=== PATIENT | female | born 1945 | race Caucasian/White ===

== ENCOUNTER 2018-06-17 11:01 | Outpatient (CLI) | payer MEDICARE, MEDICAID, SELFPAY ==
--- NOTE | 2018-06-17 09:00 | DIABASSESS_ITS ---
ASSESSMENT: Francisca presents today for removal of professional CGM after 7 day study.~ She describes being more aware of her DM management choices while wearing the CGM, and feels was able to impact her BSs in a positive way.~ Monitoring:~ There was no detected hypoglycemia.~ BS pattern in range most of the night and day, with high pattern following 1 or 2 of her meals each day.~ She tracked her food/insulin/exercise/stress events in a paper log.~ INTERVENTION:~ The following AADE-7 self-care topics are addressed per pt s interests and today s assessment of needs. DM MEDS:~ Novolog schedule revised ICR and CF MONITORING:~ Discussed value, benefits, and compared available CGM therapies. Regarding her blood sugar pattern from monitoring, her blood sugar increased with each meal indicating inadequate insulin coverage for food. Given this, discussed having insulin scale that included meals that raise blood sugar versus meals that mallory not have carbohydrate present and she agrees. Also discussed having it increase by 1 unit for correction rather than 2 units and she agrees with that as well. DIETARY:~ Reviewed carb ID and she is able to identify the foods that raise her blood sugar. PLAN:~ Copy of recommendations and CGM reports provided to Francisca upon her request.~ She plans to bring this with her to initial Endo appt next month.~ Francisca expresses desire to obtain personal CGM, and she has chosen to pursue Dexcom G- 6.~ Application provided for this.~ She will notify DM program once she hears back about insurance coverage, however anticipate CGM will be a covered.~ Francisca s personal goal is to work with Endo to be evaluated for a CSII.~ Francisca s Novolog schedule is revised for her with the following scale: Francisca has chosen the following ACTION PLAN: *Check-in every 1-2wks with Edita Drew RD, CDE for revisions to bolus schedule as needed.~ *She will continue to exercise 2 days a week at the DM exercise program.~ ~~~~ I m eating carb Humalog: I m not eating Humalog: Below 100 0 units Below 100 0 101-130 3 101-130 0 131-150 6 131-150 0 151-170 7 151-170 1 171-190 8 171-190 2 191-210 9 191-210 3 211-230 10 211-230 4 231-250 11 231-250 5 251-270 12 251-270 6
== END 2018-06-17 11:02 ==
PROVIDERS: PCP Family Medicine; Visit Provider Dietitian, Registered
DX: E11.9 Type 2 diabetes mellitus without complications (principal); Z79.4 Long term (current) use of insulin; Z71.3 Dietary counseling and surveillance
CPT/HCPCS: 95250

== ENCOUNTER 2018-06-17 11:27 | Outpatient (RCR) | payer SELFPAY | END 2018-06-18 23:59 | disposition home or self-care (01) | LOC: CR 11:27 | PROVIDERS: PCP Family Medicine; Visit Provider Family Medicine | DX: Z51.89 Encounter for other specified aftercare (principal) ==

== ENCOUNTER 2018-06-24 16:22 | Outpatient (REF) | payer MEDICARE, MEDICAID, SELFPAY | END 2018-06-24 16:42 | LOC: NCHCN 16:22 | PROVIDERS: PCP Family Medicine; Visit Provider Family Medicine | DX: R32 Unspecified urinary incontinence (principal) | CPT/HCPCS: 87077; 87086; 87186 ==

== ENCOUNTER 2018-06-29 01:01 | Outpatient (CLI) | payer MEDICARE, MEDICAID, SELFPAY ==
--- NOTE | 2018-06-29 10:59 | DI.RAD_ITS ---
SYMPTOM/DIAGNOSIS: COUGH, R05 PA AND LATERAL CHEST: Comparison is made with 26 July 2015. The heart size is normal. A hiatal hernia is again noted, moderate in size. The lungs appear clear. No infiltrate or effusion is seen. IMPRESSION: Hiatal hernia. No acute abnormality.
== END 2018-06-29 01:21 ==
PROVIDERS: PCP Family Medicine; Visit Provider Family Medicine
DX: R05 Cough (principal); K44.9 Diaphragmatic hernia without obstruction or gangrene
CPT/HCPCS: 71046

== ENCOUNTER 2018-07-06 16:43 | Outpatient (REF) | payer MEDICARE, MEDICAID, SELFPAY | END 2018-07-06 17:03 | LOC: NCHCN 16:43 | PROVIDERS: PCP Family Medicine; Referring Provider Family Medicine; Visit Provider Family Medicine | DX: N39.0 Urinary tract infection, site not specified (principal) | CPT/HCPCS: 87086 ==

== ENCOUNTER 2018-07-08 00:54 | Outpatient (CLI) | payer MEDICARE, MEDICAID, SELFPAY ==
--- NOTE | 2018-07-08 10:50 | DI.MAMMO_ITS ---
SYMPTOMS/DIAGNOSIS: SCREENING, Z12.31 MAMMOGRAM: Mammograms were interpreted according to the usual protocol including computer analysis with CAD system, tomosynthesis and C view imaging. The breast tissue is of moderate radiodensity. There is no evidence of a mass. There are no suspicious calcifications and there has been no significant interval change when compared with prior images. SUMMARY: No evidence of malignancy. Yearly screening mammography is recommended. Category I. Category B for breast density. SA ASSESSMENT OF FINDINGS: Negative. Category 1. Patient will receive a letter notifying them of these results. BI-RADS category B. There are scattered areas of fibroglandular density.
== END 2018-07-08 01:14 ==
PROVIDERS: PCP Family Medicine; Visit Provider Family Medicine
DX: Z12.31 Encounter for screening mammogram for malignant neoplasm of breast (principal)
CPT/HCPCS: 77063; 77067

== ENCOUNTER 2018-07-15 09:00 | Outpatient (RCR) | payer SELFPAY | END 2018-07-18 23:59 | disposition home or self-care (01) | LOC: CR 09:00 | PROVIDERS: PCP Family Medicine; Visit Provider Family Medicine | DX: Z51.89 Encounter for other specified aftercare (principal) ==

== ENCOUNTER 2018-07-19 14:34 | Outpatient (RCR) | payer SELFPAY | END 2018-08-18 23:59 | disposition home or self-care (01) | LOC: CR 14:34 | PROVIDERS: PCP Family Medicine; Visit Provider Family Medicine | DX: Z51.89 Encounter for other specified aftercare (principal) ==

== ENCOUNTER 2018-07-26 09:50 | Outpatient (REF) | payer MEDICARE, SELFPAY, MEDICAID ==
[2018-07-26 20:47] LABS: C-Reactive Protein 0.21 mg/dL (0.0-0.3)
[2018-07-26 21:21] LABS: ESR 11 MM/HR (0-30)
== END 2018-07-26 10:10 ==
LOC: NCHCN 09:50
PROVIDERS: PCP Family Medicine; Visit Provider Specialist/Technologist Athletic Trainer
DX: M35.3 Polymyalgia rheumatica (principal); T30.4 Corrosion of unspecified body region, unspecified degree
CPT/HCPCS: 85652; 86140

== ENCOUNTER 2018-08-19 04:55 | Outpatient (RCR) | payer SELFPAY | END 2018-09-17 23:59 | disposition home or self-care (01) | LOC: CR 04:55 | PROVIDERS: PCP Family Medicine; Visit Provider Family Medicine | DX: Z51.89 Encounter for other specified aftercare (principal) ==

== ENCOUNTER 2018-09-30 09:00 | Outpatient (RCR) | payer SELFPAY | END 2018-10-18 23:59 | LOC: CR 09:00 | PROVIDERS: PCP Family Medicine; Visit Provider Family Medicine | DX: Z51.89 Encounter for other specified aftercare (principal) ==

== ENCOUNTER 2018-09-30 17:01 | Outpatient (CLI) | payer MEDICARE, MEDICAID, SELFPAY ==
--- NOTE | 2018-09-30 11:00 | DIABASSESS_ITS ---
DESCRIPTION/ASSESSMENT: Francisca Kong presents for diabetes self management with her new Dexcom G5 for insertion instruction and support. She voices excitement about using this device to help her improve glycemic control. She voices concern about being able to insert device independently with her degree of visual impairment. INTERVENTION: Laine Gordillo, RD, CDE and myself reviewed instructions, precautions and procedure for insertion and use of the G5 per protocol. The device is inserted without difficulty and linked to the field operations coordinator. Francisca understands that she needs to calibrate using her new glucometer when the field operations coordinator indicates. Reviewed differences between G5 and G6 to clarify current procedures. Set up new glucometer and calibrated it to the time on the CGM. ACTION PLAN: Francisca will call with any questions or concerns. She will return for new insertion in 2 weeks. Individual DSME/T __2__ units billed TIME IN: 1100 OUT: 1210 No DM group education series being offered at this time.
== END 2018-09-30 17:21 ==
PROVIDERS: PCP Family Medicine; Visit Provider Dietitian, Registered
DX: E11.9 Type 2 diabetes mellitus without complications (principal); Z79.4 Long term (current) use of insulin; Z71.3 Dietary counseling and surveillance
CPT/HCPCS: G0108

== ENCOUNTER 2018-11-04 13:23 | Outpatient (REF) | payer MEDICARE, MEDICAID, SELFPAY ==
[2018-11-04 21:38] LABS: HCT 39.3 % (36.0-46.0); HGB 12.8 g/dL (12.0-15.5); Mean Corp. HGB Concentration 32.6 g/dL (32.0-36.0); Mean Corpuscular Hemoglobin 29.9 pg (27.0-33.0); Mean Corpuscular Volume 91.8 fL (80-95); Mean Platelet Volume 11.6 fL (8.0-11.0); Platelet Count 235 x1000/uL (130-400); RBC 4.28 m/cumm (4.00-5.20); RBC Distribution Width 12.8 % (11.7-14.6); White Blood Cell Count 10.52 k/cumm (4.4-10.8)
[2018-11-04 21:44] LABS: ALT 27 U/L (12-78); AST 17 U/L (15-37); Albumin 3.7 g/dL (3.4-5.0); Alkaline Phosphatase 72 U/L (46-116); Anion Gap 11.3 mmol/L (3-11); BUN 17 mg/dL (7-18); Bilirubin, Total 0.3 mg/dL (0.2-1.0); C-Reactive Protein 0.25 mg/dL (0.0-0.3); CO2 26.7 mmol/L (21.0-32.0); CREATININE 0.87 mg/dL (0.55-1.02); Calcium 9.2 mg/dL (8.5-10.1); Chloride 102 mmol/L (98-107); Glucose 192 mg/dL (70-100); Lipase 81 U/L (73-393); Magnesium 1.7 mg/dL (1.8-2.4); Potassium 4.3 mmol/L (3.5-5.1); Sodium 140 mmol/L (136-145); Total Protein 6.9 g/dL (6.4-8.2)
[2018-11-04 22:22] LABS: ESR 10 MM/HR (0-30)
== END 2018-11-04 13:43 ==
LOC: NCHCN 13:23
PROVIDERS: PCP Family Medicine; Visit Provider Family Medicine
DX: R10.11 Right upper quadrant pain (principal); M35.3 Polymyalgia rheumatica; E11.9 Type 2 diabetes mellitus without complications
CPT/HCPCS: 80053; 83690; 85027; 85652; 83735; 86140

== ENCOUNTER 2018-11-16 09:00 | Outpatient (RCR) | payer SELFPAY | END 2018-11-18 23:59 | disposition home or self-care (01) | LOC: CR 09:00 | PROVIDERS: PCP Family Medicine; Visit Provider Family Medicine | DX: Z51.89 Encounter for other specified aftercare (principal) ==

== ENCOUNTER 2018-12-07 00:52 | Outpatient (CLI) | payer MEDICARE, MEDICAID, SELFPAY ==
[2018-12-07 10:39] LABS: Bilirubin Negative (Negative); Blood Moderate (Negative); Clarity Clear; Glucose Negative (Negative); Ketones Negative (Negative); Leukocyte Esterase Negative (Negative); Nitrite Negative (Negative); Specific Gravity 1.025 (1.005-1.025); Urobilinogen 0.2 EU/dL (Up TO 0.2); pH 5.5 (5-8)
--- NOTE | 2018-12-07 10:45 | DIABASSESS_ITS ---
DESCRIPTION/ASSESSMENT: Francisca presents for diabetes self management every 2 weeks for CGM placement and today we will review her diabetes self management focused on nutrition as she notes her blood sugars are elevated and wants to correct this. Food Guidelines Francisca documents her food and eats minimally most meals: breakfast sausage links and 2 eggs; lunch homemade clam chowder, supper steak, 2 slices sourdough bread; instant pudding. She might have a candy between meals. She has cranberry juice with water in the afternoon. She dislikes most vegetables. Physical Activity - attends cardiac rehab twice weekly. Because she is legally blind she does not feel confident to exercise independently. Medication - She manages blood sugar with 12u Levemir AM and 4u PM and mealtime Humalog 4-16 units per meal based on blood sugar. She is on Prednisone down to 4mg daily next week. Monitoring - 3 times a day at least, and she wears the Dexcom G5 CGM. She tracks all blood sugars. Risks/Related health history - Francisca relates multiple co-morbidities including back pain and most recently kidney stones. Coping - Francisca relates high stress in her life with her partner forgetting and on a 'spectrum'; children with health issues. She has coping mechanisms including meditation, books for the blind, and volunteering. 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 INTERVENTION: DSME is provided in the following AADE 7 areas based on patients interest and assessment of needs: Food Guidelines - discussed carbohydrate sources and distribution; weight acceptance; recipes; Francisca eats minimally Physical Activity - discussed chair exercises as possible. Monitoring - CGM replaced without difficulty. Francisca is able to input all calibration values. Medication - Francisca has hyperglycemia above 200 most days indicating inadequate insulin administration. Fastin blood sugars 088=475. Discussed increasing Levemir by 1 unit in the evening. In addition, noon blood sugars are always elevated from breakfast. She would benefit from increasing her mealtime insulin dose by 1 unit at breakfast. Coping - discussed options for getting to do the things that she enjoys. ACTION PLAN: Francisca will cut her carbohydrate portions at one meal per day set time to dictate her book at least one day a week consider increasing breakfast mealtime insulin by 1 unit, or consider increasing Levemir at night by 1 unit Individual MNT __2__ units billed TIME IN: 1035 OUT: 1110 for nutrition; out at 1145 including DSME No DM group education series being offered at this time.
[2018-12-07 11:10] LABS: Epithelial Cells Many HPF (Negative); RBC 20-50 (0-2)
[2018-12-07 11:11] LABS: Bacteria Moderate HPF (Negative); C & S Indicated? No/Sq. Contamination; Casts Negative LPF (Negative); Crystals Negative HPF (Negative); Mucus Heavy (Negative)
== END 2018-12-07 01:12 ==
PROVIDERS: PCP Family Medicine; Visit Provider Dietitian, Registered
DX: R32 Unspecified urinary incontinence (principal); E11.9 Type 2 diabetes mellitus without complications; Z79.4 Long term (current) use of insulin; Z71.3 Dietary counseling and surveillance
CPT/HCPCS: 97802; 81003; 81015

== ENCOUNTER 2018-12-07 10:00 | Outpatient (RCR) | payer SELFPAY | END 2018-12-16 23:59 | disposition home or self-care (01) | LOC: CR 10:00 | PROVIDERS: PCP Family Medicine; Visit Provider Family Medicine | DX: Z51.89 Encounter for other specified aftercare (principal) ==

== ENCOUNTER 2018-12-07 10:16 | Outpatient (REF) | payer MEDICARE, MEDICAID, SELFPAY | END 2018-12-07 10:36 | LOC: NCHCN 10:16 | PROVIDERS: PCP Family Medicine; Visit Provider Family Medicine | DX: R32 Unspecified urinary incontinence (principal) ==

== ENCOUNTER 2018-12-30 01:41 | Outpatient (CLI) | payer MEDICARE, MEDICAID, SELFPAY ==
--- NOTE | 2018-12-30 10:30 | DIABASSESS_ITS ---
DESCRIPTION/ASSESSMENT: Francisca presents for diabets self management to download her CGM to review patterns. Her printout indicates hyperglycemia through the night 2/4 nights; a blood sugar rise between noon and 7PM. She follows her old insulin dosing scale. Francisca continues to appreciate the CGM for its alerts and to have a reading at all times. Blood sugars over the past week fasting 101-147; pre=lunch 226-313; pre-supper 230=869; bedtime 156-245. She is requesting a revision of the scale that includes carbohydrate so that it better matches her old scale without the carbohydrate consideration and will address her hyperglycemia as the day progresses. She is taking 7-10 units Novolog with meals; Levemir 12 units AM 4 units PM. Total basal insulin 16units; total bolus insulin 42-52 units. Francisca states she is trying hard to limit carbohydrates but she does 'splurge' in the evening at times. SHe has minimal carbohydrate with her meals. INTERVENTION: Francisca takes nearly 3 x bolus insulin to basal insulin. Fasting blood sugars reasonably close to acceptable levels but has room to improve. Her blood sugars increase between breakfast and lunch but correct by supper. She is given the following insulin dosing scale: Mealtime Insulin Dosing for Francisca I?m eating carb Humalog: I?m not eating carb Humalog Below 100 0 units Below 100 0 101-130 4 101-130 0 131-150 7 131-150 1 151-165 8 151-165 2 165-180 9 166-180 3 181-195 10 181-195 4 196-210 11 196-210 5 211-225 12 211-225 6 226-240 13 226-240 7 241-255 14 241-255 14 256-270 15 256-270 15 271-285 16 271-285 16 Further suggested she take 6 units Levemir at night. Given that she has a low alert set, she will unlikely have an untreated hypoglycemic episode. She has what she need to treat hypoglycemia. She will return in 1 week for CGM placement. ACTION PLAN: Use new Humalog dosing scale; consider increasing Levemir from 4 to 6 units at night. Individual DSME/T __2__ units billed TIME IN: 1030 OUT: 1130 No DM group education series being offered at this time.
== END 2018-12-30 02:01 ==
PROVIDERS: PCP Family Medicine; Visit Provider Dietitian, Registered
DX: E11.9 Type 2 diabetes mellitus without complications (principal); Z79.4 Long term (current) use of insulin; Z71.3 Dietary counseling and surveillance
CPT/HCPCS: G0108

== ENCOUNTER 2019-01-11 10:00 | Outpatient (RCR) | payer SELFPAY | END 2019-01-16 23:59 | disposition home or self-care (01) | LOC: CR 10:00 | PROVIDERS: PCP Family Medicine; Visit Provider Family Medicine | DX: Z51.89 Encounter for other specified aftercare (principal) ==

== ENCOUNTER 2019-02-15 10:00 | Outpatient (RCR) | payer SELFPAY | END 2019-02-15 23:59 | disposition home or self-care (01) | LOC: CR 10:00 | PROVIDERS: PCP Family Medicine; Visit Provider Family Medicine | DX: Z51.89 Encounter for other specified aftercare (principal) ==

== ENCOUNTER 2019-02-24 01:45 | Outpatient (CLI) | payer MEDICARE, MEDICAID, SELFPAY ==
--- NOTE | 2019-02-24 11:00 | DIABASSESS_ITS ---
DESCRIPTION/ASSESSMENT: Francisca Kong presents for diabetes self management support focused on carbohydrate. She has a CGM that is placed here every two weeks. She is happy with the device and its features. Francisca is currently concerned with her hyperglycemia during the day. Francisca takes 12u Levemir twice daily and Humalog 3-4 times a day at mealtime, regardless of whether she eats carbohydrate at the meal. Generally she is taking ~40 units Humalog a day. She is not comfortable counting carbohydrate as a way to dose her mealtime insulin. She also uses the scale for insulin with carbohydrate even if she is not eating carbohydrate. She has trialed not eating carbohydrate at meals and finds her blood sugars do not spike after the meal. Fasting blood sugars 130-155 over past 4 days; 205-306 at noon; 173 -310 at supper and one test at bedtime of 220. Given that her blood sugars are always elevated after fasting, insulin adjustment is suggested, especially given she has CGM to alert her to low blood sugars. Francisca continues to experience high stress and she is aware of this impact on glycemic control. INTERVENTION: Reviewed carbohydrate sources, portions, distribution in what she usually eats. Reviewed carbohydrate intake in relation to her insulin dose and responding blood sugars. Suggest increase in mealtime insulin starting at 3 units for below 100mg/dl, Discussed increasing Levemir to 14 units twice daily given the imbalance of basal to bolus insulin during the day. Reviewed stress management and self-care efforts. PLAN: Francisca will follow the new insulin dosing scale and follow up next week to review food and blood sugars when she returns for CGM placement. Individual MNT __3__ units billed out of a total of 65 minutes No DM group education series being offered at this time.
== END 2019-02-24 02:05 ==
PROVIDERS: PCP Family Medicine; Visit Provider Dietitian, Registered
DX: E11.9 Type 2 diabetes mellitus without complications (principal); Z76.4 Other boarder to healthcare facility; Z71.3 Dietary counseling and surveillance
CPT/HCPCS: 97803

== ENCOUNTER 2019-02-25 13:32 | Outpatient (REF) | payer MEDICARE, MEDICAID, SELFPAY ==
[2019-02-25 19:37] LABS: Abs Immature Grans 0.02 k/cumm (0.0-0.09); Absolute Basophil Count 0.02 k/cumm (0.0-0.2); Absolute Eosinophil Count 0.06 k/cumm (0.0-0.7); Absolute Lymphocyte Count 1.72 k/cumm (1.2-3.4); Absolute Neutrophil Count 6.89 k/cumm (1.2-6.7); Basophils % 0.2; Eosinophils % 0.7; HCT 38.4 % (36.0-46.0); HGB 12.1 g/dL (12.0-15.5); Immature Grans % 0.2; Lymphocytes % 18.9; Mean Corp. HGB Concentration 31.5 g/dL (32.0-36.0); Mean Corpuscular Hemoglobin 28.7 pg (27.0-33.0); Mean Platelet Volume 11.8 fL (8.0-11.0); Monocytes % 4.4; Neutrophils % 75.6; Platelet Count 208 x1000/uL (130-400); RBC 4.22 m/cumm (4.00-5.20); RBC Distribution Width 13.6 % (11.7-14.6); White Blood Cell Count 9.11 k/cumm (4.4-10.8)
[2019-02-25 19:58] LABS: C-Reactive Protein 0.28 mg/dL (0.0-0.3)
[2019-02-25 20:22] LABS: ESR 10 MM/HR (0-30)
== END 2019-02-25 13:52 ==
LOC: NCHCN 13:32
PROVIDERS: PCP Family Medicine; Visit Provider Family Medicine
DX: R10.12 Left upper quadrant pain (principal); N95.1 Menopausal and female climacteric states
CPT/HCPCS: 85652; 85025; 86140

== ENCOUNTER 2019-03-08 10:00 | Outpatient (RCR) | payer SELFPAY | END 2019-03-18 23:59 | disposition home or self-care (01) | LOC: CR 10:00 | PROVIDERS: PCP Family Medicine; Visit Provider Family Medicine | DX: Z51.89 Encounter for other specified aftercare (principal) ==

== ENCOUNTER 2019-03-22 01:45 | Outpatient (CLI) | payer MEDICARE, MEDICAID, SELFPAY ==
--- NOTE | 2019-03-22 10:30 | DIABASSESS_ITS ---
DESCRIPTION/ASSESSMENT: CGM insert today and to interpret insulin dosing guide from [facility]. She expresses frustration that they did not appear to appreciate her lack of vision and difficulty identifying carbohydrate. INTERVENTION: Placed [facility] dosing guide into familiar format for Francisca. Reviewed materials with her. ACTION PLAN: Will mail her the revised insulin dosing guide. Individual DSME/T __0__ units billed TIME IN: 1030 OUT: 1045 No DM group education series being offered at this time. Mealtime Insulin Dosing for Francisca I?m eating carb Humalog: I?m not eating carb Humalog Below 100 2units Below 100 0 101-130 4 101-130 0 131-150 6 131-150 0 151-165 9 151-180 1 165-180 10 180-210 2 181-195 11 210-240 3 196-210 12 241-270 4 211-225 13 271-300 5 226-240 14 301-330 6 241-255 15 331-360 7 256-270 16 361-390 8 271-285 17 391-420 9 This assumes 60 grams carbohydrate per meal
== END 2019-03-22 02:05 ==
PROVIDERS: PCP Family Medicine; Visit Provider Dietitian, Registered
DX: E11.9 Type 2 diabetes mellitus without complications (principal); Z79.4 Long term (current) use of insulin; Z71.3 Dietary counseling and surveillance

== ENCOUNTER 2019-04-14 11:25 | Outpatient (RCR) | payer SELFPAY | END 2019-04-17 23:59 | disposition home or self-care (01) | LOC: CR 11:25 | PROVIDERS: PCP Family Medicine; Visit Provider Family Medicine | DX: Z51.89 Encounter for other specified aftercare (principal) ==

== ENCOUNTER 2019-04-23 07:10 | Outpatient (CLI) | payer MEDICARE, MEDICAID, SELFPAY ==
[2019-04-23 09:42] LABS: HCT 38.2 % (36.0-46.0); HGB 12.4 g/dL (12.0-15.5)
[2019-04-23 10:24] LABS: ALT 22 U/L (12-78); AST 6 U/L (15-37); Albumin 3.7 g/dL (3.4-5.0); Alkaline Phosphatase 85 U/L (46-116); Anion Gap 11.5 mmol/L (3-11); BUN 24 mg/dL (7-18); Bilirubin, Total 0.3 mg/dL (0.2-1.0); CO2 26.5 mmol/L (21.0-32.0); CREATININE 0.79 mg/dL (0.55-1.02); Calcium 9.5 mg/dL (8.5-10.1); Chloride 104 mmol/L (98-107); Glucose 111 mg/dL (70-100); Potassium 4.3 mmol/L (3.5-5.1); Sodium 142 mmol/L (136-145); Total Protein 6.7 g/dL (6.4-8.2)
[2019-04-23 10:29] LABS: Digoxin 0.38 ng/mL (0.90-2.00)
[2019-04-23 10:32] LABS: C-Reactive Protein < 0.05 mg/dL (0.0-0.3)
== END 2019-04-23 07:30 ==
PROVIDERS: PCP Family Medicine; Visit Provider Nurse Practitioner Family
DX: I47.1 Supraventricular tachycardia (principal); Z79.899 Other long term (current) drug therapy; Z51.81 Encounter for therapeutic drug level monitoring; L40.50 Arthropathic psoriasis, unspecified
CPT/HCPCS: 36415; 80053; 80162; 85014; 85018; 86140

== ENCOUNTER 2019-05-17 13:27 | Outpatient (RCR) | payer SELFPAY | END 2019-05-18 23:59 | disposition home or self-care (01) | LOC: CR 13:27 | PROVIDERS: PCP Family Medicine; Visit Provider Family Medicine | DX: Z51.89 Encounter for other specified aftercare (principal) ==

== ENCOUNTER 2019-06-14 11:44 | Outpatient (RCR) | payer SELFPAY | END 2019-06-18 23:59 | disposition home or self-care (01) | LOC: CR 11:44 | PROVIDERS: PCP Family Medicine; Visit Provider Family Medicine | DX: Z51.89 Encounter for other specified aftercare (principal) ==

== ENCOUNTER 2019-06-21 00:43 | Outpatient (CLI) | payer MEDICARE, MEDICAID, SELFPAY ==
--- NOTE | 2019-06-21 11:22 | DI.RAD_ITS ---
SYMPTOMS/DIAGNOSIS: LOW BACK PAIN, M54.5 LUMBAR SPINE: Comparison is made with 4Feb09. There is no evidence of compression fracture. Endplate osteophytes are seen throughout. The degenerative disc changes have worsened somewhat when compared with the previous exam. There are facet degenerative changes at L 4 - 5 causing mild L 4 - 5 spondylolisthesis. There is no spondylolysis or significant scoliosis. Severe degenerative disc changes are again seen at L 5 - S 1. IMPRESSION: Degenerative changes. No acute abnormality.
== END 2019-06-21 01:03 ==
PROVIDERS: PCP Family Medicine; Visit Provider Family Medicine
DX: M54.5 Low back pain (principal); M51.37 Other intervertebral disc degeneration, lumbosacral region; M43.17 Spondylolisthesis, lumbosacral region
CPT/HCPCS: 72110

== ENCOUNTER 2019-07-07 10:00 | Outpatient (RCR) | payer SELFPAY | END 2019-07-18 23:59 | disposition home or self-care (01) | LOC: CR 10:00 | PROVIDERS: PCP Family Medicine; Visit Provider Family Medicine | DX: Z51.89 Encounter for other specified aftercare (principal) ==

== ENCOUNTER → 2019-07-07 11:37 | Outpatient (BNVA) | payer MEDICARE, MEDICAID, SELFPAY | PROVIDERS: PCP Family Medicine; Visit Provider Internal Medicine Cardiovascular Disease | DX: I25.10 Atherosclerotic heart disease of native 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 without angina pectoris (principal); I10 Essential (primary) hypertension; I47.1 Supraventricular tachycardia; E11.42 Type 2 diabetes mellitus with diabetic polyneuropathy; J44.9 Chronic obstructive pulmonary disease, unspecified; Z79.4 Long term (current) use of insulin; Z87.891 Personal history of nicotine dependence | CPT/HCPCS: 99214 ==

== ENCOUNTER 2019-07-16 09:41 | Emergency (ER) | payer MEDICARE, MEDICAID, SELFPAY ==
[2019-07-16] VITALS (52 sets, daily range): BP systolic 128–169; BP diastolic 62–102; PULSE 73–93; RESP 12–30; TEMP 36.5; O2SAT 93–99
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
[2019-07-16 10:28] LABS: Bilirubin Negative (Negative); Blood Negative (Negative); Clarity Clear (Clear); Glucose 100 mg/dL (Negative); Ketones Negative (Negative); Leukocyte Esterase Negative (Negative); Nitrite Negative (Negative); Specific Gravity <= 1.005 (1.005-1.025); Urobilinogen 0.2 EU/dL (Up TO 0.2); pH 5.5 (5-8)
[2019-07-16 10:32] LABS: Abs Immature Grans 0.04 k/cumm (0.0-0.09); Absolute Basophil Count 0.01 k/cumm (0.0-0.2); Absolute Eosinophil Count 0.04 k/cumm (0.0-0.7); Absolute Lymphocyte Count 0.86 k/cumm (1.2-3.4); Absolute Neutrophil Count 11.55 k/cumm (1.2-6.7); Basophils % 0.1; Eosinophils % 0.3; HCT 36.7 % (36.0-46.0); Immature Grans % 0.3; Lymphocytes % 6.4; Mean Corp. HGB Concentration 32.7 g/dL (32.0-36.0); Mean Corpuscular Hemoglobin 29.7 pg (27.0-33.0); Mean Corpuscular Volume 90.8 fL (80-95); Mean Platelet Volume 10.9 fL (8.0-11.0); Monocytes % 6.7; Neutrophils % 86.2; Platelet Count 197 x1000/uL (130-400); RBC 4.04 m/cumm (4.00-5.20); RBC Distribution Width 13.7 % (11.7-14.6)
[2019-07-16 10:45] LABS: ALT 23 U/L (14-59); AST 12 U/L (15-37); Albumin 3.5 g/dL (3.4-5.0); Alkaline Phosphatase 67 U/L (46-116); Anion Gap 13.3 mmol/L (3-11); BUN 24 mg/dL (7-18); Bilirubin, Total 0.6 mg/dL (0.2-1.0); CO2 24.7 mmol/L (21.0-32.0); CREATININE 1.51 mg/dL (0.55-1.02); Calcium 8.9 mg/dL (8.5-10.1); Chloride 99 mmol/L (98-107); Glucose 188 mg/dL (70-100); Magnesium 1.8 mg/dL (1.8-2.4); Sodium 137 mmol/L (136-145); Total Protein 7.8 g/dL (6.4-8.2)
[2019-07-16 10:56] LABS: Troponin I < 0.05 ng/mL (0.00-0.06)
--- NOTE | 2019-07-16 12:05 | DI.CT_ITS ---
EXAM: CT ABDOMEN PELVIS WO CLINICAL HISTORY: r/o kidney stone vs SBO. TECHNIQUE: .Imaging Protocol: Axial computed tomography images with coronal and sagittal reformatted images were created and reviewed CONTRAST MATERIAL: Intravenous: Omnipaque 350 Contrast volume:0 cc contrast route:IV - Oral:No COMPARISON: RENAL COLIC WO CONTRAST from 10/31/2015 FINDINGS: ABDOMEN: Lung Bases: Normal where visualized. Liver: There is moderate diffue fatty infiltration of the liver. No measurable mass. Gallbladder and biliary tract: There is a density in the dependent portion of the gallbladder suspici ous for stone. There is no biliary ductal dilatation. Pancreas: Normal density, no abnormal calcifications or inflammatory process. Spleen: Normal. Kidneys: Normal size, contour and axis. There is a 5 x 1 cm stone at the left ureteropelvic junction. It causes moderate hydronephrosis. There are right renal cysts present. Adrenal glands: No masses seen. Abdominal Aorta: Abdominal portion non-dilated. No significant abdominal or pelvic adenopathy is pres ent. PELVIS: Bladder: Symmetric distention, no gross wall thickening. The reproductive organs are unremarkable as visualized. Bowel: No obstruction or bowel wall thickening. There is colonic diverticulosis, but no evidence of a cute diverticulitis is present. There is a large hiatal hernia present Peritoneal cavity: No ascites, collection or mesenteric inflammatory response. Bones: Degenerative changes are present throughout the spine. IMPRESSION: 0.5 x 1 cm bone at the left ureteropelvic junction causing moderate left hydronephrosis DATA REPOSITORY: All CT scans at this facility are submitted to the National Radiology Data Registry (NRDR) Dose Index Registry (DIR) with the [employer] (A[employer]). RADIATION OPTIMIZATION: All CT scans at this facility use at least one of these dose optimization te chniques: automated exposure control; mA and/or kV adjustment per patient size (includes targeted exa ms where dose is matched to clinical indication); or iterative reconstruction.
[2019-07-16] MEDS: Normal Saline 500 ML IV (12:30)
[2019-07-16] MEDS: Lidocaine 5% Patch 1 PATCH TP (13:15)
[2019-07-16] MEDS: oxyCODONE 5 MG TAB PO (13:16)
--- NOTE | 2019-07-16 13:35 | DI.VRAD_ITS ---
PROCEDURE INFORMATION: Exam: CT Abdomen and Pelvis Without Contrast Exam date and time: 07/16/2019 11:59 AM Clinical history: 74 years old, female; Abdominal pain; Generalized; Patient HX: R/O kidney stone vs sbo TECHNIQUE: Imaging protocol: Computed tomography of the abdomen and pelvis without contrast. Radiation optimization: All CT scans at this facility use at least one of these dose optimization techniques: automated exposure control; mA and/or kV adjustment per patient size (includes targeted exams where dose is matched to clinical indication); or iterative reconstruction. COMPARISON: US PELVIS TRANSVAG 03/21/2014 3:06 PM FINDINGS: Liver: Enlarged fatty infiltrated liver. Gallbladder and bile ducts: Subtle layering density in the gallbladder. No calcified stones. No ductal dilation. Pancreas: Unremarkable. No ductal dilation. Spleen: Unremarkable.No splenomegaly. Adrenals: Unremarkable. No mass. Kidneys and ureters: Obstructive stone at the left ureteral pelvic junction produces moderate left hydronephrosis and perinephric fat stranding. The stone measures 5 mm diameter and 10 mm in length. Distally, the left ureter is normal caliber. Right renal cysts, largest measures approximately 6 cm and has simple features. Stomach and bowel: Large hiatal hernia containing at least half of the stomach. Small bowel is unremarkable. A moderate amount of solid stool and gas in the colon.Distal colonic diverticulosis without signs of diverticulitis. No evidence of bowel wall thickening, inflammation, obstruction or perforation. Appendix: No evidence of appendicitis. Intraperitoneal space: Unremarkable. No free air. No fluid collection. Vasculature: Unremarkable. No abdominal aortic aneurysm. Lymph nodes: Unremarkable. No enlarged lymph nodes. Bladder: Unremarkable as visualized. Reproductive: Unremarkable as visualized. Bones/joints: No acute bony abnormality. Multilevel degenerative changes of the spine, most significant at L2-3 and L4-5. Soft tissues: Tiny umbilical hernia containing fat only. IMPRESSION: 1. 5 mm diameter stone at the left UPJ produces moderate left hydronephrosis. 2. Gallbladder sludge or microlithiasis. No obstruction or inflammation. 3. Large hiatal hernia. 4. No small bowel obstruction. Dictated and Authenticated by: Alexsandra Ray MD. Ordering:CLIFF Davis MD
--- NOTE | 2019-07-16 14:10 | DI.RAD_ITS ---
EXAM: XR PORTABLE CHEST AP CLINICAL HISTORY: sob, r/o acute disease. TECHNIQUE: 2D digital imaging was performed. COMPARISON: XR CHEST 2V PA LATERAL from 06/29/2018 FINDINGS: LUNGS: No focal consolidating infiltrates are present. There is no pleural effusion or pneumothorax. No pleural abnormality seen. HEART: Normal. MEDIASTINUM: There is a large hiatal hernia. The pulmonary vasculature appears grossly unremarkable. OTHER FINDINGS: None. IMPRESSION: No acute pulmonary findings.
--- NOTE | 2019-07-16 14:27 | DI.VRAD_ITS ---
PROCEDURE INFORMATION: Exam: XR Chest, 1 View Exam date and time: 07/16/2019 2:03 PM Clinical history: 74 years old, female; Other: SOB, R/O acute disease TECHNIQUE: Imaging protocol: XR of the chest Views: 1 view. COMPARISON: CR XR CHEST 2V PA LATERAL 06/29/2018 10:44 AM FINDINGS: Lungs: Bilateral dependent atelectasis. No consolidation. Pleural space: Unremarkable. No pleural effusion. No pneumothorax. Heart/Mediastinum: Large hiatal hernia with associated atelectasis. Heart size cannot be accurately assessed due to the large hiatal hernia. Mild aortic wall calcifications. Bones/joints: No acute bony abnormality. IMPRESSION: 1. Large hiatal hernia. 2. Negative for acute cardiopulmonary pathology. Dictated and Authenticated by: Alexsandra Ray MD. Ordering:CLIFF Davis MD
[2019-07-16] MEDS: Tamsulosin 0.4 MG CAPCR PO (14:30)
--- NOTE | 2019-07-16 14:32 | NUR.NOTE ---
referral sent [facility].Nursing Note:
--- NOTE | 2019-07-16 14:32 | NUR.NOTE ---
pt medicated as per mdo with flomax Nursing Note:
== END 2019-07-16 14:48 | disposition home or self-care (01) ==
PROVIDERS: Emergency Provider Physician Assistant; PCP Family Medicine
DX: N13.0 Hydronephrosis with ureteropelvic junction obstruction (principal); K59.00 Constipation, unspecified; E11.9 Type 2 diabetes mellitus without complications; I10 Essential (primary) hypertension; J44.9 Chronic obstructive pulmonary disease, unspecified; Z79.84 Long term (current) use of oral hypoglycemic drugs; Z87.891 Personal history of nicotine dependence
CPT/HCPCS: 36415; 80053; 96360; 99285; 71045; 74176; 81003; 83735; 84484; 85025; 99284

== ENCOUNTER 2019-07-18 12:13 | Inpatient (IN) | payer MEDICARE, MEDICAID, SELFPAY ==
[2019-07-18] VITALS (43 sets, daily range): BP systolic 110–150; BP diastolic 53–78; PULSE 78–107; RESP 11–52; TEMP 36.5–37.7; O2SAT 90–98
[2019-07-18 12:43] LABS: Bilirubin Moderate (Negative); Blood Moderate (Negative); Clarity Sl Cloudy (Clear); Glucose Negative (Negative); Ketones 40 mg/dL (Negative); Leukocyte Esterase Negative (Negative); Nitrite Negative (Negative); Urobilinogen 0.2 EU/dL (Up TO 0.2); pH 5.5 (5-8)
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
[2019-07-18 12:59] LABS: Bacteria Few HPF (Negative); Crystals Few Amorphous HPF (Negative); Epithelial Cells Moderate HPF (Negative); Mucus Negative (Negative)
--- NOTE | 2019-07-18 12:59 | DI.RAD_ITS ---
EXAM: XR CHEST 2V PA LATERAL CLINICAL HISTORY: SOB. TECHNIQUE: 2D digital imaging was performed. COMPARISON: XR PORTABLE CHEST AP from 07/16/2019 FINDINGS: LUNGS: Clear. No pleural effusion or pneumothorax is identified. HEART: Normal. MEDIASTINUM: The pulmonary vasculature is unremarkable. There is again seen a large hiatal hernia. OTHER FINDINGS:Age-appropriate degenerative changes are seen in the spine. IMPRESSION: No acute pulmonary findings.
[2019-07-18 13:00] LABS: C & S Indicated? No
[2019-07-18 13:20] LABS: Abs Immature Grans 0.07 k/cumm (0.0-0.09); Absolute Basophil Count 0.02 k/cumm (0.0-0.2); Absolute Neutrophil Count 16.75 k/cumm (1.2-6.7); Basophils % 0.1; HCT 32.6 % (36.0-46.0); HGB 10.8 g/dL (12.0-15.5); Immature Grans % 0.4; Lymphocytes % 2.8; Mean Corp. HGB Concentration 33.1 g/dL (32.0-36.0); Mean Corpuscular Hemoglobin 29.8 pg (27.0-33.0); Mean Corpuscular Volume 89.8 fL (80-95); Mean Platelet Volume 10.6 fL (8.0-11.0); Neutrophils % 89.7; Platelet Count 185 x1000/uL (130-400); RBC 3.63 m/cumm (4.00-5.20); RBC Distribution Width 13.7 % (11.7-14.6); White Blood Cell Count 18.67 k/cumm (4.4-10.8)
[2019-07-18 13:27] LABS: Absolute Lymphocyte Count 0.52 k/cumm (1.2-3.4); Absolute Monocyte Count 1.31 k/cumm (0.11-0.7)
[2019-07-18 13:35] LABS: INR 1.1 (0.9-1.1); PTT Activated 28.9 sec (21.0-31.4); Prothrombin Time 10.9 sec (9.3-11.0)
[2019-07-18 13:39] LABS: ALT 31 U/L (14-59); AST 31 U/L (15-37); Albumin 2.8 g/dL (3.4-5.0); Alkaline Phosphatase 66 U/L (46-116); Anion Gap 17.4 mmol/L (3-11); BUN 28 mg/dL (7-18); Bilirubin, Total 0.5 mg/dL (0.2-1.0); CO2 17.6 mmol/L (21.0-32.0); CREATININE 1.89 mg/dL (0.55-1.02); Calcium 8.3 mg/dL (8.5-10.1); Chloride 95 mmol/L (98-107); Estimated GFR 25.86 (mL/min/1.73m2); Glucose 249 mg/dL (70-100); Magnesium 1.7 mg/dL (1.8-2.4); Sodium 130 mmol/L (136-145); Troponin I 0.06 ng/mL (0.00-0.06)
[2019-07-18 13:52] LABS: D-Dimer > 7500 ng/mlFEU (<500)
[2019-07-18] MEDS: Normal Saline 250 ML IV (14:15)
[2019-07-18 14:38] LABS: Lactate 1.1 mmol/L (0.6-1.4)
[2019-07-18 14:39] LABS: NT-proBNP 899 pg/mL
[2019-07-18] MEDS: POTASSIUM CHLORIDE 20 MEQ/100 ML BAG 50 MEQ IVPB (14:40)
--- NOTE | 2019-07-18 14:44 | DI.US_ITS ---
EXAM: US RENAL CLINICAL HISTORY: left flank pain. TECHNIQUE: Ultrasound performed using standard protocol. COMPARISON: PELVIS TRANSVAG from 03/21/2014 CT ABDOMEN PELVIS WO from 07/16/2019 FINDINGS: The right kidney measures 17 cm in length. There are several simple cysts present. The largest is i n the inferior pole. It measures 6 x 5.6 x 5.7 cm. There is a thin septation internally. This was present on the CT scan from 07/16/2019. No nephrolithiasis or hydronephrosis is present. The left kidney measures 12.6 cm. There is mild to moderate hydronephrosis present. This is similar to the CT scan from 07/16/2019. No nephrolithiasis is present. The prevoid urinary bladder volume was 111 cc. The ureteral jets were not visualized. The bladder c ompletely emptied upon voiding. IMPRESSION: [id number] left hydronephrosis.
--- NOTE | 2019-07-18 15:05 | DI.CT_ITS ---
EXAM: CT CHEST WO CLINICAL HISTORY: SOB. TECHNIQUE: Imaging protocol: Axial computed tomography images were obtained and coronal and sagittal reformatted images were created and reviewed. CONTRAST MATERIAL: Oral: No COMPARISON: No exams were available for comparison FINDINGS: Tracheobronchial tree: Unremarkable. Mediastinum and Theodora: No dominant adenopathy or fluid collection. There is a large hiatal hernia. Pulmonary parenchyma: No consolidation or dominant measurable mass. Mild dependent atelectatic change s are present in the lung bases. Pleura: No effusion or pneumothorax. Heart/Aorta: Thoracic aorta non-dilated. The heart is not dilated. Coronary artery calcifications are present. Upper abdomen: Hepatic steatosis. Lymph nodes: Within normal limits. There is patient motion artifact present. IMPRESSION: No acute pulmonary process. DATA REPOSITORY: All CT scans at this facility are submitted to the National Radiology Data Registry (NRDR) Dose Index Registry (DIR) with the [employer] (ACR). RADIATION OPTIMIZATION: All CT scans at this facility use at least one of these dose optimization te chniques: automated exposure control; mA and/or kV adjustment per patient size (includes targeted exa ms where dose is matched to clinical indication); or iterative reconstruction.
[2019-07-18 15:08] LABS: HCO3 (Venous) 20 mmol/L (22-28); O2 Sat (Venous) 76 % (70-80); TCO2 (Venous) 19 mmol/L (22-29); pCO2 (Venous) 33 mm/Hg (34-47); pH (Venous) 7.39 (7.32-7.43); pO2 (Venous) 42 mm/Hg (28-44)
[2019-07-18 15:39] LABS: Digoxin 0.69 ng/mL (0.90-2.00)
--- NOTE | 2019-07-18 15:53 | DI.CT_ITS ---
EXAM: CT RENAL COLIC WO CLINICAL HISTORY: left stone. TECHNIQUE: Imaging Protocol: Axial computed tomography images with coronal and sagittal reformatted images were created and reviewed. CONTRAST MATERIAL: Intravenous: Omnipaque 350 Contrast volume:0 mL contrast route:IV - Oral: No COMPARISON: RENAL COLIC WO CONTRAST from 10/31/2015 CT ABDOMEN PELVIS WO from 07/16/2019 FINDINGS: ABDOMEN: Lung Bases: Normal where visualized. Liver: There is fatty infiltration of the liver. There are hypodensities again seen in the left lobe . These appear stable dating back to October 31, 2015. These likely reflects cysts. Gallbladder and biliary tract: No radiodense calculus or dilation. Pancreas: There is pancreatic atrophy present. Spleen: Normal. Kidneys: There are stable right renal cysts. No nephrolithiasis is seen on the right there is no ramesh dence of right hydronephrosis. There is again seen a 1 cm stone in the proximal left ureter. There may be mild distal migration of the stone since the prior examination. There is persistent moderate hydronephrosis present. There i s again seen a hyperdense nodule in the midpole of the left kidney. This is unchanged dating back to the CT scan of the abdomen and pelvis from 10/31/2015. Adrenal glands: No masses seen. Abdominal Aorta: Abdominal portion non-dilated. PELVIS: Bladder: Symmetric distention, no gross wall thickening. The reproductive organs are unremarkable as visualized. Bowel: There diverticulosis of the colon. There is no evidence of acute diverticulitis. There is no evidence of bowel obstruction or inflammation. A normal appendix is visualized. Peritoneal cavity: No ascites, collection or mesenteric inflammatory response. Bones: Degenerative changes are seen in the spine. The findings are most marked at L5-S1. There fin dings consistent with central spinal canal stenosis at this level. IMPRESSION: 1 cm proximal left ureteral calculus causing moderate hydronephrosis. There may be mild distal migra tion of the stone compared to the prior examination. DATA REPOSITORY: All CT scans at this facility are submitted to the National Radiology Data Registry (NRDR) Dose Index Registry (DIR) with the [employer] (ACR). RADIATION OPTIMIZATION: All CT scans at this facility use at least one of these dose optimization te chniques: automated exposure control; mA and/or kV adjustment per patient size (includes targeted exa ms where dose is matched to clinical indication); or iterative reconstruction.
[2019-07-18] MEDS: Normal Saline 1,000 ML 1000 ML IV (16:28)
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
--- NOTE | 2019-07-18 17:02 | DI.VRAD_ITS ---
PROCEDURE INFORMATION: Exam: CT Abdomen and pelvis without contrast Exam date and time: 07/18/2019 4:29 PM Clinical history: 74 years old, female; Abnormal findings; Abnormal radiologic finding of the abdomen; Radiologic exam and body structure: US renal; Patient HX: Left stone TECHNIQUE: Imaging protocol: Computed tomography of the abdomen and pelvis without contrast. COMPARISON: CT ABDOMEN PELVIS WO 07/16/2019 12:06 PM FINDINGS: Mediastinum: At least moderate hiatal hernia; it is incompletely imaged on this study. Liver: 10 mm cyst in the left lobe of the liver Hepatic steatosis Gallbladder and bile ducts: Normal. No calcified stones. No ductal dilation. Pancreas: Pancreatic atrophy Spleen: Normal. No splenomegaly. Adrenals: Normal. No mass. Kidneys and ureters: 6.5 cm right renal cyst. Additional smaller right renal cyst 9.4 x 6.4 mm proximal LEFT ureteral calculus causes moderate dilatation of LEFT collecting system and LEFT ureter. No definite movement of the ureteral calculus The LEFT kidney is edematous and there is LEFT perirenal stranding. 7 mm hyperdense nodule left kidney 34 Hounsfield units Stomach and bowel: Diverticulosis of the rectosigmoid. No diverticulitis Appendix: Normal appendix Intraperitoneal space: Unremarkable. No free air. No significant fluid collection. Vasculature: Unremarkable. No abdominal aortic aneurysm. Lymph nodes: Small retroperitoneal nodes Bladder: Unremarkable as visualized. Reproductive: Unremarkable as visualized. Bones/joints: Broad-based disc bulge, facet hypertrophy, and ligament hypertrophy L5/S1 consistent with spinal stenosis. Recommend MRI for further evaluation. Soft tissues: Unremarkable. IMPRESSION: 1. 9.4 x 6.4 mm proximal LEFT ureteral calculus causes moderate dilatation of LEFT collecting system and LEFT ureter. No definite movement of the ureteral calculus The LEFT kidney is edematous and there is LEFT perirenal stranding. 2. Broad-based disc bulge, facet hypertrophy, and ligament hypertrophy L5/S1 consistent with spinal stenosis. Recommend MRI for further evaluation. 3.7 mm hyperdense nodule left kidney 34 Hounsfield units .Recommend MR without and with contrast or CT without and with contrast. MR is preferred for masses under 1.5 cm. Dictated and Authenticated by: Deedee Tinoco MD. Ordering:MONSE Amaya MD
--- NOTE | 2019-07-18 17:17 | DI.VRAD_ITS ---
PROCEDURE INFORMATION: Exam: CT Chest Without Contrast Exam date and time: 07/18/2019 3:50 PM Clinical history: 74 years old, female; Shortness of breath TECHNIQUE: Imaging protocol: Computed tomography of the chest without contrast. COMPARISON: CR XR CHEST 2V PA LATERAL 07/18/2019 1:34 PM FINDINGS: Lungs: Bibasilar atelectasis Pleural space: Unremarkable. No pneumothorax. No pleural effusion. Heart: Coronary artery calcifications may indicate 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 disease Aorta: Unremarkable. No aortic aneurysm. Lymph nodes: Unremarkable. No enlarged lymph nodes. Liver: Hepatic steatosis Stomach and bowel: Most of the stomach is herniated into the chest Bones/joints: Unremarkable. No acute fracture. Soft tissues: Unremarkable. Other findings: Motion artifact degrades images IMPRESSION: No acute process Dictated and Authenticated by: Deedee Tinoco MD. Ordering:MONSE Amaya MD
[2019-07-18] MEDS: Lidocaine 5% Patch 1 PATCH TP (18:26)
[2019-07-18] MEDS: oxyCODONE 5 MG TAB PO (18:28)
[2019-07-18] MEDS: Insulin Aspart 300 UNITS/3 ML PEN SC (18:29)
[2019-07-18] MEDS: Hydrocortisone SOD SUC. 100 MG VIAL 50 MG IVP (18:29)
[2019-07-18] MEDS: Normal Saline Flush 10 ML SYR IVP (18:30)
[2019-07-18] MEDS: Heparin 5,000 UNITS/ML VIAL 5000 UNITS SC (18:34)
[2019-07-18 18:42] LABS: Troponin I < 0.05 ng/mL (0.00-0.06)
[2019-07-18] MEDS: Normal Saline 1,000 ML 125 ML IV (18:48)
[2019-07-18] MEDS: Verapamil 80 MG TAB 40 MG PO (21:27)
[2019-07-18] MEDS: Esomeprazole 40 MG CAPCR PO (21:28)
[2019-07-19] VITALS (9 sets, daily range): BP systolic 127–133; BP diastolic 72–73; PULSE 53–80; RESP 14–20; TEMP 36.3–37.1; O2SAT 96–97
[2019-07-19] MEDS: Heparin 5,000 UNITS/ML VIAL 5000 UNITS SC ×3 (01:31→18:01)
[2019-07-19] MEDS: Normal Saline 1,000 ML 125 ML IV ×3 (01:31→17:08)
[2019-07-19] MEDS: Hydrocortisone SOD SUC. 100 MG VIAL 50 MG IVP ×3 (01:31→18:00)
[2019-07-19] MEDS: Normal Saline Flush 10 ML SYR IVP ×2 (01:32→10:25)
[2019-07-19 06:55] LABS: Abs Immature Grans 0.02 k/cumm (0.0-0.09); Absolute Basophil Count 0.01 k/cumm (0.0-0.2); Absolute Monocyte Count 0.58 k/cumm (0.11-0.7); Basophils % 0.1; HCT 29.6 % (36.0-46.0); HGB 9.7 g/dL (12.0-15.5); Immature Grans % 0.2; Lymphocytes % 6.1; Mean Corp. HGB Concentration 32.8 g/dL (32.0-36.0); Mean Corpuscular Hemoglobin 29.6 pg (27.0-33.0); Mean Corpuscular Volume 90.2 fL (80-95); Monocytes % 5.2; Neutrophils % 88.4; Platelet Count 163 x1000/uL (130-400); RBC 3.28 m/cumm (4.00-5.20); RBC Distribution Width 13.6 % (11.7-14.6); White Blood Cell Count 11.06 k/cumm (4.4-10.8)
[2019-07-19 07:02] LABS: Absolute Lymphocyte Count 0.67 k/cumm (1.2-3.4); Absolute Neutrophil Count 9.78 k/cumm (1.2-6.7)
[2019-07-19 07:09] LABS: Anion Gap 12.1 mmol/L (3-11); BUN 28 mg/dL (7-18); CO2 20.9 mmol/L (21.0-32.0); CREATININE 1.72 mg/dL (0.55-1.02); Calcium 7.8 mg/dL (8.5-10.1); Chloride 103 mmol/L (98-107); Estimated GFR 28.83 (mL/min/1.73m2); Glucose 207 mg/dL (70-100); Magnesium 1.9 mg/dL (1.8-2.4); Potassium 4.2 mmol/L (3.5-5.1); Sodium 136 mmol/L (136-145)
[2019-07-19 07:13] LABS: Troponin I < 0.05 ng/mL (0.00-0.06)
--- NOTE | 2019-07-19 07:30 | DI.US_ITS ---
APPROVED REPORT EXAM: Comprehensive 2D, Doppler, and color-flow Echocardiogram Patient Location: In-Patient Legal Mediator: YING Bermudez (AE) Indications: MODI , H/O CAD ? CHF Left Ventricle The left ventricle is normal. Left ventricular systolic function is normal. The posterior wall thickn ess is normal. The septum is normal. The posterior wall thickness is normal. The septum is normal. Th ere is normal LV segmental wall motion. Tissue Doppler imaging reveals abnormal left ventricular ocasio tolic dysfunction. Transmitral Doppler flow pattern is Grade II-pseudonormal filling dynamics. The le ft atrial pressure is mildly elevated. LVEF is 65-70%. Right Ventricle The right ventricle is normal size. The right ventricular systolic function is normal. Atria The left atrium is mildly enlarged The right atrium size is normal. Aortic Valve The aortic valve is normal in structure. There is no aortic valvular stenosis. No aortic regurgitatio n is present. Mitral Valve Mitral annular calcification is mild. The mitral valve leaflets are thickened. The posterior mitral v alve leaflet is thickened and has decreased mobility There is trivial mitral regurgitation Tricuspid Valve The tricuspid valve is normal in structure. Mild tricuspid regurgitation (TR max 3.01 m/s) The RVSP i s 40-45 mmHg. Pulmonic Valve Not well-visualized Great Vessels The aortic root size is normal. The ascending aorta size is mildly enlarged. There is no flow acceler ation across the arch The IVC is normal in size and collapses >50% with inspiration. Pericardium There is no pericardial effusion. 2D Dimensions IVSd 1.0 cm F: 0.6-1.0 LA Volume Index A2C 31.4 mL/m2 PWd 0.8 cm F: 0.6 - 1.0 LA Volume Index A4C 47.5 mL/m2 LVDd 5.1 cm F: 3.9 - 5.3 LA Area A4C 25.4 cm2 LVDs 2.7 cm F: 2.2 - 3.5 Aortic Root 2.8 cm F: 2.7 - 3.3 Left Atrium 3.8 cm F: 2.7 - 3.8 RA Area A4C 18.4 cm2 LVOT 1.9 cm (M/F) 1.5-2.5 Ascending Aorta 3.5 cm F: 2.3 - 3.1 LVEF (Mont[place]'s) 69.2 % F: 54 - 74 LV Volume 77.9 mL F: 46 - 106 LV Volume Index 41.6 mL/m2 F: 29 - 61 FS 46.3 % LV Diastology E/A Ratio 0.7 MED E' 0.1 (<0.07 m/s) LV E/e MED 13.5 (>14) LAT E' 0.1 (<0.1 m/s) LV E/e LAT 10.9 (>14) Aortic Valve LVOT Peak Charly. 1.1 m/s LVOT Peak Gr. 4.7 mmHg LVOT Mean Gr. 2.2 mmHg LVOT VTI 0.2 m AO VTI 0.4 (0.18-0.25 m) KAMINI (VTI) 0.8 (2.5-4.5 cm2) Mitral Valve MV A Velocity 1.1 (0.4-1.3 m/s) E/A Ratio 0.7 MV Decel. Time 194.3 (160-240 msec) MV PHT 56.3 msec MVA PHT 3.9 cm2 Tricuspid Valve TR P. Velocity 3.0 m/s TR P. Gradient 36.4 mmHg Other Information Study Quality: Good Conclusion Left Ventricle : Left ventricular systolic function is normal. There is normal LV segmental wall mot ion. LVEF is 65-70%. Tissue Doppler imaging reveals abnormal left ventricular diastolic dysfunction. Transmitral Doppler flow pattern is Grade II-pseudonormal filling dynamics. The left atrial pressure is mildly elevated. Atria : The left atrium is mildly enlarged Right Ventricle : The right ventricular systolic function is normal. Mitral Valve : Mitral annular calcification is mild. The mitral valve leaflets are thickened. The pos terior mitral valve leaflet is thickened and has decreased mobility There is trivial mitral regurgita tion Aortic Valve : The aortic valve is normal in structure. No aortic regurgitation is present. Great Vessels : The IVC is normal in size and collapses >50% with inspiration. Tricuspid Valve : Mild tricuspid regurgitation (TR max 3.01 m/s) The RVSP is 40-45 mmHg. Atria : The right atrium size is normal. Right Ventricle : The right ventricle is normal size.
[2019-07-19] MEDS: Calcium Carbonate *TUMS* 500 MG CHEW PO (07:53)
[2019-07-19] MEDS: Ascorbic Acid 500 MG TAB 1000 MG PO (07:54)
[2019-07-19] MEDS: Esomeprazole 40 MG CAPCR PO ×2 (07:54→20:03)
[2019-07-19] MEDS: Verapamil 80 MG TAB 40 MG PO ×3 (07:54→20:03)
[2019-07-19] MEDS: Cholecalciferol (Vitamin D3) 1,000 UNIT TAB 5000 UNITS PO (07:54)
[2019-07-19] MEDS: Aspirin 325 MG TAB PO (07:54)
[2019-07-19] MEDS: Tamsulosin 0.4 MG CAPCR PO (07:54)
[2019-07-19] MEDS: predniSONE 5 MG TAB PO (07:54)
[2019-07-19] MEDS: Insulin Aspart 300 UNITS/3 ML PEN SC ×3 (09:45→17:06)
--- NOTE | 2019-07-19 10:31 | PHARADMIT ---
Addendum entered by Jyoti Hernandez 07/23/19 13:09: Pharmacy Note Subjective Objective VS good, pain 6/10, K+ 4.0, Mag 1.6 repeat blood cultures: no growth x24h Urine culture:<10K Assessment Some oral meds on hold (Ascorbic acid, Tums, Vit D..maybe due to kidney stones) Heparin SC also on hold since 07/20 prior to procedure on 07/21...will alert MD Ram 2gram IV x1 Crestor changed per pt request/MD request to match home dose Plan asked [facility] to restart Heparin SQ, remains on Rocephin day#2 pending culture results Addendum entered by Alannah Castañeda 07/22/19 14:58: Pharmacy Note Subjective Objective BP-174/84 SCr-1.12(down) mag-1.7 Assessment both sets BCs growing gram+ rods; pt started on ceftriaxone (see progress note for more info) hydralazine IVP started PRN for SBP sustained over 180 digoxin held this morning/discontinued due to pts low HR this morning steroids being tapered Plan watch micro for speciation and repeat culture results Addendum entered by Alannah Castañeda 07/21/19 17:00: Pharmacy Note Subjective went down to [facility] today to have stent placed Objective bp-175/91 other VS okay SCr-1.59(up) Assessment no med changes so far today Plan watch for restart of home meds once pt returns/as renal function improves Addendum entered by Alannah Castañeda 07/20/19 14:35: Pharmacy Note Subjective stone still stuck per morning report Objective BP-146/74 other VS okay SCr-1.50(down) BG-232 WBC-8.98(down) Assessment digoxin ordered 0.625 mg po daily to start tomorrow hydrocortisone changed from Q8H to Q12H flonase ordered daily duonebs and levalbuterol cancelled, iv fluids discontinued one blood culture grew gram+ rods, other no growth @ 24 hours Plan possible down and back to have stent placed Original Note: Admission Pharmacy Clinical Review NAPOLEON, NEPHROLITHIASIS Code Status Full Code Current Weight 87.5 kg Renally Cleared and Narrow Therapeutic Index Meds CrCl ~28.6 based on ABW, Digoxin (home med) - order cancelled QTc Value / Action Taken QTc 441 BP Control, Fever BP 131/73, HR 80 Electrolytes reviewed Na 136 (up from 130), K+ 4.2, Mg 1.9 (up from 1.7) DVT Prophylaxis Heparin scheduled q8 Opiate Usage / Scheduled Bowel Regimen Ordered oxycodone 5 prn, yes Plt/SCr for Heparin / Enoxaparin Plt 163, Scr 1.72 (down from 1.89) INR for Warfarin H/H stable, WBC/Bands H/H 9.7/29.6, WBC 11.06 (down from 18.67) -- chronic immunosuppresion Antibiotic appropriateness Received 1 dose of cefepime in the ED but dc'd after negative urinalysis, negative chest xray and CT -- but will monitor closely given leukocytosis Cultures and Sensitivities Negative Surgical ABX d/c within 24 hr DM control / Insulin Dosing Aspart per SS (on humalog and levemir @ home) Heart Failure (Check EF%) (MARGOTH's, B-Block, Diuretics) Verapamil, Lisinopril (held due to NAPOLEON), digoxin (held), nitro prn IV to PO Switch Home Meds Reviewed Digoxin-Verapamil and Digoxin-Aspirin: increased levels of digoxin (dosed appropriately @ 0.065 mg) Home Meds Not Ordered Digoxin, Humira, Levemir, Lisinopril, Metformin Comments NAPOLEON + kidney stone -- will continue fluids, hold lisinopril, and monitor SCr, will repeat scan, if unable to pass stone will need to be transferred (Dr. Solis is off all week)
[2019-07-19] MEDS: Mometasone 220 MCG 14 DOSE INHALER IH (11:34)
[2019-07-19] MEDS: Acetaminophen 325 MG TAB PO (12:47)
[2019-07-19 13:41] LABS: Anion Gap 13.4 mmol/L (3-11); BUN 29 mg/dL (7-18); CO2 19.6 mmol/L (21.0-32.0); CREATININE 1.58 mg/dL (0.55-1.02); Calcium 7.7 mg/dL (8.5-10.1); Chloride 104 mmol/L (98-107); Glucose 274 mg/dL (70-100); Potassium 4.1 mmol/L (3.5-5.1); Sodium 137 mmol/L (136-145)
--- NOTE | 2019-07-19 14:23 | PGE_ITS ---
Date of Service Date of service: 07/19/19 Time of Service: 14:23 Assessment and Plan Assessment and plan (1) NAPOLEON (acute kidney injury): Status: Acute Assessment and plan: NAPOLEON in the setting of an obstructing stone, with a likely component of dehydration as well. - Continue to hold patient's MARGOTH inhibitor. - Continue to hydrate with IVFs, a-candice, and monitor renal function and symptoms. - If creatinine is not improving and stone not passing may require further Urologic intervention. (2) Nephrolithiasis: Status: Chronic Assessment and plan: Plan as above. (3) High anion gap metabolic acidosis: Status: Acute Assessment and plan: Evidence of an elevated anion gap, but with a normal pH ruling out acidosis. Also normal lactate essentially rules out circulatory or respiratory failure, and make sepsis or ischemic bowel unlikely as well. Very likely along with patient's hyponatremia and hypochloremia elevated anion gap represents a combination of dehydration and acute early renal failure. Currently improved, with resolved hyponatremia and hypochloremia. Will monitor renal function and electrolytes carefully. (4) Leukocytosis: Status: Acute Assessment and plan: Evidence of leukocytosis that has worsened, without subjective or objective elevation in temperature. Patient also has a negative urinalysis, negative appearing chest x-ray, and a negative reported CT of the chest. Need to stay very vigilant regarding a potential infection in patient given that she is immunosuppressed chronically, but likely her leukocytosis represents reactive changes along with hemoconcentration and dehydration. Received a dose of cefepime while in the ED, but will hold off on further antibiotics at this time, and monitor clinically. Blood cultures have also been obtained and are still pending. Leukocytosis markedly improved today. (5) Anemia: Status: Chronic Assessment and plan: Mild but definitive drop in hemoglobin in the setting of gross hematuria as well as acute illness. No complaints of GI blood losses other than some hemorrhoidal bleeding that is described as light. Monitor hemoglobin carefully, with expectant drop this morning given overnight hydration. (6) CAD (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 disease): Status: None Assessment and plan: History of PCI to the LAD in 2007. ECG was reported as nonischemic, and ruled out for ACS with serial cardiac biomarkers. She has been complaining of MODI for some time now, and was actually scheduled for a nuclear stress test on the day of admission as an outpatient. ECHO without note of wma's, and with normal LVEF. and plan on repeating stress test once patient is less acutely ill. Continue home regimen of aspirin, high potency statin. Patient is also on verapamil and not on beta-candice therapy. Qualifiers: Coronary Disease-Associated Artery/Lesion type: mohegan artery [place] vs. transplanted heart: mohegan heart Associated angina: without angina Qualified Code(s): I25.10 - Atherosclerotic heart disease of mohegan 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 without angina pectoris (7) PSVT (paroxysmal supraventricular tachycardia): Status: None Assessment and plan: History of PSVT's, for which the patient has been maintained on verapamil and digoxin. According to cardiology notes she has refused to come off of digoxin in the past. Dig levels in the past have ranged in the 0.3-0.4 range mostly, but given evidence of acute renal insufficiency repeat level was checked and still low, albeit higher than her baseline at 0.69. Will continue to maintain patient on telemetry overnight, and repeats renal panel in the morning. If renal function is improving, consider restarting digoxin. (8) Diabetes mellitus: Status: Chronic Assessment and plan: Hold minimal home dosing of basal insulin, and hold metformin as well while hospitalized and especially given acute kidney injury. Will maintain on a sliding scale coverage, and ensure ADA diet. (9) DVT prophylaxis: Status: Acute Assessment and plan: SC heparin. 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 Mrs. Kong has a Past Medical History significant for CAD s/p PCI to LAD in 2007, PSVT's maintained on digoxin and verapamil, HTN, KALEY on BiPAP therapy, GERD, IBS, anxiety, and DM. She has a history of Psoriatec Arthritis for which she is on chronic therapy with low-dose daily prednisone and weekly injections of Humira. Patient began experiencing dyspnea on exertion a few weeks ago, and was seen by her cyber systems administrator recently who scheduled a stress tests for further evaluation of this complaint. The patient presented to the ED 2 days ago with reported continued dyspnea on exertion, but with new onset of left flank pain and worsening lower abdominal pain. While she admitted to constipation, her imaging with CT of the abdomen and pelvis showed evidence of a 0.5 X 1 cm left- sided ureteropelvic junction stone with moderate associated hydronephrosis. At that time she also had mild NAPOLEON, mild leukocytosis with no evidence of UTI. Her CXR was unremarkable. Following hydration and medications she felt improved and requested to return home - follow-up was arranged with Urology, who unfortunately is not available this week. Mrs. Kong returned to the ED earlier on the afternoon of admission with complaints of continued dyspnea, continued flank pain, with onset of nausea and vomiting at home on the day prior to her presentation. She also admitted to poor oral intake. Initial lab work was significant for worsening leukocytosis, worsening anemia, worsening NAPOLEON with a creatinine of 1.89, and evidence of hyponatremia, hypochloremia, low bicarb and an elevated anion gap. Her urinalysis continued to be negative for infection, and her lactate was normal. A VBG was checked with a pH that was normal at 7.39. Troponin was in the normal range at 0.06, with an ECG that was not acutely ischemic - she has since ruled out with serial cardiac biomarkers. D-dimer was grossly elevated. The patient was at that time evaluated further with a renal ultrasound that showed continued left-sided hydronephrosis, but the stone was not visualized secondary to abdominal gas. CT of the chest was also procured without contrast, and negative for any acute findings. A repeat CT with stone protocol showed a 1cm proximal left ureteral calculus causing moderate hydro, with mild distal migration since last exam. Since her admission the patient's renal function has improved, although not normalized. Her leukocytosis and anion gap are better as well, although both still mildly elevated. She continues to experience left flank pain and poor oral intake, but is stable. No overnight events reported. Remains afebrile. Exam Narrative Exam Narrative: General: Patient appears comfortable, AAOX3, NAD HEENT: Previously dry MM, now normal Neck: Supple CV: Regular, no longer tachycardic, S1S2, No rubs, murmurs, or gallops. Pulmonary: Clear to auscultation bilaterally, no crackles, wheezing, or rhonchi Abdomen: + Bowel Sounds, soft, nontender, nondistended Vascular: No lower extremity edema Psych: Normal mood and affect. Objective Objective Clinical Data: Abnormal lab results 0907/18/19 07/18/19 Range/Units 13:10 13:10 15:06 WBC (4.4-10.8) k/cumm RBC (4.00-5.20) m/cumm Hgb (12.0-15.5) g/dL Hct (36.0-46.0) % Absolute Neutrophils (1.2-6.7) k/cumm Absolute Lymphocytes (1.2-3.4) k/cumm VBG pCO2 33 L (34-47) mm/Hg VBG HCO3 20 L (22-28) mmol/L VBG Total CO2 19 L (22-29) mmol/L Carbon Dioxide (21.0-32.0) mmol/L Anion Gap (3-11) mmol/L BUN (7-18) mg/dL Creatinine (0.55-1.02) mg/dL Glucose (70-100) mg/dL Calcium (8.5-10.1) mg/dL NT-Pro-B Natriuret Pep 899 H ( - 299) pg/mL Digoxin 0.69 L (0.90-2.00) ng/mL 07/19/19 07/19/19 07/19/19 Range/Units 06:15 06:15 11:58 WBC 11.06 H D (4.4-10.8) k/cumm RBC 3.28 L (4.00-5.20) m/cumm Hgb 9.7 L (12.0-15.5) g/dL Hct 29.6 L (36.0-46.0) % Absolute Neutrophils 9.78 H (1.2-6.7) k/cumm Absolute Lymphocytes 0.67 L (1.2-3.4) k/cumm VBG pCO2 (34-47) mm/Hg VBG HCO3 (22-28) mmol/L VBG Total CO2 (22-29) mmol/L Carbon Dioxide 20.9 L 19.6 L (21.0-32.0) mmol/L Anion Gap 12.1 H 13.4 H (3-11) mmol/L BUN 28 H 29 H (7-18) mg/dL Creatinine 1.72 H 1.58 H (0.55-1.02) mg/dL Glucose 207 H 274 H (70-100) mg/dL Calcium 7.8 L 7.7 L (8.5-10.1) mg/dL NT-Pro-B Natriuret Pep ( - 299) pg/mL Digoxin (0.90-2.00) ng/mL Vital Signs Temperature 37.1 C 07/19/19 12:18 Temperature Source Skin 07/19/19 12:18 Pulse 78 07/19/19 12:18 Pulse Rhythm Regular 07/18/19 21:10 Pulse Strength Normal 07/18/19 16:16 Pulse 88 07/18/19 17:01 Respiratory Rate 20 07/19/19 12:18 Respiratory Effort Non-Labored 07/19/19 01:30 Respiratory Depth Normal 07/19/19 01:30 Respiratory Pattern Normal 07/19/19 01:30 Blood Pressure 133/72 07/19/19 12:18 Blood Pressure Mean 71 07/18/19 17:01 Pulse Oximetry 96 07/19/19 12:18 Oxygen Delivery Method Room Air 07/19/19 12:18 Oxygen Flow Rate 0 07/19/19 12:18 Pain Level 6 07/19/19 12:47 Comment 07/19/19 12:18 Intake & Output 07/18/19 07/19/19 07/19/19 23:59 11:59 23:59 Intake Total 1660 / 1660 2026.666 / 2026.666 Balance 1660 / 1660 2026.666 / 2025.666 Weight 86.636 kg 87.5 kg Intake: IV 1420 / 1420 1826.666 / 1826.666 Oral 240 / 240 200 / 200 Other: Urine Appearance Clear Urine Odor Normal Comment mixed with stool- cannot strain. approx 300 ml Stool Size Large Small Stool Characteristics Formed Soft Formed Voiding Methods Bedside Commode Laboratory Results WBC 11.06 k/cumm (4.4-10.8) H D 07/19/19 06:15 RBC 3.28 m/cumm (4.00-5.20) L 07/19/19 06:15 Hgb 9.7 g/dL (12.0-15.5) L 07/19/19 06:15 Hct 29.6 % (36.0-46.0) L 07/19/19 06:15 MCV 90.2 fL (80-95) 07/19/19 06:15 MCH 29.6 pg (27.0-33.0) 07/19/19 06:15 MCHC 32.8 g/dL (32.0-36.0) 07/19/19 06:15 RDW 13.6 % (11.7-14.6) 07/19/19 06:15 Plt Count 163 x1000/uL (130-400) 07/19/19 06:15 MPV 11.0 fL (8.0-11.0) 07/19/19 06:15 Immature Gran % 0.2 07/19/19 06:15 Neutrophils % 88.4 07/19/19 06:15 Lymphocytes % 6.1 07/19/19 06:15 Monocytes % 5.2 07/19/19 06:15 Eosinophils % 0.0 07/19/19 06:15 Basophils % 0.1 07/19/19 06:15 Absolute Neutrophils 9.78 k/cumm (1.2-6.7) H 07/19/19 06:15 Absolute Lymphocytes 0.67 k/cumm (1.2-3.4) L 07/19/19 06:15 Absolute Monocytes 0.58 k/cumm (0.11-0.7) 07/19/19 06:15 Absolute Eosinophils 0.00 k/cumm (0.0-0.7) 07/19/19 06:15 Absolute Basophils 0.01 k/cumm (0.0-0.2) 07/19/19 06:15 PT 10.9 sec (9.3-11.0) 07/18/19 13:10 INR 1.1 (0.9-1.1) 07/18/19 13:10 APTT 28.9 sec (21.0-31.4) 07/18/19 13:10 D-Dimer > 7500 ng/mlFEU (<500) H 07/18/19 13:10 Sample Site Cancelled 07/18/19 15:07 pCO2 Cancelled 07/18/19 15:07 pO2 Cancelled 07/18/19 15:07 O2 Saturation Cancelled 07/18/19 15:07 ABG pH Cancelled 07/18/19 15:07 ABG HCO3 Cancelled 07/18/19 15:07 ABG Total CO2 Cancelled 07/18/19 15:07 ABG Base Excess Cancelled 07/18/19 15:07 VBG pH 7.39 (7.32-7.43) 07/18/19 15:06 VBG pCO2 33 mm/Hg (34-47) L 07/18/19 15:06 VBG pO2 42 mm/Hg (28-44) 07/18/19 15:06 VBG HCO3 20 mmol/L (22-28) L 07/18/19 15:06 VBG Total CO2 19 mmol/L (22-29) L 07/18/19 15:06 VBG O2 Saturation 76 % (70-80) 07/18/19 15:06 VBG Base Excess mmol/L (-3-3) 07/18/19 15:06 Oxygen Liter Flow Cancelled 07/18/19 15:07 FiO2 Cancelled 07/18/19 15:07 Sodium 137 mmol/L (136-145) 07/19/19 11:58 Potassium 4.1 mmol/L (3.5-5.1) 07/19/19 11:58 Chloride 104 mmol/L (98-107) 07/19/19 11:58 Carbon Dioxide 19.6 mmol/L (21.0-32.0) L 07/19/19 11:58 Anion Gap 13.4 mmol/L (3-11) H 07/19/19 11:58 BUN 29 mg/dL (7-18) H 07/19/19 11:58 Creatinine 1.58 mg/dL (0.55-1.02) H 07/19/19 11:58 Estimated GFR/1.73 m2 31.80 (mL/min/1.73m2) 07/19/19 11:58 Glucose 274 mg/dL (70-100) H 07/19/19 11:58 Lactate 1.1 mmol/L (0.6-1.4) 07/18/19 14:33 Calcium 7.7 mg/dL (8.5-10.1) L 07/19/19 11:58 Magnesium 1.9 mg/dL (1.8-2.4) 07/19/19 06:15 Total Bilirubin 0.5 mg/dL (0.2-1.0) 07/18/19 13:10 AST 31 U/L (15-37) 07/18/19 13:10 ALT 31 U/L (14-59) 07/18/19 13:10 Alkaline Phosphatase 66 U/L (46-116) 07/18/19 13:10 Troponin I < 0.05 ng/mL (0.00-0.06) 07/19/19 06:15 NT-Pro-B Natriuret Pep 899 pg/mL (-299) H 07/18/19 13:10 Total Protein 7.0 g/dL (6.4-8.2) 07/18/19 13:10 Albumin 2.8 g/dL (3.4-5.0) L 07/18/19 13:10 Urine Color Yellow (Yellow) 07/18/19 12:25 Urine Clarity Sl cloudy (Clear) 07/18/19 12:25 Urine pH 5.5 (5-8) 07/18/19 12:25 Ur Specific [place] 1.020 (1.005-1.025) 07/18/19 12:25 Urine Protein 30 mg/dL (Negative) H 07/18/19 12:25 Urine Ketones 40 mg/dL (Negative) H 07/18/19 12:25 Urine Blood Moderate (Negative) H 07/18/19 12:25 Urine Nitrite Negative (Negative) 07/18/19 12:25 Urine Bilirubin Moderate (Negative) H 07/18/19 12:25 Urine Urobilinogen 0.2 EU/dL (Up TO 0.2) 07/18/19 12:25 Ur Leukocyte Esterase Negative (Negative) 07/18/19 12:25 Urine RBC 5-10 (0-2) H 07/18/19 12:25 Urine WBC 3-5 HPF (0-5) 07/18/19 12:25 Ur Epithelial Cells Moderate HPF (Negative) 07/18/19 12:25 Urine Crystals Few amorphous HPF (Negative) 07/18/19 12:25 Urine Bacteria Few HPF (Negative) 07/18/19 12:25 Urine Casts 5-10 coarse granular LPF (Negative) 07/18/19 12:25 Urine Mucus Negative (Negative) 07/18/19 12:25 Urine Other (Negative) 07/18/19 12:25 Ur Culture Indicated? No 07/18/19 12:25 Urine Glucose Negative mg/dL (Negative) 07/18/19 12:25 Digoxin 0.69 ng/mL (0.90-2.00) L 07/18/19 13:10
--- NOTE | 2019-07-19 14:38 | CHAPLAIN ---
Sandra was sitting in a chair when visiting with her daughter and daughter's fiance. Sandra talked about coming to the ED over the weekend and then again yesterday. She as found to have a kidney stone and she said her kidney's are failing. She said she was told there are few things going on with her. She is waiting to hear more from the hospitalist. I visited Sandra a second time today, but she hadn't heard anything yet from the hospitalist, although both Sandra and her daughter said they liked Dr. Allen and appreciated how he has explained things so far. Sandra met him in the ED yesterday. She asked me to say prayers for her. I will continue to visit.
[2019-07-19] MEDS: oxyCODONE 5 MG TAB PO (15:51)
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
[2019-07-19] MEDS: Mometasone 220 MCG 14 DOSE INHALER 2 PUFF IH (20:00)
[2019-07-19] MEDS: Rosuvastatin 5 MG TAB PO (20:04)
[2019-07-20] VITALS (12 sets, daily range): BP systolic 126–165; BP diastolic 64–82; PULSE 46–73; RESP 14–20; TEMP 35.9–37; O2SAT 96–98
[2019-07-20] MEDS: Normal Saline 1,000 ML 125 ML IV (00:45)
[2019-07-20] MEDS: Hydrocortisone SOD SUC. 100 MG VIAL 50 MG IVP ×3 (01:57→21:57)
[2019-07-20] MEDS: Heparin 5,000 UNITS/ML VIAL 5000 UNITS SC ×2 (01:59→11:19)
[2019-07-20 07:18] LABS: Abs Immature Grans 0.02 k/cumm (0.0-0.09); Absolute Basophil Count 0.01 k/cumm (0.0-0.2); Absolute Eosinophil Count 0.01 k/cumm (0.0-0.7); Absolute Monocyte Count 0.63 k/cumm (0.11-0.7); Absolute Neutrophil Count 7.41 k/cumm (1.2-6.7); Basophils % 0.1; Eosinophils % 0.1; HCT 28.3 % (36.0-46.0); Immature Grans % 0.2; Mean Corp. HGB Concentration 31.8 g/dL (32.0-36.0); Mean Corpuscular Hemoglobin 28.9 pg (27.0-33.0); Mean Platelet Volume 11.5 fL (8.0-11.0); Neutrophils % 82.6; Platelet Count 173 x1000/uL (130-400); RBC 3.11 m/cumm (4.00-5.20); RBC Distribution Width 13.6 % (11.7-14.6); White Blood Cell Count 8.98 k/cumm (4.4-10.8)
[2019-07-20 07:31] LABS: BUN 30 mg/dL (7-18); Calcium 7.8 mg/dL (8.5-10.1); Chloride 107 mmol/L (98-107); Estimated GFR 33.76 (mL/min/1.73m2); Glucose 232 mg/dL (70-100); Potassium 4.3 mmol/L (3.5-5.1); Sodium 138 mmol/L (136-145)
--- NOTE | 2019-07-20 07:49 | W.INDIABCONS ---
Date of service: 07/20/19 Time of Service: 07:49 Diabetes Inpatient Consult DESCRIPTION/ASSESSMENT: Appreciate diabetes consult for Francisca Kong who is hospitalized with heart concern. She is well known to outpatient diabetes self management as she wears a Dexcom 5 continuous glucose monitor. Francisca tracks her food and blood sugars daily. She takes 12u Detemir twice daily and mealtime insulin starting at 3 units up to 10 units for food and correcting 1 unit every 15 mg/dl above 165mg/dl. This hospitalization Francisca receives sensitive insulin correction without the 24units basal insulin eating 20-60 grams carbohydrate at recorded meals. Blood sugars primarily in 200s up to 284mg/dl. Brief visit with Francisca who is concerned about her hyperglycemia after such careful tracking at home. INTERVENTION: Provided RN with insulin dosing scale Fracnisca uses at home. Suggest adding basal insulin initially. Francisca has ongoing self management support and will follow up after discharge. PLAN: Will follow blood sugars and follow up as Francisca desires Suggest her basal insulin at 12units Detemir twice daily. Time Spent in Nutritional Counseling and Treatment: 3 minuts face to face
[2019-07-20] MEDS: Mometasone 220 MCG 14 DOSE INHALER 2 PUFF IH ×2 (08:05→20:08)
[2019-07-20 08:11] LABS: Anisocytosis 1+; Diff Comment RBC Morph Reviewed
[2019-07-20 08:12] LABS: Hypochromasia 1+; Polychromasia Present
[2019-07-20] MEDS: Cholecalciferol (Vitamin D3) 1,000 UNIT TAB 5000 UNITS PO (08:17)
[2019-07-20] MEDS: Esomeprazole 40 MG CAPCR PO ×2 (08:17→20:03)
[2019-07-20] MEDS: Verapamil 80 MG TAB 40 MG PO ×3 (08:17→20:02)
[2019-07-20] MEDS: Calcium Carbonate *TUMS* 500 MG CHEW PO (08:18)
[2019-07-20] MEDS: predniSONE 5 MG TAB PO (08:18)
[2019-07-20] MEDS: Ascorbic Acid 500 MG TAB 1000 MG PO (08:19)
[2019-07-20] MEDS: Aspirin 325 MG TAB PO (08:19)
[2019-07-20] MEDS: Tamsulosin 0.4 MG CAPCR PO (08:19)
[2019-07-20] MEDS: Insulin Aspart 300 UNITS/3 ML PEN SC ×3 (08:19→17:11)
--- NOTE | 2019-07-20 10:56 | CMPROGNOTE_ITS ---
Care Management Progress Note S/O: Francisca will have a down and back appointment to [facility] [place] for Urology consult-per likely tomorrow. She was sitting in her chair, readying to work with PT when CM entered her room. She remains pleasant in interaction. She provided copy of MCR card as she reported Alexsandra in Specialties requested a copy. (information was on file). CM continues to follow. A: 74 year old female admitted to [facility] 07/18/19 for NAPOLEON, Nephrolithiasis, MODI P: Per , Francisca will have a down and back appointment at [facility] [place] (likely tomorrow) for Urology consult due to unavailability at [facility] this week, CM continues to follow.
--- NOTE | 2019-07-20 10:56 | PDOC.CMPRO ---
Care Management Progress Note S/O: Francisca will have a down and back appointment to [facility] [place] for Urology consult-per likely tomorrow. She was sitting in her chair, readying to work with PT when CM entered her room. She remains pleasant in interaction. She provided copy of MCR card as she reported Alexsadnra in Specialties requested a copy. (information was on file). CM continues to follow. A: 74 year old female admitted to [facility] 07/18/19 for NAPOLEON, Nephrolithiasis, MODI P: Per , Francisca will have a down and back appointment at [facility] [place] (likely tomorrow) for Urology consult due to unavailability at [facility] this week, CM continues to follow.
[2019-07-20] MEDS: Fluticasone NASAL SPRAY 16 GM BTL NS (11:18)
[2019-07-20] MEDS: Acetaminophen 325 MG TAB PO ×2 (11:19→22:17)
[2019-07-20] MEDS: oxyCODONE 5 MG TAB PO ×2 (11:19→22:16)
--- NOTE | 2019-07-20 13:38 | PGE_ITS ---
Date of Service Date of service: 07/20/19 Time of Service: 13:38 Assessment and Plan Assessment and plan (1) NAPOLEON (acute kidney injury): Status: Acute Assessment and plan: NAPOLEON in the setting of an obstructing stone, with a likely component of dehydration as well. - Continue to hold patient's MARGOTH inhibitor, avoid nephrotoxins, and renally dose medications when needed.. - Patient has been hydrated with IVFs, with creatinine improved but still above baseline and unchanged, and with moderate left sided hydronephrosis. Hold IVFs. - Will require intervention for stone with stent placement - accepted in down and back transfer [place] [facility]. Will maintain NPO after midnight, continue a-candice for now. (2) Nephrolithiasis: Status: Chronic Assessment and plan: Plan as above. (3) High anion gap metabolic acidosis: Status: Acute Assessment and plan: Likely combination of dehydration and acute early renal failure. Resolved. (4) Leukocytosis: Status: Acute Assessment and plan: Evidence of leukocytosis that has worsened, without subjective or objective elevation in temperature. Patient also has a negative urinalysis, negative appearing chest x-ray, and a negative reported CT of the chest. Need to stay very vigilant regarding a potential infection in patient given that she is immunosuppressed chronically, but likely her leukocytosis represents reactive changes along with hemoconcentration and dehydration. Received a dose of cefepime while in the ED, but held off on further antibiotics. Blood cultures with growth in one set only in anaerobic bottle, may be contaminant. Leukocytosis has resolved - likely reactive. (5) Anemia: Status: Chronic Assessment and plan: Mild but definitive drop in hemoglobin in the setting of gross hematuria as well as acute illness. No complaints of GI blood losses other than some hemorrhoidal bleeding that is described as light. Monitor hemoglobin carefully, with expectant drop this morning again given overnight hydration. (6) CAD (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 disease): Status: None Assessment and plan: History of PCI to the LAD in 2007. ECG was reported as nonischemic, and ruled out for ACS with serial cardiac biomarkers. - Please note that patient has been complaining of MODI for some time now, and was actually scheduled for a nuclear stress test on the day of admission as an outpatient. EKG Non-ischemic, troponins undetectable, ECHO without note of wma's, and with normal LVEF (Noted Diastolic Dysfunction only). CT without acute pathology. Patient has a history of Asthma, but with clear air entry and no wheezing on exam. Also not hypoxic. Plan on repeating stress test once patient is less acutely ill, but doubt ACS. Patient should be able to undergo a low risk procedure without need for further cardiac intervention or testing. Continue home regimen of aspirin, high potency statin. Patient is also on verapamil and not on beta-candice therapy. Qualifiers: Associated angina: without angina Coronary Disease-Associated Artery/Lesion type: [place] artery [place] vs. transplanted heart: [place] heart Qualified Code(s): I25.10 - Atherosclerotic heart disease of [place] 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 without angina pectoris (7) PSVT (paroxysmal supraventricular tachycardia): Status: None Assessment and plan: History of PSVT's, for which the patient has been maintained on verapamil and digoxin. According to cardiology notes she has refused to come off of digoxin in the past. Dig levels in the past have ranged in the 0.3-0.4 range mostly, but given evidence of acute renal insufficiency r epeat level was checked and still low, albeit higher than her baseline at 0.69. Given improved creatinine will reinitiate Dig. Continue to monitor renal function. (8) Diabetes mellitus: Status: Chronic Assessment and plan: Hold minimal home dosing of basal insulin, and hold metformin as well while hospitalized and especially given acute kidney injury. Will maintain on a sliding scale coverage, and ensure ADA diet. (9) DVT prophylaxis: Status: Acute Assessment and plan: SC heparin. 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 Mrs. Kong has a Past Medical History significant for CAD s/p PCI to LAD in 2007, PSVT's maintained on digoxin and verapamil, HTN, KALEY on BiPAP therapy, GERD, IBS, anxiety, and DM. She has a history of Psoriatec Arthritis for which she is on chronic therapy with low-dose daily prednisone and weekly injections of Humira. Patient began experiencing dyspnea on exertion a few weeks ago, and was seen by her web marketing assistant recently who scheduled a stress tests for further evaluation of this complaint. The patient presented to the ED 2 days ago with reported continued dyspnea on exertion, but with new onset of left flank pain and worsening lower abdominal pain. While she admitted to constipation, her imaging with CT of the abdomen and pelvis showed evidence of a 0.5 X 1 cm left- sided ureteropelvic junction stone with moderate associated hydronephrosis. At that time she also had mild NAPOLEON, mild leukocytosis with no evidence of UTI. Her CXR was unremarkable. Following hydration and medications she felt improved and requested to return home - follow-up was arranged with Urology, who unfortunately is not available this week. Mrs. Kong returned to the ED earlier on the afternoon of admission with complaints of continued dyspnea, continued flank pain, with onset of nausea and vomiting at home on the day prior to her presentation. She also admitted to poor oral intake. Initial lab work was significant for worsening leukocytosis, worsening anemia, worsening NAPOLEON with a creatinine of 1.89, and evidence of hyponatremia, hypochloremia, low bicarb and an elevated anion gap. Her urinalysis continued to be negative for infection, and her lactate was normal. A VBG was checked with a pH that was normal at 7.39. Troponin was in the normal range at 0.06, with an ECG that was not acutely ischemic - she has since ruled out with serial cardiac biomarkers. D-dimer was grossly elevated. The patient was at that time evaluated further with a renal ultrasound that showed continued left-sided hydronephrosis, but the stone was not visualized secondary to abdominal gas. CT of the chest was also procured without contrast, and negative for any acute findings. A repeat CT with stone protocol showed a 1cm proximal left ureteral calculus causing moderate hydro, with mild distal migration since last exam. Since her admission the patient's renal function has improved, although not normalized and now unchanged since yesterday. Her leukocytosis and anion gap have both resolved. She continues to experience left flank pain and poor oral intake, but is stable. Discussed case with Urology, and she has been accepted in transfer for stent placement. No overnight events reported. Remains afebrile. Exam Narrative Exam Narrative: General: Patient appears comfortable, AAOX3, NAD HEENT: Previously dry MM, now normal Neck: Supple CV: Regular, no longer tachycardic, S1S2, No rubs, murmurs, or gallops. Pulmonary: Clear to auscultation bilaterally, no crackles, wheezing, or rhonchi Abdomen: + Bowel Sounds, soft, nontender, nondistended Vascular: No lower extremity edema Psych: Normal mood and affect. Objective Objective Clinical Data: Abnormal lab results 07/19/19 07/20/19 07/20/19 Range/Units 11:58 06:18 06:18 RBC 3.11 L (4.00-5.20) m/cumm Hgb 9.0 L (12.0-15.5) g/dL Hct 28.3 L (36.0-46.0) % MCHC 31.8 L (32.0-36.0) g/dL MPV 11.5 H (8.0-11.0) fL Absolute Neutrophils 7.41 H (1.2-6.7) k/cumm Absolute Lymphocytes 0.90 L (1.2-3.4) k/cumm Carbon Dioxide 19.6 L (21.0-32.0) mmol/L Anion Gap 13.4 H (3-11) mmol/L BUN 29 H 30 H (7-18) mg/dL Creatinine 1.58 H 1.50 H (0.55-1.02) mg/dL Glucose 274 H 232 H (70-100) mg/dL Calcium 7.7 L 7.8 L (8.5-10.1) mg/dL Vital Signs Temperature 37.0 C 07/20/19 11:51 Temperature Source Skin 07/20/19 11:51 Pulse 66 07/20/19 11:51 Pulse Rhythm Regular 07/20/19 04:04 Pulse Strength Normal 07/18/19 16:16 Pulse 88 07/18/19 17:01 Respiratory Rate 16 07/20/19 11:51 Respiratory Effort Non-Labored 07/20/19 04:04 Respiratory Depth Normal 07/20/19 04:04 Respiratory Pattern Normal 07/20/19 04:04 Blood Pressure 146/74 H 07/20/19 11:51 Blood Pressure Mean 71 07/18/19 17:01 Pulse Oximetry 98 07/20/19 11:51 Oxygen Delivery Method Room Air 07/20/19 11:51 Oxygen Flow Rate 0 07/20/19 11:51 Fraction of Inspired Oxygen (FIO2) 21 07/20/19 08:09 Pain Level 6 07/20/19 11:51 Comment 07/19/19 12:18 Intake & Output 07/19/19 07/20/19 07/20/19 23:59 11:59 23:59 Intake Total 2430 / 4456.666 1952.083 / 2392.083 440 / 2392.083 Output Total 650 / 650 Balance 2430 / 4456.666 1302.083 / 1742.083 440 / 1742.083 Weight 89.1 kg Intake: IV 1950 / 3776.666 1951.08 / 083 40 / 1991.08 Oral 480 / 680 400 / 400 Output: Urine 650 / 650 Other: Urine Color Yellow Urine Appearance Clear Clear Urine Odor Normal Normal Comment mixed with stool. pt also noted to have incontinent edwin pad which was changed; moderate to heavy urine pt voided in toilet when having bowel movement. pt requested hat be removed from toilet to have bm. unable to strain urine at this time Stool Size Large Moderate Stool Characteristics Soft Soft Formed Formed Brown Voiding Methods Toilet Bedside Commode Toilet Laboratory Results WBC 8.98 k/cumm (4.4-10.8) 07/20/19 06:18 RBC 3.11 m/cumm (4.00-5.20) L 07/20/19 06:18 Hgb 9.0 g/dL (12.0-15.5) L 07/20/19 06:18 Hct 28.3 % (36.0-46.0) L 07/20/19 06:18 MCV 91.0 fL (80-95) 07/20/19 06:18 MCH 28.9 pg (27.0-33.0) 07/20/19 06:18 MCHC 31.8 g/dL (32.0-36.0) L 07/20/19 06:18 RDW 13.6 % (11.7-14.6) 07/20/19 06:18 Plt Count 173 x1000/uL (130-400) 07/20/19 06:18 MPV 11.5 fL (8.0-11.0) H 07/20/19 06:18 Immature Gran % 0.2 07/20/19 06:18 Neutrophils % 82.6 07/20/19 06:18 Lymphocytes % 10.0 07/20/19 06:18 Monocytes % 7.0 07/20/19 06:18 Eosinophils % 0.1 07/20/19 06:18 Basophils % 0.1 07/20/19 06:18 Absolute Neutrophils 7.41 k/cumm (1.2-6.7) H 07/20/19 06:18 Absolute Lymphocytes 0.90 k/cumm (1.2-3.4) L 07/20/19 06:18 Absolute Monocytes 0.63 k/cumm (0.11-0.7) 07/20/19 06:18 Absolute Eosinophils 0.01 k/cumm (0.0-0.7) 07/20/19 06:18 Absolute Basophils 0.01 k/cumm (0.0-0.2) 07/20/19 06:18 Differential Comment Rbc morph reviewed 07/20/19 06:18 RBC Morphology See below 07/20/19 06:18 Polychromasia Present 07/20/19 06:18 Hypochromasia 1+ 07/20/19 06:18 Anisocytosis 1+ 07/20/19 06:18 PT 10.9 sec (9.3-11.0) 07/18/19 13:10 INR 1.1 (0.9-1.1) 07/18/19 13:10 APTT 28.9 sec (21.0-31.4) 07/18/19 13:10 D-Dimer > 7500 ng/mlFEU (<500) H 07/18/19 13:10 Sample Site Cancelled 07/18/19 15:07 pCO2 Cancelled 07/18/19 15:07 pO2 Cancelled 07/18/19 15:07 O2 Saturation Cancelled 07/18/19 15:07 ABG pH Cancelled 07/18/19 15:07 ABG HCO3 Cancelled 07/18/19 15:07 ABG Total CO2 Cancelled 07/18/19 15:07 ABG Base Excess Cancelled 07/18/19 15:07 VBG pH 7.39 (7.32-7.43) 07/18/19 15:06 VBG pCO2 33 mm/Hg (34-47) L 07/18/19 15:06 VBG pO2 42 mm/Hg (28-44) 07/18/19 15:06 VBG HCO3 20 mmol/L (22-28) L 07/18/19 15:06 VBG Total CO2 19 mmol/L (22-29) L 07/18/19 15:06 VBG O2 Saturation 76 % (70-80) 07/18/19 15:06 VBG Base Excess mmol/L (-3-3) 07/18/19 15:06 Oxygen Liter Flow Cancelled 07/18/19 15:07 FiO2 Cancelled 07/18/19 15:07 Sodium 138 mmol/L (136-145) 07/20/19 06:18 Potassium 4.3 mmol/L (3.5-5.1) 07/20/19 06:18 Chloride 107 mmol/L (98-107) 07/20/19 06:18 Carbon Dioxide 22.0 mmol/L (21.0-32.0) 07/20/19 06:18 Anion Gap 9.0 mmol/L (3-11) 07/20/19 06:18 BUN 30 mg/dL (7-18) H 07/20/19 06:18 Creatinine 1.50 mg/dL (0.55-1.02) H 07/20/19 06:18 Estimated GFR/1.73 m2 33.76 (mL/min/1.73m2) 07/20/19 06:18 Glucose 232 mg/dL (70-100) H 07/20/19 06:18 POC Glucose Cancelled 07/18/19 15:57 Lactate 1.1 mmol/L (0.6-1.4) 07/18/19 14:33 Calcium 7.8 mg/dL (8.5-10.1) L 07/20/19 06:18 Magnesium 2.0 mg/dL (1.8-2.4) 07/20/19 06:18 Total Bilirubin 0.5 mg/dL (0.2-1.0) 07/18/19 13:10 AST 31 U/L (15-37) 07/18/19 13:10 ALT 31 U/L (14-59) 07/18/19 13:10 Alkaline Phosphatase 66 U/L (46-116) 07/18/19 13:10 Troponin I < 0.05 ng/mL (0.00-0.06) 07/19/19 06:15 NT-Pro-B Natriuret Pep 899 pg/mL (-299) H 07/18/19 13:10 Total Protein 7.0 g/dL (6.4-8.2) 07/18/19 13:10 Albumin 2.8 g/dL (3.4-5.0) L 07/18/19 13:10 Urine Color Yellow (Yellow) 07/18/19 12:25 Urine Clarity Sl cloudy (Clear) 07/18/19 12:25 Urine pH 5.5 (5-8) 07/18/19 12:25 Ur Specific [place] 1.020 (1.005-1.025) 07/18/19 12:25 Urine Protein 30 mg/dL (Negative) H 07/18/19 12:25 Urine Ketones 40 mg/dL (Negative) H 07/18/19 12:25 Urine Blood Moderate (Negative) H 07/18/19 12:25 Urine Nitrite Negative (Negative) 07/18/19 12:25 Urine Bilirubin Moderate (Negative) H 07/18/19 12:25 Urine Urobilinogen 0.2 EU/dL (Up TO 0.2) 07/18/19 12:25 Ur Leukocyte Esterase Negative (Negative) 07/18/19 12:25 Urine RBC 5-10 (0-2) H 07/18/19 12:25 Urine WBC 3-5 HPF (0-5) 07/18/19 12:25 Ur Epithelial Cells Moderate HPF (Negative) 07/18/19 12:25 Urine Crystals Few amorphous HPF (Negative) 07/18/19 12:25 Urine Bacteria Few HPF (Negative) 07/18/19 12:25 Urine Casts 5-10 coarse granular LPF (Negative) 07/18/19 12:25 Urine Mucus Negative (Negative) 07/18/19 12:25 Urine Other (Negative) 07/18/19 12:25 Ur Culture Indicated? No 07/18/19 12:25 Urine Glucose Negative mg/dL (Negative) 07/18/19 12:25 Digoxin 0.69 ng/mL (0.90-2.00) L 07/18/19 13:10
--- NOTE | 2019-07-20 16:13 | CHAPLAIN ---
Francisca said she will be going to [facility] for an appointment tomorrow and returning here. She is dealing with multiple health issues, and said today that she learned the bottom of her heart isn't beating correctly. Her daughters have been in to visit her. She is a member of the [employer] and asked me to contact the international trade analyst there. He is new from a couple of months ago, and hasn't met Francisca yet, but said he will be in later today to visit.
[2019-07-20] MEDS: Rosuvastatin 5 MG TAB PO (20:02)
[2019-07-20] MEDS: Normal Saline Flush 10 ML SYR IVP (21:58)
[2019-07-20] MEDS: Lidocaine 5% Patch 1 PATCH TP (22:08)
[2019-07-21] VITALS (11 sets, daily range): BP systolic 145–175; BP diastolic 67–91; PULSE 56–84; RESP 14–20; TEMP 36.1–36.7; O2SAT 94–99
[2019-07-21] MEDS: Acetaminophen 325 MG TAB PO (04:31)
[2019-07-21 07:19] LABS: Abs Immature Grans 0.05 k/cumm (0.0-0.09); HCT 27.2 % (36.0-46.0); HGB 8.8 g/dL (12.0-15.5); Mean Corp. HGB Concentration 32.4 g/dL (32.0-36.0); Mean Corpuscular Hemoglobin 29.1 pg (27.0-33.0); Mean Corpuscular Volume 90.1 fL (80-95); Mean Platelet Volume 11.5 fL (8.0-11.0); RBC 3.02 m/cumm (4.00-5.20); RBC Distribution Width 13.4 % (11.7-14.6)
[2019-07-21 07:34] LABS: Anion Gap 10.6 mmol/L (3-11); BUN 35 mg/dL (7-18); CO2 20.4 mmol/L (21.0-32.0); CREATININE 1.59 mg/dL (0.55-1.02); Calcium 8.2 mg/dL (8.5-10.1); Chloride 107 mmol/L (98-107); Estimated GFR 31.57 (mL/min/1.73m2); Glucose 215 mg/dL (70-100); Magnesium 1.9 mg/dL (1.8-2.4); Potassium 4.3 mmol/L (3.5-5.1); Sodium 138 mmol/L (136-145)
[2019-07-21 08:00] LABS: Absolute Lymphocyte Count 1.12 k/cumm (1.2-3.4); Absolute Neutrophil Count 4.65 k/cumm (1.2-6.7); Platelet Count 172 x1000/uL (130-400)
[2019-07-21 08:01] LABS: Absolute Monocyte Count 0.37 k/cumm (0.11-0.7); Atypical Lymphocytes % 1; Diff Comment Manual Differential
[2019-07-21] MEDS: Verapamil 80 MG TAB 40 MG PO ×2 (08:01→20:12)
[2019-07-21 08:02] LABS: Basophilic Stippling Present; Polychromasia Present
[2019-07-21] MEDS: Esomeprazole 40 MG CAPCR PO ×2 (08:02→20:12)
[2019-07-21] MEDS: Digoxin 0.25 MG TAB 0.625 MG PO (08:02)
[2019-07-21 08:04] LABS: Poikilocytes 1+
[2019-07-21] MEDS: Fluticasone NASAL SPRAY 16 GM BTL NS (08:10)
[2019-07-21] MEDS: oxyCODONE 5 MG TAB PO ×2 (08:10→17:24)
--- NOTE | 2019-07-21 09:20 | CMPROGNOTE_ITS ---
Care Management Progress Note S/O: Francisca had a down and back appointment at [facility] [place] intervention with Urology and was gone for the day. CM continues to follow. A: 74 year old female admitted to [facility] 07/18/19 for NAPOLEON, Nephrolithiasis, MODI P: Francisca had a down and back appointment at [facility] today for Urology consult due to unavailability at [facility] this week, CM continues to follow.
--- NOTE | 2019-07-21 09:20 | PDOC.CMPRO ---
Care Management Progress Note S/O: Francisca had a down and back appointment at [facility] for surgical intervention with Urology and was gone for the day. CM continues to follow. A: 74 year old female admitted to [facility] 07/18/19 for NAPOLEON, Nephrolithiasis, MODI P: Francisca had a down and back appointment at [facility] today for Urology consult due to unavailability at [facility] this week, CM continues to follow.
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
--- NOTE | 2019-07-21 15:54 | W.PM.PROGNOT ---
Date of Service Date of service: 07/21/19 Time of Service: 15:55 Assessment and Plan Assessment and plan (1) NAPOLEON (acute kidney injury): Status: Acute Assessment and plan: NAPOLEON in the setting of an obstructing stone, with a likely component of initial dehydration. - Continue to hold patient's MARGOTH inhibitor, avoid nephrotoxins, and renally dose medications when needed. - Patient has been hydrated with IVFs, with creatinine improved but still above baseline and unchanged, and with moderate left sided hydronephrosis. No further need for IVFs. - Will require intervention for stone with stent placement - accepted in down and back transfer to [facility] for procedure today. Remains NPO. Continue a-candice for now. (2) Nephrolithiasis: Status: Chronic Assessment and plan: Plan as above. (3) Blood bacterial culture positive: Status: Acute Assessment and plan: Blood cultures obtained in setting of initial Leukocytosis, without subjective or objective elevation in temperature. Patient also had a negative urinalysis, negative appearing chest x-ray, and a negative reported CT of the chest. Blood Culture showing Branching GPRs in one set, which is either contaminant vs. pathogen per discussion with pathology. Need to stay very vigilant regarding a potential infection in patient given that she is immunosuppressed chronically, but likely her leukocytosis represented reactive changes along with hemoconcentration and dehydration. Received a single dose of cefepime while in the ED, but without any further antibiotics over the last 3 days - remains afebrile and with Leukocytosis resolved - potentially reactive. (4) Leukocytosis: Status: Acute Assessment and plan: As above. (5) High anion gap metabolic acidosis: Status: Acute Assessment and plan: Likely combination of dehydration and acute early renal failure. Resolved. (6) Anemia: Status: Chronic Assessment and plan: Drop in hemoglobin in the setting of gross hematuria, acute illness, and hydration. No complaints of GI blood losses other than some hemorrhoidal bleeding that is described as light. Monitor hemoglobin carefully. (7) CAD (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 disease): Status: None Assessment and plan: History of PCI to the LAD in 2007. ECG was reported as nonischemic, and ruled out for ACS with serial cardiac biomarkers. - Please note that patient has been complaining of MODI for some time now, and was actually scheduled for a nuclear stress test on the day of admission as an outpatient. EKG Non-ischemic, troponins undetectable, ECHO without note of wma's, and with normal LVEF (Noted Diastolic Dysfunction only). CT without acute pathology. Patient has a history of Asthma, but with clear air entry and no wheezing on exam. Also not hypoxic. Plan on repeating stress test once patient is less acutely ill, but doubt ACS. Patient should be able to undergo a low risk procedure without need for further cardiac intervention or testing. Continue home regimen of aspirin, high potency statin. Patient is also on verapamil and not on beta-candice therapy. Qualifiers: Coronary Disease-Associated Artery/Lesion type: [place] artery [place] vs. transplanted heart: [place] heart Associated angina: without angina Qualified Code(s): I25.10 - Atherosclerotic heart disease of [place] 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 without angina pectoris (8) PSVT (paroxysmal supraventricular tachycardia): Status: None Assessment and plan: History of PSVT's, for which the patient has been maintained on verapamil and digoxin. According to cardiology notes she has refused to come off of digoxin in the past. Dig levels in the past have ranged in the 0.3-0.4 range mostly, but given evidence of acute renal insufficiency repeat level was checked and still low, albeit higher than her baseline at 0.69. Given improved creatinine reinitiated Dig. Continue to monitor renal function. (9) Diabetes mellitus: Status: Chronic Assessment and plan: Hold minimal home dosing of basal insulin, and hold metformin as well while hospitalized and especially given acute kidney injury. Will maintain on a sliding scale coverage, and ensure ADA diet. (10) DVT prophylaxis: Status: Acute Assessment and plan: SC heparin. Subjective Subjective Interval history since last seen: Very pleasant 74-year-old woman with a past medical history significant for CAD, DM, and Psoriatec arthritis on immunosuppressive therapy, admitted from [facility] ED on 07/18 with a diagnosis of NAPOLEON, nephrolithiasis, and MODI. Mrs. Kong has a Past Medical History significant for CAD s/p PCI to LAD in 2007, PSVT's maintained on digoxin and verapamil, HTN, KALEY on BiPAP therapy, GERD, IBS, anxiety, and DM. She has a history of Psoriatec Arthritis for which she is on chronic therapy with low-dose daily prednisone and weekly injections of Humira. Patient began experiencing dyspnea on exertion a few weeks ago, and was seen by her chemical detection expert recently who scheduled a stress tests for further evaluation of this complaint. The patient presented to the ED 2 days ago with reported continued dyspnea on exertion, but with new onset of left flank pain and worsening lower abdominal pain. While she admitted to constipation, her imaging with CT of the abdomen and pelvis showed evidence of a 0.5 X 1 cm left-sided ureteropelvic junction stone with moderate associated hydronephrosis. At that time she also had mild NAPOLEON, mild leukocytosis with no evidence of UTI. Her CXR was unremarkable. Following hydration and medications she felt improved and requested to return home - follow-up was arranged with Urology, who unfortunately is not available this week. Mrs. Kong returned to the ED earlier on the afternoon of admission with complaints of continued dyspnea, continued flank pain, with onset of nausea and vomiting at home on the day prior to her presentation. She also admitted to poor oral intake. Initial lab work was significant for worsening leukocytosis, worsening anemia, worsening NAPOLEON with a creatinine of 1.89, and evidence of hyponatremia, hypochloremia, low bicarb and an elevated anion gap. Her urinalysis continued to be negative for infection, and her lactate was normal. A VBG was checked with a pH that was normal at 7.39. Troponin was in the normal range at 0.06, with an ECG that was not acutely ischemic - she has since ruled out with serial cardiac biomarkers. D-dimer was grossly elevated. The patient was at that time evaluated further with a renal ultrasound that showed continued left-sided hydronephrosis, but the stone was not visualized secondary to abdominal gas. CT of the chest was also procured without contrast, and negative for any acute findings. A repeat CT with stone protocol showed a 1cm proximal left ureteral calculus causing moderate hydro, with mild distal migration since last exam. Since her admission the patient's renal function has improved, although not normalized and now unchanged and stable at 1.5. Her leukocytosis and anion gap have both resolved. She continues to experience left flank pain and poor oral intake, but is stable. One set of blood cultures is growing a branching GPR, not yet identified as pathogen or contaminant. Discussed case with Urology, and she has been accepted in transfer for stent placement, which she is set to receive later today. No overnight events reported. Remains afebrile. Exam Narrative Exam Narrative: General: Patient appears comfortable, AAOX3, NAD HEENT: Previously dry MM, now normal Neck: Supple CV: Regular, no longer tachycardic, S1S2, No rubs, murmurs, or gallops. Pulmonary: Clear to auscultation bilaterally, no crackles, wheezing, or rhonchi Abdomen: + Bowel Sounds, soft, nontender, nondistended Vascular: No lower extremity edema Psych: Normal mood and affect. Objective Objective Clinical Data: Abnormal lab results 07/21/19 07/21/19 Range/Units 06:20 06:40 RBC 3.02 L (4.00-5.20) m/cumm Hgb 8.8 L (12.0-15.5) g/dL Hct 27.2 L (36.0-46.0) % MPV 11.5 H (8.0-11.0) fL Absolute Lymphocytes 1.12 L (1.2-3.4) k/cumm Carbon Dioxide 20.4 L (21.0-32.0) mmol/L BUN 35 H (7-18) mg/dL Creatinine 1.59 H (0.55-1.02) mg/dL Glucose 215 H (70-100) mg/dL Calcium 8.2 L (8.5-10.1) mg/dL Vital Signs Temperature 36.7 C 07/21/19 07:35 Temperature Source Tympanic 07/21/19 07:35 Pulse 84 07/21/19 09:33 Pulse Rhythm Regular 07/21/19 04:39 Pulse Strength Normal 07/18/19 16:16 Pulse 88 07/18/19 17:01 Respiratory Rate 16 07/21/19 07:35 Respiratory Effort Non-Labored 07/21/19 04:39 Respiratory Depth Normal 07/21/19 04:39 Respiratory Pattern Normal 07/21/19 04:39 Blood Pressure 175/91 H 07/21/19 07:35 Blood Pressure Mean 71 07/18/19 17:01 Pulse Oximetry 99 07/21/19 07:35 Oxygen Delivery Method Room Air 07/21/19 07:35 Oxygen Flow Rate 0 07/21/19 07:35 Fraction of Inspired Oxygen (FIO2) 21 07/21/19 05:00 Pain Level 7 07/21/19 08:10 Comment 07/21/19 07:35 Intake & Output 07/20/19 07/21/19 07/21/19 23:59 11:59 23:59 Intake Total 720 / 2672.083 200 / 200 Output Total 400 / 1050 250 / 250 Balance 320 / 1622.083 -50 / -50 Weight 90.7 kg Intake: IV 80 / 2032.083 Oral 640 / 640 200 / 200 Output: Urine 400 / 1050 250 / 250 Other: Urine Color Yellow Yellow Urine Appearance Clear Clear Comment pt voided in toilet when having bowel movement. pt requested hat be removed from toilet to have bm. unable to strain urine at this time Unknown amount of urine mixed with stool. Stool Size Moderate Moderate Stool Characteristics Soft Formed Formed Brown Brown Voiding Methods Bedside Commode Bedside Commode Laboratory Results WBC 6.20 k/cumm (4.4-10.8) D 07/21/19 06:20 RBC 3.02 m/cumm (4.00-5.20) L 07/21/19 06:20 Hgb 8.8 g/dL (12.0-15.5) L 07/21/19 06:20 Hct 27.2 % (36.0-46.0) L 07/21/19 06:20 MCV 90.1 fL (80-95) 07/21/19 06:20 MCH 29.1 pg (27.0-33.0) 07/21/19 06:20 MCHC 32.4 g/dL (32.0-36.0) 07/21/19 06:20 RDW 13.4 % (11.7-14.6) 07/21/19 06:20 Plt Count 172 x1000/uL (130-400) 07/21/19 06:20 MPV 11.5 fL (8.0-11.0) H 07/21/19 06:20 Immature Gran % See Differential 07/21/19 06:20 Neutrophils % 68.0 07/21/19 06:20 Band Neutrophils % 7.0 % 07/21/19 06:20 Lymphocytes % 17.0 07/21/19 06:20 Atypical Lymphs % 1 07/21/19 06:20 Monocytes % 6.0 07/21/19 06:20 Eosinophils % 0.0 07/21/19 06:20 Basophils % 0.0 07/21/19 06:20 Metamyelocytes % 1.0 % 07/21/19 06:20 Absolute Neutrophils 4.65 k/cumm (1.2-6.7) 07/21/19 06:20 Absolute Lymphocytes 1.12 k/cumm (1.2-3.4) L 07/21/19 06:20 Absolute Monocytes 0.37 k/cumm (0.11-0.7) 07/21/19 06:20 Absolute Eosinophils 0.00 k/cumm (0.0-0.7) 07/21/19 06:20 Absolute Basophils 0.00 k/cumm (0.0-0.2) 07/21/19 06:20 Differential Comment Manual differential 07/21/19 06:20 RBC Morphology See below 07/21/19 06:20 Polychromasia Present 07/21/19 06:20 Hypochromasia 1+ 07/20/19 06:18 Poikilocytosis 1+ 07/21/19 06:20 Basophilic Stippling Present 07/21/19 06:20 Anisocytosis 1+ 07/20/19 06:18 PT 10.9 sec (9.3-11.0) 07/18/19 13:10 INR 1.1 (0.9-1.1) 07/18/19 13:10 APTT 28.9 sec (21.0-31.4) 07/18/19 13:10 D-Dimer > 7500 ng/mlFEU (<500) H 07/18/19 13:10 Sample Site Cancelled 07/18/19 15:07 pCO2 Cancelled 07/18/19 15:07 pO2 Cancelled 07/18/19 15:07 O2 Saturation Cancelled 07/18/19 15:07 ABG pH Cancelled 07/18/19 15:07 ABG HCO3 Cancelled 07/18/19 15:07 ABG Total CO2 Cancelled 07/18/19 15:07 ABG Base Excess Cancelled 07/18/19 15:07 VBG pH 7.39 (7.32-7.43) 07/18/19 15:06 VBG pCO2 33 mm/Hg (34-47) L 07/18/19 15:06 VBG pO2 42 mm/Hg (28-44) 07/18/19 15:06 VBG HCO3 20 mmol/L (22-28) L 07/18/19 15:06 VBG Total CO2 19 mmol/L (22-29) L 07/18/19 15:06 VBG O2 Saturation 76 % (70-80) 07/18/19 15:06 VBG Base Excess mmol/L (-3-3) 07/18/19 15:06 Oxygen Liter Flow Cancelled 07/18/19 15:07 FiO2 Cancelled 07/18/19 15:07 Sodium 138 mmol/L (136-145) 07/21/19 06:40 Potassium 4.3 mmol/L (3.5-5.1) 07/21/19 06:40 Chloride 107 mmol/L (98-107) 07/21/19 06:40 Carbon Dioxide 20.4 mmol/L (21.0-32.0) L 07/21/19 06:40 Anion Gap 10.6 mmol/L (3-11) 07/21/19 06:40 BUN 35 mg/dL (7-18) H 07/21/19 06:40 Creatinine 1.59 mg/dL (0.55-1.02) H 07/21/19 06:40 Estimated GFR/1.73 m2 31.57 (mL/min/1.73m2) 07/21/19 06:40 Glucose 215 mg/dL (70-100) H 07/21/19 06:40 POC Glucose Cancelled 07/18/19 15:57 Lactate 1.1 mmol/L (0.6-1.4) 07/18/19 14:33 Calcium 8.2 mg/dL (8.5-10.1) L 07/21/19 06:40 Magnesium 1.9 mg/dL (1.8-2.4) 07/21/19 06:40 Total Bilirubin 0.5 mg/dL (0.2-1.0) 07/18/19 13:10 AST 31 U/L (15-37) 07/18/19 13:10 ALT 31 U/L (14-59) 07/18/19 13:10 Alkaline Phosphatase 66 U/L (46-116) 07/18/19 13:10 Troponin I < 0.05 ng/mL (0.00-0.06) 07/19/19 06:15 NT-Pro-B Natriuret Pep 899 pg/mL (-299) H 07/18/19 13:10 Total Protein 7.0 g/dL (6.4-8.2) 07/18/19 13:10 Albumin 2.8 g/dL (3.4-5.0) L 07/18/19 13:10 Urine Color Yellow (Yellow) 07/18/19 12:25 Urine Clarity Sl cloudy (Clear) 07/18/19 12:25 Urine pH 5.5 (5-8) 07/18/19 12:25 Ur Specific [place] 1.020 (1.005-1.025) 07/18/19 12:25 Urine Protein 30 mg/dL (Negative) H 07/18/19 12:25 Urine Ketones 40 mg/dL (Negative) H 07/18/19 12:25 Urine Blood Moderate (Negative) H 07/18/19 12:25 Urine Nitrite Negative (Negative) 07/18/19 12:25 Urine Bilirubin Moderate (Negative) H 07/18/19 12:25 Urine Urobilinogen 0.2 EU/dL (Up TO 0.2) 07/18/19 12:25 Ur Leukocyte Esterase Negative (Negative) 07/18/19 12:25 Urine RBC 5-10 (0-2) H 07/18/19 12:25 Urine WBC 3-5 HPF (0-5) 07/18/19 12:25 Ur Epithelial Cells Moderate HPF (Negative) 07/18/19 12:25 Urine Crystals Few amorphous HPF (Negative) 07/18/19 12:25 Urine Bacteria Few HPF (Negative) 07/18/19 12:25 Urine Casts 5-10 coarse granular LPF (Negative) 07/18/19 12:25 Urine Mucus Negative (Negative) 07/18/19 12:25 Urine Other (Negative) 07/18/19 12:25 Ur Culture Indicated? No 07/18/19 12:25 Urine Glucose Negative mg/dL (Negative) 07/18/19 12:25 Digoxin 0.69 ng/mL (0.90-2.00) L 07/18/19 13:10
[2019-07-21] MEDS: Rosuvastatin 5 MG TAB PO (20:12)
[2019-07-21] MEDS: Mometasone 220 MCG 14 DOSE INHALER 2 PUFF IH (20:18)
[2019-07-21] MEDS: Normal Saline Flush 10 ML SYR IVP (22:20)
[2019-07-21] MEDS: Hydrocortisone SOD SUC. 100 MG VIAL 50 MG IVP (22:22)
[2019-07-22] VITALS (11 sets, daily range): BP systolic 128–181; BP diastolic 64–85; PULSE 47–71; RESP 14–18; TEMP 35.7–37.2; O2SAT 97–98
[2019-07-22] MEDS: oxyCODONE 5 MG TAB PO (05:33)
[2019-07-22 07:12] LABS: HCT 31.5 % (36.0-46.0); HGB 10.2 g/dL (12.0-15.5); Mean Corp. HGB Concentration 32.4 g/dL (32.0-36.0); Mean Corpuscular Hemoglobin 29.2 pg (27.0-33.0); Mean Corpuscular Volume 90.3 fL (80-95); Platelet Count 214 x1000/uL (130-400); RBC 3.49 m/cumm (4.00-5.20); RBC Distribution Width 13.3 % (11.7-14.6); White Blood Cell Count 6.35 k/cumm (4.4-10.8)
[2019-07-22 07:19] LABS: Anion Gap 10.7 mmol/L (3-11); BUN 22 mg/dL (7-18); CO2 24.3 mmol/L (21.0-32.0); CREATININE 1.12 mg/dL (0.55-1.02); Calcium 8.6 mg/dL (8.5-10.1); Chloride 105 mmol/L (98-107); Glucose 191 mg/dL (70-100); Magnesium 1.7 mg/dL (1.8-2.4); Potassium 4.2 mmol/L (3.5-5.1); Sodium 140 mmol/L (136-145)
[2019-07-22] MEDS: Mometasone 220 MCG 14 DOSE INHALER 2 PUFF IH ×2 (07:39→20:49)
[2019-07-22 07:53] LABS: Absolute Lymphocyte Count 1.46 k/cumm (1.2-3.4); Absolute Monocyte Count 0.32 k/cumm (0.11-0.7); Absolute Neutrophil Count 4.51 k/cumm (1.2-6.7); Atypical Lymphocytes % 2
[2019-07-22 07:54] LABS: Diff Comment Manual Differential; Poikilocytes 1+; Promyelocytes % 0 %
[2019-07-22] MEDS: Fluticasone NASAL SPRAY 16 GM BTL NS (08:15)
[2019-07-22] MEDS: Insulin Aspart 300 UNITS/3 ML PEN SC ×3 (08:15→16:49)
[2019-07-22] MEDS: Esomeprazole 40 MG CAPCR PO ×2 (08:16→20:29)
[2019-07-22] MEDS: predniSONE 5 MG TAB PO (08:16)
[2019-07-22] MEDS: Docusate Sodium 100 MG CAP PO (08:20)
[2019-07-22] MEDS: Verapamil 80 MG TAB 40 MG PO ×3 (09:03→20:28)
[2019-07-22] MEDS: MAGNESIUM SULFATE 1 GM/100 ML BAG IVPB (10:56)
[2019-07-22] MEDS: Normal Saline Flush 10 ML SYR IVP (10:56)
--- NOTE | 2019-07-22 11:56 | PGE_ITS ---
Date of Service Date of service: 07/22/19 Time of Service: 11:57 Assessment and Plan Assessment and plan (1) Blood bacterial culture positive: Status: Acute Assessment and plan: Blood cultures obtained in setting of initial Leukocytosis, without subjective or objective elevation in temperature. However, both sets now growing Branching Gram Positive Rods. Patient had an initial negative urinalysis. Per discussion with ID, possible that due to obstruction from the stone infection may have been hidden behind the calculus and with a negative u/a representing collection from the contralateral kidney. Now that stent is in place, will repeat urinalysis - given PCN allergy will also initiate on Ceftriaxone at 1g daily. Will also await culture results - if speciates to Actinomyces then source is technically possible, but if blood cultures grow other pathogen such as Nocardia, then further infectious work-up needs to be undertaken. Please note that patient's TTE did not show any overt evidence of vegetation, and her CT of the chest, abdomen, and pelvis similiarly were without other pathology. Mrs. Kong is immunosuppressed on Humira injections and daily prednisone, and likely not safe for discharge. Culture results to be speciated likely in 2 days' time, during which she merits close monitoring. Repeat Blood Cultures and Urinalysis obtained. The entirety of patient's history and findings were reviewed with ID from [facility], with the above plan initiated as a result. Would benefit from eventual ID Follow-up as well. (2) Leukocytosis: Status: Acute Assessment and plan: As above. (3) NAPOLEON (acute kidney injury): Status: Acute Assessment and plan: NAPOLEON in the setting of an obstructing stone, with a likely component of initial dehydration. Creatinine improved and nearing baseline of 0.8 post stenting, from 1.89 --> 1.12 this morning. - Continue to hold patient's MARGOTH inhibitor, avoid nephrotoxins, and renally dose medications when needed. (4) High anion gap metabolic acidosis: Status: Acute Assessment and plan: Likely combination of dehydration and acute early renal failure. Resolved. (5) Nephrolithiasis: Status: Chronic Assessment and plan: S/p Cystoscopy with ureteral stent at [facility] on 07/21 - will require Urology follow-up upon discharge. (6) Anemia: Status: Chronic Assessment and plan: Drop in hemoglobin in the setting of gross hematuria, acute illness, and hydration. No complaints of GI blood losses other than some hemorrhoidal bleeding that is described as light. Monitor hemoglobin carefully. (7) CAD (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 disease): Status: None Assessment and plan: History of PCI to the LAD in 2007. ECG was reported as nonischemic, and ruled out for ACS with serial cardiac biomarkers. - Please note that patient has been complaining of MODI for some time now, and was actually scheduled for a nuclear stress test on the day of admission as an outpatient. EKG Non-ischemic, troponins undetectable, ECHO without note of wma's, and with normal LVEF (Noted Diastolic Dysfunction only). CT without acute pathology. Patient has a history of Asthma, but with clear air entry and no wheezing on exam. Also not hypoxic. Plan on repeating stress test once patient is less acutely ill, but doubt ACS. - Continue home regimen of aspirin, high potency statin. Patient is also on verapamil and not on beta-candice therapy. Qualifiers: Coronary Disease-Associated Artery/Lesion type: [place] artery [place] vs. transplanted heart: [place] heart Associated angina: without angina Qualified Code(s): I25.10 - Atherosclerotic heart disease of [place] 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 without angina pectoris (8) PSVT (paroxysmal supraventricular tachycardia): Status: None Assessment and plan: History of PSVT's, for which the patient has been maintained on verapamil and digoxin. According to cardiology notes she has refused to come off of digoxin in the past. Dig levels in the past have ranged in the 0.3-0.4 range mostly, but given evidence of acute renal insufficiency repeat level was checked and still low, albeit higher than her baseline at 0.69. Given improved creatinine reinitiated Dig, but patient is borderline bradycardic this morning. Plan on holding dig today, with repeat levels tomorrow morning. Continue to monitor renal function. (9) Diabetes mellitus: Status: Chronic Assessment and plan: Hold minimal home dosing of basal insulin, and hold metformin as well while hospitalized and especially given acute kidney injury. Will maintain on a sliding scale coverage, and ensure ADA diet. (10) Psoriatic arthritis: Status: Acute Assessment and plan: On recently initiated Humira and low dose daily prednisone. Received stress dosed steroids. Continue daily prednisone. (11) DVT prophylaxis: Status: Acute Assessment and plan: SC heparin. Subjective Subjective Interval history since last seen: Very pleasant 74-year-old woman with a past medical history significant for CAD, DM, and Psoriatec arthritis on immunosuppressive therapy, admitted from [facility] ED on 07/18 with a diagnosis of NAPOLEON, nephrolithiasis, and MODI. Mrs. Kong has a Past Medical History significant for CAD s/p PCI to LAD in 2007, PSVT's maintained on digoxin and verapamil, HTN, KALEY on BiPAP therapy, GERD, IBS, anxiety, and DM. She has a history of Psoriatec Arthritis for which she is on chronic therapy with low-dose daily prednisone and weekly injections of Humira. 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 The patient presented to the ED 2 days ago with reported continued dyspnea on exertion, but with new onset of left flank pain and worsening lower abdominal pain. While she admitted to [facility], her imaging with CT of the abdomen and pelvis showed evidence of a 0.5 X 1 cm left- sided ureteropelvic junction stone with moderate associated hydronephrosis. At that time she also had mild NAPOLEON, mild leukocytosis with no evidence of UTI. Her CXR was unremarkable. Following hydration and medications she felt improved and requested to return home - follow-up was arranged with Urology, who unfortunately is not available this week. Mrs. Kong returned to the ED earlier on the afternoon of admission with complaints of continued dyspnea, continued flank pain, with onset of nausea and vomiting at home on the day prior to her presentation. She also admitted to poor oral intake. Initial lab work was significant for worsening leukocytosis, worsening anemia, worsening NAPOLEON with a creatinine of 1.89, and evidence of hyponatremia, hypochloremia, low bicarb and an elevated anion gap. Her urinalysis continued to be negative for infection, and her lactate was normal. A VBG was checked with a pH that was normal at 7.39. Troponin was in the normal range at 0.06, with an ECG that was not acutely ischemic - she has since ruled out with serial cardiac biomarkers. D-dimer was grossly elevated. The patient was at that time evaluated further with a renal ultrasound that showed continued left-sided hydronephrosis, but the stone was not visualized secondary to abdominal gas. CT of the chest was also procured without contrast, and negative for any acute findings. A repeat CT with stone protocol showed a 1cm proximal left ureteral calculus causing moderate hydro, with mild distal migration since last exam. The patient underwent a cystoscopy with stent placement at [facility] yesterday. This morning her renal function has improved and nearly normalized. Yesterday one set of blood cultures was reportedly growing a branching GPR, not yet identified. Today the other set is reportedly growing a GPR as well. The patient remains afebrile and without complaints. Her flank pain is resolved. No other events reported. Exam Narrative Exam Narrative: General: Patient appears comfortable, AAOX3, NAD HEENT: Previously dry MM, now normal Neck: Supple CV: Regular, no longer tachycardic, S1S2, No rubs, murmurs, or gallops. Pulmonary: Clear to auscultation bilaterally, no crackles, wheezing, or rhonchi Abdomen: + Bowel Sounds, soft, nontender, nondistended Vascular: No lower extremity edema Psych: Normal mood and affect. Objective Objective Clinical Data: Abnormal lab results 07/22/19 07/22/19 Range/Units 06:35 06:35 RBC 3.49 L (4.00-5.20) m/cumm Hgb 10.2 L (12.0-15.5) g/dL Hct 31.5 L (36.0-46.0) % BUN 22 H D (7-18) mg/dL Creatinine 1.12 H (0.55-1.02) mg/dL Glucose 191 H (70-100) mg/dL Magnesium 1.7 L (1.8-2.4) mg/dL Vital Signs Temperature 36.6 C 07/22/19 07:20 Temperature Source Tympanic 07/22/19 07:20 Pulse 60 07/22/19 07:20 Pulse Rhythm Regular 07/22/19 11:15 Pulse Strength Normal 07/18/19 16:16 Pulse 88 07/18/19 17:01 Respiratory Rate 18 07/22/19 07:20 Respiratory Effort Non-Labored 07/22/19 11:15 Respiratory Depth Normal 07/22/19 11:15 Respiratory Pattern Normal 07/22/19 11:15 Blood Pressure 181/85 H 07/22/19 07:20 Blood Pressure Mean 71 07/18/19 17:01 Pulse Oximetry 97 07/22/19 07:20 Oxygen Delivery Method Room Air 07/22/19 07:20 Oxygen Flow Rate 0 07/22/19 07:20 Fraction of Inspired Oxygen (FIO2) 21 07/21/19 22:58 Pain Level 6 07/22/19 07:20 Comment 07/21/19 07:35 Intake & Output 07/21/19 07/21/19 07/22/19 11:59 23:59 11:59 Intake Total 200 / 720 520 / 720 250 / 250 Output Total 250 / 3980 3730 / 3980 900 / 900 Balance -50 / -3260 -3210 / -3260 -650 / -650 Weight 90.7 kg 87.7 kg Intake: IV 40 / 40 Oral 200 / 680 480 / 680 240 / 240 Output: Urine 250 / 3980 3730 / 3980 900 / 900 Other: Urine Color Yellow [place] Yellow Straw Urine Appearance Clear Clear Clear Urine Odor Normal None Comment Unknown amount of urine mixed with stool. voided 100cc's of pink urine on commode but was also incontinent of a large amount at this time Stool Size Moderate Stool Characteristics Formed Brown Voiding Methods Bedside Commode Bedside Commode Bedside Commode Laboratory Results WBC 6.35 k/cumm (4.4-10.8) 07/22/19 06:35 RBC 3.49 m/cumm (4.00-5.20) L 07/22/19 06:35 Hgb 10.2 g/dL (12.0-15.5) L 07/22/19 06:35 Hct 31.5 % (36.0-46.0) L 07/22/19 06:35 MCV 90.3 fL (80-95) 07/22/19 06:35 MCH 29.2 pg (27.0-33.0) 07/22/19 06:35 MCHC 32.4 g/dL (32.0-36.0) 07/22/19 06:35 RDW 13.3 % (11.7-14.6) 07/22/19 06:35 Plt Count 214 x1000/uL (130-400) 07/22/19 06:35 MPV 11.0 fL (8.0-11.0) 07/22/19 06:35 Immature Gran % See Differential 07/22/19 06:35 Neutrophils % 70.0 07/22/19 06:35 Band Neutrophils % 1.0 % 07/22/19 06:35 Lymphocytes % 21.0 07/22/19 06:35 Atypical Lymphs % 2 07/22/19 06:35 Monocytes % 5.0 07/22/19 06:35 Eosinophils % 0.0 07/22/19 06:35 Basophils % 0.0 07/22/19 06:35 Metamyelocytes % 1.0 % 07/22/19 06:35 Myelocytes % 0.0 % 07/22/19 06:35 Promyelocytes % 0 % 07/22/19 06:35 Absolute Neutrophils 4.51 k/cumm (1.2-6.7) 07/22/19 06:35 Absolute Lymphocytes 1.46 k/cumm (1.2-3.4) 07/22/19 06:35 Absolute Monocytes 0.32 k/cumm (0.11-0.7) 07/22/19 06:35 Absolute Eosinophils 0.00 k/cumm (0.0-0.7) 07/22/19 06:35 Absolute Basophils 0.00 k/cumm (0.0-0.2) 07/22/19 06:35 Differential Comment Manual differential 07/22/19 06:35 RBC Morphology See below 07/22/19 06:35 Polychromasia Present 07/21/19 06:20 Hypochromasia 1+ 07/20/19 06:18 Poikilocytosis 1+ 07/22/19 06:35 Basophilic Stippling Present 07/21/19 06:20 Anisocytosis 1+ 07/20/19 06:18 PT 10.9 sec (9.3-11.0) 07/18/19 13:10 INR 1.1 (0.9-1.1) 07/18/19 13:10 APTT 28.9 sec (21.0-31.4) 07/18/19 13:10 D-Dimer > 7500 ng/mlFEU (<500) H 07/18/19 13:10 Sample Site Cancelled 07/18/19 15:07 pCO2 Cancelled 07/18/19 15:07 pO2 Cancelled 07/18/19 15:07 O2 Saturation Cancelled 07/18/19 15:07 ABG pH Cancelled 07/18/19 15:07 ABG HCO3 Cancelled 07/18/19 15:07 ABG Total CO2 Cancelled 07/18/19 15:07 ABG Base Excess Cancelled 07/18/19 15:07 VBG pH 7.39 (7.32-7.43) 07/18/19 15:06 VBG pCO2 33 mm/Hg (34-47) L 07/18/19 15:06 VBG pO2 42 mm/Hg (28-44) 07/18/19 15:06 VBG HCO3 20 mmol/L (22-28) L 07/18/19 15:06 VBG Total CO2 19 mmol/L (22-29) L 07/18/19 15:06 VBG O2 Saturation 76 % (70-80) 07/18/19 15:06 VBG Base Excess mmol/L (-3-3) 07/18/19 15:06 Oxygen Liter Flow Cancelled 07/18/19 15:07 FiO2 Cancelled 07/18/19 15:07 Sodium 140 mmol/L (136-145) 07/22/19 06:35 Potassium 4.2 mmol/L (3.5-5.1) 07/22/19 06:35 Chloride 105 mmol/L (98-107) 07/22/19 06:35 Carbon Dioxide 24.3 mmol/L (21.0-32.0) 07/22/19 06:35 Anion Gap 10.7 mmol/L (3-11) 07/22/19 06:35 BUN 22 mg/dL (7-18) H D 07/22/19 06:35 Creatinine 1.12 mg/dL (0.55-1.02) H 07/22/19 06:35 Estimated GFR/1.73 m2 47.30 (mL/min/1.73m2) 07/22/19 06:35 Glucose 191 mg/dL (70-100) H 07/22/19 06:35 POC Glucose Cancelled 07/18/19 15:57 Lactate 1.1 mmol/L (0.6-1.4) 07/18/19 14:33 Calcium 8.6 mg/dL (8.5-10.1) 07/22/19 06:35 Magnesium 1.7 mg/dL (1.8-2.4) L 07/22/19 06:35 Total Bilirubin 0.5 mg/dL (0.2-1.0) 07/18/19 13:10 AST 31 U/L (15-37) 07/18/19 13:10 ALT 31 U/L (14-59) 07/18/19 13:10 Alkaline Phosphatase 66 U/L (46-116) 07/18/19 13:10 Troponin I < 0.05 ng/mL (0.00-0.06) 07/19/19 06:15 NT-Pro-B Natriuret Pep 899 pg/mL (-299) H 07/18/19 13:10 Total Protein 7.0 g/dL (6.4-8.2) 07/18/19 13:10 Albumin 2.8 g/dL (3.4-5.0) L 07/18/19 13:10 Urine Color Yellow (Yellow) 07/18/19 12:25 Urine Clarity Sl cloudy (Clear) 07/18/19 12:25 Urine pH 5.5 (5-8) 07/18/19 12:25 Ur Specific [place] 1.020 (1.005-1.025) 07/18/19 12:25 Urine Protein 30 mg/dL (Negative) H 07/18/19 12:25 Urine Ketones 40 mg/dL (Negative) H 07/18/19 12:25 Urine Blood Moderate (Negative) H 07/18/19 12:25 Urine Nitrite Negative (Negative) 07/18/19 12:25 Urine Bilirubin Moderate (Negative) H 07/18/19 12:25 Urine Urobilinogen 0.2 EU/dL (Up TO 0.2) 07/18/19 12:25 Ur Leukocyte Esterase Negative (Negative) 07/18/19 12:25 Urine RBC 5-10 (0-2) H 07/18/19 12:25 Urine WBC 3-5 HPF (0-5) 07/18/19 12:25 Ur Epithelial Cells Moderate HPF (Negative) 07/18/19 12:25 Urine Crystals Few amorphous HPF (Negative) 07/18/19 12:25 Urine Bacteria Few HPF (Negative) 07/18/19 12:25 Urine Casts 5-10 coarse granular LPF (Negative) 07/18/19 12:25 Urine Mucus Negative (Negative) 07/18/19 12:25 Urine Other (Negative) 07/18/19 12:25 Ur Culture Indicated? No 07/18/19 12:25 Urine Glucose Negative mg/dL (Negative) 07/18/19 12:25 Digoxin 0.69 ng/mL (0.90-2.00) L 07/18/19 13:10
[2019-07-22] MEDS: cefTRIAXone 1 GM/50 ML BAG IVPB (12:44)
[2019-07-22 13:41] LABS: Bilirubin Negative (Negative); Blood Large (Negative); Clarity Sl Cloudy (Clear); Glucose 250 mg/dL (Negative); Ketones Negative (Negative); Leukocyte Esterase Small (Negative); Nitrite Negative (Negative); Urobilinogen 0.2 EU/dL (Up TO 0.2); pH 5.5 (5-8)
[2019-07-22 13:50] LABS: Bacteria Moderate HPF (Negative); C & S Indicated? Yes; Casts Negative LPF (Negative); Crystals Negative HPF (Negative); Epithelial Cells Few HPF (Negative); Mucus Negative (Negative); Other Cells Rare Renal (Negative); RBC >50 (0-2); WBC 20-50 HPF (0-5)
[2019-07-22] MEDS: Acetaminophen 325 MG TAB PO (15:03)
--- NOTE | 2019-07-22 15:35 | PT.INTREAT ---
Date of service: 07/22/19 Time of Service: 11:08 PT Notes Inpatient Physical Therapy Treatment Note [facility] Date: 07/22/2019 PRECAUTIONS: Fall. Standard. Activity as tolerated. SUBJECTIVE: Patient states that she has lost 7 pounds of fluid since yesterday's surgery at [facility] and she is very happy about it. She is agreeable to a PT session. She did report being tired after walking for a shorter distance compared to initial evaluation 2 days ago. She continues to be agreeable with home health PT OT and elementary school social worker upon discharge from this hospital when medically cleared. OBJECTIVE: Significant reduction is seen in bilateral lower extremity. PAIN: Reported mild pain and low back area with ambulation activity that subsided with rest. BED MOBILITY/TRANSFERS Rolling L/R: Independent Supine-sit: Independent Sit-supine: Independent Sit-stand: SBA Stand-sit: SBA Bed-Chair: SBA Chair-bed: SBA GAIT Assistive Device: FWW Weight bearing: FWB Assist: SBA Distance: 80 feet +80 feet Deviation: Trunk bent forward as a position of comfort due to a previous L4-L5 compression fracture. Gait velocity increased step height and length increased. Patient did sound a little wheezing during gait activity. She reports fatigue. ASSESSMENT: Patient with left ureteral calculus resulting to moderate hydronephrosis and is status post left ureteral stent placement on 07/21/2019 at the end [facility]. P most recent radiograph of the spine showed central spinal stenosis at L5-S1 level. Patient reports wheeziness with gait activity and states that her energy level hopefully would increase tomorrow for stairs training. She will continue to benefit from skilled physical therapy services to progress his mobility level and reduce fall risk. PLAN: Continue with PT POC as initially established at 1x/day. TREATMENT CODE/TIME: 16854 x 21 minutes beginning at 11:08 AM.
--- NOTE | 2019-07-22 17:10 | CMPROGNOTE_ITS ---
- If Service Date Differs Date of service: 07/22/19 Time of Service: 17:10 Care Management Progress Note S/O: Francisca was sitting in her chair when CM met with her. She was pleasant and engaged in conversation. She stated that she knows that she won't go home today because she was told that she has an infection. Francisca used to work at [facility], so she is very comfortable here. 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 Francisca is comfortable with the plan to remain at [facility] until she is medically cleared. A: 74 year old female admitted to [facility] 07/18/19 for NAPOLEON, Nephrolithiasis, MODI P: Anticipate Francisca will remain at [facility] for close monitoring while awaiting blood culture results. Anticipate Francisca will return home once medically cleared with no additional services. She will be transported home via private vehicle vs [facility] when ready. Per PT, Francisca will require a FWW upon discharge, which CM will coordinate. CM will continue to follow.
[2019-07-22] MEDS: Rosuvastatin 5 MG TAB PO (20:29)
[2019-07-23] VITALS (11 sets, daily range): BP systolic 131–172; BP diastolic 72–84; PULSE 54–77; RESP 14–20; TEMP 36.3–36.9; O2SAT 96–99
[2019-07-23 07:06] LABS: Abs Immature Grans 0.22 k/cumm (0.0-0.09); HCT 30.8 % (36.0-46.0); HGB 9.9 g/dL (12.0-15.5); Mean Corp. HGB Concentration 32.1 g/dL (32.0-36.0); Mean Corpuscular Volume 90.3 fL (80-95); Mean Platelet Volume 10.8 fL (8.0-11.0); Platelet Count 221 x1000/uL (130-400); RBC 3.41 m/cumm (4.00-5.20); RBC Distribution Width 13.3 % (11.7-14.6); White Blood Cell Count 7.41 k/cumm (4.4-10.8)
[2019-07-23 07:21] LABS: Anion Gap 8.1 mmol/L (3-11); BUN 20 mg/dL (7-18); CO2 28.9 mmol/L (21.0-32.0); CREATININE 1.06 mg/dL (0.55-1.02); Calcium 8.8 mg/dL (8.5-10.1); Chloride 105 mmol/L (98-107); Digoxin 1.02 ng/mL (0.90-2.00); Glucose 207 mg/dL (70-100); Magnesium 1.6 mg/dL (1.8-2.4); Sodium 142 mmol/L (136-145)
[2019-07-23 07:53] LABS: Absolute Lymphocyte Count 2.89 k/cumm (1.2-3.4); Absolute Monocyte Count 0.52 k/cumm (0.11-0.7); Atypical Lymphocytes % 2; Diff Comment Manual Differential
[2019-07-23 07:54] LABS: Microcytosis 1+
[2019-07-23] MEDS: Mometasone 220 MCG 14 DOSE INHALER 2 PUFF IH ×2 (07:59→20:55)
[2019-07-23] MEDS: Fluticasone NASAL SPRAY 16 GM BTL NS ×2 (08:57→17:01)
[2019-07-23] MEDS: Insulin Aspart 300 UNITS/3 ML PEN SC ×3 (08:58→17:02)
[2019-07-23] MEDS: Esomeprazole 40 MG CAPCR PO ×2 (08:58→20:55)
[2019-07-23] MEDS: Verapamil 80 MG TAB 40 MG PO ×3 (08:58→20:56)
[2019-07-23] MEDS: predniSONE 5 MG TAB PO (08:58)
[2019-07-23] MEDS: MAGNESIUM SULFATE 2 GM/50 ML BAG IVPB (09:40)
[2019-07-23] MEDS: oxyCODONE 5 MG TAB PO ×2 (11:14→22:32)
[2019-07-23] MEDS: cefTRIAXone 1 GM/50 ML BAG IVPB (12:06)
--- NOTE | 2019-07-23 13:08 | CMPROGNOTE_ITS ---
Care Management Progress Note S/O: Francisca remains pleasant in interaction. Per MD, blood cultures sent out to [facility], awaiting results. Francisca reports feeling like she is experiencing one thing after another. She has multiple ideas and requests including consideration for 4WW (CM reviewed medical nessessity), increased education at [facility] for red and white canes (alert user is vision impaired), and to notify of OP appt for MPI with Cardiology on 07/26/19. CM notified RNCC in the event Francisca remains at [facility] through the weekend. CM continues to follow. A: 74 year old female admitted to [facility] 07/18/19 for NAPOLEON, Nephrolithiasis, MODI P: Francisca will remain at [facility] for continued monitoring while awaiting blood culture results.Francisca will return home once medically cleared with no additional services anticipated at this time. She will transport home via private vehicle vs [facility] when ready. Per PT, Francisca will require a FWW upon discharge, coordinated by CM. CM continues to follow.
--- NOTE | 2019-07-23 13:08 | PDOC.CMPRO ---
Care Management Progress Note S/O: Francisca remains pleasant in interaction. Per MD, blood cultures sent out to [facility], awaiting results. Francisca reports feeling like she is experiencing one thing after another. She has multiple ideas and requests including consideration for 4WW (CM reviewed medical nessessity), increased education at [facility] for red and white canes (alert user is vision impaired), and to notify of OP appt for MPI with Cardiology on 07/26/19. CM notified RNCC in the event Francisca remains at [facility] through the weekend. CM continues to follow. A: 74 year old female admitted to [facility] 07/18/19 for NAPOLEON, Nephrolithiasis, MODI P: Francisca will remain at [facility] for continued monitoring while awaiting blood culture results.Francisca will return home once medically cleared with no additional services anticipated at this time. She will transport home via private vehicle vs [facility] when ready. Per PT, Francisca will require a FWW upon discharge, coordinated by CM. CM continues to follow.
[2019-07-23] MEDS: Heparin 5,000 UNITS/ML VIAL 5000 UNITS SC ×2 (14:23→22:26)
--- NOTE | 2019-07-23 16:33 | PGE_ITS ---
Date of Service Date of service: 07/23/19 Time of Service: 16:33 Assessment and Plan Assessment and plan (1) Blood bacterial culture positive: Status: Acute Assessment and plan: Awaiting speciation from [facility] for Branching Gram Positive Rods - ? nocardia/actinomyces. If Actinomyces, then the likely source is urine, however if blood cultures grow Nocardia, then will need a DELANEY. Mrs. Kong is immunosuppressed on Humira and daily prednisone. Not safe for discharge unless results of blood cultures are known. (2) Leukocytosis: Status: Acute Assessment and plan: As above. (3) NAPOLEON (acute kidney injury): Status: Acute Assessment and plan: Improved. s/p cysto/stent for obstructing stone, also with history of neurogenic bladder. Check PVRs. - Continue to hold patient's MARGOTH inhibitor, avoid nephrotoxins, and renally dose medications when needed. (4) High anion gap metabolic acidosis: Status: Acute Assessment and plan: Likely combination of dehydration and acute early renal failure. Resolved. (5) Nephrolithiasis: Status: Chronic Assessment and plan: S/p Cystoscopy with ureteral stent at [facility] on 07/21 - will require Urology follow-up upon discharge. Will need lithotripsy. (6) Anemia: Status: Chronic Assessment and plan: Acute component in the setting of gross hematuria, acute illness, and hydration. No evidence for active bleeding now. Continue to monitor H/H (7) CAD (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 disease): Status: None Assessment and plan: History of PCI to the LAD in 2007. No ACS on this admission. - Will need a nuclear stress test for workup of MODI. - may need DELANEY as above - CT without acute pathology. Patient has a history of Asthma. Will have to have pulmonary follow up if stress test negative. - Continue home regimen of aspirin, high potency statin. Patient is also on verapamil and not on beta-candice therapy. Qualifiers: Coronary Disease-Associated Artery/Lesion type: [place] artery [place] vs. transplanted heart: [place] heart Associated angina: without angina Qualified Code(s): I25.10 - Atherosclerotic heart disease of [place] 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 without angina pectoris (8) PSVT (paroxysmal supraventricular tachycardia): Status: None Assessment and plan: History of PSVT's, but holding digoxin due to borderline low HR. Continue verapamil. (9) Diabetes mellitus: Status: Chronic Assessment and plan: Hold minimal home dosing of basal insulin, and hold metformin as well while hospitalized and especially given acute kidney injury. Will maintain on a sliding scale coverage, and ensure ADA diet. (10) Psoriatic arthritis: Status: Acute Assessment and plan: On recently initiated Humira and low dose daily pr ednisone. Received stress dosed steroids. Continue daily prednisone. (11) DVT prophylaxis: Status: Acute Assessment and plan: SC heparin. Subjective Subjective Interval history since last seen: Ms Kong states she does not feel well yet - she specifically says she knows she looks better than she feels. She says she gets short of breath just talking. Denies dizziness, chest pain, nausea, vomiting. She has had issues with emptying her bladder. She complains of suprapubic fullness and back pain. Exam Narrative Exam Narrative: General: very pleasant pale elderly female, A&Ox3, sitting comfortably in a chair, does not appear tachypneic when talking to me HEENT: EOMI, MMM Heart: RRR, m/r/g Lungs: CTAB GI: abdomen is soft, nontender, nondistended Extremities: +1 edema BLE's, no c/c Objective Objective Clinical Data: Abnormal lab results 07/23/19 07/23/19 Range/Units 06:38 06:38 RBC 3.41 L (4.00-5.20) m/cumm Hgb 9.9 L (12.0-15.5) g/dL Hct 30.8 L (36.0-46.0) % BUN 20 H (7-18) mg/dL Creatinine 1.06 H (0.55-1.02) mg/dL Glucose 207 H (70-100) mg/dL Magnesium 1.6 L (1.8-2.4) mg/dL Vital Signs Temperature 36.9 C 07/23/19 15:59 Temperature Source Tympanic 07/23/19 15:59 Pulse 74 07/23/19 15:59 Pulse Rhythm Regular 07/23/19 11:25 Pulse Strength Normal 07/18/19 16:16 Pulse 88 07/18/19 17:01 Respiratory Rate 18 07/23/19 15:59 Respiratory Effort Non-Labored 07/23/19 11:25 Respiratory Depth Normal 07/23/19 11:25 Respiratory Pattern Normal 07/23/19 11:25 Blood Pressure 146/84 H 07/23/19 15:59 Blood Pressure Mean 71 07/18/19 17:01 Pulse Oximetry 97 07/23/19 15:59 Oxygen Delivery Method Room Air 07/23/19 15:59 Oxygen Flow Rate 0 07/23/19 15:59 Fraction of Inspired Oxygen (FIO2) 21 07/22/19 16:44 Pain Level 0 07/23/19 15:59 Comment 07/23/19 07:36 Intake & Output 07/22/19 07/23/19 07/23/19 23:59 11:59 23:59 Intake Total 50 / 300 50 / 590 540 / 590 Output Total 200 / 200 Balance 50 / -600 -150 / 390 540 / 390 Weight 87.7 kg Intake: IV 50 / 60 50 / 100 50 / 100 Oral 490 / 490 Output: Urine 200 / 200 Other: Urine Color Straw Urine Appearance Clear Clear Comment no hat in toilet couldn't measure Voiding Methods Toilet Toilet Laboratory Results WBC 7.41 k/cumm (4.4-10.8) 07/23/19 06:38 RBC 3.41 m/cumm (4.00-5.20) L 07/23/19 06:38 Hgb 9.9 g/dL (12.0-15.5) L 07/23/19 06:38 Hct 30.8 % (36.0-46.0) L 07/23/19 06:38 MCV 90.3 fL (80-95) 07/23/19 06:38 MCH 29.0 pg (27.0-33.0) 07/23/19 06:38 MCHC 32.1 g/dL (32.0-36.0) 07/23/19 06:38 RDW 13.3 % (11.7-14.6) 07/23/19 06:38 Plt Count 221 x1000/uL (130-400) 07/23/19 06:38 MPV 10.8 fL (8.0-11.0) 07/23/19 06:38 Immature Gran % See Differential 07/23/19 06:38 Neutrophils % 54.0 07/23/19 06:38 Band Neutrophils % 1.0 % 07/22/19 06:35 Lymphocytes % 37.0 07/23/19 06:38 Atypical Lymphs % 2 10/05/19 06:38 Monocytes % 7.0 07/23/19 06:38 Eosinophils % 0.0 07/23/19 06:38 Basophils % 0.0 07/23/19 06:38 Metamyelocytes % 1.0 % 07/22/19 06:35 Myelocytes % 0.0 % 07/22/19 06:35 Promyelocytes % 0 % 07/22/19 06:35 Absolute Neutrophils 4.00 k/cumm (1.2-6.7) 07/23/19 06:38 Absolute Lymphocytes 2.89 k/cumm (1.2-3.4) 07/23/19 06:38 Absolute Monocytes 0.52 k/cumm (0.11-0.7) 07/23/19 06:38 Absolute Eosinophils 0.00 k/cumm (0.0-0.7) 07/23/19 06:38 Absolute Basophils 0.00 k/cumm (0.0-0.2) 07/23/19 06:38 Differential Comment Manual differential 07/23/19 06:38 RBC Morphology See below 07/23/19 06:38 Polychromasia Present 07/21/19 06:20 Hypochromasia 1+ 07/20/19 06:18 Poikilocytosis 1+ 07/22/19 06:35 Basophilic Stippling Present 07/21/19 06:20 Anisocytosis 1+ 07/20/19 06:18 Microcytosis 1+ 07/23/19 06:38 PT 10.9 sec (9.3-11.0) 07/18/19 13:10 INR 1.1 (0.9-1.1) 07/18/19 13:10 APTT 28.9 sec (21.0-31.4) 07/18/19 13:10 D-Dimer > 7500 ng/mlFEU (<500) H 07/18/19 13:10 Sample Site Cancelled 07/18/19 15:07 pCO2 Cancelled 07/18/19 15:07 pO2 Cancelled 07/18/19 15:07 O2 Saturation Cancelled 07/18/19 15:07 ABG pH Cancelled 07/18/19 15:07 ABG HCO3 Cancelled 07/18/19 15:07 ABG Total CO2 Cancelled 07/18/19 15:07 ABG Base Excess Cancelled 07/18/19 15:07 VBG pH 7.39 (7.32-7.43) 07/18/19 15:06 VBG pCO2 33 mm/Hg (34-47) L 07/18/19 15:06 VBG pO2 42 mm/Hg (28-44) 07/18/19 15:06 VBG HCO3 20 mmol/L (22-28) L 07/18/19 15:06 VBG Total CO2 19 mmol/L (22-29) L 07/18/19 15:06 VBG O2 Saturation 76 % (70-80) 07/18/19 15:06 VBG Base Excess mmol/L (-3-3) 07/18/19 15:06 Oxygen Liter Flow Cancelled 07/18/19 15:07 FiO2 Cancelled 07/18/19 15:07 Sodium 142 mmol/L (136-145) 07/23/19 06:38 Potassium 4.0 mmol/L (3.5-5.1) 07/23/19 06:38 Chloride 105 mmol/L (98-107) 07/23/19 06:38 Carbon Dioxide 28.9 mmol/L (21.0-32.0) 07/23/19 06:38 Anion Gap 8.1 mmol/L (3-11) 07/23/19 06:38 BUN 20 mg/dL (7-18) H 07/23/19 06:38 Creatinine 1.06 mg/dL (0.55-1.02) H 07/23/19 06:38 Estimated GFR/1.73 m2 50.40 (mL/min/1.73m2) 07/23/19 06:38 Glucose 207 mg/dL (70-100) H 07/23/19 06:38 POC Glucose Cancelled 07/18/19 15:57 Lactate 1.1 mmol/L (0.6-1.4) 07/18/19 14:33 Calcium 8.8 mg/dL (8.5-10.1) 07/23/19 06:38 Magnesium 1.6 mg/dL (1.8-2.4) L 07/23/19 06:38 Total Bilirubin 0.5 mg/dL (0.2-1.0) 07/18/19 13:10 AST 31 U/L (15-37) 07/18/19 13:10 ALT 31 U/L (14-59) 07/18/19 13:10 Alkaline Phosphatase 66 U/L (46-116) 07/18/19 13:10 Troponin I < 0.05 ng/mL (0.00-0.06) 07/19/19 06:15 NT-Pro-B Natriuret Pep 899 pg/mL (-299) H 07/18/19 13:10 Total Protein 7.0 g/dL (6.4-8.2) 07/18/19 13:10 Albumin 2.8 g/dL (3.4-5.0) L 07/18/19 13:10 Urine Color Yellow (Yellow) 07/22/19 Unknown Urine Clarity Sl cloudy (Clear) 07/22/19 Unknown Urine pH 5.5 (5-8) 07/22/19 Unknown Ur Specific [place] 1.010 (1.005-1.025) 07/22/19 Unknown Urine Protein 100 mg/dL (Negative) H 07/22/19 Unknown Urine Ketones Negative mg/dL (Negative) 07/22/19 Unknown Urine Blood Large (Negative) H 07/22/19 Unknown Urine Nitrite Negative (Negative) 07/22/19 Unknown Urine Bilirubin Negative (Negative) 07/22/19 Unknown Urine Urobilinogen 0.2 EU/dL (Up TO 0.2) 07/22/19 Unknown Ur Leukocyte Esterase Small (Negative) H 07/22/19 Unknown Urine RBC >50 (0-2) H 07/22/19 Unknown Urine WBC 20-50 HPF (0-5) 07/22/19 Unknown Ur Epithelial Cells Few HPF (Negative) 07/22/19 Unknown Urine Crystals Negative HPF (Negative) 07/22/19 Unknown Urine Bacteria Moderate HPF (Negative) 07/22/19 Unknown Urine Casts Negative LPF (Negative) 07/22/19 Unknown Urine Mucus Negative (Negative) 07/22/19 Unknown Urine Other Rare renal (Negative) 07/22/19 Unknown Ur Culture Indicated? Yes 07/22/19 Unknown Urine Glucose 250 mg/dL (Negative) H 07/22/19 Unknown Digoxin 1.02 ng/mL (0.90-2.00) 07/23/19 06:38
[2019-07-23] MEDS: Rosuvastatin 10 MG TAB PO (20:55)
[2019-07-24] VITALS (8 sets, daily range): BP systolic 153–168; BP diastolic 70–96; PULSE 50–79; RESP 14–18; TEMP 36.4–36.9; O2SAT 96–98
[2019-07-24] MEDS: Acetaminophen 325 MG TAB PO ×2 (03:38→20:31)
[2019-07-24] MEDS: Heparin 5,000 UNITS/ML VIAL 5000 UNITS SC ×3 (05:56→22:18)
[2019-07-24 07:07] LABS: Absolute Basophil Count 0.02 k/cumm (0.0-0.2); Absolute Eosinophil Count 0.16 k/cumm (0.0-0.7); Absolute Lymphocyte Count 2.94 k/cumm (1.2-3.4); Absolute Monocyte Count 0.56 k/cumm (0.11-0.7); Absolute Neutrophil Count 4.14 k/cumm (1.2-6.7); Basophils % 0.2; HCT 30.1 % (36.0-46.0); HGB 9.6 g/dL (12.0-15.5); Immature Grans % 2.5; Lymphocytes % 36.7; Mean Corp. HGB Concentration 31.9 g/dL (32.0-36.0); Mean Corpuscular Hemoglobin 28.9 pg (27.0-33.0); Mean Corpuscular Volume 90.7 fL (80-95); Mean Platelet Volume 10.5 fL (8.0-11.0); Neutrophils % 51.6; Platelet Count 239 x1000/uL (130-400); RBC 3.32 m/cumm (4.00-5.20); RBC Distribution Width 13.3 % (11.7-14.6); White Blood Cell Count 8.02 k/cumm (4.4-10.8)
[2019-07-24 07:21] LABS: Anion Gap 10.1 mmol/L (3-11); BUN 17 mg/dL (7-18); CO2 25.9 mmol/L (21.0-32.0); CREATININE 1.02 mg/dL (0.55-1.02); Calcium 8.2 mg/dL (8.5-10.1); Chloride 105 mmol/L (98-107); Estimated GFR 52.69 (mL/min/1.73m2); Glucose 174 mg/dL (70-100); Magnesium 1.4 mg/dL (1.8-2.4); Potassium 3.6 mmol/L (3.5-5.1); Sodium 141 mmol/L (136-145)
[2019-07-24 07:29] LABS: Diff Comment Agrees w/ Instrument; RBC Morphology Normal
[2019-07-24] MEDS: Mometasone 220 MCG 14 DOSE INHALER 2 PUFF IH ×2 (07:39→20:14)
--- NOTE | 2019-07-24 08:28 | PDOC.CMPRO ---
Care Management Progress Note S/O: Francisca remains pleasant in interaction and reports she enjoys visiting with the staff and feels well cared for. She reports having an appointment for outpatient MPI with Cardiology on 07/26/19. CM continues to follow. A: 74 year old female admitted to [facility] 07/18/19 for NAPOLEON, Nephrolithiasis, MODI P: Francisca will remain at [facility] for continued monitoring while awaiting blood culture results. Francisca will return home once medically cleared with no additional services anticipated at this time. She will transport home via private vehicle with a friend when ready. Anticipate filling prescription for FWW upon discharge, per MD. CM continues to follow.
[2019-07-24 09:17] LABS: Procalcitonin 0.2 ng/mL
[2019-07-24] MEDS: Insulin Aspart 300 UNITS/3 ML PEN SC ×4 (09:33→22:21)
[2019-07-24] MEDS: Fluticasone NASAL SPRAY 16 GM BTL NS ×2 (09:34→20:15)
[2019-07-24] MEDS: Verapamil 80 MG TAB 40 MG PO ×3 (09:35→20:13)
[2019-07-24] MEDS: Aspirin 325 MG TAB PO (09:35)
[2019-07-24] MEDS: Esomeprazole 40 MG CAPCR PO ×2 (09:36→20:13)
[2019-07-24] MEDS: Ascorbic Acid 500 MG TAB 1000 MG PO (09:36)
[2019-07-24] MEDS: predniSONE 5 MG TAB PO (09:36)
[2019-07-24] MEDS: MAGNESIUM SULFATE 4 GM/100 ML BAG IVPB (09:46)
--- NOTE | 2019-07-24 10:34 | PT.INTREAT ---
Date of service: 07/23/19 Time of Service: 10:00 PT Notes Inpatient Physical Therapy Treatment Note [facility] Date: 07/23/19 PRECAUTIONS: Fall, standard, Activity as tolerated SUBJECTIVE: Stated she is still not feeling very well, but willing to do some walking. OBJECTIVE: PAIN: No complaints of any new discomfort. BED MOBILITY/TRANSFERS Sit-stand: SBA Stand-sit: SBA GAIT Assistive Device: FWW Weight bearing: FWB Assist: SBA Distance: 100ft x 2 STAIRS:Up / down 6 4 inch steps with 1 handrail and cane with CGA of one. ASSESSMENT: Tolerated today's PT session well. PLAN: Try 6 inch steps tomorrow if able to tolerate. TREATMENT CODE/TIME: 9750x2, 10:00 to 10:25
--- NOTE | 2019-07-24 10:44 | PT.INTREAT ---
Date of service: 07/24/19 Time of Service: 09:00 PT Notes Inpatient Physical Therapy Treatment Note [facility] Date: 07/24/19 PRECAUTIONS:Fall, Standard and Activity as tolerated SUBJECTIVE: Complained of left dorsal region of foot being painful in the night and still sore today. Had this occur a couple weeks ago also. Noted slight swelling and slight discoloration. Complained of feeling dizzy when doing stairs and with ambulation back to room. OBJECTIVE: PAIN: Severe pain in the top of left foot last night and still sore today, but tolerable. BED MOBILITY/TRANSFERS Sit-stand: SBA Stand-sit: SBA GAIT Assistive Device: FWW Weight bearing: FWB Assist: SBA Distance: 100ft and 80ft VITALS: 148/87 while dizzy, 85b/m and O2 of 98%. Nursing staff was made aware of foot pain /dizziness with ambulation and patient's concern of a possible blood clot. He came in PT office to examine foot and check vitals after complaints of dizziness with stair ambulation. Patient had not yet had her BP meds today. STAIRS: Up 3 4 inch steps and down 2 6 inch steps with step to gait pattern and handrail/ cane with CGA of 1. ASSESSMENT: Tolerated stair ambulation fair despite complaints of dizziness. Did discontinue this activity due to dizziness complaints. PLAN: Continue to focus on improved functional mobility as patient is able to tolerate. TREATMENT CODE/TIME: 18104t2, 9:00 to 9:30
[2019-07-24] MEDS: cefTRIAXone 1 GM/50 ML BAG IVPB (14:45)
[2019-07-24] MEDS: Normal Saline Flush 10 ML SYR IVP ×2 (14:51→20:32)
--- NOTE | 2019-07-24 15:41 | W.PM.PROGNOT ---
Date of Service Date of service: 07/24/19 Time of Service: 15:41 Assessment and Plan Assessment and plan (1) Blood bacterial culture positive: Status: Acute Assessment and plan: 4/4 bottles positive for Gardenella Vaginalis, which is most unusual, but has to be treated as atypical infections are possible in an immunocompromised host. Start metronidazole. D/c ceftriaxone (day 3). No need for DELANEY - Gardenella does not cause endocarditis. . (2) Leukocytosis: Status: Resolved Assessment and plan: As above. (3) NAPOLEON (acute kidney injury): Status: Acute Assessment and plan: Improving. s/p cysto/stent for obstructing stone on 07/21/19, also with history of neurogenic bladder. Hold patient's MARGOTH inhibitor, avoid nephrotoxins, and renally dose medications when needed. (4) High anion gap metabolic acidosis: Status: Resolved Assessment and plan: Likely combination of dehydration and acute early renal failure. Resolved. (5) Nephrolithiasis: Status: Chronic Assessment and plan: S/p Cystoscopy with ureteral stent at [facility] on 07/21 - will require Urology follow-up upon discharge. Will need lithotripsy. (6) Anemia: Status: Chronic Assessment and plan: Acute component in the setting of gross hematuria, acute illness, and hydration. No evidence for active bleeding now. Continue to monitor H/H (7) CAD (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 disease): Status: None Assessment and plan: History of PCI to the LAD in 2007. No ACS on this admission. - Will need a nuclear stress test for workup of MODI. Will not need DELANEY. - CT without acute pathology. Patient has a history of Asthma. Will have to have pulmonary follow up if stress test negative. - Continue home regimen of aspirin, high potency statin. Patient is also on verapamil and not on beta-candice therapy. Qualifiers: Coronary Disease-Associated Artery/Lesion type: [place] artery [place] vs. transplanted heart: [place] heart Associated angina: without angina Qualified Code(s): I25.10 - Atherosclerotic heart disease of [place] 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 without angina pectoris (8) PSVT (paroxysmal supraventricular tachycardia): Status: None Assessment and plan: History of PSVT's, but holding digoxin due to borderline low HR. Continue verapamil. May resume digoxin tomorrow depending on HR overnight. (9) Diabetes mellitus: Status: Chronic Assessment and plan: Resume basal insulin at night; hold metformin. Will maintain on a sliding scale coverage, and ensure ADA diet. (10) Psoriatic arthritis: Status: Acute Assessment and plan: On recently initiated Humira and low dose daily prednisone. Received stress dosed steroids. Continue daily prednisone. (11) DVT prophylaxis: Status: Acute Assessment and plan: SC heparin. Subjective Subjective Interval history since last seen: Feels better today. Complains of slight dizziness while walking today, but it resolved quickly. Denies chest pain, shortness of breath, nausea, vomiting. Her blood culture results came back with Gardenella Vaginalis. The results were discussed with Dr Townsend at [facility] who felt that Gardenella vaginalis bacteremia is essentially unprecedented, but in an immunocompromised host, transient bacteremia is possible. She recommended 1 week of metronidazole, which can be given PO due to its good bioavailability. The patient is concerned that she might develop a reaction to it, because she has so many allergies, so we agreed to trial it here tonight and, if she tolerates it, for her to go home with it. The patient is concerned about her sugars in 200's and would like to resume levemir. Exam Narrative Exam Narrative: General: very pleasant pale elderly female, A&Ox3, sitting comfortably in a chair, looks better today HEENT: EOMI, MMM Heart: RRR, m/r/g Lungs: CTAB GI: abdomen is soft, nontender, nondistended Extremities: +1 edema BLE's, no c/c Objective Objective Clinical Data: Abnormal lab results 07/24/19 07/24/19 Range/Units 06:46 06:46 RBC 3.32 L (4.00-5.20) m/cumm Hgb 9.6 L (12.0-15.5) g/dL Hct 30.1 L (36.0-46.0) % MCHC 31.9 L (32.0-36.0) g/dL Glucose 174 H (70-100) mg/dL Calcium 8.2 L (8.5-10.1) mg/dL Magnesium 1.4 L (1.8-2.4) mg/dL Vital Signs Temperature 36.9 C 07/24/19 11:20 Temperature Source Tympanic 07/24/19 11:20 Pulse 60 07/24/19 11:20 Pulse Rhythm Regular 07/24/19 06:15 Pulse Strength Normal 07/18/19 16:16 Pulse 88 07/18/19 17:01 Respiratory Rate 17 07/24/19 11:20 Respiratory Effort 07/24/19 10:01 Respiratory Depth Normal 07/24/19 10:01 Respiratory Pattern Normal 07/24/19 10:01 Blood Pressure 164/76 H 07/24/19 11:20 Blood Pressure Mean 71 07/18/19 17:01 Pulse Oximetry 96 07/24/19 11:20 Oxygen Delivery Method Room Air 07/24/19 11:20 Oxygen Flow Rate 0 07/24/19 11:20 Fraction of Inspired Oxygen (FIO2) 21 07/23/19 19:50 Pain Level 3 07/24/19 11:20 Comment 07/23/19 07:36 Intake & Output 07/23/19 07/24/19 07/24/19 23:59 11:59 23:59 Intake Total 780 / 830 300 / 890 590 / 890 Output Total 800 / 1000 768 / 768 Balance -20 / -170 -468 / 122 590 / 122 Weight 85.8 kg Intake: IV 50 / 100 100 / 100 Oral 730 / 730 300 / 790 490 / 790 Output: Urine 800 / 1000 700 / 700 Post Void Residual 68 / 68 Other: Urine Color Dark [place] Yellow Urine Appearance Clear Clear Urine Odor None Comment patient was supine Pt voided into toilet and flushed. Hat placed in toilet, pt asked to void into hat, pt agreed to do so. Stool Size Moderate Stool Characteristics Soft Liquid Voiding Methods Toilet Toilet Laboratory Results WBC 8.02 k/cumm (4.4-10.8) 07/24/19 06:46 RBC 3.32 m/cumm (4.00-5.20) L 07/24/19 06:46 Hgb 9.6 g/dL (12.0-15.5) L 07/24/19 06:46 Hct 30.1 % (36.0-46.0) L 07/24/19 06:46 MCV 90.7 fL (80-95) 07/24/19 06:46 MCH 28.9 pg (27.0-33.0) 07/24/19 06:46 MCHC 31.9 g/dL (32.0-36.0) L 07/24/19 06:46 RDW 13.3 % (11.7-14.6) 07/24/19 06:46 Plt Count 239 x1000/uL (130-400) 07/24/19 06:46 MPV 10.5 fL (8.0-11.0) 07/24/19 06:46 Immature Gran % 2.5 07/24/19 06:46 Neutrophils % 51.6 07/24/19 06:46 Band Neutrophils % 1.0 % 07/22/19 06:35 Lymphocytes % 36.7 07/24/19 06:46 Atypical Lymphs % 2 07/23/19 06:38 Monocytes % 7.0 07/24/19 06:46 Eosinophils % 2.0 07/24/19 06:46 Basophils % 0.2 07/24/19 06:46 Metamyelocytes % 1.0 % 07/22/19 06:35 Myelocytes % 0.0 % 07/22/19 06:35 Promyelocytes % 0 % 07/22/19 06:35 Absolute Neutrophils 4.14 k/cumm (1.2-6.7) 07/24/19 06:46 Absolute Lymphocytes 2.94 k/cumm (1.2-3.4) 07/24/19 06:46 Absolute Monocytes 0.56 k/cumm (0.11-0.7) 07/24/19 06:46 Absolute Eosinophils 0.16 k/cumm (0.0-0.7) 07/24/19 06:46 Absolute Basophils 0.02 k/cumm (0.0-0.2) 07/24/19 06:46 Differential Comment Agrees w/ instrument 07/24/19 06:46 RBC Morphology Normal 07/24/19 06:46 Polychromasia Present 07/21/19 06:20 Hypochromasia 1+ 07/20/19 06:18 Poikilocytosis 1+ 07/22/19 06:35 Basophilic Stippling Present 07/21/19 06:20 Anisocytosis 1+ 07/20/19 06:18 Microcytosis 1+ 07/23/19 06:38 PT 10.9 sec (9.3-11.0) 07/18/19 13:10 INR 1.1 (0.9-1.1) 07/18/19 13:10 APTT 28.9 sec (21.0-31.4) 07/18/19 13:10 D-Dimer > 7500 ng/mlFEU (<500) H 07/18/19 13:10 Sample Site Cancelled 07/18/19 15:07 pCO2 Cancelled 07/18/19 15:07 pO2 Cancelled 07/18/19 15:07 O2 Saturation Cancelled 07/18/19 15:07 ABG pH Cancelled 07/18/19 15:07 ABG HCO3 Cancelled 07/18/19 15:07 ABG Total CO2 Cancelled 07/18/19 15:07 ABG Base Excess Cancelled 07/18/19 15:07 VBG pH 7.39 (7.32-7.43) 07/18/19 15:06 VBG pCO2 33 mm/Hg (34-47) L 07/18/19 15:06 VBG pO2 42 mm/Hg (28-44) 07/18/19 15:06 VBG HCO3 20 mmol/L (22-28) L 07/18/19 15:06 VBG Total CO2 19 mmol/L (22-29) L 07/18/19 15:06 VBG O2 Saturation 76 % (70-80) 07/18/19 15:06 VBG Base Excess mmol/L (-3-3) 07/18/19 15:06 Oxygen Liter Flow Cancelled 07/18/19 15:07 FiO2 Cancelled 07/18/19 15:07 Sodium 141 mmol/L (136-145) 07/24/19 06:46 Potassium 3.6 mmol/L (3.5-5.1) 07/24/19 06:46 Chloride 105 mmol/L (98-107) 07/24/19 06:46 Carbon Dioxide 25.9 mmol/L (21.0-32.0) 07/24/19 06:46 Anion Gap 10.1 mmol/L (3-11) 07/24/19 06:46 BUN 17 mg/dL (7-18) 07/24/19 06:46 Creatinine 1.02 mg/dL (0.55-1.02) 07/24/19 06:46 Estimated GFR/1.73 m2 52.69 (mL/min/1.73m2) 07/24/19 06:46 Glucose 174 mg/dL (70-100) H 07/24/19 06:46 POC Glucose Cancelled 07/18/19 15:57 Lactate 1.1 mmol/L (0.6-1.4) 07/18/19 14:33 Calcium 8.2 mg/dL (8.5-10.1) L 07/24/19 06:46 Magnesium 1.4 mg/dL (1.8-2.4) L 07/24/19 06:46 Total Bilirubin 0.5 mg/dL (0.2-1.0) 07/18/19 13:10 AST 31 U/L (15-37) 07/18/19 13:10 ALT 31 U/L (14-59) 07/18/19 13:10 Alkaline Phosphatase 66 U/L (46-116) 07/18/19 13:10 Troponin I < 0.05 ng/mL (0.00-0.06) 07/19/19 06:15 NT-Pro-B Natriuret Pep 899 pg/mL (-299) H 07/18/19 13:10 Total Protein 7.0 g/dL (6.4-8.2) 07/18/19 13:10 Albumin 2.8 g/dL (3.4-5.0) L 07/18/19 13:10 Procalcitonin 0.2 ng/mL 07/24/19 06:46 Urine Color Yellow (Yellow) 07/22/19 Unknown Urine Clarity Sl cloudy (Clear) 07/22/19 Unknown Urine pH 5.5 (5-8) 07/22/19 Unknown Ur Specific [place] 1.010 (1.005-1.025) 07/22/19 Unknown Urine Protein 100 mg/dL (Negative) H 07/22/19 Unknown Urine Ketones Negative mg/dL (Negative) 07/22/19 Unknown Urine Blood Large (Negative) H 07/22/19 Unknown Urine Nitrite Negative (Negative) 07/22/19 Unknown Urine Bilirubin Negative (Negative) 07/22/19 Unknown Urine Urobilinogen 0.2 EU/dL (Up TO 0.2) 07/22/19 Unknown Ur Leukocyte Esterase Small (Negative) H 07/22/19 Unknown Urine RBC >50 (0-2) H 07/22/19 Unknown Urine WBC 20-50 HPF (0-5) 07/22/19 Unknown Ur Epithelial Cells Few HPF (Negative) 07/22/19 Unknown Urine Crystals Negative HPF (Negative) 07/22/19 Unknown Urine Bacteria Moderate HPF (Negative) 07/22/19 Unknown Urine Casts Negative LPF (Negative) 07/22/19 Unknown Urine Mucus Negative (Negative) 07/22/19 Unknown Urine Other Rare renal (Negative) 07/22/19 Unknown Ur Culture Indicated? Yes 07/22/19 Unknown Urine Glucose 250 mg/dL (Negative) H 07/22/19 Unknown Digoxin 1.02 ng/mL (0.90-2.00) 07/23/19 06:38
[2019-07-24] MEDS: metroNIDAZOLE 500 MG TAB PO (16:51)
[2019-07-24] MEDS: Docusate Sodium 100 MG CAP PO (20:14)
--- NOTE | 2019-07-24 21:50 | NUR.NOTE ---
Pt had 3 beat run vtach then 5 beats psvt. Pt reports she was aware when it started and stopped. Had been up to bathroom. Pt states, I need my digoxin back. Reviewed MD notes w/pt about risks digoxin w/her low HR. Pt states she understand. Assured pt that she was in a safe place for her heart to act up as we had her on tele, that the PVC's and PSVT was not damaging to her, and that the MS charge would report it to the night hospitalist when he arrived but unless she became symptomatic, they were not likely to change meds overnight. Pt agreed that waiting for tomorrow and consulting cardiology - she reports seeing one at [facility] and requests they be consulted tomorrow.Nursing Note:
[2019-07-24] MEDS: oxyCODONE 5 MG TAB PO (22:18)
[2019-07-24] MEDS: Rosuvastatin 5 MG TAB PO (22:19)
[2019-07-25] VITALS (10 sets, daily range): BP systolic 149–164; BP diastolic 82–94; PULSE 51–87; RESP 14–18; TEMP 36–36.9; O2SAT 95–98
[2019-07-25] MEDS: metroNIDAZOLE 500 MG TAB PO ×2 (00:15→08:32)
[2019-07-25] MEDS: Heparin 5,000 UNITS/ML VIAL 5000 UNITS SC ×2 (06:02→13:49)
[2019-07-25 06:51] LABS: Abs Immature Grans 0.19 k/cumm (0.0-0.09); Mean Corp. HGB Concentration 32.3 g/dL (32.0-36.0); Mean Corpuscular Hemoglobin 29.3 pg (27.0-33.0); Mean Corpuscular Volume 90.9 fL (80-95); Mean Platelet Volume 10.5 fL (8.0-11.0); RBC 3.41 m/cumm (4.00-5.20); RBC Distribution Width 13.3 % (11.7-14.6); White Blood Cell Count 6.74 k/cumm (4.4-10.8)
[2019-07-25 06:58] LABS: Anion Gap 8.6 mmol/L (3-11); BUN 18 mg/dL (7-18); CO2 28.4 mmol/L (21.0-32.0); CREATININE 0.94 mg/dL (0.55-1.02); Calcium 8.3 mg/dL (8.5-10.1); Chloride 104 mmol/L (98-107); Glucose 176 mg/dL (70-100); Magnesium 1.7 mg/dL (1.8-2.4); Potassium 3.5 mmol/L (3.5-5.1); Sodium 141 mmol/L (136-145)
[2019-07-25 07:21] LABS: Absolute Neutrophil Count 3.77 k/cumm (1.2-6.7)
[2019-07-25 07:22] LABS: Absolute Eosinophil Count 0.07 k/cumm (0.0-0.7); Absolute Lymphocyte Count 2.43 k/cumm (1.2-3.4); Absolute Monocyte Count 0.34 k/cumm (0.11-0.7); Atypical Lymphocytes % 1; Diff Comment Manual Differential
[2019-07-25 07:23] LABS: Platelet Count 263 x1000/uL (130-400); Polychromasia Present
[2019-07-25 07:43] LABS: Procalcitonin 0.1 ng/mL
[2019-07-25] MEDS: Mometasone 220 MCG 14 DOSE INHALER 2 PUFF IH (07:51)
[2019-07-25] MEDS: Fluticasone NASAL SPRAY 16 GM BTL NS (08:32)
[2019-07-25] MEDS: Verapamil 80 MG TAB 40 MG PO ×2 (08:32→13:47)
[2019-07-25] MEDS: predniSONE 5 MG TAB PO (08:32)
[2019-07-25] MEDS: Docusate Sodium 100 MG CAP PO (08:32)
[2019-07-25] MEDS: Ascorbic Acid 500 MG TAB 1000 MG PO (08:33)
[2019-07-25] MEDS: Esomeprazole 40 MG CAPCR PO (08:33)
[2019-07-25] MEDS: Insulin Aspart 300 UNITS/3 ML PEN SC ×2 (08:33→12:18)
[2019-07-25] MEDS: Aspirin 325 MG TAB PO (08:33)
[2019-07-25] MEDS: MAGNESIUM SULFATE 2 GM/50 ML BAG IVPB (08:42)
[2019-07-25] MEDS: Digoxin 0.125 MG TAB 0.0625 MG PO (10:19)
[2019-07-25] MEDS: Normal Saline Flush 10 ML SYR IVP (10:37)
--- NOTE | 2019-07-25 12:38 | PDOC.CMPRO ---
- If Service Date Differs Date of service: 07/25/19 Time of Service: 14:17 Care Management Progress Note S/O: Francisca was sitting up in her chair during the conversation with CM. 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 CM offered reassurance and support. She stated that she is feeling better, and that she has lost 11 pounds since admission. She asked about obtaining a FWW. This is being coordinated by CM. CM continues to follow. A: 74 year old female admitted to [facility] 07/18/19 for NAPOLEON, Nephrolithiasis, MODI P: Francisca was started on a new antibiotic due to bacteremia found in blood cultures and will be monitored overnight. Francisca will return home once medically cleared with no additional services anticipated at this time. She will transport home via private vehicle with a friend when ready. Anticipate filling prescription for FWW upon discharge, per MD. CM continues to follow.
--- NOTE | 2019-07-25 13:45 | PT.INTREAT ---
Date of service: 07/25/19 Time of Service: 13:45 PT Notes Inpatient Physical Therapy Treatment Note [facility] Date: 07/25/19 PRECAUTIONS: Fall SUBJECTIVE: Francisca reports that she is feeling fatigued today. She also reports that she has been transferring independently to the bathroom and otherwise within her room, she feels safe doing so. OBJECTIVE: PAIN: No complaints of pain BED MOBILITY/TRANSFERS Sit-stand: I Stand-sit: I GAIT: Patient refused further gait training due to fatigue Assistive Device: FWW Weight bearing: Full Assist: I Distance: 15' x2 THEREX: Patient completed ankle pumps, LAQ, hip flexion, hip abduction, and chair push-ups in a seated position, as per flow sheet. Patient was issued 3# hand weights and 3# ankle weights for independent completion of HEP. TOILETING: Patient toileted independently ASSESSMENT: Patient was able to demonstrate independence with exercise program. Patient would benefit from continued gait training for improved activity tolerance. PLAN: Continue with PTs POC TREATMENT CODE/TIME: 20 minutes; 25942
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
== END 2019-07-25 17:02 | disposition home or self-care (01) | DRG 683 ==
LOC: ER 14:22 → MS 17:52
PROVIDERS: Admitting Provider Internal Medicine; Emergency Provider Physician Assistant; PCP Family Medicine; Visit Provider Internal Medicine
DX: N17.9 Acute kidney failure, unspecified (principal); R78.81 Bacteremia; E87.2 Acidosis; I47.1 Supraventricular tachycardia; R06.09 Other forms of dyspnea; N13.2 Hydronephrosis with renal and ureteral calculous obstruction; L40.50 Arthropathic psoriasis, unspecified; Z79.899 Other long term (current) drug therapy; Z79.52 Long term (current) use of systemic steroids; E11.9 Type 2 diabetes mellitus without complications; Z79.4 Long term (current) use of insulin; I25.10 Atherosclerotic heart disease of native 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 without angina pectoris; B96.89 Other specified bacterial agents as the cause of diseases classified elsewhere; R31.0 Gross hematuria; D64.9 Anemia, unspecified; E83.42 Hypomagnesemia; D72.829 Elevated white blood cell count, unspecified; E86.0 Dehydration; E87.8 Other disorders of electrolyte and fluid balance, not elsewhere classified; Z71.3 Dietary counseling and surveillance
CPT/HCPCS: 36410; 36415; 36416; 52332; 71250; 76770; 80048; 80053; 82805; 82962; 84145; 87040; 87077; 93306; 94640; 96365; 96367; 96368; 97110; 97162; 97530; 99222; 99223; 99232; 99233; 99239; 99253; 99285; 71046; 74176; 80162; 81003; 81015; 83605; 83735; 83880; 84484; 85025; 85379; 85610; 85730; 87086; 99284; A0425; A0428; J0696; J1644; J1720; J3475; J3480; J3490; J7512

== ENCOUNTER 2019-07-19 13:26 | Outpatient (RCR) | payer SELFPAY ==
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
== END 2019-08-18 23:59 | disposition home or self-care (01) ==
LOC: CR 13:26
PROVIDERS: PCP Family Medicine; Visit Provider Family Medicine
DX: Z51.89 Encounter for other specified aftercare (principal)

== ENCOUNTER 2019-08-02 00:29 | Outpatient (CLI) | payer MEDICARE, MEDICAID, SELFPAY ==
--- NOTE | 2019-08-02 11:15 | DI.NM_ITS ---
APPROVED REPORT Exam: Exercise Treadmill Patient Location: Out-Patient Stress Nurse: Philomena Coelho RN Baseline Rhythm: NSR, RBBB BMI: 32.91 Indications: Dyspnea on exertion Medical History Medical History: CAD s/p stent, HTN, Hyperlipidemia, RBBB, SOB, Diabetes, COPD, Arrhythmia, PSVT Cardiac Medications: Aspirin, Verapamil, Rosuvastatin/ Crestor, Lisinopril, Digoxin Allergies: Clindamycin, diphenhydramine, epinephrine, citalopram, codeine, ether, iodinated contranst media, iodine, etanercept, penicillins, sulfa, h2 inhibitors, ephedrine, methotrexate, morphine, bet a-adrenergic agents, escitalopram, fluoxetine, montelukast sodium, NSAIDS. Cardiac Risk Factors: HTN, Hyperlipidemia, DM, SOB, CVD, COPD Previous Cardiac Procedures: PCI w/ stent to LAD Pretest Chest Pain Characteristics: Dyspnea Exercise History: Physically active Physical Disabilities: Legs, Back, Neck Lung Sounds: Clear to auscultation, diminished Heart Sounds: Regular Stress Test Details Test: Exercise stress testing was performed using a Tramaine protocol. Nuclear Acquisition: Rest Tc-99m/Stress Tc-99m 1 day Rest Isotope: Tc-99m Sestamibi. Dose: 10.7 Date: 08/02/2019 Injection Time: 1115 Stress Isotope: Tc-99m Sestamibi. Dose: 32.7 Date: 08/02/2019 Injection Time: 1300 HR Resting HR: 85 bpm Max Heart Rate (APMHR): 144 bpm Resting HR Supine: 85 bpm Target HR (85% APMHR): 122 bpm Resting HR Standin bpm Max HR Achieved: 136 bpm % of APMHR: 94 Recovery HR: 90 bpm HR response to stress: Normal HR response to stress BP Resting BP: 128/82 mmHg Resting BP Supine: 128/82 mmHg Resting BP Standin/88 mmHg Max BP: 160/88 mmHg Recovery BP: 152/90 mmHg BP response to stress: Normal blood pressure response to stress. ECG Resting ECG: Sinus Rhythm, RBBB Ectopy: none Stress ECG: Sinus Tachycardia, RBBB ST Change: Upsloping ST depression Arrhythmia: None Recovery ECG: Sinus Rhythm, RBBB Recovery ST Change: Horizontal ST depression Recovery Arrhythmia: None Clinical Time of Stop for Tramaine: 1:52 Reason for Termination: Fatigue, Leg pain/Claudication Stress Symptoms: Dyspnea, Leg Fatigue Exercise duration: 1 min52 sec Highest Stage Achieved: Stage 1: 1.7 mph at 10% grade. Exercise capacity: 4.3 METs Functional Capacity: Markedly diminished capacity Scale: Active Stress ECG Conclusion 1. The patient demonstrated poor exercise capacity. 2. There were 1mm ST depressions in lead II during stage 2 of exercise which resolved in recovery 3. There was no evidence of ischemia on the ECG portion of the exam Test Summary Supine 85 128/52 98 standing 104 160/88 1 1:52 10 1.7 135 4.6 138/92 98 I MIN RECOVERY 130 152/80 98 3 MIN RECOVERY 104 154/90 6 MIN RECOVERY 90 152/90 MPI Conclusion There is a small partially reversible defect in the basal septum which likely represents diaphragmati c artifact There is no evidence of significant ischemia in the imaging portion of this exam This represents a normal stress test.
== END 2019-08-02 00:49 ==
PROVIDERS: PCP Family Medicine; Visit Provider Internal Medicine Cardiovascular Disease
DX: R06.02 Shortness of breath (principal); R06.09 Other forms of dyspnea; I25.10 Atherosclerotic heart disease of native 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 without angina pectoris; Z95.5 Presence of coronary angioplasty implant and graft; E11.9 Type 2 diabetes mellitus without complications; I10 Essential (primary) hypertension; E78.5 Hyperlipidemia, unspecified
CPT/HCPCS: 78452; 93017

== ENCOUNTER 2019-08-02 01:34 | Outpatient (CLI) | payer MEDICARE, MEDICAID, SELFPAY | END 2019-08-02 01:54 | PROVIDERS: PCP Family Medicine; Visit Provider Internal Medicine Cardiovascular Disease | DX: R06.09 Other forms of dyspnea (principal); I25.10 Atherosclerotic heart disease of native 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 without angina pectoris; R06.02 Shortness of breath; E11.9 Type 2 diabetes mellitus without complications | CPT/HCPCS: 93017 ==

== ENCOUNTER 2019-08-10 09:45 | Outpatient (REF) | payer MEDICARE, MEDICAID, SELFPAY ==
[2019-08-11 18:34] LABS: Source: Passed Stone
== END 2019-08-10 10:05 ==
LOC: NCHCN 09:45
PROVIDERS: PCP Family Medicine; Visit Provider Family Medicine
DX: Z87.442 Personal history of urinary calculi (principal)
CPT/HCPCS: 82365

== ENCOUNTER → 2019-08-18 12:38 | Outpatient (BNVA) | payer MEDICARE, MEDICAID, SELFPAY | PROVIDERS: PCP Family Medicine; Referring Provider Family Medicine; Visit Provider Internal Medicine Cardiovascular Disease | DX: I25.10 Atherosclerotic heart disease of native 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 without angina pectoris (principal); I10 Essential (primary) hypertension; E11.42 Type 2 diabetes mellitus with diabetic polyneuropathy; Z79.4 Long term (current) use of insulin; J44.9 Chronic obstructive pulmonary disease, unspecified; Z87.891 Personal history of nicotine dependence | CPT/HCPCS: 99205; 99215 ==

== ENCOUNTER 2019-08-25 10:00 | Outpatient (RCR) | payer SELFPAY | END 2019-09-17 23:59 | disposition home or self-care (01) | LOC: CR 10:00 | PROVIDERS: PCP Family Medicine; Visit Provider Family Medicine | DX: Z51.89 Encounter for other specified aftercare (principal) ==

== ENCOUNTER 2019-09-20 09:38 | Outpatient (CLI) | payer MEDICARE, MEDICAID, SELFPAY ==
[2019-09-20 10:08] LABS: Hemoglobin A1C 7.9 % (4.5-6.2)
[2019-09-20 11:04] LABS: Anion Gap 11.7 mmol/L (3-11); BUN 27 mg/dL (7-18); CO2 25.3 mmol/L (21.0-32.0); CREATININE 0.81 mg/dL (0.55-1.02); Calcium 9.3 mg/dL (8.5-10.1); Chloride 105 mmol/L (98-107); Glucose 184 mg/dL (74-106); Potassium 4.2 mmol/L (3.5-5.1); Sodium 142 mmol/L (136-145)
[2019-09-21 15:34] LABS: Fructosamine 297 mcmol/L (200 - 285)
== END 2019-09-20 09:58 ==
PROVIDERS: PCP Family Medicine; Visit Provider Internal Medicine Endocrinology, Diabetes & Metabolism
DX: E11.65 Type 2 diabetes mellitus with hyperglycemia (principal)
CPT/HCPCS: 36415; 80048; 82985; 83036

== ENCOUNTER 2019-10-06 10:00 | Outpatient (RCR) | payer SELFPAY | END 2019-10-18 23:59 | disposition home or self-care (01) | LOC: CR 10:00 | PROVIDERS: PCP Family Medicine; Visit Provider Family Medicine | DX: Z51.89 Encounter for other specified aftercare (principal) ==

== ENCOUNTER 2019-10-07 12:34 | Outpatient (REF) | payer MEDICARE, MEDICAID, SELFPAY ==
[2019-10-07 19:15] LABS: Anion Gap 8.5 mmol/L (3-11); BUN 22 mg/dL (7-18); CO2 28.5 mmol/L (21.0-32.0); CREATININE 0.92 mg/dL (0.55-1.02); Chloride 102 mmol/L (98-107); Estimated GFR 59.35 (mL/min/1.73m2); Glucose 175 mg/dL (74-106); Potassium 4.4 mmol/L (3.5-5.1); Sodium 139 mmol/L (136-145)
[2019-10-07 19:20] LABS: Abs Immature Grans 0.05 k/cumm (0.0-0.09); Absolute Basophil Count 0.02 k/cumm (0.0-0.2); Absolute Eosinophil Count 0.12 k/cumm (0.0-0.7); Absolute Lymphocyte Count 1.47 k/cumm (1.2-3.4); Absolute Monocyte Count 0.57 k/cumm (0.11-0.7); Absolute Neutrophil Count 8.97 k/cumm (1.2-6.7); Basophils % 0.2; Eosinophils % 1.1; HGB 12.1 g/dL (12.0-15.5); Immature Grans % 0.4; Lymphocytes % 13.1; Mean Corpuscular Volume 93.5 fL (80-95); Monocytes % 5.1; Neutrophils % 80.1; Platelet Count 253 x1000/uL (130-400); RBC 4.17 m/cumm (4.00-5.20); RBC Distribution Width 13.1 % (11.7-14.6)
== END 2019-10-07 12:54 ==
LOC: NCHCN 12:34
PROVIDERS: PCP Family Medicine; Visit Provider Family Medicine
DX: E11.9 Type 2 diabetes mellitus without complications (principal); D64.9 Anemia, unspecified; N39.0 Urinary tract infection, site not specified; Z87.442 Personal history of urinary calculi
CPT/HCPCS: 80048; 85025

== ENCOUNTER 2019-10-27 10:00 | Outpatient (RCR) | payer SELFPAY | END 2019-11-18 23:59 | disposition home or self-care (01) | LOC: CR 10:00 | PROVIDERS: PCP Family Medicine; Visit Provider Family Medicine | DX: Z51.89 Encounter for other specified aftercare (principal) ==

== ENCOUNTER 2019-11-23 02:07 | Outpatient (CLI) | payer MEDICARE, MEDICAID, SELFPAY ==
--- NOTE | 2019-11-23 11:00 | DI.RAD_ITS ---
EXAM: XR CERVICAL SP COMP W FLEX/EXT INDICATION: ACUTE NECK PAIN, M54.2. COMPARISON: CERVICAL SP. LIMITED (TRAUMA) from 11/22/2008 TECHNIQUE: 2D digital imaging was performed. FINDINGS: The odontoid appears intact. The lateral masses are well aligned. There is disc space narrowing at C5-6 and C6-C7. There are degenerative changes of the facets throughout the cervical spine. Narrowi ng of the neural foramen is seen bilaterally at C5-6 and C6-C7. No acute fractures or subluxations a re present. No subluxation is seen with flexion or extension. Prevertebral soft tissues are unremar kable. IMPRESSION: Degenerative changes of the cervical spine.
--- NOTE | 2019-11-23 11:19 | DI.RAD_ITS ---
EXAM: XR SHOULDER LT COMPLETE 2+V INDICATION: LT SHOULDER PAIN, M25.512. COMPARISON: LEFT SHOULDER COMPLETE from 04/30/2012 TECHNIQUE: 2D digital imaging was performed. FINDINGS: There are mild degenerative changes seen at the acromioclavicular joint. The glenohumeral joint appe ars well maintained. No acute fracture or dislocation is present. The soft tissues are unremarkable .
--- NOTE | 2019-11-23 11:26 | DI.RAD_ITS ---
EXAM: XR FOREARM LT INDICATION: LT ARM PAIN. COMPARISON: No exams were available for comparison TECHNIQUE: 2D digital imaging was performed. FINDINGS: There are degenerative changes seen at the elbow. There are tiny osseous fragments seen anteriorly i n the elbow joint. These may represent loose bodies. No acute fracture or dislocation is present.
== END 2019-11-23 02:27 ==
PROVIDERS: PCP Family Medicine; Visit Provider Family Medicine
DX: M79.602 Pain in left arm (principal); M19.022 Primary osteoarthritis, left elbow; M24.022 Loose body in left elbow; M25.512 Pain in left shoulder; M19.012 Primary osteoarthritis, left shoulder; M54.2 Cervicalgia; M50.322 Other cervical disc degeneration at C5-C6 level; M50.323 Other cervical disc degeneration at C6-C7 level
CPT/HCPCS: 72052; 73030; 73090

== ENCOUNTER 2019-12-13 09:31 | Outpatient (CLI) | payer MEDICARE, MEDICAID, SELFPAY ==
--- NOTE | 2019-12-13 10:50 | NS.NUTBLAN_ITS ---
DESCRIPTION: Francisca Kong presents for medical nutrition therapy for high uric acid as evidenced by kidney stones. She wishes to learn foods to promote low uric acid intake. Francisca is well known here for diabetes self management eating carbohydrate controlled meal plan where she eats yogurt for breakfast; 1/2 sandwich for lunch; meat, starch and vegetable for supper. She does like meat and it fills her as a person with diabetes. States she is drinking 3 quarts of water daily. INTERVENTION: Reviewed MNT handout focused on nutritional treatment for kidney stones. She voices understanding. PLAN: She will limit meat to 4 oz daily and avoid all foods on the 'high' uric acid food list. MNT 1 unit for 25 minute visit.
== END 2019-12-13 09:51 ==
PROVIDERS: PCP Family Medicine; Visit Provider Dietitian, Registered
DX: N20.0 Calculus of kidney (principal); Z71.3 Dietary counseling and surveillance
CPT/HCPCS: 97802

== ENCOUNTER 2019-12-13 10:00 | Outpatient (RCR) | payer SELFPAY | END 2019-12-17 23:59 | disposition home or self-care (01) | LOC: CR 10:00 | PROVIDERS: PCP Family Medicine; Visit Provider Family Medicine | DX: Z51.89 Encounter for other specified aftercare (principal) ==

== ENCOUNTER 2019-12-18 03:38 | Outpatient (RCR) | payer SELFPAY | END 2020-01-17 23:59 | disposition home or self-care (01) | LOC: CR 03:38 | PROVIDERS: PCP Family Medicine; Visit Provider Family Medicine | DX: Z51.89 Encounter for other specified aftercare (principal) ==

== ENCOUNTER 2019-12-30 22:02 | Outpatient (REF) | payer MEDICARE, MEDICAID, SELFPAY ==
[2019-12-30 19:24] LABS: HCT 39.1 % (36.0-46.0); HGB 12.2 g/dL (12.0-15.5); Mean Corp. HGB Concentration 31.2 g/dL (32.0-36.0); Mean Corpuscular Hemoglobin 28.4 pg (27.0-33.0); Mean Corpuscular Volume 90.9 fL (80-95); Mean Platelet Volume 11.1 fL (8.0-11.0); Platelet Count 240 x1000/uL (130-400); RBC Distribution Width 13.9 % (11.7-14.6); White Blood Cell Count 8.85 k/cumm (4.4-10.8)
[2019-12-30 19:28] LABS: ALT 25 U/L (14-59); AST 15 U/L (15-37); Albumin 3.8 g/dL (3.4-5.0); Alkaline Phosphatase 74 U/L (46-116); Anion Gap 9.7 mmol/L (3-11); BUN 25 mg/dL (7-18); Bilirubin, Total 0.3 mg/dL (0.2-1.0); CO2 27.3 mmol/L (21.0-32.0); CREATININE 0.94 mg/dL (0.55-1.02); Calcium 8.6 mg/dL (8.5-10.1); Chloride 103 mmol/L (98-107); Glucose 180 mg/dL (74-106); Potassium 4.5 mmol/L (3.5-5.1); Sodium 140 mmol/L (136-145); Total Protein 6.8 g/dL (6.4-8.2)
[2019-12-30 20:08] LABS: Hemoglobin A1C 7.8 % (3.8-5.6)
== END 2019-12-30 22:22 ==
LOC: NCHCN 22:02
PROVIDERS: PCP Family Medicine; Visit Provider Family Medicine
DX: E11.9 Type 2 diabetes mellitus without complications (principal); D64.9 Anemia, unspecified; I10 Essential (primary) hypertension; E78.5 Hyperlipidemia, unspecified; Z79.4 Long term (current) use of insulin
CPT/HCPCS: 80053; 85027; 83036

== ENCOUNTER → 2020-02-07 10:48 | Outpatient (BNVA) | payer MEDICARE, MEDICAID, SELFPAY | PROVIDERS: PCP Family Medicine; Referring Provider Family Medicine; Visit Provider Internal Medicine Cardiovascular Disease | DX: I47.1 Supraventricular tachycardia (principal); I25.10 Atherosclerotic heart disease of native 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 without angina pectoris; E11.65 Type 2 diabetes mellitus with hyperglycemia; Z79.4 Long term (current) use of insulin; I10 Essential (primary) hypertension | CPT/HCPCS: 99214; 99443 ==

== ENCOUNTER 2020-02-24 13:13 | Outpatient (REF) | payer MEDICARE, MEDICAID, SELFPAY ==
[2020-02-24 19:47] LABS: Digoxin 0.72 ng/mL (0.90-2.00); TSH (W/Ref FT4) 0.94 uIU/mL (0.36-3.74); Vitamin B12 562 pg/mL (193-986)
== END 2020-02-24 13:33 ==
LOC: NCHCN 13:13
PROVIDERS: PCP Family Medicine; Visit Provider Family Medicine
DX: R20.0 Anesthesia of skin (principal); I25.10 Atherosclerotic heart disease of native 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 without angina pectoris; Z51.81 Encounter for therapeutic drug level monitoring; Z79.899 Other long term (current) drug therapy; I10 Essential (primary) hypertension; E11.9 Type 2 diabetes mellitus without complications
CPT/HCPCS: 80162; 82607; 84443

== ENCOUNTER 2020-04-19 19:57 | Outpatient (REF) | payer MEDICARE, MEDICAID, SELFPAY ==
[2020-04-19 18:58] LABS: HCT 40.4 % (36.0-46.0); HGB 12.5 g/dL (12.0-15.5)
[2020-04-19 19:22] LABS: Hemoglobin A1C 7.7 % (3.8-5.6)
[2020-04-19 19:28] LABS: Bilirubin Negative (Negative); Blood Trace-intact (Negative); Clarity Clear (Clear); Glucose Negative (Negative); Ketones Negative (Negative); Leukocyte Esterase Negative (Negative); Nitrite Negative (Negative); Urobilinogen 0.2 EU/dL (Up TO 0.2); pH 7.5 (5-8)
[2020-04-19 19:43] LABS: Bacteria Negative HPF (Negative); C & S Indicated? No; Crystals Negative HPF (Negative); Epithelial Cells Few HPF (Negative); Mucus Negative (Negative); RBC 0-2 HPF (0-2); WBC Negative HPF (0-5)
[2020-04-24 16:25] LABS: Anaplasma phagocytophilum Negative (Negative); B. miyamotoi PCR Negative (Negative); Babesia divergens/MO-1 Negative (Negative); Babesia duncani Negative (Negative); Babesia microti Negative (Negative); Ehrlichia chaffeensis Negative (Negative); Ehrlichia ewingii/canis Negative (Negative); Ehrlichia muris eauclairensis Negative (Negative)
== END 2020-04-19 20:17 ==
LOC: NCHCN 19:57
PROVIDERS: PCP Family Medicine; Visit Provider Family Medicine
DX: E11.9 Type 2 diabetes mellitus without complications (principal); W57.XXXA Bitten or stung by nonvenomous insect and other nonvenomous arthropods, initial encounter; T14.8XXA Other injury of unspecified body region, initial encounter; D64.9 Anemia, unspecified
CPT/HCPCS: 87798; 81003; 81015; 83036; 85014; 85018; 86618

== ENCOUNTER 2020-04-26 15:23 | Outpatient (REF) | payer MEDICARE, MEDICAID, SELFPAY ==
[2020-04-26 19:09] LABS: Anion Gap 10.1 mmol/L (3-11); BUN 28 mg/dL (7-18); CO2 25.9 mmol/L (21.0-32.0); CREATININE 1.15 mg/dL (0.55-1.02); Calcium 9.5 mg/dL (8.5-10.1); Chloride 103 mmol/L (98-107); Estimated GFR 45.76 (mL/min/1.73m2); Glucose 134 mg/dL (74-106); Potassium 4.3 mmol/L (3.5-5.1); Sodium 139 mmol/L (136-145)
[2020-04-26 19:26] LABS: Hemoglobin A1C 7.5 % (3.8-5.6)
[2020-04-28 13:02] LABS: Fructosamine 283 mcmol/L (200 - 285)
[2020-04-30 12:25] LABS: Lyme Ab w Rflx to Lyme Confirm Negative (Negative)
[2020-04-30 17:26] LABS: Anaplasma phagocytophilum Negative (Negative); B. miyamotoi PCR Negative (Negative); Babesia divergens/MO-1 Negative (Negative); Babesia duncani Negative (Negative); Babesia microti Negative (Negative); Ehrlichia chaffeensis Negative (Negative); Ehrlichia ewingii/canis Negative (Negative); Ehrlichia muris eauclairensis Negative (Negative)
== END 2020-04-26 15:43 ==
LOC: NCHCN 15:23
PROVIDERS: Internal Medicine Endocrinology, Diabetes & Metabolism; PCP Family Medicine; Visit Provider Family Medicine
DX: E11.65 Type 2 diabetes mellitus with hyperglycemia (principal); Z79.4 Long term (current) use of insulin; W57.XXXA Bitten or stung by nonvenomous insect and other nonvenomous arthropods, initial encounter; T14.8XXA Other injury of unspecified body region, initial encounter
CPT/HCPCS: 80048; 87798; 82985; 83036; 86618

== ENCOUNTER 2020-05-11 15:50 | Emergency (ER) | payer MEDICARE, MEDICAID, SELFPAY ==
--- NOTE | 2020-05-11 15:45 | RT.EKG_ITS ---
APPROVED REPORT Exam: Resting ECG Patient Location: E HR:96 bpm ECG Measurements Heart Rate 96 AXIS NV 192 P 0 QRSd 136 QRS 56 QT 369 T -5 QTc 467 <Conclusion> Sinus rhythm...normal P axis, V-rate 96 Right bundle branch block..
[2020-05-11 16:00] VITALS: BP 162/83; PULSE 97; RESP 23; TEMP 37.1; O2SAT 100
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
[2020-05-11 16:47] LABS: Abs Immature Grans 0.02 k/cumm (0.0-0.09); Absolute Basophil Count 0.01 k/cumm (0.0-0.2); Absolute Eosinophil Count 0.31 k/cumm (0.0-0.7); Absolute Lymphocyte Count 2.19 k/cumm (1.2-3.4); Absolute Monocyte Count 0.65 k/cumm (0.11-0.7); Absolute Neutrophil Count 6.67 k/cumm (1.2-6.7); Basophils % 0.1; Eosinophils % 3.1; HGB 13.3 g/dL (12.0-15.5); Immature Grans % 0.2 %; Lymphocytes % 22.2; Mean Corp. HGB Concentration 32.4 g/dL (32.0-36.0); Mean Corpuscular Hemoglobin 28.6 pg (27.0-33.0); Mean Corpuscular Volume 88.2 fL (80-95); Monocytes % 6.6; Neutrophils % 67.8; Platelet Count 258 x1000/uL (130-400); RBC 4.65 m/cumm (4.00-5.20); RBC Distribution Width 14.2 % (11.7-14.6); White Blood Cell Count 9.85 k/cumm (4.4-10.8)
[2020-05-11 17:02] VITALS: BP 158/75; PULSE 87; PULSE 90; RESP 18; O2SAT 99
[2020-05-11 17:03] LABS: ALT 30 U/L (14-59); AST 16 U/L (15-37); Albumin 4.1 g/dL (3.4-5.0); Alkaline Phosphatase 73 U/L (46-116); BUN 16 mg/dL (7-18); Bilirubin, Total 0.3 mg/dL (0.2-1.0); CREATININE 0.92 mg/dL (0.55-1.02); Calcium 9.6 mg/dL (8.5-10.1); Chloride 102 mmol/L (98-107); Digoxin 0.71 ng/mL (0.90-2.00); Estimated GFR 59.19 (mL/min/1.73m2); Glucose 124 mg/dL (74-106); Sodium 139 mmol/L (136-145)
[2020-05-11] MEDS: Normal Saline 250 ML 500 ML IV (17:12)
[2020-05-11 17:13] LABS: Magnesium 1.9 mg/dL (1.8-2.4); TSH 0.93 uIU/mL (0.36-3.74)
--- NOTE | 2020-05-11 17:15 | DI.RAD_ITS ---
EXAM: XR CHEST 2V PA LATERAL CLINICAL HISTORY: palpitations TECHNIQUE: 2D digital imaging was performed. COMPARISON: CR XR CHEST 2V PA LATERAL from 07/18/2019 FINDINGS: MEDIASTINUM: There is again seen a large hiatal hernia. HEART: Normal. PULMONARY VASCULATURE: Normal. LUNGS: Clear. PLEURAL SPACE: No pleural effusion or pneumothorax. BONE:Within normal limits for the patient's age. OTHER FINDINGS:Normal. IMPRESSION: No acute pulmonary findings. DATA REPOSITORY: RADIATION DOSE DELIVERED:
[2020-05-11 17:21] LABS: Troponin I < 0.05 ng/mL (<0.06)
[2020-05-11 17:30] VITALS: PULSE 88; RESP 27; O2SAT 97
--- NOTE | 2020-05-11 17:38 | DI.VRAD_ITS ---
PROCEDURE INFORMATION: Exam: XR Chest, 2 Views Exam date and time: 05/11/2020 5:15 PM Age: 75 years old Clinical indication: Other: Palpitations TECHNIQUE: Imaging protocol: XR of the chest Views: 2 views. COMPARISON: CT CHEST WO 07/18/2019 3:44 PM FINDINGS: Lungs: Unremarkable. No consolidation. Pleural space: Unremarkable. No pleural effusion. No pneumothorax. Heart/Mediastinum: Redemonstration of a known large hiatal hernia. Cardiomediastinal silhouette is normal in size and configuration. Bones/joints: No acute abnormality or aggressive osseous lesion. IMPRESSION: Negative for acute thoracic pathology. Dictated and Authenticated by: Brigido Diez MD. Ordering:KRISH Bowen MD
[2020-05-11 17:57] VITALS: BP 154/67; PULSE 84; PULSE 88; RESP 19; O2SAT 97
[2020-05-11 18:01] VITALS: BP 131/83; PULSE 87; PULSE 88; RESP 24; O2SAT 96
--- NOTE | 2020-05-11 18:23 | NUR.NOTE ---
Nursing Note:Referral to pcp faxed
[2020-05-11 18:35] VITALS: BP 131/83; PULSE 87; RESP 20; TEMP 37.1; O2SAT 96
[2020-05-11 18:45] LABS: Bilirubin Negative (Negative); Blood Negative (Negative); Clarity Clear (Clear); Glucose Negative (Negative); Ketones Negative (Negative); Leukocyte Esterase Negative (Negative); Nitrite Negative (Negative); Specific Gravity 1.015 (1.005-1.025); Urobilinogen 0.2 EU/dL (Up TO 0.2); pH 7.5 (5-8)
== END 2020-05-11 18:40 | disposition home or self-care (01) ==
PROVIDERS: Emergency Provider Emergency Medicine; PCP Family Medicine
DX: I47.1 Supraventricular tachycardia (principal); J44.9 Chronic obstructive pulmonary disease, unspecified; Z87.891 Personal history of nicotine dependence; E11.9 Type 2 diabetes mellitus without complications; Z79.4 Long term (current) use of insulin; I10 Essential (primary) hypertension
CPT/HCPCS: 36415; 80053; 93005; 96360; 99285; 71046; 80162; 81003; 83735; 84443; 84484; 85025; 93010; 99284

== ENCOUNTER → 2020-05-14 10:14 | Outpatient (BNVA) | payer MEDICARE, MEDICAID, SELFPAY | PROVIDERS: PCP Family Medicine; Referring Provider Family Medicine; Visit Provider Internal Medicine Cardiovascular Disease | DX: I25.10 Atherosclerotic heart disease of native 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 without angina pectoris (principal); I47.1 Supraventricular tachycardia; I10 Essential (primary) hypertension; J44.9 Chronic obstructive pulmonary disease, unspecified; Z87.891 Personal history of nicotine dependence | CPT/HCPCS: 99214 ==

== ENCOUNTER 2020-06-21 04:22 | Outpatient (CLI) | payer MEDICARE, MEDICAID, SELFPAY ==
[2020-06-21 13:06] LABS: Hemoglobin A1C 7.3 % (<5.7)
[2020-06-21 13:45] LABS: Anion Gap 10.3 mmol/L (3-11); BUN 20 mg/dL (7-18); CO2 26.7 mmol/L (21.0-32.0); CREATININE 0.89 mg/dL (0.55-1.02); Calcium 9.3 mg/dL (8.5-10.1); Chloride 102 mmol/L (98-107); Glucose 135 mg/dL (74-106); Potassium 4.2 mmol/L (3.5-5.1); Sodium 139 mmol/L (136-145)
[2020-06-21 16:59] LABS: Uric Acid 4.6 mg/dL (2.6-6.0)
[2020-06-22 18:38] LABS: Fructosamine 256 mcmol/L (200 - 285)
== END 2020-06-21 04:42 ==
PROVIDERS: Internal Medicine Nephrology; PCP Family Medicine; Visit Provider Internal Medicine Endocrinology, Diabetes & Metabolism
DX: E11.65 Type 2 diabetes mellitus with hyperglycemia (principal); N20.0 Calculus of kidney
CPT/HCPCS: 36415; 80048; 82985; 83036; 84550

== ENCOUNTER 2020-06-26 19:47 | Outpatient (REF) | payer MEDICARE, MEDICAID, SELFPAY ==
[2020-06-26 19:30] LABS: Anion Gap 6.9 mmol/L (3-11); BUN 14 mg/dL (7-18); CO2 28.1 mmol/L (21.0-32.0); CREATININE 0.91 mg/dL (0.55-1.02); Calcium 9.2 mg/dL (8.5-10.1); Chloride 101 mmol/L (98-107); Estimated GFR 59.94 (mL/min/1.73m2); Glucose 171 mg/dL (74-106); Potassium 4.3 mmol/L (3.5-5.1); Sodium 136 mmol/L (136-145)
[2020-06-26 19:33] LABS: Bilirubin Negative (Negative); Blood Negative (Negative); Clarity Clear (Clear); Glucose Negative (Negative); Ketones Negative (Negative); Leukocyte Esterase Negative (Negative); Nitrite Negative (Negative); Specific Gravity 1.015 (1.005-1.025); Urobilinogen 0.2 EU/dL (Up TO 0.2); pH 8.5 (5-8)
== END 2020-06-26 20:07 ==
LOC: LBN 19:47
PROVIDERS: PCP Family Medicine; Visit Provider Internal Medicine Nephrology
DX: N20.0 Calculus of kidney (principal)
CPT/HCPCS: 80048; 81003

== ENCOUNTER 2020-07-23 01:33 | Outpatient (CLI) | payer MEDICARE, MEDICAID, SELFPAY ==
[2020-07-23 22:07] LABS: Parathyroid Hormone,Intact 66 pg/mL (19-88)
== END 2020-07-23 01:53 ==
PROVIDERS: PCP Family Medicine; Visit Provider Internal Medicine Endocrinology, Diabetes & Metabolism
DX: I25.10 Atherosclerotic heart disease of native 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 without angina pectoris (principal); I10 Essential (primary) hypertension; I47.1 Supraventricular tachycardia; J44.9 Chronic obstructive pulmonary disease, unspecified; E11.40 Type 2 diabetes mellitus with diabetic neuropathy, unspecified; Z79.4 Long term (current) use of insulin; Z87.891 Personal history of nicotine dependence
CPT/HCPCS: 36415; 83970; 99213

== ENCOUNTER 2020-09-04 14:57 | Outpatient (REF) | payer MEDICARE, MEDICAID, SELFPAY ==
[2020-09-04 19:28] LABS: Anion Gap 8.9 mmol/L (3-11); BUN 27 mg/dL (7-18); CO2 27.1 mmol/L (21.0-32.0); CREATININE 1.05 mg/dL (0.55-1.02); Calcium 9.3 mg/dL (8.5-10.1); Chloride 105 mmol/L (98-107); Estimated GFR 50.82 (mL/min/1.73m2); Glucose 174 mg/dL (74-106); Potassium 4.4 mmol/L (3.5-5.1); Sodium 141 mmol/L (136-145)
[2020-09-04 19:31] LABS: HCT 37.2 % (36.0-46.0); HGB 11.5 g/dL (11.2-15.7); MCH 27.4 pg (27.0-33.0); MCHC 30.9 % (32.0-36.0); MCV 88.8 fL (80-95); MPV 11.6 fL (8.0-11.0); Platelet Count 247 10^3/uL (130-400); RBC 4.19 10^6/uL (3.93-5.22); RDW 13.9 % (11.7-14.6); RDW-SD 44.5 fL; WBC 11.72 10^3/uL (4.4-10.8)
== END 2020-09-04 15:17 ==
LOC: NCHCN 14:57
PROVIDERS: PCP Family Medicine; Visit Provider Family Medicine
DX: R53.83 Other fatigue (principal); D64.9 Anemia, unspecified; L98.9 Disorder of the skin and subcutaneous tissue, unspecified
CPT/HCPCS: 80048; 85027

== ENCOUNTER 2020-10-05 19:08 | Outpatient (REF) | payer MEDICARE, MEDICAID, SELFPAY ==
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
--- OUTSIDE RECORDS SUMMARY | 2020-10-05 19:13 | XMS_ITS | Encounter Summary ---
:1945 Author Care Team Providers Name Role Phone Dr. Terri Bowser Primary Care Provider [phone] Dr. Terri Bowser Referring Provider [phone] Reason for Visit 2 month f/u diabetes Assessment and Plan 1. Type II diabetes mellitus unc ontrolled Improving A1c 7.5% in April 0 However anticipate delayed rise with Prednisone Treatmetnt Bgs had very good fasting, variable, bu t rising higher last two weeks Prior A1 7.9% Sep and 7.9% February in 2018 H ome BGs mostly low 100s . BG weekly profiles, different times. Will revise plan for Humalog due to PRe dnisone, but warn patient to return to old plan as Prendisone is reduced and BG go back to better range. ? glucose, fingerstick, bloo d ? BMP, serum or plasma ? HbA1c (hemoglobin A1c), bl ood ? fructosamine, serum 2. Polyneuropathy due to diabete s mellitus mild, no active ulceration. ? diabetic neuropathy: care instructions 3. Chronic kidney disease stage 3 CKD eGFR 45 Measures to slow progression: control DM, Control BP, Use MARGOTH-I, Cons ider SGLT-2 Discussion Note temporary increase HUmalog FOR PRED NISONE BELOW 100 = 2 UNITS 101 TO 130 = 6 UNITS 131 - 150 = 8 UNITS 151 - 165 = 12 UNITS 166 TO 180 = 14 UNITS 181 - 195 = 15 UNITS 196 TO 210 = 16 UNITS 211 - 225 = 17 UNITS 226 - 240 = 18 UNITS 241 - 255 = 19 UNITS 256 - 270 = 20 UJITS 271 - 285 = 21 UNIITS 286 - 300 = 22 UNITS 301 - 350 = 23 UNITS 351 or more = 24 Units As blood sugars come down with taper of prednisone resume old plan for Humalog Plan of Care Patient Goals A1c 7.5% Pre meals Bg low 100s Patient Instructions HEALTHY EATING HABITS ----Limited Carbohydrate: [...] kfast every 4nd day of sixteen days (days of month: ) [Total 2 times] T.est Pre and 2 hours Post lunch every 1 2th day of sixteen days (days of , ) [total 2 times] and Test Blood Sugar pre Supper and 2 ho urs Post supper every 8th day ( 8, 16, 24, ) . [total; 3 times] The daily pre breakfast blood sugar will document your fasting Glucose Control. The paired pre and 2 hour Post meal will document you Glucose Control after Meal Carbohydrate Load .CONTINUE KEEPING GOOD RECORDS. Reminders Provider Appointments Endocrinology Diana Santiago, Follow up 30 11/27/2020 MD-FACE 10:30AM Lab Glucose, Rhc - Sp ecialty Fingerstick, Blood 07/31/2020 ? BMP, Serum or [place] Plasma 11/05/2020 [facility] ? HbA1C [place] (Hemoglobin a1C), Blood 11/05/2020 [facility] ? Fructosamine, [place] Serum 11/05/2020 [facility] Referral None recorded. ? ? Procedures None recorded. ? ? Surgeries None recorded. ? ? Imaging None recorded. ? ? Medications Name Start Date ? ? Asmanex HFA 100 mcg/actuation aerosol inhaler ? Inhale 1 puff twice a day by inhalation route. aspirin 325 mg tablet ? Take 1 tablet every day by oral route. Crestor 10 mg tablet ? Take 1 tablet 3 times a week by oral route. Dexcom G5-G4 Sensor device ? Digox 125 mcg (0.125 mg) tablet ? Take 0.5 tablets every day by oral route. Dulcolax (bisacodyl) 10 mg rectal suppository ? Insert 1 suppository every day by rectal route. fluticasone prop.50 mcg spray,suspen-sod.chloride 0.9% nasal spray kit ? Take by nasal route. Humalog KwikPen (U-100) Insulin 100 unit/mL subcutaneo us ? Inject per sliding scale 2-24 units before meals to M AX 72 units daily Humira ? Levemir FlexTouch U-100 Insulin 100 unit/mL (3 mL) sub cutaneous pen ? Inject 12 units at 9 am and 6 units at 9 pm. lidocaine 5 % topical ointment ? APPLY TO AFFECTED AREA(S) BY TOPICAL ROUTE 1-4 TIMES DAILY NEEDED Lidoderm 5 % topical patch ? APPLY 1 PATCH BY TRANSDERMAL ROUTE ONCE DAILY (MAY WE AR UP TO 12HOURS.) lisinopril 10 mg tablet 05/01/2020 Take 0.5 tablets every day by oral route. magnesium oxide 400 mg (241.3 mg magnesium) tablet ? Take 1 tablet every day by oral route. meclizine 12.5 mg tablet ? Take 1 tablet every 6 hours by oral route as needed. metformin ER 500 mg tablet,extended release 24 hr ? Take 1 tablet every day by oral route at dinner for 9 0 days. metoprolol succinate ER 25 mg tablet,extended release 24 hr 05/01/2020 Take 0.5 tablets twice a day by oral route. Miralax 17 gram oral powder packet ? Take 1 packet every day by oral route as needed. Narcan 4 mg/actuation nasal spray ? Take as needed by nasal route. Nitrostat 0.4 mg sublingual tablet ? Place 1 tablet as needed by sublingual route. [place] 3 ? Take one tablet 3 times a day. oxycodone 5 mg tablet ? Take 1 tablet twice a day by oral route as needed. pantoprazole 40 mg tablet,delayed release ? Take 1 tablet twice a day by oral route. potassium citrate ? Two (50 mg) tab BID. prednisone 5 mg tablet 07/31/2020 Take 1 tablet every day by oral route. Restasis 0.05 % eye drops in a dropperette ? INSTILL 1 DROP INTO AFFECTED EYE(S) BY OPHTHALMIC ROU TE BID verapamil 40 mg tablet ? Take 1 tablet 3 times a day by oral route. Vitamin D 2,000 unit capsule ? Take 1 capsule every day by oral route. Xopenex 1.25 mg/3 mL solution for nebulization ? Inhale 3 mL every 8 hours by nebulization route as ne eded. Xopenex HFA 45 mcg/actuation aerosol inhaler ? Inhale 2 puffs every 6 hours by inhalation route as n eeded. Notes: BIPAP Medications Administered None recorded. Vitals Height Weight BMI Blood Pressure 5 ft 0.5 in 192.75 lbs 37 kg/m2 110/64 mm[Hg] Results Lab Results Date Name Specimen Result Interpretation Description Value Range Status Address ? 07/31/2020 Glucose, Blood ? Blood 177 ? ? Rhc - Fingerstick, capillary Glucose: Specialty: Blood mg/dl [facility] Allergies Code Code System Name Reaction Severity Onset 435 RxNorm Albuterol ? ? ? 861891 RxNorm Bactrim ? ? ? 292670 RxNorm Celexa ? ? ? 2231 RxNorm Cephalexin ? ? ? 2582 RxNorm Clindamycin ? ? ? 3992 RxNorm Epinephrine Anaphylaxis Severe ? 69440 RxNorm Gabapentin ? ? ? 0251 RxNorm Methotrexate Other Severe ? 7784 RxNorm Penicillin v ? ? ? 32031 RxNorm Prozac ? ? ? Problems Name Status Onset Date Source ? [...] Surgery Information not av ailable Notes: bilateral Vaccine List None recorded. Social History Tobacco Smoking Status Former Smoker Notes: 11/09/19 20: quit 45 years ago Second espinoza d smoke. Most Recent Tobacco Use 07/31/2020 Screening E-cigarette/Vape Status Never used electronic cigarettes In the 14 days before N symptom onset, did the patient spend time in [facility]? Smokeless Tobacco Status Never used smokeless tobacco Has patient visited an area N known to be high risk for 2019 n-CoV? Chewing tobacco none Family History Relation Problem Onset Age of Age Notes Mother Family history of 65 N/A DM2 end on diabetes mellitus Dialysis Mother Family history of (No 82 CAD. ND, H TN, cardiac disorder Information) STROKE Mother Family history of (No N/A Hypothyroi dism, Thyroid disorder Information) LT4 Maternal Grandmother Family history of (No N/A DM 2 end on diabetes mellitus Information) Dialysis Maternal Grandmother Family history of (No 99 (N o Notes) cardiac disorder Information) Son Family history of 54 N/A 55 yo DM 2 diabetes mellitus Metformin Son Family history of (No N/A Ten years . amyotrophic lateral Information) sclerosis Maternal Grandfather Family history of (No 74 He art Attack, cardiac disorder Information) of stroke Functional Status Unknown. Past Encounters 07/31/2020 Type II Diabetes Mellitus Uncontrolled; Polyneuropathy Due to Diabetes Mellitus; Chronic Kidney Disease Stage 3 Bunny Santiago MD-FACE: [address] [place] [address], Ph. History of Present Illness Note: <div>dm2 f/u. Patient states no change to allergies and medication list has been updated.& lt;/div><div> </div><div>diabetes, log/letter sent
</div><div>
</div><div>This 75 year old female comes for followup Endocrinology and Metabolism visit for Evaluation and Management of uncontrolled Diabetes Mellitus Type 2.

Overall Francisca feels good today. &lt ;/div><div>
</div><div>BUT SHE HAS RECURRENT PMR. STARTED ON PREDNISONE 60 MG one month ago. </div><div>Now taper down to 5 mg daily, See PCP next week. may slowly taper to 1 mg . THis has kicked up BG</div><div>
</div><div>ALso large Kidney Stone. No symptomatic but must be on special diet and take Potassium Citrate. No further infectious complications. Had surgery to remove huge stone. STones in August 2019. </div><div>Seen at [facility] HAS HIGH URINE URIC ACID. </div><div>
</div><div>HAS THREE CYSTS ON KIDNEY. </div><div> </div><div>She has only had one day of excessive thirst. She drinks 3 quarts of fluid No change i n urine freqwuency. Has nocturia. infrequent. (Note: She fell on coccyx and subsequently has had urinary emptying issues due to this fall.)</div><div>

CURRENT STATUS:

Nutrition
She only sometimes follows carbohydrate controlled diet. Visually impaired. She eats only two meals daily sometimes with snack. WorKS WITH pump installation and servicer, </div><div>ONly Cheating once in a while. Trying to be Carefull. </div><div>
</div><div>Breakfast (630 to 730) Typically she eats Danon Yogurt and 4 oz low Sodium V8 or two eggs +/- one piece of ibanez, with sometimes one slice sour dough toast. </div><div>Morning snack. rarely 1/2 bannana or orange or halo. NO more Brownies. </div><div>Lunch ( 1pm) Dont usually eat lunch. Either Yogur or 1/2 sandwish with [place] </div><div>Sometimes Snack Apple Banana. Clementines BUT May REally Cheat. Cookie, dipped in Milk eg Oreo.</div><div>Supper (depends on when partner gets home 4 to 6 Pm) . Usually meals on Wheels. Lot of Noodles. Lot of Vegetables. Lot of E[place] Chard. </div><div>SNACK piece [place] cheese. but little cup pudding (this sent her sugar u) </div><div>She does try tomeasures (not weigh) her foods. </div><div>She will have deserts such as ice cream, cake, pie rarely.
</div><div>
--------- Exercise
Her current Activity treatment plan includes:</div><div>NO cardio Rehab (closed) but may be starting up later. </div><div>does work out with weights at home </div><div>No bike or , treadmill, othe equipment at home. </div><div>
Her current oral medication plan includes: </div><div>#1 a Biguanide ( Metformin XR 500 mg one at bed. </div><div>
NEver used injectable GLP1 agonist such as Byetta (Exenatide), Victoza (Liraglutide), Bydureon (Exenetide long acting), or Trulicity or OZempic ( GLP-1 Agonist) .

Her current insulin plan includes #1 Short-acting insulin Humalog #2 Long acting insulin: Levemir.

BOLUS INSULIN

She uses HUmalog 6-10 (4 to 29) units before breakfast, 5-10 -19 -20 units before lunch, and 6 - 19 TO 20 units before supper. based on a scale 2 - 21 if eating, 0 - 9 if not eating by scale (correction plan) </div><div>uSING MOSTLY 19 TO 20 WITHHIGHER DOSES OF PREDNSIIONE.

BASAL
Currently patient takes Levemir 12 units AM and 6 units at bedtime.

--------- Osmotic Symptoms
She feels no unusual thrist, does void often during the day (bladder issues). She has no nocturia.

MEASURES of GLYCEMIC CONTROL:

Tests BG Meter daily, pre meals, bedtime.

Keeps log of BGs and brought to this visit. P

pre breakfast BG mid 100s few high 100s </div><div> Last visit ow to mid 100s, 185 max
2 hour post breakfast BG: none </div><div>

pre lunch BG: now low to high 200s , few 300s </div><div> Last: varies 100's high 100s, some 200s
2 hour post lunch BG: none </div><div& gt;

pre supper BG: low to high 200s few 300s </div><div> Last: ome mid 100s, some 200s a
2 hour post supper BG: None

bedtime BG (12 MN:: 96,116 to 311 rare </div><div> mid to high 100s

2 to 3 AM BG: (sensor) : rarely low duing night. none in last two monsths. </div><div> 130s 140s beep if under 120 .

(copy of logs, home BG records scanned into Chart)

Sensor Readings
Patient uses Dexcom G6 </div><div> Sensor readings shows: Above mix of BG, and Sensors.

< br>
Labs

Most recent HgbA1c</div><div>
</div><div>
</div><div>Intact PTH 66 (19 - 88) wnl ;;</div><div>
</div><div>06-21-2020
</div><div>A1c 7.3% eAG *prior to Prednisone </div><div>; BMP Na 132 K 4.2 Gluc 135 BUN 20 Creat 0.89 Na 139 K 4.2 </div><div> Fructosamine 254 (205 to 285) ;; Uric Acid 4.6</div><div>
</div>&l t;div>04-26-2020
</div><div>A1c 7.5% good '</div><div>
</div><div> Prior HgbA1c</div><div>A1c 7.9% Sep 2019</div><div>Aic 7.9% February 2019</div><div>A1c 8.3% Oct 2018 </div><div>A1c 7.7% Jun 2018</ div><div>
</div><div>04-26-2020
</div& gt;<div> Fructosamine 283 good (200 to 285) </div><div>
</div><div>Other Labs</d iv><div> 04-26-2020</div><div> BMP Wilfrido 9.5 Gluc 134 BUN 28 hi Creat 1.15 hi eGFR 45 Na 139 K 4.3 ;</div><div>Lyme Neg</div><div>
</div><div >
</div><div>February 2019 </div><div>Creat 0.87, 079 K 4.3 4.3. </div><div>Glucse 111, 192 </div><div>
</div><div>Albu/Creat18 .0 mg/gram</div><div>C-peptide- 3.3 </div><div>
dLDL 95</div><div>Total Chol 185</div><div>HDL 75 </div><div>TSH 0.84 </div> <div>25 OH Vitmin D 50 wnl </div><div>
</div><div>CMP Wilfrido 9.5Glu 111 BUN 24 Creat -..79 TOP 6.7 Alb 3.7
remainder okay </div><div>CRP < 0.05</div><div>Hgb Hctg 12.4 dn 38.2</div><div>
</div><div>Psoriatic Arthritis and Fibromyalgia long timer</div><div>On Prednision off and on for Twenty years.</div><div>
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 </div><div>

Most recent Fructosamine: not done Prior Fructosamine: not done

< br>
Complications:

#1 Nerve
. She reports diminished sensation in both feet. Shehas no calluses, red areas, sores or ulceration on either foot. She describes intermittent burning pain, sensitivity to touch in both feet sometimes. She does see sees a recreational assistant, Radha.

#2 Eye

She has had yearly exam with an energy conservation specialist, Dr. Rico since diagnosis of diabetes. Also has macular degen and cone disease. seen at [facility], dulce candelaria from [place]. She has had some blurring, mild change in vision. She has glasses for reading and for seeingdistant objects. She has has had two cataracts removed, IOL. She has never had laser treatment for diabetic eye disease.

#3 Kidney
She has no known history of diabetic kidney disease.

#4 Vascular -Heart</div><div> Slight Heart attack. Stent in LAD. HTN </div><div>Also has some Valve issue (Aug 2019, )

#5 Vascular - Brain
Never had Stroke or TIA</div><div>
#6 Vascular -Peripheral
None</div><div>
Concurrent Metabolic Problems

#1 Hypertension
Lisinopril 15 mg, Verapamil 45 mg TID, Digoxin .125 1/2 tab (see Director Public Fer [place]. SVT</div><div>
</div><div>#2 Hyperlipidemia
Crestor 5 mg four times a week</div><div> Crestor 10 mg three time a week</div><div>
#3 Obesity

#4 Thyroid Disease
No meds

Labs from PCP, other Providers

Date

fasting Glucose

Hgb A1c

Lipids TC Trig HDL LDL

BUN Creat

Microalbumin/Creatinine Ratio

TSH</div>`85``` Review of Systems ? Comprehensive Adult Problem ROS Reported By: Patient Constitutional: Constitutional: no significa nt weight change, good appetite, no fever, normal activity le oanh, fatigue; Trying to lose but hard to lose weight. (On oxy cdoone ) Eyes: Eyes: no eye pain, no eye re dness, no eye itchiness, no eye swelling; No diplopia. Dry E yes. Last saw primary Eye Doctor last week. ALso seeing [facility] i ssue cones, rods, also macular degeneration. vision impair 20/40 reading, 20/70 distance ENMT: ENMT: no ear pain, no ear di scharge, no hearing loss, no sore throat, no hoarseness Cardiovascular: Cardiovascular: no chest efra n; Has intermitten chest pressure, heaviness, or discomfort. (b ut also has esophageal disorder) No jaw, arm, neck pain, pres sure, heaviness, discomfort of other anginal equivalent, no exertional dypnea,no lightheadedness or dizziness .Three weeks ago palpitations, SVT. last in 1996. took extr a dose Verapamil. relief. Recommend discussion plans w ith Director Public.Some MODI. Seeis her cardiolgist regularly Respiratory: Respiratory: no cough, no wh eezing, difficulty breathing; Mild . uses inhalers Gastrointestinal: GI: no difficulty swallowing , no abdominal pain, no nausea, no vomiting, no diarrhea, no bl ood in stools, constipation; no melena, no change in bowel h abits. Due to use of Oxycodone Genitourinary: : no blood in urine, no pa in with urination, no increase in frequency of urination, no v aginal discharge; Menopause 63 last menses Musculoskeletal: Musculoskeletal: no soft tis ponce swelling, no joint swelling, no myalgia, moves all extrem ities well; Good relief with Humira. Pain marked decrease ,. But recurrent infections STOPPED Humuira (similar iss ue with Embrel) Skin: Skin: no pain, no itchiness, no redness, no rash, no hives; *Walks barefoot indoors. WAR N Patient Neurological symptoms: Neuro: no weakness, no tingl ing, no burning, no shooting pain, no headache, no dizziness, n o loss of consciousness, numbness Psychiatric: Psych: no depression, no anx iety, no insomnia Endocrine: Endocrine: normal drinking, no temperature intolerance; No polyuria. No polydipisia Notes: No excess bruising or bleedi ng. No hives. No itchy rash. Physical Exam ? [facility] General Adult Exam Reported By: Patient Constitutional: General Appearance: well-dev eloped, obese; mild cushingnoid facies. 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 Ambulation: ambulating normally Psychiatric: Insight: good judgement; Goo d Insight. Mental Status: active and alert, normal mood, normal a ffect Head: Head: normocephalic; Mildly Cushingnoid facies, not plethoric Eyes: Lids and Conjunctivae: non-i njected, no discharge, no pallor; No lid edema. No stare. Sclerae : non-icteric ENMT: Lips, Teeth, and Gums: no mo uth or lip ulcers, no bleeding gums. Oropharynx: moist mucous mem branes, no erythema, no exudates Neck: Neck: supple. Lymph Nodes: n o cervical LAD. Thyroid: no enlargement, no nodules Lungs: Respiratory effort: no dyspn ea. Auscultation: good air movement, no wheezing, no rales/crackles, no rhonchi Cardiovascular: Heart Auscultation: RRR, nor mal S1, normal S2, no murmurs, no gallops Musculoskeletal:: Motor Strength and Tone: nor mal motor strength, normal tone; Normal muscular bulk. Joints, Bones , and Muscles: normal movement of all extremities, no bony abnorma lities; No overt synovitis. No tenderness over long bones o f arms and legs. Extremities: no cyanosis, no edema; Feet: no excessive callus. no redness, no ulceration. Toenails-not th ick or yellowed Neurologic: Gait and Station: normal gai t, normal station. Cranial Nerves: grossly intact. Sensation: m onofilament test intact; vibration diminished to 128 mHz Tuning fork in both feet distally. Reflexes: DTRs abnormal; No delay in D TR relaxation time.AJs absent. Coordination and Cerebellum: no tremor Skin: Inspection and palpation: no rash, no ulcer; No red, wide striae. No remarkable Purpura. No ac anthosis Nigricans. No remarkable hyperpigmentation.No remarka ble hirsutism
[2020-10-05 19:22] LABS: HCT 38.3 % (36.0-46.0); HGB 11.9 g/dL (11.2-15.7); MCH 27.4 pg (27.0-33.0); MCHC 31.1 % (32.0-36.0); MCV 88.2 fL (80-95); MPV 11.5 fL (8.0-11.0); Platelet Count 255 10^3/uL (130-400); RBC 4.34 10^6/uL (3.93-5.22); RDW 14.2 % (11.7-14.6); RDW-SD 45.4 fL; WBC 11.18 10^3/uL (4.4-10.8)
[2020-10-05 19:39] LABS: ALT 26 U/L (14-59); AST 16 U/L (15-37); Alkaline Phosphatase 77 U/L (46-116); Anion Gap 8.2 mmol/L (3-11); BUN 24 mg/dL (7-18); Bilirubin, Total 0.3 mg/dL (0.2-1.0); C-Reactive Protein 0.14 mg/dL (0.0-0.3); CO2 29.8 mmol/L (21.0-32.0); CREATININE 0.95 mg/dL (0.55-1.02); Calcium 9.5 mg/dL (8.5-10.1); Chloride 102 mmol/L (98-107); Estimated GFR 57.04 (mL/min/1.73m2); Glucose 129 mg/dL (74-106); Potassium 4.5 mmol/L (3.5-5.1); Sodium 140 mmol/L (136-145); Total Protein 7.2 g/dL (6.4-8.2)
[2020-10-05 19:44] LABS: Hemoglobin A1C 8.1 % (<5.7)
[2020-10-05 19:58] LABS: ESR 14 mm/hr (0-30)
== END 2020-10-05 19:28 ==
LOC: NCHCN 19:08
PROVIDERS: PCP Family Medicine; Visit Provider Family Medicine
DX: E11.9 Type 2 diabetes mellitus without complications (principal); Z79.4 Long term (current) use of insulin; M35.3 Polymyalgia rheumatica; N20.0 Calculus of kidney; L40.50 Arthropathic psoriasis, unspecified
CPT/HCPCS: 80053; 85027; 85652; 83036; 86140; 87086

== ENCOUNTER 2020-11-02 13:05 | Outpatient (REF) | payer MEDICARE, MEDICAID, SELFPAY ==
--- OUTSIDE RECORDS SUMMARY | 2020-11-02 13:12 | XMS_ITS ---
:1945 Author Care Team Providers Name Role Phone DR. MACARENA VAUGHAN Primary Care Provider [phone] DR. MACARENA VAUGHAN Referring Provider [phone] Allergies Code Code System Name Reaction Severity Status Onset 435 RxNorm Albuterol ? ? Active ? 274613 RxNorm Bactrim ? ? Active ? 186008 RxNorm Celexa ? ? Active ? 2231 RxNorm Cephalexin ? ? Active ? 2582 RxNorm Clindamycin ? ? Active ? 3992 RxNorm Epinephrine Anaphylaxis Severe Active ? 84482 RxNorm Gabapentin ? ? Active ? 6051 RxNorm Methotrexate Other Severe Active ? 7984 RxNorm Penicillin v ? ? Active ? 97374 RxNorm Prozac ? ? Active ? Medications [...] 1 tablet as needed by sublingual route. [place] 3 Active ? Not available Take one [...] Fingerstick, capillary Glucose: Specialty: 103 Blood mg/dl [facility] 07/24/2020 Parathyroid Ab, ? No ? ? ? [facility] Serum observation Cente r: [address] 06/21/2020 BMP, Serum or ? No ? ? ? [facility] Plasma observation Vermo nt recorded. [facility]: [address] [place] [address] 05/02/2020 Glucose, ? Blood 143 ? ? Rhc - Fingerstick, Glucose: Sp ecialty: 103 Blood mg/dl [facility] 04/26/2020 Fructosamine, ? No ? ? ? [facility] Serum observation Vermo nt recorded. [facility]: [address] [place] [address] 04/26/2020 HbA1C ? No ? ? ? [facility] (Hemoglobin observation [place] a1C), Blood recorded. [facility]: [address] [place] [address] 11/09/2019 Glucose, Blood ? Blood 165 ? ? Rhc - Fingerstick, capillary Glucose: Specialty: 103 Blood mg/dl [facility] 09/20/2019 HbA1C ? No ? ? ? [facility] (Hemoglobin observation [place] a1C), Blood recorded. [facility]: [address] [place] [address] 09/20/2019 BMP, Serum or ? No ? ? ? [facility] Plasma observation Vermo nt recorded. [facility]: [address] [place] [address] 09/20/2019 Fructosamine, ? No ? ? ? [facility] Serum observation Vermo nt recorded. [facility]: [address] [place] [address] 07/05/2019 Glucose, Blood ? Blood 195 ? ? Rh[facility] - Fingerstick, capillary Glucose: Specialty: 103 Blood mg/dl [facility] Past Encounters 07/31/2020 Type II Diabetes Mellitus Uncontrolled; Polyneuropathy Due to Diabetes Mellitus; Chronic Kidney Disease Stage 3 Bunny Santiago MD-FACE: [address] [place] [address], Ph. 05/02/2020 Type II Diabetes Mellitus Uncontrolled; Polyneuropathy Due to Diabetes Mellitus; Chronic Kidney Disease Stage 3 Bunny Santiago MD-FACE: [address] [place] [address], Ph. 11/09/2019 Type II Diabetes Mellitus Uncontrolled; Polyneuropathy Due to Diabetes Mellitus Bunny Santiago MD-FACE: [address] [place] [address], Ph. 07/05/2019 Type II Diabetes Mellitus Uncontrolled; Polyneuropathy Due to Diabetes Mellitus Bunny Santiago MD-FACE: [address] [place] [address], Ph. Social History Tobacco Smoking Status Former [...]
[2020-11-02 17:07] LABS: Anion Gap 9.6 mmol/L (3-11); BUN 19 mg/dL (7-18); CO2 25.4 mmol/L (21.0-32.0); Calcium 9.3 mg/dL (8.5-10.1); Chloride 104 mmol/L (98-107); Glucose 135 mg/dL (74-106); Potassium 4.4 mmol/L (3.5-5.1); Sodium 139 mmol/L (136-145)
[2020-11-02 17:14] LABS: Hemoglobin A1C 7.9 % (<5.7)
[2020-11-04 10:54] LABS: Fructosamine 283 mcmol/L (200 - 285)
== END 2020-11-02 13:25 ==
LOC: LBN 13:05
PROVIDERS: PCP Family Medicine; Visit Provider Internal Medicine Endocrinology, Diabetes & Metabolism
DX: E11.65 Type 2 diabetes mellitus with hyperglycemia (principal)
CPT/HCPCS: 80048; 82985; 83036

== ENCOUNTER → 2020-12-13 09:41 | Outpatient (BNVA) | payer MEDICARE, MEDICAID, SELFPAY | PROVIDERS: PCP Family Medicine; Referring Provider Family Medicine; Visit Provider Internal Medicine Cardiovascular Disease | DX: I25.10 Atherosclerotic heart disease of native 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 without angina pectoris (principal); R07.89 Other chest pain; I47.1 Supraventricular tachycardia; I10 Essential (primary) hypertension | CPT/HCPCS: 99213 ==

== ENCOUNTER 2020-12-14 02:42 | Outpatient (CLI) | payer MEDICARE, MEDICAID, SELFPAY ==
--- NOTE | 2020-12-14 | DI.US_ITS ---
EXAM: US ABDOMEN CLINICAL HISTORY: RUQ PAIN, R10.11 TECHNIQUE: Ultrasound abdomen performed using standard protocol. COMPARISON: CT CT RENAL COLIC WO from 07/18/[address] CHEST WO from 07/18/[address] RENAL COLIC WO from 07/18/2019 FINDINGS: Exam is limited by the patient's body habitus, inability to breath hold and the inability to lie supi ne for an adequate length of time. LIVER: The liver again shows diffuse fatty infiltration, moderate. Two small cysts are seen in the le ft lobe of the liver, near the diaphragm. These appear unchanged when compared with previous CT. GALLBLADDER: A small amount of gallbladder sludge is noted. No evidence of cholelithiasis. No evidenc e of wall thickening. No pericholecystic fluid identified. SON'S SIGN: Negative. BILIARY SYSTEM: No intrahepatic or extrahepatic biliary ductal dilation. KIDNEYS: Kidneys are symmetric in size. No evidence of renal calculi. No evidence of hydronephrosis. There is a cyst at the lower pole of the right kidney measuring 6.7 cm. Additional 2.1 centimeter cys t is seen in the midportion of the right kidney. A 1.9 centimeter cyst is seen at the upper pole left kidney which also appears stable. PANCREAS: Normal where visualized. SPLEEN: Not enlarged. ABDOMINAL AORTA AND IVC: Aorta unable to be visualized. IVC unremarkable. ASCITES: None seen. IMPRESSION: Limited exam. Fatty liver. Gallbladder sludge. Bilateral renal cysts. No hydronephrosis. DATA REPOSITORY:
== END 2020-12-14 02:43 ==
LOC: DI 02:42
PROVIDERS: PCP Family Medicine; Visit Provider Family Medicine
DX: R10.11 Right upper quadrant pain (principal); K76.0 Fatty (change of) liver, not elsewhere classified; K82.8 Other specified diseases of gallbladder
CPT/HCPCS: 76700

== ENCOUNTER 2021-01-10 01:57 | Outpatient (CLI) | payer MEDICARE, MEDICAID, SELFPAY ==
--- NOTE | 2021-01-10 14:25 | DI.DEXA_ITS ---
EXAM: XR DEXA BONE DENSITY W/WO OLIVIA CLINICAL HISTORY: JAIL USE OF MEDICATION, Z79.52, HIGH RISK FOR OSTEOPOROSIS TECHNIQUE: Routine DEXA evaluation of the lumbar spine, hip, or forearm. COMPARISON: CR XR FOREARM LT from 11/23/2019 FINDINGS: Performed on a Hologic unit. Lateral image: No compression fracture evident. Lumbar Spine total T-score: -0.1 Hip total T-score:-2.5 . Independent reading at the left femoral neck yields a T-score of -3.3 Forearm total T-score: -2.5 IMPRESSION: Bone mineral density measures in the osteoporosis range. Fracture risk is high. Note: Any spine fracture indicates 5x risk for subsequent spine fracture and 2x risk for subsequent h ip fracture. World Health Organization criteria for BMD interpretation classify patients: Normal...... T- Score at or above -1.0 Osteopenic... T- Score between -1.0 and -2.5 Osteoporosis... T-Score at or below -2.5
== END 2021-01-10 02:17 ==
PROVIDERS: PCP Family Medicine; Visit Provider Family Medicine
DX: M81.0 Age-related osteoporosis without current pathological fracture (principal); Z79.52 Long term (current) use of systemic steroids
CPT/HCPCS: 77080

== ENCOUNTER 2021-02-19 02:20 | Outpatient (CLI) | payer MEDICARE, MEDICAID, SELFPAY ==
[2021-02-19 12:03] LABS: Hemoglobin A1C 8.3 % (<5.7)
[2021-02-19 12:19] LABS: Anion Gap 8.2 mmol/L (3-11); BUN 30 mg/dL (7-18); CO2 28.8 mmol/L (21.0-32.0); CREATININE 0.9 mg/dL (0.55-1.02); Calcium 8.9 mg/dL (8.5-10.1); Chloride 106 mmol/L (98-107); Glucose 149 mg/dL (74-106); Potassium 4.4 mmol/L (3.5-5.1); Sodium 143 mmol/L (136-145)
[2021-02-20 19:33] LABS: Fructosamine 293 mcmol/L (200 - 285)
== END 2021-02-19 02:21 | disposition home or self-care (01) ==
LOC: LBO 02:29
PROVIDERS: PCP Family Medicine; Visit Provider Internal Medicine Endocrinology, Diabetes & Metabolism
DX: E11.65 Type 2 diabetes mellitus with hyperglycemia (principal)
CPT/HCPCS: 36415; 80048; 82985; 83036

== ENCOUNTER 2021-03-07 03:15 | Outpatient (CLI) | payer MEDICARE, MEDICAID, SELFPAY ==
[2021-03-07 11:01] LABS: Abs Immature Grans 0.04 10^3/uL (0.0-0.06); Absolute Basophil Count 0.05 10^3/uL (0.0-0.2); Absolute Lymphocyte Count 1.46 10^3/uL (1.2-3.4); Absolute Monocyte Count 0.62 10^3/uL (0.1-0.8); Absolute Neutrophil Count 6.73 10^3/uL (1.2-6.7); Basophils % 0.6; Eosinophils % 1.1; HCT 39.7 % (36.0-46.0); HGB 12.2 g/dL (11.2-15.7); Immature Grans % 0.4; Lymphocytes % 16.2; MCH 26.2 pg (27.0-33.0); MCHC 30.7 % (32.0-36.0); MCV 85.4 fL (80-95); MPV 11.4 fL (8.0-11.0); Monocytes % 6.9; Neutrophils % 74.8; Nucleated RBC 0 %; Platelet Count 241 10^3/uL (130-400); RBC 4.65 10^6/uL (3.93-5.22); RDW 14.8 % (11.7-14.6); RDW-SD 45.9 fL
[2021-03-07 11:54] LABS: ALT 29 U/L (14-59); AST 16 U/L (15-37); Albumin 4.1 g/dL (3.4-5.0); Alkaline Phosphatase 76 U/L (46-116); Anion Gap 11.5 mmol/L (3-11); BUN 19 mg/dL (7-18); Bilirubin, Total 0.4 mg/dL (0.2-1.0); C-Reactive Protein 0.12 mg/dL (0.0-0.3); CO2 25.5 mmol/L (21.0-32.0); Calcium 9.3 mg/dL (8.5-10.1); Chloride 102 mmol/L (98-107); Estimated GFR 53.76 (mL/min/1.73m2); Glucose 226 mg/dL (74-106); Potassium 4.4 mmol/L (3.5-5.1); Sodium 139 mmol/L (136-145); Total Protein 7.4 g/dL (6.4-8.2)
[2021-03-07 11:57] LABS: ESR 22 mm/hr (0-30)
== END 2021-03-07 03:16 | disposition home or self-care (01) ==
PROVIDERS: PCP Family Medicine; Visit Provider Nurse Practitioner Family
DX: L40.50 Arthropathic psoriasis, unspecified (principal); Z79.899 Other long term (current) drug therapy
CPT/HCPCS: 36415; 80053; 85652; 85025; 86140

== ENCOUNTER 2021-03-12 11:04 | Outpatient (CLI) | payer MEDICARE, MEDICAID, SELFPAY ==
--- NOTE | 2021-03-12 12:45 | DI.RAD_ITS ---
Exam(s) XR CHEST 2V PA LATERAL EXAM: XR CHEST 2V PA LATERAL CLINICAL HISTORY: SOB, R06.02 TECHNIQUE: 2D digital imaging was performed. COMPARISON: No exams were available for comparison FINDINGS: The heart size is normal. Coronary artery stents are noted. There is a stable moderate size hiatal hernia. The lungs are clear. Degenerative disc changes are seen in the spine. IMPRESSION: Hiatal hernia. No acute pulmonary findings. DATA REPOSITORY: RADIATION DOSE DELIVERED:
== END 2021-03-12 11:24 ==
PROVIDERS: PCP Family Medicine; Visit Provider Physician Assistant Medical
DX: R06.02 Shortness of breath (principal); K44.0 Diaphragmatic hernia with obstruction, without gangrene
CPT/HCPCS: 71046

== ENCOUNTER 2021-03-12 16:03 | Outpatient (REF) | payer MEDICARE, MEDICAID, SELFPAY ==
[2021-03-14 15:28] LABS: COVID-19 RT-PCR UVMMC Result Negative (Negative)
== END 2021-03-12 16:04 | disposition home or self-care (01) ==
LOC: NCHCN 16:03
PROVIDERS: PCP Family Medicine; Visit Provider Physician Assistant Medical
DX: Z20.822 Contact with and (suspected) exposure to COVID-19 (principal); R06.02 Shortness of breath
CPT/HCPCS: U0003

== ENCOUNTER → 2021-04-12 09:48 | Outpatient (BNVA) | payer MEDICARE, MEDICAID, SELFPAY | PROVIDERS: PCP Family Medicine; Referring Provider Family Medicine; Visit Provider Internal Medicine Cardiovascular Disease | DX: I47.1 Supraventricular tachycardia (principal); I25.10 Atherosclerotic heart disease of native 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 without angina pectoris; I10 Essential (primary) hypertension; Z87.891 Personal history of nicotine dependence | CPT/HCPCS: 99214 ==

== ENCOUNTER 2021-04-16 10:00 | Outpatient (RCR) | payer SELFPAY ==
[2021-03-19 11:06] VITALS: BP 153/87; PULSE 71
[2021-03-21 10:05] VITALS: BP 143/87; PULSE 75; O2SAT 95
[2021-03-28 10:02] VITALS: BP 138/85; PULSE 68; O2SAT 94
[2021-04-02 09:47] VITALS: BP 153/77; PULSE 77; O2SAT 98
[2021-04-11 09:55] VITALS: BP 151/82; PULSE 67
[2021-04-16 10:02] VITALS: BP 124/72; PULSE 74
== END 2021-04-17 23:59 | disposition home or self-care (01) ==
LOC: CR 10:00
PROVIDERS: PCP Family Medicine; Visit Provider Family Medicine
DX: Z51.89 Encounter for other specified aftercare (principal)

== ENCOUNTER 2021-04-26 12:49 | Outpatient (REF) | payer MEDICARE, MEDICAID, SELFPAY ==
[2021-04-26 19:39] LABS: HCT 38.4 % (36.0-46.0); HGB 11.8 g/dL (11.2-15.7)
[2021-04-29 10:27] LABS: Lyme Ab w Rflx to Lyme Confirm Negative (Negative)
[2021-04-30 14:29] LABS: Tetanus Toxoid IgE <0.35 kU/L
[2021-04-30 21:24] LABS: Anaplasma phagocytophilum Negative (Negative); B. miyamotoi PCR Negative (Negative); Babesia divergens/MO-1 Negative (Negative); Babesia duncani Negative (Negative); Babesia microti Negative (Negative); Ehrlichia chaffeensis Negative (Negative); Ehrlichia ewingii/canis Negative (Negative); Ehrlichia muris eauclairensis Negative (Negative)
== END 2021-04-26 12:50 | disposition home or self-care (01) ==
LOC: NCHCN 12:49
PROVIDERS: PCP Family Medicine; Visit Provider Family Medicine
DX: Z00.00 Encounter for general adult medical examination without abnormal findings (principal); T50.A95A Adverse effect of other bacterial vaccines, initial encounter; T14.8XXA Other injury of unspecified body region, initial encounter; W57.XXXA Bitten or stung by nonvenomous insect and other nonvenomous arthropods, initial encounter
CPT/HCPCS: 86003; 87798; 85014; 85018; 86618

== ENCOUNTER 2021-05-06 01:37 | Outpatient (CLI) | payer MEDICARE, MEDICAID, SELFPAY ==
--- NOTE | 2021-05-06 | DI.US_ITS ---
Exam(s) US BREAST RT COMPLETE EXAM: US BREAST RT COMPLETE CLINICAL HISTORY: BREAST PAIN - RT SIDE. TECHNIQUE: Complete ultrasound of the right breast was performed including all 4 quadrants, the retr oareolar region, and the ipsilateral axilla. COMPARISON: Prior mammograms were reviewed. Last mammogram was today FINDINGS: Is no evidence of solid or significant cystic lesions in all 4 quadrants of the right breast. Also no abnormal findings in the retroareolar region. Benign-appearing lymph node in the right axilla is noted. IMPRESSION: Negative complete right breast ultrasound See separate diagnostic mammogram report dictated today. BI-RADS Category 2 - Benign Findings Breast Density - Category B - Scattered areas of fibroglandular density Breast density Category C or D implies that the patient has dense breast tissue. Dense breast tissue can make it harder to find cancer on a mammogram. Dense breast tissue is also associated with an incr eased risk of breast cancer. This information about the result of the mammogram report was provided to the patient to raise their awareness. Use this report when you speak with the patient about their risks for breast cancer, which includes their family history. At that time, you may recommend additional screening tests (Ultrasoun d or MRI) as these tests may add significant information. A negative radiographic report should not delay biopsy if a dominant or clinically suspicious mass is present. Up to ten percent of cancers are not identified on mammography. A negative report may reinforce clinical impression. Adenosis and dense breasts may obscure an underlying neoplasm. False positive reports average 6 to 10%. Patient will receive a letter notifying them of these results.
--- NOTE | 2021-05-06 | DI.MAMMO_ITS ---
Exam(s) MG MAMMO SCREENING 60 MIN DUR EXAM: MG MAMMO SCREENING 60 MIN DUR CLINICAL HISTORY: SCREENING,PREVENTIVE HEALTH CARE,Z00.00 TECHNIQUE: Mammograms were interpreted according to the usual protocol including computer analysis w ith CAD system, tomosynthesis and C-view imaging. COMPARISON: 2011 through 2017 FINDINGS: The breasts are composed of mainly fatty density , Breast Density category A. No suspicious masses or suspicious microcalcifications are seen. No skin thickening or abnormal axillary lymph nodes are seen. There has been no significant change from prior exams. IMPRESSION: BI-RADS Category 1, Negative mammogram Yearly screening mammography is recommended. Breast Density - Category A, fatty density. A negative radiographic report should not delay biopsy if a dominant or clinically suspicious mass is present. Up to ten percent of cancers are not identified on mammography. A negative report may reinforce clinical impression. Adenosis and dense breasts may obscure an underlying neoplasm. False positive reports average 6 to 10%. Patient will receive a letter notifying them of these results.
== END 2021-05-06 01:57 ==
PROVIDERS: PCP Family Medicine; Visit Provider Family Medicine
DX: Z00.00 Encounter for general adult medical examination without abnormal findings; R92.8 Other abnormal and inconclusive findings on diagnostic imaging of breast; N64.4 Mastodynia
CPT/HCPCS: 76642; 77063; 77067

== ENCOUNTER 2021-05-16 10:00 | Outpatient (RCR) | payer SELFPAY ==
[2021-04-18 00:26] VITALS: BP 124/72; PULSE 74
[2021-04-18 10:05] VITALS: BP 152/82; PULSE 74
[2021-04-25 10:11] VITALS: BP 137/85; PULSE 77
[2021-04-30 10:00] VITALS: BP 158/76; PULSE 77
[2021-05-02 10:01] VITALS: BP 159/81; PULSE 77
[2021-05-02 10:42] VITALS: BP 145/67; PULSE 70
[2021-05-16 10:03] VITALS: BP 187/81; PULSE 78
[2021-05-16 10:44] VITALS: BP 164/78
== END 2021-05-18 23:59 | disposition home or self-care (01) ==
LOC: CR 10:00
PROVIDERS: PCP Family Medicine; Visit Provider Family Medicine
DX: Z51.89 Encounter for other specified aftercare (principal)

== ENCOUNTER 2021-05-29 02:22 | Outpatient (CLI) | payer MEDICARE, MEDICAID, SELFPAY ==
--- NOTE | 2021-05-29 12:15 | DI.CT_ITS ---
Exam(s) CT ABDOMEN PELVIS WO EXAM: CT ABDOMEN PELVIS WO CLINICAL HISTORY: HEMATURIA, R31.9,COMPLEX RT RENAL CYSTS. TECHNIQUE: Imaging Protocol: Axial computed tomography images with coronal and sagittal reformatted images were created and reviewed. Oral: no COMPARISON: CT CT RENAL COLIC WO from 07/18/2019 FINDINGS: There is a hiatal hernia not fully included on the exam. The lung bases are clear. The liver shows fatty infiltration. The there are few small hypodensities, nonspecific. Sludge is noted in the gall bladder. No biliary dilatation. The is a stable large cyst is noted at the lower pole of the right kidney. Smaller cysts are seen at the superior pole of the right kidney. The left kidney shows a tiny hyperdense nodule in the mid le ft kidney, stable. No renal, ureteral or bladder calculi are seen. No evidence of bladder mass. Adrenals, spleen and pancreas are unremarkable. The appendix is normal. There is diverticulosis of the descending and sigmoid colon without evidence of diverticulitis. The uterus and ovaries are unre markable. The aorta is normal in diameter shows calcification. Degenerative changes are present in the lumbar spine.. IMPRESSION: Stable bilateral renal cysts. No evidence of urinary tract calculi or hydronephrosis. RADIATION DOSE DELIVERED: 1,187.4mGy.cm Total DLP DATA REPOSITORY: All CT scans at this facility are submitted to the National Radiology Data Registry (NRDR) Dose Index Registry (DIR) with the [employer] (ACR). RADIATION OPTIMIZATION: All CT scans at this facility use at least one of these dose optimization te chniques: automated exposure control; mA and/or kV adjustment per patient size (includes targeted exa ms where dose is matched to clinical indication); or iterative reconstruction.
== END 2021-05-29 02:42 ==
PROVIDERS: PCP Family Medicine; Visit Provider Surgery
DX: N28.1 Cyst of kidney, acquired (principal)
CPT/HCPCS: 74176

== ENCOUNTER 2021-05-29 02:22 | Outpatient (CLI) | payer MEDICARE, MEDICAID, SELFPAY ==
--- NOTE | 2021-05-29 | DI.US_ITS ---
Exam(s) US LOWER EXTREMITY VENOUS LT EXAM: US LOWER EXTREMITY VENOUS LT CLINICAL HISTORY: LT CALF PAIN, M79.662. TECHNIQUE: Lower extremity venous ultrasound performed using grayscale, color-flow, and spectral Do ppler analysis. COMPARISON: No exams were available for comparison FINDINGS: The common femoral, femoral and popliteal veins demonstrate normal compressibility, augmentation, and color Doppler. The posterior tibial veins are patent. No saphenous vein thrombosis or other superfi cial venous thrombosis is seen. A Matt's cyst is seen measuring 3.3 x 1.6 x 2.1 cm.. There is some edema in the soft tissues of the ankle. IMPRESSION: Small Matt's cyst. No evidence of DVT. DATA REPOSITORY:
== END 2021-05-29 02:42 ==
PROVIDERS: PCP Family Medicine; Visit Provider Family Medicine
DX: M71.22 Synovial cyst of popliteal space [Baker], left knee (principal); N28.1 Cyst of kidney, acquired
CPT/HCPCS: 74176; 93971

== ENCOUNTER 2021-06-07 02:23 | Outpatient (CLI) | payer MEDICARE, MEDICAID, SELFPAY ==
[2021-06-07 08:59] LABS: Hemoglobin A1C 8.6 % (<5.7)
[2021-06-07 09:25] LABS: Anion Gap 11.5 mmol/L (3-11); BUN 21 mg/dL (7-18); CO2 27.5 mmol/L (21.0-32.0); CREATININE 0.9 mg/dL (0.55-1.02); Calculated LDL 60 mg/dL (<100); Chloride 103 mmol/L (98-107); Cholesterol 193 mg/dL (<200); Glucose 187 mg/dL (74-106); HDL Cholesterol 75 mg/dL (40-60); Potassium 4.1 mmol/L (3.5-5.1); Sodium 142 mmol/L (136-145); Triglyceride 291 mg/dL (<150)
[2021-06-09 11:54] LABS: Fructosamine 288 mcmol/L (200 - 285)
== END 2021-06-07 02:24 | disposition home or self-care (01) ==
LOC: LBO 02:23
PROVIDERS: PCP Family Medicine; Visit Provider Internal Medicine Endocrinology, Diabetes & Metabolism
DX: E11.65 Type 2 diabetes mellitus with hyperglycemia (principal)
CPT/HCPCS: 36415; 80048; 80061; 82985; 83036

== ENCOUNTER 2021-06-18 10:00 | Outpatient (RCR) | payer SELFPAY ==
[2021-05-19 00:12] VITALS: BP 164/78; PULSE 78
[2021-05-23 09:59] VITALS: BP 148/81; PULSE 80
[2021-05-28 10:29] VITALS: BP 157/82; PULSE 89
[2021-05-30 09:55] VITALS: BP 159/81; PULSE 87
[2021-06-04 10:21] VITALS: BP 170/92; PULSE 78
[2021-06-06 10:28] VITALS: BP 160/78; PULSE 73
[2021-06-13 10:01] VITALS: BP 125/78; PULSE 71
[2021-06-18 10:22] VITALS: BP 167/85; PULSE 77
== END 2021-06-18 23:59 | disposition home or self-care (01) ==
LOC: CR 10:00
PROVIDERS: PCP Family Medicine; Visit Provider Family Medicine

== ENCOUNTER 2021-07-18 10:00 | Outpatient (RCR) | payer SELFPAY ==
[2021-06-19 00:07] VITALS: BP 167/85; PULSE 77
[2021-06-20 10:25] VITALS: BP 134/70; PULSE 73
[2021-07-04 10:09] VITALS: BP 151/89; PULSE 69
[2021-07-11 10:52] VITALS: BP 146/84; PULSE 76
[2021-07-16 10:09] VITALS: BP 148/83; PULSE 76
[2021-07-18 09:59] VITALS: BP 132/87; PULSE 84
[2021-07-23 09:51] VITALS: BP 138/77; PULSE 79
== END 2021-07-18 23:59 | disposition home or self-care (01) ==
LOC: CR 10:00
PROVIDERS: PCP Family Medicine; Visit Provider Family Medicine
DX: Z51.89 Encounter for other specified aftercare (principal)

== ENCOUNTER 2021-08-15 10:00 | Outpatient (RCR) | payer SELFPAY ==
[2021-07-19 00:20] VITALS: BP 132/87; PULSE 84
[2021-07-25 09:35] VITALS: BP 164/77; PULSE 72; O2SAT 98
[2021-08-06 09:50] VITALS: BP 150/65; PULSE 72
[2021-08-08 10:12] VITALS: BP 167/76; PULSE 77; O2SAT 98
[2021-08-13 10:17] VITALS: BP 166/81; PULSE 87
[2021-08-15 10:02] VITALS: BP 130/74; PULSE 77
== END 2021-08-18 23:59 | disposition home or self-care (01) ==
LOC: CR 10:00
PROVIDERS: PCP Family Medicine; Visit Provider Family Medicine
DX: Z51.89 Encounter for other specified aftercare (principal); R69 Illness, unspecified

== ENCOUNTER 2021-09-10 10:00 | Outpatient (RCR) | payer SELFPAY ==
[2021-08-19 00:10] VITALS: BP 130/74; PULSE 77
[2021-08-27 10:21] VITALS: BP 154/73; PULSE 65
[2021-08-29 11:02] VITALS: BP 147/75; PULSE 73
[2021-09-05 10:17] VITALS: BP 168/82; PULSE 68; O2SAT 95
[2021-09-10 09:51] VITALS: BP 124/74; PULSE 77
== END 2021-09-17 23:59 | disposition home or self-care (01) ==
LOC: CR 10:00
PROVIDERS: PCP Family Medicine; Visit Provider Family Medicine
DX: Z51.89 Encounter for other specified aftercare (principal)

== ENCOUNTER 2021-09-10 11:21 | Outpatient (REF) | payer MEDICARE, MEDICAID, SELFPAY ==
[2021-09-10 16:03] LABS: Hemoglobin A1C 8.8 % (<5.7)
[2021-09-10 16:20] LABS: Anion Gap 11.2 mmol/L (3-11); BUN 25 mg/dL (7-18); CO2 26.8 mmol/L (21.0-32.0); CREATININE 0.9 mg/dL (0.55-1.02); Calcium 8.9 mg/dL (8.5-10.1); Calculated LDL 65 mg/dL (<100); Chloride 104 mmol/L (98-107); Cholesterol 191 mg/dL (<200); Glucose 168 mg/dL (74-106); HDL Cholesterol 67 mg/dL (40-60); Potassium 4.1 mmol/L (3.5-5.1); Sodium 142 mmol/L (136-145); Triglyceride 298 mg/dL (<150)
[2021-09-11 15:45] LABS: Fructosamine 298 mcmol/L (200 - 285)
== END 2021-09-10 11:22 | disposition home or self-care (01) ==
LOC: LBN 11:21
PROVIDERS: PCP Family Medicine; Visit Provider Internal Medicine Endocrinology, Diabetes & Metabolism
DX: E11.65 Type 2 diabetes mellitus with hyperglycemia (principal)
CPT/HCPCS: 80048; 80061; 82985; 83036

== ENCOUNTER → 2021-09-19 10:42 | Outpatient (BNVA) | payer MEDICARE, MEDICAID, SELFPAY | PROVIDERS: PCP Family Medicine; Referring Provider Family Medicine; Visit Provider Internal Medicine Cardiovascular Disease | DX: I25.10 Atherosclerotic heart disease of native 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 without angina pectoris (principal); I47.1 Supraventricular tachycardia; I10 Essential (primary) hypertension; E78.5 Hyperlipidemia, unspecified | CPT/HCPCS: 99214; 99213 ==

== ENCOUNTER 2021-10-15 10:00 | Outpatient (RCR) | payer SELFPAY ==
[2021-09-18 00:03] VITALS: BP 124/74; PULSE 77
[2021-09-19 10:16] VITALS: BP 145/83; PULSE 69; O2SAT 96
[2021-10-01 11:41] VITALS: BP 155/96; PULSE 70
[2021-10-08 09:40] VITALS: BP 147/85; PULSE 81
[2021-10-15 10:43] VITALS: BP 151/76; PULSE 60
== END 2021-10-18 23:59 | disposition home or self-care (01) ==
LOC: CR 10:00
PROVIDERS: PCP Family Medicine; Visit Provider Family Medicine
DX: Z51.89 Encounter for other specified aftercare (principal); R69 Illness, unspecified

== ENCOUNTER 2021-10-21 23:52 | Outpatient (RCR) | payer SELFPAY | END 2021-11-14 16:40 | LOC: CR 23:52 | PROVIDERS: PCP Family Medicine; Visit Provider Family Medicine | DX: R69 Illness, unspecified (principal) ==

== ENCOUNTER 2021-10-30 15:31 | Outpatient (REF) | payer MEDICARE, MEDICAID, SELFPAY ==
[2021-10-30 13:31] LABS: ESR 6 mm/hr (0-30)
[2021-10-30 13:33] LABS: Anion Gap 9.1 mmol/L (3-11); BUN 18 mg/dL (7-18); CO2 28.9 mmol/L (21.0-32.0); CREATININE 0.9 mg/dL (0.55-1.02); Calcium 9.1 mg/dL (8.5-10.1); Chloride 103 mmol/L (98-107); Glucose 108 mg/dL (74-106); Potassium 4.1 mmol/L (3.5-5.1); Sodium 141 mmol/L (136-145)
[2021-10-30 13:44] LABS: C-Reactive Protein 0.07 mg/dL (0.0-0.3)
[2021-10-31 13:15] LABS: COVID-19 RT-PCR UVMMC Result Negative (Negative)
[2021-11-01 11:05] LABS: Fructosamine 304 mcmol/L (200 - 285)
== END 2021-10-30 15:32 | disposition home or self-care (01) ==
LOC: NCHCN 15:31
PROVIDERS: Internal Medicine Endocrinology, Diabetes & Metabolism; PCP Family Medicine; Visit Provider Family Medicine
DX: Z20.822 Contact with and (suspected) exposure to COVID-19 (principal)
CPT/HCPCS: 80048; 85652; U0003; U0005; 82985; 86140

== ENCOUNTER 2021-12-16 13:14 | Outpatient (REF) | payer MEDICARE, MEDICAID, SELFPAY ==
[2021-12-16 15:33] LABS: Anion Gap 11.3 mmol/L (3-11); BUN 24 mg/dL (7-18); CO2 26.7 mmol/L (21.0-32.0); CREATININE 0.9 mg/dL (0.55-1.02); Calcium 9.1 mg/dL (8.5-10.1); Chloride 104 mmol/L (98-107); Glucose 134 mg/dL (74-106); Potassium 3.9 mmol/L (3.5-5.1); Sodium 142 mmol/L (136-145)
[2021-12-16 16:00] LABS: Hemoglobin A1C 8.9 % (<5.7)
[2021-12-17 18:11] LABS: Fructosamine 318 mcmol/L (200 - 285)
== END 2021-12-16 13:15 | disposition home or self-care (01) ==
LOC: NCHCN 13:14
PROVIDERS: PCP Family Medicine; Visit Provider Family Medicine
DX: E11.65 Type 2 diabetes mellitus with hyperglycemia (principal)
CPT/HCPCS: 80048; 82985; 83036

== ENCOUNTER 2022-01-14 10:00 | Outpatient (RCR) | payer SELFPAY ==
[2021-12-17 10:06] VITALS: BP 146/72; PULSE 72
[2021-12-24 10:00] VITALS: BP 149/63; PULSE 78; O2SAT 97
[2021-12-26 10:05] VITALS: BP 160/75; PULSE 73
[2021-12-31 10:03] VITALS: BP 139/71; PULSE 79
[2022-01-02 10:10] VITALS: BP 142/63; PULSE 71; O2SAT 98
[2022-01-14 09:50] VITALS: BP 124/56; PULSE 67
[2022-01-16 10:49] VITALS: BP 143/66; PULSE 77
== END 2022-01-16 23:59 | disposition home or self-care (01) ==
LOC: CR 10:00
PROVIDERS: PCP Family Medicine; Visit Provider Family Medicine
DX: R69 Illness, unspecified (principal)

== ENCOUNTER 2022-01-27 10:10 | Outpatient (REF) | payer MEDICARE, MEDICAID, SELFPAY ==
[2022-01-27 14:43] LABS: Anion Gap 8.9 mmol/L (3-11); BUN 23 mg/dL (7-18); CO2 29.1 mmol/L (21.0-32.0); CREATININE 0.9 mg/dL (0.55-1.02); Calcium 9.3 mg/dL (8.5-10.1); Chloride 103 mmol/L (98-107); Glucose 124 mg/dL (74-106); Potassium 4.1 mmol/L (3.5-5.1); Sodium 141 mmol/L (136-145)
[2022-01-28 16:09] LABS: Fructosamine 302 mcmol/L (200 - 285)
== END 2022-01-27 10:11 | disposition home or self-care (01) ==
LOC: NCHCN 10:10
PROVIDERS: PCP Family Medicine; Visit Provider Internal Medicine Endocrinology, Diabetes & Metabolism
DX: E11.65 Type 2 diabetes mellitus with hyperglycemia (principal)
CPT/HCPCS: 80048; 82985

== ENCOUNTER 2022-02-11 10:00 | Outpatient (RCR) | payer SELFPAY ==
[2022-01-17 00:07] VITALS: BP 143/66; PULSE 77
[2022-01-21 09:55] VITALS: BP 135/60; PULSE 73
[2022-02-06 10:17] VITALS: BP 133/99; PULSE 72; O2SAT 99
[2022-02-11 10:06] VITALS: BP 154/69; PULSE 78
== END 2022-02-15 23:59 | disposition home or self-care (01) ==
LOC: CR 10:00
PROVIDERS: PCP Family Medicine; Visit Provider Internal Medicine Cardiovascular Disease
DX: R69 Illness, unspecified (principal)

== ENCOUNTER 2022-03-11 18:04 | Outpatient (REF) | payer MEDICARE, MEDICAID, SELFPAY ==
[2022-03-11 15:38] LABS: Anion Gap 10.4 mmol/L (3-11); BUN 23 mg/dL (7-18); CO2 28.6 mmol/L (21.0-32.0); Calcium 9.2 mg/dL (8.5-10.1); Chloride 103 mmol/L (98-107); Estimated GFR 53.62 (mL/min/1.73m2); Glucose 144 mg/dL (74-106); Hemoglobin A1C 8.4 % (<5.7); Potassium 4.2 mmol/L (3.5-5.1); Sodium 142 mmol/L (136-145)
[2022-03-12 18:29] LABS: Fructosamine 306 mcmol/L (200 - 285)
== END 2022-03-11 18:05 | disposition home or self-care (01) ==
LOC: LBN 18:04
PROVIDERS: PCP Family Medicine; Visit Provider Internal Medicine Endocrinology, Diabetes & Metabolism
DX: E11.65 Type 2 diabetes mellitus with hyperglycemia (principal)
CPT/HCPCS: 80048; 82985; 83036

== ENCOUNTER 2022-03-18 09:45 | Outpatient (RCR) | payer SELFPAY ==
[2022-02-16 00:13] VITALS: BP 154/69; PULSE 78
[2022-02-18 10:05] VITALS: BP 132/67; PULSE 70
[2022-02-20 09:48] VITALS: BP 135/65; PULSE 68
[2022-02-25 10:00] VITALS: BP 145/69; PULSE 68
[2022-03-04 10:14] VITALS: BP 141/64; PULSE 74
[2022-03-11 10:18] VITALS: BP 151/67; PULSE 85
[2022-03-13 09:51] VITALS: BP 137/64; PULSE 66
[2022-03-18 09:43] VITALS: BP 138/70; PULSE 55
== END 2022-03-18 23:59 | disposition home or self-care (01) ==
LOC: CR 09:45
PROVIDERS: PCP Family Medicine; Visit Provider Internal Medicine Cardiovascular Disease
DX: R69 Illness, unspecified (principal)

== ENCOUNTER → 2022-03-28 00:28 | Outpatient (CLI) | payer MEDICARE, MEDICAID, SELFPAY ==
--- NOTE | 2022-03-28 | DI.US_ITS ---
Exam(s) US LOWER EXTREMITY VENOUS LT EXAM: US LOWER EXTREMITY VENOUS LT CLINICAL HISTORY: SWELLING LT LEG, M79.89,REDNESS,H/O SUPERFICIAL CLOT, ? DVT TECHNIQUE: Left lower extremity venous ultrasound performed using grayscale, color-flow, and spectra l Doppler analysis. COMPARISON: US US LOWER EXTREMITY VENOUS LT from 05/29/2021 FINDINGS: The left common femoral, femoral and popliteal veins demonstrate normal compressibility, augmentation , and color Doppler. The posterior tibial veins are patent. The saphenofemoral junction is unremarka ble. There is a 3.9 x 1.3 x 2.2 cm Matt cyst. The soft tissues are unremarkable. IMPRESSION: No DVT. DATA REPOSITORY:
== END ==
PROVIDERS: PCP Family Medicine; Visit Provider Physician Assistant Medical
DX: M79.89 Other specified soft tissue disorders (principal); M79.605 Pain in left leg; M71.22 Synovial cyst of popliteal space [Baker], left knee
CPT/HCPCS: 93971

== ENCOUNTER 2022-04-15 09:54 | Outpatient (RCR) | payer SELFPAY ==
[2022-03-19 00:06] VITALS: BP 138/70; PULSE 55
[2022-03-27 10:05] VITALS: BP 140/69; PULSE 74
[2022-04-03 10:12] VITALS: BP 136/73; PULSE 72
[2022-04-08 10:42] VITALS: BP 132/67; PULSE 77
[2022-04-10 09:43] VITALS: BP 148/67; PULSE 71
[2022-04-15 09:45] VITALS: BP 154/73; PULSE 78
== END 2022-04-17 23:59 | disposition home or self-care (01) ==
LOC: CR 09:54
PROVIDERS: PCP Family Medicine; Visit Provider Internal Medicine Cardiovascular Disease
DX: R69 Illness, unspecified (principal)

== ENCOUNTER 2022-04-25 02:33 | Outpatient (CLI) | payer MEDICARE, MEDICAID, SELFPAY ==
[2022-04-25 12:00] LABS: ESR 11 mm/hr (0-30)
[2022-04-25 12:56] LABS: C-Reactive Protein 0.09 mg/dL (0.0-0.3)
== END 2022-04-25 02:34 | disposition home or self-care (01) ==
LOC: LBO 02:33
PROVIDERS: PCP Family Medicine; Visit Provider Family Medicine
DX: M35.3 Polymyalgia rheumatica (principal)
CPT/HCPCS: 36415; 85652; 86140

== ENCOUNTER → 2022-05-13 02:48 | Outpatient (CLI) | payer MEDICARE, MEDICAID, SELFPAY ==
--- NOTE | 2022-05-13 10:45 | DI.MAMMO_ITS ---
Exam(s) MG MAMMO SCREENING 60 MIN DUR EXAM: MG MAMMO SCREENING 60 MIN DUR CLINICAL HISTORY: SCREENING, Z12.31, Z12.39 TECHNIQUE: Bilateral full field digital CC and MLO mammographic images were obtained with 3D tomosyn thesis and utilizing computer aided detection (CAD). COMPARISON: Available for comparison. FINDINGS: Masses/Architectural Distortion: None seen. Microcalcifications: No suspicious pleomorphic-type are seen. Skin Thickening/Nipple Retraction: None. IMPRESSION: 1. No significant interval change with no specific features of malignancy noted. 2. Unless there is more urgent need, screening mammography is recommended, as per [employer] [employer] guidelines. 3. Findings were discussed with the patient on the date of the examination BI-RADS Category 1 - Negative Breast Density - Category B - Scattered areas of fibroglandular density Breast density category C or D implies that the patient has dense breast tissue. Dense breast tissue is very common and is not abnormal but dense breast tissue can make it harder to find cancer on a ma mmogram. Also, dense breast tissue may increase their breast cancer risk. This information about the result of the mammogram report was provided to the patient to raise their awareness. Use this report when you speak with the patient about their risks for breast cancer, which includes their family hist ory. At that time, you may recommend for more screening tests (Ultrasound or MRI) as they might be us eful based on their risk. A negative radiographic report should not delay biopsy if a dominant or clinically suspicious mass is present. Up to ten percent of cancers are not identified on mammography. A negative report may reinforce clinical impression. Adenosis and dense breasts may obscure an underlying neoplasm. False positive reports average 6 to 10%. Patient will receive a letter notifying them of these results.
== END ==
PROVIDERS: PCP Family Medicine; Visit Provider Family Medicine
DX: Z12.31 Encounter for screening mammogram for malignant neoplasm of breast (principal)
CPT/HCPCS: 77063; 77067

== ENCOUNTER 2022-05-15 10:09 | Outpatient (RCR) | payer SELFPAY ==
[2022-04-22 10:05] VITALS: BP 158/67; PULSE 71
[2022-04-29 09:52] VITALS: BP 123/53; PULSE 74
[2022-05-01 09:50] VITALS: BP 138/65; PULSE 71
[2022-05-06 09:46] VITALS: BP 133/61; PULSE 73; O2SAT 96
[2022-05-13 10:08] VITALS: BP 126/81; PULSE 71
[2022-05-15 09:50] VITALS: BP 132/75; PULSE 72; O2SAT 97
== END 2022-05-18 23:59 | disposition home or self-care (01) ==
LOC: CR 10:09
PROVIDERS: PCP Family Medicine; Visit Provider Internal Medicine Cardiovascular Disease
DX: R69 Illness, unspecified (principal)

== ENCOUNTER 2022-06-16 18:07 | Outpatient (REF) | payer MEDICARE, MEDICAID, SELFPAY ==
[2022-06-16 19:13] LABS: Hemoglobin A1C 8.5 % (<5.7)
[2022-06-16 19:24] LABS: Anion Gap 8.1 mmol/L (3-11); BUN 23 mg/dL (7-18); CO2 28.9 mmol/L (21.0-32.0); CREATININE 1.1 mg/dL (0.55-1.02); Chloride 103 mmol/L (98-107); Estimated GFR 51.11 (mL/min/1.73m2); Glucose 154 mg/dL (74-106); Potassium 4.1 mmol/L (3.5-5.1); Sodium 140 mmol/L (136-145)
[2022-06-18 19:49] LABS: Fructosamine 295 mcmol/L (200 - 285)
== END 2022-06-16 18:08 | disposition home or self-care (01) ==
LOC: NCHCN 18:07
PROVIDERS: PCP Family Medicine; Visit Provider Internal Medicine Endocrinology, Diabetes & Metabolism
DX: E11.65 Type 2 diabetes mellitus with hyperglycemia (principal)
CPT/HCPCS: 80048; 82985; 83036

== ENCOUNTER 2022-06-17 09:25 | Outpatient (RCR) | payer SELFPAY ==
[2022-05-19 00:15] VITALS: BP 132/75; PULSE 72
[2022-05-22 10:24] VITALS: BP 139/71; PULSE 74
[2022-05-27 09:53] VITALS: BP 141/51; PULSE 76
[2022-05-29 10:41] VITALS: BP 150/77; PULSE 71
[2022-06-03 09:44] VITALS: BP 153/65; PULSE 82
[2022-06-05 10:12] VITALS: BP 149/67; PULSE 78
[2022-06-10 10:03] VITALS: BP 150/59; PULSE 77; O2SAT 96
[2022-06-12 09:43] VITALS: BP 126/60; PULSE 72; O2SAT 96
[2022-06-17 09:39] VITALS: BP 117/69; PULSE 68
== END 2022-06-18 23:59 | disposition home or self-care (01) ==
LOC: CR 09:25
PROVIDERS: PCP Family Medicine; Visit Provider Internal Medicine Cardiovascular Disease
DX: R69 Illness, unspecified (principal)

== ENCOUNTER → 2022-07-09 01:39 | Outpatient (CLI) | payer MEDICARE, MEDICAID, SELFPAY ==
--- NOTE | 2022-07-09 | DI.CT_ITS ---
Exam(s) CT ABDOMEN WO/W EXAM: CT ABDOMEN WO/W CLINICAL HISTORY: RENAL CYST N28.1 TECHNIQUE: COMPARISON: CT CT ABDOMEN PELVIS WO from 05/29/2021 FINDINGS: Visualized lung bases: No infiltrates nor pleural effusions. Large hiatal hernia is again noted. There is no ascites. LIVER: Left hepatic lobe hypodensities are again noted. These are probably cysts or hemangiomas or a combination there of. No focal findings in the right hepatic lobe. No dilated intrahepatic ducts. GALLBLADDER/BILIARY: There is cholelithiasis. Tiny layering gallstones are noted. There is no gallb ladder wall edema nor gallbladder distension. CBD is not dilated. No obvious calculi in the CBD. PANCREAS: No evidence of significant pancreatic mass nor dilatation of the pancreatic duct. SPLEEN: Not enlarged. No splenic lesions. Splenic and portal veins are patent. ADRENALS: Unremarkable. No nodules. KIDNEYS: Small benign simple cysts measuring 8 millimeters in the superior pole of the left kidney. No other focal left kidney findings. In the opposite-right kidney there are larger and more numerous cysts which are again noted. The lar gest of these is in the inferior pole and measures 7.3 x 6.1 cm and contains thin almost imperceptibl e septi and 1 mural calcification. This finding is unchanged from 1 year ago (CT scan 05/29/2021). Bosniak 2-type. No hydronephrosis. ABDOMINAL AORTA: not enlarged. also no [id number] adenopathy. no adenopathy around the aortic bifurcation. GI: no bowel obstruction. large hiatal hernia again noted. OSSEOUS: No significant osseous lesions. No fractures. Mild degenerative anterolisthesis L4 upon L5 . IMPRESSION: 1. Stable appearance of the renal cysts, including the largest and only non simple cyst which is in t he inferior pole measuring 7.3 x 6.1 cm, unchanged. This is a Bosniak-type 2 cyst. One year follow- up recommended. 2. Benign-appearing hypodensities in the liver which are probably a combination of cysts and hemangio mas, unchanged. No new ominous focal hepatic lesions. 3. Cholelithiasis but no evidence of acute cholecystitis nor dilatation of the biliary tree.
[2022-07-09] MEDS: Normal Saline Flush 10 ML SYR IVP (09:55)
[2022-07-09] MEDS: Omnipaque 350 MG/ML 100 ML BTL IJ (10:03)
== END ==
PROVIDERS: PCP Family Medicine; Visit Provider Surgery
DX: N28.1 Cyst of kidney, acquired (principal); K80.20 Calculus of gallbladder without cholecystitis without obstruction
CPT/HCPCS: 74170; J3490

== ENCOUNTER 2022-07-15 09:52 | Outpatient (RCR) | payer SELFPAY ==
[2022-06-19 00:18] VITALS: BP 117/69; PULSE 68
[2022-06-24 10:07] VITALS: BP 143/63; PULSE 63
[2022-07-01 09:33] VITALS: BP 148/67; PULSE 72
[2022-07-03 10:06] VITALS: BP 149/79; PULSE 78
[2022-07-08 09:29] VITALS: BP 153/77; PULSE 70
--- OUTSIDE RECORDS SUMMARY | 2022-07-08 09:30 | XMS_ITS | Encounter Summary ---
:1945 Author Organization [facility] Address [address] [place] [address] Care Team Providers Name Role Phone Terri Bowser MD Primary Care Provider Encounter Details Date Type Department Care Team Description 04/27/2021 Lab Requisition [facility] Outr Resulting Lab, Pathology & Laboratory Provider [facility] [address], [place] [address] Social History Tobacco Use Types Packs/Day Years Used Date Never Assessed Sex Assigned at Date Recorded Not on file documented as of this encounter Plan of Treatment Not on filedocumented as of this encounter Procedures Procedure Name Priority Date/Time Associated Diagnosis Comme nts LYME AB Routine 04/26/2021 12:30 EDT Results for this procedure are i n the results section . documented in this encounter Results LYME AB (04/26/2021 12:30 EDT) Pathologist Sig nature Lyme Ab NegativeComment: New Negative [facility] 3rd generation assay LABORATORY SERVICES in use 03/28/2020 Specimen Blood - Venous blood (substance) Performing Organization Address City/State/ZIP Code Phon e Number [facility] [address] [place] [address] SERVICES documented in this encounter Visit Diagnoses Not on filedocumented in this encounter Care Teams Kennel Attendant Relationship Specialty Start Date End Date Terri Bowser MD PCP - General 03/30/16 [address] [place], [place] [id number] documented as of this encounter
--- OUTSIDE RECORDS SUMMARY | 2022-07-08 09:30 | XMS_ITS | Encounter Summary ---
:1945 Author Organization [facility] Address [address] [place] [address] Care Team Providers Name Role Phone Terri Bowser MD Primary Care Provider Encounter Details Date Type Department Care Team Description 07/23/2020 Lab Requisition [facility] Outr Resulting Lab, Pathology & Laboratory Provider [facility] [address], [place] [address] Social History Tobacco Use Types Packs/Day Years Used Date Never Assessed Sex Assigned at Date Recorded Not on file documented as of this encounter Plan of Treatment Not on filedocumented as of this encounter Procedures Procedure Name Priority Date/Time Associated Diagnosis Comme nts PTH INTACT Routine 07/23/2020 11:24 EDT Results for this procedure are i n the results section . documented in this encounter Results PTH INTACT (07/23/2020 11:24 EDT) Pathologist Sig nature Intact PTH 66 19 - 88 pg/mL [facility] SERVICES Specimen Blood - Venous blood (substance) Performing Organization Address City/State/ZIP Code Phon e Number [facility] [address] [place] [address] SERVICES documented in this encounter Visit Diagnoses Not on filedocumented in this encounter Care Teams Twisthand Relationship Specialty Start Date End Date Terri Bowser MD PCP - General 03/30/16 [address] [place], [place] [id number] documented as of this encounter
--- OUTSIDE RECORDS SUMMARY | 2022-07-08 09:30 | XMS_ITS | Clinical Summary ---
:1945 Author Organization [facility] Address [address] [place] [address] Care Team Providers Name Role Phone Terri Bowser MD Primary Care Provider Social History Tobacco Use Types Packs/Day Years Used Date Never Assessed Sex Assigned at Date Recorded Not on file Plan of Treatment Health Maintenance Due Date Last Done Comments COVID-19 Vaccine (1) 1955 Fall Risk Screening 2008 Care Teams Anglesmith Relationship Specialty Start Date End Date Terri Bowser MD PCP - General 03/30/[address] [place] [id number]
--- OUTSIDE RECORDS SUMMARY | 2022-07-08 09:30 | XMS_ITS | Encounter Summary ---
:1945 Author Organization Health system Address [address] [place] [address] Care Team Providers Name Role Phone Terri Bowser MD Primary Care Provider Encounter Details Date Type Department Care Team Description 03/13/2021 Lab Requisition [facility] Outr Resulting Lab, Pathology & Laboratory Provider [facility] [address] [place] [address] Social History Tobacco Use Types Packs/Day Years Used Date Never Assessed Sex Assigned at Date Recorded Not on file documented as of this encounter Plan of Treatment Not on filedocumented as of this encounter Procedures Procedure Name Priority Date/Time Associated Diagnosis Comme nts COVID-19 TEST [facility] Today 03/12/2021 11:20 LAB PCR EDT COVID-19 TESTING Routine 03/12/2021 11:20 Results for this EDT procedure are i n the results section. documented in this encounter Results COVID-19 TEST [facility] LAB PCR (03/12/2021 11:20 EDT) Specimen Swab - Entire nasopharynx (body structur e) Performing Organization Address City/State/ZIP Code Phon e Number [facility] [address] [place] [address] SERVICES COVID-19 TESTING (03/12/2021 11:20 EDT) COVID-19 rt-PCR Negative Negative [facility] Result Comment: [facility] This test has not been FDA c leared or approved. This test has been authorized by FDA under an EUA for use by authorized laboratories. This test has been authorized only for detection of nucleic acid fro SERVICES m 2018-nCoV, not for any oth er viruses or pathogens. This test is only authorized for the duration of the declaration that circumstances exist justifying the authorization of emergency use of in vitro d iagnostic tests for detectio n and/or diagnosis of 2019-nCoV under section 564(b)(1) of Act, 21 U.S.C ?? 360bbb-3(b) (1), unless the authorization is terminated or revoked sooner. Negative results do not prec lude 2019-nCoV infection and should not be used as the sole basis for treatment or other patient management decisions. Negative results must be combined with clinical observa tions, patient history, and epidemiological informatio n. This test was developed and its performance characteristics determined by [facility]. It has not been cleared or approved by the US Food and Drug Administration. FDA does not require this test to go through premarket FDA review. This t est is used for clinical purposes. It should not be regarded as investigational or for research. This laboratory is certified under the Clinical Laboratory Improvement Amendm ents (CLIA) as qualified to perform high complexity clinical laboratory testing. This test is based on the CD C COVID-19 Emergency Use Authorization (EUA) assay, with minor modification as defined by the FDA Performed on the TurnTideo 7 Pro RT-PCR System. Performing Lab [facility] Lab [facility] SERVICES Specimen Swab Performing Organization Address City/State/ZIP Code Phon e Number [facility] [address] [place] [address] SERVICES documented in this encounter Visit Diagnoses Not on filedocumented in this encounter Care Teams Finishing Frame Runner Relationship Specialty Start Date End Date Terri Bowser MD PCP - General 03/30/[address] [place] [id number] documented as of this encounter
--- OUTSIDE RECORDS SUMMARY | 2022-07-08 09:31 | XMS_ITS | Encounter Summary ---
:1945 Author Organization [facility] [place] [address] Care Team Providers Name Role Phone Terri Bowser MD Primary Care Provider Encounter Details Date Type Department Care Team Description 06/27/2021 Ancillary Procedure Radiology Library at Jaimie Bowser, [facility] [address] [address] [place] [address] [phone] Social History Tobacco Use Types Packs/Day Years Used Date Former Smoker Cigarettes 2 10 Quit: 07/19/19 77 Smokeless Tobacco: Never Used Alcohol Use Standard Drinks/Week Comments No 0 (1 standard drink = 0.6 oz pure alcoho l) Sex Assigned at Date Recorded Not on file documented as of this encounter Plan of Treatment Upcoming Encounters Date Type Specialty Care Team Description 02/26/2023 Office Visit Rheumatology Toño Rodriguez PA [facility] [address] [place], [place] [address] (Wo rk) documented as of this encounter Goals Goal Patient Goal Associated Recent Patient-Stated? Author Type Problems Progress DH Home Medication Patient No O'Dericr ke, Compliance and Facing Rachael Resendiz, Understanding Action Plan [facility] Note: Formatting of this note might be d ifferent from the original. Patient's goal is to decrease pain by 50 % over the next 6 months (current pain 7 out of 10, would like to get down to 3) documented as of this encounter Procedures Procedure Name Priority Date/Time Associated Diagnosis Comme nts FILM LIBRARY Routine 06/27/2021 5:25 PM Results f or this STORAGE ONLY DX HIP EDT procedur e are in the results section. documented in this encounter Results Film Library- Storage Only DX Hip (06/27/2021 5:25 PM EDT) Specimen (Source) Anatomical Location Collection Method / Collectio n Time Received Time / Laterality Volume Narrative [facility] - 06/27/2021 5:25 PM EDT This exam is auto-finalizing. It's purpo se is for storage only. Terri Bowser MD IMG FILM LIBRARY ORDERABLES Performing Organization Address City/State/ZIP Code Phon e Number [place], [place] documented in this encounter Visit Diagnoses Not on filedocumented in this encounter Care Teams Redeye Gunner Relationship Specialty Start Date End Date Terri Bowser MD PCP - General Family Medicine 07/02/17 [address] [place] [address] documented as of this encounter
--- OUTSIDE RECORDS SUMMARY | 2022-07-08 09:31 | XMS_ITS | Encounter Summary ---
:1945 Author Organization [facility] Address [address] [place] [address] Care Team Providers Name Role Phone Jennifer Silva KETURAH Primary Care Provider Encounter Details Date Type Department Care Team Description 03/25/[address] [facility]- [facility] Rosalino Vasquez, DO [address] [facility] [address] [place] [address] (Wo rk) Social History Tobacco Use Types Packs/Day Years Used Date Never Assessed Sex Assigned at Date Recorded Not on file documented as of this encounter Plan of Treatment Not on filedocumented as of this encounter Procedures Procedure Name Priority Date/Time Associated Diagnosis Comme [facility] SURGICAL PATHOLOGY Routine 03/25/2016 10:43 Resul ts for this EDT procedure are i n the results section. documented in this encounter Results SURGICAL PATHOLOGY (03/25/2016 10:43 EDT) Pathology SURGICAL PATHOLOGY REPORT [facility] Report: Reports generated via electronic interface conta in original data; [facility] however they are lacking the format of the original re port. SERVICES Caution should be taken when reading/interpreting unfo rmatted reports. Name: ? GALE KONG ? Accession #: ? [id number] ? : ? 1945 (Age: 71 ) ??F ? Collect Date: ? 03/25/2016 ? Location: ? [facility] ? Receive Date: ? 6 ? Provider: ROSALINO VASQUEZ DO Copy to: MACARENA VAUGHAN MD ? Final Pathologic Diagnosis: SOFT TISSUE OF FOREARM, LEFT, MASS, EXCISION: - ??Reactive synovium with fibrin deposition and myxoi d change. See comment. - ??Connective tissue with nodular fibrosis and granulation tissue formation. - ??Congo red on block (2) is negative for amyloid. Comment: Overall, the histologic features appear degenerative in nature. No significant inflammatory infiltrate is identified. Clinical correl ation is recommended. Cutting Room Supervisor sections have been reviewed at the intradepartmental consultation conference. Document reviewed and electronically signed by: NELSON OTOOLE MD Report ??Date: 03/31/2016 17:23 By the signature above, the attending physician certif ies that he/she has personally conducted a gross and/or microscopic examin ation of the described specimens and rendered or confirmed the above diagnosi s. Specimen(s) Received: Soft tissue mass left forearm Clinical History: Soft tissue mass left forearm Gross Description: ? Received in formalin labelled with proper patient identification (initials L, F) and soft tissue mass left forearm are th ree case-white nodular tissues (0.6 to 1.2 cm in greatest dimension). Sectioning disc loses a variable translucent white to yellow cut surface without hemorr margarita or necrosis. The largest piece is trisected and submitted in 1, and the remaining pieces are submitted in 2. Dr. Sexton 03/26/2016 3:27 PM End of Report Specimen Performing Organization Address City/State/ZIP Code Phon e Number [facility] [address] [place] [address] SERVICES documented in this encounter Visit Diagnoses Not on filedocumented in this encounter Care Teams Watch Crystal Molder Relationship Specialty Start Date End Date Jennifer Silva NP PCP - General 09/10/09 03/29/[address] [address] documented as of this encounter
--- OUTSIDE RECORDS SUMMARY | 2022-07-08 09:31 | XMS_ITS | Encounter Summary ---
:[address] [facility] Address [address] [place] [address] Care Team Providers Name Role Phone Jennifer Silva RACETRACK STEWARD Primary Care Provider Encounter Details Date Type Department Care Team Description 06/12/2003 Results Only [facility] - Jennifer [place] od, Alannah Renteria, KNOT BORER conversion [address] [place] [phone] (Wo rk) Social History Tobacco Use Types Packs/Day Years Used Date Never Assessed Sex Assigned at Date Recorded Not on file documented as of this encounter Plan of Treatment Not on filedocumented as of this encounter Procedures Procedure Name Priority Date/Time Associated Diagnosis Comme nts CYTOPATHOLOGY Routine 06/12/2003 0:00 EDT Results for this procedure are i n the results section . documented in this encounter Results CYTOPATHOLOGY (06/12/2003 0:00 EDT) Pathology Report: CYTOPATHOLOGY REPORT [facility] Reports generated via electronic interface contain davis ginal data; however they are lacking the format of the original re port. Caution should be taken when reading/interpreting unfo rmatted reports. Name: ? GALE KONG ? Accession #: ? [id number] : ? 1945 (Age: 58) ??F ?Collect Date: ? 05/20 Location: ? [facility] ? Receive Date : ? 06/14/2003 Provider: ?ALANNAH MAE KNOT BORER Copy to: ? Specimen/Source: ?ThinPrep Pap Test, Vagina/ Cervix Last Menstrual Period: ? 01/10/03 ? SPECIMEN ADEQUACY ? Satisfactory for Evaluation - transformation zone component present GENERAL CATEGORIZATION ? Negative for Intraepithelial Lesion or Malignan cy ? Document reviewed and electronically signed by: ? LARA Monroe(ASCP) ? Report Date: ??06/16/2003 15:18 End of Report Specimen Performing Organization Address City/State/ZIP Code Phon e Number [facility] [address] [phone] SERVICES [facility] [address] [place] [address] documented in this encounter Visit Diagnoses Not on filedocumented in this encounter Care Teams Wood Machinist Relationship Specialty Start Date End Date Jennifer Silva NP PCP - General 09/10/09 03/29/16 [facility] [address] [place], [place] [address] documented as of this encounter
--- OUTSIDE RECORDS SUMMARY | 2022-07-08 09:31 | XMS_ITS | Encounter Summary ---
:1945 Author Organization [facility] Address [address] [place] [address] Care Team Providers Name Role Phone Jennifer Silva CIGARETTE MAKING EXAMINER Primary Care Provider Encounter Details Date Type Department Care Team Description 03/25/2016 Hospital Encounter [facility]- Isaura Unknown, Provider, [facility] [address] [facility] [facility] [phone] [place] [address] (Work) [phone] Social History Tobacco Use Types Packs/Day Years Used Date Never Assessed Sex Assigned at Date Recorded Not on file documented as of this encounter Discharge Disposition Disposition Code Departure Means Destination Home or Self Fpc documented in this encounter Plan of Treatment Not on filedocumented as of this encounter Visit Diagnoses Not on filedocumented in this encounter Care Teams Custom Shop Worker Relationship Specialty Start Date End Date Jennifer Silva, CIGARETTE MAKING EXAMINER PCP - General 09/10/09 03/29/16 [facility] [address] [place], [place] [address] documented as of this encounter
--- OUTSIDE RECORDS SUMMARY | 2022-07-08 09:31 | XMS_ITS | Encounter Summary ---
:1945 Author Organization [facility] Address [address] [place] [address] Care Team Providers Name Role Phone Unavailable Primary Care Provider Unavailable Encounter Details Date Type Department Care Team Description 05/16/2008 Before PRISM Converted [facility] - Jennie Silva, Visit (Maple) Maple conversion SENIOR QUALITY MANAGER [address] [facility] [address] [place] [address] [place], [place] [phone] Social History Tobacco Use Types Packs/Day Years Used Date Never Assessed Sex Assigned at Date Recorded Not on file documented as of this encounter Plan of Treatment Not on filedocumented as of this encounter Procedures Procedure Name Priority Date/Time Associated Diagnosis Comme [facility] CY[facility]OLOGY Routine 05/16/2008 0:00 EDT Results for this procedure are i n the results section . documented in this encounter Results CYTOPATHOLOGY (05/16/2008 0:00 EDT) Pathology Report: CYTOPATHOLOGY REPORT ? [facility] ? [facility] Reports generated via electr onic interface contain original data; ? however they are lacking the format of the original report. ? Caution should be taken when reading/interpreting unformatted reports. ? Name: ? GALE KONG ? Accession #: ? [id number] ? : ? 1945 (Age: 63) ??F ?Collect Date: ? 05/16/2008 ? Location: ? [facility] ? Receive Date: ? 05/17/2008 ? Provider: ?SAVANNAH G TA FELICIA SENIOR QUALITY MANAGER ? Copy to: ? Specimen/Source: ? ThinPrep Pap Test, Vagina, processed on Cytyc ThinPrep ?? Imaging System, with manual evaluation ? Last Menstrual Period: ? 1961 ? SPECIMEN ADEQUACY ? Satisfactory for Eval uation ? - assessment of transformati on zone component not applicable ( e.g. atrophy, ? vaginal sample, hysterectomy ) ? GENERAL CATEGORIZATION ? Negative for Intraepi thelial Lesion or Malignancy ? INTERPRETATION ? Reactive cellular carrol nges associated with inflammation present (includes ?? repair). ? Document reviewed and electr onically signed by: ? Jhoanyn Mago, MBBCh ? Report Date: ??08/06/ 2008 08:28 ? End of Report ? Specimen Performing Organization Address City/State/ZIP Code Phon e Number [facility] [address] [place] [address] SERVICES [facility] [address] [place] [address] documented in this encounter Visit Diagnoses Not on filedocumented in this encounter
--- OUTSIDE RECORDS SUMMARY | 2022-07-08 09:31 | XMS_ITS | Encounter Summary ---
:1945 Author Organization [facility] [place] [address] Care Team Providers Name Role Phone Terri Bowser MD Primary Care Provider Reason for Visit Reason Onset Date Comments Medication Refill 08/02/2021 Encounter Details Date Type Department Care Team Description 08/02/2021 Refill Urology at [facility] Evens Ortiz Jr., MD Kidney stones [facility] [place] [address] UROLOGY DEPT. [phone] [place], [place] [address] (Wo rk) Social History Tobacco Use Types [...] 02/26/2023 Office Visit Rheumatology Toño Rodriguez PA [facility] [address] [place] [address] (Wo rk) documented as of this encounter Goals Goal Patient Goal Associated Recent Patient-Stated? Author Type Problems Progress DH Home Medication Patient No Dario'Errol moralez, Compliance and Facing Rachael Resendiz, Understanding Action Plan [facility] Note: Formatting of this note might be d ifferent from the original. Patient's goal is to decrease pain by 50 % over the next 6 months (current pain 7 out of 10, would like to get down to 3) documented as of this encounter Visit Diagnoses Diagnosis Kidney stones Calculus of kidney documented in this encounter Care Teams Java Software Engineer Relationship Specialty Start Date End Date Terri Bowser MD PCP - General Family Medicine 07/02/17 [address] [place] [address] documented as of this encounter
--- OUTSIDE RECORDS SUMMARY | 2022-07-08 09:31 | XMS_ITS | Encounter Summary ---
:1945 Author Organization [facility] [place] [address] [place] [address] Care Team Providers Name Role Phone Terri Bowser MD Primary Care Provider Reason for Visit Reason Comments Follow-up Encounter Details Date Type Department Care Team Description 02/26/2022 Office Visit Rheumatology at [facility] Toño Rodriguez Psoriatic arthritis (Primary Dx); [facility] AISHA Ortiz Fibromyalgia; [facility] High risk medication use; [place], [place] [address] Rodriguez, unspecified location; [id number] RHEUMATOLOGY Gastroesophageal reflux disease, unspeci fied whether esophagitis present; [phone] [place], [place] History of tim l stone; [address] History of tobacco abuse Social History Tobacco Use Types Packs/Day Years Used Date Former Smoker Cigarettes 2 10 Quit: 07/19/19 77 Smokeless Tobacco: Never Used Alcohol Use Standard Drinks/Week Comments No 0 (1 standard drink = 0.6 oz pure alcoho l) Sex Assigned at Date Recorded Not on file documented as of this encounter Last Filed Vital Signs Vital Sign Reading Time Taken Comments Blood Pressure 146/69 02/26/2022 10:55 AM EDT Pulse 65 02/26/2022 10:55 AM EDT Temperature - - Respiratory Rate 18 02/26/2022 10:55 AM EDT Oxygen Saturation 99% 02/26/2022 10:55 AM EDT Inhaled Oxygen Concentration - - Weight 87.2 kg (192 lb 4.8 oz) 02/26/2022 10:55 AM EDT Height 157.5 cm (5' 2) 02/26/2022 10:55 AM EDT Body Mass Index 35.17 02/26/2022 10:55 AM EDT documented in this encounter Patient Instructions Patient InstructionsSToño quispe PA - 02/26/2022 11:34 AM EDT -Follow up 1 year -4 weeks repeat labs at [facility] documented in this encounter Progress Notes Toño Rodriguez PA - 02/26/2022 11:00 AM EDTSummary: PsA. Rheumatology Outpatient Note Chart review conducted prior to the visit includes review of PMHx, medications, allergies, and prioroffice notes. The most pertinent findings are listed below. The Patient History Form was reviewed with the patient, which included review of ROS, social hx, pmhx, famhx, current and prior medications, allergies, IZs, and ADLs. The form is scanned into the patient's chart. History of Present Illness: Francisca Kong is a 76 y.o. female who presents today for evaluation of PsA. 8.30.21:Impression/Recommendations : Francisca Kong is a 76 y.o. female who presents today with history of psoriatic arthritis and history of PMR. Patient will follow up with her PCP and have updated ESR CRP to determine if her PMR is active. Some of her arthralgias some more like degenerative arthritis to me as opposed to a flare of underlying psoriatic arthritis. We will order x-rays of her hips for consideration of interarticular injections. Reviewed her medical choices given how easy she reportsshe gets ill I do not think it would be ly to place her on rheumatic medications at this time especially Biologics given her reported history of sepsis. We will see her again in follow-up in 6 months otherwise sooner for any changes patient in agreement with this plan. Interval History: Patient presents today for follow-up. She occasionally complains of pain in her back as well as her other joints. She takes Oxycodone for that on a as needed basis she finds it helpful although it doesn't completely relieve her arthralgias. She did have laboratory studies completed in October which showed normal inflammatory markers as well as a normal creatinine. She takes NSAIDs on a as needed basis. She has a history of heart issues and uric acid stones in the kidneys. She wouldlike to continue on naproxen as she finds that helpful enough. She does not feel she needs more helpthan that. Review of Systems Constitutional: Negative for anorexia, diaphoresis, absenteeism and chills. Respiratory: Negative for cough, shortness of breath, hemoptysis, orthopnea and pleuritic pain. Gastrointestinal: Negative for vomiting, diarrhea and trouble swallowing. HENT: Negative. Psychiatric/Behavioral: Negative for social aversion. Hematologic/Lymphatic: Negative. Allergic/Immunologic: Negative for recurrent infections and immunocompromised state. Musculoskeletal: Negative. Endocrine: Negative for polydipsia, polyphagia, polyuria and Cushingoid appearance. Cardiovascular: Negative for syncope. Skin: Negative for dry skin, urticaria, blister and erythema. Allergies Allergies Allergen Reactions ??? Albuterol Other (See Comments) SVT ??? Anesthetics - Amide Type - Select Amino Amides Shortness Of Breath ??? Anesthetics - Marlyn Type- Parabens Shortness Of Breath ??? Arava [Leflunomide] Shortness Of Breath ??? Citalopram Hydrobromide Shortness Of Breath ??? Clindamycin Anaphylaxis ??? Codeine Phosphate Palpitations ??? Diphenhydramine Hcl ??? Dye ??? Ephedrine ??? Epinephrine Palpitations ??? Escitalopram Oxalate Shortness Of Breath ??? Fluoxetine Hcl Shortness Of Breath and Palpitations ??? Iodinated Contrast Media ??? Lidocaine Palpitations LIdocaine with epinephrine ??? Methotrexate Other (See Comments) dyspnea ??? Other [Unclassified Drug] Anaphylaxis All Antihistamines. Allcontrast dyes -- ??? Penicillins Shortness Of Breath and Rash ??? Sulfa (Sulfonamide Antibiotics) Hives ??? Iodine And Iodide Containing Products Rash ??? Nsaids (Non-Steroidal Anti-Inflammatory Drug) Palpitations and Other (See Comments) Hypertension ??? Trimethoprim ??? Beta-Blockers (Beta-Adrenergic Blocking Agts) ??? Cephalexin ??? Etanercept Other reaction(s): clouding of eyes ??? Ether Hives ??? Fluoxetine ??? Gabapentin ??? Histamine Palpitations SVT's ??? Histamine H2 Inhibitors ??? Montelukast Sodium Diarrhea and Nausea And Vomiting ??? Morphine Sulfate Pt requests no morphine. ??? Sulfamethoxazole-Trimethoprim Medications Current Outpatient Medications on File Prior to Visit Medication Sig Dispense Refill ??? potassium citrate SR (Urocit) 10 mEq (1,080 mg) Tablet Sustained Release Take 2 tablets by mouth2 times daily. 360 tablet 3 ??? predniSONE (Deltasone) 10 mg Tablet Take 1 tablet by mouth daily. 7 tablet 0 ??? aspirin EC 81 mg Tablet, Delayed Release (E.C.) Take 81 mg by mouth daily. ??? predniSONE (Deltasone) 1 mg Tablet TAKE 4 TABLETS BY MOUTH DAILY FOR NOW WILL TAPER PER PROVIDERINSTRUCTIONS ??? sodium bicarbonate 650 mg Tablet TAKE ONE TABLET BY MOUTH THREE TIMES A DAY ??? metoprolol succinate XL (Toprol-XL) 25 mg Tablet Sustained Release 24 hr Half tab twice daily ??? citric acid-sodium citrate (Bicitra) 500-334 mg/5 mL Solution Take 15 mLs by mouth 3 times daily. 473 mL PRN ??? cycloSPORINE (Restasis) 0.05 % Dropperette 1 drop 2 times daily. ??? ammonium lactate (LAC-HYDRIN) 12 % Lotion ??? Asmanex Twisthaler 220 mcg/ actuation (60) Aerosol Powdr Breath Activated ??? pantoprazole EC (Protonix) 40 mg Tablet, Delayed Release (E.C.) TAKE ONE TABLET BY MOUTH TWICE ADAY 3 ??? Colace 2-In-1 8.6-50 mg Tablet TAKE ONE TO TWO TABLETS BY MOUTH EVERY DAY TWO TIMES A DAY NEEDED ??? docusate sodium (COLACE) 100 mg Capsule Take 100 mg by mouth 2 times daily as needed. ??? metFORMIN (GLUCOPHAGE) 500 mg Tablet Take 500 mg by mouth daily. ??? magnesium oxide (MAG-OX) 400 mg (241.3 mg magnesium) Tablet Take 400 mg by mouth daily. ??? rosuvastatin (CRESTOR) 10 mg Tablet Take 10 mg by mouth three times a week. ??? levalbuterol (XOPENEX) 0.31 mg/3 mL Solution for Nebulization Take 1 ampule by nebulization every 4 hours as needed for Wheezing. ??? NARCAN 4 mg/actuation [place], Non-Aerosol ??? lidocaine (LIDODERM) 5 % Adhesive Patch, Medicated Apply 1 patch onto the skin daily. (leave on for 12 hours and remove for 12 hours) 30 patch 3 ??? BD INSULIN PEN NEEDLE UF SHORT 31 gauge x 5/16 Needle USE THREE TIMES A DAY WITH HUMALOG INSULIN 3 ??? nitroGLYcerin (NITROSTAT) 0.4 mg Tablet, Sublingual as needed. ??? BISAC-EVAC 10 mg Suppository USE ONE SUPPOSITORY RECTALLY DAILY NEEDED 5 ??? ONETOUCH ULTRA TEST Strip TEST FIVE TIMES A DAY 3 ??? cholecalciferol, Vitamin D3, (VITAMIN D-3) 5,000 unit Tablet Take by mouth daily. ??? LEVEMIR FLEXTOUCH Insulin Pen 12 Units daily. 12 ??? BD INSULIN PEN NEEDLE UF MINI 31 gauge x 3/16 Needle USE ONCE DAILY WITH LEVEMIR 4 ??? calcium carbonate 648 mg calcium Tablet Take 650 mg by mouth 3 times daily (with meals). ??? lisinopril (PRINIVIL;ZESTRIL) 10 mg Tablet Take 5 mg by mouth daily. ??? fluticasone (FLONASE) 50 mcg/actuation [place], Suspension daily. ??? polyethylene glycol (MIRALAX) 17 gram Powder in Packet Take 17 g by mouth daily as needed. ??? Insulin Lispro (HUMALOG KWIKPEN) Insulin Pen Inject 2-22 Units subcutaneously 3 times daily as needed. ??? meclizine (ANTIVERT) 12.5 mg tablet Take 12.5 mg by mouth as needed. ??? OXYcodone (ROXICODONE) 5 mg immediate release tablet Take 5 mg by mouth daily as needed. ??? ascorbic acid (VITAMIN C) 1,000 mg tablet Take 1,000 mg by mouth as needed. ??? aspirin 325 mg tablet Take 81 mg by mouth daily. ??? OMEGA-3S/DHA/EPA/FISH OIL (OMEGA 3 ORAL) Take 4,800 mg by mouth 4 times daily. ??? rosuvastatin (CRESTOR) 5 mg tablet Take by mouth. 5 mg 4 times a week and 10mg 3 times a week ??? digoxin (LANOXIN) 125 mcg tablet Take 62.5 mcg by mouth daily. ??? acetaminophen (TYLENOL EXTRA STRENGTH) 500 mg tablet Take 1,000 mg by mouth 3 times daily as needed. Reported on 03/11/2017 ??? verapamil (CALAN) 40 mg tablet 40 mg, PO, Three times daily (Patient taking differently: 40 mg, PO, Three times daily, and 1 additional if needed) ??? Levalbuterol Tartrate (XOPENEX HFA) 45 mcg/Actuation inhaler 2 Puff(s), Inh, Q6H No current facility-administered medications on file prior to visit. PMHX Patient Active Problem List Diagnosis Code ??? Coronary artery disease I25.10 ??? DJD (degenerative joint disease) M19.90 ??? GERD (gastroesophageal reflux disease) K21.9 ??? Lipid disorder E78.9 ??? Psoriatic arthritis L40.50 ??? Reactive airway disease J45.909 ??? AMD (age related macular degeneration) H35.30 ??? Fibromyalgia M79.7 ??? Osteopenia M85.80 ??? History of tobacco abuse Z87.891 ??? HTN (hypertension) I10 ??? Diabetes mellitus type II E11.9 ??? Hyperlipidemia E78.5 ??? Paroxysmal SVT (supraventricular tachycardia) I47.1 ??? Asthma J45.909 ??? Major depression F32.9 ??? Irritable bowel K58.9 ??? Arthritis M19.90 ??? PTSD (post-traumatic stress disorder) F43.10 ??? COPD (chronic obstructive pulmonary disease) J44.9 ??? Bronchospasm J98.01 ??? Anxiety state, unspecified F41.1 ??? Hx of tobacco use, presenting hazards to health Z87.891 ??? Sinusitis J32.9 ??? Stomatitis K12.1 ??? 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 Neuropathy G62.9 ??? Chronic pain syndrome G89.4 ??? Food intolerance K90.49 ??? History of renal stone Z87.442 SurgHX Past Surgical History: Procedure Laterality Date ??? CARDIAC SURGERY ??? CATARACT REMOVAL OU sx with IOL Dr Kauffman in [facility] ??? CORONARY ANGIOPLASTY WITH STENT PLACEMENT 2007 ??? INTRAVITREAL INJECTION Left 12/26/08 [facility] ??? INTRAVITREAL INJECTION Left 01/23/09 [facility] ??? INTRAVITREAL INJECTION Left 02/27/09 [facility] ??? PRO CYSTO/URETEROSCOPY W/LITHOTRIPSY INC INDWELLING STENT INSERTION N/A 09/02/2019 CYSTOURETEROSCOPY,DIAGNOSTIC,W/ LITHOTRIPSY INC. INSERTION OF INDWELLING URETERAL STENT (WRVU 8) performed by Reinaldo Norman MD at [facility] OR ??? PRO CYSTOSCOPY, INSERT URETERAL STENT Left 07/21/2019 CYSTO, STENT PLACEMENT (WRVU 2.82) performed by Lupillo Bhatia MD at [facility] OR ??? PRO CYSTOSCOPY, INSERT URETERAL STENT N/A 09/02/2019 CYSTO, STENT PLACEMENT (WRVU 2.82) performed by Reinaldo Norman MD at [facility] OR ??? PRO CYSTOSCOPY, REMV CALCULUS, SIMPLE N/A 09/02/2019 CYSTO, REMOVAL OF STENT, FOREIGN BODY OR CALCULUS, SIMPLE (WRVU 2.81) performed by Reinaldo Norman MD at [facility] OR ??? PRO CYSTOURETHROSCOPY, URETER CATHETER N/A 09/02/2019 CYSTO, RETROGRADE, URETEROPYELOGRAPHY (WRVU 2.37) performed by Reinaldo Norman MD at [facility] Physical Examination: BP 146/69 Pulse 65 Resp 18 Ht 157.5 cm (5' 2) Wt 87.2 kg (192 lb 4.8 oz) SpO2 99% BMI 35.17 kg/m?? Musculoskeletal: No peripheral synovitis noted osteoarthritic features throughout Physical Exam Constitutional: General: She is not in acute distress. Appearance: She is normal weight. She is not ill-appearing, toxic-appearing or diaphoretic. HENT: Head: Normocephalic and atraumatic. Right Ear: External ear normal. Left Ear: External ear normal. Eyes: General: No scleral icterus. Right eye: No discharge. Left eye: No discharge. Conjunctiva/sclera: Conjunctivae normal. Cardiovascular: Heart sounds: No friction rub. No gallop. Pulmonary: Effort: Pulmonary effort is normal. No respiratory distress. Breath sounds: Normal breath sounds. No stridor. No wheezing, rhonchi or rales. Chest: Chest wall: No tenderness. Abdominal: Palpations: Abdomen is soft. Tenderness: There is no guarding or rebound. Musculoskeletal: General: No swelling or tenderness. Skin: General: Skin is warm and dry. Coloration: Skin is not jaundiced or pale. Findings: No bruising, erythema, lesion or rash. Neurological: Mental Status: She is alert and oriented to person, place, and time. Motor: No weakness. Psychiatric: Mood and Affect: Mood normal. Behavior: Behavior normal. Thought Content: Thought content normal. Judgment: Judgment normal. Impression/Recommendations : Francisca Kong is a 76 y.o. female who presents today with psoriatic arthritis and osteoarthritis with smoldering arthralgias patient requesting prescription for NSAID, naproxen. Suggest she checks in with her ward assistant to see whether or not they are comfortable with her utilizing as needed naproxen given her history. Should they agree we will repeat her laboratory studies in about 4 weeks after starting further changes pending her clinical course. documented in this encounter Plan of Treatment Upcoming Encounters Date Type Specialty Care Team Description 02/26/2023 Office Visit Rheumatology Toño Rodriguez PA [facility]HE[facility] [place], [place] [address] (Wo rk) documented as of this encounter Goals Goal Patient Goal Associated Recent Patient-Stated? Author Type Problems Progress DH Home Medication Patient No O'Rour ke, Compliance and Facing Rachael Resendiz, Understanding Action Plan [facility] Note: Formatting of this note might be d ifferent from the original. Patient's goal is to decrease pain by 50 % over the next 6 months (current pain 7 out of 10, would like to get down to 3) documented as of this encounter Visit Diagnoses Diagnosis Psoriatic arthritis - Primary Psoriatic arthropathy Fibromyalgia Mylagia and myositis, unspecified High risk medication use Encounter for long-term (current) use of other medications Osteopenia, unspecified location Gastroesophageal reflux disease, unspeci fied whether esophagitis present History of renal stone Personal history of urinary calculi History of tobacco abuse Personal history of tobacco use, present ing hazards to health documented in this encounter Care Teams Retail Representative Relationship Specialty Start Date End Date Terri Bowser MD PCP - General Family Medicine 07/02/17 [address] [place] [address] documented as of this encounter
--- OUTSIDE RECORDS SUMMARY | 2022-07-08 09:31 | XMS_ITS | Encounter Summary ---
:1945 Author Organization [facility] [address] Care Team Providers Name Role Phone Terri Bowser MD Primary Care Provider Encounter Details Date Type Department Care Team Description 05/22/2021 Telephone Urology at [facility] [place] Reinaldo Norman MD [facility] [place] [id number] UROLOGY DEPT [phone] [place], [place] [address] (Wo rk) Social History Tobacco Use Types Packs/Day Years Used Date Former Smoker Cigarettes 2 10 Quit: 07/19/19 77 Smokeless Tobacco: Never Used Alcohol Use Standard Drinks/Week Comments No 0 (1 standard drink = 0.6 oz pure alcoho l) Sex Assigned at Date Recorded Not on file documented as of this encounter Miscellaneous Notes Telephone Encounter - Valerie Martinez RN - 05/22/2021 12:16 PM EDT Returned Radha's call to let her know Dr. Norman is okay with non con CT abd/pelvis. Will fax updated order to [phone] per Radha's request. Telephone Encounter - Casper Santillantah Diana - 05/22/2021 10:54 AM EDT Radha calling from Radiology at [facility], got patient scheduled for the CT Urogram and at the end of the call the patient said that he had a reaction to the contrast back in the late 1969's and hasn't had contrast since. She is unable to get pre medicated as she is allergic to the antihistamins in it. If we are okay to proceed with changing the order to a CT abd and pelv w/out contrast, the order canbe faxed to [facility] and call Radha at [phone] to let her know how we are proceeding. documented in this encounter Plan of Treatment Upcoming Encounters Date Type Specialty Care Team Description 02/26/2023 Office Visit Rheumatology Toño Rodriguez PA [facility] [place], [place] [address] (Wo rk) documented as of this encounter Goals Goal Patient Goal Associated Recent Patient-Stated? Author Type Problems Progress DH Home Medication Patient No O'Rour ke, Compliance and Facing Rachael Resendiz, Understanding Action Plan [facility] Note: Formatting of this note might be d ifferent from the original. Patient's goal is to decrease pain by 50 % over the next 6 months (current pain 7 out of 10, would like to get down to 3) documented as of this encounter Visit Diagnoses Not on filedocumented in this encounter Care Teams Bill Collector Relationship Specialty Start Date End Date Terri Bowser MD PCP - General Family Medicine 07/02/17 [address] [place] [address] documented as of this encounter
--- OUTSIDE RECORDS SUMMARY | 2022-07-08 09:31 | XMS_ITS | Clinical Summary ---
:1945 Author Organization [facility] [place] [address] Care Team Providers Name Role Phone Terri Bowser MD Primary Care Provider Allergies Active Allergy Reactions Severity Noted Date Comments Albuterol Other (See Comments) High 08/09/2019 SVT Anesthetics - Amide Type Shortness Of Breath High - Select Amino Amides Anesthetics - Marlyn Shortness Of Breath High Type- Parabens Leflunomide Shortness Of Breath High 03/26/2021 Beta-Blockers (Beta-Adrenergic Blocking Agts) Cephalexin 11/08/2019 Citalopram Hydrobromide Shortness Of Breath High Clindamycin Anaphylaxis High 04/16/2016 Codeine Phosphate Palpitations High Diphenhydramine Hcl High 07/18/2019 Dye High 03/15/2019 Ephedrine High 07/18/2019 Epinephrine Palpitations High Escitalopram Oxalate Shortness Of Breath High Etanercept 04/12/2021 Other reaction( s): clouding of eye s Ether Hives Fluoxetine 11/08/2019 Fluoxetine Hcl Shortness Of Breath, High Palpitations Gabapentin 11/08/2019 Histamine Palpitations SVT's Histamine H2 Inhibitors 07/18/2019 Iodinated Contrast Media High 07/18/2019 Iodine And Iodide Rash Medium Containing Products Lidocaine Palpitations High LIdocaine with epinephrine Methotrexate Other (See Comments) High 12/26/2015 dyspnea Montelukast Sodium Diarrhea, Nausea And Vomiting Morphine Sulfate Pt requests no morphine. Nsaids (Non-Steroidal Palpitations, Other Medium Hypertension Anti-Inflammatory Drug) (See Comments) Unclassified Drug Anaphylaxis High 06/09/2012 All Antihi stamines. Allcontrast dye s ??-- Penicillins Shortness Of Breath, High Rash Sulfa (Sulfonamide Hives High Antibiotics) Sulfamethoxazole-Trimeth 11/08/2019 oprim Trimethoprim Medium 04/12/2021 Medications Medication Sig Dispensed Refills Start Date End Date Status verapamil (CALAN) 40 mg, PO, Three 0 10/04/2010 Active 40 mg tablet times daily Levalbuterol 2 Puff(s), Inh, Q6H 0 10/04/2010 Active Tartrate (XOPENEX HFA) 45 mcg/Actuation inhaler acetaminophen Take 1,000 mg by 0 Active (TYLENOL EXTRA mouth 3 times daily STRENGTH) 500 mg as needed. Reported tablet on 03/11/2017 digoxin (LANOXIN) Take 62.5 mcg by 0 Active 125 mcg tablet mouth daily. rosuvastatin Take by mouth. 5 mg 0 Active (CRESTOR) 5 mg 4 times a week and tablet 10mg 3 times a week ascorbic acid Take 1,000 mg by 0 Active (VITAMIN C) 1,000 mouth as needed. mg tablet OMEGA-3S/DHA/EPA/FI Take 4,800 mg by 0 Active SH OIL (OMEGA 3 mouth 4 times daily. ORAL) OXYcodone Take 5 mg by mouth 0 A ctive (ROXICODONE) 5 mg daily as needed. immediate release tablet meclizine Take 12.5 mg by 0 12/12/2013 Act ana (ANTIVERT) 12.5 mg mouth as needed. tablet Insulin Lispro Inject 2-22 Units 0 Active (HUMALOG KWIKPEN) subcutaneously 3 Insulin Pen times daily as needed. polyethylene glycol Take 17 g by mouth 0 Active (MIRALAX) 17 gram daily as needed. Powder in Packet fluticasone daily. 0 12/11/2015 Active (FLONASE) 50 mcg/actuation [place], Suspension calcium carbonate Take 650 mg by mouth 0 Active 648 mg calcium 3 times daily (with Tablet meals). ONETOUCH ULTRA TEST TEST FIVE TIMES A 3 06/10/2016 Active Strip DAY cholecalciferol, Take by mouth daily. 0 Active Vitamin D3, (VITAMIN D-3) 5,000 unit Tablet BD INSULIN PEN USE ONCE DAILY WITH 4 07/02/2016 Active NEEDLE UF MINI 31 LEVEMIR gauge x 3/16 Needle BD INSULIN PEN USE THREE TIMES A 3 03/30/2017 Active NEEDLE UF SHORT 31 DAY WITH HUMALOG gauge x 5/16 INSULIN Needle nitroGLYcerin as needed. 0 04/27/2017 Acti ve (NITROSTAT) 0.4 mg Tablet, Sublingual BISAC-EVAC 10 mg USE ONE SUPPOSITORY 5 03/03/2017 Active Suppository RECTALLY DAILY NEEDED levalbuterol Take 1 ampule by 0 Active (XOPENEX) 0.31 mg/3 nebulization every 4 mL Solution for hours as needed for Nebulization Wheezing. NARCAN 4 0 06/04/2017 Active mg/actuation [place], Non-Aerosol lidocaine Apply 1 patch onto 30 patch 3 07/02/2017 Active (LIDODERM) 5 % the skin daily. Adhesive Patch, (leave on for 12 Medicated hours and remove for 12 hours) rosuvastatin Take 10 mg by mouth 0 08/13/2017 Active (CRESTOR) 10 mg three times a week. Tablet magnesium oxide Take 400 mg by mouth 0 Active (MAG-OX) 400 mg daily. (241.3 mg magnesium) Tablet docusate sodium Take 100 mg by mouth 0 Active (COLACE) 100 mg 2 times daily as Capsule needed. ammonium lactate 0 11/02/2019 Ac tive (LAC-HYDRIN) 12 % Lotion Asmanex Twisthaler 0 10/25/2019 Active 220 mcg/ actuation (60) Aerosol Powdr Breath Activated pantoprazole EC TAKE ONE TABLET BY 3 08/05/2019 Active (Protonix) 40 mg MOUTH TWICE A DAY Tablet, Delayed Release (E.C.) Colace 2-In-1 TAKE ONE TO TWO 0 10/17/2019 Active 8.6-50 mg Tablet TABLETS BY MOUTH EVERY DAY TWO TIMES A DAY NEEDED cycloSPORINE 1 drop 2 times 0 Ac tive (Restasis) 0.05 % daily. Dropperette metoprolol Take 25 mg by mouth 0 05/14/2020 Active succinate XL daily. (Toprol-XL) 25 mg Tablet Sustained Release 24 hr citric acid-sodium Take 15 mLs by mouth 473 mL 05/29/2020 Active citrate (Bicitra) 3 times daily. 500-334 mg/5 mL Solution aspirin EC 81 mg Take 81 mg by mouth 0 Active Tablet, Delayed daily. Release (E.C.) sodium bicarbonate TAKE ONE TABLET BY 0 11/28/2020 Active 650 mg Tablet MOUTH THREE TIMES A DAY potassium citrate Take 2 tablets by 360 tablet 3 08/02/2021 Active SR (Urocit) 10 mEq mouth 2 times daily. (1,080 mg) Tablet Sustained ReleaseIndications: Kidney stones Omnipod Dash Pods, APPLY ONE DEVICE 0 02/10/2022 Active Gen 4, Cartridge DIRECTED EVERY 48 HOURS- CHANGE POD EVERY TWO DAYS lisinopriL Take 5 mg by mouth 0 04/21/2022 Active (Zestril) 5 mg daily. Tablet metFORMIN XR TAKE ONE TABLET BY 0 05/03/2022 Active (Glucophage XR) 500 MOUTH EVERY DAY AT mg Tablet Sustained DINNER Release 24 hr predniSONE Take 5 mg by mouth 0 02/15/2022 Active (Deltasone) 5 mg daily. TAKE Tablet DIRECTED predniSONE Take one tablet by 3 tablet 0 05/20/2022 Active (Deltasone) 50 mg mouth at 13 hours, 7 TabletIndications: hours and 1 hour Renal cyst, prior to scheduled acquired exam Active Problems Patient Care Coordination Note Formatting of this note might be differe nt from the original. Patient due for Prevnar vaccine; immuniz ation history reconciled. - Sandra Jackson LPN 06/30/2013 Problem Noted Date History of renal stone 11/27/2020 Osteopenia 02/09/2013 Overview: Addendum: PRIMARY EXAM : XCSP3 CERVICAL SPINE MIN 4 VIEWS ASSOCIATED EXAM: FINAL REPOR T CERVICAL SPINE, 08/13/10: INDICATION: Pain, stiffness, radicular s ymptoms. Compare to 2005. TECHNIQUE: AP, neutral lateral, flexion lateral, left and right oblique projections. COMPARISON: 03/31/06. FINDINGS: As before, Grade I retrolisthe sis of C5 relative to C4 and C6 with C5-C6 intervertebral disk space narrowin g and degenerative changes, similar to prior, perhaps slightly increased degene rative change and disk space narrowing perhaps. No significant change in the re lationship on flexion and extension views. Similar uncovertebral arthropathi c changes. Some neural foraminal narrowing appears similar to prior, left greater than right through the mid cervical spine, perhaps minimally increa sed compared to the 2006 examination. IMPRESSION: Similar appearance of degenerative silva es and neural foraminal narrowing compared to 2006, with mild interval pro gression. LUMBAR SPINE, 02/28/10: TECHNIQUE: AP view and lateral, and spot views of the lumbar spine. COMPARISON STUDY: None. HISTORY: Psoriatic arthritis with pain i n the lumbar spine and right buttock. Question vertebral fracture or DJD. FINDINGS: The patient has five non-rib b earing, lumbar-type vertebral bodies. T12 has a single rudimentary rib on the left. No fracture is seen. There is Grade I anterolisthesis of L5 on S1, wit h accompanying degenerative changes of the L5-S1 facets. No spondylolysis is se en. Degenerative changes are seen at T12 to L1, characterized by disc space narrowing and marginal osteophyte format ion. IMPRESSION: No fracture is seen. Grade I anterolisth esis of L5 on S1, with accompanying severe degenerative changes of the facet s at this level. Moderate disc space narrowing and marginal osteophyte format ion at T12 to L1. Film and interpretation reviewed by the attending 12/2008 - BILATERAL HANDS AND BILATERAL FEET: INDICATION: Psoriatic arthritis. Hand, w rist, foot pain, stiffness, and swelling. Assess progression of dise ase. TECHNIQUE: Four views of both hands and three views of both feet are compared to 03/31/06. FINDINGS: HANDS: There has been subtle mild bilate ral, left slightly greater than right basilar joint arthropathic ch anges, as well as not definitely changed mild interphalangeal joint space narrowing of interphalangeal joints, with minimal ost eophyte formation such as at the left thumb interphalangeal joint. Pr eviously mentioned equivocal metacarpal base lucencies that could ref lect erosions are not changed and, therefore, they are felt to be unli joyce due to erosions. On the lateral view, some mild osteophyte forma tion of the distal interphalangeal joints of both index fin gers/second digits, stable to minimally increased. FEET: Stable appearance of the lateral a spect of the right fifth metatarsal head and the base of the righ t fifth toe proximal phalanx. No definite new areas of concern. As bef ore, pes planus is noted. Reviewed -> DEXA EXAMINATION, 05/01/11: HISTORY: 66-year-old estrogen deficient white female on low-dose prednisone. COMPARISON STUDY: 2008. FINDINGS: The left forearm and left hip measurements are acquired. When compared to the 2009 examination, there is a 14.8% increase in her left hip and 3.3% decrease in her distal one-third ra dius, respectively. IMPRESSION: Her lowest T-score of -2.2 is from her f emoral neck. This fulfills the WHO classification for low bone mass or oste openia. There is discordant change with a small decrease in her left distal forearm and a marked increase in her left hip measurements. Discordant change s are not uncommon and consider continued monitoring, if indicated. History of tobacco abuse 02/09/2013 HTN (hypertension) 02/09/2013 Diabetes mellitus type II 02/09/2013 Hyperlipidemia 02/09/2013 Paroxysmal SVT (supraventricular tachycardia) 02/10/20 13 Asthma 02/09/2013 Major depression 02/09/2013 Irritable bowel 02/09/2013 Arthritis 02/09/2013 PTSD (post-traumatic stress disorder) 02/09/2013 COPD (chronic obstructive pulmonary disease) 3 Bronchospasm 02/09/2013 Anxiety state, unspecified 02/09/2013 Hx of tobacco use, presenting hazards to health 2012 Sinusitis 02/09/2013 Stomatitis 02/09/2013 Macular degeneration, wet 02/09/2013 Nerve entrapment 02/09/2013 Neuropathy 02/09/2013 Chronic pain syndrome 02/09/2013 Food intolerance 02/09/2013 Overview: RASHES Fibromyalgia 07/27/2012 AMD (age related macular degeneration) 03/24/2012 Coronary artery disease DJD (degenerative joint disease) GERD (gastroesophageal reflux disease) Lipid disorder Psoriatic arthritis Reactive airway disease Encounters Date Type Specialty Care Team Description 06/26/2022 Telephone Urology Buck Norman MD 06/26/2022 Telephone Urology Buck Norman MD 06/12/2022 Telephone Urology Evens Ortiz Jr., MD 05/23/2022 Orders Only Urology Buck Norman MD Rena l cyst, acquired 05/20/2022 Telephone Urology Buck Norman MD 05/19/2022 Office Visit Urology Buck Norman MD Rena l cyst, acquired 05/19/2022 Hospital Encounter Radiology Buck Norman M D Renal cyst, acquired 05/08/2022 Abstract Urology Valerie Martinez RN from Last 3 Months Immunizations Name Administration Dates Next Due Influenza Vaccine w/Preservative, 08/02/2015, 07/19/2013, Split Pneumococcal Conjugate (13 Valent) 02/13/2014 (Deferred: Pat ient Refused) Pneumococcal Polyvalent 23 08/11/2007 Tuberculin Skin Test, PPD 08/20/2005, 08/01/2004 Family History Medical History Relation Comments Cancer Daughter Heart Disease Mother Amblyopia Neg Hx Blindness Neg Hx Cataracts Neg Hx Diabetes Neg Hx Glaucoma Neg Hx Hypertension Neg Hx Macular Degeneration Neg Hx Retinal Detachment Neg Hx Strabismus Neg Hx Stroke Neg Hx Thyroid Disease Neg Hx Relation Status Comments Daughter Grandchild Alive Mother Son Alive Social History Tobacco Use Types Packs/Day Years Used Date Former Smoker Cigarettes 2 10 Quit: 07/19/19 77 Smokeless Tobacco: Never Used Alcohol Use Standard Drinks/Week Comments No 0 (1 standard drink = 0.6 oz pure alcoho l) Sex Assigned at Date Recorded Not on file Last Filed Vital Signs Vital Sign Reading Time Taken Comments Blood Pressure 135/98 05/19/2022 11:02 AM EDT Pulse 73 05/19/2022 11:02 AM EDT Temperature 37.1 ??C (98.7 ??F) 01/24/2021 10:48 AM EDT Respiratory Rate 18 02/26/2022 10:55 AM EDT Oxygen Saturation 98% 05/19/2022 11:02 AM EDT Inhaled Oxygen Concentration - - Weight 87.2 kg (192 lb 4.8 oz) 02/26/2022 10:55 AM EDT Height 157.5 cm (5' 2) 02/26/2022 10:55 AM EDT Body Mass Index 35.17 02/26/2022 10:55 AM EDT Plan of Treatment Upcoming Encounters Date Type Specialty Care Team Description 02/26/2023 Office Visit Rheumatology Toño Rodriguez PA [facility] [place] [address] (Wo rk) Health Maintenance Due Date Last Done Comments Covid-19 Vaccine (#1) 1950 Hepatitis C Screening 1961 Tdap adult 1962 Tetanus vaccine 1962 Zoster vaccine (1 of 2) 1993 Pneumoccocal Vaccine: 65+ (2 - 08/11/2008 08/11/2007 PCV) DM Hemoglobin A1c 06/07/2015 03/07/2015, 06/29/2013, 07/27/2012 DM Urine Microalbumin yearly 03/15/2020 03/15/2019, 015, 06/29/2013 DM Creatinine yearly 01/24/2022 01/24/2021, 04/16/2016, 03/07/2015, Additional history exists Influenza (Flu) vaccine (1 of 1 - 06/19/2022 08/02/2015, , Influenza standard series) 08/04/2012 DM Opthalmology Exam 02/26/2023 02/26/2022, 05/04/2019, 04/27/2018, Additional history exists Bone Density Scan Completed 06/29/2014, 05/01/2011 Goals Goal Patient Goal Associated Recent Patient-Stated? Author Type Problems Progress DH Home Medication Patient No O'Rour ke, Compliance and Facing Rachael Resendiz, Understanding Action Plan [facility] Note: Formatting of this note might be d ifferent from the original. Patient's goal is to decrease pain by 50 % over the next 6 months (current pain 7 out of 10, would like to get down to 3) Medical Devices Explanted Type Area Head Doffer Device Shelf Model / Identifier Expiration Serial / Lot Date Stent,Contour-Vl,[id number] ([id number]) - [id number] IMPLANTS Left: BOSTON 03/23/2022 [id number] / Implanted: Qty: 1 on 07/21/2019 by Lupillo Bhatia MD at [facility] [id number] / Explanted: Qty: 1 on 09/02/2019 at [facility] - [id number] [employer] Stent,Uret,Univ,Soft,6fr,20cm ([id number]) - [id number] IMPLANTS Left: BOSTON 04/13/2022 [id number] / Implanted: Qty: 1 on 09/02/2019 by Buck Norman MD at [facility] [employer] / Explanted: Qty: 1 on 09/13/2019 by Buck Norman MD CORPORATION - [id number] [employer] Procedures Procedure Name Priority Date/Time Associated Comments Diagnosis US RETROPERITONEAL Routine 05/19/2022 10:38 Renal cyst, Resul ts for this COMPLETE AM EDT acquired procedure are i n the results section. from Last 3 Months Results US Retroperitoneal Complete (05/19/2022 10:38 AM EDT) Anatomical Region Laterality Modality Abdomen Ultrasound Specimen (Source) Anatomical Collection Method Collection Time Re ceived Time Location / / Volume Laterality 05/19/2022 10:40 AM EDT Impressions 05/19/2022 11:40 AM EDT 1. As seen on the prior comparison exam s, there is a complex cystic lesion in the right upper pole versus multiple ad jacent simple cysts. There continues to be interval enlargement from prior exam s, particularly of the dominant cystic component at the superior margin. Inter vening thin avascular septations remain present. While this was evaluated with CT following the last examination, the CT was noncontrast and thus not definitive for exclusion of mural nodularity or enhancing septations. While the overall picture from all of these examinations is reassuring, given the size increase, a more aggressive process is not completely excluded. Contrast-enhanced imaging would be more definitive as clinically indicated. 2. The exophytic lower pole cyst also h as an echogenic septation, though this shows more long-term stability. 3. Normal left kidney. 4. Ureters not visible at the level of a minimally distended bladder. Electronically signed by: Get bowling MD, [facility] ([phone]), at 05/19/2022 11:33 AM Thank you for letting us participate in the care of this patient. If you are a health care merged with [facility] and have any questions regarding this report, please contact the number above. For patients who have ques tions, please [facility]. ?Get Agustin, Staff Physician Electronically Signed Final Report ?? 11:39 am Narrative 05/19/2022 11:40 AM EDT Renal ? (Signed Final 05/19/2022 11:39 am) PATIENT INFO: ID #: ? [id number] ?: ??[birth year] (77 yrs)(F) Name: ? GALE NUNEZ ? Visit Date: 05/19/2022 10:40 am PERFORMED BY: Performed By: ? Damaso LOU, Venu miller Attending: ?Vamsi NANCE, Odessa mendez Referred By: ?BUCK NORMAN Location: ? [place] SERVICE(S) PROVIDED: URETRO - Retroperitoneal Complete - IMG [id number] ? [id number] INDICATIONS: renal cysts COMPARISON: CT 05/22/21 US 05/20/21 RIGHT KIDNEY: Size (cm) ?L: ??15.2 Cortical Thickness: ?Normal Cortical Echogenicity: ?? Normal Hydronephrosis: ?No sonogr aphic evidence Comment: ?Sup cluster of cysts ronni uring 2.0 x 1.7 x 3.7 cm. ? Inferior cyst with ca lcified areas within measuing ? 5.7 x 7.0 x 6.3 cm LEFT KIDNEY: Size (cm) ?L: ??10.5 Cortical Thickness: ?Normal Cortical Echogenicity: ?? Normal Hydronephrosis: ?No sonogr aphic evidence URINARY BLADDER: Pre-void (cm) ? L: ??1.4 ? A P: ??5.9 ? TV: ??3.7 Vol (ml): ?16.0 Comment: ?Partially distended, norm al contour. Procedure Note Get Agustin MD - 05/19/2022Format ting of this note might be different from the original. Renal (Signed Final 05/19/2022 11:39 am ) PATIENT INFO: ID #: [id number] : [birth year] (77 y rs)(F) Name: GALE NUNEZ Visit Date: 2021 10:40 am PERFORMED BY: Performed By: Allison Petit RDMS Attending: Get Agustin MD Referred By: BUCK NORMAN Location: [place] SERVICE(S) PROVIDED: URETRO - Retroperitoneal Complete - IM [id number] INDICATIONS: renal cysts COMPARISON: CT 05/22/21 US 05/20/21 RIGHT KIDNEY: Size (cm) L: 15.2 Cortical Thickness: Normal Cortical Echogenicity: Normal Hydronephrosis: No sonographic evidence Comment: Sup cluster of cysts measuring 2.0 x 1.7 x 3.7 cm. Inferior cyst with calcified areas with in measuing 5.7 x 7.0 x 6.3 cm LEFT KIDNEY: Size (cm) L: 10.5 Cortical Thickness: Normal Cortical Echogenicity: Normal Hydronephrosis: No sonographic evidence URINARY BLADDER: Pre-void (cm) L: 1.4 AP: 5.9 TV: 3.7 Vol (ml): 16.0 Comment: Partially distended, normal co ntour. IMPRESSION 1. As seen on the prior comparison exam s, there is a complex cystic lesion in the right upper pole versus multiple ad jacent simple cysts. There continues to be interval enlargement from prior exam s, particularly of the dominant cystic component at the superior margin. Inter vening thin avascular septations remain present. While this was evaluated with CT following the last examination, the CT was noncontrast and thus not definitive for exclusion of mural nodularity or enhancing septations. While the overall picture from all of these examinations is reassuring, given the size increase, a more aggressive process is not completely excluded. Contrast-enhanced imaging would be more definitive as clinically indicated. 2. The exophytic lower pole cyst also h as an echogenic septation, though this shows more long-term stability. 3. Normal left kidney. 4. Ureters not visible at the level of a minimally distended bladder. Electronically signed by: Get bowling MD, [facility] ([phone]), at 05/19/2022 11:33 AM Thank you for letting us participate in the care of this patient. If you are a [facility] and have any questions regarding this report, please contact the number above. For patients who have ques tions, please contact the [facility] nal that requested your imaging first. Get Agustin, Staff Physician Electronically Signed Final Report 05/19 11:39 am Buck Norman MD IMG US GEN ORDERABLES from Last 3 Months Insurance Payer Benefit Plan / Subscriber ID Effective Dates Phone Addre ss Type Group MEDICARE MEDICARE PART [id number] 2008-Presen [phone] [place] [address] SPECIAL SPECIAL NA 2019-Prese [phone] [place] [address] [place] [id number] 2019-Prese [phone] [address] [place] [address] [phone]Home) [place] [id number] Hospital Client Other [phone] Attn Ashley [address] (Home) [address],Client [phone] [facility] [address] (Work) [place] [address] Advance Directives Documents on File Type Date Recorded Patient Procurement Agent Explanati on Advance Directives and Living 12/18/2010 10:01 AM Will Latest Code Status on File Code Status Date Activated Date Inactivated Comments Full Code 09/02/2019 7:43 AM 09/02/2019 12:20 PM Does patient have capacity to make decision: Yes Full Code 09/02/2019 7:29 AM 09/02/2019 7:43 AM Does patient have capacity to make decision: Yes Full Code 07/21/2019 11:07 AM 07/21/2019 3:54 PM Does patient have capacity to make decision: Yes Care Teams Quality Assurance Supervisor Final Relationship Specialty Start Date End Date Terri Bowser MD PCP - General Family Medicine 07/02/17 [address] [place] [address]
--- OUTSIDE RECORDS SUMMARY | 2022-07-08 09:31 | XMS_ITS | Encounter Summary ---
:1945 Author Organization [place] [address] Care Team Providers Name Role Phone Terri Bowser MD Primary Care Provider Reason for Visit Reason Onset Date Comments Questions 02/06/2021 Encounter Details Date Type Department Care Team Description 02/06/2021 Telephone Rheumatology [place] [facility] [place] [address] Social History Tobacco Use Types Packs/Day Years Used Date Former Smoker Cigarettes 2 10 Quit: 07/19/19 77 Smokeless Tobacco: Never Used Alcohol Use Standard Drinks/Week Comments No 0 (1 standard drink = 0.6 oz pure alcoho l) Sex Assigned at Date Recorded Not on file documented as of this encounter Miscellaneous Notes Telephone Encounter - Noe Manzanares RN - 02/06/2021 9:01 AM EDT Patient calls clinic regarding Arava. Was to start on Arava. Was advised by pharmacist to wait 14 days after covid vaccination before starting. Will start today and have labs done 1 month after starting Arava, [facility]. Orders sent. documented in this encounter Plan of Treatment Upcoming Encounters Date Type Specialty Care Team Description 02/26/2023 Office Visit Rheumatology Toño Rodriguez PA [facility] [place] [place] [address] (Wo rk) documented as of this encounter Goals Goal Patient Goal Associated Recent Patient-Stated? Author Type Problems Progress DH Home Medication Patient No O'Rour ke, Compliance and Facing Rachael Resendiz, Understanding Action Plan [facility] Note: Formatting of this note might be d ifferent from the original. Patient's goal is to decrease pain by 50 % over the next 6 months (current pain 7 out of 10, would like to get down to 3) documented as of this encounter Visit Diagnoses Not on filedocumented in this encounter Care Teams Microstrategy Architect Relationship Specialty Start Date End Date Terri Bowser MD PCP - General Family Medicine 07/02/17 [address] [place] [address] documented as of this encounter
--- OUTSIDE RECORDS SUMMARY | 2022-07-08 09:31 | XMS_ITS | Encounter Summary ---
:1945 Author Organization [facility] Address [address] [place] [address] Care Team Providers Name Role Phone Jennifer Ledesma BEAMING INSPECTOR Primary Care Provider Encounter Details Date Type Department Care Team Description 02/11/2006 Results Only [facility] - Jennifer Meade, BEAMING INSPECTOR conversion [facility] [address] [place] [address] [place] [address] [phone] Social History Tobacco Use Types Packs/Day Years Used Date Never Assessed Sex Assigned at Date Recorded Not on file documented as of this encounter Plan of Treatment Not on filedocumented as of this encounter Procedures Procedure Name Priority Date/Time Associated Diagnosis Comme nts CYTOPATHOLOGY Routine 02/11/2006 0:00 EDT Results for this procedure are i n the results section . documented in this encounter Results CYTOPATHOLOGY (02/11/2006 0:00 EDT) Pathology Report: CYTOPATHOLOGY REPORT [facility] Reports generated via electronic interface contain davis ginal data; however they are lacking the format of the original re port. Caution should be taken when reading/interpreting unfo rmatted reports. Name: ? GALE KONG ? Accession #: ? [id number] : ? 1945 (Age: 60) ??F ?Collect Date: ? 01/18 Location: ? [facility] ? Receive Date : ? 02/13/2006 Provider: ?JENNIFER LEDESMA BEAMING INSPECTOR Copy to: ? Specimen/Source: ? ThinPrep Pap Test, Cervix/Endocervix, processed on [employer] [place] ThinPrep Imaging System, with manual evaluation Last Menstrual Period: ? + yr ago Previous Gynecologic Pathology: ? Yes: 10/15/05 Sq cell abnormality. ??Atypical squamous cell undetermine significance ? SPECIMEN ADEQUACY ? Satisfactory for Evaluation - transformation zone component present GENERAL CATEGORIZATION ? Negative for Intraepithelial Lesion or Malignan cy INTERPRETATION ? Reactive cellular carrol nges associated with inflammation present (includes repair). Fungal organisms present morphologically consistent wi th Jolene species. ? Document reviewed and electronically signed by: ? Sophia Beltran MD ? Report Date: ??02/19/2006 11:37 End of Report Specimen Performing Organization Address City/State/ZIP Code Phon e Number [facility] [address] [place] [address] SERVICES [facility] [address] [place] [address] documented in this encounter Visit Diagnoses Not on filedocumented in this encounter Care Teams Statistics Intern Relationship Specialty Start Date End Date Jennifer Ledesma NP PCP - General 09/10/09 03/29/16 [facility] [address] [place], [place] [id number] documented as of this encounter
--- OUTSIDE RECORDS SUMMARY | 2022-07-08 09:31 | XMS_ITS | Encounter Summary ---
:1945 Author Organization [facility] Address [address] [facility] [place] [address] Care Team Providers Name Role Phone Terri Bowser MD Primary Care Provider Reason for Visit Reason Comments Macular Degeneration Encounter Details Date Type Department Care Team Description 02/26/2022 Office Visit Ophthalmology at [facility] Johnnie Weber Exudative age-related [facility] MD Josiah macular degeneration Drive [facility] [place] [address] inactive scar [phone] [place], [place] [address] Social History Tobacco Use Types Packs/Day Years Used Date Former Smoker Cigarettes 2 10 Quit: 07/19/19 77 Smokeless Tobacco: Never Used Alcohol Use Standard Drinks/Week Comments No 0 (1 standard drink = 0.6 oz pure alcoho l) Sex Assigned at Date Recorded Not on file documented as of this encounter Progress Notes Josiah Weber MD - 02/26/2022 12:45 PM EDT ASSESSMENT/PLAN: 1. 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 Patient was seen by the [place] [facility]. The patient is already on AREDS2 vitamins, and agreed to continue the off-label use of them. 2. Ptosis and dermatochalasis OU Even though there is a definite involutional component will send Acetylocholine receptor binding Ab given that the symptoms fluctuate per the patient Dr Perry annually Refer to Dr. Khoury, plastics Follow up 2-3 years for DFE, OCT OU documented in this encounter Miscellaneous Notes Addendum Note - Casa Toro - 02/26/2022 12:45 PM EDT Addended by: CASA TORO on: 02/26/2022 03:16 PM Modules accepted: Orders documented in this encounter Plan of Treatment Upcoming Encounters Date Type Specialty Care Team Description 02/26/2023 Office Visit Rheumatology Toño Rodriguez PA [facility] RHEUMATOLOGY [place], [place] [address] (Wo rk) documented as of this encounter Goals Goal Patient Goal Associated Recent Patient-Stated? Author Type Problems Progress DH Home Medication Patient No O'Rour naomy, Compliance and Facing Rachael Resendiz, Understanding Action Plan [facility] Note: Formatting of this note might be d ifferent from the original. Patient's goal is to decrease pain by 50 % over the next 6 months (current pain 7 out of 10, would like to get down to 3) documented as of this encounter Procedures Procedure Name Priority Date/Time Associated Diagnosis Comme nts HC PC ACETYLCHOLINE Routine 02/26/2022 3:23 Exudative Resu lts for this RECEPTOR ANTIBODY PM EDT age-related macular pro cedure are in degeneration of both the res ults eyes with inactive section. scar OCT RETINA - OU - BOTH Routine 02/26/2022 2:38 Exudative Re sults for this EYES PM EDT age-related macular procedur e are in degeneration of both the res ults eyes with inactive section. scar documented in this encounter Results Acetylcholine Receptor Ab Binding (02/26/2022 3:23 PM EDT) P athologist Signature ACHr Binding 0.00 <=0.02 ALEIDA TERRELL Ab nmol/L [facility] Comment: ADDITIONAL INFORMATIO N This test was developed and its performa nce characteristics determined by [facility] in a manner co nsistent with CLIA requirements. This test has not been shantel ared or approved by the U.S. Food and Drug Administration. Test Performed by: [facility] [place] [address] Medical Center Representative: Charles Garay M.D. Ph. D.; CLIA# [id number] Specimen Anatomical Collection Method Collection Time Receive d Time (Source) Location / / Volume Laterality Blood 02/26/2022 3:23 PM 9:29 EDT AM EDT Resulting Agency Comment Spec In Lab Josiah Weber MD CHEMISTRY ORDERABLES Performing Organization Address City/State/ZIP Code Phon e Number [facility] [place] [address] OCT Retina - OU - Both Eyes (02/26/2022 2:38 PM EDT) Anatomical Region Laterality Modality Other Specimen (Source) Anatomical Location Collection Method / Collectio n Time Received Time / Laterality Volume Narrative 02/26/2022 2:38 PM EDT Right Eye Quality was good. Scan locations include d subfoveal. Progression has no prior data. Findings include subretinal scarring, abnormal foveal contour. Left Eye Quality was good. Scan locations include d subfoveal. Progression has no prior data. Findings include subretinal scarring, abnormal foveal contour. Notes OD: flat retina. Old scar. ?OS: flat retina, no fluid. Josiah Weber MD OPHTHALMOLOGY SERVICES [facility] documented in this encounter Visit Diagnoses Diagnosis Exudative age-related macular degenerati on of both eyes with inactive scar documented in this encounter Care Teams Covered Button Maker Relationship Specialty Start Date End Date Terri Bowser MD PCP - General Family Medicine 07/02/17 [address] [place] [address] documented as of this encounter
--- OUTSIDE RECORDS SUMMARY | 2022-07-08 09:31 | XMS_ITS | Encounter Summary ---
:1945 Author Organization [facility] [place] [address] Care Team Providers Name Role Phone Terri Bowser MD Primary Care Provider Encounter Details Date Type Department Care Team Description 06/26/2022 Telephone Urology at [facility] Reinaldo Norman MD [facility] [place] [address] UROLOGY DEPT [phone] [place], [place] [address] (Wo rk) Social History Tobacco Use Types Packs/Day Years Used Date Former Smoker Cigarettes 2 10 Quit: 07/19/19 77 Smokeless Tobacco: Never Used Alcohol Use Standard Drinks/Week Comments No 0 (1 standard drink = 0.6 oz pure alcoho l) Sex Assigned at Date Recorded Not on file documented as of this encounter Miscellaneous Notes Telephone Encounter - Lizabeth Carlson - 06/26/2022 10:14 AM EDT Patients PCP Dr. Goncalves calling again, says we can disregard the message about ordering an MRI to be done at [facility] as the patient has a cardiac stent which does not allow the patient to have MRIs. documented in this encounter Plan of Treatment Upcoming Encounters Date Type Specialty Care Team Description 02/26/2023 Office Visit Rheumatology Toño Rodriguez PA [facility] RHEUMATOLOGY [place], [place] [address] (Wo rk) documented as of this encounter Goals Goal Patient Goal Associated Recent Patient-Stated? Author Type Problems Progress DH Home Medication Patient No O'Rour ke, Compliance and Facing Rachael Resendiz, Understanding Action Plan [facility] Note: Formatting of this note might be d ifferent from the original. Patient's goal is to decrease pain by 50 % over the next 6 months (current pain 7 out of 10, would like to get down to 3) documented as of this encounter Visit Diagnoses Not on filedocumented in this encounter Care Teams Yarn Packer Relationship Specialty Start Date End Date Terri Bowser MD PCP - General Family Medicine 07/02/17 [address] [place] [address] documented as of this encounter
--- OUTSIDE RECORDS SUMMARY | 2022-07-08 09:31 | XMS_ITS | Encounter Summary ---
:1945 Author Organization [facility] [place] [address] Care Team Providers Name Role Phone Terri Bowser MD Primary Care Provider Encounter Details Date Type Department Care Team Description 05/08/2022 Abstract Urology at [facility] Valerie Martinez, [place] [address] Social History Tobacco Use Types Packs/Day [...] 02/26/2023 Office Visit Rheumatology Toño Rodriguez PA [facility] [address] [place], [place] [address] (Wo rk) documented as of this encounter Goals Goal Patient Goal Associated Recent Patient-Stated? Author Type Problems Progress Home Medication Patient No O'Rour ke, Compliance and Facing Rachael Resendiz, Understanding Action Plan [facility] Note: Formatting of this note might be d ifferent from the original. Patient's goal is to decrease pain by 50 % over the next 6 months (current pain 7 out of 10, would like to get down to 3) documented as of this encounter Visit Diagnoses Not on filedocumented in this encounter Care Teams Bar Gauger And Lubricator Tender Relationship Specialty Start Date End Date Terri Bowser MD PCP - General Family Medicine 07/02/17 [address] [place] [address] documented as of this encounter
--- OUTSIDE RECORDS SUMMARY | 2022-07-08 09:31 | XMS_ITS | Encounter Summary ---
:1945 Author Organization [facility] Address [address] [place] [address] Care Team Providers Name Role Phone BroomeJennifer mckeon KETURAH Primary Care Provider Encounter Details Date Type Department Care Team Description 02/24/2012 Results Only [facility] Mk Vaughn, LEARNING AND DEVELOPMENT ADMINISTRATOR Laboratory Services - [address] [place] [address] [address] [place] [address] [phone] Social History Tobacco Use Types Packs/Day Years Used Date Never Assessed Sex Assigned at Date Recorded Not on file documented as of this encounter Plan of Treatment Not on filedocumented as of this encounter Procedures Procedure Name Priority Date/Time Associated Diagnosis Comme nts PAP TEST- RESULT Routine 02/24/2012 0:00 EDT Resu lts for this ONLY procedure are i n the results section. documented in this encounter Results PAP TEST- RESULT ONLY (02/24/2012 0:00 EDT) Pathology Report: CYTOPATHOLOGY REPORT [facility] Reports generated via electronic interface contain davis ginal data; however they are lacking the format of the original re port. Caution should be taken when reading/interpreting unfo rmatted reports. Name: ? GALE KONG ? Accession #: ? [id number] : ? 1945 (Age: 66) ??F ?Collect Date: ? 05/0 05/2012 Location: ? [facility] ? Receive Date : ? 02/25/2012 Provider: ?YOCASTA VAUGHN LEARNING AND DEVELOPMENT ADMINISTRATOR Copy to: ?MACARENA VAUGHAN MD ? Specimen/Source: ? Pap Test, Cervix/Endocervix, ThinPrep Imaging System with manual evaluation Last Menstrual Period: ? 2001 Other: ? Additional clinical information: 02/08/10 pap neg/neg H PV ? SPECIMEN ADEQUACY ? Satisfactory for Evaluation - transformation zone component present GENERAL CATEGORIZATION ? Negative for Intraepithelial Lesion or Malignan cy INTERPRETATION ? Reactive cellular carrol nges associated with inflammation present (includes repair). ? Document reviewed and electronically signed by: ? JULIA EVANS MD ? Report Date: ??03/03/2012 13:26 End of Report Specimen Performing Organization Address City/State/ZIP Code Phon e Number [facility] [address] [place] [address] SERVICES [facility] [address] [place] [address] documented in this encounter Visit Diagnoses Not on filedocumented in this encounter Care Teams Family Law Mediator Relationship Specialty Start Date End Date Jennifer Silva NP PCP - General 09/10/09 03/29/16 [place] [address] [place], [place] [address] documented as of this encounter
--- OUTSIDE RECORDS SUMMARY | 2022-07-08 09:31 | XMS_ITS | Encounter Summary ---
:1945 Author Organization [facility] [address] Care Team Providers Name Role Phone Terri Bowser MD Primary Care Provider Reason for Visit Reason Onset Date Comments Triage 03/15/2021 Encounter Details Date Type Department Care Team Description 03/15/2021 Telephone Rheumatology at [facility] [place] [address] Social History Tobacco Use Types Packs/Day Years Used Date Former Smoker Cigarettes 2 10 Quit: 07/19/19 79 Smokeless Tobacco: Never Used Alcohol Use Standard Drinks/Week Comments No 0 (1 standard drink = 0.6 oz pure alcoho l) Sex Assigned at Date Recorded Not on file documented as of this encounter Miscellaneous Notes Telephone Encounter - Noe Manzanares RN - 03/15/2021 2:52 PM EDT Called patient, unavailable. Left vm with call back number. Sent Go Dish message as well. Patient scheduled for appt on 03/26. Telephone Encounter - Noe Manzanares RN - 03/15/2021 2:50 PM EDT Images from the original note were not included. Ning Roldan APRN Gavalakis, Rory A RN Caller: Unspecified (Today, 10:57 AM) Okay she can stop and we will schedule her for f/u, thank you Telephone Encounter - Noe Manzanares RN - 03/15/2021 12:08 PM EDT Caller: Patient Relationship: Self Clarified Two Patient Identifiers: [x] Reason For Call: Triage Assessment/Symptom Review (onset, location, duration, what makes it better or worse, pertinent positives and negatives): 3 weeks ago, sob. Started 20 mg of Arava 3 weeks ago, previously on 10 mg. Notes similar sob with MTX. Review of Systems Related to Reason for Call: System POS NEG Not Applicable Head (ENT /Neuro) [] [x] [] Cardiac [] [x] [] Respiratory [x] [] [] GI [] [x] [] [] [x] [] Musculoskeletal [] [x] [] Integumentary [] [x] [] Mental Health [] [x] [] Select Specific Decision Support Tool Used: Telephone Triage Protocols for Nurses, 6th Edition, Aleena Luna2020 Name of Guideline/Protocol Used: --- Disposition/Plan of Care: update provider Patient/Caregiver verbalizes understanding of plan of care: Yes Patient/Caregiver agrees with plan: Yes Advised patient/caregiver to: call office back for any new or worsening symptoms Patient/Caregiver demonstrates understanding via teach back: Yes Patient calls d/t sob. Saw PCP, tested for covid, imaging, everything came back negative. No fever or chills. On Arava 20 mg, started 10 mg. At 20 mg for at least 3 weeks. Sob started 3 weeks ago. States same thing happened with mtx. Would like to stop Arava. documented in this encounter Plan of Treatment Upcoming Encounters Date Type Specialty Care Team Description 02/26/2023 Office Visit Rheumatology Toño Rodriguez PA [facility] [place]HEUMATOLOGY [place], [place] [address] (Wo rk) documented as of this encounter Goals Goal Patient Goal Associated Recent Patient-Stated? Author Type Problems Progress DH Home Medication Patient No O'Rour ke, Compliance and Facing Rachael Resendiz, Understanding Action Plan [facility] Note: Formatting of this note might be d ifferent from the original. Patient's goal is to decrease pain by 50 % over the next 6 months (current pain 7 out of 10, would like to get down to 3) documented as of this encounter Visit Diagnoses Not on filedocumented in this encounter Care Teams Mold Technician Relationship Specialty Start Date End Date Terri Bowser MD PCP - General Family Medicine 07/02/17 [address] [place] [address] documented as of this encounter
--- OUTSIDE RECORDS SUMMARY | 2022-07-08 09:31 | XMS_ITS | Encounter Summary ---
:1945 Author Organization [facility] Address [address] [place] [address] Care Team Providers Name Role Phone RicardoJenniehumphrey Cole NP Primary Care Provider Encounter Details Date Type Department Care Team Description 02/08/2010 Results Only [facility] Mk Vaughn, ELECTROCARDIOGRAM TECHNICIAN Laboratory Services - [address] [facility] [address] [place] [address] [address] [place] [address] [phone] Social History Tobacco Use Types Packs/Day Years Used Date Never Assessed Sex Assigned at Date Recorded Not on file documented as of this encounter Plan of Treatment Not on filedocumented as of this encounter Procedures Procedure Name Priority Date/Time Associated Comments Diagnosis HPV DETECTION, HIGH Routine 02/08/2010 23:01 Resu lts for this RISK TYPES EDT procedure are i n the results section. CYTOPATHOLOGY Routine 02/08/2010 0:00 Results for this EDT procedure are i n the results section. documented in this encounter Results HUMAN PAPILLOMA VIRUS DNA TEST (02/08/2010 23:01 EDT) Specimen Description Cervix, ThinPrep [facility] vial Result Negative for HPV [facility] types 16, 18, 31, 33, 35, 39, 45, 51, 52, 56, 58, 59, and 68. Report Status Final [facility] 02/21/2010 Specimen Performing Organization Address City/State/ZIP Code Phon e Number [facility] [address] [place] [address] SERVICES [facility] [address] [address] CYTOPATHOLOGY (02/08/2010 0:00 EDT) Pathology Report: CYTOPATHOLOGY REPORT ? [facility] Reports generated via [employer] interface contain original data; ? however they are lacking the format of the original report. ? Caution should be taken when reading/interpreting unformatted reports. ? Name: ? GALE KONG ? Accession #: ? [id number] ? : ? 1945 (Age: 64) ??F ?Collect Date: ? 02/08/2010 ? Location: ? [facility] ? Receive Date: ? 02/11/2010 ? Provider: ?YOCASTA HAYG OOD ELECTROCARDIOGRAM TECHNICIAN ? Copy to: ? Specimen/Source: ? Pap Test, Cervix/Endocervix, ThinPrep Imaging System ? with manual evaluation ? Last Menstrual Period: ? 09/01/01 ? Other: ? HPVDX - HPV testing requeste d regardless of diagnosis on current ThinPrep Pap ?? test. ? SPECIMEN ADEQUACY ? Satisfactory for Eval uation ? - transformation zone compon ent present ? GENERAL CATEGORIZATION ? Negative for Intraepi thelial Lesion or Malignancy ? Document reviewed and electr onically signed by: ? Yasemin Robg, CT(ASCP) ? Report Date: ??05/04/ 2010 13:36 ? End of Report ? Specimen Performing Organization Address City/[facility]/ZIP Code Phon e Number [facility] [address] [place] [address] SERVICES [facility] [address] [place] [address] documented in this encounter Visit Diagnoses Not on filedocumented in this encounter Care Teams Health And Physical Education Professor Relationship Specialty Start Date End Date Jennifer Silav NP PCP - General 09/10/09 03/29/16 [place] [address] [place], [place] [address] documented as of this encounter
--- OUTSIDE RECORDS SUMMARY | 2022-07-08 09:31 | XMS_ITS | Encounter Summary ---
:1945 Author Organization [facility] [place] [address] Care Team Providers Name Role Phone Terri Bowser MD Primary Care Provider Reason for Referral Diagnostic Test (Routine) - Pending Review Specialty Diagnoses / Procedures Referred By Contact Refer red To Contact Radiology Diagnoses Renal cyst, acquired Reinaldo Norman MD Procedures CT Abdomen wwo Contrast [facility] [place] [address] Referral ID Status Reason Start Expiration Visits Visits Date Date Requested Authorized [id number] Pending Specialty 05/26/2022 11/23/2023 1 1 Review Service Requested Encounter Details Date Type Department Care Team Description 05/23/2022 Orders Only Urology at [facility] Reinaldo Norman Renal cyst, acquired [facility] [place] [address] UROLOGY DEPT [place], [place] [address] (Wo rk) Social History Tobacco [...] Visit Rheumatology Toño Rodriguez PA [facility] [place]HEUMATOLOGY [place], [place] [address] (Wo rk) Scheduled Orders Name Type Priority Associated Diagnoses Order S chedule CT Abdomen wwo Contrast Imaging Routine Renal cyst, acqui red Expected: 05/26/2022 (Approximate), Expires: 05/23/2023 documented as of this encounter Goals Goal Patient Goal Associated Recent Patient-Stated? Author Type Problems Progress DH Home Medication Patient No O'Rour ke, Compliance and Facing Rachael Resendiz, Understanding Action Plan [facility] Note: Formatting of this note might be d ifferent from the original. Patient's goal is to decrease pain by 50 % over the next 6 months (current pain 7 out of 10, would like to get down to 3) documented as of this encounter Visit Diagnoses Diagnosis Renal cyst, acquired Acquired cyst of kidney documented in this encounter Care Teams Dredge Pipeman Relationship Specialty Start Date End Date Terri Bowser MD PCP - General Family Medicine 07/02/17 [address] [place] [address] documented as of this encounter
--- OUTSIDE RECORDS SUMMARY | 2022-07-08 09:31 | XMS_ITS | Encounter Summary ---
:1945 Author Organization [facility] [place] [address] Care Team Providers Name Role Phone Terri Bowser MD Primary Care Provider Encounter Details Date Type Department Care Team Description 03/26/2021 TH [place] [facility] Ning Roldan, Psoriatic arthritis; (TeleHealth) [facility] [place] [address] Center [phone] [place] [address] Social History Tobacco Use Types Packs/Day Years Used Date Former Smoker Cigarettes 2 10 Quit: 07/19/19 79 Smokeless Tobacco: Never Used Alcohol Use Standard Drinks/Week Comments No 0 (1 standard drink = 0.6 oz pure alcoho l) Sex Assigned at Date Recorded Not on file documented as of this encounter Patient Instructions Patient InstructionsNing Roldan APRN - 03/26/2021 2:00 PM EDT Telephone visit with John documented in this encounter Progress Notes Ning Roldan APRN - 03/26/2021 2:00 PM EDT Francisca Kong is a 76 y.o. female seen for ongoing evaluation and management of psoriatic arthritis. INTERVAL HISTORY: Off Arava d/t worsening dyspnea though also had just received COVID vaccine. Was having joint benefit from the lef. Her joints are okay right now, seemed to have maintained somebenefit She is back at cardiac rehab She believes she is long hauling from moderna vaccine. Daughter long hauling too She would be willing to go back to Humira in the future Hesitant to increase pred d/t diabetes Past OV 01/24/21 She couldn't get rides here and can't drive with vision. She was seeing rheum in [place] but Retired She is on 3mg of prednisone. She has PMR which she reports her PCP is managing. PCP wants to keep her on 3mg of prednisone for the indefinite future. She is dying. Ankles, wrists, elbows, knees ache.Pso flaring she reports. FMS as acting up as well. Bone on bone on the knees to knows reponded to Enbrel or Humira. She reports would get infections orhave heart issues on these biologics Trigger finger on right 4th and thumb on the left All of the upper half is stiff in the morning and feels better as move. Takes until noon to loosen up, tylenol and oxy help Her fingers have looked swollen to her. Her feet have broadened. Her knees have felt red and hot at times. The red elbow occ has been red and hot. No active pso lesions right now. No plaquenil because of eye. She thinks she had ssz and didn't tolerate. Hives with sulfa antibx She can't take voltaren due to kidneys she reports No humira, no enbrel, no mtx, no lef, no ssz, no hcq Sepsis jul 2019 No infections this year, but does normally get frequent resp infections She did not restart humira after the sepsis. She was hesitant to restart. Has had several blood clots. Enlarged liver and gallbladder She does get constipation with oxy, but does go once or twice a day Past OV Salma Heredia 05/06/19 Last seen 2016. Followed in [facility]. Reports had been followed by . Prior treatments: MTX (trouble breathing), leflunomide (diarrhea); enbrel (unspecified). Reports all my friends from [facility] who are seen at the [facility] are starting Humira and prednisone. Has been on a slow prednisone taper after treatment for pneumonia. Current dose is 3 mg. I felt great on 40 mg. I could walk anywhere. Reports ongoing bilateral hand and wrist pain and stiffness, thinks some sweling. Shoulder (L) stiff and sore. Hard to move. Ongoing low back pain and stiffness worsening after fall. Seen in OSH - planned steroid injection, but [?] study with contrast dye was needed, so unable to complete. Acetaminophen 1000 mg po BID, with modest benefit for hand and wrist pain. At last office visit, discussed Cymbalta -> indication OA, FMS -> low dose initially -> 20 mg -> will discuss plan w/PCP prior to initiation. Ongoing calcium and vitamin D dietary intake and supplementation. Continues cardiac rehab -> riding bike, doing upper extremity rehab. (~) psoriasis rash at elbows,(-) oral ulcers, dry mouth, painful or difficult swallowing. Ongoing calcium through diet, vitamin D supplementation per PCP. Periodic eye exam -> local site q 6 months, annual. (-) recurrent illness or infection. (-) other changes in medical, surgical, or social history. Is up to date on routine health maintenance and screening exams. ASSESSMENT : Psoriatic arthritis, responsive to steroid; chronic steroid use; Fibromyalgia PLAN/RECOMMENDATIONS: Off DMARD after we trialed Arava but experienced worsening SOB, similar to mtx rxn, so dc'd. Joints did have benefit. She is doing okay right now. I will send her higher dose steroid to see if this helps the SOB. She can then resume 3mg daily. Per chart review, did not tolerate mtx, did not tolerate ssz and with sulfa antibx allergy, no hcq with eye disease. Sepsis on Humira, though had immediate joint response to Humira. Ongoing calcium and vitamin D dietary intake and supplementation. Recently had DEXA with PCP, awaiting results. She will follow-up with John in May via phone (poor vision, can't use video) but contact us sooner if any questions or concerns. Patient verbally consents to this telephone visit and understands that this visit may be billed, similar to a clinic office visit. I provided care to the patient today via telephone call. The total time associated with this visit was 20 minutes. documented in this encounter Plan of Treatment Upcoming Encounters Date Type Specialty Care Team Description 02/26/2023 Office Visit Rheumatology Toño Rodriguez PA [facility] [place], [place] [address] (Wo rk) documented as of this encounter Goals Goal Patient Goal Associated Recent Patient-Stated? Author Type Problems Progress DH Home Medication Patient No O'Errol moralez, Compliance and Facing Rachael Resendiz, Understanding Action Plan [facility] Note: Formatting of this note might be d ifferent from the original. Patient's goal is to decrease pain by 50 % over the next 6 months (current pain 7 out of 10, would like to get down to 3) documented as of this encounter Visit Diagnoses Diagnosis Psoriatic arthritis Psoriatic arthropathy Fibromyalgia Mylagia and myositis, unspecified documented in this encounter Care Teams Film Examiner Relationship Specialty Start Date End Date Terri Bowser MD PCP - General Family Medicine 07/02/17 [address] [place] [address] documented as of this encounter
--- OUTSIDE RECORDS SUMMARY | 2022-07-08 09:31 | XMS_ITS | Encounter Summary ---
:1945 Author Organization [facility] [place] [address] Care Team Providers Name Role Phone Terri Bowser MD Primary Care Provider Encounter Details Date Type Department Care Team Description 06/19/2021 Telephone Urology at [facility] Evens Ortiz Jr., MD [facility] [place] [address] UROLOGY DEPT. [phone] [place], [place] [address] (Wo rk) Social History Tobacco Use Types Packs/Day Years Used Date Former Smoker Cigarettes 2 10 Quit: 07/19/19 79 Smokeless Tobacco: Never Used Alcohol Use Standard Drinks/Week Comments No 0 (1 standard drink = 0.6 oz pure alcoho l) Sex Assigned at Date Recorded Not on file documented as of this encounter Miscellaneous Notes Telephone Encounter - Evens Ortiz Jr., MD - 06/19/2021 5:39 PM EDT I called and reviewed medications for urinary alkalinization. We discussed that after her last visitwith Dr. Pink it has been decided used single agent potassium citrate and to stop the sodium bicarbonate. She had been unclear on that and had continued the sodium bicarbonate as well. We discussedthat the endpoint is simply the urine pH and if she is able to maintain an appropriately alkalinize urine with a pH of 6-6.5 or greater that this should significantly help control uric acid stone formation. I offered to repeat a 24-hour urine study on her current potassium citrate regimen, but she notes it is difficult to collect a complete 24-hour urine study due to incontinence. Therefore, instead she will continue to chart interval urine pH is with home pH monitoring strips. She will record these and bring them in for her planned follow-up early in 2021. I asked her to contact us with any additional questions or problems documented in this encounter Plan of Treatment Upcoming Encounters Date Type Specialty Care Team Description 02/26/2023 Office Visit Rheumatology oTño Rodriguez PA [facility] RHEUMATOLOGY [place], [place] [address] (Wo rk) documented as of this encounter Goals Goal Patient Goal Associated Recent Patient-Stated? Author Type Problems Progress DH Home Medication Patient No O'Rour ke, Compliance and Facing Rachael Resendiz, Understanding Action Plan [facility] Note: Formatting of this note might be d ifferent from the original. Patient's goal is to decrease pain by 50 % over the next 6 months (current pain 7 out of 10, would like to get down to 3) documented as of this encounter Visit Diagnoses Not on filedocumented in this encounter Care Teams [place] Relationship Specialty Start Date End Date Terri Bowser MD PCP - General Family Medicine 07/02/17 [address] [place] [address] documented as of this encounter
--- OUTSIDE RECORDS SUMMARY | 2022-07-08 09:31 | XMS_ITS | Encounter Summary ---
:1945 Author Organization [facility] [place] [address] Care Team Providers Name Role Phone Terri Bowser MD Primary Care Provider Encounter Details Date Type Department Care Team Description 06/26/2022 Telephone Urology at [facility] Reinaldo Norman MD [facility] [place] [address] UROLOGY DEPT [phone] [place], [place] [address] (Wo rk) Social History Tobacco Use Types Packs/Day Years Used Date Former Smoker Cigarettes 2 10 Quit: 07/19/19 79 Smokeless Tobacco: Never Used Alcohol Use Standard Drinks/Week Comments No 0 (1 standard drink = 0.6 oz pure alcoho l) Sex Assigned at Date Recorded Not on file documented as of this encounter Miscellaneous Notes Telephone Encounter - Alcides Santillan - 06/26/2022 9:51 AM EDT Patients PCP calling, patient has an allergy to the contrast of the CT and they are looking to see if patient can do an MRI w/ Contrast instead. TO DO AT [facility]. documented in this encounter Plan of Treatment Upcoming Encounters Date Type Specialty Care Team Description 02/26/2023 Office Visit Rheumatology Toño Rodriguez PA [facility] [place], [place] [address] (Wo rk) documented as of this encounter Goals Goal Patient Goal Associated Recent Patient-Stated? Author Type Problems Progress DH Home Medication Patient No O'Rour ke, Compliance and Facing Rachael Resendiz, Understanding Action Plan [facility] Note: Formatting of this note might be d ifferent from the original. Patient's goal is to decrease pain by 50 % over the next 6 months (current pain 7 out of 10, would like to get down to 3) documented as of this encounter Visit Diagnoses Not on filedocumented in this encounter Care Teams Operator Receptionist Relationship Specialty Start Date End Date Terri Bowser MD PCP - General Family Medicine 07/02/17 [address] [place] [address] documented as of this encounter
--- OUTSIDE RECORDS SUMMARY | 2022-07-08 09:31 | XMS_ITS | Encounter Summary ---
:1945 Author Organization [facility] [place] [address] Care Team Providers Name Role Phone Terri Bowser MD Primary Care Provider Encounter Details Date Type Department Care Team Description 06/28/2021 Telephone Rheumatology at [facility] [place] [address] Social History Tobacco Use Types Packs/Day Years Used Date Former Smoker Cigarettes 2 10 Quit: 07/19/19 77 Smokeless Tobacco: Never Used Alcohol Use Standard Drinks/Week Comments No 0 (1 standard drink = 0.6 oz pure alcoho l) Sex Assigned at Date Recorded Not on file documented as of this encounter Miscellaneous Notes Telephone Encounter - Dianna Dubois - 06/28/2021 3:53 PM EDT I called patient to schedule 6 mo follow up. Patient asked if she could plan it to be in clinic. Latonya scheduled 01/23/22 @ 10:30. documented in this encounter Plan of Treatment Upcoming Encounters Date Type Specialty Care Team Description 02/26/2023 Office Visit Rheumatology Toño Rodriguez PA [facility] [place], [place] [address] (Wo rk) documented as of this encounter Goals Goal Patient Goal Associated Recent Patient-Stated? Author Type Problems Progress DH Home Medication Patient No O'Dericr naomy, Compliance and Facing Rachael Resendiz, Understanding Action Plan [facility] Note: Formatting of this note might be d ifferent from the original. Patient's goal is to decrease pain by 50 % over the next 6 months (current pain 7 out of 10, would like to get down to 3) documented as of this encounter Visit Diagnoses Not on filedocumented in this encounter Care Teams Vp Integrity Relationship Specialty Start Date End Date Terri Bowser MD PCP - General Family Medicine 07/02/17 [address] [place] [address] documented as of this encounter
--- OUTSIDE RECORDS SUMMARY | 2022-07-08 09:31 | XMS_ITS | Encounter Summary ---
:[address] [facility] Address [address] [place] [address] Care Team Providers Name Role Phone Jennifer Silva KETURAH Primary Care Provider Encounter Details Date Type Department Care Team Description 03/07/2014 Results Only [facility] M[facility] Vaughn, FAMILY LAW MEDIATOR Laboratory Services - [address] [place] [address] [address] [place] [address] [phone] Social History Tobacco Use Types Packs/Day Years Used Date Never Assessed Sex Assigned at Date Recorded Not on file documented as of this encounter Plan of Treatment Not on filedocumented as of this encounter Procedures Procedure Name Priority Date/Time Associated Diagnosis Comme nts PAP TEST- RESULT Routine 03/07/2014 0:00 EDT Resu lts for this ONLY procedure are i n the results section. documented in this encounter Results PAP TEST- RESULT ONLY (03/07/2014 0:00 EDT) Pathology Report: CYTOPATHOLOGY REPORT [facility] Reports generated via electronic interface contain davis ginal data; however they are lacking the format of the original re port. Caution should be taken when reading/interpreting unfo rmatted reports. Name: ? GALE KONG ? Accession #: ? [id number] ? : ? 1945 (Age: 68) ??F ?Collect Da te: ? 03/07/2014 ? Location: ? [facility] ? Receive Date: ? 014 ? Provider: YOCASTA VAUGHN FAMILY LAW MEDIATOR Copy to: MACARENA VAUGHAN MD ? Final Report SPECIMEN ADEQUACY ? Satisfactory for Evaluation - transformation zone component present GENERAL CATEGORIZATION ? Negative for Intraepithelial Lesion or Malignan cy ?? Last Menstrual Period: Age 58 Specimen/Source: ??Pap Test, Cervix/Endocervix, ThinPr ep Imaging System with manual evaluation Document reviewed and electronically signed by: ? LARA Castellanos(ASCP) ? Report ??Date: 03/17/2014 11:01 HPV with Pap Test ? Date Ordered: ? 03/17/2014 ? Status: ?? Signed Out ?Date Complete: ? 03/21/2014 ? By: ??S ystem Interface ? Date Reported: ? 03/21/2014 ? Interpretation RESULT: Negative for HPV. No E6 or E7 mRNA is detected from HPV types 16,18,31,3 3,35, 39,45,51,52,56,58,59,66, and 68 by food service steward media antonio amplification. Comments Document reviewed and electronically signed by: ? System Interface ? Report date: 03/21/2014 By the signature above, the attending physician certif ies that he/she has personally conducted a gross and/or microscopic examin ation of the described specimens and rendered or confirmed the above diagnosi s. End of Report Specimen Performing Organization Address City/State/ZIP Code Phon e Number [facility] [address] [place] [address] SERVICES [facility] [address] [place] [address] documented in this encounter Visit Diagnoses Not on filedocumented in this encounter Care Teams Patrol Officer Relationship Specialty Start Date End Date Jennifer Silva NP PCP - General 09/10/09 03/29/16 [facility] [address] [place], [place] [address] documented as of this encounter
--- OUTSIDE RECORDS SUMMARY | 2022-07-08 09:31 | XMS_ITS | Encounter Summary ---
:1945 Author Organization [facility] [place] [address] Care Team Providers Name Role Phone Terri Bowser MD Primary Care Provider Encounter Details Date Type Department Care Team Description 05/19/2022 Office Visit Urology at [facility] Reinaldo Norman Renal cyst, acquired [facility] [place] [address] UROLOGY DEPT [place], [place] [address] Social History Tobacco Use Types Packs/Day Years [...] Pulse 73 05/19/2022 11:02 AM EDT Temperature - - Respiratory Rate - - Oxygen Saturation 98% 05/19/2022 11:02 AM EDT Inhaled Oxygen Concentration - - Weight - - Height - - Body Mass Index - - documented in this encounter Progress Notes Reinaldo Norman MD - 05/19/2022 10:40 AM EDT UROLOGY NOTE ?? Mrs Kong is here as a scheduled follow up??for right complex renal cysts. She has??done well sincelast visit and??denies any??flank pain or hematuria. She has not passed any kidney stones recently and is being followed by Dr Ortiz for this. She underwent a renal u/s today and is here to review the results.? Past Medical History: Diagnosis Date ??? Amblyopia ? OD ??? Anxiety ? 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 Asthma ? Calmed down now; was pretty bad. Fall and Summer are worst. ??? Cardiac disease ? CAD ??? Carpal tunnel syndrome ? Cataract ? Chronic pain ? Back and generalized. ??? COPD (chronic obstructive pulmonary disease) ? CPAP (continuous positive airway pressure) dependence ? Delayed emergence from anesthesia ? Diabetes ? Type 2; A1c 7.6 ??? Diabetes mellitus 2006 ??? Difficult intubation ? Was told they had a problem intubating her. Unsure of reason but she has esophageal diverticulum. ??? Fatigue ? Fibromyalgia ? Gastroesophageal reflux ? Probiotics for GERD; was discontinued from Nexium due to kidney issues. ??? 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 ??? GERD (gastroesophageal reflux disease) ? Heart valve disease ? High blood pressure ? Well controlled on medication. ??? Hyperlipidemia ? Hypertension ? Irregular heart beat ? SVT; was converted weekly x 10 years ??? Kidney failure ? [facility] admission for L kidney failure; stent placed at 07/21/2019 ??? Mental health problem ? ADHD; no meds for this. ??? Motion sickness ? Myocardial infarction ? Stent placed LAD ??? Nerve entrapment 02/09/2013 ??? Neuromuscular disease ? Fibromyalgia ??? Obstructive sleep apnea ? BiPap ??? Osteoporosis ? Psoriatic arthritis ? PTSD (post-traumatic stress disorder) ? Senile macular degeneration ? OU ??? Ulcer ? Remote Hx ? Past Surgical History: Procedure Laterality Date ??? CARDIAC SURGERY ? CATARACT REMOVAL ? OU sx with IOL Dr Kauffman in [facility] ??? CORONARY ANGIOPLASTY WITH STENT PLACEMENT ? 2007 ??? INTRAVITREAL INJECTION Left 12/26/08 ?? [facility] ??? INTRAVITREAL INJECTION Left 01/23/09 ?? [facility] ??? INTRAVITREAL INJECTION Left 02/27/09 ?? [facility] ??? PRO CYSTO/URETEROSCOPY W/LITHOTRIPSY INC INDWELLING STENT INSERTION N/A 09/02/2019 ?? CYSTOURETEROSCOPY,DIAGNOSTIC,W/ LITHOTRIPSY INC. INSERTION OF INDWELLING URETERAL STENT (WRVU 8) performed by Reinaldo Norman MD at [facility] OR ??? PRO CYSTOSCOPY, INSERT URETERAL STENT Left 07/21/2019 ?? CYSTO, STENT PLACEMENT (WRVU 2.82) performed by Lupillo Bhatia MD at [facility] OR ??? PRO CYSTOSCOPY, INSERT URETERAL STENT N/A 09/02/2019 ?? CYSTO, STENT PLACEMENT (WRVU 2.82) performed by Reinaldo Norman MD at [facility] OR ??? PRO CYSTOSCOPY, REMV CALCULUS, SIMPLE N/A 09/02/2019 ?? CYSTO, REMOVAL OF STENT, FOREIGN BODY OR CALCULUS, SIMPLE (WRVU 2.81) performed by Reinaldo Norman MD at [facility] OR ??? PRO CYSTOURETHROSCOPY, URETER CATHETER N/A 09/02/2019 ?? CYSTO, RETROGRADE, URETEROPYELOGRAPHY (WRVU 2.37) performed by Reinaldo Norman MD at [facility] OR ?? Social History ? Socioeconomic History ??? Marital status: ? Spouse name: None ??? Number of children: None ??? Years of education: None ??? Highest education level: None Occupational History ??? None Social Needs ??? Financial resource strain: None ??? Food insecurity ? Worry: None ? Inability: None ??? Transportation needs ? Medical: None ? Non-medical: None Tobacco Use ??? Smoking status: Former Smoker ? Packs/day: 2.00 ? Years: 10.00 ? Pack years: 20.00 ? Types: Cigarettes ? Last attempt to quit: 07/19/1979 ? Years since quittin.3 ??? Smokeless tobacco: Never Used Substance and Sexual Activity ??? Alcohol use: No ??? Drug use: No ??? Sexual activity: None ? Comment: deferred Lifestyle ??? Physical activity ? Days per week: None ? Minutes per session: None ??? Stress: None Relationships ??? Social connections ? Talks on phone: None ? Gets together: None ? Attends hindu service: None ? Active member of club or organization: None ? Attends meetings of clubs or organizations: None ? Relationship status: None ??? Intimate partner violence ? Fear of current or ex partner: None ? Emotionally abused: None ? Physically abused: None ? Forced sexual activity: None Other Topics Concern ??? None Social History Narrative ??? None ? Family History Problem Relation Age of Onset ??? Cancer Daughter ? Heart Disease Mother ? Amblyopia Neg Hx ? Blindness Neg Hx ? Cataracts Neg Hx ? Diabetes Neg Hx ? Glaucoma Neg Hx ? Hypertension Neg Hx ? Macular Degeneration Neg Hx ? Retinal Detachment Neg Hx ? Strabismus Neg Hx ? Stroke Neg Hx ? Thyroid Disease Neg Hx ? ROS: negative for fever, chills, nausea, vomiting, diarrhea, constipation, hematuria, dysuria, CP, SOB? Patient Vitals for the past 24 hrs: Pulse BP SpO2 05/19/22 1102 73 (!) 135/98 98 % Alert, oriented, nad ?? Renal u/s reviewed by me showing stable appearing mildly complex renal cysts. ?? A/P: Right complex renal cysts, upper pole stable in appearance and size. I discussed the findings with the patient and recommended to schedule a renal u/s and f/u in 1 year. ? documented in this encounter Plan of Treatment Upcoming Encounters Date Type Specialty Care Team Description 02/26/2023 Office Visit Rheumatology Toño Rodriguez, PA [facility] DR RHEUMATOLOGY [place], [place] [address] (Wo rk) Scheduled Orders Name Type Priority Associated Diagnoses Order S chedule US Retroperitoneal Complete Imaging Routine Renal cyst, a cquired Expected: 05/19/2023, Exp ires: 11/19/2023 documented as of this encounter Goals Goal Patient Goal Associated Recent Patient-Stated? Author Type Problems Progress DH Home Medication Patient No O'Errol moralez, Compliance and Facing Rachael Resendiz, Understanding Action Plan [facility] Note: Formatting of this note might be d ifferent from the original. Patient's goal is to decrease pain by 50 % over the next 6 months (current pain 7 out of 10, would like to get down to 3) documented as of this encounter Visit Diagnoses Diagnosis Renal cyst, acquired Acquired cyst of kidney documented in this encounter Care Teams Marina Sales And Service Supervisor Relationship Specialty Start Date End Date Terri Bowser MD PCP - General Family Medicine 07/02/17 [address] [place] [address] documented as of this encounter
--- OUTSIDE RECORDS SUMMARY | 2022-07-08 09:31 | XMS_ITS | Encounter Summary ---
:1945 Author Organization [facility] Address [address] [place] [address] Care Team Providers Name Role Phone Jennifer Silva KETURAH Primary Care Provider Encounter Details Date Type Department Care Team Description 07/15/2004 Results Only [facility] - Derick Lopez MD Maple conversion [address] [place] [address] [place] [address] Social History Tobacco Use Types Packs/Day Years Used Date Never Assessed Sex Assigned at Date Recorded Not on file documented as of this encounter Plan of Treatment Not on filedocumented as of this encounter Procedures Procedure Name Priority Date/Time Associated Diagnosis Comme nts CYTOPATHOLOGY Routine 07/15/2004 0:00 EDT Results for this procedure are i n the results section . documented in this encounter Results CYTOPATHOLOGY (07/15/2004 0:00 EDT) Pathology Report: CYTOPATHOLOGY REPORT [facility] Reports generated via electronic interface contain davis ginal data; however they are lacking the format of the original re port. Caution should be taken when reading/interpreting unfo rmatted reports. Name: ? GALE KONG ? Accession #: ? [id number] : ? 1945 (Age: 59) ??F ?Collect Date: ? 06/20 Location: ? [facility] ? Receive Date : ? 07/17/2004 Provider: ?CARMELO LOPEZ MD Copy to: ? Specimen/Source: ?ThinPrep Pap Test, Cervix/ Endocervix Last Menstrual Period: ? 06/19/01 ? SPECIMEN ADEQUACY ? Satisfactory for Evaluation - transformation zone component present GENERAL CATEGORIZATION ? Negative for Intraepithelial Lesion or Malignan cy INTERPRETATION ? Reactive cellular carrol nges associated with inflammation present (includes repair). ? Document reviewed and electronically signed by: ? JULIA EVANS MD ? Report Date: ??07/22/2004 14:46 End of Report Specimen Performing Organization Address City/State/[facility] Code Phon e Number [facility] [address] [place] [address] SERVICES [facility] [address] [place] [address] documented in this encounter Visit Diagnoses Not on filedocumented in this encounter Care Teams Kindergarten Tutor Relationship Specialty Start Date End Date Jennifer Silva NP PCP - General 09/10/09 03/29/16 [facility] [address] [place] [address] documented as of this encounter
--- OUTSIDE RECORDS SUMMARY | 2022-07-08 09:31 | XMS_ITS | Encounter Summary ---
:1945 Author Organization [facility] Address [address] [place] [address] Care Team Providers Name Role Phone RicardoJennifer Kelsey REBOLLAR Primary Care Provider Encounter Details Date Type Department Care Team Description 01/07/2010 Results Only [facility] Rosalino Vasquez , Laboratory Services - [address] [place], [place] [address] [place] [address] [phone] Social History Tobacco Use Types Packs/Day Years Used Date Never Assessed Sex Assigned at Date Recorded Not on file documented as of this encounter Plan of Treatment Not on filedocumented as of this encounter Procedures Procedure Name Priority Date/Time Associated Diagnosis Comme nts CYTOPATHOLOGY Routine 01/07/2010 0:00 EDT Results for this procedure are i n the results section . documented in this encounter Results CYTOPATHOLOGY (01/07/2010 0:00 EDT) Pathology Report: CYTOPATHOLOGY REPORT ? [facility] ? [facility] Reports generated via electr onic interface contain original data; ? however they are lacking the format of the original report. ? Caution should be taken when reading/interpreting unformatted reports. ? Name: ? GALE KONG ? Accession #: ? [id number] ? : ? 1945 (Age: 64) ??F ?Collect Date: ? 01/07/2010 ? Location: ? [facility] ? Receive Date: ? 01/08/2010 ? Provider: ? ROSALINO VASQUEZ DO ? Copy to: ?JENNIFER G SIMS EY DATACAP DEVELOPER ? MACARENA BERRIAN MD ? CYTOLOGIC DIAGNOSIS: ? Submandibular gland, right, fine needle aspiration: ? 1. ?Morphologic description only. ??See comment. ? COMMENT: ? The single thin prep slide is of very low cellularity and consists of rare groups of benign salivary gl and ductal epithelium and background lymphoid cells, including tingible body macr ophages. ??These findings are not further diagnostic and may not represent the ta rgeted lesion. Re-aspiration may be helpful as ? clinically indicated. ??(Dr. Bajwa)/tracy ? Document reviewed and electr onically signed by: ? Cleo Verde MD ? Report Date: ??01/08/2010 14 :20 ? By the signature above, the attending physician certifies that he/she has ? personally conducted a gross and/or microscopic examination of the described ? specimens and rendered or co nfirmed the above diagnosis. ? Specimen Type: ? Head/Neck, Fine Needle Aspir ation, Submandibular Gland, Right ? Clinical History: ? Enlarged right subman dibular gland ? Gross Description: ? One vial of CytoLyt w as received and processed by selective cellular ? enhancement technique. ? End of Report ? Specimen Performing Organization Address City/State/[facility] Code Phon e Number [facility] [address] [place] [address] SERVICES [facility] [address] [place] [address] documented in this encounter Visit Diagnoses Not on filedocumented in this encounter Care Teams Charter Pilot Relationship Specialty Start Date End Date Jennifer Silva NP PCP - General 09/10/09 03/29/16 [facility] [address] [place] [address] documented as of this encounter
--- OUTSIDE RECORDS SUMMARY | 2022-07-08 09:31 | XMS_ITS | Encounter Summary ---
:1945 Author Organization [facility] [place] [address] Care Team Providers Name Role Phone Terri Bowser MD Primary Care Provider Encounter Details Date Type Department Care Team Description 05/19/2022 Hospital Encounter Ultrasound at [facility] Sverrisson, Renal cyst, acquired [facility] Buck Stoner MD [facility] [address] UROLOGY DEPT [phone] [place] [address] Social History Tobacco Use Types Packs/Day Years Used Date Former Smoker Cigarettes 2 10 Quit: 07/19/19 77 Smokeless Tobacco: Never Used Alcohol Use Standard Drinks/Week Comments No 0 (1 standard drink = 0.6 oz pure alcoho l) Sex Assigned at Date Recorded Not on file documented as of this encounter Medications at Time of Discharge Medication Sig Dispensed Refills Start Date End Date Omnipod Dash Pods, Gen APPLY ONE DEVICE 0 01/18 4, Cartridge DIRECTED EVERY 48 HOURS- CHANGE POD EVERY TWO DAYS lisinopriL (Zestril) 5 Take 5 mg by mouth 0 04/21 mg Tablet daily. metFORMIN XR TAKE ONE TABLET BY 0 05/03/2022 (Glucophage XR) 500 mg MOUTH EVERY DAY AT Tablet Sustained DINNER Release 24 hr predniSONE (Deltasone) Take 5 mg by mouth 0 02/15 5 mg Tablet daily. TAKE DIRECTED potassium citrate SR Take 2 tablets by mouth 360 tablet 3 (Urocit) 10 mEq (1,080 2 times daily. mg) Tablet Sustained ReleaseIndications: Kidney stones aspirin EC 81 mg Take 81 mg by mouth 0 Tablet, Delayed Release daily. (E.C.) sodium bicarbonate 650 TAKE ONE TABLET BY 0 11/28 mg Tablet MOUTH THREE TIMES A DAY metoprolol succinate XL Take 25 mg by mouth 0 (Toprol-XL) 25 mg daily. Tablet Sustained Release 24 hr citric acid-sodium Take 15 mLs by mouth 3 473 mL 05/29 citrate (Bicitra) times daily. 500-334 mg/5 mL Solution cycloSPORINE (Restasis) 1 drop 2 times daily. 0 0.05 % Dropperette ammonium lactate 0 11/02/2019 (LAC-HYDRIN) 12 % Lotion Asmanex Twisthaler 220 0 10/25/2019 mcg/ actuation (60) Aerosol Powdr Breath Activated pantoprazole EC TAKE ONE TABLET BY 3 08/05/2019 (Protonix) 40 mg MOUTH TWICE A DAY Tablet, Delayed Release (E.C.) Colace 2-In-1 8.6-50 mg TAKE ONE TO TWO TABLETS 0 10/17/2019 Tablet BY MOUTH EVERY DAY TWO TIMES A DAY NEEDED docusate sodium Take 100 mg by mouth 2 0 (COLACE) 100 mg Capsule times daily as needed. magnesium oxide Take 400 mg by mouth 0 (MAG-OX) 400 mg (241.3 daily. mg magnesium) Tablet rosuvastatin (CRESTOR) Take 10 mg by mouth 0 07/20 10 mg Tablet three times a week. levalbuterol (XOPENEX) Take 1 ampule by 0 0.31 mg/3 mL Solution nebulization every 4 for Nebulization hours as needed for Wheezing. NARCAN 4 mg/actuation 0 06/04/2017 [place], Non-Aerosol lidocaine (LIDODERM) 5 Apply 1 patch onto the 30 patch 3 0 07/02/2017 % Adhesive Patch, skin daily. (leave on Medicated for 12 hours and remove for 12 hours) BD INSULIN PEN NEEDLE USE THREE TIMES A DAY 3 09/2017 UF SHORT 31 gauge x WITH HUMALOG INSULIN 03/03 Needle nitroGLYcerin as needed. 0 04/27/2017 (NITROSTAT) 0.4 mg Tablet, Sublingual BISAC-EVAC 10 mg USE ONE SUPPOSITORY 5 03/03/2017 Suppository RECTALLY DAILY NEEDED ONETOUCH ULTRA TEST TEST FIVE TIMES A DAY 3 06/10 Strip cholecalciferol, Take by mouth daily. 0 Vitamin D3, (VITAMIN D-3) 5,000 unit Tablet BD INSULIN PEN NEEDLE USE ONCE DAILY WITH 4 07/02 UF MINI 31 gauge x LEVEMIR 01/01 Needle calcium carbonate 648 Take 650 mg by mouth 3 0 mg calcium Tablet times daily (with meals). fluticasone (FLONASE) daily. 0 12/11/2015 50 mcg/actuation [place], Suspension polyethylene glycol Take 17 g by mouth 0 (MIRALAX) 17 gram daily as needed. Powder in Packet Insulin Lispro (HUMALOG Inject 2-22 Units 0 KWIKPEN) Insulin Pen subcutaneously 3 times daily as needed. meclizine (ANTIVERT) Take 12.5 mg by mouth 0 11/20 12.5 mg tablet as needed. OXYcodone (ROXICODONE) Take 5 mg by mouth 0 5 mg immediate release daily as needed. tablet ascorbic acid (VITAMIN Take 1,000 mg by mouth 0 C) 1,000 mg tablet as needed. OMEGA-3S/DHA/EPA/FISH Take 4,800 mg by mouth 0 OIL (OMEGA 3 ORAL) 4 times daily. rosuvastatin (CRESTOR) Take by mouth. 5 mg 4 0 5 mg tablet times a week and 10mg 3 times a week digoxin (LANOXIN) 125 Take 62.5 mcg by mouth 0 mcg tablet daily. acetaminophen (TYLENOL Take 1,000 mg by mouth 0 EXTRA STRENGTH) 500 mg 3 times daily as tablet needed. Reported on 03/11/2017 verapamil (CALAN) 40 mg 40 mg, PO, Three times 0 10/04/2010 tablet daily Levalbuterol Tartrate 2 Puff(s), Inh, Q6H 0 10/04 (XOPENEX HFA) 45 mcg/Actuation inhaler documented as of this encounter Plan of Treatment Upcoming Encounters Date Type Specialty Care Team Description 02/26/2023 Office Visit Rheumatology Toño Rodriguez PA [facility] [address] [place], [place] [address] (Wo rk) documented as of this encounter Goals Goal Patient Goal Associated Recent Patient-Stated? Author Type Problems Progress DH Home Medication Patient No O'Rour ke, Compliance and Facing Rachael Resendiz, Understanding Action Plan [facility] Note: Formatting of this note might [...] results section. documented in this encounter Results US Retroperitoneal Complete (05/19/2022 10:38 AM [...] the level of a minimally distended bladder. Thank you for letting us participate in the care of this patient. If you are a [facility] er and have any questions regarding this report, please contact the number above. For patients who have ques tions, please contact the [facility] professneeraj farrell that requested your imaging first. ?Get Agustin, Staff Physician Electronically Signed Final Report ?? 11:39 am Narrative 05/19/2022 11:40 AM EDT Renal ? (Signed Final 05/19/2022 11:39 am) PATIENT INFO: ID #: ? [id number] ?: ??[birth year] (77 yrs)(F) Name: ? GALE Renteria MAYRA ? Visit Date: 05/19/2022 10:40 am PERFORMED BY: Performed By: ? Venu Petit RDMS Attending: ?Odessa Agustin MD Referred By: ?BUCK NORMAN Location: ? [place] SERVICE(S) PROVIDED: [facility] - Retroperitoneal Complete - [facility] 3517 ? [id number] INDICATIONS: renal cysts COMPARISON: CT 05/22/21 US [...] 11:39 am ) PATIENT INFO: ID #: [id number] : [birth year] (77 y rs)(F) Name: GALE KONG Visit Date: 2021 10:40 am PERFORMED BY: Performed By: Allison Petit RDMS Attending: Get Agustin MD Referred By: BUCK NORMAN Location: [place] SERVICE(S) PROVIDED: URETRO - Retroperitoneal Complete - [facility] 35[id number] INDICATIONS: renal cysts COMPARISON: CT 05/22/21 US [...] bladder. Electronically signed by: Get bowling MD, [facility] ([phone]), at 05/19/2022 11:33 AM Thank you for letting us participate in the care of this patient. If you are a [facility] er and have any questions regarding this report, please contact the number above. For patients who have ques tions, please contact the [facility] professio nal that requested your imaging first. Get Agustin, Staff Physician Electronically Signed Final Report 05/19 11:39 am Buck Norman MD [facility] GEN ORDERABLES documented in this encounter Visit Diagnoses Diagnosis Renal cyst, acquired Acquired cyst of kidney documented in this encounter Care Teams Pulverizing And Sifting Operator Relationship Specialty Start Date End Date Terri Bowser MD PCP - General Family Medicine 07/02/17 [address] [place] [address] documented as of this encounter
--- OUTSIDE RECORDS SUMMARY | 2022-07-08 09:31 | XMS_ITS | Encounter Summary ---
:1945 Author Organization [facility] [place] [address] Care Team Providers Name Role Phone Terri Bowser MD Primary Care Provider Encounter Details Date Type Department Care Team Description 06/12/2022 Telephone Urology at [facility] Evens Ortiz Jr., MD [facility] [place] [address] UROLOGY DEPT. [phone] [place], [place] [address] (Wo rk) Social History Tobacco Use Types Packs/Day Years Used Date Former Smoker Cigarettes 2 10 Quit: 07/19/19 77 Smokeless Tobacco: Never Used Alcohol Use Standard Drinks/Week Comments No 0 (1 standard drink = 0.6 oz pure alcoho l) Sex Assigned at Date Recorded Not on file documented as of this encounter Miscellaneous Notes Telephone Encounter - Nilda Lopez RN - 06/12/2022 8:53 AM EDT Pended order. Will fax to facility after signature. Telephone Encounter - Alcides Santillan - 06/12/2022 8:43 AM EDT [facility] radiology calling, they need a CRE order sent to them before they can schedule patients CT scan. documented in this encounter Plan of Treatment Upcoming Encounters Date Type Specialty Care Team Description 02/26/2023 Office Visit Rheumatology Toño Rodriguez PA [facility] RHEUMATOLOGY [place], [place] [address] (Wo rk) Scheduled Orders Name Type Priority Associated Diagnoses Order S chedule Creatinine Lab Routine Renal cyst, acquired Expecte d: 06/12/2022 (Approximate), Expires: 2022 documented as of this encounter Goals Goal [...] kidney documented in this encounter Care Teams Pilling Machine Operator Relationship Specialty Start Date End Date Terri Bowser MD PCP - General Family Medicine 07/02/17 [address] [place] [address] documented as of this encounter
--- OUTSIDE RECORDS SUMMARY | 2022-07-08 09:31 | XMS_ITS | Encounter Summary ---
:1945 Author Organization [facility] [place] [address] Care Team Providers Name Role Phone Terri Bowser MD Primary Care Provider Reason for Referral Diagnostic Test (Routine) - Authorized Specialty Diagnoses / Procedures Referred By Contact Refer red To Contact Radiology Diagnoses Renal cyst, acquired Reinaldo Norman MD [facility] Rad Ct Scan Procedures CT Abdomen wwo Contrast [facility] [place] [address] [place] [address] Referral ID Status Reason Start Expiration Visits Visits Date Date Requested Authorized [id number] Authorized Specialty 05/20/2022 11/20/2023 1 1 Service Requested Encounter Details Date Type Department Care Team Description 05/20/2022 Telephone Urology at [facility] Reinaldo Norman MD [facility] [place] [address] UROLOGY DEPT [phone] [place] [address] (Wo rk) Social History Tobacco Use Types Packs/Day Years Used Date Former Smoker Cigarettes 2 10 Quit: 07/19/19 77 Smokeless Tobacco: Never Used Alcohol Use Standard Drinks/Week Comments No 0 (1 standard drink = 0.6 oz pure alcoho l) Sex Assigned at Date Recorded Not on file documented as of this encounter Miscellaneous Notes Telephone Encounter - Reinaldo Norman MD - 05/20/2022 10:29 AM EDT I contacted the patient to inform her about the renal u/s findings. I explained to her the need for additional imaging (MRI/CT). 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 She has contrast allergy as well. She is on Prednisone 5mg daily. documented in this encounter Plan of Treatment Upcoming Encounters Date Type Specialty Care Team Description 02/26/2023 Office Visit Rheumatology Toño Rodriguez PA [facility] RHEUMATOLOGY [place], [place] [address] (Wo rk) Scheduled Orders Name Type Priority Associated Diagnoses Order S chedule CT Abdomen wwo Contrast Imaging Routine Renal cyst, acqui red Expected: 08/18/2022 (Approximate), Expires: 02/17/2023 documented as of this encounter Goals Goal Patient Goal Associated Recent Patient-Stated? Author Type Problems Progress DH Home Medication Patient No O'Rour naomy, Compliance and Facing Rachael Resendiz, Understanding Action Plan [facility] Note: Formatting of this note might be d ifferent from the original. Patient's goal is to decrease pain by 50 % over the next 6 months (current pain 7 out of 10, would like to get down to 3) documented as of this encounter Visit Diagnoses Diagnosis Renal cyst, acquired Acquired cyst of kidney documented in this encounter Care Teams Intelligent Systems Engineer Relationship Specialty Start Date End Date Terri Bowser MD PCP - General Family Medicine 07/02/17 [address] [place] [address] documented as of this encounter
--- OUTSIDE RECORDS SUMMARY | 2022-07-08 09:31 | XMS_ITS | Encounter Summary ---
:1945 Author Organization [facility] Address [address] [place] [address] Care Team Providers Name Role Phone RicardoJenniehumphrey Cole NP Primary Care Provider Encounter Details Date Type Department Care Team Description 10/15/2005 Results Only [facility] - Terri Croft MD conversion [address] [facility] [address] [place] [address] [place], [place] [address] [phone] Social History Tobacco Use Types Packs/Day Years Used Date Never Assessed Sex Assigned at Date Recorded Not on file documented as of this encounter Plan of Treatment Not on filedocumented as of this encounter Procedures Procedure Name Priority Date/Time Associated Comments Diagnosis HPV DETECTION, HIGH Routine 10/15/2005 12:00 Resu lts for this RISK TYPES EST procedure are i n the results section. CYTOPATHOLOGY Routine 10/15/2005 0:00 Results for this EST procedure are i n the results section. documented in this encounter Results HUMAN PAPILLOMA VIRUS DNA TEST (10/15/2005 12:00 EST) Specimen Description Cervix, ThinPrep [facility] vial Result Negative for HPV [facility] types 16, 18, 31, 33, 35, 39, 45, 51, 52, 56, 58, 59, and 68. Report Status Final [facility] [id number] Specimen Performing Organization Address City/State/ZIP Code Phon e Number [facility] [address] [place] [address] SERVICES [facility] [address] [place] [address] CYTOPATHOLOGY (10/15/2005 0:00 EST) Pathology Report: CYTOPATHOLOGY REPORT [facility] Reports generated via electronic interface contain davis ginal data; however they are lacking the format of the original re port. Caution should be taken when reading/interpreting unfo rmatted reports. Name: ? GALE KONG ? Accession #: ? [id number] : ? 1945 (Age: 60) ??F ?Collect Date: ? 09/19 Location: ? [facility] ? Receive Date : ? 10/21/2005 Provider: ?TERRI VAUGHAN MD Copy to: ? Specimen/Source: ? ThinPrep Pap Test, Cervix/Endocervix, processed on Met[employer] ThinPrep Imaging System, with manual evaluation Last Menstrual Period: ? Other: ? HPVA - HPV testing requested if ASC-US on the current ThinPrep Pap test. ? SPECIMEN ADEQUACY ? Satisfactory for Evaluation - transformation zone component present GENERAL CATEGORIZATION ? Epithelial Cell Abnormality INTERPRETATION ? Squamous Cell Abnormality - Atypical squamous c ells, undetermined significance. EDUCATIONAL NOTES/RECOMMENDATIONS ? [facility] recommends aaron wing the 2001 Consensus Guidelines for the Management of Women with Cervical Cytological Abnormalities (JAM A,2002;287:2120-9). Management algorithms have b een distributed by [facility] and are available online at www.ASCCP.org. ? Document reviewed and electronically signed by: ? NEDA REEDER MD [facility] ? Report Date: ??10/24/2005 18:30 End of Report Specimen Performing Organization Address City/State/ZIP Code Phon e Number [facility] [address] [place] [address] SERVICES [facility] [address] [place] [address] documented in this encounter Visit Diagnoses Not on filedocumented in this encounter Care Teams Road Manager Relationship Specialty Start Date End Date Jennifer Silva NP PCP - General 09/10/09 03/29/16 [facility] [address] [place], [place] [address] documented as of this encounter
--- OUTSIDE RECORDS SUMMARY | 2022-07-08 09:31 | XMS_ITS | Encounter Summary ---
:1945 Author Organization [facility] Address [address] [place] [address] Care Team Providers Name Role Phone Jennifer Silva NP Primary Care Provider Encounter Details Date Type Department Care Team Description 09/12/2009 Orders Only [facility] Sebastian Pierce MD Outreach [address] Sarah Funk, Level 2 [place] [address] [place], [place] [phone] (Wo rk) Social History Tobacco Use Types Packs/Day Years Used Date Never Assessed Sex Assigned at Date Recorded Not on file documented as of this encounter Plan of Treatment Not on filedocumented as of this encounter Procedures Procedure Name Priority Date/Time Associated Comments Diagnosis URINE MONOCLONAL Routine 09/12/2009 12:26 Results for this PROTEIN STUDY (UPEP EST procedur e are in WITH IMMUNOTYPING) the resul ts section. ALDOLASE Routine 09/12/2009 12:25 Results for this EST procedure are i n the results section. COMPLETE BLOOD COUNT Routine 09/12/2009 12:25 Res ults for this AND DIFFERENTIAL EST procedure a re in the results section. RHEUMATOID FACTOR Routine 09/12/2009 12:25 Result s for this EST procedure are i n the results section. SPEP WITH IMMUNOTYPING Routine 09/12/2009 12:25 R esults for this EST procedure are i n the results section. ANTI NUCLEAR AB (MICHAEL), Routine 09/12/2009 12:25 R esults for this IFA EST procedure are i n the results section. TSH Routine 09/12/2009 12:25 Results for this EST procedure are i n the results section. T4 Routine 09/12/2009 12:25 Results for this EST procedure are i n the results section. MYOGLOBIN, SERUM Routine 09/12/2009 12:25 Results for this EST procedure are i n the results section. HEMOGLOBIN A1C Routine 09/12/2009 12:25 Results f or this EST procedure are i n the results section. FOLATE Routine 09/12/2009 12:25 Results for this EST procedure are i n the results section. VITAMIN B12 Routine 09/12/2009 12:25 Results for this EST procedure are i n the results section. CK Routine 09/12/2009 12:25 Results for this EST procedure are i n the results section. COMPREHENSIVE Routine 09/12/2009 12:25 Results fo r this METABOLIC PANEL (CMP) EST proced ure are in the results section. documented in this encounter Results DAVID GRAHAM,URINE RANDOM (09/12/2009 12:26 EST) Tot Prot,Ur <5 mg/dl [facility] Albumin, Urine 44.0 % [facility] Globulins, Urine 56.0 % [facility] Comments Electrophoresis [facility] screening performed, LAB immunofixation to follow. Immunofixation,Ur Interpretation: [facility] ine Negative for free monoclonal light chains. LAB Interpreted by: Gilberto Zamora M.D. Reference Range: Negative for free monoclonal light chains. Specimen Performing Organization Address City/[facility]/ZIP Code Phon e Number [facility] [address] [place] [address] SERVICES [facility] [address] [place] [address] TSH (09/12/2009 12:25 EST) Pathologist Sig nature TSH 0.95 0.35 - 5.00 uIU/ml [facility] Specimen Performing Organization Address City/[facility]/ZIP Code Phon e Number [facility] [address] [place] [address] SERVICES [facility] [address] [place] [address] T4 (09/12/2009 12:25 EST) Pathologist Sig nature T4, Total 7.7 4.5 - 10.9 ug/dL [facility] Specimen Performing Organization Address City/[facility]/ZIP Code Phon e Number [facility] [address] [place] [address] SERVICES [facility] [address] [place] [address] RHEUMATOID FACTOR (09/12/2009 12:25 EST) Pathologist Sig nature Rheumatoid Factor <20 <20 IU/ml [facility] Specimen Performing Organization Address City/[facility]/ZIP Code Phon e Number [facility] [address] [place] [address] SERVICES [facility] [address] [place] [address] MYOGLOBIN (09/12/2009 12:25 EST) Myoglobin, Serum 0.02Reference range: 0.00 to 0.09 ERIC ROSS Unit: ug/mL Performed or Referred by: [facility] Dpt of Lab Med a nd Path, [address] ?? [place] [address], Lab Dir: Artemio yoon III, MD Specimen Performing Organization Address [facility]/ZIP Code Phon e Number [facility] [address] [place] [address] SERVICES [facility] [address] [place] [address] IMMUNOFIXATION/SPEP (09/12/2009 12:25 EST) Total Protein 7.0 6.5 - 8.3 [facility] g/dl LAB Albumin, SPEP 55.8 47.6 - 61.9 % [facility] Alpha 1, SPEP 3.8 1.4 - 4.6 % [facility] Alpha 2, SPEP 11.0 7.3 - 13.9 % [facility] Beta, SPEP 17.1 10.9 - 19.1 % [facility] Gamma, SPEP 12.3 9.5 - 24.8 % [facility] Immunofixation,se Interpretation: [facility]ON[facility] terry Negative for monoclonal immunoglobulins. LAB Interpreted by: Gilberto Zamora M.D. Reference Range: Negative for monoclonal immunoglobulins. Specimen Performing Organization Address City/[facility]/ZIP Code Phon e Number [facility] [address] [place] [address] SERVICES [facility] [address] [place] [address] HEMOGLOBIN A1C (09/12/2009 12:25 EST) Hemoglobin A1C 5.8 % [facility] Comment: Reference Range: <6% Normal Range ADA guidelines: The A1c goal for non adults in general is <7% The A1c goal for selected individual patients is as close to normal (<6%) as possible without significant hypoglycemia. Est Avg Glucose 120 mg/dl [facility] Comment: eAG represents the A1c result expressed as average glucose in mg/dl. Specimen Performing Organization Address [facility] Phon e Number [facility] [address] [place] [address] SERVICES [facility] [address] [place] [address] FOLATE (09/12/2009 12:25 EST) Pathologist Sig nature Folate >24.0 ng/mL [facility] Comment: Deficient: ??Less than 3.4 ng/mL Indeterminate: ??3.4-5.4 ng/mL Normal: ??Greater than 5.4 ng/mL Specimen Performing Organization Address [facility] Phon e Number [facility] [address] [place] [address] SERVICES [facility] [address] [place] [address] (ABNORMAL) COMPREHENSIVE METABOLIC PANEL (09/12/2009 12:25 EST) Pathologist Sig nature Potassium 4.5 3.5 - 5.0 mEq/L [facility] Sodium 139 136 - 145 mEq/L [facility] Chloride 104 96 - 110 mEq/L [facility] CO2 26 24 - 32 mEq/L [facility] Alkaline Phosphatase 129 (H) 38 - 126 U/L [facility] Bilirubin, Total <0.5 0.2 - 1.3 mg/dl [facility] AST 25 15 - 46 U/L [facility] ALT 31 9 - 52 U/L [facility] Albumin 4.7 3.4 - 4.9 g/dl [facility] Total Protein 7.4 6.5 - 8.3 g/dl [facility] Creatinine 0.64 (L) 0.7 - 1.5 mg/dl [facility] GFR, Calculated >60 ml/min/1.73m2 [facility] BUN 18 10 - 26 mg/dl [facility] Calcium 9.6 8.5 - 10.5 [facility] mg/dl Calculated Calcium 9.3 8.5 - 10.5 [facility] mg/dl Glucose, Serum 75 70 - 100 mg/dl [facility] Fasting? No [facility] Specimen Performing Organization Address City/State/ZIP Code Phon e Number [facility] [address] [place] [address] SERVICES [facility] [address] [place] [address] CK (09/12/2009 12:25 EST) Pathologist Sig nature CK 66 30 - 135 U/L [facility] Specimen Performing Organization Address City/[facility] Phon e Number [facility] [address] [place] [address] SERVICES [facility] [address] [place] [address] HEMAGRAM AND DIFFERENTIAL (09/12/2009 12:25 EST) Pathologist Sig nature WBC 7.84 4.0 - 12.4 K/cmm [facility] RBC 4.24 3.86 - 5.04 M/cmm [facility] Hemoglobin 13.8 11.6 - 15.2 gm/dl [facility] HCT 40.0 34.9 - 44.4 % [facility] MCV 94 81 - 98 fl [facility] MCH 32.7 26.7 - 33.3 pg [facility] MCHC 34.6 32.1 - 35.9 gm/dl [facility] PLT 253 141 - 320 K/cmm [facility] RDW-CV 14.0 11.7 - 14.6 % [facility] Neutrophils 66.6 45.5 - 79.7 % [facility] Lymphocytes 25.3 15.0 - 46.8 % [facility] Monocytes 6.4 1.8 - 12.0 % [facility] Eosinophils 1.4 0.6 - 6.9 % [facility] Basophils 0.3 0.2 - 1.4 % [facility] ABS Neutrophils 5.22 2.20 - 8.85 K/cmm [facility] ABS Lymphs 1.98 1.09 - 3.30 K/cmm [facility] ABS Monocytes 0.50 0.1 - 0.8 K/cmm [facility] ABS Eosinophils 0.11 0.03 - 0.61 K/cmm [facility] ABS Basophils 0.03 0.01 - 0.11 K/cmm [facility] Type of Diff: Automated [facility] Specimen Performing Organization Address [facility]/ZIP Code Phon e Number [facility] [address] [place] [address] SERVICES [facility] [address] [place] [address] VITAMIN B12 (09/12/2009 12:25 EST) Pathologist Sig nature Vitamin B-12 612 250 - 1100 pg/ml [facility] Specimen Performing Organization Address [facility] Code Phon e Number [facility] [address] [place] [address] SERVICES [facility] [address] [place] [address] ANTI NUCLEAR ANTIBODY (09/12/2009 12:25 EST) Pathologist Sig nature Anti Nuclear Ab <40 0 - 40 Dils [facility] Specimen Performing Organization Address [facility]/ZIP Code Phon e Number [facility] [address] [place] [address] SERVICES [facility] [address] [place] [address] ALDOLASE (09/12/2009 12:25 EST) Pathologist Sig nature Aldolase, S 6.0Reference range: <7.7 [facility] AB Unit: U/L Performed by: [facility], [address] , [place] ?? [place] [address], Plant Tender: Tosin Judd, Ph.D. Specimen Performing Organization Address [facility] Phon e Number [facility] [address] [place] [address] SERVICES [facility] [address] [place] [address] documented in this encounter Visit Diagnoses Not on filedocumented in this encounter Care Teams Mint Wafer Depositor Relationship Specialty Start Date End Date Jennifer Silva NP PCP - General 09/10/09 03/29/16 [facility] [address] [place], [place] [id number] documented as of this encounter
--- OUTSIDE RECORDS SUMMARY | 2022-07-08 09:31 | XMS_ITS | Encounter Summary ---
:1945 Author Organization [facility] [place] [address] Care Team Providers Name Role Phone Terri Bowser MD Primary Care Provider Reason for Visit Reason Comments Medication Refill Encounter Details Date Type Department Care Team Description 02/23/2021 Refill Rheumatology at [facility] Ning Roldan APRN [facility] [place] [address] [place] [address] [phone] (Wo rk) Social History Tobacco Use Types [...] Visit Rheumatology Toño Rodriguez PA [facility] [address] [place] [place], [place] [address] (Wo rk) documented as of this encounter Goals Goal Patient Goal Associated Recent Patient-Stated? Author Type Problems Progress DH Home Medication Patient No O'Errol moralez, Compliance and Facing Rachael Resendiz, Understanding Action Plan [facility] Note: Formatting of this note might be d ifferent from the original. Patient's goal is to decrease pain by 50 % over the next 6 months (current pain 7 out of 10, would like to get down to 3) documented as of this encounter Visit Diagnoses Not on filedocumented in this encounter Care Teams Composite Bond Technician Relationship Specialty Start Date End Date Terri Bowser MD PCP - General Family Medicine 07/02/17 [address] [place] [address] documented as of this encounter
--- OUTSIDE RECORDS SUMMARY | 2022-07-08 09:31 | XMS_ITS | Encounter Summary ---
:1945 Author Organization [facility] [place] [address] Care Team Providers Name Role Phone Terri Bowser MD Primary Care Provider Reason for Visit Reason Onset Date Comments Medication Refill 06/19/2021 Encounter Details Date Type Department Care Team Description 06/19/2021 Telephone Urology at [facility] Evens Ortiz Jr., Medication Refill [facility] [place] [address] [facility] [phone] UROLOGY DEPT. [place], [place] [address] (Wo rk) Social History Tobacco Use Types Packs/Day Years Used Date Former Smoker Cigarettes 2 10 Quit: 07/19/19 77 Smokeless Tobacco: Never Used Alcohol Use Standard Drinks/Week Comments No 0 (1 standard drink = 0.6 oz pure alcoho l) Sex Assigned at Date Recorded Not on file documented as of this encounter Miscellaneous Notes Telephone Encounter - Shakira Leonard RN - 06/19/2021 9:19 AM EDT Message received on prescription line from patient requesting a refill of Sodium bicarb. Both Dr. Ortiz and Dr. Pink's notes state that patient was to stop Sodium Bicarb. Call placed to patient. Patient states that she does not remember this and never stopped NaBicarb. She states that she feels it is helpful and would like to continue it. Will defer to Dr. Ortiz. documented in this encounter Plan of Treatment Upcoming Encounters Date Type Specialty Care Team Description 02/26/2023 Office Visit Rheumatology Toño Rodriguez PA [facility] [place], [place] [address] (Wo rk) documented as of this encounter Goals Goal Patient Goal Associated Recent Patient-Stated? Author Type Problems Progress DH Home Medication Patient No O'Dericr ke, Compliance and Facing Rachael Resendiz, Understanding Action Plan [facility] Note: Formatting of this note might be d ifferent from the original. Patient's goal is to decrease pain by 50 % over the next 6 months (current pain 7 out of 10, would like to get down to 3) documented as of this encounter Visit Diagnoses Not on filedocumented in this encounter Care Teams Installer Relationship Specialty Start Date End Date Terri Bowser MD PCP - General Family Medicine 07/02/17 [address] [place] [address] documented as of this encounter
--- OUTSIDE RECORDS SUMMARY | 2022-07-08 09:31 | XMS_ITS | Encounter Summary ---
:1945 [place] [address] Care Team Providers Name Role Phone Terri Bowser MD Primary Care Provider Encounter Details Date Type Department Care Team Description 05/29/2021 Ancillary Procedure Radiology Library at [facility] MD [place] [place] [address] UROLOGY DEPT [phone] [place], [place] [address] (Wo rk) Social History Tobacco [...] 02/26/2023 Office Visit Rheumatology Toño Rodriguez PA [facility] [address] [place], [place] [address] (Wo rk) documented as of this encounter Goals Goal Patient Goal Associated Recent Patient-Stated? Author Type Problems Progress Home Medication Patient No O'Dericr ke, Compliance and Facing Rachael Resendiz, Understanding Action Plan [facility] Note: Formatting of this note might be d ifferent from the original. Patient's goal is to decrease pain by 50 % over the next 6 months (current pain 7 out of 10, would like to get down to 3) documented as of this encounter Procedures Procedure Name Priority Date/Time Associated Diagnosis Comme nts FILM LIBRARY Routine 05/29/2021 12:00 AM Results for this STORAGE ONLY CT EDT procedure ar e in ABDOMEN AND PELVIS the resul ts section. documented in this encounter Results Film Library- Storage Only CT Abdomen & Pelvis (05/29/2021 12:00 AM EDT) Specimen (Source) Anatomical Location Collection Method / Collectio n Time Received Time / Laterality Volume Narrative [facility] - 05/30/2021 6:17 AM EDT This exam is auto-finalizing. It's purpo se is for storage only. Reinaldo Norman MD IMG FILM LIBRARY ORDERABLES Performing Organization Address City/State/ZIP Code Phon e Number [place], [place] documented in this encounter Visit Diagnoses Not on filedocumented in this encounter Care Teams Supervisor Production Managing Relationship Specialty Start Date End Date Terri Bowser MD PCP - General Family Medicine 07/02/17 [address] [place] [address] documented as of this encounter
--- OUTSIDE RECORDS SUMMARY | 2022-07-08 09:31 | XMS_ITS | Encounter Summary ---
:[address] [facility] Address [address] [place] [address] Care Team Providers Name Role Phone Jennifer Silva KETURAH Primary Care Provider Encounter Details Date Type Department Care Team Description 10/20/[address] [facility] - Derick Lopez MD [employer] [address] [place] [address] [place] [address] Social History Tobacco Use Types Packs/Day Years Used Date Never Assessed Sex Assigned at Date Recorded Not on file documented as of this encounter Plan of Treatment Not on filedocumented as of this encounter Procedures Procedure Name Priority Date/Time Associated Diagnosis Comme nts CYTOPATHOLOGY Routine 10/20/2001 0:00 EST Results for this procedure are i n the results section . documented in this encounter Results CYTOPATHOLOGY (10/20/2001 0:00 EST) Pathology Report: CYTOPATHOLOGY REPORT [facility] Reports generated via electronic interface contain davis ginal data; however they are lacking the format of the original re port. Caution should be taken when reading/interpreting unfo rmatted reports. Name: ? GALE KONG ? Accession #: ? T : ? 1945 (Age: 56) ??F ?Collect Date: ? 11/2001 Location: ? [facility] ? Receive Date : ? 10/21/2001 Provider: ?CARMELO LOPEZ MD Copy to: ? Specimen/Source: ?ThinPrep Pap Test, Cervix/ Endocervix Last Menstrual Period: ? 06/19/01 ? SPECIMEN ADEQUACY ? Satisfactory for Evaluation - transformation zone component present GENERAL CATEGORIZATION ? Negative for Intraepithelial Lesion or Malignan cy INTERPRETATION ? Reactive cellular carrol nges associated with inflammation present (includes repair). ? Document reviewed and electronically signed by: ? SHANIQUE MANN MD ? Report Date: ??10/26/2001 11:37 End of Report Specimen Performing Organization Address City/State/ZIP Code Phon e Number [facility] [address] [place] [address] SERVICES [facility] [address] [place] [address] documented in this encounter Visit Diagnoses Not on filedocumented in this encounter Care Teams Physician Assistant Certified Relationship Specialty Start Date End Date Jennifer Silva NP PCP - General 09/10/09 03/29/16 [facility] [address] [place] [address] documented as of this encounter
--- OUTSIDE RECORDS SUMMARY | 2022-07-08 09:31 | XMS_ITS | Encounter Summary ---
:1945 Author Organization [facility] [place] [address] Care Team Providers Name Role Phone Terri Bowser MD Primary Care Provider Reason for Visit Reason Onset Date Comments Prior Authorization 01/28/2021 leflunomide (Arava) 10 mg Tablet Encounter Details Date Type Department Care Team Description 01/28/2021 Telephone Rheumatology at [facility] Bessie York, Prior Authorization [facility] Jade MENDOZA (leflunomide (Arava) [address] [place] [address] mg Tablet ) [phone] Social History Tobacco Use Types Packs/Day Years Used Date Former Smoker Cigarettes 2 10 Quit: 07/19/19 77 Smokeless Tobacco: Never Used Alcohol Use Standard Drinks/Week Comments No 0 (1 standard drink = 0.6 oz pure alcoho l) Sex Assigned at Date Recorded Not on file documented as of this encounter Miscellaneous Notes Telephone Encounter - Laine Varela CMA - 01/28/2021 2:01 PM EDT Medication Prior Authorization for Primary Care Approved: Leflunomide 10MG tablets Start Date: 12/29/2020 End Date: 01/28/2022 Case/Reference #: [id number] See Approval Letter in scanned documents. Additional Notes: Telephone Encounter - Bessie YorkREJI - 01/28/2021 11:14 AM EDT Medication Prior Authorization for Primary [place] [address] Request received via: cmm Patient: Francisca Kong Patient : 1945 Insurance Company: [employer] Sent via: cm Phone: Rcie: [id number] - Rx #: [id number] Physician: Ning Roldan APRN ?? Medication Requested: leflunomide (Arava) 10 mg Tablet Frequency/Sig: Take 1 tablet daily for 2 wks. If tolerated, increase to 2 tablets once daily. Disp: 60 tablets Refills: 0 Currently taking: no Diagnosis for this medication: Psoriatic arthritis L40.50 Prior medications trialed in this patient: Adjacent treatments:predniSONE (Deltasone) 1 mg Tablet Medication:etanercept (Enbrel) Approx Dates: 04/2017 to 04/2018 Outcome/Adverse Reactions: Medication: Adalimumab (Humira) Approx Dates: 05/2019 to 05/2020 Outcome/Adverse Reactions: Medication: methotrexate Approx Dates: 09/2010 to 12/2014 Outcome/Adverse Reactions: Plaquenil- because of eye MTX -trouble breathing voltaren due to kidneys she reports Additional Notes: Office Note 01/24/2021 Ning FRIED INTERVAL HISTORY: She couldn't get rides here and can't drive with vision. She was seeing rheum in [place] but Retired She is on 3mg of [...] does go once or twice a day ?? Past OV Salma Yan 05/06/19 Last seen 2016. Followed in [facility]. Reports had been followed by . Prior treatments: MTX (trouble breathing), leflunomide (diarrhea); enbrel (unspecified). Reports all my [facility] and prednisone. ?? Has been on a slow prednisone taper [...] modest benefit for hand and wrist pain. ?? At last office visit, discussed Cymbalta -> [...] through diet, vitamin D supplementation per PCP. ?? Periodic eye exam -> local site q 6 months, annual. (-) recurrent illness or infection. (-) other changes in medical, surgical, or social history. Is up to date on routine health maintenance and screening exams. PLAN/RECOMMENDATIONS: I reviewed prior clinic notes and referral notes. Active dz on exam, not currently on dmard. On atsa4rs thru PCP for PMR. Did not tolerate a variety of medications. 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 Prior clinic notes suggest diarrhea with leflunomide but she can not remember the experience. Did not tolerate mtx, did not tolerate ssz and with sulfa antibx allergy, no hcq with eye disease. ?? We reviewed administration, se, adrs, expectations of lef today. Start 10mg for 2 wks. Then she willcheck in with me and as long as tolerate will increase to 20mg. Check CMP, CBC, CRP, ESR today. Reviewed DMARD hold parameters: Clinic contact in event of fever, chills, antibx use, planned surgery Had both covid vaccines Check labs in 1 month at [facility]. Gave Kenalog 40mg IM today. Reviewed possible SE of steroid. Stay at pred 3mg for now, as managed by PCP. Perhaps the addition of lef will allow us to get her off pred in the future. Ongoing calcium and vitamin D dietary intake and supplementation. Recently had DEXA with PCP, awaiting results. documented in this encounter Plan of Treatment Upcoming Encounters Date Type Specialty Care Team Description 02/26/2023 Office Visit Rheumatology Toño Rodriguez PA [facility] [address], [place] [address] (Wo rk) documented as of this encounter Goals Goal Patient Goal Associated Recent Patient-Stated? Author Type Problems Progress Home Medication Patient No O'Rour naomy, Compliance and Facing Rachael Resendiz, Understanding Action Plan [facility] Note: Formatting of this note might be d ifferent from the original. Patient's goal is to decrease pain by 50 % over the next 6 months (current pain 7 out of 10, would like to get down to 3) documented as of this encounter Visit Diagnoses Not on filedocumented in this encounter Care Teams Drying Machine Operator Package Yarns Relationship Specialty Start Date End Date Terri Bowser MD PCP - General Family Medicine 07/02/17 [address] [place] [address] documented as of this encounter
--- OUTSIDE RECORDS SUMMARY | 2022-07-08 09:31 | XMS_ITS | Encounter Summary ---
:1945 Author Organization [facility] [place] [address] Care Team Providers Name Role Phone Terri Bowser MD Primary Care Provider Reason for Visit Reason Comments Renal Cysts Encounter Details Date Type Department Care Team Description 05/20/2021 Office Visit Urology at [facility] Buck Norman Hematuria, unspecified type; [facility] MD [place] [address] UROLOGY DEPT [phone] [place], [place] [address] Social History Tobacco Use Types [...] Sign Reading Time Taken Comments Blood Pressure 137/82 05/20/2021 1:23 PM EDT Pulse 77 05/20/2021 1:23 PM EDT Temperature - - Respiratory Rate - - Oxygen Saturation - - Inhaled Oxygen Concentration - - Weight - - Height - - Body Mass Index - - documented in this encounter Progress Notes Buck Norman MD - 05/20/2021 1:20 PM EDT UROLOGY NOTE ?? Mrs Kong is here as a scheduled follow up for right complex renal cysts. She has done well since last visit and denies any flank pain or hematuria. She has not passed any kidney stones recently and is being followed by Dr Ortiz for this. She underwent a follow up renal u/s today and is here to reviewthe results. ? Past Medical History: Diagnosis Date ??? 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 Kidney failure ? [facility] admission for L kidney failure; stent placed [...] OU sx with IOL Dr Kauffman in [facility] ??? CORONARY ANGIOPLASTY WITH STENT PLACEMENT ? 2007 ??? INTRAVITREAL INJECTION Left 12/26/08 ?? [facility] ??? INTRAVITREAL INJECTION Left 01/23/09 ?? [facility] ??? INTRAVITREAL INJECTION Left 02/27/09 ?? [facility] ??? PRO CYSTO/URETEROSCOPY W/LITHOTRIPSY INC INDWELLING STENT INSERTION N/A 09/02/2019 ?? CYSTOURETEROSCOPY,DIAGNOSTIC,W/ LITHOTRIPSY INC. INSERTION OF INDWELLING URETERAL STENT (WRVU 8) performed by Buck Norman MD at [facility] OR ??? PRO CYSTOSCOPY, INSERT URETERAL STENT Left 07/21/2019 ?? CYSTO, STENT PLACEMENT (WRVU 2.82) performed by Lupillo Bhatia MD at [facility] OR ??? PRO CYSTOSCOPY, INSERT URETERAL STENT N/A 09/02/2019 ?? CYSTO, STENT PLACEMENT (WRVU 2.82) performed by Buck Norman MD at [facility] OR ??? PRO CYSTOSCOPY, REMV CALCULUS, SIMPLE N/A 09/02/2019 ?? CYSTO, REMOVAL OF STENT, FOREIGN BODY OR CALCULUS, SIMPLE (WRVU 2.81) performed by Buck Norman MD at [facility] OR ??? PRO CYSTOURETHROSCOPY, URETER CATHETER N/A 09/02/2019 ?? CYSTO, RETROGRADE, URETEROPYELOGRAPHY (WRVU 2.37) performed by Buck Norman MD at [facility] OR ?? Social History ? Socioeconomic History [...] None ? Gets together: None ? Attends zoroastrian service: None ? Active member of club [...] nausea, vomiting, diarrhea, constipation, hematuria, dysuria, CP, SOB ?? Patient Vitals for the past 24 hrs: Pulse BP 05/20/21 1323 77 137/82 Alert, oriented, nad ?? Renal (Signed Final 05/20/2021 12:40 pm) ?? PATIENT INFO: ID #: [id number] : [birth year] (76 yrs)(F) Name: GALE KONG Visit Date: 05/20/2021 11:37 am ?? PERFORMED BY: Performed By: Kary Forbes RDMS Attending: Christa Kang MD Referred By: BUCK NORMAN Location: [place] ?? SERVICE(S) PROVIDED: URETRO - Retroperitoneal Complete - [id number] ?? INDICATIONS: right renal cysts and nephrolithiases ?? COMPARISON: Most recent prior renal/bladder utlrasound 10/30/20 and dating back to 11/08/2019 ?? RIGHT KIDNEY: Size (cm) L: 14.8 Cortical Thickness: Normal Cortical Echogenicity: Normal Hydronephrosis: No sonographic evidence ?? Comment: No renal calculi seen. Several cysts, two of which are complex with avascular septations,inferior pole measures 6.5 x 6.7 x 6.5cm, superior pole 2.5 x 1.9 x 2 cm. LEFT KIDNEY: Size (cm) L: 10.7 Cortical Thickness: Normal Cortical Echogenicity: Normal Hydronephrosis: No sonographic evidence ?? Comment: No renal calculi seen. ?? URINARY BLADDER: Pre-void (cm) L: 2.9 AP: 5.5 TV: 6.3 Vol (ml): 52.6 ?? Comment: Partially distended, partially obscured by bowel gas. ?? IMPRESSION ?? 1. No collecting system dilatation or sonographically evident nephrolithiasis bilaterally. 2. Right inferior pole cyst with avascular septations measures up to 6.7 cm in greatest diameter, largely unchanged from the most recent 10/30/2020 ultrasound. 3. Right superior pole cyst with avascular septations measures up to 2.5 cm in maximal diameter and has increased in size when compared to serial ultrasounds dating back to 11/08/2019, most recent comparison October 2020 ultrasound measuring up to 1.6 cm in maximal diameter. Consider CT or MRI to further characterize to exclude the possibility of a cystic neoplasm. Unexpected finding. 4. Limited evaluation the partially distended bladder, partially obscured by overlying bowel gas. A/P: Right complex renal cysts, upper pole increasing in size. I discussed the findings with the patient and recommended to schedule a CT urogram to further characterize the cysts. ?? documented in this encounter Plan of Treatment Upcoming Encounters Date Type Specialty Care Team Description 02/26/2023 Office Visit Rheumatology Toño Rodriguez PA [facility] [address] [place], [place] [address] (Wo rk) documented as of this encounter Goals Goal Patient Goal Associated Recent Patient-Stated? Author Type Problems Progress DH Home Medication Patient No Asya moralez, Compliance and Facing Rachael Resendiz, Understanding Action Plan [facility] Note: Formatting of this note might be d ifferent from the original. Patient's goal is to decrease pain by 50 % over the next 6 months (current pain 7 out of 10, would like to get down to 3) documented as of this encounter Visit Diagnoses Diagnosis Hematuria, unspecified type Complex renal cyst Other specified congenital cystic kidney disease documented in this encounter Care Teams Color Straining Bag Washer Relationship Specialty Start Date End Date Terri Bowser MD PCP - General Family Medicine 07/02/17 [address] [place] [address] documented as of this encounter
--- OUTSIDE RECORDS SUMMARY | 2022-07-08 09:31 | XMS_ITS | Encounter Summary ---
:1945 Author Organization [facility] Address [address] [place] [address] Care Team Providers Name Role Phone Jennifer Ledesma KETURAH Primary Care Provider Encounter Details Date Type Department Care Team Description 07/07/2003 Results Only [facility] - Derick Lopez MD [employer] [address] [place] [address] [place] [address] Social History Tobacco Use Types Packs/Day Years Used Date Never Assessed Sex Assigned at Date Recorded Not on file documented as of this encounter Plan of Treatment Not on filedocumented as of this encounter Procedures Procedure Name Priority Date/Time Associated Diagnosis Comme [facility] SURGICAL PATHOLOGY Routine 07/07/2003 0:00 EDT Re sults for this procedure are i n the results section. documented in this encounter Results SURGICAL PATHOLOGY (07/07/2003 0:00 EDT) Pathology Report: SURGICAL PATHOLOGY REPORT LEONID CARREON Reports generated via electronic interface contain davis ginal data; LAB however they are lacking the format of the original re port. Caution should be taken when reading/interpreting unfo rmatted reports. Name: ? GALE KONG ? Accession #: ? [id number] ? : ? 1945 (Age: 58) ??F ? Collect Date: ? 07/07/2003 ? Location: ? [facility] ? Receive Date: ? 003 ? Provider: CARMELO LOPEZ MD Copy to: JENNIFER LEDESMA SAMPLER PICKUP ? Final Pathologic Diagnosis: ? Endometrium, biopsy: 1. ?Extensive stromal breakdown wit h rare fragments of secretory endometrium. ??See comment. 2. ?No hyperplasia identified. Comment: ? Heliarc Welder sections have been reviewed at i ntradepartmental consultation conference. ??Sections show extensive stromal breakdown with rare fragments with secretory-type glands. ??Such findings are seen in menstrual pattern endometrium. ??(Dr. Samayoa)/[facility] Document reviewed and electronically signed by: JEANETH HERNANDEZ MD Report ??Date: 07/12/2003 18:17 By the signature above, the attending physician certif ies that he/she has personally conducted a gross and/or microscopic examin ation of the described specimens and rendered or confirmed the above diagnosi s. Specimen(s) Received: ? Endometrial bx Clinical History: ? PMB Gross Description: ? Received in formalin labeled Gerry and endo metrium are multiple fragments of dark red, hemor rhagic tissue which measure in aggregate 1.7 x 1.0 x 0.7 cm. ??the specimen is entirely submi tted in one cassette. ??(Dr. Samayoa)/[facility] End of Report Specimen Performing Organization Address City/State/ZIP Code Phon e Number [facility] [address] [place] [address] SERVICES [facility] [address] [place] [address] documented in this encounter Visit Diagnoses Not on filedocumented in this encounter Care Teams Operations Lead Relationship Specialty Start Date End Date Jennifer Ledesma NP PCP - General 09/10/09 03/29/16 [facility] [address] [place] [address] [phone] (work) documented as of this encounter
--- OUTSIDE RECORDS SUMMARY | 2022-07-08 09:31 | XMS_ITS | Encounter Summary ---
:1945 Author Organization [facility] Address [address] [place] [address] Care Team Providers Name Role Phone Jennifer Silva PAYROLL AUDITOR Primary Care Provider Encounter Details Date Type Department Care Team Description 09/19/2009 Hospital Encounter [facility] Unknown, P MD bright [facility]phys[facility] [address] [facility] [address] [place] [id number] [place] MD Jorge [address] [place], [place] [id number] Social History Tobacco Use Types Packs/Day Years Used Date Never Assessed Sex Assigned at Date Recorded Not on file documented as of this encounter Discharge Disposition Disposition Code Departure Means Destination Home or Self Correction documented in this encounter Plan of Treatment Not on filedocumented as of this encounter Visit Diagnoses Not on filedocumented in this encounter Care Teams Sustainability Communicator Relationship Specialty Start Date End Date Jennifer Silva, KETURAH PCP - General 09/10/09 03/29/16 [facility] [address] [place], [place] [address] documented as of this encounter
--- OUTSIDE RECORDS SUMMARY | 2022-07-08 09:31 | XMS_ITS | Encounter Summary ---
:1945 Author Organization [facility] [place] [address] Care Team Providers Name Role Phone Terri Bowser MD Primary Care Provider Encounter Details Date Type Department Care Team Description 05/20/2021 Hospital Encounter Ultrasound at [facility] Sverrisson, Complex renal cyst [facility] Buck Stoner MD [place], [place] CENTER [address] UROLOGY DEPT [phone] [place] [address] Social History Tobacco Use Types Packs/Day Years Used Date Former Smoker Cigarettes 2 10 Quit: 07/19/19 79 Smokeless Tobacco: Never Used Alcohol Use Standard Drinks/Week Comments No 0 (1 standard drink = 0.6 oz pure alcoho l) Sex Assigned at Date Recorded Not on file documented as of this encounter Medications at Time of Discharge Medication Sig Dispensed Refills Start Date End Date aspirin EC 81 mg Take 81 mg by mouth 0 Tablet, Delayed daily. Release (E.C.) sodium bicarbonate 650 TAKE ONE TABLET BY 0 11/28 mg Tablet MOUTH THREE TIMES A DAY metoprolol succinate Take 25 mg by mouth 0 2019 XL (Toprol-XL) 25 mg daily. Tablet Sustained Release 24 hr citric acid-sodium Take 15 mLs by mouth 3 473 mL 05/29 citrate (Bicitra) times daily. 500-334 mg/5 mL Solution cycloSPORINE 1 drop 2 times daily. 0 (Restasis) 0.05 % Dropperette ammonium lactate 0 11/02/2019 (LAC-HYDRIN) 12 % Lotion Asmanex Twisthaler 220 0 10/25/2019 mcg/ actuation (60) Aerosol Powdr Breath Activated pantoprazole EC TAKE ONE TABLET BY 3 08/05/2019 (Protonix) 40 mg MOUTH TWICE A DAY Tablet, Delayed Release (E.C.) Colace 2-In-1 8.6-50 TAKE ONE TO TWO 0 10/17/2019 mg Tablet TABLETS BY MOUTH EVERY DAY TWO TIMES A DAY NEEDED docusate sodium Take 100 mg by mouth 2 0 (COLACE) 100 mg times daily as needed. Capsule magnesium oxide Take 400 mg by mouth 0 (MAG-OX) 400 mg (241.3 daily. mg magnesium) Tablet rosuvastatin (CRESTOR) Take 10 mg by mouth 0 07/20 10 mg Tablet three times a week. levalbuterol (XOPENEX) Take 1 ampule by 0 0.31 mg/3 mL Solution nebulization every 4 for Nebulization hours as needed for Wheezing. NARCAN 4 mg/actuation 0 06/04/2017 [place], Non-Aerosol lidocaine (LIDODERM) 5 Apply 1 patch [...] fluticasone (FLONASE) daily. 0 12/11/2015 50 mcg/actuation [place], Suspension polyethylene glycol Take 17 g by mouth 0 (MIRALAX) 17 gram daily as needed. Powder in Packet Insulin Lispro Inject 2-22 Units 0 (HUMALOG KWIKPEN) subcutaneously 3 times Insulin Pen daily as needed. meclizine (ANTIVERT) Take 12.5 [...] needed. Reported on 03/11/2017 verapamil (CALAN) 40 40 mg, PO, Three times 0 mg tablet daily Levalbuterol Tartrate 2 Puff(s), Inh, Q6H 0 10/04 (XOPENEX HFA) 45 mcg/Actuation inhaler predniSONE (Deltasone) Take 1 tablet by mouth 7 tablet 0 0 03/26/2021 05/19/2022 10 mg Tablet daily. predniSONE (Deltasone) TAKE 4 TABLETS BY 0 202005/19/2022 1 mg Tablet MOUTH DAILY FOR NOW WILL TAPER PER PROVIDER INSTRUCTIONS potassium citrate SR Take 2 tablets by 120 tablet 11 08/03/20 20 08/02/2021 (Urocit) 10 mEq (1,080 mouth 2 times daily. mg) Tablet Sustained ReleaseIndications: Kidney stones metFORMIN (GLUCOPHAGE) Take 500 mg by mouth 0 05/19/2022 500 mg Tablet daily. LEVEMIR FLEXTOUCH 12 Units daily. 12 07/02/2016 Insulin Pen lisinopril Take 5 mg by mouth 0 10/31/20152021 (PRINIVIL;ZESTRIL) 10 daily. mg Tablet aspirin 325 mg tablet Take 81 mg by mouth 0 05/19/2022 daily. documented as of this encounter Plan of Treatment Upcoming Encounters Date Type Specialty Care Team Description 02/26/2023 Office Visit Rheumatology Toño Rodriguez PA [facility] [place]HE[place], [place] [address] (Wo rk) documented as of this encounter Goals Goal Patient Goal Associated Recent Patient-Stated? Author Type Problems Progress DH Home Medication Patient No Dario'Errol moralez, Compliance and Facing Rachael Resendiz, Understanding Action Plan [facility] Note: Formatting of this note might be d ifferent from the original. Patient's goal is to decrease pain by 50 % over the next 6 months (current pain 7 out of 10, would like to get down to 3) documented as of this encounter Procedures Procedure Name Priority Date/Time Associated Comments Diagnosis US RETROPERITONEAL Routine 05/20/2021 11:37 Complex renal cyst Results for this COMPLETE AM EDT procedure are i n the results section. documented in this encounter Results (ABNORMAL) US Retroperitoneal Complete (05/20/2021 11:37 AM EDT) Anatomical Region Laterality Modality Abdomen Ultrasound Specimen (Source) Anatomical Collection Method Collection Time Re ceived Time Location / / Volume Laterality 05/20/2021 11:37 AM EDT Impressions 05/20/2021 12:40 PM EDT 1. ??No collecting system dilatation or sonographically evident nephrolithiasis bilaterally. 2. ??Right inferior pole cyst with avas cular septations measures up to 6.7 cm in greatest diameter, largely unchanged fr om the most recent 10/30/2020 ultrasound. 3. ??Right superior pole cyst with avas cular septations measures up to 2.5 cm in maximal diameter and has increased in s ize when compared to serial ultrasounds dating back to 11/08/2019, most recent c omparison October 2020 ultrasound measuring up to 1.[address]. Consider CT or MRI to further characterize to exclude the possibility of a cystic neoplasm. Unexpected finding. 4. ??Limited evaluation the partially d istended bladder, partially obscured by overlying bowel gas. Thank you for letting us participate in the care of this patient. If you are a [facility] er and have any questions regarding this report, please contact the number above. For patients who have ques tions, please contact the [facility] that [facility] your [facility] first. ? Christa Kang, Staff Physician Electronically Signed Final Report ?? 12:40 pm Narrative 05/20/2021 12:40 PM EDT Renal ? (Signed Final 05/20/2021 12:40 pm) PATIENT INFO: ID #: ? [id number] ?: ??[birth year] (76 yrs)(F) Name: ? GALE KONG ? Visit Date: 05/20/2021 11:37 am PERFORMED BY: Performed By: ? Josh Forbes RDMS Attending: ?Pearl NANCE, Christa Santiago Referred By: ?BUCK POPE Location: ? [place] SERVICE(S) PROVIDED: URETRO - Retroperitoneal Complete - [id number] ? [id number] INDICATIONS: right renal cysts and nephrolithiases COMPARISON: Most recent prior renal/bladder utlraso und 10/30/20 and dating back to 11/08/2019 RIGHT KIDNEY: Size (cm) ?L: ??14.8 Cortical Thickness: ?Normal Cortical Echogenicity: ?? Normal Hydronephrosis: ?No sonogr aphic evidence Comment: ?No renal calculi seen. ? Several cysts, two of which are complex with ? avascular septations, inferior pole measures 6.5 x ? 6.7 x 6.5cm, superior pole 2.5 x 1.9 x 2 cm. LEFT KIDNEY: Size (cm) ?L: ??10.7 Cortical Thickness: ?Normal Cortical Echogenicity: ?? Normal Hydronephrosis: ?No sonogr aphic evidence Comment: ?No renal calculi seen. URINARY BLADDER: Pre-void (cm) ? L: ??2.9 ? A P: ??5.5 ? TV: ??6.3 Vol (ml): ?52.6 Comment: ?Partially distended, part ially obscured by bowel gas. Resulting Agency Comment Unexpected Finding Buck HIRSCH GEN ORDERABLES documented in this encounter Visit Diagnoses Diagnosis Complex renal cyst Other specified congenital cystic kidney disease documented in this encounter Care Teams Mail Clerk Bills Relationship Specialty Start Date End Date Terri Bowser MD PCP - General Family Medicine 07/02/17 [address] [place] [address] documented as of this encounter
--- OUTSIDE RECORDS SUMMARY | 2022-07-08 09:31 | XMS_ITS | Encounter Summary ---
:1945 Author Organization [facility] [place] [address] Care Team Providers Name Role Phone Terri Bowser MD Primary Care Provider Encounter Details Date Type Department Care Team Description 06/17/2021 TH Visit Rheumatology at [facility] Michael, Psoriatic arthritis (Primary Dx); (TeleHealth) [facility] AISHA Junior Fibromyalgia; [facility] High risk medication use; [place], [place] [address]ENTER DR Rodriguez, unspecified location; [phone] RHEUMATOLOGY Gastroesophageal reflux disease, unspeci fied whether esophagitis present [phone] [place] [address] Social History Tobacco Use Types Packs/Day Years Used Date Former Smoker Cigarettes 2 10 Quit: 07/19/19 77 Smokeless Tobacco: Never Used Alcohol Use Standard Drinks/Week Comments No 0 (1 standard drink = 0.6 oz pure alcoho l) Sex Assigned at Date Recorded Not on file documented as of this encounter Progress Notes Toño Rodriguez PA - 06/17/2021 2:30 PM EDTSummary: PsA Rheumatology Outpatient Note Chart review conducted prior to the visit includes review of PMHx, medications, allergies, and prioroffice notes. The most pertinent findings are listed below. The Patient History Form was reviewed with the patient, which included review of ROS, social hx, pmhx, famhx, current and prior medications, allergies, IZs, and ADLs. The form is scanned into the patient's chart. This patient, because they are at increased risk for complications of COVID-19 due to underlying medical conditions AND/OR becausethere is a public health emergency, did not come to the office for non-emergency care. The patient verbally consented to this electronic visit. The patient understands the limitations of not being physically examined and that we may not be able to address all issues. The concept of telemedicine has been described to the patient. Patient has been informed of the anticipated benefits and possible risks. Patient understands information provided regarding telemedicine, has had the opportunity to ask questions about this information, and all questions have been answered to the patient's satisfaction. Patient consents for the use of telemedicine in his or her medical care and authorizes the transmissionof any relevant medical information to providers and staff involved in the patient's medical or mental health care. History of Present Illness: Francisca Kong is a 76 y.o. female who presents today for evaluation of PsA. Assessment : Per Ning Roldan SUPERVISOR WARPING DEPARTMENT: ASSESSMENT : Psoriatic arthritis, responsive to steroid; chronic steroid use; Fibromyalgia: Off DMARD after we trialed Arava but [...] Recently had DEXA with PCP, awaiting results. Interval History: Patient presents today for follow-up. She tells me she is achy in many of her joints. She is worriedthat she might have recurrent PMR she is going to see her primary care provider on Thursday for updated labs she is complaining of low-grade pain in the knees hips the hip pain is present when she walks and when she sits. Occasionally she feels it in her groin. Occasionally she has pain in her shoulders. She has failed a number of medications to rheumatology including leflunomide, methotrexate, Humira,due to reported sepsis, she is allergic to sulfur and failed hydroxychloroquine, she does not take NSAIDs because she tells me she has kidney disease it sounds like she gets recurrent uric acid stones.She was prescribed Otezla in the past and she could not afford it. Does not sound like she has had any episodes of dactylitis. Review of Systems Constitutional: Negative for fever, weight loss and chills. Respiratory: Negative for cough, shortness of breath, orthopnea and pleuritic pain. Gastrointestinal: Negative for vomiting, nausea and trouble swallowing. HENT: Negative. Psychiatric/Behavioral: Negative for social aversion. Hematologic/Lymphatic: Negative. Allergic/Immunologic: Negative for recurrent infections. Musculoskeletal: Positive for joint pain and stiffness. Negative for myalgias, joint swelling and fracture. Endocrine: Negative for polydipsia and polyphagia. Cardiovascular: Negative for near-syncope and syncope. Skin: Negative for urticaria, blister and photosensitivity. Allergies Allergies Allergen Reactions ??? Albuterol Other [...] to Visit Medication Sig Dispense Refill ??? predniSONE (Deltasone) 10 mg Tablet Take [...] BY MOUTH THREE TIMES A DAY ??? potassium citrate SR (Urocit) 10 mEq (1,080 mg) Tablet Sustained Release Take 2 tablets by mouth2 times daily. 120 tablet 11 ??? metoprolol succinate XL (Toprol-XL) 25 mg [...] needed for Wheezing. ??? NARCAN 4 mg/actuation [place], Non-Aerosol ??? lidocaine (LIDODERM) 5 % Adhesive [...] mouth daily. ??? fluticasone (FLONASE) 50 mcg/actuation [place], Suspension daily. ??? polyethylene glycol (MIRALAX) 17 [...] OU sx with IOL Dr Kauffman in [facility] ??? CORONARY ANGIOPLASTY WITH STENT PLACEMENT 2007 ??? INTRAVITREAL INJECTION Left 12/26/08 [facility] ??? INTRAVITREAL INJECTION Left 01/23/09 [facility] ??? INTRAVITREAL INJECTION Left 02/27/09 [facility] ??? PRO CYSTO/URETEROSCOPY W/LITHOTRIPSY INC INDWELLING STENT INSERTION N/A 09/02/2019 CYSTOURETEROSCOPY,DIAGNOSTIC,W/ LITHOTRIPSY INC. INSERTION OF INDWELLING URETERAL STENT (WRVU 8) performed by Reinaldo Norman MD at [facility] OR ??? PRO CYSTOSCOPY, INSERT URETERAL STENT Left 07/21/2019 CYSTO, STENT PLACEMENT (WRVU 2.82) performed by Lupillo Bhatia MD at [facility] OR ??? PRO CYSTOSCOPY, INSERT URETERAL STENT N/A 09/02/2019 CYSTO, STENT PLACEMENT (WRVU 2.82) performed by Reinaldo Norman MD at [facility] OR ??? PRO CYSTOSCOPY, REMV CALCULUS, SIMPLE N/A 09/02/2019 CYSTO, REMOVAL OF STENT, FOREIGN BODY OR CALCULUS, SIMPLE (WRVU 2.81) performed by Reinaldo Norman MD at [facility] OR ??? PRO CYSTOURETHROSCOPY, URETER CATHETER N/A 09/02/2019 CYSTO, RETROGRADE, URETEROPYELOGRAPHY (WRVU 2.37) performed by Reinaldo Norman MD at [facility] Physical Examination: There were no vitals taken for this visit. Physical Exam Neurological: Mental Status: She is oriented to person, place, and time. Psychiatric: Mood and Affect: Mood normal. Behavior: Behavior normal. Impression/Recommendations : Francisca Kong is a [...] her medical choices given how easy she reports she gets ill I do not think it wouldbe ly to place her on rheumatic medications at this time especially Biologics given her reported history of sepsis. We will see her again in follow-up in 6 months otherwise sooner for any changes patient in agreement with this plan. documented in this encounter Plan of Treatment Upcoming Encounters Date Type Specialty Care Team Description 02/26/2023 Office Visit Rheumatology Toño Rodriguez PA [facility] [place] [place] [place] [address] (Wo rk) documented as of this encounter Goals Goal Patient Goal Associated Recent Patient-Stated? Author Type Problems Progress DH Home Medication Patient No Asya moralez, Compliance and Facing Rachael Resendiz, Understanding Action Plan [facility] Note: Formatting of this note might be [...] reflux disease, unspeci fied whether esophagitis present documented in this encounter Care Teams Under Trimmer Relationship Specialty Start Date End Date Terri Bowser MD PCP - General Family Medicine 07/02/17 [address] [place] [address] documented as of this encounter
--- OUTSIDE RECORDS SUMMARY | 2022-07-08 09:31 | XMS_ITS | Encounter Summary ---
:1945 Author Organization [facility] [place] [address] Care Team Providers Name Role Phone Terri Bowser MD Primary Care Provider Encounter Details Date Type Department Care Team Description 05/29/2021 Telephone Urology at [facility] Buck Norman MD [facility] [place] [address] UROLOGY DEPT [phone] [place], [place] [address] (Wo rk) Social History Tobacco Use Types Packs/Day Years Used Date Former Smoker Cigarettes 2 10 Quit: 07/19/19 77 Smokeless Tobacco: Never Used Alcohol Use Standard Drinks/Week Comments No 0 (1 standard drink = 0.6 oz pure alcoho l) Sex Assigned at Date Recorded Not on file documented as of this encounter Miscellaneous Notes Telephone Encounter - Buck Norman MD - 05/29/2021 1:45 PM EDT I attempted to contact the patient to discuss the results of the recent CT scan. I left her a message with the results and recommended to schedule a renal u/s in 1 year. documented in this encounter Plan of Treatment Upcoming Encounters Date Type Specialty Care Team Description 02/26/2023 Office Visit Rheumatology Toño Rodriguez PA [facility] [address] MUNOZ [place], [place] [address] (Wo rk) documented as of this encounter Goals Goal Patient Goal Associated Recent Patient-Stated? Author Type Problems Progress Home Medication Patient No O'Rour ke, Compliance and Facing Rachael Resendiz, Understanding Action Plan [facility] Note: Formatting of this note might be d ifferent from the original. Patient's goal is to decrease pain by 50 % over the next 6 months (current pain 7 out of 10, would like to get down to 3) documented as of this encounter Results US Retroperitoneal Complete (05/19/2022 [...] of this patient. If you are a [facility] er and have any questions regarding this report, please contact the number above. For patients who have ques tions, please contact the [facility] that requested your imaging first. ?Get Agustin, Staff Physician Electronically Signed Final Report ?? 11:39 am Narrative 05/19/2022 11:40 AM EDT Renal ? (Signed Final 05/19/2022 11:39 am) PATIENT INFO: ID #: ? [id number] ?: ??[birth year] (77 yrs)(F) Name: ? GALE NUNEZ ? Visit Date: 05/19/2022 10:40 am PERFORMED BY: Performed By: ? Venu Petit RDMS Attending: ?Vamsi NANCE, Odessa mendez Referred By: ?BUCK NORMAN Location: ? [place] SERVICE(S) PROVIDED: URETRO - Retroperitoneal Complete - IMG [id number] ? [id number] INDICATIONS: renal cysts COMPARISON: CT 05/22/21 US [...] 11:39 am ) PATIENT INFO: ID #: [id number] : [birth year] (77 y rs)(F) Name: GALE NUNEZ Visit Date: 2021 10:40 am PERFORMED BY: Performed By: Allison Petit RDMS Attending: Get Agustin MD Referred By: BUCK NORMAN Location: [place] SERVICE(S) PROVIDED: URETRO - Retroperitoneal Complete - [facility] [id number] INDICATIONS: renal cysts COMPARISON: CT 05/22/21 US [...] of this patient. If you are a [facility] er and have any questions regarding this report, please contact the number above. For patients who have ques tions, please contact the [facility] professio nal that requested your imaging first. Get Agustin, Staff Physician Electronically Signed Final Report 05/19 11:39 am Buck Norman MD IMG GEN ORDERABLES documented in this encounter Visit Diagnoses Diagnosis Renal cyst, acquired Acquired cyst of kidney Renal cyst, acquired Acquired cyst of kidney documented in this encounter Care Teams Adjunct Faculty For Medical Terminology Relationship Specialty Start Date End Date Terri Bowser MD PCP - General Family Medicine 07/02/17 [address] [place] [address] documented as of this encounter
--- OUTSIDE RECORDS SUMMARY | 2022-07-08 09:31 | XMS_ITS | Encounter Summary ---
:1945 Author Organization [facility] [place] [address] Care Team Providers Name Role Phone Terri Bowser MD Primary Care Provider Reason for Referral Diagnostic Test (Routine) - Authorized Specialty Diagnoses / Procedures Referred By Contact Refer red To Contact Radiology Diagnoses Hematuria, unspecified type Reinaldo Norman MD Procedures CT Abdomen & Pelvis wo Contrast [facility] [place] [address] Referral ID Status Reason Start Expiration Visits Visits Date Date Requested Authorized [id number] Authorized Specialty 05/22/2021 11/22/2022 1 1 Service Requested Encounter Details Date Type Department Care Team Description 05/22/2021 Orders Only Urology at [facility] Reinaldo Norman Hematuria, unspecified [facility] [place] [address] UROLOGY DEPT [place], [place] [address] Social History Tobacco Use Types [...] Description 02/26/2023 Office Visit Rheumatology Toño Rodriguez, AISHA [facility] RHEUMATOLOGY [place], [place] [address] (Wo rk) Scheduled Orders Name Type Priority Associated Diagnoses Order S chedule CT Abdomen & Pelvis wo Imaging Routine Hematuria, unspeci fied Expected: 05/22/2021 Contrast type (Approximate), Expires: 2021 documented as of this encounter Goals Goal Patient Goal Associated Recent Patient-Stated? Author Type Problems Progress DH Home Medication Patient No O'Rour ke, Compliance and Facing Rachael Resendiz, Understanding Action Plan [facility] Note: Formatting of this note might be d ifferent from the original. Patient's goal is to decrease pain by 50 % over the next 6 months (current pain 7 out of 10, would like to get down to 3) documented as of this encounter Visit Diagnoses Diagnosis Hematuria, unspecified type documented in this encounter Care Teams Sod Stripper Relationship Specialty Start Date End Date Terri Bowser MD PCP - General Family Medicine 07/02/17 [address] [place] [address] documented as of this encounter
--- OUTSIDE RECORDS SUMMARY | 2022-07-08 09:32 | XMS_ITS | Encounter Summary ---
:1945 Author Organization [facility] [place] [address] Care Team Providers Name Role Phone Terri Bowser MD Primary Care Provider Encounter Details Date Type Department Care Team Description 06/22/2020 Orders Only Nephrology Boni Hunt, Recurrent nephrolithiasis [facility] (Primary Dx) [facility] [address] NEPHROLOGY DEPT. [phone] [place], [place] [address] Social History Tobacco Use Types [...] Visit Rheumatology Toño Rodriguez PA [facility] DR MUNOZ [place], [place] [address] (Wo rk) documented as of this encounter Goals Goal Patient Goal Associated Recent Patient-Stated? Author Type Problems Progress Home Medication Patient No Dario'Errol moralez, Compliance and Facing Rachael Resendiz, Understanding Action Plan [facility] Note: Formatting of this note might be d ifferent from the original. Patient's goal is to decrease pain by 50 % over the next 6 months (current pain 7 out of 10, would like to get down to 3) documented as of this encounter Visit Diagnoses Diagnosis Recurrent nephrolithiasis - Primary Calculus of kidney documented in this encounter Care Teams Photogrammetric Surveyor Relationship Specialty Start Date End Date Terri Bowser MD PCP - General Family Medicine 07/02/17 [address] [place] [address] documented as of this encounter
--- OUTSIDE RECORDS SUMMARY | 2022-07-08 09:32 | XMS_ITS | Encounter Summary ---
:1945 Author Organization [facility] [place] [address] Care Team Providers Name Role Phone Terri Bowser MD Primary Care Provider Encounter Details Date Type Department Care Team Description 03/28/2020 Orders Only Medical Genetics at [facility], Carlene Estrada, [facility] Vision loss [facility] DR Irlanda Milian [place] [address] [place] [address] [phone] (Wo rk) Social History Tobacco Use Types [...] 02/26/2023 Office Visit Rheumatology Toño Rodriguez PA [facility] DR MUNOZ [place], [place] [address] (Wo rk) documented as of [...] as of this encounter Visit Diagnoses Diagnosis Vision loss Unspecified visual loss documented in this encounter Care Teams Unit Support Representative Relationship Specialty Start Date End Date Terri Bowser MD PCP - General Family Medicine 07/02/17 [address] [place] [address] documented as of this encounter
--- OUTSIDE RECORDS SUMMARY | 2022-07-08 09:32 | XMS_ITS | Encounter Summary ---
:1945 Author Organization [facility] [place] [address] Care Team Providers Name Role Phone Terri Bowser MD Primary Care Provider Encounter Details Date Type Department Care Team Description 08/09/2019 Office Visit Same Day at [facility] Calculus of kidney with [facility] Jade [place]ij[place] [address] Social History Tobacco Use Types Packs/Day [...] Office Visit Rheumatology Toño Rodriguez PA [facility] [address] MUNOZ [place], [place] [address] (Wo rk) documented as of this encounter Goals Goal Patient Goal Associated Recent Patient-Stated? Author Type Problems Progress Home Medication Patient No O'Rour ke, Compliance and Facing Rachael Resendiz, Understanding Action Plan [facility] Note: Formatting of this note might be d ifferent from the original. Patient's goal is to decrease pain by 50 % over the next 6 months (current pain 7 out of 10, would like to get down to 3) documented as of this encounter Procedures Procedure Name Priority Date/Time Associated Diagnosis Comme nts URINE CULTURE Routine 08/09/2019 1:45 PM Calculus of kidney Results for this EDT with calculus of procedure a re in ureter the results section. documented in this encounter Results Urine culture Clean Catch Urine (08/09/2019 1:45 PM EDT) [facility] Method Time Signature Urine Culture No growth ALEIDA TERRELL (Less than [facility] 1,000 [facility] cfu/ml). LABORATORY Specimen (Source) Anatomical Collection Method Collection Time Re ceived Time Location / / Volume Laterality Urine specimen 08/09/2019 1:45 08/09/2019 2:04 obtained by clean PM EDT PM EDT catch procedure (specimen) Resulting Agency Comment Spec In Lab Lupillo Bhatia MD MICROBIOLOGY - GENERAL ORDER KEKE Performing Organization Address City/State/[place] [address] documented in this encounter Visit Diagnoses Diagnosis Calculus of kidney with calculus of uret er Calculus of kidney documented in this encounter Care Teams Administrative Services Coordinator Relationship Specialty Start Date End Date Terri Bowser MD PCP - General Family Medicine 07/02/17 [address] [place] [address] documented as of this encounter
--- OUTSIDE RECORDS SUMMARY | 2022-07-08 09:32 | XMS_ITS | Encounter Summary ---
:1945 Author Organization [facility] [place] [address] Care Team Providers Name Role Phone Terri Bowser MD Primary Care Provider Encounter Details Date Type Department Care Team Description 06/22/2020 Telephone Nephrology Hypertension at Boni Olson MD [facility] Jade mij[place] [address] [place] [address] [phone] (Wo rk) Social History Tobacco Use Types Packs/Day Years Used Date Former Smoker Cigarettes 2 10 Quit: 07/19/19 79 Smokeless Tobacco: Never Used Alcohol Use Standard Drinks/Week Comments No 0 (1 standard drink = 0.6 oz pure alcoho l) Sex Assigned at Date Recorded Not on file documented as of this encounter Miscellaneous Notes Telephone Encounter - Shirley Grullon LPN - 06/22/2020 1:45 PM EDT See message below. I spoke to patient and faxed the requested lab orders to [facility], Per request Addy. Patient reports holding off on taking bicitra Xs 3 days, and her urine pH has been around 7. This information was relayed to Dr Hunt. ----- Message from Boni Hunt MD sent at 06/22/2020 1:39 PM EDT ----- If you get ahold of her, please find out where she likes to get labs done. I've ordered a UA and BMPso we can see if she's getting too much K or too much citrate. ----- Message ----- From: Shirley Grullon LPN Sent: 06/21/2020 11:42 AM EDT To: Boni Hunt MD Per phone message, patient takes bicitra 15mls, three times daily, and has called to report that herurine pH has consistently been 8 or 9. In her message to me she reported that Dr Ortiz has her takingPotassium citrate 2 tabs, twice daily. In your note and Dr Ortiz note it states she reports only taking one tab twice daily. I tried to call her to question her about what she is actually taking, but was not able to reach her. I will try again later. Also, she reported in her phone message that with her cardiac history, she is worried about all the potassium. So, I will try to reach her this afternoon to get her actual medication list. documented in this encounter Plan of Treatment Upcoming Encounters Date Type Specialty Care Team Description 02/26/2023 Office Visit Rheumatology Toño Rodriguez PA [facility] [address] MUNOZ [place], [place] [address] (Wo rk) documented as of this encounter Goals Goal Patient Goal Associated Recent Patient-Stated? Author Type Problems Progress DH Home Medication Patient No O'Dericr naomy, Compliance and Facing Rachael Resendiz, Understanding Action Plan [facility] Note: Formatting of this note might be d ifferent from the original. Patient's goal is to decrease pain by 50 % over the next 6 months (current pain 7 out of 10, would like to get down to 3) documented as of this encounter Visit Diagnoses Not on filedocumented in this encounter Care Teams Tire Recapping Machine Operator Relationship Specialty Start Date End Date Terri Bowser MD PCP - General Family Medicine 07/02/17 [address] [place] [address] documented as of this encounter
--- OUTSIDE RECORDS SUMMARY | 2022-07-08 09:32 | XMS_ITS | Encounter Summary ---
:1945 Author Organization [facility] [place] [address] Care Team Providers Name Role Phone Terri Bowser MD Primary Care Provider Encounter Details Date Type Department Care Team Description 09/02/2019 Hospital Encounter Same Day Program at [facility] Nephrolith[facility] Samanta Stoner MD [facility] [address] [facility] UROLOGY DEPT [place], [place] [id number] Social History Tobacco Use Types Packs/Day Years Used Date Former Smoker Cigarettes 2 10 Quit: 07/19/19 77 Smokeless Tobacco: Never Used Alcohol Use Standard Drinks/Week Comments No 0 (1 standard drink = 0.6 oz pure alcoho l) Sex Assigned at Date Recorded Not on file documented as of this encounter Last Filed Vital Signs Vital Sign Reading Time Taken Comments Blood Pressure 163/89 09/02/2019 11:30 AM EST Pulse 87 09/02/2019 7:16 AM EST Temperature 37.1 ??C (98.8 ??F) 09/02/2019 10:48 AM EST Respiratory Rate 16 09/02/2019 11:30 AM EST Oxygen Saturation 99% 09/02/2019 11:30 AM EST Inhaled Oxygen Concentration - - Weight 82.6 kg (182 lb) 09/02/2019 7:16 AM EST Height 157.5 cm (5' 2) 09/02/2019 7:16 AM EST Body Mass Index 33.29 09/02/2019 7:16 AM EST documented in this encounter Discharge Instructions Discharge InstructionsCassidy Arredondo RN - 09/02/2019 11:25 AM EST POST ANESTHESIA INSTRUCTIONS Go home, rest, use caution on stairs. Change positions slowly. Do not smoke if you are alone. Diet light to regular as tolerated today. If nausea occurs start with clear liquids and progress slowly. No driving, operating machinery, alcoholic beverages and no important decisions for 24 hours. Monitor IV site for signs and symptoms of infection: increasing redness, swelling, foul drainage, ifoccurs contact M.D. Patients who have had endotrachial tubes (this tube, used by anesthesia department, is passed down your throat after you are asleep, to ensure safe air passage during your operation). A sore throat is normal due to the tube. Cold liquids or soothing lozenges will help ease the discomfort. The generalized muscle aches are due to the medication given to you just before the tube is inserted. As the medication wears off, you may develop muscle soreness, which usually goes away in 12-24 hours. Patient InstructionsReDelfino santos MD - 09/02/2019 10:55 AM EST DISCHARGE INSTRUCTIONS CALL YOUR PHYSICIAN IF: ?? You have a fever greater than 101 degrees F within one month of your surgery. ?? You have diarrhea or vomiting for more than 24 hours, or stop having bowel movements or passing gas. ?? You have worsening pain, not controlled with your pain medication. ?? You are unable to urinate due to blood clots in your bladder. ?? You have any other acute change in your health status. MEDICATIONS For pain control: Take ibuprofen 600 mg every 8 hours as needed. Take acetaminophen (Tylenol) 500-1000 mg every 6 hours as needed. DRIVING RESTRICTIONS Do not operate a vehicle if you are too sore from surgery to enter or exit your vehicle comfortably,or if you are too sore to easily check your blind spot. ACTIVITIES No formal restrictions. Your activities may be determined by how well your tolerate the discomfort associated with your stent. Most patients experience some degree of discomfort, and this is normal. Symptoms include flank pain (increased during urination), frequency and urgency of urination, burning or pain in the bladder orurethra with urination, pelvic discomfort, and blood in the urine. To manage your stent symptoms, drink a minimum of 2 L of fluids daily and take acetaminophen or ibuprofen. DIET You may resume a regular diet. COMFORT Some patients experience irritation or discomfort associated with the stent. Take your medication asneeded and prescribed. Slowly decrease your use of pain medication as pain lessens. CONTACT INFORMATION To contact your provider or change your appointment, please call the Urology clinic at during business hours or during off-hours. FOLLOW-UP APPOINTMENT Future Appointments and Orders Future Appointments and Orders Future Appointments Provider Department Dept Phone 09/20/2019 8:15 AM Alisha Heredia APRN [place] [facility] [place]: [facility] 5C [phone] 10/26/2019 10:30 AM Evens Ortiz Jr., MD [place] at [facility] [place] at: Hardware Designer Area 5B [phone] 12/06/2019 1:00 PM Gldays Espinoza [facility] Genetics at [facility] [place]rive at: Hardware Designer Area 6M [phone] 05/10/2020 12:30 PM Josiah Weber MD; DILATION AND TEST, DM; TECH, DM Ophthalmology at [facility] [place]rive at: Hardware Designer Area 4B [phone] Future Orders Complete By Expires US Retroperitoneal Complete [[id number] Custom] 12/03/2019 (Approximate) 03/02/2020 Process Instructions: Scheduling Instructions: Questions: Where will study be performed?: [facility] Radiology Portable exam?: Ultrasound scheduling priority: E - coordinate with appointment or 2 weeks or more out Reason for exam and clinical history: Eval for hydronephrosis after stent pull appointment Other pertinent information: Stat read required?: Date of injury if applicable: Requested Time: You will return in 10 days for stent removal in the office. We will send you the date and time. You will also return in 8 weeks with a renal ultrasound. Please remember that you have a ureteral stent in place. A stent is not a permanent device and must be removed as instructed by your urologist; failure to remove a stent may result in the need for moreprocedures. documented in this encounter Medications at Time of Discharge Medication Sig Dispensed Refills Start Date End Date pantoprazole EC TAKE ONE TABLET BY 3 08/05/2019 (Protonix) 40 mg Tablet, MOUTH TWICE A DAY Delayed Release (E.C.) docusate sodium (COLACE) Take 100 mg by mouth 0 100 mg Capsule 2 times daily as needed. magnesium oxide (MAG-OX) Take 400 mg by mouth 0 400 mg (241.3 mg daily. magnesium) Tablet rosuvastatin (CRESTOR) 10 Take 10 mg by mouth 0 1 mg Tablet three times a week. levalbuterol (XOPENEX) Take 1 ampule by 0 0.31 mg/3 mL Solution for nebulization every 4 Nebulization hours as needed for Wheezing. NARCAN 4 mg/actuation 0 06/04/2017 Morrison, Non-Aerosol lidocaine (LIDODERM) 5 % Apply 1 patch onto 30 patch 3 Adhesive Patch, Medicated the skin daily. (leave on for 12 hours and remove for 12 hours) BD INSULIN PEN NEEDLE UF USE THREE TIMES A 3 03/19 SHORT 31 gauge x 5/16 DAY WITH HUMALOG Needle INSULIN nitroGLYcerin (NITROSTAT) as needed. 0 04/27/2017 0.4 mg Tablet, Sublingual BISAC-EVAC 10 mg USE ONE SUPPOSITORY 5 03/03/2017 Suppository RECTALLY DAILY NEEDED ONETOUCH ULTRA TEST Strip TEST FIVE TIMES A 3 DAY cholecalciferol, Vitamin Take by mouth daily. 0 D3, (VITAMIN D-3) 5,000 unit Tablet BD INSULIN PEN NEEDLE UF USE ONCE DAILY WITH 4 MINI 31 gauge x 3/16 LEVEMIR Needle calcium carbonate 648 mg Take 650 mg by mouth 0 calcium Tablet 3 times daily (with meals). fluticasone (FLONASE) 50 daily. 0 12/11/2015 mcg/actuation Morrison, Suspension polyethylene glycol Take 17 g by mouth 0 (MIRALAX) 17 gram Powder daily as needed. in Packet Insulin Lispro (HUMALOG Inject 2-22 Units 0 KWIKPEN) Insulin Pen subcutaneously 3 times daily as needed. meclizine (ANTIVERT) 12.5 Take 12.5 mg by 0 12/12 mg tablet mouth as needed. OXYcodone (ROXICODONE) 5 Take 5 mg by mouth 0 mg immediate release daily as needed. tablet ascorbic acid (VITAMIN C) Take 1,000 mg by 0 1,000 mg tablet mouth as needed. OMEGA-3S/DHA/EPA/FISH OIL Take 4,800 mg by 0 (OMEGA 3 ORAL) mouth 4 times daily. rosuvastatin (CRESTOR) 5 Take by mouth. 5 mg 0 mg tablet 4 times a week and 10mg 3 times a week digoxin (LANOXIN) 125 mcg Take 62.5 mcg by 0 tablet mouth daily. acetaminophen (TYLENOL Take 1,000 mg by 0 EXTRA STRENGTH) 500 mg mouth 3 times daily tablet as needed. Reported on 03/11/2017 verapamil (CALAN) 40 mg 40 mg, PO, Three 0 2009 tablet times daily Levalbuterol Tartrate 2 Puff(s), Inh, Q6H 0 10/04 (XOPENEX HFA) 45 mcg/Actuation inhaler UNABLE TO FIND Med Name: 0 019 Custom medication 1 each. 0 020 UNKNOWN TO 1 tablet 2 times 0 09/13/20 19 PATIENTIndications: daily. Indications: Probiotics Probiotics predniSONE (DELTASONE) 1 Take by mouth 9mg 150 tablet 1 05/2005/29/2020 mg Tablet per day and decrease by 1mg every 2 weeks until you are at 5mg daily. Take along with 5mg tablets to complete taper. adalimumab (HUMIRA,CF, Inject 0.4 mLs 2 kit 3 9 05/29/2020 PEN) 40 mg/0.4 mL Pen subcutaneously every Injector Kit 14 days. predniSONE (DELTASONE) 5 Take 2 tablets by 60 tablet 0 05/1909/13/2019 mg Tablet mouth daily. metFORMIN (GLUCOPHAGE) Take 500 mg by mouth 0 05/19/2022 500 mg Tablet daily. LEVEMIR FLEXTOUCH Insulin 12 Units daily. 12 07/0205/19/2022 Pen hydrochlorothiazide as needed. 0 04/04/201609/13 (HYDRODIURIL) 12.5 mg Tablet lisinopril Take 5 mg by mouth 0 10/31/20152021 (PRINIVIL;ZESTRIL) 10 mg daily. Tablet FLOVENT HFA 220 2 times daily. 0 12/11/201509/13 mcg/actuation HFA Aerosol Inhaler aspirin 325 mg tablet Take 81 mg by mouth 0 05/19/2022 daily. esomeprazole (NEXIUM) 40 Take 40 mg by mouth 0 09/13/2019 mg capsule 2 times daily. documented as of this encounter Progress Notes Cassidy Arredondo RN - 09/02/2019 11:52 AM EST Pt with blood glucose 211 after awakening post procedure. We discussed how to manage this for 3-4 hour trip home, as patient does not have her usual lispro available here. She decided it would be best to go home not treated, declined having me call MD for insulin, as she prefers to be high rather thanlow. Taking food and fluid without difficulty. Up to ambulate with cane and voided without difficulty. VSS. AVS reviewed with patient and daughter and SO, all questions answered. documented in this encounter H&P Notes Buck Norman MD - 09/01/2019 6:43 PM EST Urology PreOp H&P Gale Nunez 74 y.o. female emale with history of CAD (s/p PCI to LAD in 2007), HTN, KALEY, GERD, IBS, DM, nephrolithiasis, and Psoriatic Arthritis (on low dose prednisone and Humira) and recently diagnosed 1cm proximal left UPJ s/p stent placement who presents for left sided ureteroscopy w/ LL. No changes to medications, no fevers, chills, headaches, chest pain, new cough, nausea, emesis, constipation, diarrhea, difficulty urinating, one sided numbness or tingling sensation. Denies recent hospitalization. Lab Results Component Value Date URINECULTURE No growth (Less than 1,000 cfu/ml). 08/09/2019 Past Medical History: Diagnosis Date ??? Amblyopia OD ??? Anxiety ??? Arthritis rheumatoid, PMR ??? Asthma Calmed down now; was pretty bad. Fall and Summer are worst. ??? Cardiac disease CAD ??? Carpal tunnel syndrome ??? Cataract ??? Chronic pain Back and generalized. ??? COPD (chronic obstructive pulmonary disease) ??? CPAP (continuous positive airway pressure) dependence ??? Delayed emergence from anesthesia ??? Diabetes Type 2; A1c 7.6 ??? Diabetes mellitus 2006 ??? Difficult intubation Was told they had a problem intubating her. Unsure of reason but she has esophageal diverticulum. ??? Fatigue ??? Fibromyalgia ??? Gastroesophageal reflux Probiotics for GERD; was discontinued from Nexium due to kidney issues. ??? 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 ??? GERD (gastroesophageal reflux disease) ??? Heart valve disease ??? High blood pressure Well controlled on medication. ??? Hyperlipidemia ??? Hypertension ??? Irregular heart beat SVT; was converted weekly x 10 years ??? Kidney failure [facility] admission for L kidney failure; stent placed at 07/21/2019 ??? Mental health problem ADHD; no meds for this. ??? Motion sickness ??? Myocardial infarction Stent placed LAD ??? Nerve entrapment 02/09/2013 ??? Neuromuscular disease Fibromyalgia ??? Obstructive sleep apnea BiPap ??? Osteoporosis ??? Psoriatic arthritis ??? PTSD (post-traumatic stress disorder) ??? Senile macular degeneration OU ??? Ulcer Remote Hx Past Surgical History: Procedure Laterality Date ??? CARDIAC SURGERY ??? CATARACT REMOVAL OU sx with IOL Dr Kauffman in [facility] ??? CORONARY ANGIOPLASTY WITH STENT PLACEMENT 2007 ??? INTRAVITREAL INJECTION Left 12/26/08 [facility] ??? INTRAVITREAL INJECTION Left 01/23/09 [facility] ??? INTRAVITREAL INJECTION Left 02/27/09 [facility] ??? PRO CYSTOSCOPY, INSERT URETERAL STENT Left 07/21/2019 CYSTO, STENT PLACEMENT (WRVU 2.82) performed by Lupillo Bhatia MD at [facility] OR No current facility-administered medications on file prior to encounter. Current Outpatient Medications on File Prior to Encounter Medication Sig Dispense Refill ??? predniSONE (DELTASONE) 1 mg Tablet Take by mouth 9mg per day and decrease by 1mg every 2 weeks until you are at 5mg daily. Take along with 5mg tablets to complete taper. 150 tablet 1 ??? magnesium oxide (MAG-OX) 400 mg (241.3 mg magnesium) Tablet Take 400 mg by mouth daily. ??? rosuvastatin (CRESTOR) 10 mg Tablet Take 10 mg by mouth three times a week. ??? cholecalciferol, Vitamin D3, (VITAMIN D-3) 5,000 unit Tablet Take by mouth daily. ??? LEVEMIR FLEXTOUCH Insulin Pen 4 Units 2 times daily. 12 ??? lisinopril (PRINIVIL;ZESTRIL) 10 mg Tablet Take 15 mg by mouth daily. ??? fluticasone (FLONASE) 50 mcg/actuation Morrison, Suspension daily. ??? Insulin Lispro (HUMALOG KWIKPEN) Insulin Pen Inject 2-8 Units subcutaneously 3 times daily as needed. ??? OXYcodone (ROXICODONE) 5 mg immediate release tablet Take 5 mg by mouth daily as needed. ??? ascorbic acid (VITAMIN C) 1,000 mg tablet Take 1,000 mg by mouth as needed. ??? aspirin 325 mg tablet Take 325 mg by mouth daily. ??? OMEGA-3S/DHA/EPA/FISH OIL (OMEGA 3 ORAL) Take 4,800 mg by mouth 4 times daily. ??? rosuvastatin (CRESTOR) 5 mg tablet Take by mouth. 5 mg 4 times a week and 10mg 3 times a week ??? digoxin (LANOXIN) 125 mcg tablet Take 62.5 mcg by mouth daily. ??? esomeprazole (NEXIUM) 40 mg capsule Take 40 mg by mouth 2 times daily. ??? acetaminophen (TYLENOL EXTRA STRENGTH) 500 mg tablet Take 1,000 mg by mouth 3 times daily as needed. Reported on 03/11/2017 ??? verapamil (CALAN) 40 mg tablet 40 mg, PO, Three times daily (Patient taking differently: 40 mg, PO, Three times daily, and 1 additional if needed) ??? adalimumab (HUMIRA,CF, PEN) 40 mg/0.4 mL Pen Injector Kit Inject 0.4 mLs subcutaneously every 14days. 2 kit 3 ??? predniSONE (DELTASONE) 5 mg Tablet Take 2 tablets by mouth daily. 60 tablet 0 ??? metFORMIN (GLUCOPHAGE) 500 mg Tablet Take 500 mg by mouth daily. ??? levalbuterol (XOPENEX) 0.31 mg/3 mL Solution for Nebulization Take 1 ampule by nebulization every 4 hours as needed for Wheezing. ??? NARCAN 4 mg/actuation Morrison, Non-Aerosol ??? lidocaine (LIDODERM) 5 % Adhesive [...] ONE SUPPOSITORY RECTALLY DAILY NEEDED 5 ??? RVXTOUCH ULTRA TEST Strip TEST FIVE TIMES A DAY 3 ??? BD INSULIN PEN NEEDLE UF MINI 31 gauge x 3/16 Needle USE ONCE DAILY WITH LEVEMIR 4 ??? calcium carbonate 648 mg calcium Tablet Take 650 mg by mouth 3 times daily (with meals). ??? hydrochlorothiazide (HYDRODIURIL) 12.5 mg Tablet as needed. ??? FLOVENT HFA 220 mcg/actuation HFA Aerosol Inhaler 2 times daily. ??? polyethylene glycol (MIRALAX) 17 gram Powder in Packet Take 17 g by mouth daily. ??? meclizine (ANTIVERT) 12.5 mg tablet Take 12.5 mg by mouth as needed. ??? Levalbuterol Tartrate (XOPENEX HFA) 45 mcg/Actuation inhaler 2 Puff(s), Inh, Q6H Allergies Allergen Reactions ??? Albuterol Other (See Comments) SVT ??? Anesthetics - Amide Type Shortness Of Breath ??? Anesthetics - Marlyn Type- Parabens Shortness Of Breath ??? Citalopram Hydrobromide Shortness Of Breath ??? Clindamycin Anaphylaxis ??? Codeine Phosphate Palpitations ??? Dye ??? Epinephrine Palpitations ??? Escitalopram Oxalate Shortness Of Breath ??? Fluoxetine Hcl Shortness Of Breath and Palpitations ??? Lidocaine Palpitations LIdocaine with epinephrine ??? Methotrexate Other (See Comments) dyspnea ??? Other [Unclassified Drug] Anaphylaxis All Antihistamines. Allcontrast dyes -- ??? Penicillins Shortness Of Breath and Rash ??? Sulfa (Sulfonamide Antibiotics) Hives ??? Iodine And Iodide Containing Products Rash ??? Nsaids (Non-Steroidal Anti-Inflammatory Drug) Palpitations and Other (See Comments) Hypertension ??? Beta-Blockers (Beta-Adrenergic Blocking Agts) ??? Ether Hives ??? Histamine Palpitations SVT's ??? Montelukast Sodium Diarrhea and Nausea And Vomiting ??? Morphine Sulfate Pt requests no morphine. There were no vitals filed for this visit. Exam: General: Alert and oriented x4 Heart: RRR Lungs: No audible wheezing Abdomen: Soft, non-tender/distended Extremities: Warm, no edema No results found for this or any previous visit (from the past 24 hour(s)). Assessment/Plan Proceed with scheduled procedure Procedure(s): CYSTO, RETROGRADE, URETEROPYELOGRAPHY (WRVU 2.37) CYSTO, REMOVAL OF STENT, FOREIGN BODY OR CALCULUS, SIMPLE (WRVU 2.81) CYSTO, STENT PLACEMENT (WRVU 2.82) CYSTOURETEROSCOPY,DIAGNOSTIC,W/ LITHOTRIPSY INC. INSERTION OF INDWELLING URETERAL STENT (WRVU 8) MODIFIER HOLMIUM LASER documented in this encounter Miscellaneous Notes Op Note - Delfino Tabor MD - 09/02/2019 11:18 AM EST Operative Note ?? Patient Name: Gale Nunez : [id number] MR#: [id number] ?? Case Date: 09/02/2019 ?? Surgeon: Surgeon(s) and Role: * Buck Norman MD - Primary * Delfino Tabor MD - Resident ?? Preoperative diagnosis: LEFT URETERAL STONE ?? Postoperative diagnosis: LEFT URETERAL STONE ?? Procedure(s): CYSTO, RETROGRADE, URETEROPYELOGRAPHY (WRVU 2.37) CYSTO, REMOVAL OF STENT, FOREIGN BODY OR CALCULUS, SIMPLE (WRVU 2.81) CYSTO, STENT PLACEMENT (WRVU 2.82) CYSTOURETEROSCOPY,DIAGNOSTIC,W/ LITHOTRIPSY INC. INSERTION OF INDWELLING URETERAL STENT (WRVU 8) MODIFIER HOLMIUM LASER ?? Anesthesia: General ?? Findings: 1cm distal left ureteral stone; fragmented with laser and removed with basket Left retrograde pyelogram without additional filling defects Placement of 6Fr x 24cm JJ stent in left UO ?? Complications: None ?? Estimated Blood Loss: 5cc ?? Specimens removed during surgery: * No orders in the log * ?? Fluids: Intraprocedure Crystalloid Total None ?? Fluids: ANES IntraOp Crystalloid (Filter: (AN Fluids) Medications Shown) ?? Medication Calculated Total ?? No medications were administered. ? Blood: none ?? Urine Output: (no urine output recorded) ?? Drains: 6Fr x 24cm JJ stent in Left UO ?? Disposition: awakened from anesthesia, extubated and taken to the recovery room in a stable condition, having suffered no apparent untoward event. ?? Condition: doing well without problems ?? (Please see the Surgical Encounter Summary for any Implant and Specimen details pertinent to this patient.) ?? Infection Bundle used? No ? ANES IntraOp Crystalloid (Filter: (AN Fluids) Medications Shown) ?? Medication Calculated Total ?? No medications were administered. ?? HPI: Gale Nunez 74 y.o. female emale??with??history of CAD (s/p PCI to LAD in 2007), HTN, KALEY, GERD, IBS, DM, nephrolithiasis, and Psoriatic Arthritis (on low dose prednisone and Humira) and recently diagnosed??1cm proximal left??UPJ??s/p stent placement who presents for left sided ureteroscopy w/LL. ?? Procedure Description: The patient was identified in the pre-operative holding area. Consent was verified. The correct side of the procedure was marked. The patient was taken to the operating room and placed supine on the operating table. General anesthesia was induced. The patient was then moved to the dorsal lithotomy position and prepped and draped in the usual sterile fashion. A timeout was performed involving all members of the OR team confirming the patient's identity and planned procedure. Preoperative antibiotics were administered. A 22 Fr rigid cystoscope was inserted into the bladder. The existing left ureteral stent was visualized. A stent grasper was used to grasp the stent and deliver it to the urethral meatus. A glide wire was then passed through the stent and up into the left renal pelvis as visualized on fluoroscopy. Thestent was then removed. The cystoscope was then removed. A semi-rigid ureteroscope was inserted. A second glide wire was needed to to get the scope into the left UO. Rigid ureteroscopy was performed, and the stone was identified in the distal leftureter. [id number] micron laser fiber was then inserted through the rigid scope. With settings of 6 Joules and 6-8 Hertz, the stone was fragmented into very small pieces. The pieces were extracted via basket or flushed out. The ureteroscope was removed after the entire ureter was inspected and found to be free of stone. There was significant edema of the entire ureter, but there was no overt injuries identified. A retrograde pyelogram was performed and showed no filing defects in the kidney. The cystoscope was loaded onto the guide wire using a stent pusher. The stent pusher was removed chetan 6 Fr by 24 cm double-J stent was passed over the wire. The proximal coil was visualized on fluoroscopy to be within the renal pelvis, and the distal coil was seen with direct visualization in the bladder. The bladder was emptied. The stone fragments were removed. The cystoscope was removed. The patient tolerated the procedure well and was awakened from anesthesia with no adverse events. The patient was taken to the recovery area in stable condition. Dr. Norman, the attending surgeon, was present for the entire procedure. Associated attestation - Buck Norman MD - 09/02/2019 11:21 AM EST Attestation: Case Date: 09/02/2019 I was present and I participated during the entire procedure (does not need to include opening and closing). BUCK NORMAN MD 09/02/2019 Brief Op Note - Delfino Tabor MD - 09/02/2019 10:51 AM EST Brief Operative Note Patient Name: Gale Nunez : [id number] MR#: [id number] Case Date: 09/02/2019 Surgeon: Surgeon(s) and Role: * Buck Norman MD - Primary * Delfino Tabor MD - Resident Preoperative diagnosis: LEFT URETERAL STONE Postoperative diagnosis: LEFT URETERAL STONE Procedure(s): CYSTO, RETROGRADE, URETEROPYELOGRAPHY (WRVU 2.37) CYSTO, REMOVAL OF STENT, FOREIGN BODY OR CALCULUS, SIMPLE (WRVU 2.81) CYSTO, STENT PLACEMENT (WRVU 2.82) CYSTOURETEROSCOPY,DIAGNOSTIC,W/ LITHOTRIPSY INC. INSERTION OF INDWELLING URETERAL STENT (WRVU 8) MODIFIER HOLMIUM LASER Anesthesia: General Findings: 1cm distal left ureteral stone; fragmented with laser and removed with basket Left retrograde pyelogram without additional filling defects Placement of 6Fr x 24cm JJ stent in left UO Complications: None Estimated Blood Loss: 5cc Specimens removed during surgery: * No orders in the log * Fluids: Intraprocedure Crystalloid Total None Fluids: ANES IntraOp Crystalloid (Filter: (AN Fluids) Medications Shown) Medication Calculated Total No medications were administered. Blood: none Urine Output: (no urine output recorded) Drains: 6Fr x 24cm JJ stent in Left UO Disposition: awakened from anesthesia, extubated and taken to the recovery room in a stable condition, having suffered no apparent untoward event. Condition: doing well without problems (Please see the Surgical Encounter Summary for any Implant and Specimen details pertinent to this patient.) Infection Bundle used? No ANES IntraOp Crystalloid (Filter: (AN Fluids) Medications Shown) Medication Calculated Total No medications were administered. Associated attestation - Buck Norman MD - 09/02/2019 10:56 AM EST I was the attending physician supervising the resident in the above care and I was present with the resident for the entire procedure. documented in this encounter Plan of Treatment Upcoming Encounters Date Type Specialty Care Team Description 02/26/2023 Office Visit Rheumatology Slavich, Toño J, PA [facility]UMATOLOGY [place], [place] [address] (Wo rk) documented as of this encounter Goals Goal Patient Goal Associated Recent Patient-Stated? Author Type Problems Progress DH Home Medication Patient No O'Rour ke, Compliance and Facing Rachael Resendiz, Understanding Action Plan [facility] Note: Formatting of this note might be d ifferent from the original. Patient's goal is to decrease pain by 50 % over the next 6 months (current pain 7 out of 10, would like to get down to 3) documented as of this encounter Procedures Procedure Name Priority Date/Time Associated Comments Diagnosis POCT GLUCOSE Routine 09/02/2019 11:15 Results for this AM EST procedure are i n the results section. XR FLUORO NO RAD <1HR - OR Routine 09/02/2019 10:45 Results for this USE AM EST procedure are i n the results section. [facility] KIDNEY STONE Routine 09/02/2019 10:40 Resu lts for this ANALYSIS AM EST procedure are i n the results section. POCT GLUCOSE Routine 09/02/2019 10:08 Results for this AM EST procedure are i n the results section. MODIFIER HOLMIUM LASER Yes 09/02/2019 8:33 LEFT URETERAL AM EST STONE CYSTOURETEROSCOPY,DIAGNOST Yes 09/02/2019 8:33 LEFT URETER AL IC,W/ LITHOTRIPSY INC. AM EST STONE INSERTION OF INDWELLING URETERAL STENT (WRVU 8) CYSTO, STENT PLACEMENT Yes 09/02/2019 8:33 LEFT URETERAL (WRVU 2.82) AM EST STONE CYSTO, REMOVAL OF STENT, Yes 09/02/2019 8:33 LEFT URETERAL FOREIGN BODY OR CALCULUS, AM EST STONE SIMPLE (WRVU 2.81) CYSTO, RETROGRADE, Yes 09/02/2019 8:33 LEFT URETERAL URETEROPYELOGRAPHY (WRVU AM EST STONE 2.37) POCT GLUCOSE Routine 09/02/2019 7:56 Results for this AM EST procedure are i n the results section. documented in this encounter Results US Retroperitoneal Complete (11/08/2019 2:14 PM EST) Anatomical Region Laterality Modality Abdomen Ultrasound Specimen (Source) Anatomical Collection Method Collection Time Re ceived Time Location / / Volume Laterality 11/08/2019 2:14 PM EST Impressions 11/08/2019 2:41 PM EST ?? 2 new LEFT renal calculi since patie nt's CT scan from 07/01/2019. The largest is in the lower pole and measures 13 mm. No hydronephrosis 2 complex cysts in the RIGHT kidney. Th ere is a 6 cm cyst with thick septations and some calcifications on the septatio ns although no vascularity in the lower pole and a 1.6 cm multiloculated cyst i n the upper pole. Follow-up imaging of these cysts in 6 months is recommended. No right- sided calculi Thank you for letting us participate in the care of this patient. For questions regarding this report, please contact t he number below. 2: 33 PM ? Aranza Pizano, Staff Physician Electronically Signed Final Report ?? 02:40 pm Narrative 11/08/2019 2:41 PM EST Renal ?(Signed Final 11/08/2019 02:40 pm) PATIENT INFO: ID #: ? [id number] ?: ??[birth year] (74 yrs) Name: ? GALE NUNEZ ? Visit Date: 11/08/2019 02:14 pm PERFORMED BY: Performed By: ? Néstor Hay RDMS Attending: ?Harinder NANCE, Aranza Ontiveros Referred By: ?BUCK NORMAN Location: ? [place] SERVICE(S) PROVIDED: ??URETRO - Retroperitoneal Complete - I [id number] ? [id number] INDICATIONS: ??Eval for hydronephrosis after stent p ull ??appointment COMPARISON: CT scan: AB PEL 07/18/19 RIGHT KIDNEY: Size (cm) ?L: ??14.3 Cortical Thickness: ?Normal Cortical Echogenicity: ?? Normal Hydronephrosis: ?No sonogr aphic evidence Comment: ?Multiple cysts seen large st seen in the inf. pole, ? complex multisepatted avascular measuring 5.7 x ? 6.1 x 5.3 cm. No tim l calculi seen. LEFT KIDNEY: Size (cm) ?L: ??11.1 Cortical Thickness: ?Normal Cortical Echogenicity: ?? Normal Hydronephrosis: ?No sonogr aphic evidence Comment: ?Two nonobstructing renal calculi seen largest seen ? in the inf pole measu ring 13 mm. URINARY BLADDER: Pre-void (cm) ? L: ??5.0 ? A P: ??7.3 ? TV: ??7.1 Vol (ml): ?135.7 Comment: ?Partially distended, norm al contour Procedure Note Aranza Pizano MD - 11/08/2019Formattin g of this note might be different from the original. Renal (Signed Final 11/08/2019 02:40 pm ) PATIENT INFO: ID #: [id number] : [birth year] (74 y rs) Name: GALE NUNEZ Visit Date: 2019 02:14 pm PERFORMED BY: Performed By: Néstor Hay RDMS Attending: Aranza Pizano MD Referred By: BUCK NORMAN Location: [place] SERVICE(S) PROVIDED: URETRO - Retroperitoneal Complete - [id number] INDICATIONS: Eval for hydronephrosis after stent pul l appointment COMPARISON: CT scan: AB PEL 07/18/19 RIGHT KIDNEY: Size (cm) L: 14.3 Cortical Thickness: Normal Cortical Echogenicity: Normal Hydronephrosis: No sonographic evidence Comment: Multiple cysts seen largest se en in the inf. pole, complex multisepatted avascular measuri ng 5.7 x 6.1 x 5.3 cm. No renal calculi seen. LEFT KIDNEY: Size (cm) L: 11.1 Cortical Thickness: Normal Cortical Echogenicity: Normal Hydronephrosis: No sonographic evidence Comment: Two nonobstructing renal calcu li seen largest seen in the inf pole measuring 13 mm. URINARY BLADDER: Pre-void (cm) L: 5.0 AP: 7.3 TV: 7.1 Vol (ml): 135.7 Comment: Partially distended, normal co ntour IMPRESSION 2 new LEFT renal calculi since patient' s CT scan from 07/01/2019. The largest is in the lower pole and measures 13 mm. No hydronephrosis 2 complex cysts in the RIGHT kidney. Th ere is a 6 cm cyst with thick septations and some calcifications on the septatio ns although no vascularity in the lower pole and a 1.6 cm multiloculated cyst i n the upper pole. Follow-up imaging of these cysts in 6 months is recommended. No right- sided calculi Thank you for letting us participate in the care of this patient. For questions regarding this report, please contact t carolyn number below. Electronically signed by: Aranza Pizano [facility] [place] ([phone]), at 11/08/2019 2: 33 PM Aranza Pizano, Staff Physician Electronically Signed Final Report 11/08 02:40 pm Buck Norman MD IMG US GEN ORDERABLES (ABNORMAL) POCT Glucose (09/02/2019 11:15 AM EST) P athologist Signature POC Glucose 211 (H) 65 - 199 [facility] mg/dL [facility] Comment: Supplemental ranges: <140 mg/dL before meals <180 mg/dL all other times of the day Specimen Anatomical Collection Method Collection Time Receive d Time (Source) Location / / Volume Laterality Blood specimen 09/02/2019 11:15 9 (specimen) AM EST 11:15 AM EST Buck Norman MD POINT OF CARE TEST ORDERABLE S Performing Organization Address City/State/[place] [address] XR Fluoro No Rad <1Hr - OR Use (09/02/2019 10:45 AM EST) Specimen (Source) Anatomical Location Collection Method / Collectio n Time Received Time / Laterality Volume Narrative RAD - 09/02/2019 10:45 AM EST This exam is auto-finalizing. No interpr etation was done. Buck Norman MD IMG FLUORO ORDERABLES Performing Organization Address City/State/ZIP Code Phon e Number RAD RAD [place], [place] Kidney Stone Analysis (09/02/2019 10:40 AM EST) [facility] Method Time Signature Kidney Stone [facility] Analysis Test ?Result ? Flag ??Unit ??RefValue [facility] Kidney Stone Analysis [facility] ??Source: ? Left [facility] LABORATORY ??Interpretation ?100% Uric acid ?Test Performed by: ?[facility] ?[address] [id number] ?Telecasting Technician: Charles Garay M.D. Ph.D.; CLIA# [id number] Specimen Anatomical Collection Method Collection Time Receive d Time (Source) Location / / Volume Laterality Calculus 09/02/2019 10:40 09/02/2019 4:30 specimen AM EST PM EST (specimen) Resulting Agency Comment Spec In Lab Buck Norman MD BODY FLUIDS AND STOOLS ORDER KEKE Performing Organization Address City/State/ZIP Code Phon [place] [address] (ABNORMAL) POCT Glucose (09/02/2019 10:08 AM EST) P athologist Signature POC Glucose 201 (H) 65 - 199 [facility] mg/dL [facility] Comment: Supplemental ranges: <140 mg/dL before meals <180 mg/dL all other times of the day Specimen Anatomical Collection Method Collection Time Receive d Time (Source) Location / / Volume Laterality Blood specimen 09/02/2019 10:08 9 (specimen) AM EST 10:08 AM EST Buck Norman MD POINT OF CARE TEST ORDERABLE S Performing Organization Address City/State/[place] [address] POCT Glucose (09/02/2019 7:56 AM EST) athologist Signature POC Glucose 165 65 - 199 [facility] mg[facility]dL [facility] Comment: Supplemental ranges: <140 mg/dL before meals <180 mg/dL all other times of the day Specimen Anatomical Collection Method Collection Time Receive d Time (Source) Location / / Volume Laterality Blood specimen 09/02/2019 7:56 AM 019 7:56 (specimen) EST AM EST Buck Norman MD POINT OF CARE TEST ORDERABLE S Performing Organization Address City/State/[place] [address] documented in this encounter Visit Diagnoses Diagnosis Nephrolithiasis Calculus of kidney Nephrolithiasis Calculus of kidney documented in this encounter Administered Medications Inactive Administered Medications - up to 3 most recent administrations Medication Order MAR Action Action Date Dose Rate Site fentaNYL (PF) 50mcg/mL injection 25-50 mcg, Intravenous, EVERY 5 MIN PRN, Starting on Thu09/02/19 at 1051, Until Thu09/02/19 at 1220, Pain, Give 25 mcg every 5 minutes PRN for mild to moderate pain (1-5) Give 50 mcg every 5 minutes P RN for moderate to severe pain (6-10). Hold for respiratory rate less than 10 per mi nute. Maximum dose 250 mcg over one hour. If ordered with hydromorphone or morphin e, give hydromorphone or morphine first and use fentanyl for breakthrough pain., PACU Recovery, Ro utine lactated ringers infusion New Bag 09/02/2019 8:11 AM EST 1,000 mLs 100 mL/hr 1,000 mL, at 100 mL/hr, Intravenous, CONTINUOUS, Starting on Thu09/02/19 at 0800, Until Thu09/02/19 at 1220, Day of Surgery (Day of Procedure) lidocaine (XYLOCAINE) 10 mg/mL (1 %) injection Given 1 11/02/2018 8:00 AM EST 3 mg 3 mg 3 mg (0.3 mL), Subcutaneous, ONCE PRN, 1 dose, Starting on Thu09/02/19 at 0743, Until Thu09/02/19 at 0800, for discomfort with PIV insertion, Day of Surgery (Day of Procedure), Routine naloxone (NARCAN) injection 0.04 mg 0.04 mg, Intravenous, EVERY 5 MIN PRN, S tarting on Thu09/02/19 at 1051, Until Thu09/02/19 at 1220, Opioid Reversal, for respiratory rat e less than 6 or unresponsive., May repeat every 5 minutes to increase respiratory rate. DO NOT exceed 0.12 mg total dose. Notify anesthesia immediate ly if administered., PACU Recovery, Routine ondansetron (ZOFRAN) injection 4 mg 4 mg, Intravenous, EVERY 30 MIN PRN, Sta rting on Thu09/02/19 at 1051, Until Thu09/02/19 at 1220, Nausea, May repeat 4 mg once in 30 m inutes. If multiple antiemetics ordered, use ondansetron fir st and if ineffective use prochlorperazine second and if ineffective use promethazine, PACU Recov yaniv prochlorperazine (COMPAZINE) injection 5 mg 5 mg, Intravenous, EVERY 30 MIN PRN, 2 doses, Starting on Thu09/02/19 at 1051, Until Thu09/02/19 at 1220, Nausea, May repeat 5 mg on ce in 30 minutes. If multiple antiemetics ordered, use ondansetron first an d if ineffective use prochlorperazine second and if ineffecti ve use promethazine, PACU Recovery, Routine promethazine (PHENERGAN) injection 12.5 mg 12.5 mg, Intravenous, EVERY 30 MIN PRN, 2 doses, Starting on Thu09/02/19 at 1051, Until Thu09/02/19 at 1220, Nausea, VESICANT - Dilute with a minimum of 10 mL saline. LARGE VEIN only. Inject over 10 minutes into the farthest port of a running IV infusion. Remain with the patient and STOP infusion immediately if patient reports burning. Avoid extravasation. If multiple antiemetics are ordered, use ondansetron first and if ineffective use prochlorperazine second and if ineffective use promethazine., PACU Recovery, Routine sodium chloride 0.9 % (flush) flush 5-20 mL 5-20 mL, Intravenous, EVERY 1 MIN PRN, S tarting on Thu09/02/19 at 0743, Until Thu09/02/19 at 1220, flush, Flush pertains to all indwelling lines. Flush per protocol found in the job aid using the link provided on this m edication record., Day of Surgery (Day of Procedure), Routine documented in this encounter Active and Recently Administered Medications Times are shown in EST. Scheduled Medication Order 08/31/2019 09/01/2019 09/02/2019 ciprofloxacin (CIPRO) 400 mg in dextrose 5% 200 mL (COMPLETED) 0846 (Given - Provider: Pola Salinas CRNA) 400 mg, Intravenous, APPLICATION DEVELOPMENT DIRECTOR TO O.R., 1 dose, Thu09/02/19 at 0800, Administer over 60 Minutes, Day of Surgery (Day of Procedure), Indication for (Active or Suspected): Prophylaxis, Restricted Antibioti c: Please indicate the most appropriate choice: Pre-approved Indication (State the indication in Comments field) Continuous Medication Order 08/31/2019 09/01/2019 09/02/2019 lactated ringers infusion 0811 ( New Bag - Provider: Faith Mcleod RN) 1,000 mL, at 100 mL/hr, Intravenous, CON TINUOUS, Starting Thu09/02/19 at 0800, Until Thu09/02/19 at 1220, Day of Surgery (Day of Procedure) PRN Medication Order 08/31/2019 09/01/2019 09/02/2019 fentaNYL (PF) 50mcg/mL injection 25-50 mcg, Intravenous, EVERY 5 MIN PRN, Starting Thu09/02/19 at 1051, Until Thu09/02/19 at 1220, Pain, Give 25 mcg every 5 minutes PRN for mild to moderate pain (1-5) Give 50 mcg every 5 minutes PRN for moderate to severe pain (6-10). Hold for respiratory rate less than 10 per minute. Maximum dose 250 mcg over one hour. If ordered with hydromorphone or morphine, give hydromorphone or morphine first and use fentanyl for breakthrough pain., PACU Recovery, Routine iohexol (OMNIPAQUE) 300 mg/mL solution (CANCELED) 0912 (Given - Provider: Delfino Tabor MD - Comment: Dye allergy discussed with Dr. Tabor and Dr. Norman prior to pouring on sterile field.) ONCE PRN, Starting Thu09/02/19 at 0912, Until Thu09/02/19 at 1419, Intra- Operative (Intra-Procedure), Routine lidocaine (XYLOCAINE) 10 mg/mL (1 %) injection 3 mg (COMPLETED) 0800 (Given - Provider: Faith Mcleod RN) 3 mg (0.3 mL), Subcutaneous, ONCE PRN, 1 dose, Starting Thu09/02/19 at 0743, Until Discontinued, for discomfort with PIV insertion, Day of Surgery (Day of Procedure), Routine naloxone (NARCAN) injection 0.04 mg 0.04 mg, Intravenous, EVERY 5 MIN PRN, S tarting Thu09/02/19 at 1051, Until Thu09/02/19 at 1220, Opioid Reversal, for respiratory rate less than 6 or unresponsive., May repeat every 5 minutes to increa se respiratory rate. DO NOT exceed 0.12 mg total dose. Notify anesthesia immediately if administered., PACU Recovery, Routine ondansetron (ZOFRAN) injection 4 mg 4 mg, Intravenous, EVERY 30 MIN PRN, Sta rting Thu09/02/19 at 1051, Until Thu09/02/19 at 1220, Nausea, May repeat 4 mg once in 30 minutes. If multiple antiemetics ordered, use ondansetron first and i f ineffective use prochlorperazine secon d and if ineffective use promethazine, PACU Recovery prochlorperazine (COMPAZINE) injection 5 mg 5 mg, Intravenous, EVERY 30 MIN PRN, 2 d oses, Starting Thu09/02/19 at 1051, Until Thu09/02/19 at 1220, Nausea, May repeat 5 mg once in 30 minutes. If multiple antiemetics ordered, use ondansetron fi rst and if ineffective use prochlorperaz ine second and if ineffective use promethazine, PACU Recovery, Routine promethazine (PHENERGAN) injection 12.5 mg 12.5 mg, Intravenous, EVERY 30 MIN PRN, 2 doses, Starting Thu09/02/19 at 1051, Until Thu09/02/19 at 1220, Nausea, VESICANT - Dilute with a minimum of 10 mL saline. LARGE VEIN only. Inject over 10 chloe dayron into the farthest port of a running IV infusion. Remain with the patient and STOP infusion immediately if patient reports burning. Avoid extravasation. If multiple antiemetics are ordered, use on dansetron first and if ineffective use p rochlorperazine second and if ineffective use promethazine., PACU Recovery, Routine sodium chloride 0.9 % (flush) flush 5-20 mL 5-20 mL, Intravenous, EVERY 1 MIN PRN, S tarting Thu09/02/19 at 0743, Until Thu09/02/19 at 1220, flush, Flush pertains to all indwelling lines. Flush per protocol found in the job aid using the link pr ovided on this medication record., Day of Surgery (Day of Proced ure), Routine documented in this encounter Care Teams Photograph Retoucher Relationship Specialty Start Date End Date Terri Bowser MD PCP - General Family Medicine 07/02/17 [address] [place] [address] documented as of this encounter
--- OUTSIDE RECORDS SUMMARY | 2022-07-08 09:32 | XMS_ITS | Encounter Summary ---
:1945 Author Organization [place] [address] Care Team Providers Name Role Phone Terri Bowser MD Primary Care Provider Encounter Details Date Type Department Care Team Description 08/03/2020 Orders Only Urology at [facility] Valerie Martinez, Kidney stones [facility] [place] [phone] Social History Tobacco Use Types Packs/Day [...] Toño Rodriguez PA [facility] ER DR [address] [place], [place] [address] (Wo rk) documented as of this encounter Goals Goal Patient Goal Associated Recent Patient-Stated? Author Type Problems Progress Home Medication Patient No O'Rour ke, Compliance and Facing Rachael Resendiz, Understanding Action Plan [facility] Note: Formatting of this note might be d ifferent from the original. Patient's goal is to decrease pain by 50 % over the next 6 months (current pain 7 out of 10, would like to get down to 3) documented as of this encounter Visit Diagnoses Diagnosis Kidney stones Calculus of kidney documented in this encounter Care Teams Director Mortgage Relationship Specialty Start Date End Date Terri Bowser MD PCP - General Family Medicine 07/02/17 [address] [place] [address] documented as of this encounter
--- OUTSIDE RECORDS SUMMARY | 2022-07-08 09:32 | XMS_ITS | Encounter Summary ---
:1945 Author Organization [facility] [place] [address] Care Team Providers Name Role Phone Terri Bowser MD Primary Care Provider Encounter Details Date Type Department Care Team Description 07/28/2019 Telephone [place] [facility] [place] [phone] Social History Tobacco Use Types Packs/Day Years Used Date Former Smoker 2 Quit: 07/19/19 77 Smokeless Tobacco: Never Used Alcohol Use Standard Drinks/Week Comments No 0 (1 standard drink = 0.6 oz pure alcoho l) Sex Assigned at Date Recorded Not on file documented as of this encounter Miscellaneous Notes Telephone Encounter - Alannah Mitchell - 07/28/2019 1:25 PM EDT Pt called wondering what was going on with surgery? I told her that I have a booking sheet and need to find a surgeon to do it in the time frame I was given. I was hoping to get her in with [facility] on 08/09 but its not set in stone. She is confused on why she has a NPW on 10/26/2019 with Diana if we are trying to get her in for surgery? She also states that she cannot be under anesthesia for 2 hrs as shehas heart problems. She is very concerned about this. I told her that I wasn't sure what to do and that I would page a resident to call and speak more about this, and someone would keep me in the loop.She is scheduled to have a nuclear stress test on Thursday 08/02 in [facility]. Please call her at home totalk more about this. Thank you Alannah documented in this encounter Plan of Treatment Upcoming Encounters Date Type Specialty Care Team Description 02/26/2023 Office Visit Rheumatology Toño Rodriguez PA [facility] ER R[place] [address] (Wo rk) documented as of this encounter Goals Goal Patient Goal Associated Recent Patient-Stated? Author Type Problems Progress DH Home Medication Patient No O'Rour ke, Compliance and Facing Rachael Resendiz, Understanding Action Plan [facility] Note: Formatting of this note might be d ifferent from the original. Patient's goal is to decrease pain by 50 % over the next 6 months (current pain 7 out of 10, would like to get down to 3) documented as of this encounter Visit Diagnoses Not on filedocumented in this encounter Care Teams Rehabilitation Manager Relationship Specialty Start Date End Date Terri Bowser MD PCP - General Family Medicine 07/02/17 [address] [place] [address] documented as of this encounter
--- OUTSIDE RECORDS SUMMARY | 2022-07-08 09:32 | XMS_ITS | Encounter Summary ---
:1945 Author Organization [facility] [place] [address] Care Team Providers Name Role Phone Terri Bowser MD Primary Care Provider Encounter Details Date Type Department Care Team Description 08/08/2019 Orders Only Urology Delfino Tabor, Calculus of kidney [facility] with calculus of Drive [facility] [place] [address] UROLOGY DEPT [address] [address] Social History Tobacco Use Types Packs/Day Years [...] 02/26/2023 Office Visit Rheumatology Toño Rodriguez PA [facility] ER RHEUMATOLOGY [place], [place] [address] (Wo rk) documented as of this encounter Goals Goal Patient Goal Associated Recent Patient-Stated? Author Type Problems Progress Home Medication Patient No Dario'Errol moralez, Compliance and Facing Rachael Astrid, Understanding Action Plan [facility] Note: Formatting of this note might be d ifferent from the original. Patient's goal is to decrease pain by 50 % over the next 6 months (current pain 7 out of 10, would like to get down to 3) documented as of this encounter Results Urine culture Clean Catch Urine (08/09/2019 1:45 PM EDT) [facility] Method Time Signature Urine Culture No growth ALEIDA TERRELL (Less than [facility] 1,000 [facility] cfu/ml). LABORATORY Specimen (Source) Anatomical Collection Method Collection Time Re ceived Time Location / / Volume Laterality Urine specimen 08/09/2019 1:45 08/09/2019 2:04 obtained by clean PM EDT PM EDT catch procedure (specimen) Resulting Agency Comment Spec In Lab Lupillo Bhatia MD MICROBIOLOGY - GENERAL ORDER KEKE Performing Organization Address City/State/ZIP Code Phon e Number [facility] [place] [place] [address] documented in this encounter Visit Diagnoses Diagnosis Calculus of kidney with calculus of uret er Calculus of kidney documented in this encounter Care Teams Cartridge Filler Relationship Specialty Start Date End Date Terri Bowser MD PCP - General Family Medicine 07/02/17 [address] [place] [address] documented as of this encounter
--- OUTSIDE RECORDS SUMMARY | 2022-07-08 09:32 | XMS_ITS | Encounter Summary ---
:1945 Author Organization [facility] [place] [address] Care Team Providers Name Role Phone Terri Bowser MD Primary Care Provider Reason for Visit Reason Comments Medication Management Encounter Details Date Type Department Care Team Description 12/28/2019 Specialty Pharmacy Pharmacy at [facility] [address] Social History Tobacco Use Types Packs/Day Years Used Date Former Smoker Cigarettes 2 10 Quit: 07/19/19 77 Smokeless Tobacco: Never Used Alcohol Use Standard Drinks/Week Comments No 0 (1 standard drink = 0.6 oz pure alcoho l) Sex Assigned at Date Recorded Not on file documented as of this encounter Progress Notes Zander Contreras RPH - 12/28/2019 10:55 AM EDT Clinical Management Plan: Transfer of Care/Discharge Specialty Services Specialty Pharmacy Consultation; Zander Contreras [facility] Comprehensive Medication Management (CMM) Francisca Kong [address] [place] [address] Telephone Information: Work Phone Not on file. Is the patient transferring services to a different Specialty Pharmacy or discontinuing the medication: Opting out of Specialty Pharmacy services Medication: Humira Reason for discontinuation or transfer: Lost to contact - not refilled since May 2019 Approximate date of discontinuation or transfer: 12/28/19, but hasnt used for over six months Patient's response to therapy: Unknown Summary of services provided by [facility] Specialty: Initial consult, dispensing, benefits investigation Summary of on-going needs: None Referral for additional services (if applicable): no Instructions provided to patient about discharge/transfer: no Provider aware of discontinuation or transfer: Yes Patient understands no changes to current drug regimen were made at the appointment and that [facility] is providing recommendations (summary located at top of note) for provider review and follow up. Zander Contreras RPH 12/28/19 10:55 AM documented in this encounter Plan of Treatment Upcoming Encounters Date Type Specialty Care Team Description 02/26/2023 Office Visit Rheumatology Toño Rodriguez PA [facility] RHEUMATOLOGY [place], [place] [address] (Wo rk) documented as of this encounter Goals Goal Patient Goal Associated Recent Patient-Stated? Author Type Problems Progress Home Medication Patient No O'Rour ke, Compliance and Facing Rachael Resendiz, Understanding Action Plan [facility] Note: Formatting of this note might be d ifferent from the original. Patient's goal is to decrease pain by 50 % over the next 6 months (current pain 7 out of 10, would like to get down to 3) documented as of this encounter Visit Diagnoses Not on filedocumented in this encounter Care Teams Concrete Vault Maker Relationship Specialty Start Date End Date Terri Bowser MD PCP - General Family Medicine 07/02/17 [address] [place] [address] documented as of this encounter
--- OUTSIDE RECORDS SUMMARY | 2022-07-08 09:32 | XMS_ITS | Encounter Summary ---
:1945 Author Organization [facility] [place] [address] Care Team Providers Name Role Phone Terri Bowser MD Primary Care Provider Encounter Details Date Type Department Care Team Description 08/02/2019 Telephone Urology at [facility] Evens Ortiz Jr., MD [facility] [place] [address] UROLOGY DEPT. [phone] [place], [place] [address] (Wo rk) Social History Tobacco Use Types Packs/Day Years Used Date Former Smoker 2 Quit: 07/19/19 77 Smokeless Tobacco: Never Used Alcohol Use Standard Drinks/Week Comments No 0 (1 standard drink = 0.6 oz pure alcoho l) Sex Assigned at Date Recorded Not on file documented as of this encounter Miscellaneous Notes Telephone Encounter - Benny Finn - 08/02/2019 1:01 PM EDT LMOM and LMOC - Have opening for NPW with Dr. Ortiz 08/03/19. documented in this encounter Plan of Treatment Upcoming Encounters Date Type Specialty Care Team Description 02/26/2023 Office Visit Rheumatology Toño Rodriguez PA [facility] RHEUMATOLOGY [place] [address] (Wo rk) documented as of this encounter Goals Goal Patient Goal Associated Recent Patient-Stated? Author Type Problems Progress DH Home Medication Patient No O'Rour ke, Compliance and Facing Rachael Resendiz, Understanding Action Plan [facility] Note: Formatting of this note might be d ifferent from the original. Patient's goal is to decrease pain by 50 % over the next 6 months (current pain 7 out of 10, would like to get down to 3) documented as of this encounter Visit Diagnoses Not on filedocumented in this encounter Care Teams Yarn Preparation Supervisor Relationship Specialty Start Date End Date Terri Bowser MD PCP - General Family Medicine 07/02/17 [address] [place] [address] documented as of this encounter
--- OUTSIDE RECORDS SUMMARY | 2022-07-08 09:32 | XMS_ITS | Encounter Summary ---
:1945 Author Organization [facility] [place] [address] Care Team Providers Name Role Phone Terri Bowser MD Primary Care Provider Encounter Details Date Type Department Care Team Description 05/29/2020 Office Visit Urology at [facility] [place] Boni Hunt, Uric acid [facility] nephrolithiasis (Primary [facility] MEDICAL ) [place], [place] CENTER [address] NEPHROLOGY DEPT. [phone] [place] [id number] Social History Tobacco Use Types Packs/Day Years Used Date Former Smoker Cigarettes 2 10 Quit: 07/19/19 77 Smokeless Tobacco: Never Used Alcohol Use Standard Drinks/Week Comments No 0 (1 standard drink = 0.6 oz pure alcoho l) Sex Assigned at Date Recorded Not on file documented as of this encounter Progress Notes Boni Hunt MD - 05/29/2020 2:30 PM EDT Hypertension/Nephrology Consultation Francisca Kong [id number] 1945 ID: [id number] y.o. old female seen at the request of Dr. Ortiz for evaluation of nephrolithiasis Past Medical History: Patient Active Problem List Diagnosis Code ??? [...] pain syndrome G89.4 ??? Food intolerance K90.49 History of Present Illness: Patient presented last fall with acute left flank pain. CT scan showed an obstructing stone and she was noted to have a Cr of 1.9, up from 0.9. She reports passing small stones for about 5 years prior but had not required surgery prior to this episode. She underwent PCNL 07/21/19 with removal of a 100% uric acid stone. She has been careful to increase her fluid intake since that time and has had no further episodes of renal colic. No hematuria, dysuria, fevers, hematuria. She has multiple medical comorbidities, including ASCVD with chronic stable angina, COPD with chronic dyspnea, dysphagia following a difficult intubation, and intermittent nausea. She has been trying to take urocit K tablets, but has only been able to take 2 of the prescribed 4 tablets per day secondary to burning GI discomfort. She is monitoring urine pH daily and it is usually 5. Medications: Outpatient Encounter Medications as of 05/29/2020 Medication Sig Dispense Refill ??? metoprolol succinate XL (Toprol-XL) 25 mg Tablet Sustained Release 24 hr ??? citric acid-sodium citrate (Bicitra) 500-334 mg/5 mL Solution Take 15 mLs by mouth 3 times daily. 473 mL PRN ??? cycloSPORINE (Restasis) 0.05 % Dropperette 1 drop 2 times daily. ??? potassium citrate SR (Urocit) 10 mEq (1,080 mg) Tablet Sustained Release Take 2 tablets by mouth2 times daily. (Patient not taking: Reported on 05/29/2020) 120 tablet 3 ??? ammonium lactate (LAC-HYDRIN) 12 % Lotion ??? Asmanex Twisthaler 220 mcg/ actuation (60) Aerosol Powdr Breath Activated ??? pantoprazole EC (Protonix) 40 mg Tablet, Delayed Release (E.C.) TAKE ONE TABLET BY MOUTH TWICE ADAY 3 ??? Colace 2-In-1 8.6-50 mg Tablet TAKE ONE TO TWO TABLETS BY MOUTH EVERY DAY TWO TIMES A DAY NEEDED ??? [DISCONTINUED] Custom medication 1 each. ??? docusate sodium (COLACE) 100 mg Capsule Take 100 mg by mouth 2 times daily. ??? [DISCONTINUED] predniSONE (DELTASONE) 1 mg Tablet Take by mouth 9mg per day and decrease by 1mg every 2 weeks until you are at 5mg daily. Take along with 5mg tablets to complete taper. 150 tablet 1 ??? [DISCONTINUED] adalimumab (HUMIRA,CF, PEN) 40 mg/0.4 mL Pen Injector Kit Inject 0.4 mLs subcutaneously every 14 days. (Patient not taking: Reported on 11/08/2019) 2 kit 3 ??? metFORMIN (GLUCOPHAGE) 500 mg Tablet Take [...] needed for Wheezing. ??? NARCAN 4 mg/actuation [place], Non-Aerosol ??? lidocaine (LIDODERM) 5 % Adhesive [...] 4 Units 2 times daily. 12 ??? BD INSULIN PEN NEEDLE UF MINI 31 gauge x 3/16 Needle USE ONCE DAILY WITH LEVEMIR 4 ??? calcium carbonate 648 mg calcium Tablet Take 650 mg by mouth 3 times daily (with meals). ??? lisinopril (PRINIVIL;ZESTRIL) 10 mg Tablet Take 5 mg by mouth daily. ??? fluticasone (FLONASE) 50 mcg/actuation [place], Suspension daily. ??? polyethylene glycol (MIRALAX) 17 gram Powder in Packet Take 17 g by mouth daily. ??? Insulin Lispro (HUMALOG KWIKPEN) Insulin [...] mcg/Actuation inhaler 2 Puff(s), Inh, Q6H No facility-administered encounter medications on file as of 05/29/2020. Allergies / ADRs: Allergies Allergen Reactions ??? Albuterol Other (See [...] Hypertension ??? Beta-Blockers (Beta-Adrenergic Blocking Agts) ??? Cephalexin ??? Ether Hives ??? Fluoxetine ??? Gabapentin ??? Histamine Palpitations SVT's ??? Histamine H2 Inhibitors ??? Montelukast Sodium Diarrhea and Nausea And Vomiting ??? Morphine Sulfate Pt requests no morphine. ??? Sulfamethoxazole-Trimethoprim Family History: Father on dialysis secondary to DM Social History: Quit smoking 45 years ago, no ETOH x 45 years, 6 kids, retired [employer] Review of Systems: System Abnormalities Constitutional No fevers Eye + visually impaired ENT + dysphagia CV Chronic stable angina Resp Chronic MODI GI Intermittent nausea No dysuria Skin + psoriasis Allergy No allergies Endocrine + DM Neurologic No headaches Musculoskeletal No joint swelling Lymph No edema Psych No lethargy/confusion. Some memory difficulty Y N All other systems reviewed and negative. Physical Examination: Vitals 05/29/2020 BP 134/62 Patient Position Pulse 78 Temp Temp src Resp Height to cm. Height in inches Weight (Lao) Weight (Metric) BMI (Calculated) BSA (Calculated - sq m) SpO2 Heart Rate Source General: NAD Eye: Conjunctivae clear ENT: No external lesions Neck: S/NT CV: reg Resp: CTA Abd: S/NT Ext: No edema Skin: Warm/dry Neuro: nonfocal Psych: A&O, affect appropriate Labs: A/P: 1. Renal: uric acid nephrolithiasis, now with relief of obstruction. She is having difficulty with alkalinization therapy but does state she is drinking 3 L of fluid per day. She has physical difficulty collecting a 24 hour urine so this has not yet been done, but her urine is not sufficiently alkalinized. - will try adding bicitra 1 TBSP to each liter of water, 3 times daily. - continue urocit K 1 tab TID as tolerated - she will follow urine pH daily and call if it goes above 7 - if bicitra is not tolerated or is ineffective, will try NaHCO3 - check renal function and serum uric acid level at next visit. If she has hyperuricemia, we will consider allopurinol therapy Discussed with Dr. Ortiz. Thank you for allowing me to participate in the care of this interesting patient. Please CC to: Terri Bowser MD @[email or web address]@ documented in this encounter Plan of Treatment Upcoming Encounters Date Type Specialty Care Team Description 02/26/2023 Office Visit Rheumatology Toño Rodriguez PA [facility] RHEUMATOLOGY [place], [place] [address] (Wo rk) documented as of this encounter Goals Goal Patient Goal Associated Recent Patient-Stated? Author Type Problems Progress DH Home Medication Patient No O'Rour ke, Compliance and Facing Rachael Resendiz, Understanding Action Plan [facility] Note: Formatting of this note might be d ifferent from the original. Patient's goal is to decrease pain by 50 % over the next 6 months (current pain 7 out of 10, would like to get down to 3) documented as of this encounter Visit Diagnoses Diagnosis Uric acid nephrolithiasis - Primary documented in this encounter Care Teams Ribbon Blockmaker Relationship Specialty Start Date End Date Terri Bowser MD PCP - General Family Medicine 07/02/17 [address] [place] [address] documented as of this encounter
--- OUTSIDE RECORDS SUMMARY | 2022-07-08 09:32 | XMS_ITS | Encounter Summary ---
:1945 Author Organization [facility] [place] [address] Care Team Providers Name Role Phone Terri Bowser MD Primary Care Provider Encounter Details Date Type Department Care Team Description 05/25/2020 Telephone Urology at [facility] Evens Ortiz Jr., MD [facility] [address] UROLOGY DEPT. [phone] [place], [place] [address] (Wo rk) Social History Tobacco Use Types Packs/Day Years Used Date Former Smoker Cigarettes 2 10 Quit: 07/19/19 77 Smokeless Tobacco: Never Used Alcohol Use Standard Drinks/Week Comments No 0 (1 standard drink = 0.6 oz pure alcoho l) Sex Assigned at Date Recorded Not on file documented as of this encounter Miscellaneous Notes Telephone Encounter - Benny Finn - 05/25/2020 11:05 AM EDT LMOM - Would like to move pt's appt to 2 pm on 05/29 and then schedule her also to see Dr. Hunt. Need to know if pt can come in that early. documented in this encounter Plan of Treatment Upcoming Encounters Date Type Specialty Care Team Description 02/26/2023 Office Visit Rheumatology Toño Rodriguez PA [facility] RHEUMATOLOGY [place], [place] [address] (Wo rk) documented as of this [...] on filedocumented in this encounter Care Teams Rubbish Collector Relationship Specialty Start Date End Date Terri Bowser MD PCP - General Family Medicine 07/02/17 [address] [place] [address] documented as of this encounter
--- OUTSIDE RECORDS SUMMARY | 2022-07-08 09:32 | XMS_ITS | Encounter Summary ---
:1945 Author Organization [facility] [place] [address] Care Team Providers Name Role Phone Terri Bowser MD Primary Care Provider Reason for Visit Reason Onset Date Comments Medication Refill 03/21/2020 Encounter Details Date Type Department Care Team Description 03/21/2020 Refill Urology at [facility] [place] Reinaldo Norman MD Kidney stones [facility] [address] [place] [address] [place] [address] [phone] (Wo rk) Social History Tobacco Use Types [...] 02/26/2023 Office Visit Rheumatology Toño Rodriguez PA [facility] [address] [place], [place] [address] (Wo rk) documented as of [...] kidney documented in this encounter Care Teams Process Planner Relationship Specialty Start Date End Date Terri Bowser MD PCP - General Family Medicine 07/02/17 [address] [place] [address] documented as of this encounter
--- OUTSIDE RECORDS SUMMARY | 2022-07-08 09:32 | XMS_ITS | Encounter Summary ---
:1945 Author Organization [facility] [place] [address] Care Team Providers Name Role Phone Terri Bowser MD Primary Care Provider Reason for Visit Reason Onset Date Comments Triage 07/21/2019 Encounter Details Date Type Department Care Team Description 07/21/2019 Telephone Rheumatology at [facility] [place] [address] Social History Tobacco Use Types Packs/Day Years Used Date Former Smoker 2 Quit: 07/19/19 79 Smokeless Tobacco: Never Used Alcohol Use Standard Drinks/Week Comments No 0 (1 standard drink = 0.6 oz pure alcoho l) Sex Assigned at Date Recorded Not on file documented as of this encounter Miscellaneous Notes Telephone Encounter - Kelly Centeno RN - 07/21/2019 2:13 PM EDT I was able to leave Francisca a detailed message (confidential line, patient also provided verbal consent) with instructions to continue holding her Humira until after her surgery, after she is off all antibiotics, and until her infection/surgical site is well healed. Additionally I asked her to call us back in about 1 week for an update so we can discuss her progress after the surgery. I left my name and callback number for her if needed and wished her the best of luck with her procedure/recovery. Telephone Encounter - Kelly Centeno RN - 07/21/2019 9:29 AM EDT Patient also called stating she has held her Humira due to a current infection and upcomming surgery. I attempted to reach Francisca to advise on specific details such as holding the med until her infection has fully cleared but she was unavailable. I will attempt to reach her again at a later time. Telephone Encounter - Kelly Centeno RN - 07/21/2019 9:26 AM EDT ----- Message from Allyson Godfrey RPH sent at 07/20/2019 3:21 PM EDT ----- Regarding: Hosp Admit - delay in Humira Hi team, Just wanted to let you know that we spoke to Francisca Kong today regarding Humira. She was due to inject today, however, she is currently admitted and will be holding off on her dose. She states she currently has an infection and will be having surgery. I did transfer her call to the clinic, but wanted to make sure I followed up in case she did not leave a message so that this would be on your radar. Thank you, Allyson Godfrey, [place] documented in this encounter Plan of Treatment Upcoming Encounters Date Type Specialty Care Team Description 02/26/2023 Office Visit Rheumatology Toño Rodriguez PA [facility] [address] [place], [place] [address] (Wo rk) documented as of this encounter Goals Goal Patient Goal Associated Recent Patient-Stated? Author Type Problems Progress DH Home Medication Patient No O'Errol moralez, Compliance and Facing Rachael T, Understanding Action Plan [facility] Note: Formatting of this note might be d ifferent from the original. Patient's goal is to decrease pain by 50 % over the next 6 months (current pain 7 out of 10, would like to get down to 3) documented as of this encounter Visit Diagnoses Not on filedocumented in this encounter Care Teams Recycling Or Rubbish Collector Relationship Specialty Start Date End Date Terri Bowser MD PCP - General Family Medicine 07/02/17 [address] [place] [address] documented as of this encounter
--- OUTSIDE RECORDS SUMMARY | 2022-07-08 09:32 | XMS_ITS | Encounter Summary ---
:1945 Author Organization [facility] [place] [address] Care Team Providers Name Role Phone Terri Bowser MD Primary Care Provider Encounter Details Date Type Department Care Team Description 06/05/2020 Telephone Urology at [facility] Shakira Leonard APRN [facility] [place] [address] UROLOGY [phone] [place], [place] [address] (Wo rk) Social History Tobacco Use Types Packs/Day Years Used Date Former Smoker Cigarettes 2 10 Quit: 07/19/19 77 Smokeless Tobacco: Never Used Alcohol Use Standard Drinks/Week Comments No 0 (1 standard drink = 0.6 oz pure alcoho l) Sex Assigned at Date Recorded Not on file documented as of this encounter Miscellaneous Notes Telephone Encounter - Shakira Leonard RN - 06/05/2020 10:59 AM EDT Prior authorization for Sodium Bicarb submitted to insurance. Awaiting response. documented in this encounter Plan of Treatment Upcoming Encounters Date Type Specialty Care Team Description 02/26/2023 Office Visit Rheumatology Toño Rodriguez PA [facility] RHEUMATOLOGY [place], [place] [address] (Wo rk) documented as of this encounter Goals Goal Patient Goal Associated Recent Patient-Stated? Author Type Problems Progress DH Home Medication Patient No O'Rour ke, Compliance and Facing Rachael Resendiz, Understanding Action Plan [facility] Note: Formatting of this note might be d ifferent from the original. Patient's goal is to decrease pain by 50 % over the next 6 months (current pain 7 out of 10, would like to get down to 3) documented as of this encounter Visit Diagnoses Not on filedocumented in this encounter Care Teams Check Services Clerk Relationship Specialty Start Date End Date Terri Bowser MD PCP - General Family Medicine 07/02/17 [address] [place] [address] documented as of this encounter
--- OUTSIDE RECORDS SUMMARY | 2022-07-08 09:32 | XMS_ITS | Encounter Summary ---
:1945 Author Organization [facility] [place] [place] [address] Care Team Providers Name Role Phone Terri Bowser MD Primary Care Provider Reason for Visit Consultation (Routine) - Specialty Diagnoses / Procedures Referred By Contact Refer red To Contact Rheumatology Diagnoses Polymyalgia rheumatica Terri Bowser MD [facility] [place], [place] Rheumatology [address]c [address] [place] [address] [place] [address] Fax: Referral ID Status Reason Start Date Expiration Date Visits V isits Requested Authorized [id number] Consult, Test 11/05/2020 05/04/2021 [facility] PCP Updated and/or Approved Encounter Details Date Type Department Care Team Description 01/24/2021 Office Visit [place] [facility] [place]ing Roldan, Psoriatic arthritis; [facility] RESEARCH AND DEVELOPMENT MANAGER [place] [address] [phone] [place], [place] [address] Social History Tobacco Use Types [...] Sign Reading Time Taken Comments Blood Pressure 117/65 01/24/2021 10:48 AM EDT Pulse 71 01/24/2021 10:48 AM EDT Temperature 37.1 ??C (98.7 ??F) 01/24/2021 10:48 AM EDT Respiratory Rate - - Oxygen Saturation 100% 01/24/2021 10:48 AM EDT Inhaled Oxygen Concentration - - Weight 87.1 kg (192 lb) 01/24/2021 10:48 AM EDT PT repo rted Height 157.5 cm (5' 2.01) 01/24/2021 10:48 AM EDT Body Mass Index 35.11 01/24/2021 10:48 AM EDT documented in this encounter Patient Instructions Patient InstructionsNing Roldan APRN - 01/24/2021 11:00 AM EDT 3L for labs today We are starting leflunomide. Start a 10mg for 2 wks. Then let me know how you are doing. We will check labs today. Then repeat labs in one month at [facility]. Common side effects include nausea, diarrhea, headache, rash documented in this encounter Progress Notes Ning Roldan APRN - 01/24/2021 11:00 AM EDT Francisca Kong is a 75 y.o. female seen for ongoing evaluation and management of psoriatic arthritis. INTERVAL HISTORY: She couldn't get rides here and can't drive with vision. She was seeing rheum in [place] but Retired She is on 3mg of [...] Heredia 05/06/19 Last seen 2016. Followed in [facility]. Reports had been followed by . Prior treatments: MTX (trouble breathing), leflunomide (diarrhea); enbrel (unspecified). Reports all my friends from [facility] and prednisone. Has been [...] on routine health maintenance and screening exams. PHYSICAL EXAMINATION: Vitals: 01/24/21 1048 BP: 117/65 Pulse: 71 Temp: 37.1 ??C (98.7 ??F) TempSrc: Temporal SpO2: 100% Weight: 87.1 kg (192 lb) Height: 157.5 cm (5' 2.01) Constitutional: Pleasant female sitting comfortably. Ambulates with cane, using motorized wheel chair HEENT: Normocephalic; (-) scleral injection, oral mucous membranes moist and intact. (-) lymphadenopathy (-) thyromegaly (-) parotid or submandibular gland enlargement CHEST: Heart RRR, (-) murmur or extra sounds. Lungs: (-) wheezing, rales or rhonchi. Neuro: Speech clearly articulated. CN II-XII grossly intact. Musculoskeletal: Muscle mass bilaterally symmetric. Joint exam: Neck: ROM functional, limited in bilateral flexion/rotation. +synovitis at bilateral wrists & cmcs, minor synovitis at 2nd mps bl +synovitis at left R elbow with contracture Knees tender with minor cool effusions Shoulders with anterior ttp, reduced rom bl Ankle ttp bl but no synovitis Skin: Warm, dry; (-) telangiectasias; (-) ulcers; (-) nail pitting;(-) bruising. No active pso, +signs of excoriation (+) allodynia ASSESSMENT : Psoriatic arthritis, responsive to steroid; chronic steroid use; Fibromyalgia PLAN/RECOMMENDATIONS: I reviewed prior clinic notes and referral notes. Active dz on exam, not currently on dmard. On ogyg0ad thru PCP for PMR. Did not tolerate a variety of medications. 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 Prior clinic notes suggest diarrhea with leflunomide but she can not remember the experience. Did not tolerate mtx, did not tolerate ssz and with sulfa antibx allergy, no hcq with eye disease. We reviewed administration, se, adrs, expectations of lef today. Start 10mg for 2 wks. Then she willcheck in with me and as long as tolerate will increase to 20mg. Check CMP, CBC, CRP, ESR today. Reviewed DMARD hold parameters: Clinic contact in event of fever, chills, antibx use, planned surgery Had both covid vaccines Check labs in 1 month at [facility]. Gave Kenalog 40mg IM today. Reviewed possible SE of steroid. Stay at pred 3mg for now, as managed by PCP. Perhaps the addition of lef will allow us to get her off pred in the future. Ongoing calcium and vitamin D dietary intake and supplementation. Recently had DEXA with PCP, awaiting results. Phone call in 2 months documented in this encounter Plan of Treatment Upcoming Encounters Date Type Specialty Care Team Description 02/26/2023 Office Visit Rheumatology Toño Rodriguez PA [facility] RHEUMATOLOGY [place], [place] [address] (Wo rk) documented as of [...] Procedure Name Priority Date/Time Associated Comments Diagnosis HC C-REACTIVE PROTEIN Routine 01/24/2021 12:28 Psoriatic arthr itis Results for this PM EDT procedure are i n the results section. HEMOGRAM Routine 01/24/2021 12:28 Psoriatic arthr itis Results for this PM EDT High risk procedure are i n medication use the results section. DIFFERENTIAL, Routine 01/24/2021 12:28 Psoriatic arthr itis Results for this AUTOMATED PM EDT High risk procedure are i n medication use the results section. HC VENIPUNCTURE Routine 01/24/2021 12:28 Psoriatic arthritis R esults for this PM EDT procedure are i n the results section. HC CBC,PLT & AUTO DIFF Routine 01/24/2021 12:28 Psoriati c arthritis PM EDT High risk medication use COMPREHENSIVE Routine 01/24/2021 12:28 Psoriatic arthr itis Results for this METABOLIC PANEL PM EDT High risk procedure ar e in (NON-FASTING) medication use the results section. documented in this encounter Results (ABNORMAL) Differential, Automated (01/24/2021 12:28 PM EDT) [facility] Method Time Signature Neutrophils % 75.5 % [facility] Neutr Abs (ANC) 7.59 (H) 1.70 - [facility] 6.10 [facility] x10(3)/[facility] LABORATORY Lymphocytes % 15.7 % [facility] Lymphocytes Abs 1.6 0.9 - 3.2 [facility] x10(3)/[facility] LABORATORY Monocytes % 5.3 % [facility] Monocyte Abs 0.5 0.3 - 0.9 [facility] x10(3)/[facility] LABORATORY Eosinophils % 2.6 % [facility] Eosinophils Abs 0.3 0.0 - 0.4 [facility] x10(3)/[facility] LABORATORY Basophils % 0.3 % [facility] Basophils Abs 0.0 0.0 - 0.1 [facility] x10(3)/[facility] LABORATORY Immature Gran % 0.60 % [facility] Comment: Immature granulocytes(IG's)percentage an d absolute count will include metamyelocytes, myelocytes, and promyelo cytes. Blood smears from CBCs yielding IG's will be scanned manually for concor dance. If this scan disagrees with the automated IG or if promyelocytes are not ed, a manual differential will be performed. [place] Gran Abs 0.06 (H) 0.00 - 0.04 x10(3)/[facility] LABORATORY Specimen Anatomical Collection Method Collection Time Receive d Time (Source) Location / / Volume Laterality Blood specimen 01/24/2021 12:28 1 (specimen) PM EDT 12:32 PM EDT Resulting Agency Comment Spec In Lab Ning Benítez Yuli GILL HEMATOLOGY ORDERABLES Performing Organization Address City/State/ZIP Code Phon e Number [address] (ABNORMAL) Hemogram (01/24/2021 12:28 PM EDT) Analysis Performed At Patho logist Time Signature WBC 10.0 (H) 4.0 - 9.5 [facility] LABORATORY RBC 4.22 4.00 - [place] 5.21 [facility] x10(6)/[facility] LABORATORY Hemoglobin 11.2 (L) 11.7 - [place] 15.5 gm/dL [facility]ORY Hematocrit 35.7 35.7 - [facility] 45.8 % [facility]ORY MCV 84.6 82.6 - [facility] 94.4 [facility] LABORATORY MCH 26.5 (L) 27.1 - [place] [facility] 32.0 pg [facility]OR[facility]ORY MCHC 31.4 (L) 31.7 - [place] 35.0 gm/dL [facility] Platelets 245 145 - 357 [facility] x10(3)/[facility] LABORATORY RDWSD 43.5 37.0 - [facility] XANDER 46.0 [facility] LABORATORY RDWCV 14.2 (H) 11.5 - [place] 14.1 % [facility] LABORATORY MPV 10.9 7.6 - 12.9 [facility] XANDER [facility] LABORATORY nRBC % Auto 0.0 % [facility] nRBC Abs Auto 0.000 0.000 - [facility] XANDER 0.000 [facility] x10(3)/[facility] LABORATORY Specimen Anatomical Collection Method Collection Time Receive d Time (Source) Location / / Volume Laterality Blood specimen 01/24/2021 12:28 1 (specimen) PM EDT 12:32 PM EDT Resulting Agency Comment Spec In Lab Ning Jackelin Roldan APRN HEMATOLOGY ORDERABLES Performing Organization Address City/State/[place] [address] Sedimentation rate (01/24/2021 12:28 PM EDT) athologist Signature Sed Rate 36 3 - 46 [facility] mm/hr [facility] Comment: Effective September 28, 2019 new capillar y photometric technology has resulted in a change in reference ranges. It is r ecommended that each ESR result be reviewed with its own age appropriate re ference range. Specimen Anatomical Collection Method Collection Time Receive d Time (Source) Location / / Volume Laterality Blood specimen 01/24/2021 12:28 1 (specimen) PM EDT 12:32 PM EDT Resulting Agency Comment Spec In Lab Ning Roldan APRN HEMATOLOGY ORDERABLES Performing Organization Address City/[facility]/ZIP Code Phon e Number [address] (ABNORMAL) CRP, acute inflammation (01/24/2021 12:28 PM EDT) athologist [facility] CRP 5.5 (H) <=4.9 mg/L [facility] Specimen Anatomical Collection Method Collection Time Receive d Time (Source) Location / / Volume Laterality Blood specimen 01/24/2021 12:28 1 (specimen) PM EDT 12:32 PM EDT Resulting Agency Comment Spec In Lab Ning Roldan APRN CHEMISTRY ORDERABLES Performing Organization Address City/State/[place] [address] Comprehensive metabolic panel (non-fasting) (01/24/2021 12:28 PM EDT) athologist [facility] Glucose Lvl 182 65 - 199 [facility] mg/dL [facility] Comment: Diabetes: >=200 mg/dL plus symp toms BUN 18 8 - 18 mg/dL [facility]OR[facility]ORY Creatinine 0.80 0.70 - 1.20 mg/dL [facility]OR[facility] Sodium 139 135 - 145 mmol/L [facility] Potassium 4.8 3.5 - 5.0 mmol/L [facility] Comment: Please note: ??Patients with WBC >100,00 0 may have falsely elevated Potassium levels. ??For accurate Potassium quantif ication in these patients send serum separator tube (gold top) for subsequent determinations. ??Contact the Clinical Chemistry Laboratory if there are any qu estions. Chloride 101 98 - 107 mmol/L [facility] CO2 27 22 - 31 mmol/L [facility] Anion Gap 11 5 - 15 mmol/L [facility] Calcium 9.6 8.5 - 10.5 mg/dL [facility] Total Protein 7.2 6.1 - 8.0 gm/dL [facility] Albumin 4.8 3.2 - 5.2 gm/dL [facility] AST 16 0 - 30 unit/L [facility] ALT 18 0 - 30 unit/L [facility] Alk Phos 77 35 - 105 unit/L [facility] Total Bilirubin 0.3 0.2 - 1.3 mg/dL [facility] Estimated GFR 71 >=60 mL/min/1.73 m?? [facility] Comment: This patient? s estimated glomerular filtration rate (eGFR) is between 71 mL/min/1.73 m2 (patients with less muscl e mass) and 82 mL/min/1.73 m2 (patients with more muscle mass) as determined by the CKD-EPI equation. Assessment of eGFR is not appropriate when creatinine concentrations are rapidly changing. For clinical decisions where creatinine clearance will affect therapy, a 24-hour urine creatinine clearance may b e advised. Assignment of CKD stage 1 - 5 for patien ts with an eGFR near the transition point between stages may be based on cli nical assessment of muscle mass and symptoms in addition to eGFR. Specimen Anatomical Collection Method Collection Time Receive d Time (Source) Location / / Volume Laterality Blood specimen 01/24/2021 12:28 1 (specimen) PM EDT 12:32 PM EDT Resulting Agency Comment Spec In Lab Ning Roldan APRN CHEMISTRY ORDERABLES Performing Organization Address City/State/ZIP [place] [address] documented in this encounter Visit Diagnoses Diagnosis Psoriatic arthritis Psoriatic arthropathy High risk medication use Encounter for long-term (current) use of other medications documented in this encounter Administered Medications Inactive Administered Medications - up to 3 most recent administrations Medication Order MAR Action Action Date Dose Rate Site triamcinolone acetonide Given 01/24/2021 12:12 PM 40 mg Left Deltoid (Kenalog-40) (40 mg/mL) EDT injection 40 mg 40 mg, Intramuscular, ONCE, 1 dose, On Katherine 01/24/21 at 1200, Routine documented in this encounter Care Teams Billposting Supervisor Relationship Specialty Start Date End Date Terri Bowser MD PCP - General Family Medicine 07/02/17 [address] [place] [address] documented as of this encounter
--- OUTSIDE RECORDS SUMMARY | 2022-07-08 09:32 | XMS_ITS | Encounter Summary ---
:1945 Author Organization [facility] [place] [address] Care Team Providers Name Role Phone Terri Bowser MD Primary Care Provider Reason for Visit Reason Onset Date Comments Questions 11/26/2020 Pt left message requ esting a call back for guidance with making homemade soups using store purchased vegetable, turkey, chicken broth. Encounter Details Date Type Department Care Team Description 11/26/2020 Telephone Urology at [facility] Evens Ortiz Jr., Questions (Pt left [facility] message requesting a [facility] [place] for [place] [address] with making homemade [phone] UR[address]Y [address]PT[address] soups using store [place], [place] [address] purchased vegetable, (Wo rk) turkey, chicken broth.) Social History Tobacco Use Types Packs/Day Years Used Date Former Smoker Cigarettes 2 10 Quit: 07/19/19 77 Smokeless Tobacco: Never Used Alcohol Use Standard Drinks/Week Comments No 0 (1 standard drink = 0.6 oz pure alcoho l) Sex Assigned at Date Recorded Not on file documented as of this encounter Miscellaneous Notes Telephone Encounter - Arianna Grady RD - 11/27/2020 12:09 PM EST [facility] Telephone call to Pt to answer Pt questions. Pt asking about preparing homemade soups from store purchased vegetable, turkey or chicken broth andhow to calculate protein in a serving. Discussed label reading and assisted Pt to calculate protein in prepared soup and translating that into protein in portion eaten. Guided Pt to limit herself to approximately 3 oz protein from animals at a meal. Advised Pt to seasoning with herbs and spices without added salt. Praised Pt for increasingvegetables in meal preporation and adding more plant based foods to her diet. Provided additional guidance for carbohydrate counting for glycemic control. Reminded Pt to aim for 3 - 4 quarts of water daily and to limit high and moderate purine rich foods. Pt was receptive and expressed gratitude for guidance. Will remain available for Pt questions. Arianna Grady MPH, RD, CDE, LD documented in this encounter Plan of Treatment Upcoming Encounters Date Type Specialty Care Team Description 02/26/2023 Office Visit Rheumatology Toño Rodriguez PA [facility] [place]HEUMATOLOGY [place], [place] [address] (Wo rk) documented as of this encounter Goals Goal Patient Goal Associated Recent Patient-Stated? Author Type Problems Progress DH Home Medication Patient No O'Rour ke, Compliance and Facing Rachael Resendiz, Understanding Action Plan [facility] Note: Formatting of this note might be d ifferent from the original. Patient's goal is to decrease pain by 50 % over the next 6 months (current pain 7 out of 10, would like to get down to 3) documented as of this encounter Visit Diagnoses Diagnosis History of renal stone Personal history of urinary calculi documented in this encounter Care Teams [place] Rug Setter Relationship Specialty Start Date End Date Terri Bowser MD PCP - General Family Medicine 07/02/17 [address] [place] [address] documented as of this encounter
--- OUTSIDE RECORDS SUMMARY | 2022-07-08 09:32 | XMS_ITS | Encounter Summary ---
:1945 Author Organization [facility] [place] [address] Care Team Providers Name Role Phone Terri Bowser MD Primary Care Provider Reason for Visit Reason Comments Nephrolithiasis Encounter Details Date Type Department Care Team Description 10/30/2020 [place] [facility] [place] Ortiz Jr., Nephrolith[place] [facility] [place] [address] [facility] [phone] UROLOGY DEPT. [place], [place] [address] (Wo rk) Social History Tobacco Use Types Packs/Day Years Used Date Former Smoker Cigarettes 2 10 Quit: 07/19/19 79 Smokeless Tobacco: Never Used Alcohol Use Standard Drinks/Week Comments No 0 (1 standard drink = 0.6 oz pure alcoho l) Sex Assigned at Date Recorded Not on file documented as of this encounter Progress Notes Evens Ortiz Jr., MD - 10/30/2020 2:00 PM EST Images from the original note were not included. HPI: Francisca Kong is a 75 y.o. woman who presents for urologic follow up regarding recurrent uric acid urolithiasis. She was noted to have 2 nonobstructing left lower pole renal stones (largest 7 mm)at time of last imaging in April 2020. She has opted to monitor these. Based on her uric acid urolithiasis she has been managed on potassium citrate (10 mEq twice daily). Dr. Hunt from nephrology additionally added sodium bicarbonate due to reported persistently low urine pH. However she noted urine pH is in excess of 8, spoke with Dr. Hunt, and together they decidedto stop the sodium bicarb. In the interval since her last visit, she denies with the stone passage or suspected renal colic. She is comfortable today. She notes continued, long-term urinary incontinence. Currently she is comfortable. She denies any abdominal pain, flank pain, gross hematuria. Her only current complaint is urinary incontinence which has been long-term. She reports urine pH is at home continue to be between 7 and 8. REVIEW OF SYSTEMS 10/30/2020 Constitutional Weight gain, Fatigue, lack of energy, Drowsiness, Pain Ear / nose / throat / mouth Hearing difficulty, Dry mouth Eyes Blurry vision, Dry eyes, Other eye problems Respiratory Shortness of breath Cardiovascular Fluttering heart beat (heart palpitations), Chest pain Gastrointestinal Trouble swallowing Skin, hair Dry skin, Itching Musculoskeletal Joint stiffness, Back pain, Joint pain, Muscle stiffness, Reduced range of motion, Unable to walk/difficulty walking Neurological Numbness, tingling Hematologic / Lymphatic Sore or swollen lymph nodes, glands Genitourinary Frequent urination, Sexual problems, Urinary incontinence Other Symptoms - PMHx: Anxiety, arthritis, asthma, 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 disease, diabetes; fibromyalgia; GERD; hyperlipidemia; hypertension PSHx: Cataract excision; left ureteroscopy FamHx: No known family h/o urolithiasis SocHx: Former tobacco use Physical Exam Constitutional: She is oriented to person, place, and time. She appears well- developed and well-nourished. No distress. HENT: Head: Normocephalic and atraumatic. Cardiovascular: Normal rate. Pulmonary/Chest: Effort normal. Abdominal: Soft. There is no abdominal tenderness. There is no rebound. Genitourinary: Genitourinary Comments: No CVA tenderness to percussion bilaterally Neurological: She is alert and oriented to person, place, and time. Skin: Skin is warm and dry. She is not diaphoretic. Psychiatric: She has a normal mood and affect. Her behavior is normal. Vitals reviewed. 24h urinalysis Imaging Studies: I independently reviewed the renal US from today. This reveals multiple right renalcysts, several septations (being followed by Dr. Norman). There is no evidence of hydronephrosis, hydroureter, or residual or new stones. The previously identified lower pole stones are no longer vi sualized. IMPRESSION 1. Multiple RIGHT renal cysts, several with fine septations the largest approximately 7 cm which contains several avascular septations. This is increased in size slightly compared to prior ultrasounds 2. No renal calculi identified in either kidney today. Normal LEFT kidney. No hydronephrosis in either kidney 3. Incomplete imaging of the liver but it appears enlarged Stone analysis: 100% uric acid Impression/Plan: 1)Uric acid urolithiasis We discussed that the previously identified left lower pole stones are no longer seen. We discussed that given her ability to achieve urine pH greater than 7 for for long period of time she may have successfully alkalinize and dissolved her uric acid stones. Alternatively we discussed small stones maybe missed by ultrasound (although there is no suggestion of questionable echogenicities on today's report). We again reviewed the general pathophysiology of uric acid urolithiasis, noting that high purine diet may contribute but often the largest driving factor is simply low urinary pH. She has reduced purine intake and has corrected her urine pH. She will continue potassium citrate 10 mEq twice daily and will defer further NaBicarb. 2)history of recurrent nephrolithiasis. We reviewed 24h urine, additionally recommended increased fluid intake to maintain 2 liters urine output daily. Plan follow-up in the multidisciplinary metabolic stone clinic 1 year with renal ultrasound and review of 24-hour urine, sooner if needed. Arianna Grady RD - 10/30/2020 2:00 PM EST Nutrition Intervention for the Management of Kidney Stone Disease Assessment/Nutrition Diagnosis: Pt at increased nutritional lithogenic risk related to: - sub optimal fluid intake questionable. 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 Estimated body mass index is 34.39 kg/m?? as calculated from the following: Height as of 09/02/19: 157.5 cm (5' 2). Weight as of an earlier encounter on 10/30/20: 85.3 kg (188 lb). 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 Missing teeth requires cut up fruit ok to chew cut up meat. Meals on wheels (no added salt) with limPt wearing CGM and reports FBG running 120 - 138 mg/dL and going up to 240 - 400 mg/dL after lunchited selection and one meal daily. Mostly beef served 6/7 days. Pt scrapes gravy off food. Pt states I hate the diet. Pt reading labels for sugar. Pt expressed confusion on foods high in purine. Typical Dietary Intake: Up 8:00 am, 32 oz water w/lemon juice B: 8:30 am Van Romanian yogurt Too Good (140C), V-8 juice LS, or egg (160), cheese (100), sausage (100), bread (80), butter (70) Snack: 10:00 - 11:00 am Halo x 2 (60C) L: 3:00 pm Meal On Wheel MARCO ANTONIO meat 4 oz, starch (pot), veg 1/2 c (25), rarely add Devens or sour dough bread (80) w/butter (70) or apple pealed (60), 6 x grapes and 1/2 yogurt D: 7:30 pm if Meals on wheels eaten at lunch will have fruit and 1/2 container yogurt for dinner. Snacks: 10:00 pm PB (200), bread (80), 1/2 banana (60), 1% milk (110), cheese (100) Beverages: 3 qts water, 8 oz 1% milk, V-8 6 oz Sleep: 1:30 - 2:00 am Vitamins/supplements: NA - Based on reported fluid intake, patient consuming approximately 3.3 L/day Goal is to consume approximately 2-3 L/day Will monitor fluid intake at next encounter. Intervention: - Recommended timing of dietary calcium with meals (3-400 grams/serving) - Instructed pt on Low Sodium Food Choices (under 2 grams/day) - Discussed modification of amount of meat/day (g/kg) - Instructed pt on Low-Oxalate Food choices - Provided diet education materials on Low Purine Monitor/Evaluate: 1) Pt will increase water from 3 quarts to 4 quarts daily. 2) Limit meat at meals to 3 oz (palm size). 3) D/C sausage at breakfast, put egg on bread and skip butter on bread. 4) Have 1 dairy product at each meal. 5) Eat Lunch by 12:00 - 1:00 pm to avoid glucose excursions. 6) Re-read low purine handout and limit moderate purine foods to once weekly. 2) Follow up 24 hour urine analysis will show progress towards meeting goals Arianna Grady RD documented in this encounter Plan of Treatment Upcoming Encounters Date Type Specialty Care Team Description 02/26/2023 Office Visit Rheumatology Toño Rodriguez PA [facility] RHEUMATOLOGY [place], [place] [address] (Wo rk) documented as of this encounter Goals Goal Patient Goal Associated Recent Patient-Stated? Author Type Problems Progress DH Home Medication Patient No O'Rour naomy, Compliance and Facing Rachael Resendiz, Understanding Action Plan [facility] Note: Formatting of this note might be d ifferent from the original. Patient's goal is to decrease pain by 50 % over the next 6 months (current pain 7 out of 10, would like to get down to 3) documented as of this encounter Visit Diagnoses Diagnosis Nephrolithiasis Calculus of kidney documented in this encounter Care Teams Vice President Safety Relationship Specialty Start Date End Date Terri Bowser MD PCP - General Family Medicine 07/02/17 [address] [place] [address] documented as of this encounter
--- OUTSIDE RECORDS SUMMARY | 2022-07-08 09:32 | XMS_ITS | Encounter Summary ---
:1945 Author Organization [facility] [address] Care Team Providers Name Role Phone Terri Bowser MD Primary Care Provider Encounter Details Date Type Department Care Team Description 10/30/2020 Office Visit Urology [place] [facility] Stephen Martini Recurrent [facility] nephrolithiasis [facility] [id number] NEPHROLOGY DEPT. [phone] [place] [id number] Social History Tobacco Use Types Packs/Day Years Used Date Former Smoker Cigarettes 2 10 Quit: 07/19/19 77 Smokeless Tobacco: Never Used Alcohol Use Standard Drinks/Week Comments No 0 (1 standard drink = 0.6 oz pure alcoho l) Sex Assigned at Date Recorded Not on file documented as of this encounter Last Filed Vital Signs Vital Sign Reading Time Taken Comments Blood Pressure 133/73 10/30/2020 1:57 PM EST Pulse 76 10/30/2020 1:57 PM EST Temperature - - Respiratory Rate - - Oxygen Saturation 99% 10/30/2020 1:57 PM EST Inhaled Oxygen Concentration - - Weight 85.3 kg (188 lb) 10/30/2020 1:57 PM EST Height - - Body Mass Index 34.39 09/02/2019 7:16 AM EST documented in this encounter Progress Notes Stephen Martini MD - 10/30/2020 2:30 PM EST Images from the original note were not included. 75 y/o woman for follow up of nephrolithiasis The patient has a history of recurrent uric acid nephrolithiasis, her last stone episode was in 09/06, requiring operative stone removal, a subsequent ultrasound showed stone recurrence, the patient was treated with both potassium citrate and sodium bicarbonate by , stopped sodium bicarbonateas urine was extremely alkaline, recent urine pH on potassium citrate alone was 8.5 No complaint offered, a review of systems was negative Recent labs: 06/26/20 urine pH 8.5 24 hour urine collection Medications: Current Outpatient Medications: ??? potassium citrate SR (Urocit) 10 mEq (1,080 mg) Tablet Sustained Release, Take 2 tablets by mouth 2 times daily., Disp: 120 tablet, Rfl: 11 ??? metoprolol succinate XL (Toprol-XL) 25 mg Tablet Sustained Release 24 hr, , Disp: , Rfl: ??? sodium bicarbonate 650 mg Tablet, Take 1 tablet by mouth 3 times daily., Disp: 90 tablet, Rfl: 11 ??? citric acid-sodium citrate (Bicitra) 500-334 mg/5 mL Solution, Take 15 mLs by mouth 3 times daily., Disp: 473 mL, Rfl: PRN ??? cycloSPORINE (Restasis) 0.05 % Dropperette, 1 drop 2 times daily., Disp: , Rfl: ??? ammonium lactate (LAC-HYDRIN) 12 % Lotion, , Disp: , Rfl: ??? Asmanex Twisthaler 220 mcg/ actuation (60) Aerosol Powdr Breath Activated, , Disp: , Rfl: ??? pantoprazole EC (Protonix) 40 mg Tablet, Delayed Release (E.C.), TAKE ONE TABLET BY MOUTH TWICE A DAY, Disp: , Rfl: 3 ??? Colace 2-In-1 8.6-50 mg Tablet, TAKE ONE TO TWO TABLETS BY MOUTH EVERY DAY TWO TIMES A DAY NEEDED, Disp: , Rfl: ??? docusate sodium (COLACE) 100 mg Capsule, Take 100 mg by mouth 2 times daily., Disp: , Rfl: ??? metFORMIN (GLUCOPHAGE) 500 mg Tablet, Take 500 mg by mouth daily., Disp: , Rfl: ??? magnesium oxide (MAG-OX) 400 mg (241.3 mg magnesium) Tablet, Take 400 mg by mouth daily., Disp: , Rfl: ??? rosuvastatin (CRESTOR) 10 mg Tablet, Take 10 mg by mouth three times a week., Disp: , Rfl: ??? levalbuterol (XOPENEX) 0.31 mg/3 mL Solution for Nebulization, Take 1 ampule by nebulization every 4 hours as needed for Wheezing., Disp: , Rfl: ??? NARCAN 4 mg/actuation [place], Non-Aerosol, , Disp: , Rfl: ??? lidocaine (LIDODERM) 5 % Adhesive Patch, Medicated, Apply 1 patch onto the skin daily. (leave onfor 12 hours and remove for 12 hours), Disp: 30 patch, Rfl: 3 ??? BD INSULIN PEN NEEDLE UF SHORT 31 gauge x 5/16 Needle, USE THREE TIMES A DAY WITH HUMALOG INSULIN, Disp: , Rfl: 3 ??? nitroGLYcerin (NITROSTAT) 0.4 mg Tablet, Sublingual, as needed., Disp: , Rfl: ??? BISAC-EVAC 10 mg Suppository, USE ONE SUPPOSITORY RECTALLY DAILY NEEDED, Disp: , Rfl: 5 ??? ONETOUCH ULTRA TEST Strip, TEST FIVE TIMES A DAY, Disp: , Rfl: 3 ??? cholecalciferol, Vitamin D3, (VITAMIN D-3) 5,000 unit Tablet, Take by mouth daily., Disp: , Rfl: ??? LEVEMIR FLEXTOUCH Insulin Pen, 4 Units 2 times daily., Disp: , Rfl: 12 ??? BD INSULIN PEN NEEDLE UF MINI 31 gauge x 3/16 Needle, USE ONCE DAILY WITH LEVEMIR, Disp: , Rfl:4 ??? calcium carbonate 648 mg calcium Tablet, Take 650 mg by mouth 3 times daily (with meals)., Disp:, Rfl: ??? lisinopril (PRINIVIL;ZESTRIL) 10 mg Tablet, Take 5 mg by mouth daily., Disp: , Rfl: ??? fluticasone (FLONASE) 50 mcg/actuation [place], Suspension, daily., Disp: , Rfl: ??? polyethylene glycol (MIRALAX) 17 gram Powder in Packet, Take 17 g by mouth daily., Disp: , Rfl: ??? Insulin Lispro (HUMALOG KWIKPEN) Insulin Pen, Inject 2-8 Units subcutaneously 3 times daily as needed., Disp: , Rfl: ??? meclizine (ANTIVERT) 12.5 mg tablet, Take 12.5 mg by mouth as needed., Disp: , Rfl: ??? OXYcodone (ROXICODONE) 5 mg immediate release tablet, Take 5 mg by mouth daily as needed., Disp:, Rfl: ??? ascorbic acid (VITAMIN C) 1,000 mg tablet, Take 1,000 mg by mouth as needed., Disp: , Rfl: ??? aspirin 325 mg tablet, Take 325 mg by mouth daily., Disp: , Rfl: ??? OMEGA-3S/DHA/EPA/FISH OIL (OMEGA 3 ORAL), Take 4,800 mg by mouth 4 times daily., Disp: , Rfl: ??? rosuvastatin (CRESTOR) 5 mg tablet, Take by mouth. 5 mg 4 times a week and 10mg 3 times a week, Disp: , Rfl: ??? digoxin (LANOXIN) 125 mcg tablet, Take 62.5 mcg by mouth daily., Disp: , Rfl: ??? acetaminophen (TYLENOL EXTRA STRENGTH) 500 mg tablet, Take 1,000 mg by mouth 3 times daily as needed. Reported on 03/11/2017, Disp: , Rfl: ??? verapamil (CALAN) 40 mg tablet, 40 mg, PO, Three times daily (Patient taking differently: 40 mg,PO, Three times daily, and 1 additional if needed), Disp: , Rfl: ??? Levalbuterol Tartrate (XOPENEX HFA) 45 mcg/Actuation inhaler, 2 Puff(s), Inh, Q6H, Disp: , Rfl: Allergies Allergen Reactions ??? Albuterol Other (See [...] Sulfate Pt requests no morphine. ??? Sulfamethoxazole-Trimethoprim Physical exam: Vitals 10/30/2020 BP 133/73 Pulse 76 Temp Resp Height (Lithuanian) Height (Metric) Weight (Lithuanian) 188 lbs Weight (Metric) 85.276 kg BMI (Calculated) Pulse Oximetry 99 O2 Flow Rate (L/min) O2 Device BSA Overweight Normal color Lungs clears Heart regular rhythm, no rub, no murmur No costophrenic angle tenderness Abdomen soft Limbs no edema Renal ultrasound: SERVICE(S) PROVIDED: URETRO - Retroperitoneal Complete - [id number] INDICATIONS: ?stone COMPARISON: Ultrasound: 05/09/2020 RIGHT KIDNEY: Size (cm) L: 14.3 Cortical Thickness: Normal Cortical Echogenicity: Normal Hydronephrosis: No sonographic evidence Comment: Multiple cysts the largest is in the lo pole and measures 6.6 x 6.3 x 7.0 cm and has many avascular septations LEFT KIDNEY: Size (cm) L: 10.7 Cortical Thickness: Normal Cortical Echogenicity: Normal Hydronephrosis: No sonographic evidence Comment: No renal calculi seen. URINARY BLADDER: Pre-void (cm) L: 5.6 AP: 4.8 TV: 7.5 Vol (ml): 105.6 Comment: Partially distended, normal contour IMPRESSION 1. Multiple RIGHT renal cysts, several with fine septations the largest approximately 7 cm which contains several avascular septations. This is increased in size slightly compared to prior ultrasounds 2. No renal calculi identified in either kidney today. Normal LEFT kidney. No hydronephrosis in either kidney 3. Incomplete imaging of the liver but it appears enlarged A/P: Patient with recurrent uric acid nephrolithiasis which appear to have resolved with treatment As the patient is drinking plenty of water and potassium citrate has alkalinized her urine A decision was made to stop sodium bicarbonate Risk factors for stone recurrence were discussed Discussed with the team documented in this encounter Miscellaneous Notes Addendum Note - Stephen Martini MD - 10/30/2020 2:30 PM EST Addended by: STEPHEN MARTINI on: 10/30/2020 02:42 PM Modules accepted: Orders documented in this encounter Plan of Treatment Upcoming Encounters Date Type Specialty Care Team Description 02/26/2023 Office Visit Rheumatology Toño Rodriguez PA [facility] [address] [place], [place] [address] (Wo rk) documented as of [...] this encounter Visit Diagnoses Diagnosis Recurrent nephrolithiasis Calculus of kidney documented in this encounter Care Teams Liner Reroll Tender Relationship Specialty Start Date End Date Terri Bowser MD PCP - General Family Medicine 07/02/17 [address] [place] [address] documented as of this encounter
--- OUTSIDE RECORDS SUMMARY | 2022-07-08 09:32 | XMS_ITS | Encounter Summary ---
:1945 Author Organization [facility] [address] Care Team Providers Name Role Phone Terri Bowser MD Primary Care Provider Encounter Details Date Type Department Care Team Description 11/17/2019 Orders Only Urology at [facility] [place] Reinaldo Norman MD [facility] [place] [address] UROLOGY DEPT [phone] [place], [place] [address] (Wo rk) Social History Tobacco [...] PA [facility] [address] [place], [place] [address] (Wo rk) documented as of this encounter Goals Goal Patient Goal Associated Recent Patient-Stated? Author Type Problems Progress [facility] Medication Patient No Asya moralez, Compliance and Facing Racahel Resendiz, Understanding Action Plan [facility] Note: Formatting of this note might be d ifferent from the original. Patient's goal is to decrease pain by 50 % over the next 6 months (current pain 7 out of 10, would like to get down to 3) documented as of this encounter Visit Diagnoses Not on filedocumented in this encounter Care Teams Physical Therapy Assistant Instructor Relationship Specialty Start Date End Date Terri Bowser MD PCP - General Family Medicine 07/02/17 [address] [place] [address] documented as of this encounter
--- OUTSIDE RECORDS SUMMARY | 2022-07-08 09:32 | XMS_ITS | Encounter Summary ---
:1945 Author Organization [facility] [place] [address] Care Team Providers Name Role Phone Terri Bowser MD Primary Care Provider Encounter Details Date Type Department Care Team Description 09/02/2019 Anesthesia Event Main Operating Room Boni South MD [facility] [place] [address] [facility] Casie Schmidt MD [facility] [place] [address] [place] [address] Anesthesia Record Procedure Summary Procedure Name Responsible Anesthesia Start Anesthesia Stop Anesthesiologist Time Time CYSTO, RETROGRADE, Boni Blackburn MD 09/02/19 0825 09/02/19 1051 URETEROPYELOGRAPHY (WRVU 2.37) (N/A Ureter) Events Date Time Event Comment 09/02/2019 0811 0825 Start 0830 AN Verify 0830 An Start Data 0837 An Induction 0846 An Intubation 0846 Anesthesia Ready 0859 Procedure Start 1045 Extubation/LMA Out 1045 an stop data 1051 Recovery or ICU Handoff Patient care was transferred to the destination unit staff after review of the patient's medica l history, current anesthetic/surgi shay status and plan, according to the Provider Handoff Checklist. 1051 Stop Name Total Midazolam 4 mg fentaNYL 100 mcg IV Lidocaine 50 mg Propofol 200 mg Rocuronium 50 mg Ondansetron 8 mg Dexamethasone 8 mg Neostigmine 3 mg Glycopyrrolate 0.6 mg ciprofloxacin (CIPRO) 400 mg in dextrose 5% 200 mL 400 mg Propofol INF 349.4 mg Agents Name O2 Air N2O Sevoflurane (et) Blood No blood administrations on file. Lines, Drains, and Airways Type Details Placement Removal PIV 09/02/19; 0807; median cubital 09/02/19 0807 by Tobin, 09/02/19 1213 by Arnulfo, vein (antecubital fossa), WM Salazar RN right; [id number] catheter system; 20 gauge, 1 in length; Angélica Mcleod RN; distraction, intradermal injection, tolerated well, appears comfortable; 1; cephalic vein (lateral side of arm), right; no longer indicated; 09/02/19; 1213 ETT Mask Ventilation: Easy (1); 09/02/19 0840 by Nasreen gold, 09/02/19 1045 by Brad, ETT Type: Cuffed, Oral; ETT Pola C, BUTTER PRINTER Patr newton C, BUTTER PRINTER Size: 7 mm; Indirect:Video; Notes: Asleep, Pre-O2; Attempts: 1; Laryngoscopy Grade: 1; ETT Placement Verified By: Auscultation, Capnometry, Visual; Secured at Teeth: 22 cm; Inserted by: brad documented in this encounter Social History Tobacco Use Types Packs/Day Years Used Date Former Smoker Cigarettes 2 10 Quit: 07/19/19 77 Smokeless Tobacco: Never Used Alcohol Use Standard Drinks/Week Comments No 0 (1 standard drink = 0.6 oz pure alcoho l) Sex Assigned at Date Recorded Not on file documented as of this encounter OR Notes Anesthesia Postprocedure Evaluation - Boni Blackburn MD - 09/02/2019 12:12 PM EST Department of Anesthesiology Post-procedure Note Patient: Francisca Kong Procedure Summary Date: 09/02/19 Room / Location: [facility] OR [facility] MAIN OR Anesthesia Start: 824 Anesthesia Stop: 1050 Procedures: CYSTO, RETROGRADE, URETEROPYELOGRAPHY (WRVU 2.37) (N/A Ureter) CYSTO, REMOVAL OF STENT, FOREIGN BODY OR CALCULUS, SIMPLE (WRVU 2.81) (N/A Ureter) CYSTO, STENT PLACEMENT (WRVU 2.82) (N/A Ureter) CYSTOURETEROSCOPY,DIAGNOSTIC,W/ LITHOTRIPSY INC. INSERTION OF INDWELLING URETERAL STENT (WRVU 8) (N/A Bladder) MODIFIER HOLMIUM LASER (N/A ) Diagnosis: (LEFT URETERAL STONE) Surgeon: Reinaldo Norman MD Responsible Provider: Boni Blackburn MD Anesthesia Type: general ASA Status: 3 All Anesthesia Providers: Anesthesiologist: Boni Blackburn MD BUTTER PRINTER: Pola Salinas CRNA Vitals Value Taken Time BP 163/89 09/02/2019 11:30 AM Temp 37.1 ??C (98.8 ??F) 09/02/2019 10:48 AM Pulse Resp 16 09/02/2019 11:15 AM SpO2 98 % 09/02/2019 11:41 AM Pain Level Vitals shown include unvalidated device data. Patient Location: PACU/[facility] Level of Consciousness: Awake and Alert Pain Management: Satisfactory Analgesia PONV: None Cardiovascular Status: At Baseline Respiratory Status: At Baseline and Room Air Postoperative Fluid Status: Intravascular EUvolemia Possible Anesthetic Complications: NONE apparent at time of evaluation Final Primary Anesthesia Type: General (The anesthetic type performed was the same as planned.) Comments: Anesthesia Preprocedure Evaluation - Boni Blackburn MD - 08/09/2019 3:04 PM EDT Pre-Anesthesia Evaluation for: Francisca Kong a 74 y.o. female. Procedure(s): CYSTO, RETROGRADE, URETEROPYELOGRAPHY (WRVU 2.37) CYSTO, REMOVAL OF STENT, FOREIGN BODY OR CALCULUS, SIMPLE (WRVU 2.81) CYSTO, STENT PLACEMENT (WRVU 2.82) CYSTOURETEROSCOPY,DIAGNOSTIC,W/ LITHOTRIPSY INC. INSERTION OF INDWELLING URETERAL STENT (WRVU 8) MODIFIER HOLMIUM LASER Patient Active Problem List Diagnosis ??? Osteopenia Addendum: PRIMARY EXAM : XCSP3 CERVICAL SPINE MIN 4 VIEWS ASSOCIATED EXAM: FINAL REPORT CERVICAL SPINE, 08/13/10: INDICATION: Pain, stiffness, radicular symptoms. Compare to 2006. TECHNIQUE: AP, neutral lateral, flexion lateral, left and right oblique projections. COMPARISON: 03/31/06. FINDINGS: As before, Grade I retrolisthesis of C5 relative to C4 and C6 with C5-C6 intervertebral disk space narrowing and degenerative changes, similar to prior, perhaps slightly increased degenerative change and disk space narrowing perhaps. No significant change in the relationship on flexion and extension views. Similar uncovertebral arthropathic changes. Some neural foraminal narrowing appears similar to prior, left greater than right through the mid cervical spine, perhaps minimally increased compared to the 2006 examination. IMPRESSION: Similar appearance of degenerative changes and neural foraminal narrowing compared to 2006, with mild interval progression. LUMBAR SPINE, 02/28/10: TECHNIQUE: AP view and lateral, and spot views of the lumbar spine. COMPARISON STUDY: None. HISTORY: Psoriatic arthritis with pain in the lumbar spine and right buttock. Question vertebral fracture or DJD. FINDINGS: The patient has five non-rib bearing, lumbar-type vertebral bodies. T12 has a single rudimentary rib on the left. No fracture is seen. There is Grade I anterolisthesis of L5 on S1, with accompanying degenerative changes of the L5-S1 facets. No spondylolysis is seen. Degenerative changes are seen at T12 to L1, characterized by disc space narrowing and marginal osteophyte formation. IMPRESSION: No fracture is seen. Grade I anterolisthesis of L5 on S1, with accompanying severe degenerative changes of the facets at this level. Moderate disc space narrowing and marginal osteophyte formation at T12 to L1. Film and interpretation reviewed by the attending 12/2008 - BILATERAL HANDS AND BILATERAL FEET: INDICATION: Psoriatic arthritis. Hand, wrist, foot pain, stiffness, and swelling. Assess progression of disease. TECHNIQUE: Four views of both hands and three views of both feet are compared to 03/31/06. FINDINGS: HANDS: There has been subtle mild bilateral, left slightly greater than right basilar joint arthropathic changes, as well as not definitely changed mild interphalangeal joint space narrowing of interphalangeal joints, with minimal osteophyte formation such as at the left thumb interphalangeal joint. Previously mentioned equivocal metacarpal base lucencies that could reflect erosions are not changed and, therefore, they are felt to be unlikely due to erosions. On the lateral view, some mild osteophyte formation of the distal interphalangeal joints of both index fingers/second digits, stable to minimally increased. FEET: Stable appearance of the lateral aspect of the right fifth metatarsal head and the base of the right fifth toe proximal phalanx. No definite new areas of concern. As before, pes planus is noted. Reviewed -> DEXA EXAMINATION, 05/01/11: HISTORY: 66-year-old estrogen deficient white female on low-dose prednisone. COMPARISON STUDY: 2008. FINDINGS: The left forearm and left hip measurements are acquired. When compared to the 2009 examination, there is a 14.8% increase in her left hip and 3.3% decrease in her distal one-third radius, respectively. IMPRESSION: Her lowest T-score of -2.2 is from her femoral neck. This fulfills the WHO classification for low bone mass or osteopenia. There is discordant change with a small decrease in her left distal forearm and a marked increase in her left hip measurements. Discordant changes are not uncommon and consider continued monitoring, if indicated. ??? History of tobacco abuse ??? HTN (hypertension) ??? Diabetes mellitus type II ??? Hyperlipidemia ??? Paroxysmal SVT (supraventricular tachycardia) ??? Asthma ??? Major depression ??? Irritable bowel ??? Arthritis ??? PTSD (post-traumatic stress disorder) ??? COPD (chronic obstructive pulmonary disease) ??? Bronchospasm ??? Anxiety state, unspecified ??? Hx of tobacco use, presenting hazards to health ??? Sinusitis ??? Stomatitis ??? Macular degeneration, wet ??? Nerve entrapment ??? Neuropathy ??? Chronic pain syndrome ??? Food intolerance RASHES ??? Fibromyalgia ??? AMD (age related macular degeneration) ??? Psoriatic arthritis ??? Coronary artery disease ??? DJD (degenerative joint disease) ??? GERD (gastroesophageal reflux disease) ??? Lipid disorder ??? Reactive airway disease Past Medical History: Diagnosis Date ??? Amblyopia [...] weekly x 10 years ??? Kidney failure [facility] admission for L kidney failure; stent placed [...] OU sx with IOL Dr Kauffman in [facility] ??? CORONARY ANGIOPLASTY WITH STENT PLACEMENT 2007 ??? INTRAVITREAL INJECTION Left 12/26/08 [facility] ??? INTRAVITREAL INJECTION Left 01/23/09 [facility] ??? INTRAVITREAL INJECTION Left 02/27/09 [facility] ??? PRO CYSTOSCOPY, INSERT URETERAL STENT Left 07/21/2019 CYSTO, STENT PLACEMENT (WRVU 2.82) performed by Lupillo Bhatia MD at [facility] MAIN OR Social History Tobacco Use ??? Smoking status: Former Smoker Packs/day: 2.00 Years: 10.00 Pack years: 20.00 Types: Cigarettes Last attempt to quit: 07/19/1979 Years since quittin.0 ??? Smokeless tobacco: Never Used Substance Use Topics ??? Alcohol use: No Social History Substance and Sexual Activity Drug Use No Allergies Allergen Reactions ??? Albuterol Other (See Comments) SVT ??? Anesthetics - Amide Type Shortness Of Breath ??? Anesthetics - Ryan Type- Parabens Shortness Of Breath ??? Citalopram [...] ??? Morphine Sulfate Pt requests no morphine. Medications: MAR and/or home medications have been reviewed. Physical Exam: There were no vitals filed for this visit. There is no height or weight on file to calculate BMI. Airway Assessment: Mallampati: II TM distance: >3 FB Neck ROM: limited Cervical arthritis limits neck ROM and she is fixed in a somewhat forward position. Cardiovascular Assessment: Pulmonary Assessment: PE comment: Breath sounds clear to tidal breathing but prolonged expiratory phase on forced expiration. Dental Assessment: Comment: Several upper incisors on right that are slightly loose Misc Assessment: Anesthesia Plan: ASA 3 general, with a(n) intravenous induction See note from PAT for full documentation. Anesthesia - R/B/As discussed. QSA. Presents for cysto, stent change and laser lithotripsy. She understands that this procedure is a bit more extensive than her recent one and she is agreeable to a general anesthetic. Comorbidity includes CAD (S/P stent and recent stress test shows preserved LV function and no ischemia), KALEY (does well with CPAP), COPD, DM, inflammatory arthritis (with some involvement of cervical spine), esophageal diverticulum and GERD (the latter well controlled on meds though she recently held her prilosec). She did well with recent cataract surgery at [facility] (she says she was intubated and had propofol for induction). We plan GA/ET. Vide olaryngoscope to minimize head movement. Region - Other Informed Consent: Anesthetic plan and risks discussed with patient. Plan discussed with BUTTER PRINTER. RANJAN CALI PAT Clinic Note: Date and Time of Entry: 08/09/2019 3:05 PM Entered By: Casie Schmidt MD Reason for Evaluation: Patient Request and Decision Support/Risk Assessment PAT Visit Type: Interviewed in person Additional/Outside Records Requested? Requested medical information from outside organization. From Where? Most recent EKG from [facility] Findings, Assessment and Plan: Francisca Kong is a 74 y.o. female with a history of CAD s/p NAYAN x1 to LAD in 2007, SVT controlled on verapamil, severe asthma, KALEY on BIPAP, DM2 on insulin, GERD, esophageal diverticulum, fibromyalgia on oxycodone 60 mg total daily dose, and numerous drug sensitivities who presents for preoperative evaluation before planned ureteral stent exchange and lithotripsy currently scheduled on 09/02/[address] Arnold. In regards to her functional status she is at her baseline, which appears to be significantly limited due to asthma-related dyspnea. No cardiac symptoms at present, normal treadmill stress test from 08/04/19 and TTE from 07/19/19 with LVEF 65-70%, G2DD, otherwise normal (results scanned). In chart, flagged as difficult intubation but patient denies history of prior GAs. Reports only procedural sedation for colonoscopy, cystoscopy, etc. and on exam does not appear to have features concerning for difficult airway. Numerous allergies listed, reviewed withpatient and most are related to provoking her extremely labile SVT, including albuterol. Adverse reactions to amide/ryan local anesthetics in the past all related to coadministration with epinephrine,has tolerated lidocaine/plain local in the past without issues. She specifically asked about the possibility of a spinal or sedation with versed/fentanyl for her case. We discussed that a spinal may be an option, but depending on the level of the stone and planned intervention in the tract it may be contraindicated due to potential effects on respiratory musculature. In discussing the potential anesthetic options for her procedure with the patient, she would feel most comfortable with non-GA options (MAC, neuraxial). However, if those were not not considered the best option or not possible for the procedure, she would prefer GA with inhalational anesthetic given her severe asthma history, avoiding the use of propofol (strongly dislikes the sensation waking up after propofol). In addition, she also would like to pursue opioid minimization in the perioperative setting to avoid being placed on an escalated dose as much as possible. documented in this encounter Plan of Treatment Upcoming Encounters Date Type Specialty Care Team Description 02/26/2023 Office Visit Rheumatology Toño Rodriguez PA [facility] DR RHEUMATOLOGY [place], [place] [address] (Wo rk) documented as of this encounter Goals Goal Patient Goal Associated Recent Patient-Stated? Author Type Problems Progress DH Home Medication Patient No Asya moralez, Compliance and Facing Rachael Resendiz, Understanding Action Plan [facility] Note: Formatting of this note might be d ifferent from the original. Patient's goal is to decrease pain by 50 % over the next 6 months (current pain 7 out of 10, would like to get down to 3) documented as of this encounter Visit Diagnoses Not on filedocumented in this encounter Administered Medications Inactive Administered Medications - up to 3 most recent administrations Medication Order MAR Action Action Date Dose Rate Site ciprofloxacin (CIPRO) 400 mg in Given 09/02/2019 8:46 AM EST 400 mg dextrose 5% 200 mL 400 mg, Intravenous, SHAREBROKER TO O.R., 1 dose, On Thu09/02/19 at 0800, Administer over 60 Minutes, Day of Surgery (Day of Procedure), Indication for (Active or Suspected): Prophylaxis, Restricted Antibiotic: Please indicate the most appropriate choice: Pre-approved Indication (State the indication in Comments field) dexamethasone (DECADRON) injection Given 09/02/2019 8:44 AM EST 8 mg PRN, Starting on Thu09/02/19 at 0844, Until Thu09/02/19 at 1051, Anesthesia Intra-op, Routine fentaNYL 50 mcg/mL multi-dose injection Given 09/02/2019 10:43 AM EST 25 mcg PRN, Starting on Thu09/02/19 at 0839, Until Thu09/02/19 at 1051, Anesthesia Intra-op, Routine Given 09/02/2019 10:36 AM EST 25 mcg Given 09/02/2019 8:39 AM EST 50 mcg glycopyrrolate (ROBINUL) multi-dose inje ction Given 09/02/2019 9:57 AM EST 0.6 mg PRN, Starting on Thu09/02/19 at 0957, Until Thu09/02/19 at 1051, Anesthesia Intra-op, Routine lidocaine (PF) (XYLOCAINE) 100 mg/5 mL (2 %) Given 9 8:37 AM EST 50 mg injection PRN, Starting on Thu09/02/19 at 0837, Until Thu09/02/19 at 1051, Anesthesia Intra-op, Routine midazolam (PF) (VERSED) multi-dose injec tion Given 09/02/2019 8:34 AM EST 2 mg PRN, Starting on Thu09/02/19 at 0830, Until Thu09/02/19 at 1051, Anesthesia Intra-op, Routine Given 09/02/2019 8:30 AM EST 2 mg neostigmine (BLOXIVERZ) injection Given 09/02/2019 9:57 AM EST 3 mg PRN, Starting on Thu09/02/19 at 0957, Until Thu09/02/19 at 1051, Anesthesia Intra-op, Routine ondansetron (ZOFRAN) injection Given 09/02/2019 9:57 AM EST 8 mg PRN, Starting on Thu09/02/19 at 0957, Until Thu09/02/19 at 1051, Anesthesia Intra-op, Routine propofol (DIPRIVAN) 10 mg/mL bolus injection Given 8:37 AM EST 200 mg (Anesthesia) PRN, Starting on Thu09/02/19 at 0837, Until Thu09/02/19 at 1051, Anesthesia Intra-op propofol (DIPRIVAN) infusion New Bag 09/02/2019 8:30 AM 30 mcg/kg/min 14.9 mL/hr CONTINUOUS PRN, Starting on EST Thu09/02/19 at 0830, Until Thu09/02/19 at 1051, Anesthesia Intra-op, Routine rocuronium (ZEMURON) multi-dose injectio n Given 09/02/2019 8:37 AM EST 50 mg PRN, Starting on Thu09/02/19 at 0837, Until Thu09/02/19 at 1051, Anesthesia Intra-op, Routine documented in this encounter Care Teams Personal Injury Law Specialist Relationship Specialty Start Date End Date Terri Bowser MD PCP - General Family Medicine 07/02/17 [address] [place] [address] documented as of this encounter
--- OUTSIDE RECORDS SUMMARY | 2022-07-08 09:32 | XMS_ITS | Encounter Summary ---
:1945 Author Organization [facility] [place] [address] Care Team Providers Name Role Phone Terri Bowser MD Primary Care Provider Encounter Details Date Type Department Care Team Description 09/13/2019 Office Visit Urology at [facility] Reinaldo Norman Calculus of kidney [facility] MD [place] with [place] [address] UROLOGY DEPT [phone] [place], [place] [address] Social History Tobacco Use Types [...] Sign Reading Time Taken Comments Blood Pressure 139/80 09/13/2019 1:32 PM EST Pulse 80 09/13/2019 1:32 PM EST Temperature - - Respiratory Rate 13 09/13/2019 1:32 PM EST Oxygen Saturation - - Inhaled Oxygen Concentration - - Weight - - Height - - Body Mass Index - - documented in this encounter Patient Instructions Patient InstructionsDavis, Demetria E, RN - 09/13/2019 2:00 PM EST Instructions following Cystoscopy Activity: As tolerated by your comfort level. Fluids: You should increase your water today. Avoid coffee, tea and cola. You do not need to exceed 64 ounces of water today. Urination: You will likely have a small amount of blood in your urine for the next several days. This is normal; however, if you are passing large amounts of blood clots or are unable to void please call our office at [phone] before 5PM or [phone] after hours. Please call if: * you have copious blood in your urine * fevers greater than 101.3 F * you are unable to void The number for questions is [phone] before 5 PM weekdays and [phone] after 5 PM and weekends. Follow-up: Renal ultrasound documented in this encounter Procedure Notes Reinaldo Norman MD - 09/13/2019 2:00 PM ESTAssociated Order(s): CYSTO, STENT REMOVAL Pre-Procedure Diagnose(s): Calculus of kidney with calculus of ureter Patient: Francisca Kong Date of : 1945 SUBJECTIVE: This 74 y.o. years-old female presents for cystoscopy because of a history of ureteral calculi and previous stent placement. Stone composition: 100% uric acid stone PROCEDURE - CYSTOSCOPY: The patient was cystoscoped with a flexible scope following routine skin cleansing and drapping. 2% xylocaine gel was instillated into the urethra. The urethra was normal. The bladder mucosa was normal. No bladder tumors or foreign bodies were noted. There is a ureteral stent emerging from the left ureteral orifice. The stent was removed in the standard fashion without complication. The patient tolerated the procedure well. Patient was given ciprofloxacin 500mg IMPRESSION: Uncomplicated stent removal. PLAN: Follow up with renal u/s, 24h urine and metabolic stone clinic as scheduled. documented in this encounter Plan of Treatment Upcoming Encounters Date Type Specialty Care Team Description 02/26/2023 Office Visit Rheumatology Toño Rodriguez PA [facility] [address] [place], [place] [address] (Wo rk) documented as of this [...] Name Priority Date/Time Associated Diagnosis Comme nts CYSTO, STENT Routine 09/13/2019 2:00 PM Calculus of kidney Res ults for this REMOVAL EST with calculus of procedure a re in ureter the results section. documented in this encounter Results Cysto, Stent Removal, clinic (09/13/2019 2:00 PM EST) Narrative Reinaldo Norman MD - 09/13/2019 2:0 0 PM EST Reinaldo Norman MD ? 09/13/2019 ??3:59 PM Patient: Francisca Kong Date of : 1945 SUBJECTIVE: This 74 y.o. years-old femal e presents for cystoscopy because of a history of ureteral calculi and previous stent placement. Stone composition: 100% uric acid stone PROCEDURE - CYSTOSCOPY: The patient was cystoscoped with a flexi ble scope following routine skin cleansing and drapping. ??2 % xylocaine gel was instillated into the urethra. ??The uret hra was normal. The bladder mucosa was normal. ??No blad lamonte tumors or foreign bodies were noted. There is a ureteral s tent emerging from the left ureteral orifice. The stent was rem kassandra in the standard fashion without complication. The patient tolerated the procedure well . Patient was given ciprofloxacin 500mg IMPRESSION: Uncomplicated stent removal. PLAN: Follow up with renal u/s, 24h urine and metabolic stone clinic as scheduled. Reinaldo Norman MD UROLOGY ORDERABLES documented in this encounter Visit Diagnoses Diagnosis Calculus of kidney with calculus of uret er Calculus of kidney documented in this encounter Care Teams Silk Opener Relationship Specialty Start Date End Date Terri Bowser MD PCP - General Family Medicine 07/02/17 [address] [place] [address] documented as of this encounter
--- OUTSIDE RECORDS SUMMARY | 2022-07-08 09:32 | XMS_ITS | Encounter Summary ---
:1945 Author Organization [facility] [place] [address] Care Team Providers Name Role Phone Terri Bowser MD Primary Care Provider Reason for Visit Reason Comments Nephrolithiasis Consultation (Routine) - Closed Specialty Diagnoses / Procedures Referred By Contact Refer red To Contact Urology Diagnoses Calculus of kidney Martin Solis MD Pais, Vernon M Jr., MD [address] [facility] [address] [facility] . [address] [place] [address] Fax: Referral ID Status Reason Start Date Expiration Date Visits V isits Requested Authorized [id number] Closed Consult, 07/26/2019 07/25/2020 1 1 Test & Treat Encounter Details Date Type Department Care Team Description 05/29/2020 Office Visit Urology at [facility] [place] Ortiz Jr., Nephrolithiasis [facility] [place] [address] [facility] [phone] UROLOGY DEPT. [place], [place] [address] (Wo rk) Social History Tobacco [...] Sign Reading Time Taken Comments Blood Pressure 134/62 05/29/2020 1:52 PM EDT Pulse 78 05/29/2020 1:52 PM EDT Temperature - - Respiratory Rate - - Oxygen Saturation - - Inhaled Oxygen Concentration - - Weight - - Height - - Body Mass Index - - documented in this encounter Progress Notes Gonzalez Ortiz Jr., MD - 05/29/2020 2:00 PM EDT HPI: Gale Nunez is a 75 y.o. woman who presents for urologic consultation regarding recurrent (reportedly uric acid) urolithiasis. She was noted to have 2 nonobstructing left lower pole renal stones at time of last imaging in April 2020. She has opted to monitor these. Currently she is comfortable. She denies any abdominal pain, flank pain, gross hematuria. Her only current complaint is urinary incontinence which has been long-term. Based on her uric acid stones, she was started on potassium citrate, but has only been able to tolerate 10 mEq twice daily, noting the large pills are difficult to swallow and cause stomach upset at higher doses.. She has been tracking her urinary pH and urinary pH is generally 5.0 with sporadic and rare pH of 6.0. REVIEW OF SYSTEMS 05/26/2020 Constitutional Weight loss, Fatigue, lack of energy, Drowsiness, Pain Ear / nose / throat / mouth Hearing difficulty, Dry mouth, Change in the way food tastes, Difficultyswallowing Eyes Blurry vision, Dry eyes, Other eye problems Respiratory Don't know Cardiovascular Fluttering heart beat (heart palpitations) Gastrointestinal Don't know Skin, hair Dry skin, Sweats Musculoskeletal Joint stiffness, Back pain, Joint pain, Muscle stiffness, Reduced range of motion, Unable to walk/difficulty walking Neurological Don't know Hematologic / Lymphatic Don't know Genitourinary Frequent urination, Urinary incontinence, Dribbling Other Symptoms Fell 2 yrs ago on coccygeal area damaging urinary and bowel operations. Have Fibro, Psoractic Arth., Heart Disease. PMHx: Anxiety, arthritis, asthma, 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 disease, diabetes; fibromyalgia; GERD; hyperlipidemia; hypertension PSHx: Cataract excision; left ureteroscopy FamHx: No known family h/o urolithiasis SocHx: Former tobacco use Physical Exam Constitutional: She is oriented to person, place, and time. She appears well- developed and well-nourished. No distress. HENT: Head: Normocephalic and atraumatic. Cardiovascular: Normal rate. Pulmonary/Chest: Effort normal. No respiratory distress. Abdominal: Soft. She exhibits no distension. There is no abdominal tenderness. There is no rebound and no guarding. Genitourinary: Genitourinary Comments: No CVA tenderness to percussion bilaterally Neurological: She is oriented to person, place, and time. Skin: Skin is warm and dry. She is not diaphoretic. Psychiatric: She has a normal mood and affect. Her behavior is normal. Vitals reviewed. Imaging Studies: I independently reviewed the renal US from April 2020. This reveals complex renal cyst (being followed by Dr. Norman) as well as 2 nonobstructing left renal stones, lower pole location, maximally 7 mm in size. IMPRESSION ?? Comparison ultrasound 11/08/2019 1. Multiple septated cysts within the right kidney. Slight increase in size of 6.5 x 5.9 x 5.7 cm complex right lower pole cyst with calcified avascular septations, previously 5.7 x 6.1 x 5.3 cm 2. Two nonobstructing calculi within the left kidney, larger measuring 7 mm within the lower pole. 3. Normal contour of the partially distended bladder. Stone analysis: 100% uric acid Impression/Plan: Uric acid urolithiasis We discussed the pathophysiology of uric acid urolithiasis, noting that high purine diet may contribute but often the largest driving factor is simply low urinary pH. We discussed that this is more commonly encountered those with diabetes and metabolic syndrome. We discussed the central role of urinary alkalinization in both prevention of new uric acid stone formation and even potential dissolution of nonobstructing uric acid stones. We discussed that potassium citrate 10 mEq twice daily has been unsuccessful in adequately alkalinizing her urine based on her urine pH logs which she has kept. We discussed the role of adding sodium bicarbonate 650 mg 3 times daily to her current potassium citrate regimen she feels she could not increase potassium citrate further. She will see Dr. Hunt for nephrology consult to further review medical management of uric acid stones today. Additionally will have first speak with Travis for nutrition consultation to help avoid high purine foods. Finally, she will plan to collect a 24-hour urine to better assess stone proclivity. We discussed the importance of a full collection and the problems with incontinence may pose. We discussed the potential of placing a catheter for period of collection but she declines this at this time and will do her best to obtain a full collection. Plan follow-up in the multidisciplinary metabolic stone clinic 4 to 6 months with renal ultrasound and review of 24-hour urine, sooner if needed. documented in this encounter Plan of Treatment Upcoming Encounters Date Type Specialty Care Team Description 02/26/2023 Office Visit Rheumatology Toño Rodriguez PA [facility] [address] RHEUMATOLOGY [place], [place] [address] (Wo rk) documented as of [...] of this encounter Results US Retroperitoneal Complete (10/30/2020 1:23 PM EST) Anatomical Region Laterality Modality Abdomen Ultrasound Specimen (Source) Anatomical Collection Method Collection Time Re ceived Time Location / / Volume Laterality 10/30/2020 1:20 PM EST Impressions 10/30/2020 1:38 PM EST ?? 1. ??Multiple RIGHT renal cysts, sev eral with fine septations the largest approximately 7 cm which contains several avascular septations. This is increased in size s lightly compared to prior ultrasounds 2. ??No renal calculi identified in eit her kidney today. Normal LEFT kidney. No hydronephrosis in either kidney 3. ??Incomplete imaging of the liver bu t it appears enlarged Thank you for letting us participate in the care of this patient. For questions regarding this report, please contact t carolyn number below. Electronically signed by: Aranza Pizano MD, Radiology [place] ([phone]), at 09/2021 1:30 PM ? Aranza Pizano, Staff Physician Electronically Signed Final Report ?? 01:38 pm Narrative 10/30/2020 1:38 PM EST Renal ? (Signed Final 10/30/2020 01:38 pm) PATIENT INFO: ID #: ? [id number] ?: ??43 (75 yrs)(F) Name: ? GALE NUNEZ ? Visit Date: 10/30/2020 01:20 pm PERFORMED BY: Performed By: ? Shakira Oliver RDMS Attending: ?Harinder NANCE, Aranza Ontiveros Referred By: ?[facility]ALEZ [facility]OWERSSAINTE [facility] Location: ? [place] SERVICE(S) PROVIDED: ??URETRO - Retroperitoneal Complete - I [id number] ? [id number] INDICATIONS: ???stone COMPARISON: Ultrasound: 05/09/2020 RIGHT KIDNEY: Size (cm) ?L: ??14.3 Cortical Thickness: ?Normal Cortical Echogenicity: ?? Normal Hydronephrosis: ?No sonogr aphic evidence Comment: ?Multiple cysts the larges t is in the lo pole and ? measures 6.6 x 6.3 x 7.0 cm and has many ? avascular septations LEFT KIDNEY: Size (cm) ?L: ??10.7 Cortical Thickness: ?Normal Cortical Echogenicity: ?? Normal Hydronephrosis: ?No sonogr aphic evidence Comment: ?No renal calculi seen. URINARY BLADDER: Pre-void (cm) ? L: ??5.6 ? A P: ??4.8 ? TV: ??7.5 Vol (ml): ?105.6 Comment: ?Partially distended, norm al contour Procedure Note Aranza Pizano MD - 10/30/2020Janeen chaney of this note might be different from the original. Renal (Signed Final 10/30/2020 01:38 pm ) PATIENT INFO: ID #: [id number] : [birth year] (75 y rs)(F) Name: GALE NUNEZ Visit Date: 2020 01:20 pm PERFORMED BY: Performed By: Shakira Oliver RDMS Attending: Aranza Pizano MD Referred By: GONZALEZ ORTIZ JR Location: [place] SERVICE(S) PROVIDED: URETRO - Retroperitoneal Complete - [facility] [place] [id number] INDICATIONS: ?stone COMPARISON: Ultrasound: 05/09/2020 RIGHT KIDNEY: Size (cm) L: 14.3 Cortical Thickness: Normal Cortical Echogenicity: Normal Hydronephrosis: No sonographic evidence Comment: Multiple cysts the largest is in the lo pole and measures 6.6 x 6.3 x 7.0 cm and has man y avascular septations LEFT KIDNEY: Size (cm) L: 10.7 Cortical Thickness: Normal Cortical Echogenicity: Normal Hydronephrosis: No sonographic evidence Comment: No renal calculi seen. URINARY BLADDER: Pre-void (cm) L: 5.6 AP: 4.8 TV: 7.5 Vol (ml): 105.6 Comment: Partially distended, normal co ntour IMPRESSION 1. Multiple RIGHT renal cysts, several with fine septations the largest approximately 7 cm which contains several avascular septations. This is increased in size s lightly compared to prior ultrasounds 2. No renal calculi identified in [facility] kidney today. Normal LEFT kidney. No hydronephrosis in either kidney 3. Incomplete imaging of the liver but it appears enlarged Thank you for letting us participate in the care of this patient. For questions regarding this report, please contact t he number below. Electronically signed by: Aranza Pizano MD, [facility] [place] ([phone]), at 09/2021 1:30 PM Aranza Pizano, Staff Physician Electronically Signed Final Report 10/30 01:38 pm Gonzalez Ortiz Jr., MD [facility] GEN ORDERABLES documented in this encounter Visit Diagnoses Diagnosis Nephrolithiasis Calculus of kidney Nephrolithiasis Calculus of kidney documented in this encounter Care Teams Newspaper Correspondent Relationship Specialty Start Date End Date Terri Bowser MD PCP - General Family Medicine 07/02/17 [address] [place] [address] documented as of this encounter
--- OUTSIDE RECORDS SUMMARY | 2022-07-08 09:32 | XMS_ITS | Encounter Summary ---
:1945 Author Organization [facility] [place] [address] Care Team Providers Name Role Phone Terri Bowser MD Primary Care Provider Encounter Details Date Type Department Care Team Description 09/02/2019 Surgery Main Operating Room Buck Norman, CRIS, Samanta Stoner MD URETEROPYELOGRAPHY ([facility] MEDICAL 2.37) [facility] [address] [place] UROLOGY DEPT [place] [phone] Social History Tobacco Use Types Packs/Day Years Used Date Former Smoker Cigarettes 2 10 Quit: 07/19/19 77 Smokeless Tobacco: Never Used Alcohol Use Standard Drinks/Week Comments No 0 (1 standard drink = 0.6 oz pure alcoho l) Sex Assigned at Date Recorded Not on file documented as of this encounter Last Filed Vital Signs Vital Sign Reading Time Taken Comments Blood Pressure 143/71 09/02/2019 10:48 AM EST Pulse 87 09/02/2019 7:16 AM EST Temperature 37.1 ??C (98.8 ??F) 09/02/2019 10:48 AM EST Respiratory Rate 18 09/02/2019 10:48 AM EST Oxygen Saturation 99% 09/02/2019 10:48 AM EST Inhaled Oxygen Concentration - - [...] usually goes away in 12-24 hours. Patient InstructionsDelfino Tabor MD - 09/02/2019 10:55 AM EST DISCHARGE [...] 8:15 AM Alisha Heredia APRN Rheumat[place] at [facility] [place]rive at: [employer] Sewing Machine Operator Area 5C [phone] 10/26/2019 10:30 AM Evens Ortiz Jr., MD Urology at [facility] Arrive at: [employer]ing Machine Operator Area 5B [phone] 12/06/2019 1:00 PM Gladys Espinoza, [facility] Genetics at [facility] Arrive at: [employer] Automatic Sewing Machine Operator Area 6M [phone] 05/10/2020 12:30 PM Josiah Weber MD; DILATION AND TEST, DM; TECH, DM Ophthalmology at [facility] Arrive at: [employer] Sewing Machine Operator Area 4B [phone] Future Orders Complete By Expires US Retroperitoneal Complete [[id number] Custom] 12/03/2019 (Approximate) 03/02/2020 Process Instructions: Scheduling Instructions: Questions: Where will study be performed?: [facility] Radiology Portable exam?: Ultrasound scheduling priority: [...] for Wheezing. NARCAN 4 mg/actuation 0 06/04/2017 [place], Non-Aerosol lidocaine (LIDODERM) 5 % Apply 1 [...] fluticasone (FLONASE) 50 daily. 0 12/11/2015 mcg/actuation [place], Suspension polyethylene glycol Take 17 g by [...] 6:43 PM EST Urology PreOp H&P [place]ale [place] 74 y.o. female emale with history of [...] weekly x 10 years ??? Kidney failure [facility] admission for L kidney failure; stent [...] OU sx with IOL Dr Kauffman in [facility] ??? CORONARY ANGIOPLASTY WITH STENT PLACEMENT 2007 ??? INTRAVITREAL INJECTION Left 12/26/08 [facility] ??? INTRAVITREAL INJECTION Left 01/23/09 [facility] ??? INTRAVITREAL INJECTION Left 02/27/09 [facility] ??? PRO CYSTOSCOPY, INSERT URETERAL STENT Left 07/21/2019 CYSTO, STENT PLACEMENT (WRVU 2.82) performed by Lupillo Bhatia MD at [facility] MAIN OR No current facility-administered medications [...] mouth daily. ??? fluticasone (FLONASE) 50 mcg/actuation [place], Suspension daily. ??? Insulin Lispro (HUMALOG KWIKPEN) [...] needed for Wheezing. ??? NARCAN 4 mg/actuation [place], Non-Aerosol ??? lidocaine (LIDODERM) 5 % Adhesive [...] Note ?? Patient Name: Gale Nunez : [id number] MR#: [id number] ?? Case Date: 09/02/2019 ?? Surgeon: Surgeon(s) [...] stone was identified in the distal leftureter. [id number] micron laser fiber was then inserted through [...] Operative Note Patient Name: Gale Nunez : [id number] MR#: [id number] Case Date: 09/02/2019 Surgeon: Surgeon(s) and Role: [...] Visit Rheumatology Toño Rodriguez PA [facility] [place] [address] (Wo rk) documented as of this encounter Goals Goal Patient Goal Associated Recent Patient-Stated? Author Type Problems Progress DH Home Medication Patient No O'Rour ke, Compliance and Facing Rachael Resendiz, Understanding Action Plan [facility] Note: Formatting of this note [...] procedure are i n the results section. [facility] KIDNEY STONE Routine 09/02/2019 10:40 Resu [...] 02:40 pm) PATIENT INFO: ID #: ? [id number] ?: ??[birth year] (74 yrs) Name: ? GALE NUNEZ ? Visit Date: 11/08/2019 02:14 pm PERFORMED BY: Performed By: ? Néstor Hay RDMS Attending: ?Harinder NANCE, Aranza Ontiveros Referred By: ?BUCK NORMAN Location: ? [facility] SERVICE(S) PROVIDED: ??URETRO - Retroperitoneal Complete - I [id number] ? [id number] INDICATIONS: ??Eval for hydronephrosis after stent p [...] 02:40 pm ) PATIENT INFO: ID #: [id number] : [birth year] (74 y rs) Name: GALE NUNEZ Visit Date: 2019 02:14 pm PERFORMED BY: Performed By: Néstor Hay RDMS Attending: Aranza Pizano MD Referred By: BUCK NORMAN Location: [facility] SERVICE(S) PROVIDED: URETRO - Retroperitoneal Complete - [facility] [id number] INDICATIONS: Eval for hydronephrosis after stent pul [...] t he number below. 2: 33 PM Aranza Pizano, Staff Physician Electronically Signed Final Report 11/08 02:40 pm Buck Norman MD IM US GEN ORDERABLES (ABNORMAL) POCT Glucose (09/02/2019 11:15 AM EST) P athologist Signature POC Glucose 211 (H) 65 - 199 [facility] mg/dL [facility] Comment: Supplemental ranges: <140 mg/dL before meals <180 mg/dL all other times of the day Specimen Anatomical Collection Method Collection Time Receive d Time (Source) Location / / Volume Laterality Blood specimen 09/02/2019 11:15 9 (specimen) AM EST 11:15 AM EST Buck Norman MD POINT OF CARE TEST ORDERABLE S Performing Organization Address City/State/[place] [address] [facility] [address] XR Fluoro No Rad <1Hr - OR Use (09/02/2019 10:45 AM EST) Specimen (Source) Anatomical Location Collection Method / Collectio n Time Received Time / Laterality Volume Narrative RANJAN RAD - 09/02/2019 10:45 AM EST This exam is auto-finalizing. No interpr etation was done. Buck Norman MD IMG FLUORO ORDERABLES Performing Organization Address City/[facility]/ZIP Code Phon e Number RAD DH RAD [place], [place] Kidney Stone Analysis (09/02/2019 10:40 AM EST) [facility] Method Time Signature Kidney Stone SAMANTA Analysis Test ?Result ? Flag ??Unit ??RefValue [facility] OCK [facility] Kidney Stone Analysis [facility] ??Source: ? Left [facility] ??Interpretation ?100% Uric acid ?Test Performed by: ?[facility] ?[address] [id number] ?Meat Cutting Teacher: Charles Garay M.D. Ph.D.; CLIA# [id number] Specimen Anatomical Collection Method Collection Time Receive d Time (Source) Location / / Volume Laterality Calculus 09/02/2019 10:40 09/02/2019 4:30 specimen AM EST PM EST (specimen) Resulting Agency Comment Spec In Lab Buck Norman MD BODY FLUIDS AND STOOLS ORDER KEKE Performing Organization Address City/State/[place] [address] (ABNORMAL) POCT Glucose (09/02/2019 10:08 AM EST) athologist Signature POC Glucose 201 (H) 65 - 199 [facility] mg/dL [facility] Comment: Supplemental ranges: <140 mg/dL before meals <180 mg/dL all other times of the day Specimen Anatomical Collection Method Collection Time Receive d Time (Source) Location / / Volume Laterality Blood specimen 09/02/2019 10:08 9 (specimen) AM EST 10:08 AM EST Buck Norman MD POINT OF CARE TEST ORDERABLE S Performing Organization Address City/State/[place] [address] POCT Glucose (09/02/2019 7:56 AM EST) athologist Signature POC Glucose 165 65 - 199 [facility] mg/dL [facility] Comment: Supplemental ranges: <140 mg/dL before meals <180 mg/dL all other times of the day Specimen Anatomical Collection Method Collection Time Receive d Time (Source) Location / / Volume Laterality Blood specimen 09/02/2019 7:56 AM 019 7:56 (specimen) EST AM EST Buck Norman MD POINT OF CARE TEST ORDERABLE S Performing Organization Address City/State/[place] [address] documented in this encounter Visit Diagnoses Not [...] for breakthrough pain., PACU Recovery, Ro utine iohexol (OMNIPAQUE) 300 mg/mL Given 09/02/2019 9:12 AM EST 300 m g 19- Surgical Site solution ONCE PRN, Starting on Thu09/02/19 at 0912, Until Thu09/02/19 at 1419, Intra-Operative (Intra-Procedure), Routine lactated ringers infusion New Bag 09/02/2019 8:11 [...] Provider: Pola Salinas CRNA) 400 mg, Intravenous, COURT OPERATIONS CLERK TO O.R., 1 dose, Thu09/02/19 at 0800, [...] Routine documented in this encounter Care Teams Experimental Welder Relationship Specialty Start Date End Date Terri Bowser MD PCP - General Family Medicine 07/02/17 [address] [place] [address] documented as of this encounter
--- OUTSIDE RECORDS SUMMARY | 2022-07-08 09:32 | XMS_ITS | Encounter Summary ---
:1945 Author Organization [facility] [place] [address] Care Team Providers Name Role Phone Terri Bowser MD Primary Care Provider Encounter Details Date Type Department Care Team Description 06/06/2020 Notes Only [place] [facility] [place] Maya Navas, [place] [address] Social History Tobacco Use Types Packs/Day Years Used Date Former Smoker Cigarettes 2 10 Quit: 07/19/19 77 Smokeless Tobacco: Never Used Alcohol Use Standard Drinks/Week Comments No 0 (1 standard drink = 0.6 oz pure alcoho l) Sex Assigned at Date Recorded Not on file documented as of this encounter Progress Notes Maay James RD - 06/06/2020 2:50 PM EDT Nutrition Intervention for the Management of Kidney Stone Disease Assessment/Nutrition Diagnosis: Pt at increased nutritional lithogenic risk related to: - excessive sodium intake - overall diet habitually high for renal acid load - low fruit/vegetable intake - excessive calorie intake resulting in overweight 24-hour Urine Results (mL/24 hours): n/a Estimated body mass index is 33.29 kg/m?? as calculated from the following: Height as of 09/02/19: 157.5 cm (5' 2). Weight as of 09/02/19: 82.6 kg (182 lb). Patient Interview: Pt called for follow up by request of Dr. Ortiz [facility]. Pt has h/o uric acid stones and Dr. Ortiz requested a general dietary review and reduced purine diet. Ms. Kong is a self-reported meat eater and does not consume many fruits and vegetables in her diet. Reviewed very high purine foods and recommended avoidance of these. Also discussed moderate purine foods and recommended portion sizes for protein intake. Patient would benefit fromincreasing fruits, vegetables and other plant- based foods in her diet and reducing intake of animal proteins. Typical Dietary Intake: B: usually comoran yogurt with blueberries, twice a week has eggs, ibanez and sourdough toast L: usually skips lunch D: Meals On Wheels dinner (I.e. 3 oz chicken, noodles, vegetable) Snacks/beverages: PB + Fluff of PB + J sandwich Vitamins/supplements: drinks 3 quarts of water daily - Based on reported fluid intake, patient consuming approximately ~3 L/day Goal is to consume approximately 2-3 L/day Will monitor fluid intake at next encounter. Intervention: - Discussed modification of amount of meat/day (0.8 g/kg) - Provided diet education materials on low purine diet and sample meal plan for kidney stone prevention - mailed to patient per patient request. Monitor/Evaluate: 1) Pt will decrease intake of purine foods and increase intake of fruits, vegetables and whole grains. 2) Follow up 24 hour urine analysis will show progress towards meeting goals MAYA JAMES RD documented in this encounter Plan of Treatment Upcoming Encounters Date Type Specialty Care Team Description 02/26/2023 Office Visit Rheumatology Toño Rodriguez PA [facility] [address] [place], [place] [address] (Wo rk) documented as of this encounter Goals Goal Patient Goal Associated Recent Patient-Stated? Author Type Problems Progress DH Home Medication Patient No O'Rour ke, Compliance and Facing Rachael Resendiz, Understanding Action Plan [facility] Note: Formatting of this note might be d ifferent from the original. Patient's goal is to decrease pain by 50 % over the next 6 months (current pain 7 out of 10, would like to get down to 3) documented as of this encounter Visit Diagnoses Not on filedocumented in this encounter Care Teams Air Boatswain Relationship Specialty Start Date End Date Terri Bowser MD PCP - General Family Medicine 07/02/17 [address] [place] [address] documented as of this encounter
--- OUTSIDE RECORDS SUMMARY | 2022-07-08 09:32 | XMS_ITS | Encounter Summary ---
:1945 Author Organization [facility] [place] [address] Care Team Providers Name Role Phone Terri Bowser MD Primary Care Provider Encounter Details Date Type Department Care Team Description 08/09/2019 Clinical [place] [address] Social History Tobacco Use Types Packs/Day Years Used Date Former Smoker Cigarettes 2 10 Quit: 07/19/19 77 Smokeless Tobacco: Never Used Alcohol Use Standard Drinks/Week Comments No 0 (1 standard drink = 0.6 oz pure alcoho l) Sex Assigned at Date Recorded Not on file documented as of this encounter Last Filed Vital Signs Vital Sign Reading Time Taken Comments Blood Pressure 119/54 08/09/2019 2:29 PM EDT RUE Pulse 84 08/09/2019 2:29 PM EDT Temperature - - Respiratory Rate - - Oxygen Saturation 98% 08/09/2019 1:01 PM EDT Inhaled Oxygen Concentration - - Weight 82.6 kg (182 lb) 08/09/2019 1:01 PM EDT Height 157.5 cm (5' 2) 08/09/2019 1:01 PM EDT Body Mass Index 33.29 08/09/2019 1:01 PM EDT documented in this encounter Progress Notes Liz Lewis, RN - 08/09/2019 1:20 PM EDT .n documented in this encounter Plan of Treatment Upcoming Encounters Date Type Specialty Care Team Description 02/26/2023 Office Visit Rheumatology Toño Rodriguez PA [facility] ER DR RHEUMATOLOGY [place], [place] [address] (Wo rk) documented as of this encounter Goals Goal Patient Goal Associated Recent Patient-Stated? Author Type Problems Progress DH Home Medication Patient No O'Rour ke, Compliance and Facing Rachael Resendiz, Understanding Action Plan [facility] Note: Formatting of this note might be d ifferent from the original. Patient's goal is to decrease pain by 50 % over the next 6 months (current pain 7 out of 10, would like to get down to 3) documented as of this encounter Visit Diagnoses Not on filedocumented in this encounter Care Teams Lacing Presser Relationship Specialty Start Date End Date Terri Bowser MD PCP - General Family Medicine 07/02/17 [address] [place] [address] documented as of this encounter
--- OUTSIDE RECORDS SUMMARY | 2022-07-08 09:32 | XMS_ITS | Encounter Summary ---
:1945 Author Organization [facility] [place] [address] Care Team Providers Name Role Phone Terri Bowser MD Primary Care Provider Reason for Visit Reason Comments Follow-up Nephrolithiasis Encounter Details Date Type Department Care Team Description 11/08/2019 Office Visit Urology at [facility] Buck Norman Congenital multiple renal cy sts (Primary Dx); [facility] MD [place] Calculus of kidney with calculus [place] [address] UROLOGY DEPT [phone] [place], [place] [address] Social History Tobacco Use Types [...] Sign Reading Time Taken Comments Blood Pressure 146/75 11/08/2019 2:46 PM EST Pulse 82 11/08/2019 2:46 PM EST Temperature 36.7 ??C (98.1 ??F) 11/08/2019 2:46 PM EST Respiratory Rate - - Oxygen Saturation - - Inhaled Oxygen Concentration - - Weight - - Height - - Body Mass Index - - documented in this encounter Progress Notes Buck Norman MD - 11/08/2019 3:00 PM EST UROLOGY NOTE Mrs Nunez is here as a scheduled follow up s/p left ureteroscopy with LL. Stone was 100% uric acid.She has done well since last visit and has no flank pain or hematuria. She underwent a follow up renal u/s today which showed a new left renal stone and right complex renal cysts. Past Medical History: Diagnosis Date ??? Amblyopia [...] weekly x 10 years ??? Kidney failure [facility] admission for L kidney failure; stent placed [...] 8) performed by Buck Norman MD at [facility] OR ??? PRO CYSTOSCOPY, INSERT URETERAL STENT Left 07/21/2019 CYSTO, STENT PLACEMENT (WRVU 2.82) performed by Lupillo Bhatia MD at [facility] OR ??? PRO CYSTOSCOPY, INSERT URETERAL STENT N/A 09/02/2019 CYSTO, STENT PLACEMENT (WRVU 2.82) performed by Buck Norman MD at [facility] OR ??? PRO CYSTOSCOPY, REMV CALCULUS, SIMPLE N/A 09/02/2019 CYSTO, REMOVAL OF STENT, FOREIGN BODY OR CALCULUS, SIMPLE (WRVU 2.81) performed by Buck Norman MD at [facility] OR ??? PRO CYSTOURETHROSCOPY, URETER CATHETER N/A 09/02/2019 CYSTO, RETROGRADE, URETEROPYELOGRAPHY (WRVU 2.37) [facility] Social History Socioeconomic History ??? Marital status: Spouse name: None ??? Number of children: None ??? Years of education: None ??? Highest education level: None Occupational History ??? None Social Needs ??? Financial resource strain: None ??? Food insecurity Worry: None Inability: None ??? Transportation needs Medical: None Non-medical: None Tobacco Use ??? Smoking status: Former Smoker Packs/day: 2.00 Years: 10.00 Pack years: 20.00 Types: Cigarettes Last attempt to quit: 07/19/1979 Years since quittin.3 ??? Smokeless tobacco: Never Used Substance and Sexual Activity ??? Alcohol use: No ??? Drug use: No ??? Sexual activity: None Comment: deferred Lifestyle ??? Physical activity Days per week: None Minutes per session: None ??? Stress: None Relationships ??? Social connections Talks on phone: None Gets together: None Attends hoahaoism service: None Active member of club or organization: None Attends meetings of clubs or organizations: None Relationship status: None ??? Intimate partner violence Fear of current or ex partner: None Emotionally abused: None Physically abused: None Forced sexual activity: None Other Topics Concern ??? None Social History Narrative ??? None Family History Problem Relation Age of Onset ??? Cancer Daughter ??? Heart Disease Mother ??? Amblyopia Neg Hx ??? Blindness Neg Hx ??? Cataracts Neg Hx ??? Diabetes Neg Hx ??? Glaucoma Neg Hx ??? Hypertension Neg Hx ??? Macular Degeneration Neg Hx ??? Retinal Detachment Neg Hx ??? Strabismus Neg Hx ??? Stroke Neg Hx ??? Thyroid Disease Neg Hx ROS: negative for fever, chills, nausea, vomiting, diarrhea, constipation, hematuria, dysuria, CP, SOB Most Recent Vitals: 11/08/19 1446 BP: 146/75 Pulse: 82 Temp: 36.7 ??C (98.1 ??F) Alert, oriented, nad Renal (Signed Final 11/08/2019 02:40 pm) ?? PATIENT INFO: ID #: [id number] : [birth year] (74 yrs) Name: GALE NUNEZ Visit Date: 11/08/2019 02:14 pm ?? PERFORMED BY: Performed By: Néstor Hay RDMS Attending: Aranza Pizano MD Referred By: BUCK NORMAN Location: [place] ?? SERVICE(S) PROVIDED: URETRO - Retroperitoneal Complete - [id number] ?? INDICATIONS: Eval for hydronephrosis after stent pull appointment ?? COMPARISON: CT scan: AB PEL 07/18/19 ?? RIGHT KIDNEY: Size (cm) L: 14.3 Cortical Thickness: Normal Cortical Echogenicity: Normal Hydronephrosis: No sonographic evidence ?? Comment: Multiple cysts seen largest seen in the inf. pole, complex multisepatted avascular measuring 5.7 x 6.1 x 5.3 cm. No renal calculi seen. ?? LEFT KIDNEY: Size (cm) L: 11.1 Cortical Thickness: Normal Cortical Echogenicity: Normal Hydronephrosis: No sonographic evidence ?? Comment: Two nonobstructing renal calculi seen largest seen in the inf pole measuring 13 mm. ?? URINARY BLADDER: Pre-void (cm) L: 5.0 AP: 7.3 TV: 7.1 Vol (ml): 135.7 ?? Comment: Partially distended, normal contour ?? IMPRESSION 2 new LEFT renal calculi since patient's CT scan from 07/01/2019. The largest is in the lower pole and measures 13 mm. No hydronephrosis ?? 2 complex cysts in the RIGHT kidney. There is a 6 cm cyst with thick septations and some calcifications on the septations although no vascularity in the lower pole and a 1.6 cm multiloculated cyst in the upper pole. Follow-up imaging of these cysts in 6 months is recommended. No right- sided calculi AP: Right complex renal cysts. I discussed the findings with the patient and recommended a f/u renal u/sin 6 months. Recurrent left nephrolithiasis. She has an appointment in the metabolic stone clinic to discuss management options. I have recommended that she discontinues vitamin C, increases hydration and starts urocit K. 17 minutes of this 20 minutes encounter was spent in counseling and coordination of care documented in this encounter Plan of Treatment Upcoming Encounters Date Type Specialty Care Team Description 02/26/2023 Office Visit Rheumatology Toño Rodriguez PA [facility] ER DR [place]Y [place], [place] [address] (Wo rk) documented as of this encounter Goals Goal Patient Goal Associated Recent Patient-Stated? Author Type Problems Progress DH Home Medication Patient No O'Rour ke, Compliance and Facing Rachael Resendiz, Understanding Action Plan [facility] Note: Formatting of this note might be d ifferent from the original. Patient's goal is to decrease pain by 50 % over the next 6 months (current pain 7 out of 10, would like to get down to 3) documented as of this encounter Procedures Procedure Name Priority Date/Time Associated Comments Diagnosis HC URINALYSIS Routine 11/08/2019 3:17 PM Calculus of kidney Re sults for this ROUTINE EST with calculus of procedure a re in ureter the results section. documented in this encounter Results US Retroperitoneal Complete (05/09/2020 11:53 AM EDT) Anatomical Region Laterality Modality Abdomen Ultrasound Specimen (Source) Anatomical Collection Method Collection Time Re ceived Time Location / / Volume Laterality 05/09/2020 11:46 AM EDT Impressions 05/09/2020 12:14 PM EDT Comparison ultrasound 11/08/2019 1. ??Multiple septated cysts within the right kidney. Slight increase in size of 6.5 x 5.9 x 5.7 cm complex right lower pole cyst with calcified avascular septations, previously 5.7 x 6.1 x 5.3 cm 2. ??Two nonobstructing calculi within the left kidney, larger measuring 7 mm within the lower pole. 3. ??Normal contour of the partially di stended bladder. I have personally reviewed the image(s) and the resident's interpretation and agree with the findings, Angelica Wood at 05/09/2020 12:07 PM Thank you for letting us participate in the care of this patient. For questions regarding this report, please contact t carolyn number below. Electronically signed by: Jade Grimaldo [facility] ([phone]), at 05/09/2020 12 :07 PM ?Angelica Wood, [facility] Chief Electronically Signed Final Report ?? 12:13 pm Narrative 05/09/2020 12:14 PM EDT Renal ? (Signed Final 05/09/2020 12:13 pm) PATIENT INFO: ID #: ? [id number] ?: ??[birth year] (75 yrs)(F) Name: ? GALE NUNEZ ? Visit Date: 05/09/2020 11:46 am PERFORMED BY: Performed By: ? Dianna Logan RDMS Attending: ?Israel NANCE, Angelica Dodd Resident: ? Wesley NANCE, Layla Dawkins Referred By: ?BUCK NORMAN Location: ? [place] SERVICE(S) PROVIDED: ??URETRO - Retroperitoneal Complete - I [id number] ? [id number] INDICATIONS: ??complex renal cysts COMPARISON: 11/08/2019 RIGHT KIDNEY: Size (cm) ?L: ??12.9 Cortical Thickness: ?Normal Cortical Echogenicity: ?? Normal Hydronephrosis: ?No sonogr aphic evidence Comment: ?Multiple cysts, largest i s multiseptated avascular in ? lower pole measuring 5.7 x 5.9 x 6.5 cm. LEFT KIDNEY: Size (cm) ?L: ??11.4 Cortical Thickness: ?Normal Cortical Echogenicity: ?? Normal Hydronephrosis: ?No sonogr aphic evidence Comment: ?Two calculi, largest in l ower pole is 9 mm. URINARY BLADDER: Pre-void (cm) ? L: ??2.0 ? A P: ??5.9 ? TV: ??6.0 Vol (ml): ?37.1 Comment: ?Partially distended, norm al contour Procedure Note Angelica Wood MD - 05/09/2020 Renal (Signed Final 05/09/2020 12:13 pm ) PATIENT INFO: ID #: [id number] : [birth year] (75 y rs)(F) Name: GALE NUNEZ Visit Date: 2019 11:46 am PERFORMED BY: Performed By: Dianna Logan RDMS Attending: Angelica Wood MD Resident: Layla Olson MD Referred By: BUCK NORMAN Location: [place] SERVICE(S) PROVIDED: URETRO - Retroperitoneal Complete - [id number] INDICATIONS: complex renal cysts COMPARISON: US 11/08/2019 RIGHT KIDNEY: Size (cm) L: 12.9 Cortical Thickness: Normal Cortical Echogenicity: Normal Hydronephrosis: No sonographic evidence Comment: Multiple cysts, largest is mul tiseptated avascular in lower pole measuring 5.7 x 5.9 x 6.5 cm . LEFT KIDNEY: Size (cm) L: 11.4 Cortical Thickness: Normal Cortical Echogenicity: Normal Hydronephrosis: No sonographic evidence Comment: Two calculi, largest in lower pole is 9 mm. URINARY BLADDER: Pre-void (cm) L: 2.0 AP: 5.9 TV: 6.0 Vol (ml): 37.1 Comment: Partially distended, normal co ntour IMPRESSION Comparison ultrasound 11/08/2019 1. Multiple septated cysts within the r ight kidney. Slight increase in size of 6.5 x 5.9 x 5.7 cm complex right lower pole cyst with calcified avascular septations, previously 5.7 x 6.1 x 5.3 cm 2. Two nonobstructing calculi within th e left kidney, larger measuring 7 mm within the lower pole. 3. Normal contour of the partially dist ended bladder. I have personally reviewed the image(s) and the resident's interpretation and agree with the findings, Angelica Wood at 05/09/2020 12:07 PM Thank you for letting us participate in the care of this patient. For questions regarding this report, please contact t he number below. Electronically signed by: Jade Grimaldo [facility] ([phone]), at 05/09/2020 12 :07 PM Angelica Wood, Combining Machine Operator Electronically Signed Final Report 05/09 12:13 pm Buck Norman MD IMG US GEN ORDERABLES _Urinalysis with microscopic (11/08/2019 3:17 PM EST) [facility] Method Time Signature Glucose UA Negative Negative [facility] mg/dL [facility] Protein UA Negative Negative [facility] mg/dL [facility] Bilirubin UA Negative Negative [facility] mg/dL [facility] Comment: Clinical correlation required for positi ve Urine Bilirubin results as false positive may occur with some drugs and d rug related products. If a false positive is suspected a serum total bili joseph should be considered if clinically indicated. Urobilinogen UA Normal Normal mg/dL [facility] pH UA 6.5 5.0 - 8.0 [facility] Blood UA Negative Negative mg/dL [facility] Ketones UA Negative Negative mg/dL [facility] Nitrite UA Negative Negative [facility] Leukocytes UA Negative Negative [facility] Appearance UA Clear Clear [facility] Spec [place] UA 1.016 1.002 - 1.030 [facility] Color UA Yellow Yellow [facility] RBC UA 0 0 - 4 /HPF [facility] WBC UA 0 0 - 5 /HPF [facility] Squam Epith UA 2 <=4 /HPF [facility] Hyaline Cast UA 1 0 - 2 /LPF [facility] Specimen Anatomical Collection Method Collection Time Receive d Time (Source) Location / / Volume Laterality Urine specimen 11/08/2019 3:17 PM 020 4:19 (specimen) EST PM EST Resulting Agency Comment Spec In Lab Buck Norman MD URINE ORDERABLES Performing Organization Address City/State/[place] [address] documented in this encounter Visit Diagnoses Diagnosis 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
--- OUTSIDE RECORDS SUMMARY | 2022-07-08 09:32 | XMS_ITS | Encounter Summary ---
:1945 Author Organization [facility] [place] [address] Care Team Providers Name Role Phone Terri Bowser MD Primary Care Provider Encounter Details Date Type Department Care Team Description 09/19/2019 Specialty Pharmacy Pharmacy at [facility] [place] [address] Social History Tobacco Use Types Packs/Day [...] 02/26/2023 Office Visit Rheumatology Toño Rodriguez PA [facility] [address] MUNOZ [place], [place] [address] (Wo rk) documented as of [...] on filedocumented in this encounter Care Teams Accountant Bookkeeper Relationship Specialty Start Date End Date Terri Bowser MD PCP - General Family Medicine 07/02/17 [address] [place] [address] documented as of this encounter
--- OUTSIDE RECORDS SUMMARY | 2022-07-08 09:32 | XMS_ITS | Encounter Summary ---
:1945 Author Organization [facility] [place] [address] Care Team Providers Name Role Phone Terri Bowser MD Primary Care Provider Encounter Details Date Type Department Care Team Description 10/30/2020 Hospital Encounter Ultrasound at [facility] Gonzalez Ortiz Nephrolithiasis [facility] [place] [address] UROLOGY DEPT. [phone] [place], [place] [address] Social History Tobacco Use Types [...] Sig Dispensed Refills Start Date End Date metoprolol succinate Take 25 mg by mouth [...] for Wheezing. NARCAN 4 mg/actuation 0 06/04/2017 Alloy, Non-Aerosol lidocaine (LIDODERM) 5 Apply 1 patch [...] fluticasone (FLONASE) daily. 0 12/11/2015 50 mcg/actuation Alloy, Suspension polyethylene glycol Take 17 g by [...] 0 10/04 (XOPENEX HFA) 45 mcg/Actuation inhaler potassium citrate SR Take 2 tablets by [...] Office Visit Rheumatology Toño Rodriguez PA [facility] [place]UM[place]Y [place], [place] [address] (Wo rk) documented as of this encounter Goals Goal Patient Goal Associated Recent Patient-Stated? Author Type Problems Progress Home Medication Patient No O'Rour naomy, Compliance and Facing Rachael Resendiz, Understanding Action Plan [facility] Note: Formatting of this note might be d ifferent from the original. Patient's goal is to decrease pain by 50 % over the next 6 months (current pain 7 out of 10, would like to get down to 3) documented as of this encounter Procedures Procedure Name Priority Date/Time Associated Diagnosis Comme nts US RETROPERITONEAL Routine 10/30/2020 1:23 Nephrolithiasis Res ults for this COMPLETE PM EST procedure are i n the results section. documented in this encounter Results US Retroperitoneal Complete (10/30/2020 [...] Electronically signed by: Aranza Pizano MD, [facility] [place] ([phone]), at 09/2021 1:30 PM ? Aranza Pizano, Staff Physician Electronically Signed Final Report ?? 01:38 pm Narrative 10/30/2020 1:38 PM EST Renal ? (Signed Final 10/30/2020 01:38 pm) PATIENT INFO: ID #: ? [id number] ?: ??[birth year] (75 yrs)(F) Name: ? GALE KONG ? Visit Date: 10/30/2020 01:20 pm PERFORMED BY: Performed By: ? Shakira Oliver RDMS Attending: ?Harinder NANCE, Aranza Ontiveros Referred By: ?GONZALEZ ORTIZ JR Location: ? [place] SERVICE(S) PROVIDED: ??URETRO - Retroperitoneal Complete - I [id number] ? [id number] INDICATIONS: ???stone COMPARISON: Ultrasound: 05/09/2020 RIGHT KIDNEY: [...] ?Partially distended, norm al contour Procedure Note Arazna Pizano MD - 10/30/2020Formattin g of this note might be different from the original. Renal (Signed Final 10/30/2020 01:38 pm ) PATIENT INFO: ID #: [id number] : 41 (75 y rs)(F) Name: GALE KONG Visit Date: 2020 01:20 pm PERFORMED BY: Performed By: Shakira Oliver RDMS Attending: Aranza Pizano MD Referred By: GONZALEZ ORTIZ JR Location: [place] SERVICE(S) PROVIDED: URETRO - Retroperitoneal Complete - [facility] [id number] INDICATIONS: ?stone COMPARISON: Ultrasound: 05/09/2020 RIGHT KIDNEY: [...] ultrasounds 2. No renal calculi identified in eithe r kidney today. Normal LEFT kidney. No hydronephrosis in either kidney 3. Incomplete imaging of the liver but it appears enlarged Thank you for letting us participate in the care of this patient. For questions regarding this report, please contact t he number below. Electronically signed by: Aranza Pizano MD, [facility] ([phone]), at 09/2021 1:30 PM Aranza Pizano, Staff Physician Electronically Signed Final Report 10/30 01:38 pm Gonzalez Ortiz Jr., MD IMG US GEN ORDERABLES documented in this encounter Visit Diagnoses Diagnosis Nephrolithiasis Calculus of kidney documented in this encounter Care Teams Corrugator Operator Helper Relationship Specialty Start Date End Date Terri Bowser MD PCP - General Family Medicine 07/02/17 [address] [place] [address] documented as of this encounter
--- OUTSIDE RECORDS SUMMARY | 2022-07-08 09:32 | XMS_ITS | Encounter Summary ---
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 Please evaluate Alexis Weber Jillian R, [facility] MD [facility] D r [place] [address] [place] [address] Fax: Referral ID Status Reason Start Date Expiration Date Visits V isits Requested Authorized [id number] Closed Specialty 05/04/2019 05/03/2020 1 1 Service Requested Encounter Details Date Type Department Care Team Description 02/08/2020 TH Visit Medical Genetics at Gladys Espinoza Vi sion loss (TeleHealth) [facility] [address] [place] [address] PEDIATRICS DEPT. [phone] [place] [address] (Wo rk) Social History Tobacco Use Types Packs/Day Years Used Date Former Smoker Cigarettes 2 10 Quit: 07/19/19 77 Smokeless Tobacco: Never Used Alcohol Use Standard Drinks/Week Comments No 0 (1 standard drink = 0.6 oz pure alcoho l) Sex Assigned at Date Recorded Not on file documented as of this encounter Progress Notes Gladys Espinoza, [facility] - 02/08/2020 9:00 AM EDT Francisca was seen for genetic counseling on 02/08/2020. Francisca has a history of vision issues that she has been followed by [facility], Dr. Weber. She initially noted vision loss in her late 40's. She reported that her vision loss has been progressive and is experiencing diminished color vision, night vision and sharpness. 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 Exam was negative for signs of AMD. Ophthalmology recommended a genetic evaluation to review the genetic testing options . A three generation pedigree was obtained at the visit today. The family history was negative for significant vision issues. She has two children who had ALS(paternally inherited per her report) and a son with myotonic dystrophy. Her parents were known to be cousins(shared great-grandparent) The retinal dystrophies are a clinically and genetically heterogeneous group of eye disorders affecting approximately 1 in 3000 to 1 in 4000 people worldwide. Retinal dystrophies are characterized by degeneration of different cell types within the retina. In general, retinal dystrophies are classifiedaccording to the types of cells within the retina that are primarily affected, the age of onset of first symptoms, the progression of visual impairment over time, and the presence or absence of other medical features. There are a variety of hereditary retinal dystrophies, some of which are very rare. Common hereditary retinal dystrophies include retinitis pigmentosa, choroideremia, Lorne congenital am aurosis, cone-penelope dystrophy, and juvenile macular degeneration.The hallmark is a loss of visual acuity. These conditions are a major cause of severe sight impairment and affect patients at all ages. The timing, progression, and range of symptoms of retinal dystrophy can differ from person to person, depending upon which types of retinal cells are predominantly or initially affected. Some types of retinal dystrophy may be congenital, while others may be later onset, and some may be static, while manyothers are associated with a progressive visual decline. Some types of retinal dystrophy, known as non-syndromic retinal dystrophy, only cause problems with vision. Other types of retinal dystrophy, known as syndromic retinal dystrophy, involve the presence of other medical or developmental issues. Hereditary retinal dystrophies are a broad group of genetic retinal disorders of varying severity and with differing inheritance patterns. Hundreds of genes have been identified that can cause retinal dystrophy. The inheritance pattern of retinal dystrophy can be autosomal dominant, autosomal recessive, X-linked, or mitochondrial. Variants in a single gene may be associated with different types of retinal dystrophy, and conversely, variants in different genes can cause the same retinal dystrophy phenotype. Incomplete penetrance and/or variable expressivity have been reported in many types of retinal dystrophy. In some cases, individuals with retinal dystrophy may harbor a de lashawn variant not inherited from either parent. Due to the heterogeneous nature of retinal dystrophies, it can often be challenging to determine the specific form of retinal dystrophy or predict the disease-causing gene basedon clinical and family histories, physical examination, or ancillary testing alone. Ongoing genetic research continues to change the understanding of pathophysiology as new genes are discovered. 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 I reviewed the available genetic testing options including the benefits, risks and limitations of testing. We also reviewed the possible re sults including positive, negative and a variant of uncertain significance. A negative result would not exclude the possibility that the condition in this family is genetic. I also explained that genetic testing is available for individuals suspected of having inherited retinal disease through a sponsored program through [employer]. The testing includes a broad genetic testing panel of approximately 250genes associated with inherited retinal dystrophies. Genetic testing is also available through self pay and insurance, although her insurance is unlikely to cover genetic testing. After our discussion Francisca elected genetic testing through the sponsored research program and agreed to allow her medical i nformation to be shared as required by the sponsored program. We emailed her a consent form today tosign and then return so we can proceed with testing. Once we receive the consent form we will send her a saliva kit to complete the testing. I willcontact her when the results are available in approximately 4-6 weeks. Gladys Espinoza MS, [facility] Licensed Genetic Counselor Patient/guardian consents to telehealth visit Yes Patient/guardian is current in the state of [place] or [place] Yes Patient/Guardian Email: [email or web address] Patient/guardian consents to receiving consent forms by email: Yes documented in this encounter Plan of Treatment Upcoming Encounters Date Type Specialty Care Team Description 02/26/2023 Office Visit Rheumatology Toño Rodriguez PA [facility] RHEUMATOLOGY [place], [place] [address] (Wo rk) Scheduled Referrals Name Type Priority Associated Diagnoses Order S chedule Referral to Outpatient Referral Routine Cone dystrophy Ordere d: Genetics 05/04/2019 documented as of this encounter Goals Goal [...] loss documented in this encounter Care Teams Mgmt Consultant Relationship Specialty Start Date End Date Terri Bowser MD PCP - General Family Medicine 07/02/17 [address] [place] [address] documented as of this encounter
--- OUTSIDE RECORDS SUMMARY | 2022-07-08 09:32 | XMS_ITS | Encounter Summary ---
:1945 Author Organization [facility] [place] [address] Care Team Providers Name Role Phone Terri Bowser MD Primary Care Provider Encounter Details Date Type Department Care Team Description 05/09/2020 Hospital Encounter Ultrasound at [facility] Sverrisson, Congenital multiple [facility] Buck Stoner MD renal cysts [facility] [address] UROLOGY DEPT [phone] [place] [address] Social History Tobacco Use Types Packs/Day Years Used Date Former Smoker Cigarettes 2 10 Quit: 07/19/19 77 Smokeless Tobacco: Never Used Alcohol Use Standard Drinks/Week Comments No 0 (1 standard drink = 0.6 oz pure alcoho l) Sex Assigned at Date Recorded Not on file documented as of this encounter Medications at Time of Discharge Medication Sig Dispensed Refills Start Date End Date cycloSPORINE 1 drop 2 times daily. 0 [...] for Wheezing. NARCAN 4 mg/actuation 0 06/04/2017 [place], Non-Aerosol lidocaine (LIDODERM) 5 Apply 1 patch [...] fluticasone (FLONASE) daily. 0 12/11/2015 50 mcg/actuation [place], Suspension polyethylene glycol Take 17 g by [...] SR Take 2 tablets by 120 tablet 3 03/21/20 20 08/03/2020 (Urocit) 10 mEq (1,080 mouth 2 times daily. mg) Tablet Sustained ReleaseIndications: Kidney stones Custom medication 1 each. 0 020 predniSONE (DELTASONE) Take by mouth 9mg per 150 tablet 1 05/29/2020 1 mg Tablet day and decrease by 1mg every 2 weeks until you are at 5mg daily. Take along with 5mg tablets to complete taper. adalimumab (HUMIRA,CF, Inject 0.4 mLs 2 kit 3 9 05/29/2020 PEN) 40 mg/0.4 mL Pen subcutaneously every Injector Kit 14 days. metFORMIN (GLUCOPHAGE) Take 500 mg by mouth [...] Office Visit Rheumatology Toño Rodriguez PA [facility] [address] [place], [place] [address] (Wo rk) documented as of this encounter Goals Goal Patient Goal Associated Recent Patient-Stated? Author Type Problems Progress DH Home Medication Patient No O'Errol moralez, Compliance and Facing Rachael Resendiz, Understanding Action Plan [facility] Note: Formatting of this note might be d ifferent from the original. Patient's goal is to decrease pain by 50 % over the next 6 months (current pain 7 out of 10, would like to get down to 3) documented as of this encounter Procedures Procedure Name Priority Date/Time Associated Comments Diagnosis US RETROPERITONEAL Routine 05/09/2020 11:53 Congenital Resul ts for this COMPLETE AM EDT multiple renal procedure are in cysts the results section. documented in this encounter [...] report, please contact t carolyn number below. 12 :07 PM ?Angelica Wood, Sect ion Chief Electronically Signed Final Report ?? 12:13 pm Narrative 05/09/2020 12:14 PM EDT Renal ? (Signed Final 05/09/2020 12:13 pm) PATIENT INFO: ID #: ? [id number] ?: ??[birth year] (75 yrs)(F) Name: ? GALE NUNEZ ? Visit Date: 05/09/2020 11:46 am PERFORMED BY: Performed By: ? Dianna Logan RDMS Attending: ?Israel NANCE, Angelica Dodd Resident: ? Wesley NANCE, Layla Dawkins Referred By: ?BUCK NORMAN Location: ? [place] SERVICE(S) PROVIDED: ??URETRO - Retroperitoneal Complete - I [id number] ? [id number] INDICATIONS: ??complex renal cysts COMPARISON: US 11/08/2019 RIGHT KIDNEY: Size (cm) ?L: ??12.9 [...] 12:13 pm ) PATIENT INFO: ID #: [id number] : [birth year] (75 y rs)(F) Name: GALE NUNEZ Visit Date: 2019 11:46 am PERFORMED BY: Performed By: Dianna Logan RDMS Attending: Angelica Wood MD Resident: Layla Olson MD Referred By: BUCK NORMAN Location: [place] SERVICE(S) PROVIDED: URETRO - Retroperitoneal Complete - [facility] [id number] INDICATIONS: complex renal cysts COMPARISON: US 11/08/2019 [...] report, please contact t carolyn number below. 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
--- OUTSIDE RECORDS SUMMARY | 2022-07-08 09:32 | XMS_ITS | Encounter Summary ---
:1945 Author Organization [facility] [place] [address] Care Team Providers Name Role Phone Terri Bowser MD Primary Care Provider Reason for Visit Reason Onset Date Comments Medication Refill 08/03/2020 Encounter Details Date Type Department Care Team Description 08/03/2020 Refill Urology at [facility] Reinaldo Norman MD Kidney stones [facility] [place] [address] UROLOGY DEPT [phone] [place], [place] [address] (Wo rk) Social History Tobacco [...] 02/26/2023 Office Visit Rheumatology Toño Rodriguez PA [facility] [address] [place] [address] (Wo rk) documented as of [...] kidney documented in this encounter Care Teams Sheet Metal Production Worker Relationship Specialty Start Date End Date Terri Bowser MD PCP - General Family Medicine 07/02/17 [address] [place] [address] documented as of this encounter
--- OUTSIDE RECORDS SUMMARY | 2022-07-08 09:32 | XMS_ITS | Encounter Summary ---
:1945 Author Organization [facility] [place] [address] Care Team Providers Name Role Phone Terri Bowser MD Primary Care Provider Encounter Details Date Type Department Care Team Description 11/08/2019 Hospital Encounter Ultrasound [place] [facility] Buck Norman Nephrolithiasis [facility] [place] [address] UROLOGY DEPT [phone] [place], [place] [address] Social History Tobacco Use Types [...] Sig Dispensed Refills Start Date End Date ammonium lactate 0 11/02/2019 (LAC-HYDRIN) 12 % [...] for Wheezing. NARCAN 4 mg/actuation 0 06/04/2017 [place], Non-Aerosol lidocaine (LIDODERM) 5 Apply 1 patch [...] fluticasone (FLONASE) daily. 0 12/11/2015 50 mcg/actuation [place], Suspension polyethylene glycol Take 17 g by [...] potassium citrate SR Take 2 tablets by 60 tablet 3 11/08/19 20 11/17/2019 (Urocit-K 10) 10 mEq mouth 2 times daily. (1,080 mg) Tablet Sustained Release Custom medication 1 each. 0 020 predniSONE [...] Toño Rodriguez, AISHA [facility] [address] [place] [address] (Wo rk) documented as of this encounter Goals Goal Patient Goal Associated Recent Patient-Stated? Author Type Problems Progress Home Medication Patient No O'Dericr naomy, Compliance [...] Associated Diagnosis Comme nts US RETROPERITONEAL Routine 11/08/2019 2:14 Nephrolithiasis Res ults for this COMPLETE PM [...] report, please contact t carolyn number below. 2: 33 PM ? Aranza Pizano, Staff Physician Electronically Signed Final Report ?? 02:40 pm Narrative 11/08/2019 2:41 PM EST Renal ?(Signed Final 11/08/2019 02:40 pm) PATIENT INFO: ID #: ? [id number] ?: ??[birth year] (74 yrs) Name: ? GALE KONG ? Visit Date: 11/08/2019 02:14 pm PERFORMED BY: Performed By: ? Néstor Hay RDMS Attending: ?Harinder NANCE, Aranza Ontiveros Referred By: ?BUCK NORMAN Location: ? [place] SERVICE(S) PROVIDED: ??URETRO - Retroperitoneal Complete - I [id number] ? [id number] INDICATIONS: ??Eval for hydronephrosis after stent p ull ??appointment COMPARISON: CT scan: AB SCOTT 07/18/19 RIGHT KIDNEY: Size (cm) ?L: ??14.3 [...] 02:40 pm ) PATIENT INFO: ID #: [id number] : [birth year] (74 y rs) Name: GALE KONG Visit Date: 2019 02:14 pm PERFORMED BY: Performed By: Néstor Hay RDMS Attending: Aranza Pizano MD Referred By: BUCK NORMAN Location: [place] SERVICE(S) PROVIDED: URETRO - Retroperitoneal Complete - [facility] [address]17 [id number] INDICATIONS: Eval for hydronephrosis after stent pul [...] report, please contact t carolyn number below. 2: 33 PM Aranza Pizano, Staff Physician Electronically Signed Final Report 11/08 02:40 pm Buck Norman MD [facility] GEN ORDERABLES documented in this encounter Visit Diagnoses Diagnosis Nephrolithiasis Calculus of kidney documented in this encounter Care Teams Executive Personal Assistant Relationship Specialty Start Date End Date Terri Bowser MD PCP - General Family Medicine 07/02/17 [address] [place] [address] documented as of this encounter
--- OUTSIDE RECORDS SUMMARY | 2022-07-08 09:32 | XMS_ITS | Encounter Summary ---
:1945 [place] [address] Care Team Providers Name Role Phone Terri Bowser MD Primary Care Provider Encounter Details Date Type Department Care Team Description 07/02/2020 Telephone Medical Genetics at [facility]ene Espinoza [facility] DR Irlanda Milian [place] [address] [place] [address] [phone] (Wo rk) Social History Tobacco Use Types Packs/Day Years Used Date Former Smoker Cigarettes 2 10 Quit: 07/19/19 79 Smokeless Tobacco: Never Used Alcohol Use Standard Drinks/Week Comments No 0 (1 standard drink = 0.6 oz pure alcoho l) Sex Assigned at Date Recorded Not on file documented as of this encounter Miscellaneous Notes Telephone Encounter - Gladys Espinoza [facility] - 07/02/2020 11:01 AM EDT Results reviewed with patient Telephone Encounter - [facility] Esp[facility]za [facility] - 07/02/2020 10:38 AM EDT [facility] Inherited retinal Disorders Panel: Negative This diagnostic test evaluates 293 gene(s) for variants (genetic changes) that are associated with genetic disorders. Diagnostic genetic testing, when combined with family history and other medical results, may provide information to clarify individual risk, support a clinical diagnosis, and assist with the development of a personalized treatment and management strategy. These results do not exclude the possibility of a genetic condition documented in this encounter Plan of Treatment Upcoming Encounters Date Type Specialty Care Team Description 02/26/2023 Office Visit Rheumatology Toño Rodriguez PA [facility] [place], [place] [address] (Wo rk) documented as of this [...] on filedocumented in this encounter Care Teams Employee Service Officer Relationship Specialty Start Date End Date Terri Bowser MD PCP - General Family Medicine 07/02/17 [address] [place] [address] documented as of this encounter
--- OUTSIDE RECORDS SUMMARY | 2022-07-08 09:32 | XMS_ITS | Encounter Summary ---
:1945 Author Organization [facility] [place] [address] Care Team Providers Name Role Phone Terri Bowser MD Primary Care Provider Encounter Details Date Type Department Care Team Description 08/09/2019 Anesthesia Event Same Day at [facility] Víctor Hood [facility] Jade [place] [address] [facility] [phone] ANESTHESIOLOGY D [place], [place] [address] (Wo rk) Anesthesia Record Procedure Summary Procedure Name Responsible Anesthesiologist Anesthesia Start Ti me Anesthesia Stop Time OFFICE VISIT Events No events on file. No medications on file. Agents No agents on file. Blood No blood administrations on file. Lines, Drains, and Airways No LDAs on file. documented in this encounter Social History Tobacco [...] Rodriguez PA [facility] [place], [place] [address] (Wo rk) documented as of this [...] on filedocumented in this encounter Care Teams Gas Or Petroleum Operator Relationship Specialty Start Date End Date Terri Bowser MD PCP - General Family Medicine 07/02/17 [address] [place] [address] documented as of this encounter
--- OUTSIDE RECORDS SUMMARY | 2022-07-08 09:32 | XMS_ITS | Encounter Summary ---
:1945 Author Organization [facility] [address] Care Team Providers Name Role Phone Terri Bowser MD Primary Care Provider Reason for Visit Reason Comments Renal Mass Nephrolithiasis Encounter Details Date Type Department Care Team Description 05/09/2020 Office Visit Urology at [facility] Buck Norman Complex renal cyst [facility] [place] [address] UROLOGY DEPT [place] [address] (Wo rk) Social History Tobacco Use Types [...] Sign Reading Time Taken Comments Blood Pressure 148/76 05/09/2020 1:04 PM EDT Pulse 91 05/09/2020 1:04 PM EDT Temperature - - Respiratory Rate - - Oxygen Saturation - - Inhaled Oxygen Concentration - - Weight - - Height - - Body Mass Index - - documented in this encounter Progress Notes Buck Norman MD - 05/09/2020 1:00 PM EDT UROLOGY NOTE Mrs Nunez is here as a scheduled follow up for right complex renal cysts and uric acid stones. She has done well since last visit and denies any flank pain or hematuria. She underwent a follow up renal u/s today and is here to review the results. Past Medical History: Diagnosis Date ??? Amblyopia [...] weekly x 10 years ??? Kidney failure [facility] admission for L kidney failure; stent [...] OU sx with IOL Dr Kauffman in [facility] ??? CORONARY ANGIOPLASTY WITH STENT PLACEMENT 2007 ??? INTRAVITREAL INJECTION Left 12/26/08 [facility] ??? INTRAVITREAL INJECTION Left 01/23/09 [facility] ??? INTRAVITREAL INJECTION Left 02/27/09 [facility] ??? PRO CYSTO/URETEROSCOPY W/LITHOTRIPSY INC INDWELLING STENT INSERTION N/A 09/02/2019 CYSTOURETEROSCOPY,DIAGNOSTIC,W/ LITHOTRIPSY INC. INSERTION OF INDWELLING URETERAL STENT (WRVU 8) performed by Buck Norman MD at [facility] OR ??? PRO CYSTOSCOPY, INSERT URETERAL STENT Left 07/21/2019 CYSTO, STENT PLACEMENT (WRVU 2.82) performed by Lupillo Bhatia MD at [facility] OR ??? PRO CYSTOSCOPY, INSERT URETERAL STENT N/A 09/02/2019 CYSTO, STENT PLACEMENT (WRVU 2.82) performed by Buck Norman MD at [facility] OR ??? PRO CYSTOSCOPY, REMV CALCULUS, SIMPLE N/A 09/02/2019 CYSTO, REMOVAL OF STENT, FOREIGN BODY OR CALCULUS, SIMPLE (WRVU 2.81) performed by Buck Norman MD at [facility] OR ??? PRO CYSTOURETHROSCOPY, URETER CATHETER N/A 09/02/2019 CYSTO, RETROGRADE, URETEROPYELOGRAPHY (WRVU 2.37) [facility] Social History Socioeconomic History ??? Marital status: [...] on phone: None Gets together: None Attends protestant service: None Active member of club or [...] hematuria, dysuria, CP, SOB Most Recent Vitals: 05/09/20 1304 BP: 148/76 Pulse: 91 Alert, oriented, nad Renal (Signed Final 05/09/2020 12:13 pm) ?? PATIENT INFO: ID #: [id number] : [birth year] (75 yrs)(F) Name: GALE NUNEZ Visit Date: 05/09/2020 11:46 am ?? PERFORMED BY: Performed By: Dianna Logan RDMS Attending: Angelica Wood MD Resident: Layla Olson MD Referred By: BUCK NORMAN Location: [place] ?? SERVICE(S) PROVIDED: URETRO - Retroperitoneal Complete - [id number] ?? INDICATIONS: complex renal cysts ?? COMPARISON: 11/08/2019 ?? RIGHT KIDNEY: Size (cm) L: 12.9 Cortical Thickness: Normal Cortical Echogenicity: Normal Hydronephrosis: No sonographic evidence ?? Comment: Multiple cysts, largest is multiseptated avascular in lower pole measuring 5.7 x 5.9 x 6.5 cm. ?? LEFT KIDNEY: Size (cm) L: 11.4 Cortical Thickness: Normal Cortical Echogenicity: Normal Hydronephrosis: No sonographic evidence ?? Comment: Two calculi, largest in lower pole is 9 mm. ?? URINARY BLADDER: Pre-void (cm) L: 2.0 AP: 5.9 TV: 6.0 Vol (ml): 37.1 ?? Comment: Partially distended, normal contour ?? IMPRESSION ?? Comparison ultrasound 11/08/2019 1. Multiple [...] Normal contour of the partially distended bladder. AP: Right complex renal cysts mildly enlarged compared to last study. I discussed the findings with the patient and recommended a f/u renal u/s in 12 months. Recurrent left nephrolithiasis, stable in size. She [facility] an [facility] to discuss further workup. She will continue Urocit K. 19 minutes of this 20 minutes encounter was spent in counseling and coordination of care documented in this encounter Plan of Treatment Upcoming Encounters Date Type Specialty Care Team Description 02/26/2023 Office Visit Rheumatology Toño Rodriguez PA [facility] [address] [place], [place] [address] (Wo rk) documented as of this encounter Goals Goal Patient Goal Associated Recent Patient-Stated? Author Type Problems Progress Home Medication Patient No O'Errol moralez, Compliance and Facing Rachael T, Understanding Action Plan [facility] Note: Formatting of this note might be d ifferent from the original. Patient's goal is to decrease pain by 50 % over the next 6 months (current pain 7 out of 10, would like to get down to 3) documented as of this encounter Results (ABNORMAL) US Retroperitoneal Complete [...] of this patient. If you are a [facility] er and have any questions regarding this report, please contact the number above. For patients who have ques tions, please contact the [facility] professio nal that requested your imaging first. ? Christa Kang, Staff Physician Electronically Signed Final Report ?? 12:40 pm Narrative 05/20/2021 12:40 PM EDT Renal ? (Signed Final 05/20/2021 12:40 pm) PATIENT INFO: ID #: ? [id number] ?: ??[birth year] (76 yrs)(F) Name: ? GALE Renteria MAYRA ? Visit Date: 05/20/2021 11:37 am PERFORMED BY: Performed By: ? Josh Forbes RDMS Attending: ?Pearl NANCE, Christa Santiago Referred By: ?BUCK NORMAN Location: ? [place] SERVICE(S) PROVIDED: URETRO - Retroperitoneal Complete - [facility] [address] ? [id number] INDICATIONS: right renal cysts and nephrolithiases COMPARISON: [...] gas. 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
--- OUTSIDE RECORDS SUMMARY | 2022-07-08 09:33 | XMS_ITS | Encounter Summary ---
:1945 Author Organization [facility] [place] [address] Care Team Providers Name Role Phone Terri Bowser MD Primary Care Provider Encounter Details Date Type Department Care Team Description 10/01/2017 Office Visit Rhe[facility]ology [place] [facility] Alisha Heredia, Psoriatic arthritis; [facility] STAFF INTERNIST OFFICE BASED ONLY High risk medication use; [facility] MEDICAL termite inspector current use of sys temic steroids; [place], [place] CENTER Wrist swelling, left; [phone] RHEUMATOLOGY Arthritis of carpometacarpal (CMC) joints of both thumbs [phone] [facility] [place] [address] Social History Tobacco Use Types Packs/Day Years Used Date Former Smoker 2 Quit: 07/19/19 77 Smokeless Tobacco: Never Used Alcohol Use Standard Drinks/Week Comments No 0 (1 standard drink = 0.6 oz pure alcoho l) Sex Assigned at Date Recorded Not on file documented as of this encounter Last Filed Vital Signs Vital Sign Reading Time Taken Comments Blood Pressure 122/70 10/01/2017 12:45 PM EST Pulse 89 10/01/2017 12:45 PM EST Temperature - - Respiratory Rate 18 10/01/2017 12:45 PM EST Oxygen Saturation 97% 10/01/2017 12:45 PM EST Inhaled Oxygen Concentration - - Weight 88.9 kg (196 lb) 10/01/2017 12:45 PM EST Height 157.5 cm (5' 2) 10/01/2017 12:45 PM EST Body Mass Index 35.85 10/01/2017 12:45 PM EST documented in this encounter Progress Notes Alisha Heredia, STAFF INTERNIST OFFICE BASED ONLY - 10/01/2017 1:00 PM EST Francisca Kong is a 72 y.o. female seen for ongoing evaluation and management of psoriatic arthritis. She is unaccompanied. INTERVAL HISTORY: Reports Enbrel is working. No difficulty with self- administration. Swelling seems gone. Duration of therapy is 3 months. However, more pain in hands, wrists (L>R), elbows, knees.Using tiger balm. New PCP. Trying to taper oxycodone. Acetaminophen 1000 mg po TID, with modest benefit for hand and wrist pain. Spine Center referral later today. Ongoing calcium and vitamin D dietary intake and supplementation. Continues cardiac rehab -> riding bike, doing upper extremity rehab. (+) psoriasis rash at elbows,(-) oral ulcers, dry mouth, painful or difficult swallowing. Ongoing calcium through diet, vitamin D supplementation per PCP. Periodic eye exam -> local site q 6 months, annual. No recent or recurrent illness or infection. No other changes in medical, surgical, or social history. Is up to date on routine health maintenance and screening exams. PHYSICAL EXAMINATION: Vitals: 10/01/17 1245 BP: 122/70 Pulse: 89 Resp: 18 SpO2: 97% Weight: 88.9 kg (196 lb) Height: 157.5 cm (5' 2) Constitutional: Pleasant female sitting comfortably. HEENT: Normocephalic; (-) scleral injection, oral mucous membranes moist and intact. (-) lymphadenopathy (-) thyromegaly (-) parotid or submandibular gland enlargement CHEST: Heart RRR, (-) murmur or extra sounds. Lungs: (-) wheezing, rales or rhonchi. Neuro: Gait forward-bending; even and co-ordinated with use of a cane; speech clearly articulated. CN II-XII grossly intact. Musculoskeletal: Muscle mass bilaterally symmetric. Joint exam: Neck: ROM functional, limited in bilateral flexion/rotation. (+) tender at R SI joint spine. FROM at bilateral upper and lower extremity peripheral joints. (+) tender L wrists and tea CMC joints; (+) synovitis at left wrist, (-) erythema or warmth. Skin: Warm, dry; (-) telangiectasias; (-) ulcers; (-) nail pitting;(-) bruising ASSESSMENT : Psoriatic arthritis, responsive to steroid; chronic steroid use; Fibromyalgia; swelling, LEFT wrist; osteoarthritis multiple joints; CMC pain . PLAN/RECOMMENDATIONS: ?? Consider Cymbalta -> indication OA, FMS -> low dose initially -> 20 mg -> will discuss plan w/PCP prior to initiation ?? Enbrel 50 mg sc weekly, syrnge (ADM) without adverse AE, (-) difficulty with ADM. ?? Prednisone taper by 0.5 mg 11/02th of the month. ?? Referral - Spine Center -> appointment today. ?? Ongoing calcium and vitamin D dietary intake and supplementation. ?? Labs pending (OSH). ?? Follow up in 6 weeks, sooner for concerns, questions or increased signs/symptoms. documented in this encounter Plan of Treatment Upcoming Encounters Date Type Specialty Care Team Description 02/26/2023 Office Visit Rheumatology Toño Rodriguez PA [facility] RHEUMATOLOGY [place], [place] [address] (Wo rk) documented as of this encounter Visit Diagnoses Diagnosis Psoriatic arthritis Psoriatic arthropathy High risk medication use Encounter for long-term (current) use of other medications termite inspector current use of systemic steroi ds Encounter for long-term (current) use of steroids Wrist swelling, left Arthritis of carpometacarpal (CMC) joint s of both thumbs documented in this encounter Care Teams Customer Services Manager Relationship Specialty Start Date End Date Terri Bowser MD PCP - General Family Medicine 07/02/17 [address] [place] [address] documented as of this encounter
--- OUTSIDE RECORDS SUMMARY | 2022-07-08 09:33 | XMS_ITS | Encounter Summary ---
:1945 Author Organization [place] [address] Care Team Providers Name Role Phone Jennifer Silva APRN Primary Care Provider Encounter Details Date Type Department Care Team Description 05/21/2017 Telephone Rheumatology at [facility] [place] [address] Social History Tobacco Use Types Packs/Day Years Used Date Former Smoker 2 Quit: 07/19/19 77 Smokeless Tobacco: Never Used Alcohol Use Standard Drinks/Week Comments No 0 (1 standard drink = 0.6 oz pure alcoho l) Sex Assigned at Date Recorded Not on file documented as of this encounter Miscellaneous Notes Telephone Encounter - Yola Wilcox LPN - 05/21/2017 4:56 PM EDT Francisca phones to report that she on the prednisone 7 mg and she is using the Lidocaine patch on her back lower back which seems to be helping some. She can hardly walk and in pain like sciatica. She is wondering when the Ebrel is going to start working. She has walking sticks ordered. Enbrel is not indicated for degenerative back pain. ??Should see PCP or if previously seen in Spine Center or Pain Clinic, then would be another option. I do not see imaging in at . ??She was referred to PT mid-April for right sided sciatica. ?? Should follow up w/PCP if persistent or worsening symptoms. Psoriatic arthritis is her diagnosis for which enbrel was prescribed. Thank you. Enbrel is not indicated for degenerative back pain. ??Should see PCP or if previously seen in Spine Center or Pain Clinic, then would be another option. I do not see imaging in at . ??She was referred to PT mid-April for right sided sciatica. ?? Should follow up w/PCP if persistent or worsening symptoms. Psoriatic arthritis is her diagnosis for which enbrel was prescribed. Thank you. Enbrel is not indicated for degenerative back pain. ??Should see PCP or if previously seen in Spine Center or Pain Clinic, then would be another option. I do not see imaging in at . ??She was referred to PT mid-April for right sided sciatica. ?? Should follow up w/PCP if persistent or worsening symptoms. Psoriatic arthritis is her diagnosis for which enbrel was prescribed. Thank you. Enbrel is not indicated for degenerative back pain. ??Should see PCP or if previously seen in Spine Center or Pain Clinic, then would be another option. I do not see imaging in at . ??She was referred to PT mid-April for right sided sciatica. ?? Should follow up w/PCP if persistent or worsening symptoms. Psoriatic arthritis is her diagnosis for which enbrel was prescribed. Thank you. Enbrel is not indicated for degenerative back pain. ??Should see PCP or if previously seen in Spine Center or Pain Clinic, then would be another option. I do not see imaging in at . ??She was referred to PT mid-April for right sided sciatica. ?? Should follow up w/PCP if persistent or worsening symptoms. Psoriatic arthritis is her diagnosis for which enbrel was prescribed. Thank you. Enbrel is not indicated for degenerative back pain. ??Should see PCP or if previously seen in Spine Center or Pain Clinic, then would be another option. I do not see imaging in at . ??She was referred to PT mid-April for right sided sciatica. ?? Should follow up w/PCP if persistent or worsening symptoms. Psoriatic arthritis is her diagnosis for which enbrel was prescribed. Thank you. Enbrel is not indicated for degenerative back pain. ??Should see PCP or if previously seen in Spine Center or Pain Clinic, then would be another option. I do not see imaging in at . ??She was referred to PT mid-April for right sided sciatica. ?? Should follow up w/PCP if persistent or worsening symptoms. Psoriatic arthritis is her diagnosis for which enbrel was prescribed. Thank you. Enbrel is not indicated for degenerative back pain. ??Should see PCP or if previously seen in Spine Center or Pain Clinic, then would be another option. I do not see imaging in at . ??She was referred to PT mid-April for right sided sciatica. ?? Should follow up w/PCP if persistent or worsening symptoms. Psoriatic arthritis is her diagnosis for which enbrel was prescribed. Thank you. \ +++++++++++++++++++++++ RTC to Sandra about the message above. She wants to put things on hold for now and will follow up later with us here in Rheumatology. documented in this encounter Plan of Treatment Upcoming Encounters Date Type Specialty Care Team Description 02/26/2023 Office Visit Rheumatology Toño Rodriguez PA [facility] RHEUMATOLOGY [place], [place] [address] (Wo rk) documented as of this encounter Visit Diagnoses Not on filedocumented in this encounter Care Teams Inseam Leveler Relationship Specialty Start Date End Date Jennifer Silva APRN PCP - General 09/10/10 07/01/17 documented as of this encounter
--- OUTSIDE RECORDS SUMMARY | 2022-07-08 09:33 | XMS_ITS | Encounter Summary ---
:1945 [place] [address] Care Team Providers Name Role Phone Terri Bowser MD Primary Care Provider Encounter Details Date Type Department Care Team Description 10/21/2017 Hospital Encounter Radiology Library at [place], Yesenia Cole [facility] [place] [address] [facility] [phone] [place], [place] [address] (Wo rk) Social History Tobacco [...] Sig Dispensed Refills Start Date End Date rosuvastatin (CRESTOR) 10 Take 10 mg by mouth 0 1 mg Tablet three times a week. levalbuterol (XOPENEX) Take 1 ampule by 0 0.31 mg/3 mL Solution for nebulization every 4 Nebulization hours as needed for Wheezing. NARCAN 4 mg/actuation 0 06/04/2017 [place], Non-Aerosol lidocaine (LIDODERM) 5 % Apply 1 [...] fluticasone (FLONASE) 50 daily. 0 12/11/2015 mcg/actuation [place], Suspension polyethylene glycol Take 17 g by [...] 0 10/04 (XOPENEX HFA) 45 mcg/Actuation inhaler DULoxetine (CYMBALTA) 20 Take 1 capsule by 30 tablet 11 09/1803/15/2019 mg Capsule, Delayed mouth daily. Release(E.C.) ENBREL 50 mg/mL (0.98 mL) INJECT 1 SYRINGE 4 mL 04/1904/27/2018 Syringe SUBCUTANEOUSLY ONCE A WEEK predniSONE (DELTASONE) 1 Take 1 tablet by 150 tablet 6 02/1206/16/2019 mg Tablet mouth daily. Take 4 tablets by mouth daily on taper. predniSONE (DELTASONE) 5 Take 1 tablet by 30 tablet 6 02/1211/09/2017 mg Tablet mouth daily. Take 1 tablet by mouth daily on taper. LEVEMIR FLEXTOUCH Insulin 12 Units daily. 12 07/0205/19/2022 Pen hydrochlorothiazide as needed. 0 04/04/201609/13 (HYDRODIURIL) 12.5 mg Tablet lisinopril Take 5 mg by mouth 0 10/31/20152021 (PRINIVIL;ZESTRIL) 10 mg daily. Tablet FLOVENT HFA 220 2 times daily. 0 12/11/201509/13 mcg/actuation HFA Aerosol Inhaler cycloSPORINE (RESTASIS) Place 1 drop into 0 03/15/2019 0.05 % Dropperette both eyes 2 times daily. aspirin 325 mg tablet Take 81 mg by mouth 0 05/19/2022 daily. diaZEPam (VALIUM) 2 mg Take 1 mg by mouth 0 03/15/2019 tablet every 6 hours as needed. Reported on 03/11/2017 esomeprazole (NEXIUM) 40 Take 40 mg by mouth 0 09/13/2019 mg capsule 2 times daily. MAGNESIUM CHLORIDE Take by mouth daily 0 01/30/20 11 03/15/2019 (SLOW-MAG ORAL) as needed. documented as of this encounter Plan of Treatment Upcoming Encounters Date Type Specialty Care Team Description 02/26/2023 Office Visit Rheumatology Toño Rodriguez, [facility] [address] [place], [place] [address] (Wo rk) documented as of this encounter Procedures Procedure Name Priority Date/Time Associated Diagnosis Comme nts FILM LIBRARY Routine 10/21/2017 12:00 AM Results for this STORAGE ONLY DX EST procedure ar e in PELVIS the results section. documented in this encounter Results Film Library- Storage Only DX Pelvis (10/21/2017 12:00 AM EST) Specimen (Source) Anatomical Location Collection Method / Collectio n Time Received Time / Laterality Volume Narrative YAN - 10/21/2017 5:50 PM EST This exam is for storage only and is aut o-finalizing. Ran Rios MD [facility] FILM LIBRARY ORDERABLES Performing Organization Address City/State/ZIP Code Phon e Number [place], [place] documented in this encounter Visit Diagnoses Not on filedocumented in this encounter Care Teams Sole Rougher Relationship Specialty Start Date End Date Terri Bowser MD PCP - General Family Medicine 07/02/17 [address] [place] [address] documented as of this encounter
--- OUTSIDE RECORDS SUMMARY | 2022-07-08 09:33 | XMS_ITS | Encounter Summary ---
:1945 Author Organization [facility] [place] [address] Care Team Providers Name Role Phone Ricardo Jennifer Cole APRN Primary Care Provider Encounter Details Date Type Department Care Team Description 05/13/2017 Telephone Rheumatology [place] [facility] [address] Social History Tobacco Use Types Packs/Day Years Used Date Former Smoker 2 Quit: 07/19/19 77 Smokeless Tobacco: Never Used Alcohol Use Standard Drinks/Week Comments No 0 (1 standard drink = 0.6 oz pure alcoho l) Sex Assigned at Date Recorded Not on file documented as of this encounter Miscellaneous Notes Telephone Encounter - Yola Wlicox LPN - 05/13/2017 10:02 AM EDT RTC to Sandra who states that she decrease her prednisone to 6 mg and is having sciatic pain and pain in her knees. She is wondering if she could back to the 8 mg of prednisone. She will try the 8 mg dose and give us a call back on Thursday05/11/17 to let us know how she is doing. documented in this encounter Plan of Treatment Upcoming Encounters Date Type Specialty Care Team Description 02/26/2023 Office Visit Rheumatology Toño Rodriguez PA [facility]HE[facility] [place], [place] [address] (Wo rk) documented as of this encounter Visit Diagnoses Not on filedocumented in this encounter Care Teams Poured Concrete Wall Technician Relationship Specialty Start Date End Date Jennifer Silva APRN PCP - General 09/10/10 07/01/17 documented as of this encounter
--- OUTSIDE RECORDS SUMMARY | 2022-07-08 09:33 | XMS_ITS | Encounter Summary ---
:1945 Author Organization [place] [address] Care Team Providers Name Role Phone Terri Bowser MD Primary Care Provider Encounter Details Date Type Department Care Team Description 10/02/2017 Hospital Encounter Radiology Library at Rosalino Li MD [facility] [place] [address] [place] [address] [phone] (Wo rk) Social History Tobacco Use Types [...] for Wheezing. NARCAN 4 mg/actuation 0 06/04/2017 [place], Non-Aerosol lidocaine (LIDODERM) 5 % Apply 1 [...] Sublingual BISAC-EVAC 10 mg USE ONE SUPPOSITORY 03/03/2017 Suppository RECTALLY DAILY NEEDED ONETOUCH ULTRA [...] fluticasone (FLONASE) 50 daily. 0 12/11/2015 mcg/actuation [place], Suspension polyethylene glycol Take 17 g by [...] Visit Rheumatology Toño Rodriguez PA [facility]HEUM[facility] [place], [place] [address] (Wo rk) documented as of this encounter Procedures Procedure Name Priority Date/Time Associated Diagnosis Comme nts FILM LIBRARY Routine 10/02/2017 12:00 AM Results for this STORAGE ONLY DX EST procedure ar e in SPINE the results section. documented in this encounter Results Film Library- Storage Only DX Spine (10/02/2017 12:00 AM EST) Specimen (Source) Anatomical Location Collection Method / Collectio n Time Received Time / Laterality Volume Narrative YAN - 10/05/2017 3:27 PM EST This exam is for storage only and is aut o-finalizing. Rosalino Li MD IMG FILM LIBRARY ORDERABLES Performing Organization Address City/State/ZIP Code Phon e Number [place], [place] documented in this encounter Visit Diagnoses Not on filedocumented in this encounter Care Teams Party Bus Driver Relationship Specialty Start Date End Date Terri Bowser MD PCP - General Family Medicine 07/02/17 [address] [place] [address] documented as of this encounter
--- OUTSIDE RECORDS SUMMARY | 2022-07-08 09:33 | XMS_ITS | Encounter Summary ---
:1945 Author Organization [facility] [place] [address] Care Team Providers Name Role Phone Terri Bowser MD Primary Care Provider Reason for Visit Reason Comments Medication Refill Encounter Details Date Type Department Care Team Description 11/09/2017 Ref[place] [facility]isha Heredia APRN [facility] [place] [address] RHEUMATOLOGY DEPT. [phone] [place], [place] [address] (Wo rk) Social History Tobacco [...] Office Visit Rheumatology Toño Rodriguez PA [facility] [address] [place], [place] [address] (Wo rk) documented as of this encounter Visit Diagnoses Not on filedocumented in this encounter Care Teams Carbonating Stone Cleaner Relationship Specialty Start Date End Date Terri Bowser MD PCP - General Family Medicine 07/02/17 [address] [place] [address] documented as of this encounter
--- OUTSIDE RECORDS SUMMARY | 2022-07-08 09:33 | XMS_ITS | Encounter Summary ---
:1945 Author Organization [facility] [place] [address] Care Team Providers Name Role Phone Jennifer Silva APRN Primary Care Provider Reason for Visit Reason Onset Date Comments Medication Refill 02/25/2017 Encounter Details Date Type Department Care Team Description 02/25/2017 [place]ill [place] [facility] [address] Social History Tobacco Use Types Packs/Day [...] Visit Rheumatology Toño Rodriguez PA [facility] [address] [place], [place] [address] (Wo rk) documented as of this encounter Visit Diagnoses Not on filedocumented in this encounter Care Teams Supervisor [place] Relationship Specialty Start Date End Date Jennifer Silva APRN PCP - General 09/10/10 07/01/17 documented as of this encounter
--- OUTSIDE RECORDS SUMMARY | 2022-07-08 09:33 | XMS_ITS | Encounter Summary ---
:1945 Author Organization [facility] [place] [address] Care Team Providers Name Role Phone Terri Bowser MD Primary Care Provider Encounter Details Date Type Department Care Team Description 07/20/2019 Telephone Urology at [facility] Reinaldo Norman MD [facility] [place] [address] UROLOGY DEPT [phone] [place], [place] [address] (Wo rk) Social History Tobacco Use Types Packs/Day Years Used Date Former Smoker 2 Quit: 07/19/19 79 Smokeless Tobacco: Never Used Alcohol Use Standard Drinks/Week Comments No 0 (1 standard drink = 0.6 oz pure alcoho l) Sex Assigned at Date Recorded Not on file documented as of this encounter Miscellaneous Notes Telephone Encounter - Reinaldo Norman MD - 07/20/2019 10:50 AM EDT I was contacted by an [facility] physician (LESLI) regarding the patient. She had presented last week for a flank pain and [place] and a CT scan was suggestive of 1cm proximal left ureteric stone. Cr was 1.5 and she was sent home with pain medications. She then presented again yesterday for worsening symptoms andrising Cr (1.9) which was partially attributed to dehydration. Cr was back to 1.4 this am after hydration, but pain continues to be an issue and a repeat CT scan showed that the stone was in similar location. I recommended a transfer to here for a stent placement. This will be arranged by the transfercenter. CT scans were not available for me to review at this time but will be pushed over. documented in this encounter Plan of Treatment Upcoming Encounters Date Type Specialty Care Team Description 02/26/2023 Office Visit Rheumatology Toño Rodriguez PA [facility] RHEUMATOLOGY [place], [place] [address] (Wo rk) documented as of [...] on filedocumented in this encounter Care Teams Final Inspector Movement Assembly Relationship Specialty Start Date End Date Terri Bowser MD PCP - General Family Medicine 07/02/17 [address] [place] [address] documented as of this encounter
--- OUTSIDE RECORDS SUMMARY | 2022-07-08 09:33 | XMS_ITS | Encounter Summary ---
:1945 Author Organization [facility] [place] [address] Care Team Providers Name Role Phone Terri Bowser MD Primary Care Provider Encounter Details Date Type Department Care Team Description 11/16/2017 Telephone Rheumatology at [facility] [place] [address] Social History Tobacco Use Types Packs/Day Years Used Date Former Smoker 2 Quit: 07/19/19 77 Smokeless Tobacco: Never Used Alcohol Use Standard Drinks/Week Comments No 0 (1 standard drink = 0.6 oz pure alcoho l) Sex Assigned at Date Recorded Not on file documented as of this encounter Miscellaneous Notes Telephone Encounter - Yola Wilcox LPN - 11/16/2017 11:11 AM EST Sandra phone to report that she could not make her appointment this week and had to cancel due to illness, thinks she is coming down with the flu. She has not taken the enbrel and states that her eye sight is returning to normal for her which is 20/60. Her PCP said to hold the cymbalta for now. She is wondering what she should do now that the pain is coming back since she has been off the enbrel. Or should she wait until December 29 for her appointment. She is on prednisone 5 mg and taking the oxycodone 2 a day now. She was just only taking one a day. Please advise. +++++++++++++++++++++ Best to assess in office. ??Why holding cymbalta? May schedule earlier follow up appointment, if needed. Thank you. Salma ++++++++++++++++++++++ She states that she has an appointment with her PCP next week and will discuss further the Cymbalta.She will call earlier if she needs to be seen. documented in this encounter Plan of Treatment Upcoming Encounters Date Type Specialty Care Team Description 02/26/2023 Office Visit Rheumatology Toño Rodriguez PA [facility] RHEUMATOLOGY [place], [place] [address] (Wo rk) documented as of this encounter Visit Diagnoses Not on filedocumented in this encounter Care Teams Director Of Home Health Services Relationship Specialty Start Date End Date Terri Bowser MD PCP - General Family Medicine 07/02/17 [address] [place] [address] documented as of this encounter
--- OUTSIDE RECORDS SUMMARY | 2022-07-08 09:33 | XMS_ITS | Encounter Summary ---
:1945 Author Organization [facility] [address] Care Team Providers Name Role Phone Terri Bowser MD Primary Care Provider Encounter Details Date Type Department Care Team Description 10/21/2017 External Results Spine Center at [facility] non Provider, [place] [address] Social History Tobacco Use Types Packs/Day [...] 02/26/2023 Office Visit Rheumatology Toño Rodriguez PA [facility] ER [address] [place]UN[address]Z [place], [place] [address] (Wo rk) documented as of this encounter Procedures Procedure Name Priority Date/Time Associated Diagnosis Comme nts XR LUMBAR SPINE 2 OR 3 VIEWS Routine 10/16/2017 documented in this encounter Results XR Lumbar Spine 2 Or 3 Views (Generic) (10/16/2017) Anatomical Region Laterality Modality L-spine N/A Radiographic Imaging Narrative This result has an attachment that is no t available. Historical Provider IMKelsey DX ORDERABLES documented in this encounter Visit Diagnoses Not on filedocumented in this encounter Care Teams Concrete Analyst Relationship Specialty Start Date End Date Terri Bowser MD PCP - General Family Medicine 07/02/17 [address] [place] [address] documented as of this encounter
--- OUTSIDE RECORDS SUMMARY | 2022-07-08 09:33 | XMS_ITS | Encounter Summary ---
:1945 [place] [address] Care Team Providers Name Role Phone Terri Bowser MD Primary Care Provider Encounter Details Date Type Department Care Team Description 07/18/2019 Ancillary Procedure Radiology Library at Aidan Bhatia [facility] [place] [address] UROLOGY [phone] [place], [place] [address] (Wo rk) Social History Tobacco [...] 02/26/2023 Office Visit Rheumatology Toño Rodriguez PA [facility] [address] [place], [place] [address] (Wo rk) documented as of this encounter Goals Goal Patient Goal Associated Recent Patient-Stated? Author Type Problems Progress DH Home Medication Patient No O'Dreicr ke, Compliance and Facing Rachael T, Understanding Action Plan [facility] Note: Formatting of this note might be d ifferent from the original. Patient's goal is to decrease pain by 50 % over the next 6 months (current pain 7 out of 10, would like to get down to 3) documented as of this encounter Procedures Procedure Name Priority Date/Time Associated Diagnosis Comme nts FILM LIBRARY Routine 07/18/2019 12:00 AM Results for this STORAGE ONLY CT EDT procedure ar e in CHEST ABDOMEN the results PELVIS section. documented in this encounter Results Film Library- Storage Only CT Chest Abdomen Pelvis (07/18/2019 12:00 AM EDT) Specimen (Source) Anatomical Location Collection Method / Collectio n Time Received Time / Laterality Volume Narrative [facility] - 07/20/2019 7:34 PM EDT This exam is auto-finalizing. It's purpo se is for storage only. Lupillo Bhatia MD IMG FILM LIBRARY ORDERABLES Performing Organization Address City/State/ZIP Code Phon e Number [place], [place] documented in this encounter Visit Diagnoses Not on filedocumented in this encounter Care Teams Plant Operator Helper Relationship Specialty Start Date End Date Terri Bowser MD PCP - General Family Medicine 07/02/17 [address] [place] [address] documented as of this encounter
--- OUTSIDE RECORDS SUMMARY | 2022-07-08 09:33 | XMS_ITS | Encounter Summary ---
:1945 Author Organization [facility] [place] [address] Care Team Providers Name Role Phone Terri Bowser MD Primary Care Provider Reason for Visit Reason Onset Date Comments Medication Refill 06/16/2019 Encounter Details Date Type Department Care Team Description 06/16/2019 Refill Rheumatology at [facility] Kelly [place], [place] [address] Social History Tobacco Use Types Packs/Day Years Used Date Former Smoker 2 Quit: 07/19/19 77 Smokeless Tobacco: Never Used Alcohol Use Standard Drinks/Week Comments No 0 (1 standard drink = 0.6 oz pure alcoho l) Sex Assigned at Date Recorded Not on file documented as of this encounter Miscellaneous Notes Telephone Encounter - Kelly Centeno RN - 06/16/2019 10:10 AM EDT Patient calls asking for a refill on Prednisone 1mg tabs - she thought she had enough at home for her taper but actually does not. Script cued and will route to provider for approval. I left a voicemail for Francisca letting her know we will process this refill for her and welcomed her to call back anytime if needed. documented in this encounter Plan of Treatment Upcoming Encounters Date Type Specialty Care Team Description 02/26/2023 Office Visit Rheumatology Toño Rodriguez PA [facility] [address] [place], [place] [address] (Wo rk) documented as of this [...] on filedocumented in this encounter Care Teams Manager Contact Relationship Specialty Start Date End Date Terri Bowser MD PCP - General Family Medicine 07/02/17 [address] [place] [address] documented as of this encounter
--- OUTSIDE RECORDS SUMMARY | 2022-07-08 09:33 | XMS_ITS | Encounter Summary ---
:1945 Author Organization [facility] [place] [address] Care Team Providers Name Role Phone Terri Bowser MD Primary Care Provider Reason for Visit Reason Comments Medication Refill Encounter Details Date Type Department Care Team Description 06/13/2018 Refill [place]ology at [facility] [place] Alisha Heredia [place] [facility] [address] RHEUMATOLOGY DEPT. [phone] [place], [place] [address] (Wo rk) Social History Tobacco [...] 02/26/2023 Office Visit Rheumatology Toño Rodriguez PA [facility] [address] [place], [place] [address] (Wo rk) documented as of [...] on filedocumented in this encounter Care Teams Video Specialist Relationship Specialty Start Date End Date Terri Bowser MD PCP - General Family Medicine 07/02/17 [address] [place] [address] documented as of this encounter
--- OUTSIDE RECORDS SUMMARY | 2022-07-08 09:33 | XMS_ITS | Encounter Summary ---
:1945 Author Organization [facility] [place] [address] Care Team Providers Name Role Phone Terri Bowser MD Primary Care Provider Encounter Details Date Type Department Care Team Description 06/14/2019 Orders Only [place] [facility] [place]isha Heredia APRN [facility] [place] [address] RHEUMATOLOGY DEPT. [phone] [place], [place] [address] (Wo rk) Social History [...] 02/26/2023 Office Visit Rheumatology Toño Rodriguez PA [facility] ER [address] [place], [place] [address] (Wo rk) documented as of this encounter Visit Diagnoses Not on filedocumented in this encounter Care Teams Speech Pathology Supervisor Relationship Specialty Start Date End Date Terri Bowesr MD PCP - General Family Medicine 07/02/17 [address] [place] [address] documented as of this encounter
--- OUTSIDE RECORDS SUMMARY | 2022-07-08 09:33 | XMS_ITS | Encounter Summary ---
:1945 Author Organization [facility] [place] [address] Care Team Providers Name Role Phone Terri Bowser MD Primary Care Provider Reason for Visit Reason Onset Date Comments Labs Only 04/27/2019 Encounter Details Date Type Department Care Team Description 04/27/2019 Telephone Rheumatology at [facility] Noe Manzanares, [place] [address] Social History Tobacco Use Types Packs/Day Years Used Date Former Smoker 2 Quit: 07/19/19 77 Smokeless Tobacco: Never Used Alcohol Use Standard Drinks/Week Comments No 0 (1 standard drink = 0.6 oz pure alcoho l) Sex Assigned at Date Recorded Not on file documented as of this encounter Miscellaneous Notes Telephone Encounter - Noe Manzanares RN - 04/27/2019 9:55 AM EDT Patient calls clinic, leaves message labs completed at [facility]. Request for results sent to [facility]. documented in this encounter Plan of Treatment Upcoming Encounters Date Type Specialty Care Team Description 02/26/2023 Office Visit Rheumatology Toño Rodriguez PA [facility] [place]HEUMATOLOGY [place], [place] [address] (Wo rk) documented as of this encounter Visit Diagnoses Not on filedocumented in this encounter Care Teams Underground Mining Section Foreman Relationship Specialty Start Date End Date Terri Bowser MD PCP - General Family Medicine 07/02/17 [address] [place] [address] documented as of this encounter
--- OUTSIDE RECORDS SUMMARY | 2022-07-08 09:33 | XMS_ITS | Encounter Summary ---
:1945 Author Organization [facility] [place] [address] Care Team Providers Name Role Phone Terri Bowser MD Primary Care Provider Reason for Visit Reason Onset Date Comments Other 10/16/2017 Encounter Details Date Type Department Care Team Description 10/16/2017 Telephone Rheumatology at [facility] [place] [address] [place] [address] [facility] [phone] (Wo rk) Social History Tobacco Use Types Packs/Day Years Used Date Former Smoker 2 Quit: 07/19/19 77 Smokeless Tobacco: Never Used Alcohol Use Standard Drinks/Week Comments No 0 (1 standard drink = 0.6 oz pure alcoho l) Sex Assigned at Date Recorded Not on file documented as of this encounter Miscellaneous Notes Telephone Encounter - Cassidy Melendrez RN - 10/16/2017 3:49 PM EST Ms. Kong says that she has noticed that her eye sight is worse since starting the Enbrel. She says that she has a history of macular degeneration. She says that she can see but has to use a magnifying lens to read. She does not want to lose her license. She wanted to know if the Enbrel was causingit. I told her that I would send a message to Alisha Yan and ask her. I told her that she would be back next week. ++++++++++++++++++++++++ Please advise patient she should HOLD the enbrel, BUT STILL NEEDS to see her finished goods planner to assure no other findings. She is diabetic with existing eye disease. ??Must review her symptoms with ophth. Thank you for calling patient. Salma I RTC to Sandra and she states that she is on it and is going to see her opth. And get her eyes checked out. documented in this encounter Plan of Treatment Upcoming Encounters Date Type Specialty Care Team Description 02/26/2023 Office Visit Rheumatology Toño Rodriguez PA [facility] ER RHEUMATOLOGY [place], [place] [address] (Wo rk) documented as of this encounter Visit Diagnoses Not on filedocumented in this encounter Care Teams Glove Finisher Relationship Specialty Start Date End Date Terri Bowser MD PCP - General Family Medicine 07/02/17 [address] [place] [address] documented as of this encounter
--- OUTSIDE RECORDS SUMMARY | 2022-07-08 09:33 | XMS_ITS | Encounter Summary ---
:1945 Author Organization [facility] [place] [address] Care Team Providers Name Role Phone Jennifer Silva APRN Primary Care Provider Reason for Visit Reason Onset Date Comments Prior Authorization 04/30/2017 Encounter Details Date Type Department Care Team Description 04/30/2017 Telephone [place]ology [place] [facility] Odilia Villalba [place] [address] Social History Tobacco Use Types Packs/Day Years Used Date Former Smoker 2 Quit: 07/19/19 79 Smokeless Tobacco: Never Used Alcohol Use Standard Drinks/Week Comments No 0 (1 standard drink = 0.6 oz pure alcoho l) Sex Assigned at Date Recorded Not on file documented as of this encounter Miscellaneous Notes Telephone Encounter - Odilia Villalba - 05/14/2017 4:21 PM EDT LEFT VM AND MY[facility] MESSAGE ABOUT PA APPROVAL Telephone Encounter - Odilia Villalba - 04/30/2017 3:15 PM EDT Medication Prior Authorization [place] Medication name/dose/directions: LIDOCAINE 5% PATCH - APPLY ONE ONTO SKIN DAILY Rationale for request: NEUROPATHY Health plan: [email or web address] ([facility]) Authorizing front desk representative name: FRANKLYN Faxed to health plan on: 04/30/17 Health plan decision: APPROVED Quantity approved: Authorization number: [id number] Start date: 04/30/17 End date: 04/30/18 documented in this encounter Plan of Treatment Upcoming Encounters Date Type Specialty Care Team Description 02/26/2023 Office Visit Rheumatology Toño Rodriguez PA [facility] ER [place]ATOLOGY [place], [place] [address] (Wo rk) documented as of this encounter Visit Diagnoses Not on filedocumented in this encounter Care Teams Mds Rn Relationship Specialty Start Date End Date Jennifer Silva APRN PCP - General 09/10/10 07/01/17 documented as of this encounter
--- OUTSIDE RECORDS SUMMARY | 2022-07-08 09:33 | XMS_ITS | Encounter Summary ---
:1945 Author Organization [facility] [place] [address] Care Team Providers Name Role Phone Terri Bowser MD Primary Care Provider Reason for Visit Reason Onset Date Comments Triage 06/08/2019 Encounter Details Date Type Department Care Team Description 06/08/2019 Telephone Rheumatology at [facility] [place] [address] Social History Tobacco Use Types Packs/Day Years Used Date Former Smoker 2 Quit: 07/19/19 77 Smokeless Tobacco: Never Used Alcohol Use Standard Drinks/Week Comments No 0 (1 standard drink = 0.6 oz pure alcoho l) Sex Assigned at Date Recorded Not on file documented as of this encounter Miscellaneous Notes Telephone Encounter - Kelly Centeno RN - 06/14/2019 3:04 PM EDT Francisca called back and we were able to discuss her recent condition and some Prednisone taper instructions from Salma. She reports that her current pain level is awesome and her swelling is very mild atthis time. She states she is still stiff for about 3 hours each morning - it takes 3 hours for the Prednisone to kick in but I'm fine when it does. Lastly, she reports that the stiffness returns at night but she has been able to tolerate it for now. She was excited to learn that she can taper her Prednisone and verbalized understanding of her taper instructions (in Salma's note below). She will callback if needed and plans on hearing back from the pharmacy soon about her Humira. Telephone Encounter - Kelly Centeno RN - 06/14/2019 2:34 PM EDT Images from the original note were not included. Ochoa Turner Debra L, APPLIANCE SERVICE REPRESENTATIVE; Kelly Centeno RN Caller: Unspecified (6 days ago, ??9:47 AM) ?? Thank you Salma! It looks like one of our technicians actually submitted the PA request earlier today and called Francisca to give her our general PA timeline. ??Now we just have to wait on her insurance's decision! Thanks, Ochoa I will now just await a return call from Francisca to get an update on her current symptoms and relay her Prednisone taper instructions. Telephone Encounter - Kelly Centeno RN - 06/14/2019 10:00 AM EDT I called Francisca back with this message from Salma: Please update current status: Pain, stiffness or swelling in peripheral joints? ??Lasting how long? Begin prednisone tape by decrease 1 mg every 2 weeks to 5 mg dose and should be seen in follow up while taking [address] order for Humira and update the [facility] folks for PA. I left her a voicemail asking for a RTC to discuss some replies from her provider. I left my name and callback number for her and will await her response. Telephone Encounter - Kelly Centeno RN - 06/13/2019 12:21 PM EDT Francisca called again asking for Prednisone taper instructions (on 10mg daily) and a plan for her moving forward (See my first note detailing her question dated 06/08 in this encounter). I will ask Salma again for a plan to tell Francisca regarding her prednisone and other medication options and call her back when I receive a reply. Telephone Encounter - Kelly Centeno RN - 06/09/2019 8:57 AM EDT Images from the original note were not included. Carlene Meraz RN Vlahos, Elaina, RN Caller: Unspecified (Yesterday, ??9:47 AM) ?? Chico Mendoza, ??Quick update for you. ??I reviewed Francisca's chart and at first glance she does not look eligible. ??I've forwarded this info to Salma BUT have not contacted Francisca since it seemed like Salma will need to gather more information about next tx steps for Francisca first. ?? I left a voicemail for Francisca stating we have an update for her from Carlene. I left my name and callback number for her and will await her response to share. Telephone Encounter - Kelly Centeno RN - 06/08/2019 10:25 AM EDT Francisca called back to figure out what her plan is going to be from here on. While Salma was away she was prescribed 10mg of Prednisone daily but is hoping to wean off that and begin a medication such as Humira. She states she is not interested in starting Xeljanz - she states she has trialed this med before with and she had bad GI side effects from it. She also tried Methotrexate and states that exacerbated her asthma and she is not interested in trying that medication. Lastly, Francisca states that she was wondering too if Carlene would let her know or not if she qualified for the study or not. She states that if she does trial Humira she would like the citrate-free pens if possible as she struggled in the past with syringes. She is also willing to trial Remicade. I thanked Francisca for her call and let her know that I would reach out to Salma and Carlene about her questions and call her back with a response soon. documented in this encounter Plan of Treatment Upcoming Encounters Date Type Specialty Care Team Description 02/26/2023 Office Visit Rheumatology Toño Rodriguez PA [facility] RHEUMATOLOGY [place], [place] [address] (Wo rk) documented as of this encounter Visit Diagnoses Not on filedocumented in this encounter Care Teams Microbiology Teacher Relationship Specialty Start Date End Date Terri Bowser MD PCP - General Family Medicine 07/02/17 [address] [place] [address] documented as of this encounter
--- OUTSIDE RECORDS SUMMARY | 2022-07-08 09:33 | XMS_ITS | Encounter Summary ---
:1945 Author Organization [facility] [place] [address] Care Team Providers Name Role Phone Terri Bowser MD Primary Care Provider Reason for Visit Auth/Cert Specialty Diagnoses / Procedures Referred By Contact Refer red To Contact Diagnoses stone Procedures PRO CYSTOSCOPY, INSERT URETERAL STENT CYSTO, STENT PLACEMENT (WRVU 2.82) Referral ID Status Reason Start Date Expiration Date Visits Requ ested Visits Authorized [id number] 1 1 Encounter Details Date Type Department Care Team Description 07/21/2019 Anesthesia Event Main Operating Room Evelyn Latham ch, MD [facility] [place] [address] [place] [address] [phone] Anesthesia Record Procedure Summary Procedure Name Responsible Anesthesia Start Anesthesia Stop Time Anesthesiologist Time CYSTO, STENT Evelyn Guevara MD 07/21/19 1359 07/21/19 1 446 PLACEMENT (WRVU 2.82) (Left Ureter) Events Date Time Event Comment 07/21/2019 1346 1359 Start 1403 AN Verify 1403 An Start Data 1410 Anesthesia Ready 1423 Break/Relief In Ismael cloud 1445 an stop data Patient alert an d awake for the procedure. Reports being co mfortable. Transferred to recovery on FM a nd FIO2. Report to RN. MORALES. 1446 Recovery or ICU Handoff Patient care was transferred to the destination unit staff after review of the patient's medica l history, current anesthetic/surgi shay status and plan, according to the Provider Handoff Checklist. 1446 Stop Name Total Midazolam 4 mg ciprofloxacin (CIPRO) 400 mg in dextrose 5% 200 mL 400 mg Dexmedetomidine 6 mcg Lactated Ringers 300 mL Agents Name O2 Air N2O Isoflurane (et) O2 Auxiliary Flowmeter 1 Blood No blood administrations on file. Lines, [...] encounter OR Notes Anesthesia Postprocedure Evaluation - Evelyn Guevara MD - 07/21/2019 4:15 PM EDT Department of Anesthesiology Post-procedure Note Patient: Francisca Kong Procedure Summary Date: 07/21/19 Room / Location: [address] MAIN OR Anesthesia Start: 1359 Anesthesia Stop: 1446 Procedure: CYSTO, STENT PLACEMENT (WRVU 2.82) (Left Ureter) Diagnosis: (stone) Surgeon: Lupillo Bhatia MD Responsible Provider: Evelyn Guevara MD Anesthesia Type: general ASA Status: 4 All Anesthesia Providers: Anesthesiologist: Evelyn Guevara MD FIELD MARKETER: Mirna Maddox CRNA Vitals Value Taken Time BP 154/62 07/21/2019 3:15 PM Temp Pulse Resp 18 07/21/2019 3:15 PM SpO2 99 % 07/21/2019 3:20 PM Pain Level Vitals shown include unvalidated device data. Patient Location: PACU/[facility] Level of Consciousness: Awake and Alert Pain Management: Satisfactory Analgesia PONV: None Cardiovascular Status: At Baseline Respiratory Status: At Baseline Postoperative Fluid Status: Intravascular EUvolemia Possible Anesthetic Complications: NONE apparent at time of evaluation Final Primary Anesthesia Type: MAC (The anesthetic type performed was the same as planned.) Comments: Very happy with anesthetic. Discussed she will need to have general anesthesia for her next procedure. Anesthesia Preprocedure Evaluation - Evelyn Guevara MD - 07/21/2019 11:44 AM EDT Pre-Anesthesia Evaluation for: Francisca Kong a 74 y.o. female. Procedure(s): CYSTO, STENT PLACEMENT (WRVU 2.82) Patient Active Problem List Diagnosis ??? Osteopenia [...] Anxiety ??? Arthritis rheumatoid, PMR ??? Asthma ??? Cardiac disease CAD ??? Carpal tunnel syndrome ??? Cataract ??? COPD (chronic obstructive pulmonary disease) ??? Diabetes mellitus 2006 ??? Fatigue ??? Fibromyalgia ??? GERD (gastroesophageal reflux disease) ??? Hyperlipidemia ??? Hypertension ??? Nerve entrapment 02/09/2013 ??? Osteoporosis ??? Psoriatic arthritis ??? PTSD (post-traumatic stress disorder) ??? Senile macular degeneration OU ??? Ulcer Past Surgical History: Procedure Laterality Date ??? CATARACT REMOVAL OU sx with IOL Dr Kauffman in [facility] ??? INTRAVITREAL INJECTION Left 12/26/08 [facility] ??? INTRAVITREAL INJECTION Left 01/23/09 [facility] ??? INTRAVITREAL INJECTION Left 02/27/09 [facility] Social History Tobacco Use ??? Smoking status: Former Smoker Packs/day: 2.00 Last attempt to quit: 07/19/1979 Years since quittin.0 ??? Smokeless tobacco: Never Used Substance Use Topics ??? Alcohol use: No Social History Substance and Sexual Activity Drug Use No Allergies Allergen Reactions ??? Anesthetics - Amide Type Shortness Of [...] home medications have been reviewed. Physical Exam: Most Recent Vitals: 07/21/19 1052 BP: 141/54 Pulse: 50 Resp: 16 Temp: 36.5 ??C (97.7 ??F) SpO2: 100% Body mass index is 34.57 kg/m??. Height: 157.5 cm (5' 2) Weight: 85.7 kg (189 lb) Airway Assessment: Mallampati: IV TM distance: <3 FB Neck ROM: limited Cardiovascular Assessment: Pulmonary Assessment: Dental Assessment: Misc Assessment: IV access: Peripheral line Anesthesia Plan: ASA 4 general, with a(n) intravenous induction Patient is a 74 year old female with a PMH significant for CAD (s/p stent), psoriatic arthritis (on humira; prednisone), COPD, anxiety, fibromyalgia, PTSD, not wellcontrolled DM (A1C ~ 8). obesity, GERD, chronic pain/neuropathy, KALEY, and HTN who presents for a cystoscopy and stent placement. She developed renal stones and has been able to pass them in the past but unfortunately, the latest one has caused obstruction. Her creatinine was elevated at 1.9. She has an allergy to local anesthetics but tolerate the lidocaine patch. She has one placed on her lower back since she fell and has not had any issues. She believes the allergy is listed because the epinephrine causes SVT. Of note, she states adenosine is the only drug that works for her SVT. She is extremely anxious about having anesthesia and refused it at the beginning of the conversation. She states her heart and lung problems are her primary concerns. She states she has had poor reactions to propofol, narcotics, and all sedatives except valium and versed. She asked to talk to Dr. Bhatia to see if he could perform this procedure without anesthesia. Upon discussion with the surgeon, it was decided she will take midazolam (versed) for the procedure and nothing else. She wants to avoidanesthesia at all possible costs. I explained if she was in an urgent/emergent situation we would need to induce GA. Her records from OSH show a recent echo with a normal EF; tricuspid regurg; Her labs are consistent with ureteral stone (elevated creatinine). She states she has had her labs checked everyday and they have normalized. Plan: MAC ( minimal sedation with midazolam); GA as back up Risks/benefits discussed; questions answered and patient wishes to proceed. Patient Active Problem List: Coronary artery disease (I25.10) DJD (degenerative joint disease) (M19.90) GERD (gastroesophageal reflux disease) (K21.9) Lipid disorder (E78.9) Psoriatic arthritis (L40.50) Reactive airway disease (J45.909) AMD (age related macular degeneration) (H35.30) Fibromyalgia (M79.7) Osteopenia (M85.80) History of tobacco abuse (Z87.891) HTN (hypertension) (I10) Diabetes mellitus type II (E11.9) Hyperlipidemia (E78.5) Paroxysmal SVT (supraventricular tachycardia) (I47.1) Asthma (J45.909) Major depression (F32.9) Irritable bowel (K58.9) Arthritis (M19.90) PTSD (post-traumatic stress disorder) (F43.10) COPD (chronic obstructive pulmonary disease) (J44.9) Bronchospasm (J98.01) Anxiety state, unspecified (F41.1) Hx of tobacco use, presenting hazards to health (Z87.891) Sinusitis (J32.9) Stomatitis (K12.1) Macular degeneration, wet (H35.3290) Nerve entrapment (G58.9) Neuropathy (G62.9) Chronic pain syndrome (G89.4) Food intolerance (K90.49) Region - Other Informed Consent: Anesthetic plan and risks discussed with patient and daughter/son. Plan discussed with FIELD MARKETER. PAT Clinic Note documented in this encounter Plan of Treatment Upcoming Encounters Date Type Specialty Care Team Description 02/26/2023 Office Visit Rheumatology Toño Rodriguez PA [facility] [place], [place] [address] (Wo rk) documented as of this encounter Goals Goal Patient Goal Associated Recent Patient-Stated? Author Type Problems Progress DH Home Medication Patient No O'Rour naomy, Compliance and Facing Rachael Resendiz, Understanding Action Plan [facility] Note: Formatting of this note might be [...] Site ciprofloxacin (CIPRO) 400 mg in Given 07/21/2019 2:09 PM EDT 400 mg dextrose 5% 200 mL 400 mg, Intravenous, SLIDE FASTENERS INSPECTOR TO O.R., 1 dose, On Katherine 07/21/19 at 1130, Administer over 60 Minutes, Day of Surgery (Day of Procedure), Indication for (Active or Suspected): Prophylaxis, Restricted Antibiotic: Please indicate the most appropriate choice: Pre-approved Indication (State the indication in Comments field) dexmedetomidine (PRECEDEX) injection Given 07/21/2019 2:28 PM EDT 2 mcg PRN, Starting on Katherine 07/21/19 at 1421, Until Katherine 07/21/19 at 1446, Anesthesia Intra-op, Routine Given 07/21/2019 2:21 PM EDT 4 mcg lactated ringers infusion New Bag 07/21/2019 1:59 PM EDT CONTINUOUS PRN, Starting on Katherine 07/21/19 at 1359, Until Katherine 07/21/19 at 1446, Anesthesia Intra-op midazolam (PF) (VERSED) multi-dose injec tion Given 07/21/2019 2:21 PM EDT 1 mg Intravenous, PRN, Starting on Katherine 07/21/19 at 1359, Until Katherine 07/21/19 at 1446, Anesthesia Intra-op, Routine Given 07/21/2019 2:13 PM EDT 1 mg Given 07/21/2019 2:03 PM EDT 1 mg documented in this encounter Care Teams Road Design Engineer Relationship Specialty Start Date End Date Terri Bowser MD PCP - General Family Medicine 07/02/17 [address] [place] [address] documented as of this encounter
--- OUTSIDE RECORDS SUMMARY | 2022-07-08 09:33 | XMS_ITS | Encounter Summary ---
:1945 Author Organization [facility] [place] [address] Care Team Providers Name Role Phone Terri Bowser MD Primary Care Provider Reason for Visit Reason Comments Medication Management Encounter Details Date Type Department Care Team Description 07/13/2019 Specialty Pharmacy Pharmacy at [facility] [place] [address] Social History Tobacco Use Types Packs/Day Years Used Date Former Smoker 2 Quit: 07/19/19 77 Smokeless Tobacco: Never Used Alcohol Use Standard Drinks/Week Comments No 0 (1 standard drink = 0.6 oz pure alcoho l) Sex Assigned at Date Recorded Not on file documented as of this encounter Progress Notes Zander Contreras RPH - 07/13/2019 10:53 AM EDT Specialty Pharmacy Consultation; Zander Contreras [facility]ication Management (CMM) Francisca Kong Diagnosis: Psoriatic arthritis Therapy Start Date: 06/22/19 Contact in person or via telephone: Phone Ms. Francisca Kong is a 74 y.o. (1945) female who was contacted in regard to specialty medication. Spoke with patient regarding Humira. A review of the medication therapy was performed and all medication related questions and concerns were addressed. The specialty pharmacy staff will follow up with the patient 5-7 days prior to next refill. Is the patient willing to proceed with the Clinical Assessment? Yes Summary and Recommendations: This patient was contacted for a routine one-month follow-up regarding specialty medication, Humira.Medications and allergies were confirmed with no changes noted. Patient is now two injections into Humira therapy with an established start date of 06/22/19. Patient acknowledges positive changes to her inflammatory symptoms which she describes as fewer stabbing pains in most of her joints. Unfortunately, she also suffers from fibromyalgia which is also contributory to her pain, but is happy with her early improvements and hopes to see the trend continue. Patient relays no issues with adherence and confirms proper storage, handling, and administration technique with the pen formulation. No side effects or issues with injection noted. Patient was reminded of strict storage and handling requirements of medication and potential travel with medication was also discussed. Overall patient is highly satisfied thus far with therapy and understands it is stillearly on in treatment timeframe. Patient had no questions or concerns at the end of our encounter. Clinic follow-up needed: yes - next on 08/24/19 marion [place] Allergies and Drug intolerance: Allergies Allergen Reactions ??? Anesthetics - Amide [...] ??? Morphine Sulfate Pt requests no morphine. Special Dietary or Hydration Requirements: no There is no height or weight on file to calculate BMI. Medication Reconciliation Discrepancies (compared to [facility] med list) no Medication Adherence Patient reported X missed doses in the last month: 0 Any gaps in refill history greater than 2 weeks in the last 3 months: no Demonstrates understanding of importance of adherence: yes Informant: patient Reliability of informant: reliable Provider-estimated medication adherence level: 90-100% Reasons for non-adherence: no problems identified Adherence tools used: calendar, directed education Support network for adherence: healthcare provider Confirmed plan for next specialty medication refill: not applicable Refills needed for supportive medications: not needed Medication List: Current Outpatient Medications Medication Sig Note Dispense Refill ??? predniSONE (DELTASONE) 1 mg Tablet Take by mouth 9mg per day and decrease by 1mg every 2 weeks until you are at 5mg daily. Take along with 5mg tablets to complete taper. 150 tablet 1 ??? adalimumab (HUMIRA,CF, PEN) 40 mg/0.4 mL [...] mg by mouth three times a week. 10/01/2017: Receivedfrom: External Pharmacy ??? levalbuterol (XOPENEX) 0.31 mg/3 mL Solution for Nebulization Take 1 ampule by nebulization every 4 hours as needed for Wheezing. ??? NARCAN 4 mg/actuation [place], Non-Aerosol 07/02/2017: Received from: External Pharmacy ??? lidocaine (LIDODERM) 5 % Adhesive Patch, Medicated Apply 1 patch onto the skin daily. (leave on for 12 hours and remove for 12 hours) 30 patch 3 ??? BD INSULIN PEN NEEDLE UF SHORT 31 gauge x 5/16 Needle USE THREE TIMES A DAY WITH HUMALOG INSULIN 04/30/2017: Received from: External Pharmacy 3 ??? nitroGLYcerin (NITROSTAT) 0.4 mg Tablet, Sublingual as needed. 04/30/2017: Received from: External Pharmacy ??? BISAC-EVAC 10 mg Suppository USE ONE SUPPOSITORY RECTALLY DAILY NEEDED 04/30/2017: Received from: External Pharmacy 5 ??? ONETOUCH ULTRA TEST Strip TEST FIVE TIMES A DAY 08/12/2016: Received from: External Pharmacy 3 ??? cholecalciferol, Vitamin D3, (VITAMIN D-3) 5,000 unit Tablet Take by mouth daily. ??? LEVEMIR FLEXTOUCH Insulin Pen 4 Units 2 times daily. 08/12/2016: Received from: External Pharmacy Received Sig: INJECT 15 UNITS UNDER THE SKIN AT BEDTIME 12 ??? BD INSULIN PEN NEEDLE UF MINI 31 gauge x 3/16 Needle USE ONCE DAILY WITH LEVEMIR 08/12/2016: Received from: External Pharmacy 4 ??? calcium carbonate 648 mg calcium Tablet Take 650 mg by mouth 3 times daily (with meals). ??? hydrochlorothiazide (HYDRODIURIL) 12.5 mg Tablet as needed. 04/16/2016: Received from: External Pharmacy Received Sig: ??? lisinopril (PRINIVIL;ZESTRIL) 10 mg Tablet Take 15 mg by mouth daily. 12/26/2015: Received from: External Pharmacy ??? fluticasone (FLONASE) 50 mcg/actuation [place], Suspension daily. 12/26/2015: Received from: External Pharmacy ??? FLOVENT HFA 220 mcg/actuation HFA Aerosol Inhaler 2 times daily. 12/26/2015: Received from: External Pharmacy ??? polyethylene glycol (MIRALAX) 17 gram Powder [...] times daily as needed. Reported on 03/11/2017 03/11/2017: PRN ??? verapamil (CALAN) 40 mg tablet 40 mg, PO, Three times daily (Patient taking differently: 40 mg, PO, Three times daily, and 1 additional if needed) ??? Levalbuterol Tartrate (XOPENEX HFA) 45 mcg/Actuation inhaler 2 Puff(s), Inh, Q6H No current facility-administered medications for this visit. Most Recent Vitals: Ht Readings from Last 1 Encounters: 04/18/19 157.5 cm (5' 2) Wt Readings from Last 3 Encounters: 04/18/19 85.7 kg (189 lb) 03/15/19 85.1 kg (187 lb 9.6 oz) 10/01/17 88.9 kg (196 lb) Temp Readings from Last 3 Encounters: 04/18/19 36.9 ??C (98.5 ??F) (Oral) 07/02/17 36.7 ??C (98.1 ??F) (Oral) 04/30/17 36.8 ??C (98.3 ??F) (Oral) BP Readings from Last 3 Encounters: 04/18/19 129/65 03/15/19 133/80 10/01/17 122/70 Pulse Readings from Last 3 Encounters: 04/18/19 82 03/15/19 80 10/01/17 89 Pertinent Lab values: Lab Results Component Value Date NA 140 04/16/2016 K 4.1 04/16/2016 CL 102 04/16/2016 CO2 25 04/16/2016 BUN 19 (H) 04/16/2016 CREATININE 0.74 04/16/2016 GLUCOSE 164 03/15/2019 CALCIUM 9.5 04/16/2016 Lab Results Component Value Date ALT 19 04/16/2016 AST 15 04/16/2016 ALKPHOS 82 04/16/2016 BILITOT 0.3 04/16/2016 BILIDIR 0.1 04/16/2016 ALBUMIN 4.4 04/16/2016 PROT 7.1 04/16/2016 Lab Results Component Value Date WBC 10.1 (H) 04/16/2016 HGB 13.0 04/16/2016 HCT 39.1 04/16/2016 MCV 90.5 04/16/2016 PLATELET 233 04/16/2016 Lab Results Component Value Date HA1C 8.3 (H) 03/07/2015 Immunization History Administered Date(s) Administered ??? Influenza Vaccine w/Preservative, Split 08/04/2012, 07/19/2013, 08/02/2015 ??? Pneumococcal Polyvalent 23 08/11/2007 ??? Tuberculin Skin Test, PPD 08/01/2004, 08/20/2005 Assessment and Recommendations: Title Cognitive Ability: good Drug Treatment Outcomes 06/15/2019 1338 Disease progression: Stable Patient Overall Status: Stable Reviewed in detail with patient: Dose appropriateness based on recommended standard dosing Current medication list including OTC medications Medication and disease problems Allergies Comorbid conditions/ Problem List Past adverse events if any Special needs of the patient including physical and cognitive limitations Goals of therapy and management strategies Warnings, precautions, and contraindications Side effects Drug-drug and drug-food interactions Administration instructions including dose, frequency and method Handling, storage, and disposal of the medication Relevant lab data Patient verbalizes understanding and is able to read-back instructions on self-administration/injection, proper storage, drug stability, importance of adherence and management strategies, side effect avoidance and mitigation strategies, and interruptions in therapy: Yes Economic Assessment: Patient is agreeable to medication copay: yes Copay Amount: N/A Day Supply: N/A Date Needed: N/A Copay assistance required: N/A Physical Assessment: Functional limitations identified: no Is patient a fall risk: no Cognitive limitations identified such as orientation, memory, reasoning or judgement: no Other: no Social Assessment: Does the patient have a primary district manager primary care sales? No Patient has emergency contact on file: Yes Does patient need referral to social media executive: No Does patient need referral to advocacy group: No Physical and Home Health Assessment: Is the patient able to store their medication as directed? Yes Is the patient in a safe home environment? Yes Do you have a support network? Yes Reviewed potential home safety hazards: none noted Therapy Assessment: Appropriate Therapy: Yes Current Medication Dosing/Route/Frequency: Humira 40 mg SQ q14 days Effective: yes - early response noted Patient experienced change in condition that affects treatment: no Are you experiencing any side effects from your medication? no Patient Goals: Goals ??? DH Home Medication Compliance and Understanding Patient's goal is to decrease pain by 50% over the next 6 months (current pain 7 out of 10, would like to get down to 3) Is the patient on track to achieve goals of therapy? Yes Additional care/services needed: no Educational information or adherence tools provided: Yes Additional equipment/supplies required: no Care Plan Reviewed and Approved by both Pharmacist and Patient: Yes Did Care Plan Change? No Informed patient of specialty pharmacy services: Yes -Patient received welcome packet: Yes Date Received: With first shipment Delivery Method: Mail -Patient returned signed Rights & Responsibilities: Yes Date Received: With first shipment Delivery Method: Mail -Patient is aware a licensed pharmacist is available 24 hours a day, 7 days a week to discuss medication-related questions or concerns: Yes -Patient verbalizes understanding of education on the common side effect profile of the medication: Yes -The patient is able to call 911 or seek urgent care if signs/symptoms of allergy or harmful adversereactions occur: Yes Patient Satisfaction with Therapy: Yes Patient understands no changes to current drug regimen were made at the appointment and that [facility] is providing recommendations (summary located at top of note) for provider review and follow up. Zander Contreras RPH 07/13/19 10:54 AM documented in this encounter Plan of Treatment Upcoming Encounters Date Type Specialty Care Team Description 02/26/2023 Office Visit Rheumatology Toño Rodriguez PA [facility] [place] [address] (Wo rk) documented as of [...] on filedocumented in this encounter Care Teams Front Tender Relationship Specialty Start Date End Date Terri Bowser MD PCP - General Family Medicine 07/02/17 [address] [place] [address] documented as of this encounter
--- OUTSIDE RECORDS SUMMARY | 2022-07-08 09:33 | XMS_ITS | Encounter Summary ---
:1945 Author Organization [facility] [place] [address] Care Team Providers Name Role Phone Terri Bowser MD Primary Care Provider Reason for Visit Consultation (Routine) - Specialty Diagnoses / Procedures Referred By Contact Refer red To Contact Endocrinology Diagnoses IDDM Terri Bowser MD [facility] [address] [place] [address] [place] [address] Fax: Referral ID Status Reason Start Date Expiration Date Visits V isits Requested Authorized [id number] Consult, 06/01/2018 06/01/2019 6 6 [facility] Encounter Details Date Type Department Care Team Description 03/15/2019 Office Visit Endocrinology at [facility] Carlee Guthrie MD [facility] [place] [address] Type 2 diabetes [facility] Asia Cisneros MD [facility] [place] [address] [place] [address] Social History Tobacco Use Types Packs/Day Years Used Date Former Smoker 2 Quit: 07/19/19 79 Smokeless Tobacco: Never Used Alcohol Use Standard Drinks/Week Comments No 0 (1 standard drink = 0.6 oz pure alcoho l) Sex Assigned at Date Recorded Not on file documented as of this encounter Last Filed Vital Signs Vital Sign Reading Time Taken Comments Blood Pressure 133/80 03/15/2019 9:36 AM EDT Pulse 80 03/15/2019 9:36 AM EDT Temperature - - Respiratory Rate - - Oxygen Saturation 97% 03/15/2019 9:36 AM EDT Inhaled Oxygen Concentration - - Weight 85.1 kg (187 lb 9.6 oz) 03/15/2019 9:36 AM EDT Height 157.5 cm (5' 2) 03/15/2019 9:36 AM EDT Body Mass Index 34.31 03/15/2019 9:36 AM EDT documented in this encounter Patient Instructions Patient InstructionsAsia Cisneros MD - 03/15/2019 9:30 AM EDT You should change your sliding scale to the new scale written in your notebook. This correlates to taking 6-8 units of humalog with each meal with additional humalog to bring your high blood sugar downby 30 points as below: When your prednisone dose decreases to 3 mg daily, you should decrease the humalog you are taking with your meals to 4-6 units. sliding scale Your correction dose is 1 unit for every 30 points that your BG is above 150. TAKE the following insulin if your before-meal BG is higher than 150: BG 150-180 take 1 unit BG 181-210 take 2 units BG 211-240 take 3 units BG 241-270 take 4 units BG 271-300 take 5 units BG 301-330 take 6 units BG 331-360 take 7 units BG 361-390 take 8 units BG 391-420 take 9 units and call your doctor If you check your BG three - four hours after a meal - it should be in the target of 80 - 150. If the BG is higher than 150, take another dose of Novolog according to the scale above. You may repeat this every 3 - 4 hours until your BG is less than 150. Do not take Novolog doses closer than 3 - 4 hours apart. Call your doctor if your BG does not come down after three extra doses. documented in this encounter Progress Notes Asia Cisneros MD - 03/15/2019 9:30 AM EDT ENDOCRINOLOGY NEW PATIENT APPOINTMENT Patient Name: Francisca Kong Date of Appointment: 03/15/2019 ID: Francisca Kong is a 74 yoa F with PMH of HTN, HLD, KALEY, psoriatic arthritis, PMR, osteopenia,COPD, depression, PTSD, wet macular degeneration, CAD, who presents to Endocrine clinic 03/15/19 to re-establish for type 2 diabetes. History of Presenting Illness: Diabetes Mellitus Type 2 * Diagnosed (year): 1980s * Last Hgb A1C: 7.9 %, done 02/25/2019 Ms. Kong was previously followed by Edna Mortensen ([facility]). She was last seen 03/07/2015 at which time she was not on any basal insulin (stated caused low BG), but was taking 2 to 4 units of short-acting insulin after meals, occasionally doing injections one to two hours after the meal. At this time victoza was recommended, but was never filled. She has since been followed by her PCP anddiabetes educator. She has started levemir and now has dexcom. - Current DM medications: - Orals: She was on metformin in the past, but didn't continue due to diarrhea. She has never triedother oral diabetes medications. - Injectables: Levemir 12 units QAM and 6 units QPM She takes humalog for meal-associated and insulin sliding scale. She has two insulin sliding scales, both have CF of 15, but one includes meal-coverage (takes if she is eating) and incorporates 6-8 units fixed meal-coverage. She is currently taking prednisone 4 mg daily (decreasing from 20 mg initially, has psoriatic arthritis and hx of PMR and is now followed by Rheumatology outside of [facility]). She plans to decrease to prednisone 3 mg daily this weekend, which she will remain on for a couple of weeks minimum. - Monitors sugars: times a day Examples (range): - fastin-160 mg/dL - pre-prandial: 110-200mg/dL - History of hypoglycemia: 2 weeks ago had BG of 40 mg/dl on Dexcom overnight (notes she took humalog before bed for snack). She confirmed low on fingerstick. She recalls staggering, but states she had no confusion and was able to eat to correct low. She denies any history of seizure/unresponsivenesfrom low BG. - Hospitalized for DM: Never Diabetes-related complications: * Nephropathy: Denies, last Cr 0.9, last A:C ratio: normal * Retinopathy: Had cataract surgery and has wet macular degeneration, last eye exam: last week with ophthalmology in [facility] * Neuropathy: Numbness in feet bilaterally * Autonomic dysfunction: Denies * History of amputations: Denies Lifestyle: Diet History: 2-3 meals/day 1-2 snacks/day * Breakfast: Low sugar yoghurt, 1 hard boiled egg, 1 slice sour dough bread * Lunch: Did not eat yesterday (felt unwell from chicken wings the night before) * Dinner: 1/2 ham sandwich and piece of cheese (sour dough bread) * Snacks: 2 oreo cookies * Desserts: Blueberry pie filling * Drinks: Water, 4 oz of milk twice daily 2019QI Exercise: Cardiac rehab twice weekly and walks regularly Support and Resources: - Visit with leather whitener in the last 2 years: Yes-sees CDE every 2 weeks - Uses patient's portal ([facility]): Yes Past Medical History: Patient Active Problem List [...] pain syndrome G89.4 ??? Food intolerance K90.49 Current Outpatient Medications on File Prior to Visit Medication Sig Dispense Refill ??? magnesium oxide (MAG-OX) 400 mg (241.3 mg magnesium) Tablet Take 400 mg by mouth daily. ??? predniSONE (DELTASONE) 5 mg Tablet TAKE ONE TABLET BY MOUTH EVERY DAY ON TAPER 30 tablet 6 ??? rosuvastatin (CRESTOR) 10 mg Tablet Take 10 mg by mouth three times a week. ??? levalbuterol (XOPENEX) 0.31 mg/3 mL Solution for Nebulization Take 1 ampule by nebulization every 4 hours as needed for Wheezing. ??? NARCAN 4 mg/actuation [place], Non-Aerosol ??? lidocaine (LIDODERM) 5 % Adhesive [...] ONE SUPPOSITORY RECTALLY DAILY NEEDED 5 ??? predniSONE (DELTASONE) 1 mg Tablet Take 1 tablet by mouth daily. Take 4 tablets by mouth daily on taper. (Patient taking differently: Take 1 mg by mouth 3 times daily. Take 4 tablets by mouth dailyon taper.) 150 tablet 6 ??? CorkCRM ULTRA TEST Strip TEST FIVE TIMES A DAY 3 ??? cholecalciferol, Vitamin D3, (VITAMIN D-3) 5,000 unit Tablet Take by mouth daily. ??? LEVEMIR FLEXTOUCH Insulin Pen 4 Units 2 times daily. 12 ??? BD INSULIN PEN NEEDLE UF MINI 31 gauge x /16 Needle USE ONCE DAILY WITH LEVEMIR 4 ??? calcium carbonate 648 mg calcium Tablet Take 650 mg by mouth 3 times daily (with meals). ??? hydrochlorothiazide (HYDRODIURIL) 12.5 mg Tablet as needed. ??? lisinopril (PRINIVIL;ZESTRIL) 10 mg Tablet Take 15 mg by mouth daily. ??? fluticasone (FLONASE) 50 mcg/actuation [place], Suspension daily. ??? FLOVENT HFA 220 mcg/actuation HFA Aerosol [...] 45 mcg/Actuation inhaler 2 Puff(s), Inh, Q6H ??? [DISCONTINUED] DULoxetine (CYMBALTA) 20 mg Capsule, Delayed Release(E.C.) Take 1 capsule by mouth daily. (Patient not taking: Reported on 03/15/2019) 30 tablet 11 ??? [DISCONTINUED] cycloSPORINE (RESTASIS) 0.05 % Dropperette Place 1 drop into both eyes 2 times daily. ??? [DISCONTINUED] diaZEPam (VALIUM) 2 mg tablet Take 1 mg by mouth every 6 hours as needed. Reported on 03/11/2017 ??? [DISCONTINUED] MAGNESIUM CHLORIDE (SLOW-MAG ORAL) Take by mouth daily as needed. No current facility-administered medications on file prior to visit. Allergies: Allergies Allergen Reactions ??? Anesthetics - Amide [...] ??? Methotrexate Other (See Comments) dyspnea ??? Penicillins Shortness Of Breath and Rash ??? Sulfa (Sulfonamide Antibiotics) Hives ??? Iodine And Iodide Containing Products Rash ??? Nsaids (Non-Steroidal Anti-Inflammatory Drug) Palpitations and Other (See Comments) Hypertension ??? Beta-Blockers (Beta-Adrenergic Blocking Agts) ??? Ether Hives ??? Histamine Palpitations SVT's ??? Montelukast Sodium Diarrhea and Nausea And Vomiting ??? Morphine Sulfate Pt requests no morphine. ??? Unable To Find [Unclassified Drug] All Antihistamines. ROS: Constitutional: No tiredness, recent weight change, no heat or cold intolerance Neurological: No headache or weakness. No seizure, fainting or dizziness Eyes: recent vision changes+-vision impaired from MD ENT: No dysphagia, dental issues Cardiovascular: No chest pain or palpitations Respiratory: No cough, wheezing, shortness of breath+-attributes to asthma/COPD GI: Normal appetite. Nausea, vomiting, diarrhea+-attributes to recent food poisoning after eating chicken wings, resolved over weekend, no constipation : No frequent urinary tract infections or polyuria Musculoskeletal: joint aches, muscle pain. No back pain Psychiatric: No depression, anxiety Social History: Lives in [place], [place] with her partner and a medical service dog. 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 Physical Exam: General appearance: pleasant female patient sitting comfortably in chair HEENT: anicteric, MMM CVS: RRR, normal +S1, S2. no murmurs or addd sounds Pulm: Breathing comfortably on RA Extremities: 2+ pulses peripherally, no edema Neuro: Normal monofilament Skin: Healthy appearing without breakdown Pertinent Laboratory Findings: Ref. Range 03/15/2019 12:05 Glucose Lvl Latest Ref Range: 65 - 199 mg/dL 164 25-OH Vit D Total Latest Ref Range: 30 - 100 ng/mL 50 Chol, Total Latest Units: mg/dL 185 HDL Latest Units: mg/dL 71 Chol/HDL Ratio Latest Units: ratio 2.6 Chol/HDL Interpretation Unknown See Note Ref. Range 03/15/2019 12:05 LDL Chol Direct Latest Units: mg/dL 95 Ref. Range 03/15/2019 12:05 TSH Latest Ref Range: 0.27 - 4.20 mcIU/mL 0.84 C-Peptide Latest Ref Range: 0.8 - 5.2 ng/mL 3.3 Ref. Range 03/15/2019 12:09 Alb/Cr Ratio, Random Latest Ref Range: 0 - 29 mcg/mg Cr 18 U Albumin Conc, Random Latest Units: mg/L 11.2 U Creatinine Latest Units: mg/dL 62 Assessment: Francisca Kong is a 73 yoa F with PMH of HTN, HLD, KALEY, psoriatic arthritis, PMR, osteopenia,COPD, depression, PTSD, wet macular degeneration, CAD, who presents to Endocrine clinic 03/15/19 to re-establish for type 2 diabetes. She has had relatively good glycemic control on review of Dexcom with hemoglobin A1c of 7.9%. She did recently have BG as low as 40 mg/dl overnight after taking humalog with snack before bed (combination meal-associated and correction scale). On review of ISS she has been usingCF of 15, which is likely too aggressive (particularly with recent hypoglycemia episode). A new insulin sliding scale was provided today for CF of 30, and she was encouraged to continue with 6-8 units TID with meals, with adjustments to 4-6 units TID when prednisone dosing decreases. Plan: Type 2 diabetes -Continue Levemir 12 units QAM and 6 units QPM -Meal-associated insulin: continue 6-8 units TID before meals and decrease to 4- 6 units TID before meals once prednisone dose reduced -Decrease insulin for correction as below sliding scale Your correction dose is 1 unit for every 30 points that your BG is above 150. TAKE the following insulin if your before-meal BG is higher than 150: BG 150-180 take 1 unit BG 181-210 take 2 units BG 211-240 take 3 units BG 241-270 take 4 units BG 271-300 take 5 units BG 301-330 take 6 units BG 331-360 take 7 units BG 361-390 take 8 units BG 391-420 take 9 units and call your doctor If you check your BG three - four hours after a meal - it should be in the target of 80 - 150. If the BG is higher than 150, take another dose of Novolog according to the scale above. You may repeat this every 3 - 4 hours until your BG is less than 150. Do not take Novolog doses closer than 3 - 4 hours apart. Call your doctor if your BG does not come down after three extra doses. -Normal urine microalbumin/Cr today, continue lisinopril -HDL >70 and LDL<100, continue rosuvastatin Follow up in 3 months. Patient was seen and case discussed with Dr. Laura Cisneros PGY 4 Endocrinology Pager [phone] Carlee Sanchez MD - 03/15/2019 9:30 AM EDT I have seen the patient and reviewed Dr. Cisneros's above history and I agree with the details as written. The assessment and plan were formulated in discussion with me and I agree with them as documented. Carlee Sanchez MD, PhD, FACP, FACE documented in this encounter Plan of Treatment Upcoming Encounters Date Type Specialty Care Team Description 02/26/2023 Office Visit Rheumatology Toño Rodriguez PA [facility], [place] 0375 (Wo rk) documented as of this encounter Procedures Procedure Name Priority Date/Time Associated Diagnosis Comme nts U ALBUMIN/CRE RATIO Routine 03/15/2019 12:09 PM Type 2 diabete s Results for this EDT mellitus treated procedure a re in with insulin the results section. VITAMIN D, Routine 03/15/2019 12:05 PM Type 2 diabetes Resul ts for this 25-HYDROXY EDT mellitus treated procedure a re in with insulin the results section. C-PEPTIDE Routine 03/15/2019 12:05 PM Type 2 diabetes Resul ts for this EDT mellitus treated procedure a re in with insulin the results section. TSH Routine 03/15/2019 12:05 PM Type 2 diabetes Resul ts for this EDT mellitus treated procedure a re in with insulin the results section. LDL CHOLESTEROL, Routine 03/15/2019 12:05 PM Resu lts for this DIRECT EDT procedure are i n the results section. HDL/CHOL PROFILE Routine 03/15/2019 12:05 PM Type 2 diabetes R esults for this EDT mellitus treated procedure a re in with insulin the results section. GLUCOSE, RANDOM Routine 03/15/2019 12:05 PM Type 2 diabetes Re sults for this EDT mellitus treated procedure a re in with insulin the results section. documented in this encounter Results U Albumin/Cre Ratio (03/15/2019 12:09 PM EDT) P athologist Signature Alb/Cr Ratio, 18 0 - 29 [facility] Random mcg/mg Cr [facility] Comment: Reference Ranges: <30 mcg/mg: Normal 30-300 mcg/mg: Moderately increased albu minuria.* >300 mcg/mg: Severely increased albuminu byron. * ACEI or ARB recommended if diabetic; s uggested if BP>130/80 without diabetes ACEI or ARB strongly recommended if di abetic; recommended if BP>130/80 without diabetes Two of three specimens collected within a 3 to 6 month period should be abnormal before considering a patient to have albuminuria. Transient causes: exercise, fever, infection, CHF, marked hyperglycemia or hypertension. Persistent albuminuria indicates CKD and is an independent risk factor for ASCVD. ADA Standards of Medical Care in Diabete s-2016; KDIGO: Kidney International Supplements (2012) 2, 357? 362 U Albumin Conc, Random 11.2 mg/L [facility] U Creatinine 62 mg/dL [facility] Specimen Anatomical Collection Method Collection Time Receive d Time (Source) Location / / Volume Laterality Urine specimen 03/15/2019 12:09 9 (specimen) PM EDT 12:23 PM EDT Resulting Agency Comment Spec In Lab Carlee Sanchez MD URINE ORDERABLES Performing Organization Address [facility] Phon e Number [address] LDL Cholesterol, Direct (03/15/2019 12:05 PM EDT) P athologist Signature LDL Chol 95 mg/dL [facility] Comment: Lowest Risk: <100 mg/dL Lower Risk: 100-129 mg/dL Borderline High Risk: 130-159 mg/dL High Risk: 160-189 mg/dL Very High Risk: >ix=488 mg/dL Specimen Anatomical Collection Method Collection Time Receive d Time (Source) Location / / Volume Laterality Blood specimen Venous Draw / 03/15/2019 12:05 03/15/20 19 2:14 (specimen) Unknown PM EDT PM EDT Resulting Agency Comment Spec In Lab Asia Cisneros MD CHEMISTRY ORDERABLES Performing Organization Address City/[facility] Phon e Number [address] HDL/Cholesterol Profile (03/15/2019 12:05 PM EDT) P athologist Signature Chol, Total 185 mg/dL [facility] Comment: Lower Risk: <200 mg/dL Average Risk: 200-239 mg/dL Higher Risk: >ty=401 mg/dL HDL 71 mg/dL [facility] Comment: Males: ?? Higher Risk: <40 mg/dL Females: ?? HIgher Risk: <50 mg/dL Chol/HDL Ratio 2.6 ratio [facility] Chol/HDL Interpretation See Note [facility] Comment: Lipid management should be guided by a p atient? s ASCVD risk, goals and preferences. ACC/AHA Guidelines recommend high intens ity statin if clinical ASCVD or LDL greater than or equal to 190 mg/dL. http://Sevence.com/NFT-BSI-Jktengyxp Measure LDL if Total Cholesterol minus H DL Cholesterol is greater than 220 mg/dL. Adults aged 40-75 with LDL 70-189 mg/dL should have their 10 year ASCVD risk estimated with the ACC/AHA ASCVD risk es timator http://tools.acc.org/TTJHJ-Prie-Gwgqgrwj r/ Statin should be discussed if risk great er than or equal to 7.5% in non-diabetics. With diabetes, moderate i ntensity statin is recommended if risk less than 7.5%, high intensity if risk g reater than or equal to 7.5%. Annual lipid monitoring on statins is no t necessary. Lifestyle modification is a critical com ponent of ASCVD risk reduction. Specimen Anatomical Collection Method Collection Time Receive d Time (Source) Location / / Volume Laterality Blood specimen 03/15/2019 12:05 9 (specimen) PM EDT 12:19 PM EDT Resulting Agency Comment Spec In Lab Carlee Sanchez MD CHEMISTRY ORDERABLES Performing Organization Address City/State/[place] [address] Vitamin D, 25-Hydroxy (03/15/2019 12:05 PM EDT) athologist Signature 25-OH Vit D 50 30 - 100 [facility] Total ng/mL [facility] Comment: Deficient <10 ng/mL Insufficient 10 to 29 ng/mL Sufficient 30 to 100 ng/mL Potential Intoxication >100 ng/mL According to the US National Osteoporosi s Foundation, Vitamin D concentrations >30 ng/mL are sufficient to protect bone health. ??The National Kidney Foundation has similarly stated that pat ients with Vitamin D concentrations <30ng/mL should be considered to be insu fficient or deficient. http://Sevence.Convrrt/nkf-guidelines http://Sevence.com/nejm-VitD The IDS iSYS Vitamin D Immunoassay detec ts both 25-OH Vitamin D2 and 25-OH Vitamin D3, but only a total Vitamin D c oncentration is reported. Specimen Anatomical Collection Method Collection Time Receive d Time (Source) Location / / Volume Laterality Blood specimen 03/15/2019 12:05 9 1:05 (specimen) PM EDT PM EDT Resulting Agency Comment Spec In Lab Carlee Sanchez MD CHEMISTRY ORDERABLES Performing Organization Address City/[facility]/ZIP Code Phon e Number [address] TSH (03/15/2019 12:05 PM EDT) P athologist Signature TSH 0.84 0.27 - 4.20 [facility] XANDER mcIU/mL [facility] Specimen Anatomical Collection Method Collection Time Receive d Time (Source) Location / / Volume Laterality Blood specimen 03/15/2019 12:05 9 (specimen) PM EDT 12:19 PM EDT Resulting Agency Comment Spec In Lab Carlee Sanchez MD CHEMISTRY ORDERABLES Performing Organization Address City/[facility]/ZIP Code Phon e Number [address] Glucose, random (03/15/2019 12:05 PM EDT) P athologist Signature Glucose Lvl 164 65 - 199 [facility] mg/dL [facility] Comment: Diabetes: >=200 mg/dL plus symp toms Specimen Anatomical Collection Method Collection Time Receive d Time (Source) Location / / Volume Laterality Blood specimen 03/15/2019 12:05 9 (specimen) PM EDT 12:19 PM EDT Resulting Agency Comment Spec In Lab Carlee Sanchez MD CHEMISTRY ORDERABLES Performing Organization Address City/[facility]/ZIP Code Phon e Number [address] C-peptide (03/15/2019 12:05 PM EDT) P athologist Signature C-Peptide 3.3 0.8 - 5.2 ALEIDA TERRELL ng/mL [facility] Specimen Anatomical Collection Method Collection Time Receive d Time (Source) Location / / Volume Laterality Blood specimen 03/15/2019 12:05 9 (specimen) PM EDT 12:19 PM EDT Resulting Agency Comment Spec In Lab Carlee Sanchez MD CHEMISTRY ORDERABLES Performing Organization Address City/State/[place] [address] documented in this encounter Visit Diagnoses Diagnosis Type 2 diabetes mellitus treated with in sulin documented in this encounter Care Teams Mechanical Systems Designer Relationship Specialty Start Date End Date Terri Bowser MD PCP - General Family Medicine 07/02/17 [address] [place] [address] documented as of this encounter
--- OUTSIDE RECORDS SUMMARY | 2022-07-08 09:33 | XMS_ITS | Encounter Summary ---
:1945 Author Organization [facility] [place] [address] Care Team Providers Name Role Phone Ricardo Jennifer Cole APRN Primary Care Provider Encounter Details Date Type Department Care Team Description 04/28/2017 Telephone Rheumatology at [facility] [place] [address] Social History Tobacco Use Types Packs/Day Years Used Date Former Smoker 2 Quit: 07/19/19 77 Smokeless Tobacco: Never Used Alcohol Use Standard Drinks/Week Comments No 0 (1 standard drink = 0.6 oz pure alcoho l) Sex Assigned at Date Recorded Not on file documented as of this encounter Miscellaneous Notes Telephone Encounter - Yola Wilcox LPN - 04/28/2017 3:04 PM EDT Sandra calls to report that she can hardly walk right now. States that she has been on the Enbrel for 12 weeks now it does not seem to working well. Having sciatica pain. She states that she has an appointment on with Salma AGRAWAL and will discuss this at the appointment . She is having her labs drawn at [facility] and will have them fax the results down to us for herappointment. documented in this encounter Plan of Treatment Upcoming Encounters Date Type Specialty Care Team Description 02/26/2023 Office Visit Rheumatology Toño Rodriguez PA [facility] [place] [place] [address] (Wo rk) documented as of this encounter Visit Diagnoses Diagnosis High risk medications (not anticoagulant s) long-term use Encounter for long-term (current) use of other medications documented in this encounter Care Teams Family Service Caseworker Relationship Specialty Start Date End Date Jennifer Silva APRN PCP - General 09/10/10 07/01/17 documented as of this encounter
--- OUTSIDE RECORDS SUMMARY | 2022-07-08 09:33 | XMS_ITS | Encounter Summary ---
:1945 Author Organization [facility] [place] [address] Care Team Providers Name Role Phone Terri Bowser MD Primary Care Provider Reason for Visit Reason Comments Blurred Vision Macular Degeneration Encounter Details Date Type Department Care Team Description 04/27/2018 Office Visit Ophthalmology at [facility] Ella Dominguez AMD (age related [facility] AMD macular Drive [facility] degeneration) [place] [address] OPHTHALMOLOGY DEPT. 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 OS exudative in past, but not recently. No new symptoms. OCT shows no fluid OU. Imp: Stable exudative AMD Plan: No injections. Followed by Dr Rico. RTC 1 year or prn. documented in this encounter Plan of Treatment Upcoming Encounters Date Type Specialty Care Team Description 02/26/2023 Office Visit Rheumatology Toño Rodriguez PA [facility] ER [place], [place] [address] (Wo rk) documented as of this encounter Procedures Procedure Name Priority Date/Time Associated Diagnosis Comme nts OCT RETINA - OU - Routine 04/27/2018 11:56 AM AMD (age related Results for this BOTH EYES EDT macular procedure are i n degeneration) the results section. documented in this encounter Results OCT [id number] EYES (04/27/2018 11:56 AM EDT) Anatomical Region Laterality Modality Other Specimen (Source) Anatomical Location Collection Method / Collectio n Time Received Time / Laterality Volume Narrative 04/27/2018 11:56 AM EDT This result has an attachment that is no t available. OD: flat retina. Old scar. ?OS: flat retina, no fluid. Ella Mcduffie MD OPHTHALMOLOGY SERVICES ORDER KEKE documented in this encounter Visit Diagnoses Diagnosis AMD (age related macular degeneration) Macular degeneration (senile) of retina, unspecified documented in this encounter Care Teams Wig Maker Relationship Specialty Start Date End Date Terri Bowser MD PCP - General Family Medicine 07/02/17 [address] [place] [address] documented as of this encounter
--- OUTSIDE RECORDS SUMMARY | 2022-07-08 09:33 | XMS_ITS | Encounter Summary ---
:1945 Author Organization [place] [address] Care Team Providers Name Role Phone Terri Bowser MD Primary Care Provider Encounter Details Date Type Department Care Team Description 10/15/2017 Telephone Spine Center at [facility] Morgan Matt PA [facility] [place] [address] [place] [address] [phone] (Wo rk) Social History Tobacco Use Types Packs/Day Years Used Date Former Smoker 2 Quit: 07/19/19 77 Smokeless Tobacco: Never Used Alcohol Use Standard Drinks/Week Comments No 0 (1 standard drink = 0.6 oz pure alcoho l) Sex Assigned at Date Recorded Not on file documented as of this encounter Miscellaneous Notes Telephone Encounter - Morgan Matt PA - 10/15/2017 11:36 AM EST Attempted to contact Francisca Kong today to review results of her lumbar spine plain x-rays which was performed at [facility] and received by our office last week. Per my prior discussion on her appointmentwith me, we were going to discuss review of her plain x-rays as well as her candidacy to consider injection procedures after we have reviewed and discussed her lumbar spine plain x-rays. Phone was not answered so message was left for the patient to contact us back and [phone]. documented in this encounter Plan of Treatment Upcoming Encounters Date Type Specialty Care Team Description 02/26/2023 Office Visit Rheumatology Toño Rodriguez PA [facility] DR RHEUMATOLOGY [place], [place] [address] (Wo rk) documented as of this encounter Visit Diagnoses Not on filedocumented in this encounter Care Teams Industry Segment Specialist Relationship Specialty Start Date End Date Terri Bowser MD PCP - General Family Medicine 07/02/17 [address] [place] [address] documented as of this encounter
--- OUTSIDE RECORDS SUMMARY | 2022-07-08 09:33 | XMS_ITS | Encounter Summary ---
:1945 Author Organization [facility] [place] [address] Care Team Providers Name Role Phone Terri Bowser MD Primary Care Provider Reason for Visit Reason Onset Date Comments Prior Authorization 06/14/2019 Humira CF Encounter Details Date Type Department Care Team Description 06/14/2019 Telephone Pharmacy at [facility] [place] Deal Prior Authorization [facility] Shad [facility] (Humira C F) [place] [address] Social History Tobacco Use Types Packs/Day Years Used Date Former Smoker 2 Quit: 07/19/19 79 Smokeless Tobacco: Never Used Alcohol Use Standard Drinks/Week Comments No 0 (1 standard drink = 0.6 oz pure alcoho l) Sex Assigned at Date Recorded Not on file documented as of this encounter Miscellaneous Notes Telephone Encounter - Tico Deal CPHT - 06/16/2019 8:26 AM EDT [facility], Prior Authorization Approval Medication Name: Humira Pen 40 mg/0.4 ml PNKT FILLABLE AT [facility]? yes APPROVAL DATES: 06/14/2019-06/14/2020 SPECIFIC INS REQUIREMENT: Insurance Max 2/30 days CASE/REFERENCE # [id number] APPROVAL NOTIFICATION RECEIVED VIA: Fax COPAY: $0.00 COPAY ASSISTANCE NEEDED?: No NOTES: Insurance Approved this medication for 2 pens for a 30 day supply. Please note: this drug hasa quantity limit of 4 pens for a 28 day supply. If you need an amount greater than this limit, a coverage determination will be required. Telephone Encounter - [place] Deal CPHT - 06/14/2019 11:44 AM EDT [facility], Medication Prior Authorization Patient: Francisca Kong Patient : 1945 Patient Address: [facility] [place] [address] (home) Medication: Humira CF Subscriber Insurance: EGEN Fax: Physician: Alisha Heredia Sent Via: [facility] Rice: [id number] Ref/Case/PA#: Medication Strength Frequency Requested: Humira Pen 40 mg/0.4ml PNKT Inject 40 mg (1 Pen) Subcutaneously Every 14 Days Qty/Day Supply: New Start: Yes Diagnosis & ICD-10 Code: Psoriatic Arthritis L40.50 documented in this encounter Plan of Treatment Upcoming Encounters Date Type Specialty Care Team Description 02/26/2023 Office Visit Rheumatology Toño Rodriguez PA [facility] [address] [place], [place] [address] (Wo rk) documented as of this [...] on filedocumented in this encounter Care Teams Access Rep Relationship Specialty Start Date End Date Terri Bowser MD PCP - General Family Medicine 07/02/17 [address] [place] [address] documented as of this encounter
--- OUTSIDE RECORDS SUMMARY | 2022-07-08 09:33 | XMS_ITS | Encounter Summary ---
:1945 Author Organization [facility] [place] [address] Care Team Providers Name Role Phone Terri Bowser MD Primary Care Provider Reason for Visit Reason Onset Date Comments Medication Refill 06/14/2019 Encounter Details Date Type Department Care Team Description 06/14/[address] [facility] [place], [place] [address] Social History Tobacco Use Types Packs/Day Years Used Date Former Smoker 2 Quit: 07/19/19 77 Smokeless Tobacco: Never Used Alcohol Use Standard Drinks/Week Comments No 0 (1 standard drink = 0.6 oz pure alcoho l) Sex Assigned at Date Recorded Not on file documented as of this encounter Miscellaneous Notes Telephone Encounter - Kelly Centeno RN - 06/14/2019 10:07 AM EDT Change to citrate free Humira documented in this encounter Plan of Treatment Upcoming Encounters Date Type Specialty Care Team Description 02/26/2023 Office Visit Rheumatology Toño Rodriguez PA [facility] DR [place], [place] [address] (Wo rk) documented as of this encounter Visit Diagnoses Not on filedocumented in this encounter Care Teams Video Control Engineer Relationship Specialty Start Date End Date Terri Bowser MD PCP - General Family Medicine 07/02/17 [address] [place] [address] documented as of this encounter
--- OUTSIDE RECORDS SUMMARY | 2022-07-08 09:33 | XMS_ITS | Encounter Summary ---
:1945 Author Organization [facility] [place] [address] Care Team Providers Name Role Phone Terri Bowser MD Primary Care Provider Encounter Details Date Type Department Care Team Description 06/14/2019 Orders Only Rheumatology at [facility] Alisha Heredia APRN [facility] [place] [address] RHEUMATOLOGY DEPT. [phone] [place], [place] [address] (Wo rk) Social History Tobacco [...] Visit Rheumatology Toño Rodriguez PA [facility] ER [address] [place] [address] (Wo rk) documented as of this encounter Visit Diagnoses Not on filedocumented in this encounter Care Teams Family Practice Physician Relationship Specialty Start Date End Date Terri Bowser MD PCP - General Family Medicine 07/02/17 [address] [place] [address] documented as of this encounter
--- OUTSIDE RECORDS SUMMARY | 2022-07-08 09:33 | XMS_ITS | Encounter Summary ---
:1945 Author Organization [place] [address] Care Team Providers Name Role Phone Terri Bowser MD Primary Care Provider Reason for Referral Consultation (Routine) - Closed Specialty Diagnoses / Procedures Referred By Contact Refer red To Contact Orthopaedics Diagnoses Neck stiffness, chronic low back pain/ b/l sciatica/ ask about imaging Alisha Heredia APRN [facility] D [facility] [place] [address] [place] [address] Referral ID Status Reason Start Date Expiration Date Visits V isits Requested Authorized [id number] Closed Consult, 09/15/2017 09/15/2018 1 1 Test & Treat Encounter Details Date Type Department Care Team Description 09/15/2017 Orders Only Rheumatology at [facility] Alisha Heredia, Chronic low back [facility] DOCTOR OF PHARMACY pain, unspecified [facility] back pain laterality, [place] [id number] [address] with sciatica [phone] RHEUMATOLOGY DEP T. presence unspecified [place] [address] Social History Tobacco Use Types Packs/Day [...] Visit Rheumatology Toño Rodriguez PA [facility] ER RHEUMATOLOGY [place] [address] (Wo rk) Scheduled Referrals Name Type Priority Associated Diagnoses Order S chedule Referral to Spine Outpatient Referral Routine Chronic low back Ordered: Center pain, unspecified 09/15/2017 back pain laterality, with sciatica presence unspecified documented as of this encounter Visit Diagnoses Diagnosis Chronic low back pain, unspecified back pain laterality, with sciatica presence unspecified documented in this encounter Care Teams Rehab Department Manager Relationship Specialty Start Date End Date Terri Bowser MD PCP - General Family Medicine 07/02/17 [address] [place] [address] documented as of this encounter
--- OUTSIDE RECORDS SUMMARY | 2022-07-08 09:33 | XMS_ITS | Encounter Summary ---
:1945 Author Organization [facility] [place] [address] Care Team Providers Name Role Phone Terri Bowser MD Primary Care Provider Reason for Visit Consultation (Routine) - Specialty Diagnoses / Procedures Referred By Contact Refer red To Contact Rheumatology Diagnoses Rheumatoid arthritis without rheumatoid factor, unspecified site Fibromyalgia Terri Bowser MD [facility] 5c [address] [place] [address] [place] [address] Fax: Referral ID Status Reason Start Date Expiration Date Visits V isits Requested Authorized [id number] Consult, 04/08/2019 04/07/2020 6 6 Test & Treat Connection Center Encounter Details Date Type Department Care Team Description 04/18/2019 Office Visit [place]ology at [facility] Alisha Heredia, Psoriatic arthritis; [facility] OVERNIGHT ASSOCIATE High risk medication use; [facility] Chronic pain in left shoulde r; [place] [address] CENTER halfway current use of systemic steroi ds [phone] RHEUMATOLOGY DEPT. [place], [place] [address] Social History Tobacco Use Types Packs/Day Years Used Date Former Smoker 2 Quit: 07/19/19 79 Smokeless Tobacco: Never Used Alcohol Use Standard Drinks/Week Comments No 0 (1 standard drink = 0.6 oz pure alcoho l) Sex Assigned at Date Recorded Not on file documented as of this encounter Last Filed Vital Signs Vital Sign Reading Time Taken Comments Blood Pressure 129/65 04/18/2019 12:10 PM EDT Pulse 82 04/18/2019 12:10 PM EDT Temperature 36.9 ??C (98.5 ??F) 04/18/2019 12:10 PM EDT Respiratory Rate - - Oxygen Saturation 99% 04/18/2019 12:10 PM EDT Inhaled Oxygen Concentration - - Weight 85.7 kg (189 lb) 04/18/2019 12:10 PM EDT Height 157.5 cm (5' 2) 04/18/2019 12:10 PM EDT Body Mass Index 34.57 04/18/2019 12:10 PM EDT documented in this encounter Progress Notes Alisha Heredia, OVERNIGHT ASSOCIATE - 04/18/2019 12:15 PM EDT Francisca Kong is a 74 y.o. female seen for ongoing evaluation and management of psoriatic arthritis. She is unaccompanied. Last seen 10/01/2017. INTERVAL HISTORY: Last seen 2016. Followed in [facility]. Reports had been followed by Dr. Moyer. Prior treatments: MTX (trouble breathing), leflunomide (diarrhea); enbrel (unsoecified). Reports all my friends from [place] who are seen at the [place] are starting Humira and prednisone. Has been [...] on routine health maintenance and screening exams. Recent LABS: Component Latest Ref Rng & Units 03/15/2019 Chol, Total mg/dL 185 HDL mg/dL 71 Chol/HDL Ratio ratio 2.6 Chol/HDL Interpretation See Note Alb/Cr Ratio, Random 0 - 29 mcg/mg Cr 18 U Albumin Conc, Random mg/L 11.2 U Creatinine mg/dL 62 25-OH Vit D Total 30 - 100 ng/mL 50 TSH 0.27 - 4.20 mcIU/mL 0.84 Glucose Lvl 65 - 199 mg/dL 164 C-Peptide 0.8 - 5.2 ng/mL 3.3 LDL Chol Direct mg/dL 95 PHYSICAL EXAMINATION: Vitals: 04/18/19 1210 BP: 129/65 Pulse: 82 Temp: 36.9 ??C (98.5 ??F) TempSrc: Oral SpO2: 99% Weight: 85.7 kg (189 lb) Height: 157.5 cm (5' 2) Constitutional: [...] limited in bilateral flexion/rotation. (+) tender at L shoulder. FROM at bilateral upper and lower extremity peripheral joints. (+) tender L wrist and tea CMC joints; (+) synovitis at left wrist, (-) erythema or warmth. Skin: Warm, dry; (-) telangiectasias; (-) ulcers; (-) nail pitting;(-) bruising (-) hyperalgesia (+) allodynia ASSESSMENT : Psoriatic arthritis, responsive to steroid; chronic steroid use; Fibromyalgia; swelling, LEFT wrist; osteoarthritis multiple joints; CMC pain . PLAN/RECOMMENDATIONS: Immediately prior to the start of the procedure, I confirmed the patient's identity, intended procedure, including site/side, the correct patient positioning, site marked, and the availability of special equipment. Procedure Note: Site Lshoulder anterior approach After informed verbal consent obtained, the area was prepped with an iodine solution. Ethyl chloridewas applied as a topical anesthetic. Lidocaine (2 cc) and Depomedrol 40 mg were injected into site without complication. The patient was advised of potential adverse reactions including infection, hyperglycemia, and skin atrophy. The patient was advised to call the clinic immediately for fever, chills, sweats, or increased redness, warmth, pain or swelling over the injection site. Follow pu contact to report on response to injection. Will review xeljanz info (ACR) ?? Discussed clinical trials and awaiting eligibility criteria review. ?? Labs pending at time of follow up PCP on THU. ?? Future -> Consider Cymbalta -> indication OA, FMS -> low dose initially -> 20 mg -> will discuss plan w/PCP prior to initiation ?? Continue prednisone 3 mg po daily ?? Referral - Spine Center -> appointment today. ?? Ongoing calcium and vitamin D dietary intake and supplementation. ?? Labs pending (OSH). ?? Follow up in 12 weeks, sooner for concerns, questions or increased signs/symptoms. documented in this encounter Plan of Treatment Upcoming Encounters Date Type Specialty Care Team Description 02/26/2023 Office Visit Rheumatology Toño Rodriguez PA [facility] [address] [place], [place] [address] (Wo rk) documented as of this encounter Visit Diagnoses Diagnosis Psoriatic arthritis Psoriatic arthropathy High risk medication use Encounter for long-term (current) use of other medications Chronic pain in left shoulder Pain in joint, shoulder region halfway current use of systemic steroi ds Encounter for long-term (current) use of steroids documented in this encounter Administered Medications Inactive Administered Medications - up to 3 most recent administrations Medication Order MAR Action Action Date Dose Rate Site methylPREDNISolone acetate Given 04/18/2019 1:00 40 mg 20-Other (DEPO-Medrol) injection 40 mg PM EDT (document in 40 mg, Intra-articular, ONCE, comment section) 1 dose, On Thu04/18/19 at 1330, Routine documented in this encounter Care Teams Recreation Technician Relationship Specialty Start Date End Date Terri Bowser MD PCP - General Family Medicine 07/02/17 [address] [place] [address] documented as of this encounter
--- OUTSIDE RECORDS SUMMARY | 2022-07-08 09:33 | XMS_ITS | Encounter Summary ---
:1945 Author Organization [facility] [place] [address] Care Team Providers Name Role Phone Jennifer Silva APRN Primary Care Provider Reason for Referral Physical Therapy (Routine) - Closed Specialty Diagnoses / Procedures Referred By Contact Refer red To Contact Physical Therapy Diagnoses Right sided sciatica Alisha Heredia APRN [facility] [place] [address] Referral ID Status Reason Start Date Expiration Date Visits V isits Requested Authorized [id number] Closed Evaluate and 04/30/2017 10/27/2017 12 12 Treat Encounter Details Date Type Department Care Team Description 04/30/2017 Office Visit Rheumatology at [facility] Alisha Heredia, Psoriatic arthritis; [facility]IRO High risk medication use; [facility] [address] current use of sys temic steroids; [place] [address] [facility]ENTER Right-sided low back pain with right-zuleima ed sciatica, unspecified chronicity; [phone] RHEUMATOLOGY Right sided sci atica DEPT. [place], [place] [address] Social History Tobacco Use Types Packs/Day Years Used Date Former Smoker 2 Quit: 07/19/19 79 Smokeless Tobacco: Never Used Alcohol Use Standard Drinks/Week Comments No 0 (1 standard drink = 0.6 oz pure alcoho l) Sex Assigned at Date Recorded Not on file documented as of this encounter Last Filed Vital Signs Vital Sign Reading Time Taken Comments Blood Pressure 155/86 04/30/2017 8:51 AM EDT Pulse 79 04/30/2017 8:51 AM EDT Temperature 36.8 ??C (98.3 ??F) 04/30/2017 8:51 AM EDT Respiratory Rate - - Oxygen Saturation 98% 04/30/2017 8:51 AM EDT Inhaled Oxygen Concentration - - Weight 89.4 kg (197 lb) 04/30/2017 8:51 AM EDT Height 157.5 cm (5' 2) 04/30/2017 8:51 AM EDT Body Mass Index 36.03 04/30/2017 8:51 AM EDT documented in this encounter Progress Notes Alisha Heredia, RESOURCE ANALYST - 04/30/2017 9:00 AM EDT Francisca Kong is a 72 y.o. female seen for ongoing evaluation and management of psoriatic arthritis. She is unaccompanied. Patient Active Problem List Diagnosis Code ??? [...] pain syndrome G89.4 ??? Food intolerance K90.49 INTERVAL HISTORY: Thinks sure-clik x 4 doses, not fully dispensing, so now 8 shots with regular. I think the enbrel starting to work. No peripheral joint swelling, sustained AM joint stiffness or pain. Tapered prednisone 1 mg monthly, was at 6 mg daily. Resumed 7 mg po QAM dose after developing right sided back pain, radiating into buttock. Uncertain precipitant, perhaps cardiaic rehab activity. Had had one week interruption in cardiac, then resumed. Riding bike, doing upper extremity rehab. (-) psoriasis rash, oral ulcers, dry mouth, painful or difficult swallowing. Ongoing calcium throughdiet, vitamin D supplementation per Jennifer Silva APRN. Periodic eye exam -> local site q 6 months, annual. Notes fibromyalgia is contributing to generalized achiness, trying ot sort out symptoms. No fever, chills, recent or recurrent illness or infection. No other changes in medical, surgical,or social history. Is up to date on routine health maintenance and screening exams. Current Outpatient Prescriptions on File Prior to Visit Medication Sig Dispense Refill ??? etanercept (ENBREL) 50 mg/mL (0.98 mL) Syringe Inject 1 mL subcutaneously once a week. 4 mL 2 ??? predniSONE (DELTASONE) 1 mg Tablet Take 1 tablet by mouth daily. Take 4 tablets by mouth daily on taper. 150 tablet 6 ??? predniSONE (DELTASONE) 5 mg Tablet Take 1 tablet by mouth daily. Take 1 tablet by mouth daily ontaper. 30 tablet 6 ??? ONETOUCH ULTRA TEST Strip TEST FIVE TIMES A DAY 3 ??? cholecalciferol, Vitamin D3, (VITAMIN D-3) 5,000 unit Tablet Take by mouth. ??? LEVEMIR FLEXTOUCH Insulin Pen 4 Units 2 times daily. 12 ??? BD INSULIN PEN NEEDLE UF MINI 31 gauge x 3/16 Needle USE ONCE DAILY WITH LEVEMIR 4 ??? calcium carbonate 648 mg calcium Tablet Take 650 mg by mouth 3 times daily (with meals). ??? hydrochlorothiazide (HYDRODIURIL) 12.5 mg Tablet daily. ??? lisinopril (PRINIVIL;ZESTRIL) 10 mg Tablet daily. ??? fluticasone (FLONASE) 50 mcg/actuation [place], Suspension daily. ??? FLOVENT HFA 220 mcg/actuation HFA Aerosol Inhaler daily. ??? cycloSPORINE (RESTASIS) 0.05 % [address] Place 1 drop into both eyes 2 times daily. ??? polyethylene glycol (MIRALAX) [...] ??? rosuvastatin (CRESTOR) 5 mg tablet Take 5 mg by mouth. 5 mg 4 times a week and 10mg 3 times a week ??? diaZEPam (VALIUM) 2 mg tablet Take 1 mg by mouth every 6 hours as needed. Reported on 03/11/2017 ??? digoxin (LANOXIN) 125 mcg tablet Take 62.5 mcg by mouth daily. ??? esomeprazole (NEXIUM) 40 mg capsule Take 40 mg by mouth 2 times daily. ??? acetaminophen (TYLENOL EXTRA STRENGTH) 500 mg tablet Take 1,000 mg by mouth 3 times daily as needed. Reported on 03/11/2017 ??? LEVALBUTEROL HCL (XOPENEX CONCENTRATE INHL) Inhale 1 Nebules into the lungs every 8 hours as needed. ??? MAGNESIUM CHLORIDE (SLOW-MAG ORAL) Take 99 mg by mouth daily as needed. ??? verapamil (CALAN) 40 mg tablet 40 mg, PO, Three times daily (Patient taking differently: 40 mg, PO, Three times daily, and 1 additional if needed) ??? Levalbuterol Tartrate (XOPENEX HFA) 45 mcg/Actuation inhaler 2 Puff(s), Inh, Q6H No current facility-administered medications on file prior to visit. Allergies Allergen Reactions ??? Anesthetics - Amide Type Shortness Of Breath ??? Anesthetics - Marlyn Type- Parabens Shortness Of Breath ??? Citalopram Hydrobromide Shortness Of Breath ??? Clindamycin Anaphylaxis ??? Codeine Phosphate Palpitations ??? Epinephrine Palpitations ??? Escitalopram Oxalate Shortness [...] Unable To Find [Unclassified Drug] All Antihistamines. PHYSICAL EXAMINATION: Vitals: 04/30/17 0851 BP: 155/86 Pulse: 79 Temp: 36.8 ??C (98.3 ??F) TempSrc: Oral SpO2: 98% Weight: 89.4 kg (197 lb) Height: 157.5 cm (5' 2) Constitutional: Pleasant female sitting comfortably. HEENT: Normocephalic; (-) scleral injection, oral mucous membranes moist and intact. (-) lymphadenopathy (-) thyromegaly (-) parotid or submandibular gland enlargement Neuro: Gait forward-bending; even and co-ordinated with use of a cane; speech clearly articulated. CN II-XII grossly intact. Musculoskeletal: Muscle mass bilaterally symmetric. Joint exam: Neck: ROM functional, limited in bilateral flexion/rotation. (-) tender. (+) tender at RSI joint spine. FROM at bilateral upper and lower extremity peripheral joints. (-) tender, (-) synovitis, (-) erythema or warmth. Skin: Warm, dry; (-) telangiectasias; (-) ulcers; (-) nail pitting;(-) bruising ASSESSMENT : R sided sciatica; fibromyalgia; psoriatic arthritis -> joint swelling responsive to steroid; chronic steroid use. PLAN/RECOMMENDATIONS: ?? Enbrel 50 mg sc weekly, syrnge (ADM) without adverse AE, (-) difficulty with ADM. ?? Prednisone 7 mg daily, tapering by 1 mg every 4 weeks, office contact if recurrent swelling. ?? Lidoderm patch to affected area (SI joint). ?? PT referral -> Skip Cortes -> SI joint pain -> stretching, ROM, HEP -> consider imaging/IR injection for persistent or worsening symptoms. ?? Ongoing calcium and vitamin D dietary intake and supplementation. ?? Follow up in 8 weeks, sooner for concerns, questions or increased signs/symptoms. 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
--- OUTSIDE RECORDS SUMMARY | 2022-07-08 09:33 | XMS_ITS | Encounter Summary ---
:1945 Author Organization [facility] [place] [address] Care Team Providers Name Role Phone Terri Bowser MD Primary Care Provider Encounter Details Date Type Department Care Team Description 06/14/2019 Telephone Rheumatology at [facility] [place] [address] Social History Tobacco Use Types Packs/Day Years Used Date Former Smoker 2 Quit: 07/19/19 77 Smokeless Tobacco: Never Used Alcohol Use Standard Drinks/Week Comments No 0 (1 standard drink = 0.6 oz pure alcoho l) Sex Assigned at Date Recorded Not on file documented as of this encounter Miscellaneous Notes Telephone Encounter - Emy Bernal - 06/14/2019 3:15 PM EDT Francisca would like to see you on and she has a three hour drive down to get here. She has another appt on the same day here at [facility]. documented in this encounter Plan of Treatment Upcoming Encounters Date Type Specialty Care Team Description 02/26/2023 Office Visit Rheumatology Toño Rodriguez PA [facility] [place], [place] [address] (Wo rk) documented as of this encounter Visit Diagnoses Not on filedocumented in this encounter Care Teams Hat Presser Relationship Specialty Start Date End Date Terri Bowser MD PCP - General Family Medicine 07/02/17 [address] [place] [address] documented as of this encounter
--- OUTSIDE RECORDS SUMMARY | 2022-07-08 09:33 | XMS_ITS | Encounter Summary ---
:1945 [place] [address] Care Team Providers Name Role Phone Terri Bowser MD Primary Care Provider Encounter Details Date Type Department Care Team Description 07/16/2019 Ancillary Procedure Radiology Library at Aidan Bhatia [facility] [place] [address] UROLOGY [phone] [place], [place] [address] (Wo rk) Social History Tobacco [...] 02/26/2023 Office Visit Rheumatology Toño Rodriguez PA [facility] [address] [place], [place] [address] (Wo rk) documented as of this encounter Goals Goal Patient Goal Associated Recent Patient-Stated? Author Type Problems Progress DH Home Medication Patient No O'Dericr ke, Compliance and Facing Rachael T, Understanding Action Plan [facility] Note: Formatting of this note might be d ifferent from the original. Patient's goal is to decrease pain by 50 % over the next 6 months (current pain 7 out of 10, would like to get down to 3) documented as of this encounter Procedures Procedure Name Priority Date/Time Associated Diagnosis Comme nts FILM LIBRARY Routine 07/16/2019 12:00 AM Results for this STORAGE ONLY CT EDT procedure ar e in ABDOMEN AND PELVIS the resul ts section. documented in this encounter Results Film Library- Storage Only CT Abdomen & Pelvis (07/16/2019 12:00 AM EDT) Specimen (Source) Anatomical Location Collection Method / Collectio n Time Received Time / Laterality Volume Narrative [facility] - 07/20/2019 7:33 PM EDT This exam is auto-finalizing. It's purpo se is for storage only. Lupillo Bhatia MD IMG FILM LIBRARY ORDERABLES Performing Organization Address City/State/ZIP Code Phon e Number [place], [place] documented in this encounter Visit Diagnoses Not on filedocumented in this encounter Care Teams Java Analyst Relationship Specialty Start Date End Date Terri Bowser MD PCP - General Family Medicine 07/02/17 [address] [place] [address] documented as of this encounter
--- OUTSIDE RECORDS SUMMARY | 2022-07-08 09:33 | XMS_ITS | Encounter Summary ---
:1945 Author Organization [facility] [place] [address] Care Team Providers Name Role Phone Terri Bowser MD Primary Care Provider Reason for Visit Auth/Cert Specialty Diagnoses / Procedures Referred By Contact Refer red To Contact Diagnoses stone Procedures PRO CYSTOSCOPY, INSERT URETERAL STENT CYSTO, STENT PLACEMENT (WRVU 2.82) Referral ID Status Reason Start Date Expiration Date Visits Requ ested Visits Authorized [id number] 1 1 Encounter Details Date Type Department Care Team Description 07/21/2019 Hospital Encounter Same Day Program at [facility] [address] [place] [address] [place] [address] [phone] (Wo rk) Social History Tobacco Use Types Packs/Day Years Used Date Former Smoker 2 Quit: 07/19/19 77 Smokeless Tobacco: Never Used Alcohol Use Standard Drinks/Week Comments No 0 (1 standard drink = 0.6 oz pure alcoho l) Sex Assigned at Date Recorded Not on file documented as of this encounter Last Filed Vital Signs Vital Sign Reading Time Taken Comments Blood Pressure 154/62 07/21/2019 3:15 PM EDT Pulse 65 07/21/2019 2:43 PM EDT Temperature 37.4 ??C (99.3 ??F) 07/21/2019 2:43 PM EDT Respiratory Rate 18 07/21/2019 3:15 PM EDT Oxygen Saturation 99% 07/21/2019 3:15 PM EDT Inhaled Oxygen Concentration - - Weight 85.7 kg (189 lb) 07/21/2019 10:52 AM EDT Height 157.5 cm (5' 2) 07/21/2019 10:52 AM EDT Body Mass Index 34.57 07/21/2019 10:52 AM EDT documented in this encounter Discharge Instructions Discharge InstructionsRene Jalloh RN - 07/21/2019 3:33 PM EDT SAME DAY PROGRAM POST-OPERATIVE INSTRUCTIONS CYSTOSCOPY 1. You may have some burning and/or frequency on urination. There may be a pink tinge to the urine. This is normal and will clear in a day or two. If it persists longer call your doctor. 2. It is important to drink at least 2 quarts of liquid for 2-3 days, especially if you are on medication. 3. If you have a large amount of bleeding, severe pain, and/or are unable to pass your urine, call your doctor immediately or go to an emergency room if you live a distance away. Additional equipment and/or instructions: 4. If you are having problems, additional concerns, or questions please call: Urology Clinic 8am-5pm?. Same Day Program 6am-6:30pm? After 5 pm and on the weekend, please call [phone] and ask for the urology resident carbon accountant. [address] ??? [place] [address] ??? [phone] ??? [email or web address] ??? [facility] ??? [facility] ??? [place], [place] POST ANESTHESIA INSTRUCTIONS Go home, rest, use [...] which usually goes away in 12-24 hours. documented in this encounter Medications at Time of Discharge Medication Sig Dispensed Refills Start Date End Date magnesium oxide (MAG-OX) Take 400 mg by mouth 0 400 mg (241.3 mg daily. magnesium) Tablet rosuvastatin (CRESTOR) 10 Take 10 mg by mouth 0 1 mg Tablet three times a week. levalbuterol (XOPENEX) Take 1 ampule by 0 0.31 mg/3 mL Solution for nebulization every 4 Nebulization hours as needed for Wheezing. NARCAN 4 mg/actuation 0 06/04/2017 [place], Non-Aerosol lidocaine (LIDODERM) 5 % Apply 1 [...] fluticasone (FLONASE) 50 daily. 0 12/11/2015 mcg/actuation [place], Suspension polyethylene glycol Take 17 g by [...] 10/04 (XOPENEX HFA) 45 mcg/Actuation inhaler predniSONE (DELTASONE) 1 Take by mouth 9mg [...] documented as of this encounter Progress Notes Víctor Melendrez RN - 07/21/2019 11:12 AM EDT Pt arrived from [facility] via ambulance. IV placed prior to arrival to [facility], right cephalic vein, #18. Flushed with out difficulty. documented in this encounter H&P Delfino Schroeder MD - 07/21/2019 11:15 AM EDT Images from the original note were not included. Urology H&P Francisca Kong 74 y.o. female with history of CAD (s/p PCI to LAD in 2007), HTN, KALEY, GERD, IBS, DM,nephrolithiasis, and Psoriatic Arthritis (on low dose prednisone and Humira) and recently diagnosed 1cm proximal left UPJ stone who presents for cystoscopy and ureteral stent placement. Patient presented to the ED a [facility] two days ago with new onset left flank pain. She was found to have an NAPOLEON with Cr 1.9. She underwent CT A/P which showed a 1cm left UPJ stone with associated hydronephrosis. Her urine was positive for large RBCs and WBCs, but negative for LE, bacteria and nitrites. WBC was 9.0 She was non-urgently transferred to [facility] for management. She denies significant urologic history. However, she reports intermittently passing stones over thelast 5 years. None of these have required surgical intervention. She has passed these stones with MET. She also endorses a history of retaining urine and stool secondary to a back surgery. She doesn't think her bladder works very well, but denies recurrent UTI. No changes to medications, no fevers, chills, headaches, chest pain, new cough, nausea, emesis, constipation, diarrhea, difficulty urinating, one sided numbness or tingling sensation. She endorses new lower extremity edema since receiving IV fluids. Past Medical History: Diagnosis Date ??? Amblyopia [...] OU sx with IOL Dr Kauffman in [facility] ??? INTRAVITREAL INJECTION Left 12/26/08 [facility] ??? INTRAVITREAL INJECTION Left 01/23/09 [facility] ??? INTRAVITREAL INJECTION Left 02/27/09 [facility] No current facility-administered medications on file prior to encounter. Current Outpatient Medications on File Prior to Encounter Medication Sig Dispense Refill ??? adalimumab (HUMIRA,CF, PEN) 40 mg/0.4 mL Pen Injector Kit Inject 0.4 mLs subcutaneously every 14days. 2 kit 3 ??? predniSONE (DELTASONE) 5 mg Tablet Take 2 tablets by mouth daily. 60 tablet 0 ??? metFORMIN (GLUCOPHAGE) 500 mg Tablet Take 500 mg by mouth daily. ??? rosuvastatin (CRESTOR) 10 mg Tablet Take 10 mg by mouth three times a week. ??? levalbuterol (XOPENEX) 0.31 mg/3 mL Solution for Nebulization Take 1 ampule by nebulization every 4 hours as needed for Wheezing. ??? cholecalciferol, Vitamin D3, (VITAMIN D-3) 5,000 unit Tablet Take by mouth daily. ??? LEVEMIR FLEXTOUCH Insulin Pen 4 Units 2 times daily. 12 ??? calcium carbonate 648 mg calcium Tablet Take 650 mg by mouth 3 times daily (with meals). ??? hydrochlorothiazide (HYDRODIURIL) 12.5 mg Tablet as needed. ??? lisinopril (PRINIVIL;ZESTRIL) 10 mg Tablet Take 15 mg by mouth daily. ??? fluticasone (FLONASE) 50 mcg/actuation [place], Suspension daily. ??? meclizine (ANTIVERT) 12.5 mg tablet Take 12.5 mg by mouth as needed. ??? OXYcodone (ROXICODONE) 5 mg immediate release tablet Take 5 mg by mouth daily as needed. ??? OMEGA-3S/DHA/EPA/FISH OIL (OMEGA 3 ORAL) Take [...] daily, and 1 additional if needed) ??? predniSONE (DELTASONE) 1 mg Tablet Take by mouth 9mg per day and decrease by 1mg every 2 weeks until you are at 5mg daily. Take along with 5mg tablets to complete taper. 150 tablet 1 ??? magnesium oxide (MAG-OX) 400 mg (241.3 mg magnesium) Tablet Take 400 mg by mouth daily. ??? NARCAN 4 mg/actuation [place], Non-Aerosol ??? lidocaine (LIDODERM) 5 % Adhesive [...] USE ONCE DAILY WITH LEVEMIR 4 ??? FLOVENT HFA 220 mcg/actuation HFA Aerosol Inhaler 2 times daily. ??? polyethylene glycol (MIRALAX) 17 gram Powder in Packet Take 17 g by mouth daily. ??? Insulin Lispro (HUMALOG KWIKPEN) Insulin Pen Inject 2-8 Units subcutaneously 3 times daily as needed. ??? ascorbic acid (VITAMIN C) 1,000 mg tablet Take 1,000 mg by mouth as needed. ??? aspirin 325 mg tablet Take 325 mg by mouth daily. ??? Levalbuterol Tartrate (XOPENEX HFA) 45 mcg/Actuation inhaler 2 Puff(s), Inh, Q6H Allergies Allergen Reactions ??? Anesthetics - Amide [...] Abdomen: Soft, non-tender/distended Extremities: Warm, no edema : Mild Left CVA tenderness Assessment/Plan 74F with NAPOLEON and obstructing left-sided UPJ stone who presents for cystoscopy and ureteral stent placement (left). The risks and benefits of the procedure have been discussed in detail with the patient. Proceed with scheduled procedure Procedure(s): CYSTO, STENT PLACEMENT (WRVU 2.82) documented in this encounter Miscellaneous Notes Op Note - Delfino Tabor MD - 07/21/2019 2:45 PM EDT Operative Note ?? Patient Name: Francisca Kong : [id number] MR#: [id number] ?? Case Date: 07/21/2019 ?? Surgeon: Surgeon(s) and Role: * Lupillo Bhatia MD - Primary * Delfino Tabor MD - Resident ?? Preoperative diagnosis: stone ?? Postoperative diagnosis: stone ?? Procedure(s): CYSTO, STENT PLACEMENT (WRVU 2.82) ?? Anesthesia: General ?? Findings: Left UPJ filling defect on retrograde Clear left renal pelvis urine sent for culture Placement of 6Fr x Vcm JJ stent in Left ureter ?? Complications: None ?? Estimated Blood Loss: 0 ?? Specimens removed during surgery: * No orders in the log * ?? Fluids: Intraprocedure Crystalloid Total None ?? Fluids: ANES IntraOp Crystalloid (Filter: (AN Fluids) Medications Shown) ?? Medication Calculated Total ?? No medications were administered. ? HPI: Francisca Kong 74 y.o. female with history of CAD (s/p PCI to LAD in 2007), HTN, KALEY, GERD, IBS, DM, nephrolithiasis, and Psoriatic Arthritis (on low dose prednisone and Humira) and recently diagnosed 1cm proximal left UPJ stone who presents for cystoscopy and ureteral stent placement. Procedure Description: The patient was identified in the pre-operative holding area. Consent was verified. The correct side of the procedure was marked. The patient was taken to the operating room and placed supine on the operating table. Patient was placed under MAC. The patient was then moved to thelithotomy position and prepped and draped in the usual sterile fashion. A timeout was performed involving all members of the OR team confirming the patient's identity and planned procedure. Preoperative antibiotics were administered. A 22 Fr rigid cystoscope was inserted into the bladder. A glide wire was placed in the left UO and advanced up to the left renal collecting system as visualized on fluoroscopy. The 5Fr Pollack catheterwas inserted over the wire and up into the left renal collecting system. A left renal pelvis urine specimen was obtained. It was clear, but sent for culture just in case. The glide wire was re-insertedand the 5Fr Pollack Catheter was removed. A 6 Fr by V cm ureteral stent was passed over the wire. The proximal coil was visualized on fluoroscopy to be within the renal pelvis, and the distal coil was seen with direct visualization in the bladder. The bladder was emptied. The cystoscope was removed. The patient tolerated the procedure well and was awakened from anesthesia with no adverse events. The patient was taken to the recovery area in stable condition. Dr. Bhatia, the attending surgeon, was present for the entire procedure. Associated attestation - Lupillo Bhatia MD - 07/21/2019 5:33 PM EDT Attestation: Case Date: 07/21/2019 I was present and I participated during the entire procedure (does not need to include opening and closing). Lupillo Bhatia MD 07/21/2019 Brief Op Note - Delfino Tabor MD - 07/21/2019 2:43 PM EDT Brief Operative Note Patient Name: Francisca Kong : [id number] MR#: [id number] Case Date: 07/21/2019 Surgeon: Surgeon(s) and Role: * Lupillo Bhatia MD - Primary * Delfino Tabor MD - Resident Preoperative diagnosis: stone Postoperative diagnosis: stone Procedure(s): CYSTO, STENT PLACEMENT (WRVU 2.82) Anesthesia: General Findings: Left UPJ filling defect on retrograde Clear left renal pelvis urine sent for culture Placement of 6Fr x Vcm JJ stent in Left ureter Complications: None Estimated Blood Loss: 0 Specimens removed during surgery: * No orders in the log * Fluids: Intraprocedure Crystalloid Total None Fluids: ANES IntraOp Crystalloid (Filter: (AN Fluids) Medications Shown) Medication Calculated Total No medications were administered. Blood: none Urine Output: (no urine output recorded) Drains: 6Fr x Vcm JJ stent in Left UO Disposition: awakened [...] Medication Calculated Total No medications were administered. Plan - Left URS w/LL in 2-3 weeks - UCx added list documented in this encounter Plan of Treatment Upcoming Encounters Date Type Specialty Care Team Description 02/26/2023 Office Visit Rheumatology Toño Rodriguez PA [facility] [address] [place] [address] (Wo rk) documented as of this encounter Goals Goal Patient Goal Associated Recent Patient-Stated? Author Type Problems Progress Home Medication Patient No O'Rour ke, Compliance and Facing Rachael Resendiz, Understanding Action Plan [facility] Note: Formatting of this note might be d ifferent from the original. Patient's goal is to decrease pain by 50 % over the next 6 months (current pain 7 out of 10, would like to get down to 3) documented as of this encounter Procedures Procedure Name Priority Date/Time Associated Diagnosis Comme nts XR FLUORO NO RAD Routine 07/21/2019 2:50 PM Resul ts for this <1HR - OR USE EDT procedure are in the results section. URINE HOLD Routine 07/21/2019 2:35 PM Results f or this EDT procedure are i n the results section. HC URINE CULTURE Routine 07/21/2019 2:32 PM Resul ts for this EDT procedure are i n the results section. CYSTO, STENT Yes 07/21/2019 2:02 PM stone PLACEMENT (WRVU EDT 2.82) POCT GLUCOSE Routine 07/21/2019 10:56 AM Results for this EDT procedure are i n the results section. documented in this encounter Results XR Fluoro No Rad <1Hr - OR Use (07/21/2019 2:50 PM EDT) Specimen (Source) Anatomical Location Collection Method / Collectio n Time Received Time / Laterality Volume Narrative RAD - 07/21/2019 2:53 PM EDT This exam is auto-finalizing. No interpr etation was done. Lupillo Bhatia MD IMG FLUORO ORDERABLES Performing Organization Address City/State/ZIP Code Phon e Number RAD [place], [place] Urine Hold (07/21/2019 2:35 PM EDT) P athologist Signature Urine Hold Sample in [facility]. [facility] Specimen Anatomical Collection Method Collection Time Receive d Time (Source) Location / / Volume Laterality Urine specimen Urine / Unknown 07/21/2019 2:35 PM 1012/2018 3:05 (specimen) EDT PM EDT Comment: LEFT renal pelvis urine culture . Lupillo Bhatia MD URINE ORDERABLES Performing Organization Address City/[facility]/ZIP Code Phon e Number [address] Urine culture Cystoscopic Urine (07/21/2019 2:32 PM EDT) Patholo gist Method Time Signature Urine Culture No growth ALEIDA TERRELL (Less than [address] cfu/ml). LABORATORY Specimen Anatomical Collection Method Collection Time Receive d Time (Source) Location / / Volume Laterality Urine specimen 07/21/2019 2:32 PM 019 3:49 (specimen) EDT PM EDT Comment: LEFT RENAL PELVIS URINE CULTURE . Resulting Agency Comment Spec In Lab Lupillo Bhatia MD MICROBIOLOGY - GENERAL ORDER KEKE Performing Organization Address City/[facility]/[place] [address] POCT Glucose (07/21/2019 10:56 AM EDT) P athologist Signature POC Glucose 163 65 - 199 ALEIDA XANDER mg/dL [facility] Comment: Supplemental ranges: <140 mg/dL before meals <180 mg/dL all other times of the day Specimen Anatomical Collection Method Collection Time Receive d Time (Source) Location / / Volume Laterality Blood specimen 07/21/2019 10:56 9 (specimen) AM EDT 10:56 AM EDT Lupillo Bhatia MD POINT OF CARE TEST ORDERABLE S Performing Organization Address City/[facility]/ZIP Code Phon e Number [address] documented in this encounter Visit Diagnoses Not on filedocumented in this encounter Active and Recently Administered Medications Times are shown in EDT. Scheduled Medication Order 07/19/2019 07/20/2019 07/21/2019 ciprofloxacin (CIPRO) 400 mg in dextrose 5% 200 mL (COMPLETED) 1409 (Given - Provider: Mirna Maddox CRNA) 400 mg, Intravenous, SURFBOARD MAKER TO O.R., 1 dose, Katherine 07/21/19 at 1130, Administer over 60 Minutes, Day of Surgery (Day of Procedure), Indication for (Active or Suspected): Prophylaxis, Restricted Antibiotic : Please indicate the most appropriate c hoice: Pre-approved Indication (State the indication in Comments field) PRN Medication Order 07/19/2019 07/20/2019 07/21/2019 iohexol (OMNIPAQUE) 300 mg/mL solution (CANCELED) 1435 (Given - Provider: Delfino Tabor MD) ONCE PRN, Starting Katherine 07/21/19 at 1435, Until Katherine 07/21/19 at 1757, Intra- Operative (Intra-Procedure), Routine documented in this encounter Care Teams Perfusionist Relationship Specialty Start Date End Date Terri Bowser MD PCP - General Family Medicine 07/02/17 [address] [place] [address] documented as of this encounter
--- OUTSIDE RECORDS SUMMARY | 2022-07-08 09:33 | XMS_ITS | Encounter Summary ---
:1945 Author Organization [facility] [place] [address] Care Team Providers Name Role Phone Jennifer Silva APRN Primary Care Provider Reason for Visit Reason Comments Medication Refill Encounter Details Date Type Department Care Team Description 05/07/2017 Refill Rheumatology at [facility] Alisha Heredia APRN [facility] [place] [address] RHEUMATOLOGY DEPT. [phone] [place], [place] [address] (Wo katelyn) Social History Tobacco Use Types Packs/Day Years [...] 02/26/2023 Office Visit Rheumatology Toño Rodriguez PA [facility] [address] [place] [address] (Wo rk) documented as of this encounter Visit Diagnoses Not on filedocumented in this encounter Care Teams Corporate Paralegal Relationship Specialty Start Date End Date Jennifer Silva APRN PCP - General 09/10/10 07/01/17 documented as of this encounter
--- OUTSIDE RECORDS SUMMARY | 2022-07-08 09:33 | XMS_ITS | Encounter Summary ---
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 Please evaluate Alexis Weber Jillian R, [facility] MD Josiah [facility] [address] [place] [address] [place] [address] Fax: Referral ID Status Reason Start Date Expiration Date Visits V isits Requested Authorized [id number] Closed Specialty 05/04/2019 05/03/2020 1 1 Service Requested Reason for Visit Reason Comments Macular Degeneration Encounter Details Date Type Department Care Team Description 05/04/2019 Office Visit Ophthalmology at [facility] Johnnie Weber Cone dystrophy [facility] [place] [address] [facility] [phone] Dr [place], [place] [address] (Wo rk) Social History Tobacco Use Types Packs/Day Years Used Date Former Smoker 2 Quit: 07/19/19 77 Smokeless Tobacco: Never Used Alcohol Use Standard Drinks/Week Comments No 0 (1 standard drink = 0.6 oz pure alcoho l) Sex Assigned at Date Recorded Not on file documented as of this encounter Patient Instructions Patient InstructionsJosiah Weber MD - 05/04/2019 12:00 PM EDT Cone Dystrophy or Cone/Gustavo Dystrophy documented in this encounter Progress Notes Josiah Weber MD - 05/04/2019 12:00 PM EDT ASSESSMENT/PLAN: No diagnosis found. 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 Rico, thank you for the kind referral. Francisca Kong is a patient with progressive vision loss since the age of 45yo. Today's exam is negative for signs of AMD such as drusen. 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 -Discussed the limited treatment options for this condition but offered the patient a referral to genetic consult at [facility] for possible genetic testing. The patient is very interested and agreed to makethe referral today. -Patient is already involved with [employer]. The patient is already on AREDS2 vitamins, and agreed to continue the off-label use of them. 2. PCIOL OU -monitor for now. Follow up 1 year for DFE, OCT OU Sooner NOEMI Franklin, Venu Bolaños, have performed the documentation for this encounter in the presence of, and acting as a scribe for Josiah Weber MD. I performed the services which were documented by the scribe, and I agree with the accuracy of the documentation in this encounter. Josiah Weber MD, PhD Extended Ophthalmoscopy Indication: No diagnosis found. Technique: A) Indirect ophthalmoscopy with scleral depression B) Slit lamp exam with 90D/78D lens Findings: Main Ophthalmology Exam External Exam Right Left External Normal Normal Slit Lamp Exam Right Left Lids/Lashes Normal Normal Conjunctiva/Sclera White and quiet White and quiet Cornea Clear Clear Anterior Chamber Deep and quiet Deep and quiet Iris Round Round Lens PCIOL PCIOL Fundus Exam Right Left Vitreous PVA Normal Disc Normal Normal C/D Ratio 0.3 0.3 Macula CRS without drusen, atrophic pigmented scar OD > OS Atrophic pigmented scar OD > OS Vessels Normal Normal Periphery Normal Normal documented in this encounter Plan of Treatment Upcoming Encounters Date Type Specialty Care Team Description 02/26/2023 Office Visit Rheumatology Toño Rodriguez PA [facility] [place] [address] (Wo rk) Scheduled Referrals Name Type Priority Associated Diagnoses Order S chedule Referral to Outpatient Referral Routine Cone dystrophy Ordere d: Genetics 05/04/2019 documented as of this encounter Visit Diagnoses Diagnosis Cone dystrophy Other dystrophies primarily involving th e sensory retina documented in this encounter Care Teams Glass Sagger Relationship Specialty Start Date End Date Terri Bowser MD PCP - General Family Medicine 07/02/17 [address] [place] [address] documented as of this encounter
--- OUTSIDE RECORDS SUMMARY | 2022-07-08 09:33 | XMS_ITS | Encounter Summary ---
:1945 Author Organization [facility] [place] [address] Care Team Providers Name Role Phone Jennifer Silva APRN Primary Care Provider Reason for Visit Reason Comments Macular Degeneration 7 month follow up for AMD OU (scar OD) s/p Lucentis OS (2008) Encounter Details Date Type Department Care Team Description 03/11/2017 Office Visit Ophthalmology at [facility] C Romeo Jesus, AMD (age related [facility] MD macular degeneration) [place] [address] CENTER [phone] OPHTHALMOLOGY DEPT [place], [place] [address] Social History Tobacco Use Types Packs/Day Years Used Date Former Smoker 2 Quit: 07/19/19 79 Smokeless Tobacco: Never Used Alcohol Use Standard Drinks/Week Comments No 0 (1 standard drink = 0.6 oz pure alcoho l) Sex Assigned at Date Recorded Not on file documented as of this encounter Progress Notes Romeo Jesus MD - 03/11/2017 10:45 AM EDT ASSESSMENT: 1. AMD (age related macular degeneration) Exam/Findings Today 03/11/17: OD: End stage atrophic/disciform scar. OS: Exudative in past, but not recently. Stable mild RPE changes. 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 Stable vision OU, OCT unchanged from 6 months ago PLAN: Observe Alternate exams every [address] Rico and myself Follow up with Dr. Rico in 6 months for CEE Follow up retina 1 year for DFE/OCT The Ophthalmology scribe for this encounter is VIOLETTA Suero. I performed and personally participated in the cortez and critical portions of the service. I have reviewed/updated the documentation, and confirm that all of the information is accurate as described. Romeo Jesus MD documented in this encounter Plan of Treatment Upcoming Encounters Date Type Specialty Care Team Description 02/26/2023 Office Visit Rheumatology Toño Rodriguez PA [facility] DR RHEUMATOLOGY [place], [place] [address] (Wo rk) documented as of this encounter Procedures Procedure Name Priority Date/Time Associated Diagnosis Comme nts OCT RETINA - OU - Routine 03/11/2017 11:17 AM AMD (age related Results for this BOTH EYES EDT macular procedure are i n degeneration) the results section. documented in this encounter Results OCT [id number] EYES (03/11/2017 11:17 AM EDT) Anatomical Region Laterality Modality Other Specimen (Source) Anatomical Location Collection Method / Collectio n Time Received Time / Laterality Volume Narrative 03/11/2017 11:17 AM EDT Right Eye Quality was good. Scan locations include d subfoveal. Progression has been stable. Findings include subretinal scar ring, abnormal foveal contour. Left Eye Quality was good. Scan locations include d subfoveal. Progression has been stable. Findings include subretinal scar ring, abnormal foveal contour. Romeo Jesus MD OPHTHALMOLOGY SERVICES ORDER KEKE documented in this encounter Visit Diagnoses Diagnosis AMD (age related macular degeneration) Macular degeneration (senile) of retina, unspecified documented in this encounter Care Teams Collection Card Clerk Relationship Specialty Start Date End Date Jennifer Silva, FURNITURE REMOVALIST'S ASSISTANT PCP - General 09/10/10 07/01/17 documented as of this encounter
--- OUTSIDE RECORDS SUMMARY | 2022-07-08 09:33 | XMS_ITS | Encounter Summary ---
:1945 Author Organization [facility] [place] [address] Care Team Providers Name Role Phone Terir Bowser MD Primary Care Provider Reason for Visit Reason Onset Date Comments Medication Refill 10/16/2017 Encounter Details Date Type Department Care Team Description 10/16/2017 Refill Rheumatology at [facility] Cassidy Melendrez, RN [facility] dyllan GENERAL [place] [address] [facility] [place] [phone] [place] [phone] (Wo rk) Social History Tobacco Use Types [...] PA [facility] [address] [place], [place] [address] (Wo rk) documented as of this encounter Visit Diagnoses Not on filedocumented in this encounter Care Teams Senior Hris Analyst Relationship Specialty Start Date End Date Terri Bowser MD PCP - General Family Medicine 07/02/17 [address] [place] [address] documented as of this encounter
--- OUTSIDE RECORDS SUMMARY | 2022-07-08 09:33 | XMS_ITS | Encounter Summary ---
:1945 Author Organization [facility] Address [facility] [place] [address] Care Team Providers Name Role Phone Terri Bowser MD Primary Care Provider Reason for Referral Consultation (Routine) - Closed Specialty Diagnoses / Procedures Referred By Contact Refer red To Contact Diagnoses Neck stiffness Chronic bilateral low back pain with bilateral sciatica Alisha Heredia APRN [facility] [place] [address] Referral ID Status Reason Start Date Expiration Date Visits V isits Requested Authorized [id number] Closed Consult, 07/02/2017 12/29/2017 1 1 Test & Treat Encounter Details Date Type Department Care Team Description 07/02/2017 Office Visit Rheumatology at [facility] Alisha Heredia, Psoriatic arthritis; [facility] MANAGER ER High risk medication use; [facility] musical string maker current use of sys temic steroids; [place] [address] CENTER Neck stiffness; [phone] RHEUMATOLOGY Chronic bilater al low back pain with bilateral sciatica DEPT. [place], [place] [address] Social History Tobacco Use Types Packs/Day Years Used Date Former Smoker 2 Quit: 07/19/19 77 Smokeless Tobacco: Never Used Alcohol Use Standard Drinks/Week Comments No 0 (1 standard drink = 0.6 oz pure alcoho l) Sex Assigned at Date Recorded Not on file documented as of this encounter Last Filed Vital Signs Vital Sign Reading Time Taken Comments Blood Pressure 134/83 07/02/2017 10:45 AM EDT Pulse 94 07/02/2017 10:45 AM EDT Temperature 36.7 ??C (98.1 ??F) 07/02/2017 10:45 AM EDT Respiratory Rate - - Oxygen Saturation 96% 07/02/2017 10:45 AM EDT Inhaled Oxygen Concentration - - Weight 89.4 kg (197 lb) 07/02/2017 10:45 AM EDT Height 157.5 cm (5' 2) 07/02/2017 10:45 AM EDT Body Mass Index 36.03 07/02/2017 10:45 AM EDT documented in this encounter Progress Notes Alisha Heredia, MANAGER ER - 07/02/2017 11:00 AM EDT Francisca Kong is a 72 [...] G89.4 ??? Food intolerance K90.49 INTERVAL HISTORY: Enbrel injection followed by 2 days of loose stool. No fever, chills, weakness, nausea or blood in stool. Joints are doing a little better. Stilll low back pain, mildly improving with physical therapy. TENSunit at home. Lidoderm patch with min-mod benefit. Knees still stiff and painful, no swelling. Boneon bone. Prednisone 6 mg, now, tapering once monthly. Continues cardiac rehab -> riding bike, doing upper extremity rehab. (+) psoriasis rash at elbows,(-) oral ulcers, dry mouth, painful or difficult swallowing. Ongoing calcium through diet, vitamin Dsupplementation per PCP. Periodic eye exam -> local site q 6 months, annual. No recent or recurrent illness or infection. No other changes in medical, surgical, or social history. Is up to date on routine health maintenance and screening exams. Current Outpatient Prescriptions on File Prior to Visit Medication Sig Dispense Refill ??? ENBREL 50 mg/mL (0.98 mL) Syringe INJECT 1 SYRINGE SUBCUTANEOUSLY ONCE A WEEK 4 mL 11 ??? BD INSULIN PEN NEEDLE UF SHORT 31 gauge x 5/16 Needle USE THREE TIMES A DAY WITH HUMALOG INSULIN 3 ??? nitroGLYcerin (NITROSTAT) 0.4 mg Tablet, Sublingual as needed. ??? BISAC-EVAC 10 mg Suppository USE ONE SUPPOSITORY RECTALLY DAILY NEEDED 5 ??? lidocaine (LIDODERM) 5 % Adhesive Patch, Medicated Apply 1 patch onto the skin daily. (leave on for 12 hours and remove for 12 hours) 30 patch 0 ??? predniSONE (DELTASONE) 1 mg Tablet Take [...] PEN NEEDLE UF MINI 31 gauge x 16 Needle USE ONCE DAILY WITH LEVEMIR 4 ??? calcium carbonate 648 mg calcium Tablet Take 650 mg by mouth 3 times daily (with meals). ??? hydrochlorothiazide (HYDRODIURIL) 12.5 mg Tablet as needed. ??? lisinopril (PRINIVIL;ZESTRIL) 10 mg Tablet daily. ??? fluticasone (FLONASE) 50 mcg/actuation Dixon, Suspension daily. ??? FLOVENT HFA 220 mcg/actuation [...] [Unclassified Drug] All Antihistamines. PHYSICAL EXAMINATION: Vitals: 07/02/17 1045 BP: 134/83 Pulse: 94 Temp: 36.7 ??C (98.1 ??F) TempSrc: Oral SpO2: 96% Weight: 89.4 kg (197 lb) Height: 157.5 [...] AE, (-) difficulty with ADM. ?? Prednisone 6 mg, with taper by 0.5 mg 11/02 of the month. ?? Referral - Spine Center. ?? Lidoderm patch to affected area (SI joint). ?? PT ongoing -> Skip Cortes -> SI joint pain -> stretching, ROM, HEP -> consider imaging/IR injection for persistent or worsening symptoms. ?? Ongoing calcium and vitamin D dietary intake and supplementation. ?? Follow up in 12 weeks, sooner for concerns, questions or increased signs/symptoms. documented in this encounter Plan of Treatment Upcoming Encounters Date Type Specialty Care Team Description 02/26/2023 Office Visit Rheumatology Toño Rodriguez PA [facility] [address] [place], [place] [address] (Wo rk) Scheduled Referrals Name Type Priority Associated Diagnoses Order S chedule Referral to Spine Outpatient Referral Routine Neck stiff ness Ordered: Center Chronic bilateral 07/02/2017 low back pain with bilateral sciatica documented as of this encounter Visit Diagnoses Diagnosis Psoriatic arthritis Psoriatic arthropathy High risk medication use Encounter for long-term (current) use of other medications retirement current use of systemic steroi ds Encounter for long-term (current) use of steroids Neck stiffness Torticollis, unspecified Chronic bilateral low back pain with tea ateral sciatica documented in this encounter Care Teams Jacquard Card Lacer Relationship Specialty Start Date End Date Terri Bowser MD PCP - General Family Medicine 07/02/17 [address] [place] [address] documented as of this encounter
--- OUTSIDE RECORDS SUMMARY | 2022-07-08 09:33 | XMS_ITS | Encounter Summary ---
:1945 Author Organization [facility] [place] [address] Care Team Providers Name Role Phone Terri Bowser MD Primary Care Provider Reason for Visit Reason Comments Medication Refill Encounter Details Date Type Department Care Team Description 04/13/2017 Refill [place]ology at [facility] Alisha Heredia APRN [facility] [place] [address] RHEUMATOLOGY DEPT. [phone] [place], [place] [address] (Wo rk) Social History Tobacco [...] Toño Rodriguez PA [facility] [address] [place], [place] [address] (Wo rk) documented as of [...] on filedocumented in this encounter Care Teams Flight Steward Relationship Specialty Start Date End Date Terri Bowser MD PCP - General Family Medicine 07/02/17 [address] [place] [address] documented as of this encounter
--- OUTSIDE RECORDS SUMMARY | 2022-07-08 09:33 | XMS_ITS | Encounter Summary ---
:1945 Author Organization [facility] [place] [address] Care Team Providers Name Role Phone Terri Bowser MD Primary Care Provider Reason for Visit Reason Onset Date Comments Other 06/02/2019 Encounter Details Date Type Department Care Team Description 06/02/2019 Telephone Rheumatology at [facility] Noe Manzanares, [place] [address] Social History Tobacco Use Types Packs/Day Years Used Date Former Smoker 2 Quit: 07/19/19 79 Smokeless Tobacco: Never Used Alcohol Use Standard Drinks/Week Comments No 0 (1 standard drink = 0.6 oz pure alcoho l) Sex Assigned at Date Recorded Not on file documented as of this encounter Miscellaneous Notes Telephone Encounter - Noe Manzanares RN - 06/02/2019 2:59 PM EDT Images from the original note were not included. Maria A Suarez, DO Noe Manzanares, RN; Alisha Heredia, BLASTING ENTRY SPECIALIST Caller: Unspecified (Today, ??1:09 PM) ?? Hi Noe, Let's increase her prednisone to 10 mg daily now and I'll discuss with Salma when she returns. Patient updated regarding above and expressed understanding. Prescription routed. Telephone Encounter - Noe Manzanares RN - 06/02/2019 2:00 PM EDT Patient calls clinic about increased pain. Was given a printout about new pill (Xeljanz). States was going to f/u with Carlene regarding PsA group and if qualifies. Wasn't sure d/t fibro and age. Was taking Enbrel previously and was helping. Hasnot been taking Enbrel d/t Shingles. States has not taken Humira (CF), unsure why. Takes oxycodone 5mg bid. ES Tylenol tid. Shoulder better with one injection. Needs other shoulder but lives far. She is concerned she may have mtx. Would prefer to wait until UPHOLSTERY DEPARTMENT SUPERVISOR Yan before significant changes to medications. Prednisone has helped with joint discomfort. 3 mg Prednisone Currently. Would be willing to take 10 mg for current pain. BS 182 today after lunch (115 often) does have some elevations though 300. Has peridontal infection, not on any abx. Doing listerine and issues managed at this time. Currently, every joint bothersome. Shoulder hurt. In morning, fingers are swollen and difficult to bend. Ankles, knees and elbows are swollen as well. No fever or chills. No c/o sob or c/p. No n/v. No gi issues. Patient calls to inquire about managing current pain as well as an update regarding long-term management of issues. Will update clinic provider covering for UPHOLSTERY DEPARTMENT SUPERVISOR Yan while she is away and have also advised to patient to contact clinic early next week upon return of UPHOLSTERY DEPARTMENT SUPERVISOR. documented in this encounter Plan of Treatment Upcoming Encounters Date Type Specialty Care Team Description 02/26/2023 Office Visit Rheumatology Toño Rodriguez PA [facility] [address] [place], [place] [address] (Wo rk) documented as of this encounter Visit Diagnoses Not on filedocumented in this encounter Care Teams Forward Air Controller/Air Officer Relationship Specialty Start Date End Date Terri Bowser MD PCP - General Family Medicine 07/02/17 [address] [place] [address] documented as of this encounter
--- OUTSIDE RECORDS SUMMARY | 2022-07-08 09:33 | XMS_ITS | Encounter Summary ---
:1945 [place] [address] Care Team Providers Name Role Phone Terri Bowser MD Primary Care Provider Reason for Visit Reason Onset Date Comments Other 03/16/2018 Encounter Details Date Type Department Care Team Description 03/16/2018 Telephone Ophthalmology at [facility] Romeo Harris MD [facility] [place] [address] OPHTHALMOLOGY DEPT [phone] [place], [place] [address] (Wo rk) Social History Tobacco Use Types Packs/Day Years Used Date Former Smoker 2 Quit: 07/19/19 79 Smokeless Tobacco: Never Used Alcohol Use Standard Drinks/Week Comments No 0 (1 standard drink = 0.6 oz pure alcoho l) Sex Assigned at Date Recorded Not on file documented as of this encounter Miscellaneous Notes Telephone Encounter - Noemy Pickard - 03/16/2018 9:38 AM EDT Patient Scheduled Telephone Encounter - Ning Pratt - 03/16/2018 8:10 AM EDT Patient called cancelling her appointment with Dr. Jesus today because she is not feeling well. Please call her back to reschedule. documented in this encounter Plan of Treatment Upcoming Encounters Date Type Specialty Care Team Description 02/26/2023 Office Visit Rheumatology Toño Rodriguez PA [facility] ER RHEUMATOLOGY [place], [place] [address] (Wo rk) documented as of this encounter Visit Diagnoses Not on filedocumented in this encounter Care Teams Hadoop Engineer Relationship Specialty Start Date End Date Terri Bowser MD PCP - General Family Medicine 07/02/17 [address] [place] [address] documented as of this encounter
--- OUTSIDE RECORDS SUMMARY | 2022-07-08 09:33 | XMS_ITS | Encounter Summary ---
:1945 Author Organization [place] [address] Care Team Providers Name Role Phone Terri Bowser MD Primary Care Provider Reason for Referral Consultation (Routine) - Closed Specialty Diagnoses / Procedures Referred By Contact Refer red To Contact Diagnoses Neck stiffness Osteoarthritis of lumbar spine, unspecified spinal osteoarthritis complication status Alisha Heredia APRN Spine, [facility] D [facility] RHEUMATOLOGY DEPT. [address] [place] [address] [place] [address] [place] [address] Phone: Fax: Referral ID Status Reason Start Date Expiration Date Visits V isits Requested Authorized [id number] Closed Consult, 09/04/2017 03/03/2018 1 1 Test & Treat Encounter Details Date Type Department Care Team Description 09/04/2017 Orders Only Rheumatology at [facility] [place] Alisha Heredia, Neck stiffness; [facility] WARDROBE ATTENDANT Osteoarthritis of lumbar spine, unspecif ied spinal [place] [address] [place] [address] RHEUMATOLOGY DEPT. [place], [place] [address] Social History Tobacco Use Types [...] Visit Rheumatology Toño Rodriguez PA [facility] ER RHEUMATOLOGY [place], [place] [address] (Wo rk) Scheduled Referrals Name Type Priority Associated Diagnoses Order S chedule Referral to Spine Outpatient Referral Routine Neck stiff ness Ordered: Center Osteoarthritis of 09/04/2017 lumbar spine, unspecified spinal osteoarthritis complication status documented as of this encounter Visit Diagnoses Diagnosis Neck stiffness Torticollis, unspecified Osteoarthritis of lumbar spine, unspecif ied spinal osteoarthritis complication status documented in this encounter Care Teams Waste Collection Driver Relationship Specialty Start Date End Date Terri Bowser MD PCP - General Family Medicine 07/02/17 [address] [place] [address] documented as of this encounter
--- OUTSIDE RECORDS SUMMARY | 2022-07-08 09:33 | XMS_ITS | Encounter Summary ---
:1945 Author Organization [facility] [place] [address] Care Team Providers Name Role Phone Terri Bowser MD Primary Care Provider Reason for Visit Reason Comments Neck Pain Back Pain loss of bladder function a nd sciatica pain Consultation (Routine) - Closed Specialty Diagnoses / Procedures Referred By Contact Refer red To Contact Orthopaedics Diagnoses Neck stiffness, chronic low back pain/ b/l sciatica/ ask about imaging Alisha Heredia, JAIRO Jacobson Spine 3d [facility] [place] [address] [place] [address] Referral ID Status Reason Start Date Expiration Date Visits V isits Requested Authorized [id number] Closed Consult, 09/15/2017 09/15/2018 1 1 Test & Treat Encounter Details Date Type Department Care Team Description 10/01/2017 [facility]; AISHA Kessler Spondylolisthesis at L4-L5 level [facility] [address], [place] [address] [phone] Social History Tobacco Use Types Packs/Day Years Used Date Former Smoker 2 Quit: 07/19/19 79 Smokeless Tobacco: Never Used Alcohol Use Standard Drinks/Week Comments No 0 (1 standard drink = 0.6 oz pure alcoho l) Sex Assigned at Date Recorded Not on file documented as of this encounter Progress Notes Morgan Matt PA - 10/01/2017 2:20 PM EST Subjective: Francisca Kong is a 72-year-old female seen today for chief complaint of back pain greater than chronic neck pain and stiffness. She reports having had these symptoms for several years. Shehad been seen in the past at our spine center for similar pattern of complaints in 2010. Currently she reports the pain over the upper to low lumbosacral region and at times she does have the sensationof neck stiffness related to these symptoms. She finds the back is the most bothersome problem and this is more significant than her leg pain which she is quite diffuse and nondermatomal in its overalldistribution and is worse on the right than the left generally over the buttocks and posterior thighs. She does find that her symptoms improved with sitting and the use of a shopping cart and there is otherwise worsening with standing and walking more than 5 minutes. She has done over 6 weeks of physical therapy locally around [facility] with the [facility]. She does report other long-standing history of pain diagnoses such as fibromyalgia,and neuropathic pain. She also mentions to me that she has significant history of cardiopulmonary disease, with COPD, reactive airway disease, and prior history of DE, with cardiac stent placement performed in 2007. She denies prior spine surgery. Shedenies tobacco or alcohol use. She lives quite a distance from our facility in the [facility] which is 2-3 hours away. She mentions generally needing someone else to drive her to [facility] for appointments. 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 Objective: This is an obese 72-year-old female appears her stated age and is in no acute distress she ambulates with a forward based gait. Toe walking and heel walking is without weakness. She does stand with some degree of thoracolumbar kyphosis, otherwise level shoulders and pelvis without marked spinal deformity. Motor and sensory examination show full stress and intact sensation throughout. Lumbar flexion to about 50??, lumbar extension only to neutral, with increasing back pain on extension. Noclonus or Babinski noted. Painless hip range of motion. Palpable peripheral pulses. Symmetric +2 reflexes at both knees and both ankles. Plain x-rays of the lumbar spine from 2009 was reviewed today. There is no significant for findings of what appears to be a degenerative spondylolisthesis L5-S1, grade 1 without clearly noted pars defects. DEXA scan from 2013 shows a T score of -3, consistent with osteoporosis. Assessment/plan: Francisca Kong is a 72-year-old female seen today for chief complaint of chronic low back pain, in the context of long-standing history of other chronic pain diagnoses, with an elevated burden of illness, heart disease, obesity. Overall issue appears to be axial low back pain. She does have a minimum of pattern of lower extremity symptoms but finds that the lower extremity pain is generally quite tolerable and her primary complaint is with regards to her active pain over the midline. This appears to be facet joint mediated, given worsening on extension maneuvers as would be expected with her spondylolisthesis. I discussed with Ms. Kong pursuing further operative and nonoperative options for this. With her prior history of cardiac disease,and apparent prior history of osteoporosis, we discussed that she is a rather poor surgical candidate, given the fact that her spondylolisthesis would require decompression and fusion, and she informs me, that she agrees with this and would like to pursue further at [facility], first and then talk to my afterwards nonoperative management. Following discussion we'll proceed as follows. She requested to have her imaging studies performed locally instead of our facility due to her issues and traveling. On external order was placed for her to undergo an updated series of plain x-rays ofher lumbar spine. We did discuss that she can be a good candidate for lumbar medial branch blocks and radiofrequency ablation and that we do have visiting physicians at our pain management service can perform procedures at [facility] which is quite close and more accessible to her area. She informs me however that she would like to have the plain x-rays performed, then discuss with myself over the phone regarding the results of these x-rays in proceeding with the injection procedures mentioned above. documented in this encounter Plan of Treatment Upcoming Encounters Date Type Specialty Care Team Description 02/26/2023 Office Visit Rheumatology Toño Rodriguez PA [facility] RHEUMATOLOGY [place], [place] [address] (Wo rk) documented as of this encounter Visit Diagnoses Diagnosis Chronic neck and back pain Spondylolisthesis at L4-L5 level documented in this encounter Care Teams Banking Consultant Relationship Specialty Start Date End Date Terri Bowser MD PCP - General Family Medicine 07/02/17 [address] [place] [address] documented as of this encounter
--- OUTSIDE RECORDS SUMMARY | 2022-07-08 09:33 | XMS_ITS | Encounter Summary ---
:1945 Author Organization [facility] [place] [address] Care Team Providers Name Role Phone Terri Bowser MD Primary Care Provider Reason for Visit Auth/Cert Specialty Diagnoses / Procedures Referred By Contact Refer red To Contact Diagnoses stone Procedures PRO CYSTOSCOPY, INSERT URETERAL STENT CYSTO, STENT PLACEMENT (WRVU 2.82) Referral ID Status Reason Start Date Expiration Date Visits Requ ested Visits Authorized [id number] 1 1 Encounter Details Date Type Department Care Team Description 07/21/2019 Surgery Main Operating Room Lupillo Bhatia, CYSTO, STENT PLACEMENT Samanta Marrero MD (WRVU 2.82) [facility] [place] [address] [place] [address] [phone] (Wo rk) Social History Tobacco Use Types Packs/Day Years Used Date Former Smoker 2 Quit: 07/19/19 77 Smokeless Tobacco: Never Used Alcohol Use Standard Drinks/Week Comments No 0 (1 standard drink = 0.6 oz pure alcoho l) Sex Assigned at Date Recorded Not on file documented as of this encounter Last Filed Vital Signs Vital Sign Reading Time Taken Comments Blood Pressure 141/54 07/21/2019 10:52 AM EDT Pulse 50 07/21/2019 10:52 AM EDT Temperature 36.5 ??C (97.7 ??F) 07/21/2019 10:52 AM EDT Respiratory Rate 16 07/21/2019 10:52 AM EDT Oxygen Saturation 100% 07/21/2019 10:52 AM EDT Inhaled Oxygen Concentration - - [...] pm and on the weekend, please call [phone] and ask for the urology resident manager flight operations. [address] ??? [place] [address] ??? [phone] ??? [email or web address] ??? [facility] ??? [facility] ??? .[place], [place] POST ANESTHESIA INSTRUCTIONS Go home, rest, [...] for Wheezing. NARCAN 4 mg/actuation 0 06/04/2017 [place], Non-Aerosol lidocaine (LIDODERM) 5 % Apply 1 [...] fluticasone (FLONASE) 50 daily. 0 12/11/2015 mcg/actuation [place], Suspension polyethylene glycol Take 17 g by [...] as of this encounter Progress Notes Víctor Melendrez, RN - 07/21/2019 11:12 AM EDT [facility]. IV placed prior to arrival to [facility], right cephalic vein, #18. Flushed with out difficulty. documented in this encounter H&P Notes Delfino Tabor MD - 07/21/2019 11:15 AM EDT Images [...] placement. Patient presented to the ED a [facility] two days ago with new onset left flank pain. She was found to have an NAPOLEON with Cr 1.9. She underwent CT A/P which showed a 1cm left UPJ stone with associated hydronephrosis. Her urine was positive for large RBCs and WBCs, but negative for LE, bacteria and nitrites. WBC was 9.0 She was non-urgently transferred to [facility] for management. She denies significant urologic history. [...] OU sx with IOL Dr Kauffman in [facility] ??? INTRAVITREAL INJECTION Left 12/26/08 Lucentis [...] mouth daily. ??? fluticasone (FLONASE) 50 mcg/actuation [place], Suspension daily. ??? meclizine (ANTIVERT) 12.5 mg [...] by mouth daily. ??? NARCAN 4 mg/actuation [place], Non-Aerosol ??? lidocaine (LIDODERM) 5 % Adhesive [...] Note ?? Patient Name: Francisca Kong : [id number] MR#: [id number] ?? Case Date: 07/21/2019 ?? Surgeon: Surgeon(s) [...] Operative Note Patient Name: Francisca Kong : [id number] MR#: [id number] Case Date: 07/21/2019 Surgeon: Surgeon(s) and Role: [...] Rodriguez PA [facility]HE[facility] [place], [place] [address] (Wo rk) documented as of [...] STENT Yes 07/21/2019 2:02 PM stone PLACEMENT (VU EDT 2.82) POCT GLUCOSE Routine 07/21/2019 10:56 AM Results for this EDT procedure are i n the results section. documented in this encounter Results XR Fluoro No Rad <1Hr - OR Use (07/21/2019 2:50 PM EDT) Specimen (Source) Anatomical Location Collection Method / Collectio n Time Received Time / Laterality Volume Narrative DH RAD - 07/21/2019 2:53 PM EDT This exam is auto-finalizing. No interpr etation was done. Lupillo Bhatia MD IMG FLUORO ORDERABLES Performing Organization Address City/State/ZIP Code Phon e Number RAD RAD [place], [place] Urine Hold (07/21/2019 2:35 PM EDT) athologist Signature Urine Hold Sample in [facility]. [facility] Specimen Anatomical Collection Method Collection Time Receive d Time (Source) Location / / Volume Laterality Urine specimen Urine / Unknown 07/21/2019 2:35 PM 1012/2018 3:05 (specimen) EDT PM EDT Comment: LEFT renal pelvis urine culture . Lupillo Bhatia MD URINE ORDERABLES Performing Organization Address City/[facility]/ZIP Code Phon e Number [address] Urine culture Cystoscopic Urine (07/21/2019 2:32 PM EDT) Patholo gist Method Time Signature Urine Culture No growth SAMANTA TERRELL (Less than [address] cfu/ml). LABORATORY Specimen Anatomical Collection Method Collection Time Receive d Time (Source) Location / / Volume Laterality Urine specimen 07/21/2019 2:32 PM 019 3:49 (specimen) EDT PM EDT Comment: LEFT RENAL PELVIS URINE CULTURE . Resulting Agency Comment Spec In Lab Lupillo Bhatia MD MICROBIOLOGY - GENERAL ORDER KEKE Performing Organization Address City/[facility]/[place] [address] POCT Glucose (07/21/2019 10:56 AM EDT) P athologist Signature POC Glucose 163 65 - 199 [facility] XANDER mg/dL [facility] Comment: Supplemental ranges: <140 mg/dL before meals <180 mg/dL all other times of the day Specimen Anatomical Collection Method Collection Time Receive d Time (Source) Location / / Volume Laterality Blood specimen 07/21/2019 10:56 9 (specimen) AM EDT 10:56 AM EDT Lupillo Bhatia MD POINT OF CARE TEST ORDERABLE S Performing Organization Address City/[facility]/[place] [address] documented in this encounter Visit Diagnoses Not on filedocumented in this encounter Administered Medications Inactive Administered Medications - up to 3 most recent administrations Medication Order MAR Action Action Date Dose Rate Site iohexol (OMNIPAQUE) 300 Given 07/21/2019 2:35 PM 6 mLs 19- Surgical Site mg/mL solution EDT ONCE PRN, Starting on Katherine 07/21/19 at 1435, Until Katherine 07/21/19 at 1757, Intra-Operative (Intra-Procedure), Routine documented in this encounter Active and Recently Administered Medications Times are shown in EDT. Scheduled Medication Order 07/19/2019 07/20/2019 07/21/2019 ciprofloxacin (CIPRO) 400 mg in dextrose 5% 200 mL (COMPLETED) 1409 (Given - Provider: Mirna Maddox CRNA) 400 mg, Intravenous, FINISHED GOODS PLANNER TO O.R., 1 dose, Katheirne 07/21/19 at 1130, Administer over 60 Minutes, [...] Routine documented in this encounter Care Teams Combination Welder Relationship Specialty Start Date End Date Terri Bowser MD PCP - General Family Medicine 07/02/17 [address] [place] [address] documented as of this encounter
--- OUTSIDE RECORDS SUMMARY | 2022-07-08 09:33 | XMS_ITS | Encounter Summary ---
:1945 Author Organization [facility] [place] [address] Care Team Providers Name Role Phone Terri Bowser MD Primary Care Provider Reason for Visit Reason Onset Date Comments Triage 05/09/2019 Encounter Details Date Type Department Care Team Description 05/09/2019 Telephone Rheumatology at [facility] [place] [address] Social History Tobacco Use Types Packs/Day Years Used Date Former Smoker 2 Quit: 07/19/19 79 Smokeless Tobacco: Never Used Alcohol Use Standard Drinks/Week Comments No 0 (1 standard drink = 0.6 oz pure alcoho l) Sex Assigned at Date Recorded Not on file documented as of this encounter Miscellaneous Notes Telephone Encounter - Kelly Centeno RN - 05/10/2019 8:05 AM EDT Images from the original note were not included. Maria A Suarez, DO to Me ?? 05/09/19 5:57 PM Labs reviewed and all stable. OK to send her a copy. Maria A Weldon Telephone Encounter - Kelly Centeno RN - 05/09/2019 4:18 PM EDT Patient calls asking for lab results from 04/23 to be reviewed and mailed to her home address. I will notify her provider of lab receipt for review, and mail her the labs as requested. I welcomed her to call back at anytime if needed. documented in this encounter Plan of Treatment Upcoming Encounters Date Type Specialty Care Team Description 02/26/2023 Office Visit Rheumatology Toño Rodriguez PA [facility] RHEUMATOLOGY [place], [place] [address] (Wo rk) documented as of this encounter Visit Diagnoses Not on filedocumented in this encounter Care Teams Spray Crew Relationship Specialty Start Date End Date Terri Bowser MD PCP - General Family Medicine 07/02/17 [address] [place] [address] documented as of this encounter
--- OUTSIDE RECORDS SUMMARY | 2022-07-08 09:33 | XMS_ITS | Encounter Summary ---
:1945 Author Organization [place] [address] Care Team Providers Name Role Phone Terri Bowser MD Primary Care Provider Encounter Details Date Type Department Care Team Description 10/15/2017 Telephone Spine Center at [facility] Morgan Matt PA [facility] [place] [address] [place] [address] [phone] (Wo rk) Social History Tobacco Use Types Packs/Day Years Used Date Former Smoker 2 Quit: 07/19/19 79 Smokeless Tobacco: Never Used Alcohol Use Standard Drinks/Week Comments No 0 (1 standard drink = 0.6 oz pure alcoho l) Sex Assigned at Date Recorded Not on file documented as of this encounter Miscellaneous Notes Telephone Encounter - Morgan Matt PA - 10/15/2017 5:05 PM EST Had a phone conversation with Ms. Kong today. She mentions to me a new incident of having fallen off a stool about 1 week ago, about 25 inches off the floor falling on her tailbone and having significant back pain and coccygeal pain ever since primarily over the midline. At time she does have some thigh pain/leg pain with this but mostly is back and tailbone pain. Her symptoms have been progressiveover the past week without much improvement and she is expressing some concerns. We discussed for this that it may be prudent to obtain imaging with plain x-rays, and she was agreeable to have pain x-rays of the sacrum and coccyx, and the lumbar spine [facility] I would review these to see if there are any indications to consider specific treatment should there be a fracture. She expressed understanding. I advised her in the meanwhile that it may be prudent for her to consider further options such as using a doughnut pillow which would certainly helpher tailbone pain and she mentions that she will try to get this locally at [facility]. I also advised her that she should alternate between ice and heat, and that I may be more helpful given the acute nature of her pain. She'll otherwise be continuing with her other oral medications for pain control. We otherwise discussed the results of her plain x-rays which I reviewed and this does show spondylolisthesis L4-L5 secondary to facet degenerative changes, similar in extent her imaging studies, such as her CT scan of the abdomen and pelvis from October 2015 and prior plain x-rays from several years ago. There is otherwise disc degeneration noted at the lower thoracic levels and at the L5-S1 level. I advised her that should there be no indication of any acute fracture or dislocation on her updatedimaging studies, it may be prudent for her to consider injection procedures with our Pain Interventional physicians who travel to [facility]. We will plan on contacting back once she has the imaging studies of the sacrum, coccyx, and lumbar spine performed. documented in this encounter Plan of Treatment Upcoming Encounters Date Type Specialty Care Team Description 02/26/2023 Office Visit Rheumatology Toño Rodriguez PA [facility] [address] [place] [address] (Wo rk) documented as of this encounter Visit Diagnoses Diagnosis Fall with injury, initial encounter Low back pain, non-specific Coccydynia Other disorder of coccyx documented in this encounter Care Teams Director Service Relationship Specialty Start Date End Date Terri Bowser MD PCP - General Family Medicine 07/02/17 [address] [place] [address] documented as of this encounter
--- OUTSIDE RECORDS SUMMARY | 2022-07-08 09:33 | XMS_ITS | Encounter Summary ---
:1945 [place] [address] Care Team Providers Name Role Phone Terri Bowser MD Primary Care Provider Encounter Details Date Type Department Care Team Description 10/16/2017 Hospital Encounter Radiology Library at [facility], Ria Maxwell [facility] [place] [address] [address] SPINE CENTER [phone] [place], [place] [address] (Wo rk) Social History Tobacco [...] for Wheezing. NARCAN 4 mg/actuation 0 06/04/2017 [place], Non-Aerosol lidocaine (LIDODERM) 5 % Apply 1 [...] fluticasone (FLONASE) 50 daily. 0 12/11/2015 mcg/actuation [place], Suspension polyethylene glycol Take 17 g by [...] Visit Rheumatology Toño Rodriguez PA [facility] [address] [place], [place] [address] (Wo rk) documented as of this encounter Procedures Procedure Name Priority Date/Time Associated Diagnosis Comme nts FILM LIBRARY Routine 10/16/2017 12:00 AM Pain Results for this STORAGE ONLY DX EST procedure ar e in SPINE the results section. documented in this encounter Results Film Library- Storage Only DX Spine (10/16/2017 12:00 AM EST) Specimen (Source) Anatomical Location Collection Method / Collectio n Time Received Time / Laterality Volume Narrative YAN - 10/16/2017 2:51 PM EST This exam is for storage only and is aut o-finalizing. Ran Rios MD IMKelsey FILM LIBRARY ORDERABLES Performing Organization Address City/State/ZIP Code Phon e Number [place], [place] documented in this encounter Visit Diagnoses Diagnosis Pain Generalized pain documented in this encounter Care Teams Admissions Consultant Relationship Specialty Start Date End Date Terri Bowser MD PCP - General Family Medicine 07/02/17 [address] [place] [address] documented as of this encounter
--- OUTSIDE RECORDS SUMMARY | 2022-07-08 09:33 | XMS_ITS | Encounter Summary ---
:1945 Author Organization [facility] [place] [address] Care Team Providers Name Role Phone Terri Bowser MD Primary Care Provider Reason for Visit Reason Onset Date Comments Other 10/16/2017 Encounter Details Date Type Department Care Team Description 10/16/2017 Telephone Spine Center at [facility] Hussein [place] [address] Social History Tobacco Use Types Packs/Day Years Used Date Former Smoker 2 Quit: 07/19/19 79 Smokeless Tobacco: Never Used Alcohol Use Standard Drinks/Week Comments No 0 (1 standard drink = 0.6 oz pure alcoho l) Sex Assigned at Date Recorded Not on file documented as of this encounter Miscellaneous Notes Telephone Encounter - Hussein Mccall RN - 10/16/2017 5:10 PM EST Patient was contacted following review of lumbar xray by AISHA Gilman, Patient was informed that the lumbar xrays do not show any acute fracture, sacrum/coccyx films did not get done. [facility] and patient will schedule an appointment to have them completed. 10/22/17 Received report/image from 10/21/17 Xray of sacrum and coccyx, this was reviewed by Mr. Matt, this also showed no acute fracture. Patient was contacted and informed, she reports that she also just met with her PCP today and discussed her pain s/p fall and PCP has referred her for PT. She will f/u when she decides to go ahead withinjection as Mr. Matt discussed with her. documented in this encounter Plan of Treatment Upcoming Encounters Date Type Specialty Care Team Description 02/26/2023 Office Visit Rheumatology Toño Rodriguez PA [facility] RHEUMATOLOGY [place], [place] [address] (Wo rk) documented as of this encounter Visit Diagnoses Not on filedocumented in this encounter Care Teams Mechanical Adjuster Relationship Specialty Start Date End Date Terri Bowser MD PCP - General Family Medicine 07/02/17 [address] [place] [address] documented as of this encounter
--- OUTSIDE RECORDS SUMMARY | 2022-07-08 09:33 | XMS_ITS | Encounter Summary ---
:1945 Author Organization [place] [address] Care Team Providers Name Role Phone [place], Jennifer Cole APRN Primary Care Provider Reason for Visit Reason Onset Date Comments Prior Authorization 02/26/2017 Encounter Details Date Type Department Care Team Description 02/26/2017 Telephone Rheumatology at [facility] Odilia Vill[place] [address] Social History Tobacco Use Types Packs/Day Years Used Date Former Smoker 2 Quit: 07/19/19 77 Smokeless Tobacco: Never Used Alcohol Use Standard Drinks/Week Comments No 0 (1 standard drink = 0.6 oz pure alcoho l) Sex Assigned at Date Recorded Not on file documented as of this encounter Miscellaneous Notes Telephone Encounter - Odilia Villalba - 04/08/2017 3:46 PM EDT LEFT VM & SENT MYD MSG Telephone Encounter - Odilia Villalba - 04/03/2017 12:17 PM EDT RESUBMITTED VIA [facility] [facility] Telephone Encounter - Odilia Villalba - 03/23/2017 1:49 PM EDT REFAXED VIA [facility] [facility] Telephone Encounter - Odilia Villalba - 02/26/2017 1:03 PM EDT Medication Prior Authorization [place] Medication name/dose/directions: ENBREL 50MG - INJ 1X WEEKLY Rationale for request: PSORIATIC ARTHRITIS Health plan: [employer] Authorizing marketing representative name: FRANKLYN Faxed to health plan on: 02/26/17 Health plan decision: APPROVED Quantity approved: Authorization number: [id number] Start date: 04/03/17 End date: 04/03/18 documented in this encounter Plan of Treatment Upcoming Encounters Date Type Specialty Care Team Description 02/26/2023 Office Visit Rheumatology Toño Rodriguez PA [facility] RHEUMATOLOGY [place], [place] [address] (Wo rk) documented as of this encounter Visit Diagnoses Not on filedocumented in this encounter Care Teams Boat Canvas Installer Relationship Specialty Start Date End Date Jennifer Silva APRN PCP - General 09/10/10 07/01/17 documented as of this encounter
--- OUTSIDE RECORDS SUMMARY | 2022-07-08 09:33 | XMS_ITS | Encounter Summary ---
:1945 Author Organization [facility] [place] [address] Care Team Providers Name Role Phone Terri Bowser MD Primary Care Provider Reason for Visit Reason Comments Medication Management Medication Refill Encounter Details Date Type Department Care Team Description 06/15/2019 Specialty Pharmacy Pharmacy at [facility] Rachael Resendiz RPH Manageia nt; [facility] [place] [id number] Social History Tobacco Use Types Packs/Day Years Used Date Former Smoker 2 Quit: 07/19/19 77 Smokeless Tobacco: Never Used Alcohol Use Standard Drinks/Week Comments No 0 (1 standard drink = 0.6 oz pure alcoho l) Sex Assigned at Date Recorded Not on file documented as of this encounter Progress Notes Rachael Brandon RPH - 06/15/2019 1:35 PM EDT Specialty Pharmacy Consultation; Rachael Brandon RPH Comprehensive Medication Management (CMM) Francisca Kong Diagnosis: Psoriatic Arthritis Therapy Start Date: TBD Contact in person or via telephone: telephone Ms. Francisca Kong is a 74 y.o. (1945) female who was contacted in regard to specialty medication. Spoke with patient regarding Humira . A review of the medication therapy was performed. The medication was Filled as scheduled, and all medication related questions and concerns were addressed. The specialty pharmacy staff will follow up with the patient 5-7 days prior to next refill. Is the patient willing to proceed with the Clinical Assessment? Yes Summary and Recommendations: Francisca Kong was contacted via telephone for a review of Humira for the treatment of psoriatic arthritis. Patient was educated on the Humira labeled black box warnings regarding the risk of serious infections including tuberculosis and malignancies. Discussed other precautions with Humira including anaphylaxis/hypersensitivity and hepatitis B reactivation. Patient was educated on the importance of infection prevention including best practices for hand hygiene and the annual flu vaccine. Discussed the need to avoid live vaccines during treatment. Dose hold parameters were reviewed including suspected/known infection, prescribed antibiotic therapy, or scheduled surgery. Patient agrees to contact the clinic to review dose hold in these settings. Educated patient on the potential side effects of Humira inc luding injection site reaction, headache, rash, and infections such as URTI/sinusitis. Discussed with patient that it may take 3-4 months to experience the full benefit of Humira. A review of dosing, storage, and administration was completed. Patient was educated on the dosing schedule, 40 mg subcutaneously every 2 weeks. Patient was made aware that Humira must be stored in the refrigerator and remains stable at room temperature for 14 days. Education of injection technique wasperformed verbally over the phone and I encouraged patient to call at time of first injection if sheneeds to be walked through the process in real time. Patient was advised on proper site rotation, site sterilization, and allowing the medication to reach room temperature prior to injection. Patient will be provided with a sharps container and disposal of pens was discussed. As the patient has used En brel in the past and currently uses insulin injections, I am confident in her ability to inject herself. Patient rates her current quality of life as a 9 out of 10, even though her pain is also at a 7 out of 10, she still gets herself out of the house most days. She is hopeful that this medication will help to decrease her pain in the near future. I have no recommendations at this time. Clinic follow-up needed: no Allergies and Drug intolerance: Allergies Allergen Reactions [...] calculate BMI. Medication Reconciliation Discrepancies (compared to [facility] med list) -none Medication Adherence Demonstrates understanding of importance of adherence: yes Informant: patient Reliability of informant: reliable Provider-estimated medication adherence level: good Reasons for non-adherence: no problems identified Adherence tools used: calendar, directed education Support network for adherence: healthcare provider Confirmed plan for next specialty medication refill: delivery by pharmacy Refills needed for supportive medications: not needed Medication List: Current Outpatient Medications Medication Sig Note Dispense Refill ??? adalimumab (HUMIRA,CF, PEN) 40 [...] needed for Wheezing. ??? NARCAN 4 mg/actuation [place], Non-Aerosol 07/02/2017: Received from: External Pharmacy ??? [...] 04/30/2017: Received from: External Pharmacy 5 ??? predniSONE (DELTASONE) 1 mg Tablet Take 1 tablet by mouth daily. Take 4 tablets by mouth daily on taper. (Patient taking differently: Take 1 mg by mouth 3 times daily. Take 4 tablets by mouth dailyon taper.) 04/18/2019: 3 mg daily 150 tablet 6 ??? ONETOUCH ULTRA TEST Strip [...] External Pharmacy ??? fluticasone (FLONASE) 50 mcg/actuation [place], Suspension daily. 12/26/2015: Received from: External Pharmacy [...] PPD 08/01/2004, 08/20/2005 Assessment and Recommendations: Title Type of Medication Management: chronic disease management Referred By: provider Recipient: beneficiary Provider: plan sponsor pharmacist Visit Type: Misc New Pt Method of Contact: by telephone Cognitive Ability: good Drug Interactions Provided the patient with educational material regarding drug interactions: yes Patient Counseling Counseled the patient on the following: reviewed medication changes since last visit, medication safety precautions education provided, drug interaction education provided to patient, doses and administration discussed, safe handling, storage, and disposal discussed, possible adverse effects and management discussed, possible drug and prescription drug interactions discussed, possible drug and OTC drug and food interactions discussed, lab monitoring and follow-up discussed, therapeutic rationale discussed, cost of medications and cost implications discussed, adherence and missed doses discussed, pharmacy contact information discussed, health goals discussed, monitoring medication discussed, over the counter products discussed, preventative care discussed, reminder to refill or pick out hand medication discussed, self-monitoring discussed, start medication discussed, stop medication discussed, timing of medications discussed, vaccination discussed Drug Medication Management Summary Topics discussed: reviewed medication changes since last visit, medication safety precautions education provided, drug interaction education provided to patient, doses and administration discussed, safe handling, storage, and disposal discussed, possible adverse effects and management discussed, possible drug and prescription drug interactions discussed, possible drug and OTC drug and food interactions discussed, lab monitoring and follow-up discussed, therapeutic rationale discussed, cost of medications and cost implications discussed, adherence and missed doses discussed, pharmacy contact information discussed, health goals discussed, monitoring medication discussed, over the counter products discussed, preventative care discussed, reminder to refill or pick out hand medication discussed, self-monitoring discussed, start medication discussed, stop medication discussed, timing of medications discussed, vaccination discussed Time spent: 16-30 min Treatment Outcomes 06/15/2019 1338 Disease progression: Stable [...] mitigation strategies, and interruptions in therapy: Yes Physical Assessment: Functional limitations identified: no Cognitive limitations identified: no Concern regarding orientation/memory: no Concern with reasoning/judgement: no Is patient a fall risk: no Other needed information: no Social Assessment: Does the patient have a primary customer care team coach? no Patient has emergency contact on file: Yes Does patient need referral to aids social worker: No Does patient need referral to advocacy group: No Physical and Home Health Assessment: Is the patient able to store their medication as directed? Yes Is the patient in a safe home environment? Yes Do you have a support network? Yes Reviewed potential home safety hazards: Yes Economic Assessment: Patient is agreeable to medication copay: Yes Copay Amount: $0.00 Day Supply: 56 Date Needed: TBD Copay assistance required: no Therapy Assessment: Current Medication Dosing/Route/Frequency: Humira 40mg/0.4ml inject the contents of 1 pen every 14 days Appropriate Therapy: Yes Current joints affected: all joints Current pain rating (1-10): 7 Estimated duration of morning joint stiffness: about 3 hours Estimated number of recent flares: yes - over the summer Recent systemic corticosteroid use: yes - currently on prednisone 10mg and will be tapering down starting tomorrow (06/16) Expected Outcome: decrease pain and increase mobility Patient's goals: Goals ??? DH Home Medication Compliance and Understanding Patient's goal is to decrease pain by 50% over the next 6 months (current pain 7 out of 10, would like to get down to 3) Patient's Problems/Needs: none Care Plan Reviewed and Approved by both Pharmacist and Patient: Yes Monitoring requirements for prescribed medication: Improvement of symptoms,TB screening, HBV screening, CBC, signs/symptoms of active infections, heart failure, hypersensitivity, and malignancy Interventions (if applicable): No Educational information or adherence tools provided: Yes Additional equipment/supplies required: yes - sharps container Pharmacist follow-up needed: No Informed patient of specialty pharmacy services: Yes -Patient will be provided with welcome packet: Yes Date to be provided: TBD Delivery Method: mail -Patient will be provided with Rights & Responsibilities: Yes Date to be provided: TBD Delivery Method: mail -Patient is aware a licensed pharmacist is available 24 hours a day, 7 days a week to discuss medication-related questions or concerns: Yes -Patient verbalizes understanding of the common side effect profile of their medication. The patientis able to call 911 or seek urgent care if signs/symptoms of allergy or harmful adverse reactions occur: Yes Patient understands no changes to current drug regimen were made at the appointment and that [facility] is providing recommendations (summary located at top of note) for provider review and follow up. Rachael Brandon RPH 06/15/19 1:38 PM documented in this encounter Plan of Treatment Upcoming Encounters Date Type Specialty Care Team Description 02/26/2023 Office Visit Rheumatology Toño Rodriguez PA [facility] RHEUMATOLOGY [place], [place] [address] (Wo rk) documented as of this encounter Goals Goal Patient Goal Associated Recent Patient-Stated? Author Type Problems Progress DH Home Medication Patient No Asya moralez, Compliance and Facing Rachael Resendiz, Understanding Action Plan [facility] Note: Formatting of this note might be d ifferent from the original. Patient's goal is to decrease pain by 50 % over the next 6 months (current pain 7 out of 10, would like to get down to 3) documented as of this encounter Visit Diagnoses Not on filedocumented in this encounter Care Teams Asphalt Screed Operator Relationship Specialty Start Date End Date Terri Bowser MD PCP - General Family Medicine 07/02/17 [address] [place] [address] documented as of this encounter
--- OUTSIDE RECORDS SUMMARY | 2022-07-08 09:34 | XMS_ITS | Encounter Summary ---
:1945 Author Organization [facility] [place] [address] Care Team Providers Name Role Phone SagadahocJennifer APRN Primary Care Provider Reason for Visit Reason Onset Date Comments Prior Authorization 10/16/2016 Enbrel SureClick - A pproved Encounter Details Date Type Department Care Team Description 10/16/2016 Telephone Rheumatology at [facility] Layla Vasquez Prior Authorization [facility] [place] [address] Social History Tobacco Use Types Packs/Day Years Used Date Former Smoker 2 Quit: 07/19/19 77 Smokeless Tobacco: Never Used Alcohol Use Standard Drinks/Week Comments No 0 (1 standard drink = 0.6 oz pure alcoho l) Sex Assigned at Date Recorded Not on file documented as of this encounter Miscellaneous Notes Telephone Encounter - Layla Vasquez - 10/16/2016 9:23 AM EST Medication Prior Authorization Dr. Heredia Medication name/dose/directions: Enbrel SureClick 50 mg/mL (0.98 mL) subcutaneous pen injector, inject once a week. Rationale for request: psoriatic arthritis Health plan: [employer] Authorizing claim representative name: n/a Faxed to health plan on: 09/04/16 Health plan decision: Approved Quantity approved: 02/13 Authorization number: [id number] Start date: 09/02/16 End date: 09/02/17 Patient notified? n/a Pharmacy notified? n/a documented in this encounter Plan of Treatment Upcoming Encounters Date Type Specialty Care Team Description 02/26/2023 Office Visit Rheumatology Toño Rodriguez PA [facility] [address], [place] [address] (Wo rk) documented as of this encounter Visit Diagnoses Not on filedocumented in this encounter Care Teams Product Management Specialist Relationship Specialty Start Date End Date Jennifer Silva APRN PCP - General 09/10/10 07/01/17 documented as of this encounter
--- OUTSIDE RECORDS SUMMARY | 2022-07-08 09:34 | XMS_ITS | Encounter Summary ---
:1945 Author Organization [facility] [place] [address] Care Team Providers Name Role Phone Jennifer Ledesma APRN Primary Care Provider Encounter Details Date Type Department Care Team Description 04/16/2016 Office Visit Rheumatology at [facility] Alisha Heredia, Psoriatic arthritis; [facility] [employer] intermodal customer service current use of systemic steroi ds; [facility] MEDICAL Medication monitoring encoun [facility]; [place] [address] CENTER Psoriasis; [phone] RHEUMATOLOGY Swelling of brian nt, wrist, left DEPT. [place], [place] [address] Social History Tobacco Use Types Packs/Day Years Used Date Former Smoker 2 Quit: 07/19/19 77 Smokeless Tobacco: Never Used Alcohol Use Standard Drinks/Week Comments No 0 (1 standard drink = 0.6 oz pure alcoho l) Sex Assigned at Date Recorded Not on file documented as of this encounter Last Filed Vital Signs Vital Sign Reading Time Taken Comments Blood Pressure 119/74 04/16/2016 1:20 PM EDT Pulse 86 04/16/2016 1:20 PM EDT Temperature 36.8 ??C (98.2 ??F) 04/16/2016 1:20 PM EDT Respiratory Rate - - Oxygen Saturation 97% 04/16/2016 1:20 PM EDT Inhaled Oxygen Concentration - - Weight 84.4 kg (186 lb) 04/16/2016 1:20 PM EDT Height 157.5 cm (5' 2) 04/16/2016 1:20 PM EDT Body Mass Index 34.02 04/16/2016 1:20 PM EDT documented in this encounter Progress Notes Alisha Heredia, TE[employer] READ[employer] - 04/16/2016 6:55 AM EDT Francisca Kong is a 71 y.o. female seen for ongoing evaluation and [...] ??? Stomatitis K12.1 ??? 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 Neuropathy G62.9 ??? Chronic pain syndrome G89.4 ??? Food intolerance K90.4 INTERVAL HISTORY: Reports significant stress PTSD related town politics and associated legal action. Hurts all over. Stiffness in hands and feet, without swelling, carpal tunnel diagnosis in recent weeks, (L) and wearing a resting wrist splint. Current dose of prednisone is 2.5 mg daily. No OTC NSAIDs. 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 Report/path not available for review. Reports passed a kidney stone. Thinks urica arabella tested. Unaware of result. Not available for review. HgbA1c = 8.3. Periodic follow up with JENNIFER LEDESMA APRN for monitoring diabetes and HTN. Periodic eye exam -> next scheduled on 06/30/2016. Continues to feel fibromyalgia is contributingto generalized achiness. No fever, chills, recent or recurrent illness or infection. Sees [facility] routinely. Cardiology in coming week. No other changes in medical, surgical, or social history. Is up to date on routine health maintenance and screening exams. ROS: GEN: (-) fever; (-) night sweats; (-) chills; (-) weight gain; (-) fatigue HEENT: (-) dry eyes; (-) eye pain; (-) oral ulcers; (+) dry mouth; (-) dysphagia CVS: (-) chest pain; (-) palpitations; (-) pedal edema PULM: (-) shortness of breath; (+) MODI; (-) wheezes; (-) cough; (-) pleuritic pain GI: (-) N/V; (-) abdominal pain; (-) change in appetite; (-) diarrhea : not assessed MS: (-) muscle weakness; (-) paresthesias ENDO: (-) thyroid disorders; (+) diabetes NEURO: (-) weakness; (-) paresthesias; (-) gait instability SKIN: (-) Raynauds; (-) ulcers; (+) rash scalp and right elbow Current Outpatient Prescriptions on File Prior to Visit Medication Sig Dispense Refill ??? predniSONE (DELTASONE) 1 mg Tablet TAKE 4 AND 1/2 TABLETS BY MOUTH DAILY. 150 tablet 2 ??? predniSONE (DELTASONE) 5 mg Tablet TAKE ONE TABLET BY MOUTH EVERY DAY 30 tablet 1 ??? lisinopril (PRINIVIL;ZESTRIL) 10 mg Tablet ??? fluticasone (FLONASE) 50 mcg/actuation Currie, Suspension ??? FLOVENT HFA 220 mcg/actuation HFA Aerosol Inhaler ??? cycloSPORINE (RESTASIS) 0.05 % [place] Place 1 drop into both eyes 2 times daily. ??? predniSONE (DELTASONE) 5 mg Tablet TAKE ONE TABLET BY MOUTH EVERY DAY 30 tablet 2 ??? Cholecalciferol, Vitamin D3, (VITAMIN D-3) 2,000 unit Capsule Take 2,000 Units by mouth daily. ??? polyethylene glycol (MIRALAX) 17 gram [...] Take 325 mg by mouth daily. ??? CALCIUM ORAL Take 1,600 mg by mouth daily. ??? OMEGA-3S/DHA/EPA/FISH OIL (OMEGA 3 ORAL) Take 4,800 mg by mouth 4 times daily. ??? rosuvastatin (CRESTOR) 5 mg tablet Take 5 mg by mouth daily. 5 mg 4 times a week and 10mg 3 times a week ??? diaZEPam (VALIUM) 2 mg tablet Take 1 mg by mouth every 6 hours as needed. ??? digoxin (LANOXIN) 125 mcg tablet Take 62.5 mcg by mouth daily. ??? esomeprazole (NEXIUM) 40 mg capsule Take 40 mg by mouth 2 times daily. ??? acetaminophen (TYLENOL EXTRA STRENGTH) 500 mg tablet Take 1,000 mg by mouth 3 times daily as needed. Half tablet = 1MG ??? LEVALBUTEROL HCL (XOPENEX CONCENTRATE INHL) Inhale 1 Nebules into the lungs every 8 hours as needed. ??? MAGNESIUM CHLORIDE (SLOW-MAG ORAL) Take 99 mg by mouth 2 times daily. ??? verapamil (CALAN) 40 mg tablet 40 mg, PO, Three times daily ??? fluticasone (FLOVENT HFA) 110 mcg/Actuation inhaler 2 Puff(s), Inh, Twice daily ??? Levalbuterol Tartrate (XOPENEX HFA) 45 mcg/Actuation inhaler 2 Puff(s), Inh, Q6H No current facility-administered medications on file prior to visit. Allergies Allergen Reactions ??? Anesthetics - Amide Type Shortness Of Breath ??? Anesthetics - Marlyn Type Shortness Of Breath ??? Citalopram Hydrobromide Shortness Of Breath ??? Codeine Phosphate Palpitations ??? Epinephrine Palpitations ??? Escitalopram Oxalate Shortness Of Breath ??? Fluoxetine Hcl Shortness Of Breath and Palpitations ??? Lidocaine Palpitations ??? Methotrexate Other (See Comments) dyspnea ??? [...] [Unclassified Drug] All Antihistamines. PHYSICAL EXAMINATION: Vitals: 04/16/16 1320 BP: 119/74 Pulse: 86 Temp: 36.8 ??C (98.2 ??F) TempSrc: Oral SpO2: 97% Weight: 84.4 kg (186 lb) Height: 157.5 cm (5' 2) Constitutional: Pleasant female sitting comfortably. HEENT: Normocephalic; (-) scleral injection, oral mucous membranes moist and intact. Neck: Neck supple; (-) lymphadenopathy (-) thyromegaly (-) parotid or submandibular gland enlargement Pulm: CTA; (-) wheezing, rales or rhonchi CV: RRR; (-) murmur or extra sounds; (-) CCE Neuro: Gait forward-bending; even and co-ordinated with use of a cane; speech clearly articulated Musculoskeletal: Muscle mass bilaterally symmetric. Joint exam: Neck: ROM functional, limited in bilateral flexion/rotation. (-) tender. FROM in bilateral upper and lower extremity peripheral joints. Incomplete extension left elbow. Healed incision proximal to elbow joint. No erythema. (+) tender, trace swelling left wrist. MCPs/PIPs: Functional ROM; (+) tender; (-) synovitis. (No) deformities; makes a near complete fist and claw. Hips: Functional ROM, independent seated -> standing/standing to seated (+) pain in low back with transitions. Skin: Warm, dry; (-) telangiectasias; (-) ulcers; (+) thin hyperkeratotic rash (RIGHT elbow); nape of neck(-) nail pitting;(-) bruising ASSESSMENT : Fibromyalgia; joint pain, hand osteoarthritis; psoriasis, osteoporosis; chronic steroiduse. PLAN/RECOMMENDATIONS: ?? Labs pending. ?? Hand imaging. ?? Consider steroid injection left wrist at follow up. ?? Prednisone 2.5 mg daily. ?? Continue acetaminophen 1000 mg po 2-3 times daily. ?? Topical care for rash - right elbow. ?? Vitamin D level -> per PCP modified supplement. ?? Ongoing calcium and vitamin D dietary intake and supplementation. ?? Follow up in 2 weeks, sooner for concerns, questions or increased signs/symptoms. Addendum: Planned review at time of scheduled follow up appointment. Component Latest Ref Rng 04/16/2016 Glucose Lvl 65 - 199 mg/dL 170 BUN 8 - 18 mg/dL 19 (H) Creatinine 0.70 - 1.20 mg/dL 0.74 Sodium 135 - 145 mmol/L 140 Potassium 3.5 - 5.0 mmol/L 4.1 Chloride 98 - 107 mmol/L 102 CO2 22 - 31 mmol/L 25 Anion Gap 5 - 15 mmol/L 13 Calcium 8.5 - 10.5 mg/dL 9.5 Total Protein 6.1 - 8.0 gm/dL 7.1 Albumin 3.2 - 5.2 gm/dL 4.4 AST 0 - 30 unit/L 15 ALT 0 - 30 unit/L 19 Alk Phos 40 - 104 unit/L 82 Total Bilirubin 0.2 - 1.3 mg/dL 0.3 Bili, Direct 0.0 - 0.3 mg/dL 0.1 Estimated GFR >=60 >60 Neutrophils % % 75.5 Neutr Abs (ANC) 1.50 - 6.30 x10(3)/mcL 7.62 (H) Lymphocytes % % 18.2 Lymphocytes Abs 1.0 - 3.6 x10(3)/mcL 1.8 Monocytes % % 5.0 Monocyte Abs 0.2 - 1.0 x10(3)/mcL 0.5 Eosinophils % % 1.0 Eosinophils Abs 0.0 - 0.5 x10(3)/mcL 0.1 Basophils % % 0.2 Basophils Abs 0.0 - 0.2 x10(3)/mcL 0.0 Immature Gran % % 0.10 Amber Gran Abs 0.00 - 0.05 x10(3)/mcL 0.01 WBC 4.0 - 10.0 x10(3)/mcL 10.1 (H) RBC 3.93 - 5.22 x10(6)/mcL 4.32 Hemoglobin 11.2 - 15.7 gm/dL 13.0 Hematocrit 34.0 - 45.0 % 39.1 MCV 79.0 - 94.0 fL 90.5 MCH 26.6 - 32.2 pg 30.1 MCHC 32.0 - 36.5 gm/dL 33.2 Platelets 145 - 370 x10(3)/mcL 233 RDWSD 35.0 - 46.0 fL 41.2 RDWCV 10.9 - 14.4 % 12.4 MPV 9.0 - 12.0 fL 10.9 CRP High Sens mg/L 2.6 EXAMINATION: XR BILATERAL HANDS MINIMUM 3 VIEWS ?? CLINICAL HISTORY: , hand stiffness and pain ?? TECHNIQUE: Frontal, oblique, and lateral bilateral hands, 4 views, as arthritis series. ?? COMPARISON: 12/21/2007. ?? FINDINGS: ?? Left hand: Mild degenerative change of the DRUJ. The carpus is stable in alignment. Transverse subtle irregularities of the mid waist scaphoid could represent degenerative change, difficult to exclude chronic subtle fracture. These findings appear similar to comparison. There is been progression of degenerative change at the first CMC joint, and scapho-trapezium joint. Degenerative type change at the first metacarpal phalangeal joint. The metacarpophalangeal joints are notable for fifth and possibly third subtle erosions which are marginal, mildly progressed in the interval. PIP and DIP joints with scattered joint space loss and osteophytes. No definite marginal erosions. No current evidence of central erosions. ?? Right hand: The carpus appears well aligned. Mild degenerative changes of the DRUJ. Degenerative change of the first carpometacarpal joint. Metacarpophalangeal joints without definite erosions. Distal scattered joint space loss and osteophytes without central or marginal erosions appreciated. ?? IMPRESSION Left hand: No definite acute osseous abnormalities. Mild progression of fifth/third metacarpal phalangeal joint marginal erosions. Equivocal/chronic findings of the mid waist scaphoid as described. Right hand: Stable examination. documented in this encounter Plan of Treatment Upcoming Encounters Date Type Specialty Care Team Description 02/26/2023 Office Visit Rheumatology [facility] [place] [address] (Wo rk) documented as of this encounter Procedures Procedure Name Priority Date/Time Associated Comments Diagnosis HEMOGRAM Routine 04/16/2016 2:07 PM Results f or this EDT procedure are i n the results section. DIFFERENTIAL, Routine 04/16/2016 2:07 PM Results for this AUTOMATED EDT procedure are i n the results section. CBC (WITH DIFF) Routine 04/16/2016 2:07 PM Psoriatic art hritis EDT [facility] current use of systemic steroids Medication monitoring encounter Psoriasis CRP, CARDIAC RISK (HS Routine 04/16/2016 2:07 PM Psoriat ic arthritis Results for this CRP) EDT intermodal customer service current procedure are in use of systemic the results steroids section. Medication monitoring encounter Psoriasis COMPREHENSIVE Routine 04/16/2016 2:07 PM Psoriatic art hritis Results for this METABOLIC PANEL EDT intermodal customer service current procedu re are in (NON-FASTING) use of systemic the results steroids section. Medication monitoring encounter Psoriasis documented in this encounter Results XR Bilateral Hands Minimum 3 Views (04/16/2016 2:20 PM EDT) Anatomical Region Laterality Modality Hand Bilateral Digital Radiography Specimen (Source) Anatomical Location Collection Method / Collectio n Time Received Time / Laterality Volume Impressions 04/16/2016 2:54 PM EDT Left hand: No definite acute osseous abnormalities. Mild progression of fifth/third metacarpal phalangeal joint marginal erosions. Equivocal/chronic findings of the mid waist scaphoid as de scribed. Right hand: Stable examination. Narrative 04/16/2016 2:54 PM EDT EXAMINATION: XR BILATERAL HANDS MINIMUM 3 VIEWS CLINICAL HISTORY: , hand stiffness and p ain TECHNIQUE: Frontal, oblique, and lateral bilateral hands, 4 views, as arthritis series. COMPARISON: 12/21/2007. FINDINGS: Left hand: Mild degenerative change of t he DRUJ. The carpus is stable in alignment. Transverse subtle irregularit ies of the mid waist scaphoid could represent degenerative change, difficult to exclude chronic subtle fracture. These findings appear similar to marcoi son. There is been progression of degenerative change at the first CMC brian nt, and scapho-trapezium joint. Degenerative type change at the first me tacarpal phalangeal joint. The metacarpophalangeal joints are notable f or fifth and possibly third subtle erosions which are marginal, mildly prog ressed in the interval. PIP and DIP joints with scattered joint space loss a nd osteophytes. No definite marginal erosions. No current evidence of central erosions. Right hand: The carpus appears well alig elia. Mild degenerative changes of the DRUJ. Degenerative change of the first c arpometacarpal joint. Metacarpophalangeal joints without defin ite erosions. Distal scattered joint space loss and osteophytes without centr al or marginal erosions appreciated. Procedure Note Aaron Meza MD - 04/16/2016Format ting of this note might be different from the original. EXAMINATION: XR BILATERAL HANDS MINIMUM 3 VIEWS CLINICAL HISTORY: , hand stiffness and p ain TECHNIQUE: Frontal, oblique, and lateral bilateral hands, 4 views, as arthritis series. COMPARISON: 12/21/2007. FINDINGS: Left hand: Mild degenerative change of t he DRUJ. The carpus is stable in alignment. Transverse subtle irregularit ies of the mid waist scaphoid could represent degenerative change, difficult to exclude chronic subtle fracture. These findings appear similar to marcoi son. There is been progression of degenerative change at the first CMC brian nt, and scapho-trapezium joint. Degenerative type change at the first me tacarpal phalangeal joint. The metacarpophalangeal joints are notable f or fifth and possibly third subtle erosions which are marginal, mildly prog ressed in the interval. PIP and DIP joints with scattered joint space loss a nd osteophytes. No definite marginal erosions. No current evidence of central erosions. Right hand: The carpus appears well alig elia. Mild degenerative changes of the DRUJ. Degenerative change of the first c arpometacarpal joint. Metacarpophalangeal joints without defin ite erosions. Distal scattered joint space loss and osteophytes without centr al or marginal erosions appreciated. IMPRESSION Left hand: No definite acute osseous abn ormalities. Mild progression of fifth/third metacarpal phalangeal joint marginal erosions. Equivocal/chronic findings of the mid waist scaphoid as de scribed. Right hand: Stable examination. Maria A Suarez DO Kelsey DX ORDERABLES (ABNORMAL) Differential, Automated (04/16/2016 2:07 PM EDT) [facility] Method Time Signature Neutrophils % 75.5 % [facility] Neutr Abs (ANC) 7.62 (H) 1.50 - [facility] 6.30 [facility] x10(3)/[facility] LABORATORY Lymphocytes % 18.2 % [facility] Lymphocytes Abs 1.8 1.0 - 3.6 [facility] x10(3)/[facility] LABORATORY Monocytes % 5.0 % [facility] Monocyte Abs 0.5 0.2 - 1.0 [facility] x10(3)/[facility] LABORATORY Eosinophils % 1.0 % [facility] Eosinophils Abs 0.1 0.0 - 0.5 [facility] x10(3)/[facility] LABORATORY Basophils % 0.2 % [facility] Basophils Abs 0.0 0.0 - 0.2 [facility] x10(3)/[facility] LABORATORY Immature Gran % 0.10 % [facility] Comment: Immature granulocytes(IG's)percentage an d absolute count will include metamyelocytes, myelocytes, and promyelo cytes. Blood smears from CBCs yielding IG's will be scanned manually for concor dance. If this scan disagrees with the automated IG or if promyelocytes are not ed, a manual differential will be performed. Amber Gran Abs 0.01 0.00 - 0.05 x10(3)/[facility] Specimen Anatomical Collection Method Collection Time Receive d Time (Source) Location / / Volume Laterality Blood specimen 04/16/2016 2:07 PM 016 2:13 (specimen) EDT PM EDT Resulting Agency Comment Spec In Lab Maria A Suarez DO HEMATOLOGY ORDERABLES Performing Organization Address City/State/ZIP Code Phon e Number [address] (ABNORMAL) Hemogram (04/16/2016 2:07 PM EDT) P athologist Signature WBC 10.1 (H) 4.0 - 10.0 [facility] x10(3)/[facility] LABORATORY RBC 4.32 3.93 - [place] [facility] 5.22 [facility] x10(6)/[facility] LABORATORY Hemoglobin 13.0 11.2 - [facility] g[facility]/dL [facility] Hematocrit 39.1 34.0 - [place] [facility] 45.0 % [facility] MCV 90.5 79.0 - [facility] 94[facility]0 [facility] LAB[facility]ATORY MCH 30.1 26.6 - [facility] 32.2 pg [facility] MCHC 33.2 32.0 - [facility] 36.5 gm/dL [facility] Platelets 233 145 - 370 [facility] x10(3)/[facility] LABORATORY RDWSD 41.2 35.0 - [facility] 46.0 [facility] LABORATORY RDWCV 12.4 10.9 - [facility] XANDER 14.4 % [facility] MPV 10.9 9.0 - 12.0 [facility] LAB[facility]ORY Specimen Anatomical Collection Method Collection Time Receive d Time (Source) Location / / Volume Laterality Blood specimen 04/16/2016 2:07 PM 016 2:13 (specimen) EDT PM EDT Resulting Agency Comment Spec In Lab Maria A Suarez DO HEMATOLOGY ORDERABLES Performing Organization Address City/State/ZIP [place] [address] High Sensitivity CRP (04/16/2016 2:07 PM EDT) athologist Signature CRP High Sens 2.6 mg/L [facility] Comment: Interpretations: 1) For accurate cardiac risk assessment, the average of 2 values >2 weeks apart should be obtained (ref 1&2). A value >1 0 mg/L indicates an inflammatory condition, concentrations >10 mg/L shoul d not be used for cardiac risk assessment. ?<1.0 mg/L: low risk ?1.0 - 3.0 mg/L: moderate risk ?>3.0 mg/L: high risk groups for fu ture cardiovascular events 2) The general reference range of appare ntly healthy individuals using this test is <5.0 mg/L (derived from the test package insert) References: 1. Jen TAYLOR et. al. ??AHA/CDC Scientif ic Statement: Markers of Inflammation and Cardiovascular Disease. ??Circulatio n 2003; 107:499-511 2. Ridker PM. ??Clinical applications of C-reactive protein for cardiovascular disease detection and prevention. ??Circ ulation 2003; 107:363-369 Specimen Anatomical Collection Method Collection Time Receive d Time (Source) Location / / Volume Laterality Blood specimen 04/16/2016 2:07 PM 016 2:13 (specimen) EDT PM EDT Resulting Agency Comment Spec In Lab Maria A Suarez DO CHEMISTRY ORDERABLES Performing Organization Address City/State/ZIP Code Phon e Number [place] [phone] (ABNORMAL) Comprehensive metabolic panel (non-fasting) (04/16/2016 2:07 PM EDT) athologist Signature Glucose Lvl 170 65 - 199 [facility] mg/dL [facility] Comment: Diabetes: >=200 mg/dL plus symp toms BUN 19 (H) 8 - 18 mg/dL [facility] Creatinine 0.74 0.70 - 1.20 mg/dL [facility] Comment: Please note that the pediatric reference intervals supplied above were not validated at [facility]. Results from pediatri c patients should be interpreted in conjunction to the patient's age, height and muscle mass. Sodium 140 135 - 145 mmol/L [facility] Potassium 4.1 3.5 - 5.0 mmol/L [facility] Comment: Please note: ??Patients with WBC >100,00 0 may have falsely elevated Potassium levels. ??For accurate Potassium quantif ication in these patients send serum separator tube (gold top) for subsequent determinations. ??Contact the Clinical Chemistry Laboratory if there are any qu estions. Chloride 102 98 - 107 mmol/L [facility] CO2 25 22 - 31 mmol/L [facility] Anion Gap 13 5 - 15 mmol/L [facility] Calcium 9.5 8.5 - 10.5 mg/dL [facility] Total Protein 7.1 6.1 - 8.0 gm/dL [facility] Albumin 4.4 3.2 - 5.2 gm/dL [facility] AST 15 0 - 30 unit/L [facility] ALT 19 0 - 30 unit/L [facility] Alk Phos 82 40 - 104 unit/L [facility] Total Bilirubin 0.3 0.2 - 1.3 mg/dL [facility] Bili, Direct 0.1 0.0 - 0.3 mg/dL [facility] Estimated GFR >60 >=60 [facility] Comment: This estimated GFR (eGFR) value was calc ulated using the MDRD equation which has been validated on patients between t he ages of 18 and 70. The MDRD should not be used to assess kidney function in patients < 18 years of age or in patients with extremes of body mass, or in patients with acute kidney failure. This value should be multiplied by 1.2 f or patients. For further information please copy and past e the following links into your internet browser. [email or web address] Specimen Anatomical Collection Method Collection Time Receive d Time (Source) Location / / Volume Laterality Blood specimen 04/16/2016 2:07 PM 016 2:13 (specimen) EDT PM EDT Resulting Agency Comment Spec In Lab Maria A Suarez DO CHEMISTRY ORDERABLES Performing Organization Address City/State/ZIP Code Phon e Number [place] [phone] documented in this encounter Visit Diagnoses Diagnosis Psoriatic arthritis Psoriatic arthropathy intermodal customer service current use of systemic steroi ds Encounter for long-term (current) use of steroids Medication monitoring encounter Encounter for therapeutic drug monitorin g Psoriasis Other psoriasis Swelling of joint, wrist, left Effusion of forearm joint Psoriatic arthritis Psoriatic arthropathy [facility] current use of systemic steroi ds Encounter for long-term (current) use of steroids Medication monitoring encounter Encounter for therapeutic drug monitorin g Psoriasis Other psoriasis Swelling of wrist joint, right documented in this encounter Care Teams Pot Firer Relationship Specialty Start Date End Date Jennifer Ledesma APRN PCP - General 09/10/10 07/01/17 documented as of this encounter
--- OUTSIDE RECORDS SUMMARY | 2022-07-08 09:34 | XMS_ITS | Encounter Summary ---
:1945 Author Organization [facility] [place] [address] Care Team Providers Name Role Phone DickensonJennie mckeonhumphrey Cole APRN Primary Care Provider Reason for Visit Reason Onset Date Comments Questions 11/14/2016 regarding humira vs enbrel Encounter Details Date Type Department Care Team Description 11/14/2016 Telephone Rheumatology at [facility] Unique Wesley Questions (regarding [facility] humira vs enbrel) [place] [address] Social History Tobacco Use Types Packs/Day Years Used Date Former Smoker 2 Quit: 07/19/19 79 Smokeless Tobacco: Never Used Alcohol Use Standard Drinks/Week Comments No 0 (1 standard drink = 0.6 oz pure alcoho l) Sex Assigned at Date Recorded Not on file documented as of this encounter Miscellaneous Notes Telephone Encounter - Unique Wesley RN - 11/14/2016 2:09 PM EST Caller: Francisca: Verified name Pt reports was under the impression she was going to be put on humira instead of enbrel. Pt reports visually impaired and didn't read the paperwork Last appt 07/2016, but waiting until dental infection resolved before starting the enbrel, which hasresolved. Pt believes the co-pay $100 now and unable to afford the med. Pharmacist unsure at this time what exactly the cost would be. Pt requested copy of script be refaxed to [facility]. Done Received confirmation documented in this encounter Plan of Treatment Upcoming Encounters Date Type Specialty Care Team Description 02/26/2023 Office Visit Rheumatology Toño Rodriguez PA [facility] ER RHEUMATOLOGY [place], [place] [address] (Wo rk) documented as of this encounter Visit Diagnoses Not on filedocumented in this encounter Care Teams Water/Wastewater Project Manager Relationship Specialty Start Date End Date Jennifer Silva APRN PCP - General 09/10/10 07/01/17 documented as of this encounter
--- OUTSIDE RECORDS SUMMARY | 2022-07-08 09:34 | XMS_ITS | Encounter Summary ---
:1945 Author Organization [facility] [place] [address] Care Team Providers Name Role Phone Terri Bowser MD Primary Care Provider Reason for Visit Reason Comments Medication Refill Encounter Details Date Type Department Care Team Description 04/10/2016 Refill Rheumatology at [facility] Alisha Heredia APRN [facility] [place] [address] RHEUMATOLOGY DEPT. [phone] [place], [place] [address] (Wo rk) Social History Tobacco [...] Rheumatology Toño Rodriguez PA [facility] [address] [place], [place] [address] (Wo rk) documented as of this encounter Goals Goal Patient Goal Associated Recent Patient-Stated? Author Type Problems Progress DH Home Medication Patient No Dario'Errol moralez, Compliance and Facing Rachael Resendiz, Understanding Action Plan [facility] Note: Formatting of this note might be d ifferent from the original. Patient's goal is to decrease pain by 50 % over the next 6 months (current pain 7 out of 10, would like to get down to 3) documented as of this encounter Visit Diagnoses Not on filedocumented in this encounter Care Teams Software Deployment Engineer Relationship Specialty Start Date End Date Terri Bowser MD PCP - General Family Medicine 07/02/17 [address] [place] [address] documented as of this encounter
--- OUTSIDE RECORDS SUMMARY | 2022-07-08 09:34 | XMS_ITS | Encounter Summary ---
:1945 Author Organization [facility] [place] [address] Care Team Providers Name Role Phone Ricardo Jennifer Cole APRN Primary Care Provider Reason for Visit Reason Onset Date Comments Other 09/10/2015 question Encounter Details Date Type Department Care Team Description 09/10/2015 Telephone Rheumatology at [facility] Brittany Spivey, Other (question) [facility] [place] [address] Social History Tobacco Use Types Packs/Day Years Used Date Former Smoker 2 Quit: 07/19/19 77 Smokeless Tobacco: Never Used Alcohol Use Standard Drinks/Week Comments No 0 (1 standard drink = 0.6 oz pure alcoho l) Sex Assigned at Date Recorded Not on file documented as of this encounter Miscellaneous Notes Telephone Encounter - Brittany Spivey RN - 09/11/2015 9:07 AM EST Called Francisca and asked her to contact pcp and ortho doctor she saw to send over visit notes for Salma to review. Told Francisca that if it gets worse she should go to local ER for evaluation. She is very upset with ortho doctor. Francisca says he told her, We don't drain things anymore because it causes infection and then requires IV antibiotics. Telephone Encounter - Brittany Spivey RN - 09/10/2015 4:16 PM EST Francisca called and left message that she has been dealing with a fluid filled baseball on my left arm. for the past 1 1/2 months. She says she saw her pcp,initially and she drained it but did not send fluid for culture. Her pcp put her on prednisone. The baseball size sac of fluid returned. She was referred to Ortho who told her to use 24 hour compression and ice. Francisca says it is very painful and she does not feel anyone is helping her. She would like to know if Salma has any advice. documented in this encounter Plan of Treatment Upcoming Encounters Date Type Specialty Care Team Description 02/26/2023 Office Visit Rheumatology Toño Rodriguez PA [facility] RHEUMATOLOGY [place], [place] [address] (Wo rk) documented as of this encounter Visit Diagnoses Not on filedocumented in this encounter Care Teams Production Internship Relationship Specialty Start Date End Date Jennifer Silva APRN PCP - General 09/10/10 07/01/17 documented as of this encounter
--- OUTSIDE RECORDS SUMMARY | 2022-07-08 09:34 | XMS_ITS | Encounter Summary ---
:1945 Author Organization [facility] [place] [address] Care Team Providers Name Role Phone BethelSavannah APRN Primary Care Provider Encounter Details Date Type Department Care Team Description 08/12/2016 Office Visit Rheumatology at 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 [place], [place] [address] Social History Tobacco Use Types Packs/Day Years Used Date Former Smoker 2 Quit: 07/19/19 77 Smokeless Tobacco: Never Used Alcohol Use Standard Drinks/Week Comments No 0 (1 standard drink = 0.6 oz pure alcoho l) Sex Assigned at Date Recorded Not on file documented as of this encounter Last Filed Vital Signs Vital Sign Reading Time Taken Comments Blood Pressure 148/73 08/12/2016 12:28 PM EDT Pulse 84 08/12/2016 12:28 PM EDT Temperature 36.7 ??C (98 ??F) 08/12/2016 12:28 PM EDT Respiratory Rate - - Oxygen Saturation 100% 08/12/2016 12:28 PM EDT Inhaled Oxygen Concentration - - Weight 84.8 kg (187 lb) 08/12/2016 12:28 PM EDT Height 157.5 cm (5' 2) 08/12/2016 12:28 PM EDT Body Mass Index 34.2 08/12/2016 12:28 PM EDT documented in this encounter Progress Notes Alisha Heredia, CONSTRUCTION FLAGGER - 08/12/2016 12:30 PM EDT Francisca Kong is a 71 y.o. [...] G89.4 ??? Food intolerance K90.49 INTERVAL HISTORY: Last seen on 04/29/2016. Received left wrist injection for pain and swelling with benefit. Office contact on 07/15/2016. Diffuse joint swelling, sustained stiffness and joint pain. Seen in PCP office and started on prednisone burst/taper 40 mg, tapering by 10 mg once weekly. Reports marked imrpovement in symptoms. States had been off prednisone x 2-3 months. ready to try a biologic. Labs completed at OSH. Reports plan to have dental surgery in coming weeks, postponed awaiting decision-making related to psoriatic arthritis management. Also wants to wait for mammogram before starting new medication. Reports skin feels itchy, without rash. Reports allergy to all antihistamines. Causes rapid heart rate. Ongoing calcium through diet, vitamin D supplementation per SAVANNAH LEDESMA, JAIRO. Periodic eye exam -> next scheduled on 06/30/2016. Continues to feel fibromyalgia is contributing to generalized achiness. No fever, chills, recent or recurrent illness or infection. Sees [facility] routinely. No other changes in medical, surgical, or social history. Is up to date on routine health maintenance and screening exams. ROS: GEN: (-) fever; (-) night sweats; (-) chills; (-) weight gain; (+) fatigue HEENT: (-) dry eyes; (-) eye [...] (-) Raynauds; (-) ulcers; (+) rash scalp Current Outpatient Prescriptions on File Prior to Visit Medication Sig Dispense Refill ??? calcium carbonate 648 mg calcium Tablet Take 650 mg by mouth 3 times daily (with meals). ??? hydrochlorothiazide (HYDRODIURIL) 12.5 mg Tablet daily. ??? predniSONE (DELTASONE) 1 mg Tablet TAKE 4 AND 1/2 TABLETS BY MOUTH DAILY. (Patient taking differently: Takes 2.5 mg daily) 150 tablet 2 ??? predniSONE (DELTASONE) 5 mg Tablet TAKE ONE TABLET BY MOUTH EVERY DAY (Patient not taking: Reported on 04/16/2016) 30 tablet 1 ??? lisinopril (PRINIVIL;ZESTRIL) 10 mg Tablet ??? fluticasone (FLONASE) 50 mcg/actuation [place], Suspension ??? FLOVENT HFA 220 mcg/actuation HFA Aerosol Inhaler ??? cycloSPORINE (RESTASIS) 0.05 % Dropperette Place 1 drop into both eyes 2 times daily. ??? Cholecalciferol, Vitamin D3, (VITAMIN D-3) 2,000 [...] 40 mg, PO, Three times daily ??? Levalbuterol Tartrate (XOPENEX HFA) 45 [...] [Unclassified Drug] All Antihistamines. PHYSICAL EXAMINATION: Vitals: 08/12/16 1228 BP: 148/73 Pulse: 84 Temp: 36.7 ??C (98 ??F) TempSrc: Oral SpO2: 100% Weight: 84.8 kg (187 lb) Height: 157.5 cm (5' 2) Constitutional: [...] upper and lower extremity peripheral joints. (-) synovitis, erythema or warmth. Skin: Warm, dry; (-) telangiectasias; (-) ulcers; (-) nail pitting;(-) bruising ASSESSMENT : Fibromyalgia; psoriatic arthritis -> joint swelling responsive to steroid; chronic steroid use. PLAN/RECOMMENDATIONS: ?? Labs reviewed. Q GOLD, hepatitis B/C screening <NEG>. CRP 1.4, CMP/CBC within acceptable range. ?? Plan -> Enbrel 50 mg sc weekly, nursing instruction in administration, storage and HOLD. ?? Will await completion of oral surgery, mammogram before initiation of anti- TNF therapy. ?? Will schedule ADM at . ?? Continue prednisone 10 mg daily, tapering to 7.5 mg after initiation of enbrel.. ?? ORTHO (OSH) -> hip stiffness and pain. ?? Vitamin D level -> per PCP modified supplement. ?? Ongoing calcium and vitamin D dietary intake and supplementation. ?? Follow up in 8 weeks, sooner for concerns, questions or increased signs/symptoms. 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
--- OUTSIDE RECORDS SUMMARY | 2022-07-08 09:34 | XMS_ITS | Encounter Summary ---
:1945 Author Organization [facility] [place] [address] Care Team Providers Name Role Phone Jennifer Silva APRN Primary Care Provider Reason for Visit Reason Comments Medication Refill Encounter Details Date Type Department Care Team Description 04/09/2016 Refill Rheumatology at [facility] Alisha Heredia APRN [facility] [place] [address] RHEUMATOLOGY DEPT. [phone] [place], [place] [address] (Wo katelyn) Social History Tobacco [...] 02/26/2023 Office Visit Rheumatology Toño Rodriguez PA [facility] [address] [place], [place] [address] (Wo rk) documented as of this encounter Visit Diagnoses Not on filedocumented in this encounter Care Teams Build And Release Manager Relationship Specialty Start Date End Date Jennifer Silva APRN PCP - General 09/10/10 07/01/17 documented as of this encounter
--- OUTSIDE RECORDS SUMMARY | 2022-07-08 09:34 | XMS_ITS | Encounter Summary ---
:1945 Author Organization [facility] [place] [address] Care Team Providers Name Role Phone Jennifer Silva APRN Primary Care Provider Encounter Details Date Type Department Care Team Description 12/26/2015 Orders Only Rheumatology at [facility] Alisha Heredia APRN [facility] [place] [address] RHEUMATOLOGY DEPT. [phone] [place], [place] [address] (Wo rk) Social History Tobacco [...] Rheumatology Toño Rodriguez PA [facility] [address] [place], [place] [address] (Wo rk) documented as of this encounter Visit Diagnoses Not on filedocumented in this encounter Care Teams Summer Analyst Relationship Specialty Start Date End Date Jennifer Silva APRN PCP - General 09/10/10 07/01/17 documented as of this encounter
--- OUTSIDE RECORDS SUMMARY | 2022-07-08 09:34 | XMS_ITS | Encounter Summary ---
:1945 Author Organization [facility] [address] Care Team Providers Name Role Phone Jennifer Silva APRN Primary Care Provider Reason for Visit Reason Comments Macular Degeneration Encounter Details Date Type Department Care Team Description 08/12/2016 Office Visit Ophthalmology at [facility] Romeo Jesus, AMD (age related [facility] MD macular degeneration) [place] [address] CENTER [phone] OPHTHALMOLOGY [place], [place] [address] Social History Tobacco Use Types Packs/Day Years Used Date Former Smoker 2 Quit: 07/19/19 79 Smokeless Tobacco: Never Used Alcohol Use Standard Drinks/Week Comments No 0 (1 standard drink = 0.6 oz pure alcoho l) Sex Assigned at Date Recorded Not on file documented as of this encounter Progress Notes Romeo Jesus MD - 08/12/2016 2:00 PM EDT ASSESSMENT: 1. AMD (age related macular degeneration) OD end stage disciform scar. OS exudative in past, but not recently. 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 Stable vision OU, OCT unchanged from 6 months ago PLAN: Observe Follow up 6 months with DFE/OCT Due to see Dr. Rico next month, she will mention how her eye feels on the newly prescribed restasis drops The Ophthalmology scribe for this encounter is [...] Toño Rodriguez PA [facility] [address] [place], [place] [address] (Wo rk) documented as of this encounter Visit Diagnoses Diagnosis AMD (age related macular degeneration) Macular degeneration (senile) of retina, unspecified documented in this encounter Care Teams Script Coordinator Relationship Specialty Start Date End Date Jennifer Silva APRN PCP - General 09/10/10 07/01/17 documented as of this encounter
--- OUTSIDE RECORDS SUMMARY | 2022-07-08 09:34 | XMS_ITS | Encounter Summary ---
:1945 Author Organization [facility] Address [facility] [place] [address] Care Team Providers Name Role Phone PrestonJennie mckeonhumphrey Cole APRN Primary Care Provider Encounter Details Date Type Department Care Team Description 04/16/2016 Hospital Encounter XRay at [facility] Daniela, Psoriatic arthritis; [address] Maria A Bertrand, skilled nursing current use of systemic steroi ds; [place], [place] [facility] Medication kailyn gil encounter; [address] CENTER Psoriasis; [phone] RHEUMATOLOGY Swelling of wri st joint, [place] [address] Social History Tobacco Use Types Packs/Day Years Used Date Former Smoker 2 Quit: 07/19/19 79 Smokeless Tobacco: Never Used Alcohol Use Standard Drinks/Week Comments No 0 (1 standard drink = 0.6 oz pure alcoho l) Sex Assigned at Date Recorded Not on file documented as of this encounter Medications at Time of Discharge Medication Sig Dispensed Refills Start Date End Date calcium carbonate 648 mg Take 650 mg by mouth 0 calcium Tablet 3 times daily (with meals). fluticasone (FLONASE) 50 daily. 0 12/11/2015 mcg/actuation [place], Suspension polyethylene glycol Take 17 g by [...] 0 10/04 (XOPENEX HFA) 45 mcg/Actuation inhaler hydrochlorothiazide as needed. 0 04/04/201609/13 (HYDRODIURIL) 12.5 mg Tablet predniSONE (DELTASONE) 1 TAKE 4 AND 1/2 150 tablet 2 016 02/10/2017 mg Tablet TABLETS BY MOUTH DAILY. predniSONE (DELTASONE) 5 TAKE ONE TABLET BY 30 tablet 1 08/201602/10/2017 mg Tablet MOUTH EVERY DAY lisinopril Take 5 mg by mouth 0 10/31/20152021 (PRINIVIL;ZESTRIL) 10 mg daily. Tablet FLOVENT HFA 220 2 times daily. 0 12/11/201509/13 mcg/actuation HFA Aerosol Inhaler cycloSPORINE (RESTASIS) Place 1 drop into 0 03/15/2019 0.05 % Dropperette both eyes 2 times daily. Cholecalciferol, Vitamin Take 2,000 Units by 0 08/12/2016 D3, (VITAMIN D-3) 2,000 mouth daily. unit Capsule aspirin 325 mg tablet Take 81 mg by mouth 0 05/19/2022 daily. diaZEPam (VALIUM) 2 mg Take 1 mg by mouth 0 03/15/2019 tablet every 6 hours as needed. Reported on 03/11/2017 esomeprazole (NEXIUM) 40 Take 40 mg by mouth 0 09/13/2019 mg capsule 2 times daily. LEVALBUTEROL HCL (XOPENEX Inhale 1 Nebules 0 05/201107/02/2017 CONCENTRATE INHL) into the lungs every 8 hours as needed. MAGNESIUM CHLORIDE Take by mouth daily 0 01/30/20 11 03/15/2019 (SLOW-MAG ORAL) as needed. 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 Medication monitoring encou nter Psoriasis Swelling of wrist joint, right documented in this encounter Results XR Bilateral [...] scribed. Right hand: Stable examination. 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
--- OUTSIDE RECORDS SUMMARY | 2022-07-08 09:34 | XMS_ITS | Encounter Summary ---
:1945 Author Organization [facility] [place] [address] Care Team Providers Name Role Phone Terri Bowser MD Primary Care Provider Reason for Visit Reason Comments Medication Refill Encounter Details Date Type Department Care Team Description 09/27/2015 Refill Rheumatology at [facility] Alisha Heredia APRN [facility] [place] [address] RHEUMATOLOGY DEPT. [phone] [place], [place] [address] (Wo rk) Social History Tobacco [...] PA [facility] [address] [place], [place] [address] (Wo rk) documented as of [...] on filedocumented in this encounter Care Teams Snaker Driving Horses Relationship Specialty Start Date End Date Terri Bowser MD PCP - General Family Medicine 07/02/17 [address] [place] [address] documented as of this encounter
--- OUTSIDE RECORDS SUMMARY | 2022-07-08 09:34 | XMS_ITS | Encounter Summary ---
:1945 Author Organization [facility] [place] [address] Care Team Providers Name Role Phone FranklinJennifer APRN Primary Care Provider Reason for Visit Reason Onset Date Comments Prior Authorization 09/02/2016 enbre- Encounter Details Date Type Department Care Team Description 09/02/2016 Telephone Rheumatology at [facility] Antoine Redmond Prior Authorization [facility] [place] [address] Social History Tobacco Use Types Packs/Day Years Used Date Former Smoker 2 Quit: 07/19/19 79 Smokeless Tobacco: Never Used Alcohol Use Standard Drinks/Week Comments No 0 (1 standard drink = 0.6 oz pure alcoho l) Sex Assigned at Date Recorded Not on file documented as of this encounter Miscellaneous Notes Telephone Encounter - Antoine Redmond - 09/02/2016 5:17 PM EST PA initiated via CM documented in this encounter Plan of Treatment Upcoming Encounters Date Type Specialty Care Team Description 02/26/2023 Office Visit Rheumatology Toño Rodriguez PA [facility] [address] TAMMY [place], [place] [address] (Wo rk) documented as of this encounter Visit Diagnoses Not on filedocumented in this encounter Care Teams Boats Renter Relationship Specialty Start Date End Date Jennifer Silva APRN PCP - General 09/10/10 07/01/17 documented as of this encounter
--- OUTSIDE RECORDS SUMMARY | 2022-07-08 09:34 | XMS_ITS | Encounter Summary ---
:1945 [place] [address] Care Team Providers Name Role Phone Jennifer Silva APRN Primary Care Provider Reason for Visit Reason Onset Date Comments Diabetes 09/19/2015 Encounter Details Date Type Department Care Team Description 09/19/2015 Telephone Endocrinology at [facility] Edna Foley APRN [facility] [place] [address] ENDOCRINOLOGY DEPT. [phone] [place], [place] [address] (Wo rk) Social History Tobacco Use Types Packs/Day Years Used Date Former Smoker 2 Quit: 07/19/19 77 Smokeless Tobacco: Never Used Alcohol Use Standard Drinks/Week Comments No 0 (1 standard drink = 0.6 oz pure alcoho l) Sex Assigned at Date Recorded Not on file documented as of this encounter Miscellaneous Notes Telephone Encounter - Edna Mortensen APRN - 09/19/2015 5:33 PM EST Pt had called to discuss if she had to schedule follow-up appointment. ORNAMENTER HAND called pt to advise to continue to have follow-up with PCP and if PCP thinks pt needs appointment in endocrinology, then call to arrange. Pt agrees. documented in this encounter Plan of Treatment Upcoming Encounters Date Type Specialty Care Team Description 02/26/2023 Office Visit Rheumatology Toño Rodriguez PA [facility] RHEUMATOLOGY [place], [place] [address] (Wo rk) documented as of this encounter Visit Diagnoses Not on filedocumented in this encounter Care Teams Carton Maker Relationship Specialty Start Date End Date Jennifer Silva APRN PCP - General 09/10/10 07/01/17 documented as of this encounter
--- OUTSIDE RECORDS SUMMARY | 2022-07-08 09:34 | XMS_ITS | Encounter Summary ---
:1945 Author Organization [facility] [place] [address] Care Team Providers Name Role Phone Jennifer Silva APRN Primary Care Provider Encounter Details Date Type Department Care Team Description 02/10/2017 Clinical [place] [address] Social History Tobacco Use Types Packs/Day [...] 02/26/2023 Office Visit Rheumatology Toño Rodriguez PA [facility] DR [place], [place] [address] (Wo rk) documented as of this encounter Visit Diagnoses Not on filedocumented in this encounter Care Teams Forestry Worker Relationship Specialty Start Date End Date Jennifer Silva APRN PCP - General 09/10/10 07/01/17 documented as of this encounter
--- OUTSIDE RECORDS SUMMARY | 2022-07-08 09:34 | XMS_ITS | Encounter Summary ---
:1945 Author Organization [place] [address] Care Team Providers Name Role Phone Jennifer Silva APRN Primary Care Provider Encounter Details Date Type Department Care Team Description 02/10/2017 [place] [facility] [place]isha Heredia, Psoriatic arthritis; [facility] JAIRO High risk medication use; [facility] intermission coordinator current use of sys temic steroids; [place] [address] Medication monitoring encounter [phone] RHEUMATOLOGY DEPT. [place], [place] [address] Social History Tobacco Use Types Packs/Day Years Used Date Former Smoker 2 Quit: 07/19/19 77 Smokeless Tobacco: Never Used Alcohol Use Standard Drinks/Week Comments No 0 (1 standard drink = 0.6 oz pure alcoho l) Sex Assigned at Date Recorded Not on file documented as of this encounter Last Filed Vital Signs Vital Sign Reading Time Taken Comments Blood Pressure 147/74 02/10/2017 10:42 AM EDT Pulse 99 02/10/2017 10:42 AM EDT Temperature - - Respiratory Rate 16 02/10/2017 10:42 AM EDT Oxygen Saturation 98% 02/10/2017 10:42 AM EDT Inhaled Oxygen Concentration - - Weight 88.5 kg (195 lb) 02/10/2017 10:42 AM EDT Height 157.5 cm (5' 2) 02/10/2017 10:42 AM EDT Body Mass Index 35.67 02/10/2017 10:42 AM EDT documented in this encounter Progress Notes Alisha Heredia, 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 Food intolerance K90.49 INTERVAL HISTORY: Here for first etanercept injection. All screening labs completed. Reports persistent bilateral hand, knee and ankle stiffness, low back stiffnessdespite ongoing prednisone. Had tapered off steroid (5 mg increments) after last OV in 07/2016. Flare and resumed prednisone through PCP office in December (40 mg), tapering in 10 mg increments. Current dose = 10 mg po QAM. Blood sugar elevated with ongoing prednisone. Previously noted: Last seen on 04/29/2016. Received left wrist injection for pain and swelling with benefit. Office contact on 07/15/2016. Diffuse joint swelling, sustained stiffness and joint pain. Seen in PCP office and started on prednisone burst/taper 40 mg, tapering by 10 mg once weekly. Reports marked improvement in symptoms. States had been off prednisone x 2-3 months. ready to try a biologic. Ongoing calcium through diet, vitamin D supplementation per Jennifer Silva APRN. Periodic eye exam -> next scheduled on 06/30/2016. Continues to feel fibromyalgia is contributing to generalized achiness. No fever, chills, recent or recurrent illness or infection. Sees [facility] routinely. No other changes in medical, surgical, or social history. Is up to date on routine health maintenance and screening exams. ROS: Ongoing periodic [facility] visit. No eye pain, eye redness, oral ulcers, painful or difficult swallowing, heartburn, diarrhea. (+) psoriasis rash Current Outpatient Prescriptions on File Prior to Visit Medication Sig Dispense Refill ??? ONETOUCH ULTRA TEST Strip TEST FIVE TIMES A DAY 3 ??? predniSONE (DELTASONE) 10 mg Tablet daily. 0 ??? cholecalciferol, Vitamin D3, (VITAMIN D-3) 5,000 unit Tablet Take by mouth. ??? LEVEMIR FLEXTOUCH Insulin Pen 4 Units 2 times daily. 12 ??? BD INSULIN PEN NEEDLE UF MINI 31 gauge x 3/16 Needle USE ONCE DAILY WITH LEVEMIR 4 ??? etanercept (ENBREL SURECLICK) Pen Injector Inject 50 mg subcutaneously once a week. 4 Syringe 3 ??? calcium carbonate 648 mg calcium Tablet [...] Tablet ??? fluticasone (FLONASE) 50 mcg/actuation [place], Suspension ??? FLOVENT HFA 220 mcg/actuation HFA [...] [Unclassified Drug] All Antihistamines. PHYSICAL EXAMINATION: Vitals: 02/10/17 1042 BP: 147/74 Pulse: 99 Resp: 16 SpO2: 98% Weight: 88.5 kg (195 lb) Height: 157.5 cm (5' 2) Constitutional: Pleasant female sitting comfortably. HEENT: Normocephalic; (-) scleral injection, oral mucous membranes moist and intact. (-) lymphadenopathy (-) thyromegaly (-) parotid or submandibular gland enlargement Pulm: CTA; (-) wheezing, rales or rhonchi CV: RRR; (-) murmur or extra sounds; (-) CCE Neuro: Gait forward-bending; even and co-ordinated with use of a cane; speech clearly articulated. CN Ii-XII grossly intact. Musculoskeletal: Muscle mass bilaterally symmetric. Joint exam: Neck: ROM functional, limited in bilateral flexion/rotation. (-) tender. (+) tender at Lspine and paraspinal muscles. FROM in bilateral upper and lower extremity peripheral joints. (+) tender, trace swelling R>L wrist. (- )erythema or warmth. Skin: Warm, dry; (-) telangiectasias; (-) ulcers; (-) nail pitting;(-) bruising ASSESSMENT : Fibromyalgia; psoriatic arthritis -> joint swelling responsive to steroid; chronic steroid use, diabetes. PLAN/RECOMMENDATIONS: ?? Labs reviewed. Q GOLD, hepatitis B/C screening <NEG>. CRP 1.4, CMP/CBC within acceptable range. ?? Enbrel 50 mg sc weekly, nursing instruction in administration, storage and HOLD, indications and time ot effect reviewed by this proivderw/pt.. ?? Self-ADM in office - see nursing note. ?? Will await completion of oral surgery, mammogram before initiation of anti- TNF therapy. ?? Prednisone 10 mg daily, tapering by 1 mg every 2 weeks, office contact if recurrent swelling.. ?? ORTHO (OSH) -> hip stiffness and pain. ?? Vitamin D level -> per PCP modified supplement. ?? Ongoing calcium and vitamin D dietary intake and supplementation. ?? Follow up in 8 weeks, sooner for concerns, questions or increased signs/symptoms. Yola Wilcox LPN - 02/10/2017 11:00 AM EDT Francisca in for visit today with TANJA Alfaro. Pt teaching done for the use of Enbrel. She demonstrated that she could give herself an injection. She stayed here in the office for 1/2 hour as she statesthat she has a lot of medication allergies. She was able to leave the office with out any allergy incident. documented in this encounter Plan of Treatment Upcoming Encounters Date Type Specialty Care Team Description 02/26/2023 Office Visit Rheumatology Toño Rodriguez PA [facility] [address] [place], [place] [address] (Wo rk) documented as of this encounter Visit Diagnoses Diagnosis Psoriatic arthritis Psoriatic arthropathy High risk medication use Encounter for long-term (current) use of other medications long-term current use of systemic steroi ds Encounter for long-term (current) use of steroids Medication monitoring encounter Encounter for therapeutic drug monitorin g documented in this encounter Care Teams Burner Technician Relationship Specialty Start Date End Date Jennifer Silva APRN PCP - General 09/10/10 07/01/17 documented as of this encounter
--- OUTSIDE RECORDS SUMMARY | 2022-07-08 09:34 | XMS_ITS | Encounter Summary ---
:1945 Author Organization [facility] [place] [address] Care Team Providers Name Role Phone Terri Bowser MD Primary Care Provider Reason for Visit Reason Comments Medication Refill Encounter Details Date Type Department Care Team Description 09/25/[address] [facility] [place] Alisha Heredia [place] [address] RHEUMATOLOGY DEPT. [phone] [place], [place] [address] (Wo rk) Social History Tobacco [...] Toño Rodriguez PA [facility] [address] [place], [place] [address] (Wo rk) documented as of [...] on filedocumented in this encounter Care Teams Appraiser Real Estate Relationship Specialty Start Date End Date Terri Bowser MD PCP - General Family Medicine 07/02/17 [address] [place] [address] documented as of this encounter
--- OUTSIDE RECORDS SUMMARY | 2022-07-08 09:34 | XMS_ITS | Encounter Summary ---
:1945 Author Organization [facility] [place] [address] Care Team Providers Name Role Phone Jennifer Silva APRN Primary Care Provider Encounter Details Date Type Department Care Team Description 02/12/2017 [place] [facility] [place] [address] Social History Tobacco Use Types Packs/Day Years Used Date Former Smoker 2 Quit: 07/19/19 77 Smokeless Tobacco: Never Used Alcohol Use Standard Drinks/Week Comments No 0 (1 standard drink = 0.6 oz pure alcoho l) Sex Assigned at Date Recorded Not on file documented as of this encounter Miscellaneous Notes Telephone Encounter - Yola Wilcox LPN - 02/12/2017 8:53 AM EDT Sandra phones to report that she is doing well with the Enbrel. She needs a new prednisone Rx for her taper. documented in this encounter Plan of Treatment Upcoming Encounters Date Type Specialty Care Team Description 02/26/2023 Office Visit Rheumatology Toño Rodriguez PA [facility] RHEUMATOLOGY [place], [place] [address] (Wo rk) documented as of this encounter Visit Diagnoses Not on filedocumented in this encounter Care Teams Vp Product Relationship Specialty Start Date End Date Jennifer Silva APRN PCP - General 09/10/10 07/01/17 documented as of this encounter
--- OUTSIDE RECORDS SUMMARY | 2022-07-08 09:34 | XMS_ITS | Encounter Summary ---
:1945 Author Organization [facility] [place] [address] Care Team Providers Name Role Phone Terri Bowser MD Primary Care Provider Reason for Visit Reason Comments Medication Refill Encounter Details Date Type Department Care Team Description 09/26/2015 Refill Rheumatology at [facility] [place] Alisha Heredia APRN [facility] [place] [address] RHEUMATOLOGY DEPT. [phone] [place], [place] [address] (Wo rk) Social History Tobacco [...] Rodriguez PA [facility] [address] [place] [address] (Wo rk) documented as [...] on filedocumented in this encounter Care Teams Infirmary Attendant Relationship Specialty Start Date End Date Terri Bowser MD PCP - General Family Medicine 07/02/17 [address] [place] [address] documented as of this encounter
--- OUTSIDE RECORDS SUMMARY | 2022-07-08 09:34 | XMS_ITS | Encounter Summary ---
:1945 Author Organization [facility] [place] [address] Care Team Providers Name Role Phone Jennifer Silva APRN Primary Care Provider Encounter Details Date Type Department Care Team Description 12/26/2015 Office Visit Rheumatology at [facility] [place] Alisha Heredia, Psoriatic arthritis; [facility] MUSIC SOUND LIGHT TECHNICIAN adjunct faculty for medical terminology current use of systemic steroi ds; [facility] MED[facility] Medication monitoring encoun [facility]; [place] [address] [address] Psoriasis; [phone] RHEUMATOLOGY Immunization co unseling DEPT. [place], [place] [address] Social History Tobacco Use Types Packs/Day Years Used Date Former Smoker 2 Quit: 07/19/19 77 Smokeless Tobacco: Never Used Alcohol Use Standard Drinks/Week Comments No 0 (1 standard drink = 0.6 oz pure alcoho l) Sex Assigned at Date Recorded Not on file documented as of this encounter Last Filed Vital Signs Vital Sign Reading Time Taken Comments Blood Pressure 133/80 12/26/2015 8:26 AM EST Pulse 78 12/26/2015 8:26 AM EST Temperature 37.1 ??C (98.7 ??F) 12/26/2015 8:26 AM EST Respiratory Rate - - Oxygen Saturation 98% 12/26/2015 8:26 AM EST Inhaled Oxygen Concentration - - Weight 86.6 kg (191 lb) 12/26/2015 8:26 AM EST Height 157.5 cm (5' 2) 12/26/2015 8:26 AM EST Body Mass Index 34.93 12/26/2015 8:26 AM EST documented in this encounter Patient Instructions Patient InstructionsAlisha Heredia APRN - 12/26/2015 9:04 AM EST Starting 12/27/2015 take 4.5 mg prednisone daily until January 17, then decrease by 0.5 mg on the 11/02 of each month. Continue tylenol documented in this encounter Progress Notes Alisha Heredia APRN - 12/26/2015 8:33 AM EST Francisca Kong is a 70 y.o. female seen for ongoing evaluation and [...] G89.4 ??? Food intolerance K90.4 INTERVAL HISTORY: Last seen 05/2015. Reports hand stiffness and pain without swelling, using tylenolwith benefit. (1000 mg acetaminophen 2-3 times daily). NO OTC NSAIDs. Keeping active. Looking forward to working garden this year. Continues prednisone 5 mg po daily with vitamin D And calcium through s upplementation/dietary intake. Thickened skin at right elbow. Seen by PCP for persistent nodule along extensor surface left elbow s/p aspiration and compression for left elbow bursitis. Planned biopsy of site per pt. Reports imaging reveals muscle involvement. CTS L, with improvement with use of resting splints at night. Seen at [facility]rology [facility] confirming diagnosis per pt. Suspects fibromyalgia is contributing to generalized achiness. Stress associated with town election will subside in coming weeks. No fever, chills, recent or recurrent illness [...] gait instability SKIN: (-) Raynauds; (-) ulcers; (-) rash Current Outpatient Prescriptions on File Prior to Visit Medication Sig Dispense Refill ??? predniSONE (DELTASONE) 5 mg Tablet TAKE [...] 12.5 mg by mouth as needed. ??? folic acid (FOLVITE) 1 mg tablet Take 2 tablets by mouth daily. May need earlier refill. Dose increase. (Patient taking differently: Take 1 mg by mouth daily. May need earlier refill. Dose increase.) 180 tablet 3 ??? OXYcodone (ROXICODONE) 5 mg immediate release [...] inhaler 2 Puff(s), Inh, Q6H ??? [DISCONTINUED] predniSONE (DELTASONE) 5 mg Tablet TAKE ONE TABLET BY MOUTH EVERY DAY 30 tablet 1 ??? [DISCONTINUED] predniSONE (DELTASONE) 1 mg Tablet TAKE ONE TABLET BY MOUTH EVERY DAY (TAKE WITH 5 MG FOR A TOTAL DOSE OF 6 MG) 30 tablet 3 ??? [DISCONTINUED] Liraglutide (VICTOZA) 0.6 mg/0.1 mL (18 mg/3 mL) Pen Injector Inject 1.8 mg subcutaneously daily. 9 mL 6 ??? [DISCONTINUED] ZESTRIL 5 mg tablet Take 5 mg by mouth Daily. ??? [DISCONTINUED] hydrochlorothiazide (HYDRODIURIL) 25 mg tablet Take 1 tablet by mouth daily. 30 tablet No current facility-administered medications on file prior to visit. Allergies Allergen Reactions ??? Anesthetics - Amide Type Shortness Of Breath ??? Anesthetics - Marlyn Type Shortness Of Breath ??? Citalopram Hydrobromide Shortness Of Breath ??? Codeine Phosphate Palpitations ??? Epinephrine Palpitations ??? Escitalopram Oxalate Shortness Of Breath ??? Fluoxetine Hcl Shortness Of Breath and Palpitations ??? Lidocaine Palpitations ??? Penicillins Shortness Of Breath and Rash [...] Find [Unclassified Drug] All Antihistamines. PHYSICAL EXAMINATION: Filed Vitals: 12/26/15 0826 BP: 133/80 Pulse: 78 Temp: 37.1 ??C (98.7 ??F) TempSrc: Oral Height: 157.5 cm (5' 2) Weight: 86.637 kg (191 lb) SpO2: 98% Constitutional: Pleasant female sitting comfortably. HEENT: Normocephalic; [...] ROM functional, limited in bilateral flexion/rotation. (-) tender ?? Shoulders: Limited ROM in all planes (bilateral), (-) tender ?? Elbows: Functional ROM, (-) tender with extension; (-) extensor surface nodules or effusion ?? Wrists: Functional ROM; (-) effusion; (-) tenderness. ?? MCPs/PIPs: Functional ROM; (+) tender; (-) synovitis ?? (No) deformities; makes a near complete fist and claw ?? Hips: Functional ROM, independent seated -> standing/standing to seated (+) pain in low back with transitions. ?? Knees: Functional ROM, (-)effusions, (-) tenderness; (+) crepitus. ?? Ankles/feet: Functional ROM; decreased internal/external rotation; (-) tender at left lateral malleoli; (-) MTP compression tenderness Skin: Warm, dry; (-) telangiectasias; (-) ulcers; (+) thin hyperkeratotic rash (RIGHT elbow); (-) nail pitting;(-) bruising ASSESSMENT : Joint pain, hand osteoarthritis; psoriasis, osteoporosis; chronic steroid use. PLAN/RECOMMENDATIONS: ?? Prednisone taper 0.5 mg on 11/02 of the month. ?? Written instructions to patient. ?? Continue acetaminophen 1000 mg po 2-3 times daily. ?? Topical care for rash - right elbow. ?? Vitamin D level -> per PCP modified supplement. ?? Ongoing calcium and vitamin D dietary intake and supplementation. ?? Immunization counseling related to Prevnar 13 and PPSV 23 booster. ?? Follow up in 3 months, sooner for concerns, questions or increased signs/symptoms. 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
--- OUTSIDE RECORDS SUMMARY | 2022-07-08 09:34 | XMS_ITS | Encounter Summary ---
:1945 Author Organization [facility] [place] [address] Care Team Providers Name Role Phone Jennifer Silva APRN Primary Care Provider Encounter Details Date Type Department Care Team Description 11/17/2016 Telephone Rheumatology at [facility] [place] [address] Social History Tobacco Use Types Packs/Day Years Used Date Former Smoker 2 Quit: 07/19/19 77 Smokeless Tobacco: Never Used Alcohol Use Standard Drinks/Week Comments No 0 (1 standard drink = 0.6 oz pure alcoho l) Sex Assigned at Date Recorded Not on file documented as of this encounter Miscellaneous Notes Telephone Encounter - Yola Wilcox LPN - 11/17/2016 10:22 AM EST ----- Message from Unique Wesley RN sent at 11/14/2016 3:47 PM EST ----- Regarding: to follow up on Thursday ----- Message ----- From: Alisha Heredia APRN Sent: 11/14/2016 3:40 PM To: [facility] Nurse Patient options are MAP or enbrel assist. If she needs card, or phone can you provide, please? My note documents enbrel. Thank you. Salma ----- Message ----- From: Unique Wesley RN Sent: 11/14/2016 2:18 PM To: Alisha Heredia APRN +++++++++++++++ Pt is going get the Enbrel after she has her teeth fixed and get over a dental infection. She found out that she will only have an $8.00 copay thru her insurance. She will call and set up a nurse visitto have instructions on how to inject the medication. documented in this encounter Plan of Treatment Upcoming Encounters Date Type Specialty Care Team Description 02/26/2023 Office Visit Rheumatology Toño Rodriguez PA [facility] [address] [place], [place] [address] (Wo rk) documented as of this encounter Visit Diagnoses Not on filedocumented in this encounter Care Teams Level Vial Sealer Relationship Specialty Start Date End Date Jennifer Silva APRN PCP - General 09/10/10 07/01/17 documented as of this encounter
--- OUTSIDE RECORDS SUMMARY | 2022-07-08 09:34 | XMS_ITS | Encounter Summary ---
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 [place], [place] [address] Social History Tobacco Use Types Packs/Day Years Used Date Former Smoker 2 Quit: 07/19/19 77 Smokeless Tobacco: Never Used Alcohol Use Standard Drinks/Week Comments No 0 (1 standard drink = 0.6 oz pure alcoho l) Sex Assigned at Date Recorded Not on file documented as of this encounter Last Filed Vital Signs Vital Sign Reading Time Taken Comments Blood Pressure 113/67 04/29/2016 11:46 AM EDT Pulse 80 04/29/2016 11:46 AM EDT Temperature 36.8 ??C (98.3 ??F) 04/29/2016 11:46 AM EDT Respiratory Rate - - Oxygen Saturation 99% 04/29/2016 11:46 AM EDT Inhaled Oxygen Concentration - - Weight 84.4 kg (186 lb) 04/29/2016 11:46 AM EDT Height 157.5 cm (5' 2) 04/29/2016 11:46 AM EDT Body Mass Index 34.02 04/29/2016 11:46 AM EDT documented in this encounter Progress Notes Alisha Heredia, MATE FIRST - 04/29/2016 12:15 PM EDT Francisca Kong is a 71 [...] G89.4 ??? Food intolerance K90.4 INTERVAL HISTORY: Definitely noting increased pain and stiffness all over with joint swelling in left wrist. No redness or warmth. Carpal tunnel diagnosis in recent weeks, (L) and continues wearing a resting wrist splint. Hips stiff, they want me to have joint replacements (OSH - ORTHO). Current doseof prednisone is 2.5 mg daily. No OTC NSAIDs. Worsening psoriasis rash on scalp. Previously see by Dr. June. No t sure where is located now. Uncertain but contemplating biologic for arthritis, still many questions related to potential adverse effect/risk and benefit with personal medical history. Ongoing calcium through diet, vitamin D supplementation [...] 2.5 mg daily) 150 tablet 2 ??? lisinopril (PRINIVIL;ZESTRIL) 10 mg Tablet ??? fluticasone (FLONASE) 50 mcg/actuation [place], Suspension ??? FLOVENT HFA 220 mcg/actuation HFA [...] mcg/Actuation inhaler 2 Puff(s), Inh, Q6H ??? predniSONE (DELTASONE) 5 mg Tablet TAKE ONE TABLET BY MOUTH EVERY DAY (Patient not taking: Reported on 04/16/2016) 30 tablet 1 No current facility-administered medications on file prior [...] [Unclassified Drug] All Antihistamines. PHYSICAL EXAMINATION: Vitals: 04/29/16 1146 BP: 113/67 Pulse: 80 Temp: 36.8 ??C (98.3 ??F) TempSrc: Oral SpO2: 99% Weight: 84.4 kg (186 lb) Height: 157.5 [...] elbow. Healed incision proximal to elbow joint. (+) nontender, fullness, (-) erythema. (+) tender, (+) swelling left wrist. MCPs/ PIPs: Functional ROM; (+) tender; (-) synovitis. Makes a near complete fist and claw. Hips: Functional ROM, independent seated -> standing/standing to seated, stiff, wide gait with use of cane (+) pain in low back with transitions. Skin: Warm, dry; (-) telangiectasias; (-) ulcers; (+) thin hyperkeratotic rash (RIGHT elbow); nape of neck; (-) nail pitting;(-) bruising ASSESSMENT : Fibromyalgia; joint pain, hand osteoarthritis; psoriasis, osteoporosis; chronic steroiduse. PLAN/RECOMMENDATIONS: Immediately prior to the start of the procedure, I confirmed the patient's identity, intended procedure, including site/side, the correct patient positioning, site marked, and the availability of special equipment. Procedure Note: Site LEFT wrist After informed verbal consent obtained, the area was prepped with an iodine solution. Ethyl chloridewas applied as a topical anesthetic. Bupivicaine (1cc) and Depomedrol 40 mg were injected into site without complication. The patient was advised of potential adverse reactions including infection, hyperglycemia, and skin atrophy. The patient was advised to call the clinic immediately for fever, chills, sweats, or increased redness, warmth, pain or swelling over the injection site. Follow up contact in coming week ot report on response. ?? Labs reviewed. ?? Hand imaging reviewed -> see below. ?? Continue prednisone 2.5 mg daily. ?? Continue acetaminophen 1000 mg po 2-3 times daily. ?? Will follow up with Dr June for scalp psoriasis. ?? ORTHO (OSH) -> hip stiffness and pain. ?? Vitamin D level -> per PCP modified supplement. ?? Ongoing calcium and vitamin D dietary intake and supplementation. ?? Follow up in 12 weeks, sooner for concerns, questions or increased signs/symptoms. Addendum: Component Latest Ref Rng 04/16/2016 Glucose Lvl [...] fL 10.9 CRP High Sens mg/L 2.6 04/16/2016: EXAMINATION: XR BILATERAL HANDS MINIMUM 3 VIEWS [...] scaphoid as described. Right hand: Stable examination. ?? 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
--- OUTSIDE RECORDS SUMMARY | 2022-07-08 09:34 | XMS_ITS | Encounter Summary ---
:1945 Author Organization [facility] [place] [address] Care Team Providers Name Role Phone Jennifer Silva APRN Primary Care Provider Encounter Details Date Type Department Care Team Description 07/15/2016 Telephone Rheumatology at [facility] [place] [address] Social History Tobacco Use Types Packs/Day Years Used Date Former Smoker 2 Quit: 07/19/19 77 Smokeless Tobacco: Never Used Alcohol Use Standard Drinks/Week Comments No 0 (1 standard drink = 0.6 oz pure alcoho l) Sex Assigned at Date Recorded Not on file documented as of this encounter Miscellaneous Notes Telephone Encounter - Yola Wilcox LPN - 07/15/2016 3:01 PM EDT Pt phones to report that she would like to start on a biologic as she is on a prednisone taper and discussed this matter with her PCP. Please advise. I have called and left a message with Sandra that I would send Salma Heredia a message about this. ++++ RTC to Sandra and she would like to get her labs drawn at [facility] in [facility]. I have sent a message to Salma Heredia. documented in this encounter Plan of Treatment Upcoming Encounters Date Type Specialty Care Team Description 02/26/2023 Office Visit Rheumatology Toño Rodriguez PA [facility] [address] [place], [place] [address] (Wo rk) documented as of this encounter Visit Diagnoses Not on filedocumented in this encounter Care Teams Knowledge Engineer Relationship Specialty Start Date End Date Jennifer Silva APRN PCP - General 09/10/10 07/01/17 documented as of this encounter
--- OUTSIDE RECORDS SUMMARY | 2022-07-08 09:34 | XMS_ITS | Encounter Summary ---
:1945 Author Organization [facility] [place] [address] Care Team Providers Name Role Phone Jennifer Silva APRN Primary Care Provider Reason for Visit Reason Comments Macular Degeneration Encounter Details Date Type Department Care Team Description 12/26/2015 Office Visit Ophthalmology at [facility] Romeo Jesus, AMD (age related [facility] MD macular degeneration) [place] [address] [place] [address] OPHTHALMOLOGY [place] [id number] Social History Tobacco Use Types Packs/Day Years Used Date Former Smoker 2 Quit: 07/19/19 77 Smokeless Tobacco: Never Used Alcohol Use Standard Drinks/Week Comments No 0 (1 standard drink = 0.6 oz pure alcoho l) Sex Assigned at Date Recorded Not on file documented as of this encounter Progress Notes Romeo Jesus MD - 12/26/2015 12:20 PM EST ASSESSMENT 1. AMD (age related macular degeneration) OD end stage disciform scar. OS exudative in past, but not recently. 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 Now with one chronic tiny juxtafoveal cyst on OCT which has not changed/progressed at all. Stable vision OU OCT shows small chronic cysts overlying atrophic scar OU PLAN Observe Plan: Recheck in 6 months and OCT OU The ophthalmology scribe for this encounter is Benny Gomes, COA I performed and personally participated in the cortez and critical portions of the service. I have reviewed/updated the documentation, and confirm that all of the information is accurate as described. Romeo Jesus MD documented in this encounter Plan of Treatment Upcoming Encounters Date Type Specialty Care Team Description 02/26/2023 Office Visit Rheumatology Toño Rodriguez PA [facility] RHEUMATOLOG[facility] [place], [place] [address] (Wo rk) documented as of this encounter Procedures Procedure Name Priority Date/Time Associated Diagnosis Comme nts OCT RETINA - OU - Routine 12/26/2015 5:46 PM AMD (age related Results for this BOTH EYES EST macular procedure are i n degeneration) the results section. documented in this encounter Results OCT Bhrfep-OF-DDSB EYES (12/26/2015 5:46 PM EST) Anatomical Region Laterality Modality Other Specimen (Source) Anatomical Location Collection Method / Collectio n Time Received Time / Laterality Volume Narrative 12/26/2015 5:46 PM EST Right Eye Findings include subretinal scarring. Left Eye Findings include subretinal scarring. Notes OD small fluid overlying scar OS stable small cyst Romeo Jesus MD OPHTHALMOLOGY SERVICES ORDER KEKE documented in this encounter Visit Diagnoses Diagnosis AMD (age related macular degeneration) Macular degeneration (senile) of retina, unspecified documented in this encounter Care Teams Teaching Associate Relationship Specialty Start Date End Date Jennifer Silva APRN PCP - General 09/10/10 07/01/17 documented as of this encounter
--- OUTSIDE RECORDS SUMMARY | 2022-07-08 09:34 | XMS_ITS | Encounter Summary ---
:1945 Author Organization [facility] [place] [address] Care Team Providers Name Role Phone [place]Jennifer mckeon Kelsey GILL Primary Care Provider Reason for Visit Reason Onset Date Comments Other 09/19/2015 question Encounter Details Date Type Department Care Team Description 09/19/2015 Telephone Rheumatology at [facility] Brittany Spivey, Other (question) [facility] [place] [address] Social History Tobacco Use Types Packs/Day Years Used Date Former Smoker 2 Quit: 07/19/19 77 Smokeless Tobacco: Never Used Alcohol Use Standard Drinks/Week Comments No 0 (1 standard drink = 0.6 oz pure alcoho l) Sex Assigned at Date Recorded Not on file documented as of this encounter Miscellaneous Notes Telephone Encounter - Brittany Spivey RN - 09/19/2015 3:27 PM EST Needs to follow up with ORTHO who had been treating - I think [facility]. My appointment can stand - this is to keep her in the loop - psoriatic arthritis-ly. Thank you. Salma Called Francisca and relayed Salma's message above. She verbalized understanding of information. Telephone Encounter - Brittany Spivey RN - 09/19/2015 1:57 PM EST Francisca called and left message that she received an appointment with Salma, but it is not until October. She says her elbow is quite painful and swollen and her oxycodone does nothing to relieve the pain.She is wondering if she can get an xray done of her left elbow. documented in this encounter Plan of Treatment Upcoming Encounters Date Type Specialty Care Team Description 02/26/2023 Office Visit Rheumatology Toño Rodriguez PA [facility] RHEUMATOLOGY [place], [place] [address] (Wo rk) documented as of this encounter Visit Diagnoses Not on filedocumented in this encounter Care Teams Plant Controls Specialist Relationship Specialty Start Date End Date Jennifer Silva APRN PCP - General 09/10/10 07/01/17 documented as of this encounter
--- OUTSIDE RECORDS SUMMARY | 2022-07-08 09:35 | XMS_ITS | Encounter Summary ---
:1945 Author Organization [facility] [place] [address] Care Team Providers Name Role Phone Savannah Ledesma APRN Primary Care Provider Reason for Visit Reason Comments Myalgia/myositis Encounter Details Date Type Department Care Team Description 06/29/2014 Follow-Up Rheumatology at [facility], DR PATEL Psoriatic arthritis (Primary Dx); [facility] Alisha Heredia APRN [facility] [place] [address] Encounter for long-term (current) use of other medications; Luca High risk medication use; [place] [address] Chronic steroid use; [phone] Osteoporosis Social History Tobacco Use Types Packs/Day Years Used Date Former Smoker 2 Quit: 07/19/19 79 Smokeless Tobacco: Never Used Alcohol Use Standard Drinks/Week Comments No 0 (1 standard drink = 0.6 oz pure alcoho l) Sex Assigned at Date Recorded Not on file documented as of this encounter Last Filed Vital Signs Vital Sign Reading Time Taken Comments Blood Pressure 119/66 06/29/2014 11:44 AM EDT Pulse 91 06/29/2014 11:44 AM EDT Temperature - - Respiratory Rate 20 06/29/2014 11:44 AM EDT Oxygen Saturation - - Inhaled Oxygen Concentration - - Weight 83.8 kg (184 lb 12.8 oz) 06/29/2014 11:44 AM EDT Height 157.5 cm (5' 2.01) 06/29/2014 11:44 AM EDT Body Mass Index 33.79 06/29/2014 11:44 AM EDT documented in this encounter Patient Instructions Patient InstructionsAlisha Heredia, LINE TECHNICIAN - 06/29/2014 1:22 PM EDT ?? Prednisone taper: alternating dose with taper by 0.5 mg at the first of each month. 6 mg/5.5 odd/even days, then 5.5 every day, then 5.5/5.0 dose monthly decrease. Written instructions to pt ?? Plan vitamin D level at next blood draw. ?? Ongoing calcium and vitamin D dietary intake and supplementation. ?? Continue methotrexate 20 mg po weekly (dividedd dose) and folic acid to 2 mg po daily.. ?? Precautions associated with DMARD - monitor for signs of infection. ?? DXA images reviewed - report pending. ?? Reassess inflammatory markers at follow up. http://www.cdc.gov/mmwr/preview/mmwrhtml/rj81l4604e6.htm CDC - Immunocompromised persons ...Persons on immunosuppressive therapy, including high-dose corticosteroids (>20 mg/day of prednisone or equivalent) lasting two or more weeks. Zoster vaccination should be deferred for at least 1 month after discontinuation of such therapy (209). Short-term corticosteroid therapy (<14 days); lo h-nn-zxcxtvzf dose (<20 mg/day of prednisone or equivalent); topical (e.g., nasal, skin, inhaled); intra-articular, bursal, or tendon injections; or long- term alternate-day treatment with low to moderate doses of short-acting systemic corticosteroids are not considered to be sufficiently immunosuppressive to cause concerns for vaccine safety. Persons receiving this dose or schedule can receive zoster vaccine. Therapy with low-doses of methotrexate (<0.4 mg/Kg/week)... ---> Patient receiving less than 0.4 mg/Kg/week of methotrexate. To whom should shingles vaccine be given? A single dose of zoster vaccine is recommended for adults age 60 years and older whether or not they report a prior episode of herpes zoster. Persons with chronic medical conditions may be vaccinated unless a contraindication or precaution exists for their condition. For a copy of the ACIP recommendations on zoster vaccine, go to www.cdc.gov/mmwr/PDF/rr/sl23s1173.pdf PLAN: Will copy note to patient and PCP ?? Pt will contact PCP to discuss Zoster vaccine, Spine Center referral. ?? Consider Boniva or reclast after DXA report completed and reviewed -> follow up contact PCP. ?? Follow up in 6 months, sooner for concerns, questions or increased signs or symptoms. ?? documented in this encounter Progress Notes Alisha Heredia APRN - 06/29/2014 12:07 PM EDT Images from the original note were not included. Francisca Kong is a 69 y.o. female seen for ongoing evaluation and management of psoriatic arthritis. She is unaccompanied. Patient Active Problem List Diagnosis Code ??? Coronary artery disease 414.00 ??? DJD (degenerative joint disease) 715.90 ??? GERD (gastroesophageal reflux disease) 530.81 ??? Lipid disorder 272.9 ??? Psoriatic arthritis 696.0 ??? Reactive airway disease 493.90 ??? AMD (age related macular degeneration) 362.50 ??? Fibromyalgia 729.1 ??? Osteopenia 733.90 ??? History of tobacco abuse V15.82 ??? HTN (hypertension) 401.9 ??? Diabetes mellitus type II 250.00 ??? Hyperlipidemia 272.4 ??? Paroxysmal SVT (supraventricular tachycardia) 427.0 ??? Asthma 493.90 ??? Major depression 296.20 ??? Irritable bowel 564.1 ??? Arthritis 716.90 ??? PTSD (post-traumatic stress disorder) 309.81 ??? COPD (chronic obstructive pulmonary disease) 496 ??? Bronchospasm 519.11 ??? Anxiety state, unspecified 300.00 ??? Hx of tobacco use, presenting hazards to health V15.82 ??? Sinusitis 473.9 ??? Stomatitis 528.00 ??? Macular degeneration, wet 362.52 ??? Nerve entrapment 355.9 ??? Neuropathy 355.9 ??? Chronic pain syndrome 338.4 ??? Food intolerance 579.8 INTERVAL HISTORY: Plan at the time of last office visit as follows: Updates in BOLD italics. ?? Continue prednisone 6 mg po daily. Ongoing ?? Ongoing calcium and vitamin D dietary intake and supplementation. Ongoing - vitamin D monthly. ?? Change route - methotrexate subcutaneous injection vs oral. Methotrexate - allergic to base - continues with oral. ?? Patient instruction - demonstration. RX ot preferred pharmacy. ?? HOLD po methotrexate. ?? Methotrexate 20 mg weekly and folic acid to 2 mg po daily. Ongoing single dose MTX and FA 2 mg podaily. ?? LABs requested - further planning - pending review. Completed at last office visit and reviewed. ?? Precautions associated with DMARD - monitor for signs of infection. Ongoing recommendation. ?? DXA to be scheduled - discussed reclast -> indications, pre-screening and potential adverse effects. Completed today. ?? Reassess inflammatory markers at follow up. Noted. (+) psoriasis rash improved. (+) Using topicals. Reviewed: http://www.cdc.gov/mmwr/preview/mmwrhtml/nn39l7644j8.htm CDC - Immunocompromised persons ...Persons on immunosuppressive therapy, including high-dose corticosteroids (>20 mg/day of prednisone or equivalent) lasting two or more weeks. Zoster vaccination should be deferred for at least 1 month after discontinuation of such therapy (209). Short-term corticosteroid therapy (<14 days); lo u-jw-vfogfmmb dose (<20 mg/day of prednisone or equivalent); topical (e.g., nasal, skin, inhaled); intra-articular, bursal, or tendon injections; or long- term alternate-day treatment with low to moderate doses of short-acting systemic corticosteroids are not considered to be sufficiently immunosuppressive to cause concerns for vaccine safety. Persons receiving this dose or schedule can receive zoster vaccine. Therapy with low-doses of methotrexate (<0.4 mg/Kg/week)... ---> Patient receiving less than 0.4 mg/Kg/week of methotrexate. To whom should shingles vaccine be given? A single dose of zoster vaccine is recommended for adults age 60 years and older whether or not they report a prior episode of herpes zoster. Persons with chronic medical conditions may be vaccinated unless a contraindication or precaution exists for their condition. For a copy of the ACIP recommendations on zoster vaccine, go to www.cdc.gov/mmwr/PDF/rr/ya45u8571.pdf Ongoing follow up with Dr. 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 Scheduled on 6 months interval - stable. To be seen later today. Sees Dr. Keane annually for coronaryartery disease s/p single vessel stent. Trying to remain active. 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 Prior [facility] referral -> reviewed note with patient. Had declined use of gabapentin, PCP thought enough meds already. No further contact with [facility] (2010). Would consider return but wants to discuss with SAVANNAH LEDESMA APRN. Denies recurrent iinfection. 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 Reports no other changes in medical, surgical, or social history. Is up to date on routine health maintenance and screening exams. Plan annual influenza vaccine. ROS: GEN: (-) fever; (-) night sweats; [...] SKIN: (-) Raynauds; (-) ulcers; (+) rash -> elbows/back Current Outpatient Prescriptions on File Prior to Visit Medication Sig Dispense Refill ??? methotrexate 2.5 mg tablet Take 8 tablets by mouth once a week. 104 tablet 1 ??? ZESTRIL 5 mg tablet Daily. ??? clobetasol (TEMOVATE) 0.05 % cream Apply topically 2 times daily. SA/SUN 30 g 0 ??? Syringe with Needle, Disp, (TUBERCULIN SYRINGE) 1 mL 27 x 1/2 Syrg With methotrexate injection.13 Syringe 1 ??? predniSONE (DELTASONE) 1 mg tablet Take 1 tablet by mouth daily. Take with 1 5 mg tablet for a 6mg daily dose 30 tablet 2 ??? predniSONE (DELTASONE) 5 mg tablet Take 1 tablet by mouth daily. Take with 1 1 mg tablet for a 6mg daily dose. 30 tablet 2 ??? Calcipotriene (DOVONEX) 0.005 % Soln Apply to affected area BID THU-THU-THU 60 mL 0 ??? folic acid (FOLVITE) 1 mg tablet Take 2 tablets by mouth daily. May need earlier refill. Dose increase. 180 tablet 3 ??? VITAMIN D 50,000 unit capsule TAKE ONE CAPSULE BY MOUTH EVERY 30 DAYS 3 capsule 3 ??? OXYcodone (ROXICODONE) 5 mg immediate release tablet Take 5 mg by mouth daily as needed. ??? hydrochlorothiazide (HYDRODIURIL) 25 mg tablet Take 1 tablet by mouth daily. 30 tablet ??? aspirin 325 mg tablet Take 325 mg by mouth daily. ??? CALCIUM ORAL Take 1,600 mg by mouth daily. ??? OMEGA-3S/DHA/EPA/FISH OIL (OMEGA 3 ORAL) Take 4,800 mg by mouth daily. ??? rosuvastatin (CRESTOR) 5 mg tablet [...] inhaler 2 Puff(s), Inh, Twice daily ??? [DISCONTINUED] methotrexate 25 mg/mL chemo injection Inject 0.8 mLs into the vein every 7 days. 5 vial 2 ??? meclizine (ANTIVERT) 12.5 mg tablet ??? [DISCONTINUED] INSULIN REGULAR, HUMAN (NOVOLIN R PENFILL INJ) Inject 0-10 Units as directed daily as needed. ??? ascorbic acid (VITAMIN C) 1,000 mg tablet Take 1,000 mg by mouth as needed. ??? diaZEPam (VALIUM) 2 mg tablet Take 1 mg by mouth every 6 hours as needed. ??? acetaminophen (TYLENOL EXTRA STRENGTH) 500 mg tablet Take 1,000 mg by mouth 3 times daily as needed. Half tablet = 1MG ??? LEVALBUTEROL HCL (XOPENEX CONCENTRATE INHL) Inhale 1 Nebules into the lungs every 8 hours as needed. ??? MAGNESIUM CHLORIDE (SLOW-MAG ORAL) Take 99 mg by mouth 2 times daily. ??? CYANOCOBALAMIN, VITAMIN B-12, (VITAMIN B-12 ORAL) ??? Levalbuterol Tartrate (XOPENEX HFA) 45 mcg/Actuation [...] Rash ??? Sulfa (Sulfonamide Antibiotics) Hives ??? Iodine-Iodine Containing Rash ??? Nsaids (Non-Steroidal Anti-Inflammatory Drug) Palpitations and Other (See Comments) Hypertension ??? Beta-Blockers (Beta-Adrenergic Blocking Agts) ??? Ether Hives ??? Histamine Palpitations SVT's ??? Montelukast Sodium Diarrhea and Nausea And Vomiting ??? Morphine Sulfate Pt requests no morphine. ??? Unable To Find (Unclassified Drug) All Antihistamines. PHYSICAL EXAMINATION: Filed Vitals: 06/29/14 1144 BP: 119/66 Pulse: 91 Resp: 20 Height: 157.5 cm (5' 2.01) Weight: 83.825 kg (184 lb 12.8 oz) Constitutional: Pleasant female sitting comfortably. HEENT: Normocephalic; (-) scleral injection, oral mucous membranes moist and intact. Neck: Neck supple; (-) lymphadenopathy (-) thyromegaly (-) parotid or submandibular gland enlargement Pulm: CTA; no wheezing, rales or rhonchi CV: RRR; no murmur or extra sounds; no CCE Neuro: Gait forward-bending; even and co-ordinated with use of a cane; speech clearly articulated Musculoskeletal: Muscle mass bilaterally symmetric. Joint exam: ?? Neck: ROM functional, limited in bilateral flexion/rotation ?? Shoulders: Limited ROM in all planes (bilateral), (+) tender ?? Elbows: Functional ROM, nontender; (-) extensor surface nodules or effusion ?? Wrists: Functional ROM; (-) effusion; (-) tenderness; (-) erythema or warmth. ?? MCPs/PIPs: Functional ROM; (-) tender; (-) synovitis ?? (No) deformities; makes a near complete fist and claw ?? Hips: Functional ROM, (-) tender; independent seated -> standing/standing to seated ?? Knees: Functional ROM, (-)effusions, (+) tenderness; (+) crepitus. ?? Ankles/feet: Functional ROM; decreased internal/external rotation; (-)MTP compression tenderness Skin: Warm, dry; (-) telangiectasias; (-) ulcers; (+) thin hyperkeratotic rash (LEFT elbow) and excoriations at right upper back -> no secondary infection; (-) nail pitting;(-) bruising Labs: Reviewed. ASSESSMENT : Joint and muscle pain, psoriasis, osteoarthritis, osteoporosis; chronic steroid use. PLAN/RECOMMENDATIONS: ?? Prednisone taper: alternating dose with taper by 0.5 mg at the first of each month. 6 mg/5.5 odd/even days, then 5.5 every day, then 5.5/5.0 dose monthly decrease. Written instructions to pt ?? Plan vitamin D level at next blood draw. ?? Ongoing calcium and vitamin D dietary intake and supplementation. ?? Continue methotrexate 20 mg po weekly (dividedd dose) and folic acid to 2 mg po daily.. ?? Precautions associated with DMARD - monitor for signs of infection. ?? DXA images reviewed - report pending. ?? Reassess inflammatory markers at follow up. http://www.cdc.gov/mmwr/preview/mmwrhtml/fa16g9938b1.htm CDC - Immunocompromised persons ...Persons on immunosuppressive therapy, including high-dose corticosteroids (>20 mg/day of prednisone or equivalent) lasting two or more weeks. Zoster vaccination should be deferred for at least 1 month after discontinuation of such therapy (209). Short-term corticosteroid therapy (<14 days); lo o-ag-acdcwoot dose (<20 mg/day of prednisone or equivalent); topical (e.g., nasal, skin, inhaled); intra-articular, bursal, or tendon injections; or long- term alternate-day treatment with low to moderate doses of short-acting systemic corticosteroids are not considered to be sufficiently immunosuppressive to cause concerns for vaccine safety. Persons receiving this dose or schedule can receive zoster vaccine. Therapy with low-doses of methotrexate (<0.4 mg/Kg/week)... ---> Patient receiving less than 0.4 mg/Kg/week of methotrexate. To whom should shingles vaccine be given? A single dose of zoster vaccine is recommended for adults age 60 years and older whether or not they report a prior episode of herpes zoster. Persons with chronic medical conditions may be vaccinated unless a contraindication or precaution exists for their condition. For a copy of the ACIP recommendations on zoster vaccine, go to www.cdc.gov/mmwr/PDF/rr/bx21d7473.pdf PLAN: Will copy note to patient and PCP ?? Pt will contact PCP to discuss Zoster vaccine, Spine Center referral. ?? Consider Boniva or reclast after DXA report completed and reviewed -> follow up contact PCP. ?? Follow up in 6 months, sooner for concerns, questions or increased signs or symptoms. documented in this encounter Plan of Treatment Upcoming Encounters Date Type Specialty Care Team Description 02/26/2023 Office Visit Rheumatology Toño Rodriguez PA [facility] [address] [place], [place] [address] (Wo rk) documented as of this encounter Visit Diagnoses Diagnosis Psoriatic arthritis - Primary Psoriatic arthropathy Encounter for long-term (current) use of other medications High risk medication use Encounter for long-term (current) use of other medications Chronic steroid use Encounter for long-term (current) use of steroids Osteoporosis Osteoporosis, unspecified documented in this encounter Care Teams Typing Office Worker Relationship Specialty Start Date End Date Savannah Ledesma APRN PCP - General 09/10/10 07/01/17 documented as of this encounter
--- OUTSIDE RECORDS SUMMARY | 2022-07-08 09:35 | XMS_ITS | Encounter Summary ---
:1945 Author Organization [facility] [place] [address] Care Team Providers Name Role Phone Terri Bowser MD Primary Care Provider Reason for Visit Reason Comments Medication Refill Encounter Details Date Type Department Care Team Description 05/31/2015 [place] [facility] Alisha Heredia APRN [facility] [place] [address] RHEUMATOLOGY DEPT. [phone] [place], [place] [address] (Wo rk) Social History Tobacco [...] PA [facility] [address] [place], [place] [address] (Wo rk) documented as of [...] on filedocumented in this encounter Care Teams Rural Carrier Associate Relationship Specialty Start Date End Date Terri Bowser MD PCP - General Family Medicine 07/02/17 [address] [place] [address] documented as of this encounter
--- OUTSIDE RECORDS SUMMARY | 2022-07-08 09:35 | XMS_ITS | Encounter Summary ---
:1945 Author Organization [facility] [place] [address] Care Team Providers Name Role Phone Jennifer Silva APRN Primary Care Provider Encounter Details Date Type Department Care Team Description 05/25/2015 Telephone [place] [facility] [place]isha Heredia APRN [facility] [place] [facility] [place] [address] RHEUMATOLOGY DEPT. [phone] [place], [place] [address] (Wo rk) Social History Tobacco Use Types Packs/Day Years Used Date Former Smoker 2 Quit: 07/19/19 79 Smokeless Tobacco: Never Used Alcohol Use Standard Drinks/Week Comments No 0 (1 standard drink = 0.6 oz pure alcoho l) Sex Assigned at Date Recorded Not on file documented as of this encounter Miscellaneous Notes Telephone Encounter - Felicity Crump LPN - 05/25/2015 4:58 PM EDT Called pt to discuss Salma Montgomery instruction below. Unable to reach pt at both phone numbers listed. Lft msg to have pt call our office. Telephone Encounter - Felicity Crump LPN - 05/25/2015 4:55 PM EDT Multiple issues, and co-morbidities, some chronic and sounds like some are more urgent. If 9/10 painseems like ED would be able to evaluate and provide interval assessment and some management strategies. If any signs of infection, fever, chills, joint redness, weakness - needs to go to ED. I will copy to secretaries to schedule follow up. Thank you Salma Heredia Telephone Encounter - Felicity Crump LPN - 05/25/2015 2:30 PM EDT Pt calls today reporting that she has been experiencing generalized joint pain the past 5-6 weeks. Pt reports that est 10 days ago she began experiencing severe pain, location: generalized joint. 9/10 pain; aching, burning, stabbing pain. Pt took oxycodone 10 mg tablet at 1:45 pm today and symptoms are starting to alleviate a little bit, it makes the pain bearable, however, pt doesn't like the s/e of feeling druged up. She notes swelling in left knee, hands, and elbows; mild - noted the past 3-4 weeks. Pt is also experiencing intermittent numbness and tingling on her left side the past 3-4 months. She is also experiencing progressive weakness in extremities which she states started est 3-4 weeks ago. Pt denies: Fever and visible redness in joint areas, difficulty breathing and/or swallowing. Pt would like apt with Alisha Heredia to discuss sx. Msg forwarded to Alisha Heredia - please advise. Thank you. documented in this encounter Plan of Treatment Upcoming Encounters Date Type Specialty Care Team Description 02/26/2023 Office Visit Rheumatology Toño Rodriguez PA [facility] [address] [place], [place] [address] (Wo rk) documented as of this encounter Visit Diagnoses Not on filedocumented in this encounter Care Teams Artillery Maintenance Supervisor Relationship Specialty Start Date End Date Jennifer Silva APRN PCP - General 09/10/10 07/01/17 documented as of this encounter
--- OUTSIDE RECORDS SUMMARY | 2022-07-08 09:35 | XMS_ITS | Encounter Summary ---
:1945 Author Organization [facility] [place] [address] Care Team Providers Name Role Phone DelawareJennie mckeonhumphrey Cole APRN Primary Care Provider Reason for Visit Reason Onset Date Comments Other 09/29/2013 questions Encounter Details Date Type Department Care Team Description 09/29/2013 Telephone Rheumatology at [facility] Brittany Spivey, Other (questions) [facility] [place] [address] Social History Tobacco Use Types Packs/Day Years Used Date Former Smoker 2 Quit: 07/19/19 77 Smokeless Tobacco: Never Used Alcohol Use Standard Drinks/Week Comments No 0 (1 standard drink = 0.6 oz pure alcoho l) Sex Assigned at Date Recorded Not on file documented as of this encounter Miscellaneous Notes Telephone Encounter - Brittany Spivey RN - 10/07/2013 10:45 AM EST Francisca called and left message that she was not going to be able to come down on 10/05 due to weather. She asked that lab orders be faxed to [facility]. Called her back today and let her know new standing orders were sent to [facility] lab so she can have drawn every 3 months. She said someone from here sent orders up yesterday because she went to [facility] and had labs drawn yesterday. She said we should see the results anytime. Telephone Encounter - Brittany Spivey RN - 09/30/2013 11:05 AM EST Prednisone 6.5 daily for October. Thank you. Salma Called Francisca and left message letting her know Salma has no time available to see her 10/05, but labs can be ordered and she can have drawn when she is down here on 10/05. Also let her know on 10/19/13 prednisone dose will be 6.5 mg daily. Asked her to call back if she has any questions. Telephone Encounter - Brittany Spivey RN - 09/29/2013 1:50 PM EST Francisca is calling with several questions: First off appt time. Offered her 2:00 tomorrow, she can't make it. She is no longer able to drive and needs a truck driver. She suggested 10/05 because she is down here for another appt. She thought either 10:30 or 11:00 would work. Checked with Paulette, Salma does nothave openings for this time. She needs labs done for medication monitoring because she is on methotrexate. She asked that orders be entered here and she will have drawn on 10/[address] Mcduffie. Third she needs to know what her prednisone dose should be for October. Salma gave her instructionsfor Jul, Aug, and Sep. Lastly, she thinks she needs a DEXA scan, but probably should wait until the spring before ordering it. documented in this encounter Plan of Treatment Upcoming Encounters Date Type Specialty Care Team Description 02/26/2023 Office Visit Rheumatology Toño Rodriguez PA [facility] [address] [place], [place] [address] (Wo rk) documented as of this encounter Visit Diagnoses Not on filedocumented in this encounter Care Teams Vise Hand Relationship Specialty Start Date End Date Jennifer Silva APRN PCP - General 09/10/10 07/01/17 documented as of this encounter
--- OUTSIDE RECORDS SUMMARY | 2022-07-08 09:35 | XMS_ITS | Encounter Summary ---
:1945 Author Organization [facility] [place] [address] Care Team Providers Name Role Phone Terri Bowser MD Primary Care Provider Reason for Visit Reason Comments Medication Refill Encounter Details Date Type Department Care Team Description 09/29/2013 Refill [place]ology at [facility] [place] Alisha Heredia APRN [facility] [place] [address] RHEUMATOLOGY DEPT. [phone] [place], [place] [address] (Wo rk) Social History Tobacco [...] 02/26/2023 Office Visit Rheumatology Toño Rodriguez PA [facility] [address] [place], [place] [address] (Wo rk) documented as of this encounter Visit Diagnoses Not on filedocumented in this encounter Care Teams Information Technology Technician Relationship Specialty Start Date End Date Terri Bowser MD PCP - General Family Medicine 07/02/17 [address] [place] [address] documented as of this encounter
--- OUTSIDE RECORDS SUMMARY | 2022-07-08 09:35 | XMS_ITS | Encounter Summary ---
:1945 Author Organization [facility] [place] [address] Care Team Providers Name Role Phone ChelanJennie mckeonhumphrey Cole APRN Primary Care Provider Reason for Visit Reason Comments Macular Degeneration 6 months AMD OU (endstage OD ) Encounter Details Date Type Department Care Team Description 06/20/2015 Follow-Up Ophthalmology at [facility] Ella Dominguez AMD (age related [facility] Jade Burleson MD macular degeneration) [place] [address] [facility] [phone] OPHTHALMOLOGY DE PT. 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 Plan: Recheck in 6 months and OCT OS then. No injection indicated. documented in this encounter Plan of Treatment Upcoming Encounters Date Type Specialty Care Team Description 02/26/2023 Office Visit Rheumatology Toño Rodriguez PA [facility] RHEUMATOLOGY [place], [place] [address] (Wo rk) documented as of this encounter Procedures Procedure Name Priority Date/Time Associated Diagnosis Comme nts OCT RETINA - OS - Routine 06/20/2015 11:12 AM AMD (age related Results for this LEFT EYE EDT macular procedure are i n degeneration) the results section. documented in this encounter Results OCT Qgrqwi-WN-IROF EYE (06/20/2015 11:12 AM EDT) Anatomical Region Laterality Modality Other Specimen (Source) Anatomical Location Collection Method / Collectio n Time Received Time / Laterality Volume Narrative 06/20/2015 11:12 AM EDT OCT: OS tiny intraretinal cyst, no recur rent intraretinal fluid. Ella Mcduffie MD OPHTHALMOLOGY SERVICES ORDER KEKE documented in this encounter Visit Diagnoses Diagnosis AMD (age related macular degeneration) Macular degeneration (senile) of retina, unspecified documented in this encounter Care Teams Police Specialist Relationship Specialty Start Date End Date Jennifer Silva APRN PCP - General 09/10/10 07/01/17 documented as of this encounter
--- OUTSIDE RECORDS SUMMARY | 2022-07-08 09:35 | XMS_ITS | Encounter Summary ---
:1945 Author Organization [facility] [place] [address] Care Team Providers Name Role Phone Jennifer Silva APRN Primary Care Provider Encounter Details Date Type Department Care Team Description 12/20/2013 Orders Only [place] [facility] [place], Encounter for [facility] [employer]ER long-term (current) Drive [facility] [place] [address] [address] pearce [phone] RHEUMATOLOGY DEP [place], [place] [address] Social History Tobacco Use Types [...] 02/26/2023 Office Visit Rheumatology Toño Rodriguez PA [facility] DR MUNOZ [place], [place] [address] (Wo rk) Scheduled Orders Name Type Priority Associated Diagnoses Order S chedule CBC (with Diff) Lab Routine Encounter for long-term E xpected: 12/20/2013, (current) use of other Expir es: 12/21/2014 medications High Sensitivity CRP Lab Routine Encounter for long-t erm Expected: 12/20/2013, (current) use of other Expir es: 12/21/2014 medications documented as of this encounter Results Sedimentation rate (02/13/2014 2:50 PM EDT) athologist Signature Sed Rate 9 0 - 20 CERNER mm/hr MILLENNIUM Specimen Anatomical Collection Method Collection Time Receive d Time (Source) Location / / Volume Laterality Blood specimen 02/13/2014 2:50 PM 014 2:56 (specimen) EDT PM EDT Resulting Agency Comment Spec In Lab Maria A Suarez DO HEMATOLOGY ORDERABLES Performing Organization Address City/State/[place] [address] CERNER MILLENNIUM (ABNORMAL) Comprehensive metabolic panel (non-fasting) (02/13/2014 2:50 PM EDT) P athologist Signature Glucose Lvl 193 60 - 199 CERNER mg/dL MILLENNIUM Comment: Diabetes: >=200 mg/dL plus symp toms BUN 21 (H) 8 - 18 mg/dL CERNER MILLENNIUM Creatinine 0.73 0.70 - 1.20 mg/dL CERNER MILL ENNIUM Comment: Please note that the pediatric reference intervals supplied above were not validated at [facility] Results from pediatri c patients should be interpreted in conjunction to the patient's age, height and muscle mass. Sodium 139 135 - 145 mmol/L CERNER DEVON NIUM Potassium 3.3 (L) 3.5 - 5.0 mmol/L CERNER DEVON NIUM Comment: Please note: ??Patients with WBC >100,00 0 may have falsely elevated Potassium levels. ??For accurate Potassium quantif ication in these patients send serum separator tube (gold top) for subsequent determinations. ??Contact the Clinical Chemistry Laboratory if there are any qu estions. Chloride 97 (L) 98 - 107 mmol/L CERNER MILLENN IUM CO2 29 22 - 31 mmol/L CERNER MILLENNI UM Anion Gap 13 5 - 15 mmol/L SOURAV CHESTERENNIU M Calcium 9.6 8.5 - 10.5 mg/dL SOURAV CHESTEREN NIUM Total Protein 6.9 6.4 - 8.3 gm/dL SOURAV MIL LENNIUM Albumin 4.3 3.2 - 5.2 gm/dL CERNER HENRIKENN IUM AST 21 0 - 30 unit/L CERNER MILLENNIU M ALT 23 0 - 30 unit/L CERNER HENRIKENNIU M Alk Phos 65 40 - 104 unit/L CERFLAQUITO MILLENN IUM Total Bilirubin 0.3 0.2 - 1.3 mg/dL SOURAV M ILLENNIUM Bili, Direct 0.1 0.0 - 0.3 mg/dL SOURAV CHESTER ENNIUM Estimated GFR >60 >=60 SOURAV VASQUESIU M Comment: This estimated GFR (eGFR) value was [...] the following links into your internet browser. http://www.nkdep.nih.gov/lab-evaluation. shtml http://www.kidney.org/professionals/ Specimen Anatomical Collection Method Collection Time Receive d Time (Source) Location / / Volume Laterality Blood specimen 02/13/2014 2:50 PM 014 2:56 (specimen) EDT PM EDT Resulting Agency Comment Spec In Lab Maria A Suarez DO CHEMISTRY ORDERABLES Performing Organization Address City/State/ZIP Code Phon e Number [place] [phone] SOURAV ROSA documented in this encounter Visit Diagnoses Diagnosis Encounter for long-term (current) use of other medications documented in this encounter Care Teams Flow Manager Relationship Specialty Start Date End Date Jennifer Silva APRN PCP - General 09/10/10 07/01/17 documented as of this encounter
--- OUTSIDE RECORDS SUMMARY | 2022-07-08 09:35 | XMS_ITS | Encounter Summary ---
:1945 Author Organization [facility] Address [facility] [address] Care Team Providers Name Role Phone Jennifer Silva APRN Primary Care Provider Encounter Details Date Type Department Care Team Description 06/29/2014 Hospital Encounter XRay at [address] [place] [address] Social History Tobacco Use Types Packs/Day Years Used Date Former Smoker 2 Quit: 07/19/19 79 Smokeless Tobacco: Never Used Alcohol Use Standard Drinks/Week Comments No 0 (1 standard drink = 0.6 oz pure alcoho l) Sex Assigned at Date Recorded Not on file documented as of this encounter Medications at Time of Discharge Medication Sig Dispensed Refills Start Date End Date Insulin Lispro (HUMALOG Inject 2-22 Units 0 [...] 0 10/04 (XOPENEX HFA) 45 mcg/Actuation inhaler methotrexate 2.5 mg Take 8 tablets by 104 tablet 1 4 12/27/2014 tablet mouth once a week. ZESTRIL 5 mg tablet Take 5 mg by mouth 0 04/23/20 14 12/26/2015 Daily. clobetasol (TEMOVATE) Apply topically 2 30 g 0 014 03/07/2015 0.05 % cream times daily. SA/SUN Syringe with Needle, With methotrexate 13 Syringe 1 05/15/20 14 03/07/2015 Disp, (TUBERCULIN injection. SYRINGE) 1 mL 27 x 1/2 Syrg predniSONE (DELTASONE) 1 Take 1 tablet by 30 tablet 2 05/0210/28/2014 mg tablet mouth daily. Take with 1 5 mg tablet for a 6 mg daily dose predniSONE (DELTASONE) 5 Take 1 tablet by 30 tablet 2 05/0207/30/2014 mg tablet mouth daily. Take with 1 1 mg tablet for a 6 mg daily dose. Calcipotriene (DOVONEX) Apply to affected 60 mL 0 02/1303/07/2015 0.005 % Soln area BID THU-THU-THU folic acid (FOLVITE) 1 mg Take 2 tablets by 180 tablet 3 12/26/2015 tablet mouth daily. May need earlier refill. Dose increase. VITAMIN D 50,000 unit TAKE ONE CAPSULE BY 3 capsule 3 10/0610/07/2014 capsule MOUTH EVERY 30 DAYS hydrochlorothiazide Take 1 tablet by 30 tablet 0 06/29/2013 12/26/2015 (HYDRODIURIL) 25 mg mouth daily. tablet aspirin 325 mg tablet Take 81 mg by mouth 0 05/19/2022 daily. CALCIUM ORAL Take 1,600 mg by 0 2015 mouth daily. diaZEPam (VALIUM) 2 mg Take 1 [...] 01/30/20 11 03/15/2019 (SLOW-MAG ORAL) as needed. CYANOCOBALAMIN, VITAMIN 0 10/04/2010 0 03/07/2015 B-12, (VITAMIN B-12 ORAL) fluticasone (FLOVENT HFA) 2 Puff(s), Inh, 0 10/0404/29/2016 110 mcg/Actuation inhaler Twice daily documented as of this encounter Plan of Treatment Upcoming Encounters Date Type Specialty Care Team Description 02/26/2023 Office Visit Rheumatology Toño Rodriguez PA [facility] DR [place] [address] (Wo rk) documented as of this encounter Procedures Procedure Name Priority Date/Time Associated Diagnosis Comme nts DXA CENTRAL SPINE, Routine 06/29/2014 10:27 Osteoporosis Resul ts for this HIP, AND/OR WHOLE AM EDT procedure are in BODY (GENERIC) the results section. documented in this encounter Results Dexa central-spine, hip, and/or whole body (06/29/2014 10:27 AM EDT) Anatomical Region Laterality Modality C-spine, Hip N/A Radiographic Imaging Specimen (Source) Anatomical Collection Method Collection Time Re ceived Time Location / / Volume Laterality 06/29/2014 10:27 AM EDT Narrative 06/29/2014 5:00 PM EDT Examination DXA CENTRAL-SPINE,HIP, AND/OR WHOLE BODY Clinical History HISTORY OF OSTEOPOROSIS, PRIOR USE OF OR AL BISPHOSPHONATES;last 2010 Technique Scans were acquired at the left hip, lef t forearm. Findings Lowest T-score at a diagnostic region of interest: T-score: -3,FISH: Femoral neck, WHO diagn osis: Osteoporosis ........Comparison......... Recent scan: 2010, Baseline scan: 2006 Total Hip: Compared to the most recent scan, 17.2 % decreased. ?? Compared to the baseline scan, 32 % decr eased. ?? Total spine: Compared to the most recent scan, no sig nificant change. Compared to the baseline scan, 5.9 % dec reased. ?? Impression The measurements fulfill the WHO classif ication for osteoporosis and they are decreasing since 2010. The rate of loss is ??17 % decrease over 3 years. ?? Finding suggests limited response to or waning effect of past pharmacologic intervention. _ Estimating Fracture Risk: The relationship between bone mineral de nsity (BMD) and risk of fracture is well established. As BMD decreases, risk increases. Quantifying risk is difficult and is usually limited to pramod mation of the relative risk - a term which may have limited value when trying to discuss an individual's risk. Estimating the absolute risk for a patie nt requires an understanding of the incidence rate in a given population and consideration of multiple, partially independent, risk factors in addition to BMD. The World Health Organization (WHO) has developed a fracture risk prediction tool that calculates a ten-year risk of major osteoporotic fracture based on femoral neck bone density measurements a nd nine clinical risk factors for individuals who have not been treated fo r osteoporosis. This is available through an interactive web-based interfa ce (http://www.shef.ac.uk/FRAX/) and can be used to estimate a given patient' s absolute risk of major osteoporotic fracture or hip fracture over the next 1 0 years. These estimates may prove useful when discussing risk with a patie nt. It is important, however, to understand the tool's limitations and ho w a given individual's risk might differ from the tool's estimate. The too l does not take into account the dose-response associated with most risk factors. For example, the significant increase in risk associated with multipl e prior fractures compared to a single prior fracture is not taken into account . Similarly, the location of a previous fracture, the amount of glucocorticoids and number of cigarettes smoked are not considered. These limitations are discus sed in a Frequently Asked Questions section of the FRAX website which you ar e encouraged to review. DEXA data sheets with BMD measurements a nd plots are available in EPrivy under the imaging tab. Paper copies will be sent to providers without EPrivy access. If you have received this report without the data sheet and do not have access to EPrivy, please contact Radiology [facility] at [phone] Thursday thru Thursday 8am-4pm. Procedure Note Rea Serrano MD - 06/29/2014Formatt ing of this note might be different from the original. Examination DXA CENTRAL-SPINE,HIP, AND/OR WHOLE BODY Clinical History HISTORY OF OSTEOPOROSIS, PRIOR USE OF OR AL BISPHOSPHONATES;last 2010 Technique Scans were acquired at the left hip, lef t forearm. Findings Lowest T-score at a diagnostic region of interest: T-score: -3,FISH: Femoral neck, WHO diagn osis: Osteoporosis ........Comparison......... Recent scan: 2010, Baseline scan: 2006 Total Hip: Compared to the most recent scan, 17.2 % decreased. Compared to the baseline scan, 32 % decr eased. Total spine: Compared to the most recent scan, no sig nificant change. Compared to the baseline scan, 5.9 % dec reased. Impression The measurements fulfill the WHO classif ication for osteoporosis and they are decreasing since 2010. The rate of loss is 17 % decrease over 3 years. Finding suggests limited response to or waning effect of past pharmacologic intervention. _ Estimating Fracture Risk: The relationship between bone mineral de nsity (BMD) and risk of fracture is well established. As BMD decreases, risk increases. Quantifying risk is difficult and is usually limited to pramod mation of the relative risk - a term which may have limited value when trying to discuss an individual's risk. Estimating the absolute risk for a patie nt requires an understanding of the incidence rate in a given population and consideration of multiple, partially independent, risk factors in addition to BMD. The World Health Organization (WHO) has developed a fracture risk prediction tool that calculates a ten-year risk of major osteoporotic fracture based on femoral neck bone density measurements a nd nine clinical risk factors for individuals who have not been treated fo r osteoporosis. This is available through an interactive web-based [employer] (http://www.shef.ac.uk/FRAX/) and can be used to estimate a given patient' s absolute risk of major osteoporotic fracture or hip fracture over the next 1 0 years. These estimates may prove useful when discussing risk with a patie nt. It is important, however, to understand the tool's limitations and ho w a given individual's risk might differ from the tool's estimate. The too l does not take into account the dose-response associated with most risk factors. For example, the significant increase in risk associated with multipl e prior fractures compared to a single prior fracture is not taken into account . Similarly, the location of a previous fracture, the amount of glucocorticoids and number of cigarettes smoked are not considered. These limitations are discus sed in a Frequently Asked Questions section of the FRAX website which you ar e encouraged to review. DEXA data sheets with BMD measurements a nd plots are available in EPrivy under the imaging tab. Paper copies will be sent to providers without [employer] access. If you have received this report without the data sheet and do not have access to EPrivy, please contact Radiology [facility] at [phone] Thursday thru Thursday 8am-4pm. Rosalino George MD IMG DEXA ORDERABLES documented in this encounter Visit Diagnoses Diagnosis Osteoporosis Osteoporosis, unspecified documented in this encounter Care Teams Molecular Spectroscopist Relationship Specialty Start Date End Date Jennifer Silva APRN PCP - General 09/10/10 07/01/17 documented as of this encounter
--- OUTSIDE RECORDS SUMMARY | 2022-07-08 09:35 | XMS_ITS | Encounter Summary ---
:1945 Author Organization [facility] [place] [address] Care Team Providers Name Role Phone Crow WingJennifer APRN Primary Care Provider Encounter Details Date Type Department Care Team Description 05/15/2014 Hospital Encounter Laboratory Maria A Suarez [facility], [place] [address] RHEUMATOLOGY DEP [place], [place] [address] (Wo rk) Social History Tobacco [...] Sig Dispensed Refills Start Date End Date meclizine (ANTIVERT) 12.5 Take 12.5 mg by [...] 0 10/04 (XOPENEX HFA) 45 mcg/Actuation inhaler ZESTRIL 5 mg tablet Take 5 mg by mouth 0 04/23/20 14 12/26/2015 Daily. clobetasol (TEMOVATE) 0.05 Apply topically 2 30 g 0 03/07/2015 % cream times daily. SA/SUN Syringe with Needle, Disp, With methotrexate 13 Syringe 1 03/07/2015 (TUBERCULIN SYRINGE) 1 mL injection. 27 x 1/2 Syrg methotrexate 25 mg/mL Inject 0.8 mLs into 5 vial 2 05/1506/29/2014 chemo injection the vein every 7 days. predniSONE (DELTASONE) 1 Take 1 tablet by [...] tablet 0 06/29/2013 12/26/2015 (HYDRODIURIL) 25 mg tablet mouth daily. INSULIN REGULAR, HUMAN Inject 0-10 Units 0 06/29/2014 (NOVOLIN R PENFILL INJ) as directed daily as needed. aspirin 325 mg tablet Take 81 mg [...] Visit Rheumatology Toño Rodriguez PA [facility] RHEUMATOLOGY [place], [place] [address] (Wo rk) documented as of this encounter Visit Diagnoses Not on filedocumented in this encounter Care Teams Knitting Machine Operator Relationship Specialty Start Date End Date Jennifer Silva APRN PCP - General 09/10/10 07/01/17 documented as of this encounter
--- OUTSIDE RECORDS SUMMARY | 2022-07-08 09:35 | XMS_ITS | Encounter Summary ---
:1945 Author Organization [facility] [place] [address] Care Team Providers Name Role Phone Jennifer Silva JAIRO Primary Care Provider Encounter Details Date Type Department Care Team Description 06/29/2015 External Results Neurology at [facility] Juan Pena MD [facility] [place] [address] NEUROLOGY DEPT. [phone] [place], [place] [address] (Wo rk) Social History Tobacco [...] Rheumatology Toño Rodriguez PA [facility] [address] T[place] [address] (Wo rk) documented as of this encounter Procedures Procedure Name Priority Date/Time Associated Diagnosis Comme nts EMG SCAN Routine 06/28/2015 documented in this encounter Results Scan Doc: EMG (06/28/2015) Narrative This result has an attachment that is no t available. Juan Pena MD MEDIA MGR SCAN EXT ORDR/RSLT documented in this encounter Visit Diagnoses Not on filedocumented in this encounter Care Teams Inspector Machine Cut Glass Relationship Specialty Start Date End Date Jennifer Silva APRN PCP - General 09/10/10 07/01/17 documented as of this encounter
--- OUTSIDE RECORDS SUMMARY | 2022-07-08 09:35 | XMS_ITS | Encounter Summary ---
:1945 Author Organization [facility] [place] [address] Care Team Providers Name Role Phone Jennifer Silva APRN Primary Care Provider Reason for Visit Reason Comments Medication Refill Encounter Details Date Type Department Care Team Description 10/28/2014 Refill Rheumatology at [facility] Alisha Heredia APRN [facility] [place] [address] RHEUMATOLOGY DEPT. [phone] [place], [place] [address] (Wo katelyn) Social History Tobacco [...] 02/26/2023 Office Visit Rheumatology Toño Rodriguez PA [facility] [address] [place], [place] [address] (Wo rk) documented as of this encounter Visit Diagnoses Not on filedocumented in this encounter Care Teams Shrimper Relationship Specialty Start Date End Date Jennifer Silva APRN PCP - General 09/10/10 07/01/17 documented as of this encounter
--- OUTSIDE RECORDS SUMMARY | 2022-07-08 09:35 | XMS_ITS | Encounter Summary ---
:1945 Author Organization [facility] [place] [address] Care Team Providers Name Role Phone LuceJennifer mckeon Kelsey GILL Primary Care Provider Reason for Visit Reason Onset Date Comments Other 05/22/2014 methotrexate Encounter Details Date Type Department Care Team Description 05/22/2014 Telephone Rheumatology at [facility] Brittany Spivey (methotrexate) [facility] [place] [address] Social History Tobacco Use Types Packs/Day Years Used Date Former Smoker 2 Quit: 07/19/19 79 Smokeless Tobacco: Never Used Alcohol Use Standard Drinks/Week Comments No 0 (1 standard drink = 0.6 oz pure alcoho l) Sex Assigned at Date Recorded Not on file documented as of this encounter Miscellaneous Notes Telephone Encounter - Brittany Spivey RN - 05/22/2014 9:57 AM EDT Francisca is calling because she is not sure if she is supposed to be taking the liquid methotrexate orally or as an injection. She is also concerned because she read in the paperwork that people with RA and psoriatic arthritis are dying who take this medication. After further discussion found out she is not sure why Salma would have changed her to injection, the oral methotrexate worked just fine for her.In the end Francisca would prefer to go back to taking the methotrexate pills she does not want to take the methotrexate injection. She has enough medication for this week, but will need a new rx sent to her pharmacy for the pills. documented in this encounter Plan of Treatment Upcoming Encounters Date Type Specialty Care Team Description 02/26/2023 Office Visit Rheumatology Toño Rodriguez PA [facility] RHEUMATOLOGY [place], [place] [address] (Wo rk) documented as of this encounter Visit Diagnoses Not on filedocumented in this encounter Care Teams Sheep Farm Manager Relationship Specialty Start Date End Date Jennifer Silva APRN PCP - General 09/10/10 07/01/17 documented as of this encounter
--- OUTSIDE RECORDS SUMMARY | 2022-07-08 09:35 | XMS_ITS | Encounter Summary ---
:1945 Author Organization [facility] [place] [address] Care Team Providers Name Role Phone Jennifer Silva APRN Primary Care Provider Reason for Visit Reason Comments Medication Refill Encounter Details Date Type Department Care Team Description 11/02/2014 Refill Rheumatology [place] [facility] Alisha Heredia APRN [facility] [place] [address] RHEUMATOLOGY DEPT. [phone] [place], [place] [address] (Wo katelyn) Social History Tobacco [...] PA [facility] [address] [place], [place] [address] (Wo rk) documented as of this encounter Visit Diagnoses Not on filedocumented in this encounter Care Teams Software Quality Analyst Relationship Specialty Start Date End Date Jennifer Silva APRN PCP - General 09/10/10 07/01/17 documented as of this encounter
--- OUTSIDE RECORDS SUMMARY | 2022-07-08 09:35 | XMS_ITS | Encounter Summary ---
:1945 Author Organization [facility] [place] [address] Care Team Providers Name Role Phone Terri Bowser MD Primary Care Provider Reason for Visit Reason Comments Medication Refill Encounter Details Date Type Department Care Team Description 02/02/2015 Refill Rheumatology at [facility] Alisha [place]redia [place] [address] RHEUMATOLOGY DEPT. [phone] [place], [place] [address] (Wo rk) Social History Tobacco [...] 02/26/2023 Office Visit Rheumatology Toño Rodriguez PA [facility] [address] [place], [place] [address] (Wo rk) documented as of this encounter Goals Goal Patient Goal Associated Recent Patient-Stated? Author Type Problems Progress DH Home Medication Patient No Dario'Errol moralez, Compliance and Facing Rachael Resendiz, Understanding Action Plan [facility] Note: Formatting of this note might be d ifferent from the original. Patient's goal is to decrease pain by 50 % over the next 6 months (current pain 7 out of 10, would like to get down to 3) documented as of this encounter Visit Diagnoses Not on filedocumented in this encounter Care Teams Stucco Mason Relationship Specialty Start Date End Date Terri Bowser MD PCP - General Family Medicine 07/02/17 [address] [place] [address] documented as of this encounter
--- OUTSIDE RECORDS SUMMARY | 2022-07-08 09:35 | XMS_ITS | Encounter Summary ---
:1945 Author Organization [facility] [place] [address] Care Team Providers Name Role Phone Jennifer Silva APRN Primary Care Provider Reason for Visit Reason Comments Medication Refill Encounter Details Date Type Department Care Team Description 02/01/2015 Refill Rheumatology at [facility] Alisha Heredia APRN [facility] [place] [address] RHEUMATOLOGY DEPT. [phone] [place], [place] [address] (Wo katelyn) Social History Tobacco [...] Visit Rheumatology Toño Rodriguez PA [facility] [address] [place], [place] [address] (Wo rk) documented as of this encounter Visit Diagnoses Not on filedocumented in this encounter Care Teams Clip Loading Machine Feeder Relationship Specialty Start Date End Date Jennifer Silva APRN PCP - General 09/10/10 07/01/17 documented as of this encounter
--- OUTSIDE RECORDS SUMMARY | 2022-07-08 09:35 | XMS_ITS | Encounter Summary ---
:1945 Author Organization [facility] [place] [address] Care Team Providers Name Role Phone Jennifer Silva APRN Primary Care Provider Encounter Details Date Type Department Care Team Description 03/07/2015 Follow-Up Rheumatology at [facility] Alisha Heredia, Psoriatic arthritis; [facility] PHOTOGRAPHIC PRINTER Encounter for long-term (current) use of other medications; [facility] High risk medication use; [place] [address] Trochanteric bursitis of right hip [phone] RHEUMATOLOGY DEP [place], [place] [address] Social History Tobacco Use Types Packs/Day Years Used Date Former Smoker 2 Quit: 07/19/19 79 Smokeless Tobacco: Never Used Alcohol Use Standard Drinks/Week Comments No 0 (1 standard drink = 0.6 oz pure alcoho l) Sex Assigned at Date Recorded Not on file documented as of this encounter Last Filed Vital Signs Vital Sign Reading Time Taken Comments Blood Pressure 160/69 03/07/2015 11:48 AM EDT Pulse 80 03/07/2015 11:48 AM EDT Temperature - - Respiratory Rate - - Oxygen Saturation - - Inhaled Oxygen Concentration - - Weight 85.7 kg (189 lb) 03/07/2015 11:48 AM EDT Height 157.5 cm (5' 2) 03/07/2015 11:48 AM EDT Body Mass Index 34.57 03/07/2015 11:48 AM EDT documented in this encounter Progress Notes Alisha Heredia, PHOTOGRAPHIC PRINTER - 03/07/2015 6:42 AM EDT Francisca Kong is a 69 y.o. female [...] 338.4 ??? Food intolerance 579.8 INTERVAL HISTORY: Last seen 06/2014. Stopped MTX in (AUG 2014). Reports developed SOB and sweating daily with use. After 7-10 days off MTX, symptoms resolved. Current steroid dose: Prednisone 5 mg. Feels like left ankle is sliding back and forth. Neck (followed by PT/holisitc) working with craniosacral therapy. Shoulders stiff and put one out loading wood. Steroid injection to left with benefit. Elbows and wrists -> pain, without swelling. Hands stiff, without swelling. Hips with stiffness and pain. (+) night time awakening. Knees: Stiffness without swellling. Ankles: Stiff without swelling. Back still stiff and sore without radicular symptoms Ongoing follow up with Dr. 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 Changed to vitamin D 1999 daily. Pneumonia this winter. Medrol dosepak for this with improvement in joints. Ongoing cardiac rehab twice weekly.Denies recurrent iinfection. 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 Reports no other changes in [...] SKIN: (-) Raynauds; (-) ulcers; (+) rash Current Outpatient Prescriptions on File Prior to Visit Medication Sig Dispense Refill ??? predniSONE (DELTASONE) 5 mg Tablet Take 1 tablet by mouth daily. 30 tablet 2 ??? predniSONE (DELTASONE) 1 mg Tablet TAKE ONE TABLET BY MOUTH EVERY DAY (WITH A 5MG TABLET FOR TOTAL DOSE 6MG) 30 tablet 2 ??? ergocalciferol (ERGOCALCIFEROL) 50,000 unit Capsule Take 1 capsule by mouth every 30 days. 3 capsule 3 ??? Insulin Lispro (HUMALOG KWIKPEN) Insulin Pen Inject 2-8 Units subcutaneously 3 times daily as needed. ??? ZESTRIL 5 mg tablet Daily. ??? clobetasol (TEMOVATE) 0.05 % cream Apply topically 2 times daily. SA/SUN 30 g 0 ??? Syringe with Needle, Disp, (TUBERCULIN SYRINGE) 1 mL 27 x 1/2 Syrg With methotrexate injection.13 Syringe 1 ??? meclizine (ANTIVERT) 12.5 mg tablet ??? Calcipotriene (DOVONEX) 0.005 % Soln Apply to affected area BID THU-THU-THU 60 mL 0 ??? folic acid (FOLVITE) 1 mg tablet Take 2 tablets by mouth daily. May need earlier refill. Dose increase. 180 tablet 3 ??? OXYcodone (ROXICODONE) 5 mg immediate release tablet Take 5 mg by mouth daily as needed. ??? hydrochlorothiazide (HYDRODIURIL) 25 mg tablet Take 1 tablet by mouth daily. 30 tablet ??? ascorbic acid (VITAMIN C) 1,000 mg [...] 40 mg, PO, Three times daily ??? CYANOCOBALAMIN, VITAMIN B-12, (VITAMIN B-12 ORAL) ??? fluticasone (FLOVENT HFA) 110 mcg/Actuation inhaler [...] Drug] All Antihistamines. PHYSICAL EXAMINATION: Filed Vitals: 03/07/15 1148 BP: 160/69 Pulse: 80 Height: 157.5 cm (5' 2) Weight: 85.73 kg (189 lb) Constitutional: Pleasant female sitting comfortably. HEENT: Normocephalic; (-) scleral injection, oral mucous membranes moist and intact. Neck: Neck supple; (-) lymphadenopathy (-) thyromegaly (-) parotid or submandibular gland enlargement Pulm: CTA; (-) wheezing, rales or rhonchi CV: RRR; (-) murmur or extra sounds; no CCE Neuro: Gait forward-bending; even and co-ordinated with use of a cane; speech clearly articulated Musculoskeletal: Muscle mass bilaterally symmetric. Joint exam: ?? Neck: ROM functional, limited in bilateral flexion/rotation (+) tender ?? Shoulders: Limited ROM in all planes (bilateral), (+) tender ?? Elbows: Functional ROM, (+) tender with extension; (-) extensor surface nodules or effusion ?? Wrists: Functional ROM; (-) effusion; (+) tenderness; Trace swelling (LEFT)(- ) erythema or warmth. ?? MCPs/PIPs: Functional ROM; (+) tender; (-) synovitis (trace swelling) R D 3 PIP and L D 4 PIP ?? (No) deformities; makes a near complete fist and claw ?? Hips: Functional ROM, (+) tender at right trochanteric bursae; independent seated -> standing/standing to seated ?? Knees: Functional ROM, (-)effusions, (+) tenderness; (+) crepitus. ?? Ankles/feet: Functional ROM; decreased internal/external rotation; (+) tender at left lateral malleoli; (-) MTP compression tenderness Skin: Warm, dry; (-) telangiectasias; (-) ulcers; (+) thin hyperkeratotic rash (LEFT elbow); (-) nail pitting;(-) bruising Labs: Reviewed. ASSESSMENT : Joint pain, psoriasis, osteoarthritis, osteoporosis; chronic steroid use. PLAN/RECOMMENDATIONS: ?? Continue prednisone 5 mg po daily with food. ?? CRC contact - study eligibilty for psoriatic arthritis. Immediately prior to the start of the procedure, I confirmed the patient's identity, intended procedure, including site/side, the correct patient positioning, site marked, and the availability of special equipment. Procedure Note: Site Left trochanteric bursa After informed verbal consent obtained, the area was prepped with an iodine solution. Ethyl chloridewas applied as a topical anesthetic. 0.75% marcaine (5 cc) and Depomedrol 40 mg were injected into site without complication. The patient was advised of potential adverse reactions including infection, hyperglycemia, and skin atrophy. The patient was advised to call the clinic immediately for fever, chills, sweats, or increased redness, warmth, pain or swelling over the injection site. ?? Vitamin D level -> PCP post modified supplement. ?? Ongoing calcium and vitamin D dietary intake and supplementation. ?? MSUS planned if no clinical trial eligibility. ?? Labs pending. ?? Further planing pending review and CRC response. documented in this encounter Miscellaneous Notes Addendum Note - Nora Roberts - 03/07/2015 1:50 PM EDT Addended by: NORA ROBERTS on: 03/07/2015 01:50 PM Modules accepted: Orders documented in this encounter Plan of Treatment Upcoming Encounters Date Type Specialty Care Team Description 02/26/2023 Office Visit Rheumatology Toño Rodriguez PA [facility] RHEUMATOLOGY CL, [place] [address] (Wo rk) documented as of this encounter Procedures Procedure Name Priority Date/Time Associated Comments Diagnosis HEMOGRAM Routine 03/07/2015 1:46 PM Psoriatic art hritis Results for this EDT Encounter for procedure are in long-term (current) the resu lts use of other section. medications High risk medication use DIFFERENTIAL, Routine 03/07/2015 1:46 PM Psoriatic art hritis Results for this AUTOMATED EDT Encounter for procedure are in long-term (current) the resu lts use of other section. medications High risk medication use CBC (WITH DIFF) Routine 03/07/2015 1:46 PM Psoriatic art hritis EDT Encounter for long-term (current) use of other medications High risk medication use CRP, CARDIAC RISK (HS Routine 03/07/2015 1:46 PM Psoriat ic arthritis Results for this CRP) EDT Encounter for procedure are in long-term (current) the resu lts use of other section. medications High risk medication use COMPREHENSIVE Routine 03/07/2015 1:46 PM Psoriatic art hritis Results for this METABOLIC PANEL EDT Encounter for procedure a re in (NON-FASTING) long-term (current) the res ults use of other section. medications High risk medication use documented in this encounter Results (ABNORMAL) Differential, Automated (03/07/2015 1:46 PM EDT) [facility] Method Time Signature Neutrophils % 79.0 % CERNER MILLENNIUM Neutr Abs (ANC) 8.38 (H) 1.50 - CERNER 6.30 MILLENNIUM x10(3)/mc L Lymphocytes % 17.0 % CERNER MILLENNIUM Lymphocytes Abs 1.8 1.0 - 3.6 CERNER x10(3)/mc MILLENNIUM L Monocytes % 3.2 % CERNER MILLENNIUM Monocyte Abs 0.3 0.2 - 1.0 CERNER x10(3)/mc MILLENNIUM L Eosinophils % 0.3 % CERNER MILLENNIUM Eosinophils Abs 0.0 0.0 - 0.5 CERNER x10(3)/mc MILLENNIUM L Basophils % 0.2 % CERNER MILLENNIUM Basophils Abs 0.0 0.0 - 0.2 CERNER x10(3)/mc MILLENNIUM L Immature Gran % 0.30 % CERNER MILLENNIUM Comment: Immature granulocytes(IG's)percentage an d absolute count will include metamyelocytes, myelocytes, and promyelo cytes. Blood smears from CBCs yielding IG's will be scanned manually for concor dance. If this scan disagrees with the automated IG or if promyelocytes are not ed, a manual differential will be performed. Amber Gran Abs 0.03 0.00 - 0.05 x10(3)/mcL CER NER MILLENNIUM Specimen Anatomical Collection Method Collection Time Receive d Time (Source) Location / / Volume Laterality Blood specimen 03/07/2015 1:46 PM 015 2:04 (specimen) EDT PM EDT Resulting Agency Comment Spec In Lab Rosalino George MD HEMATOLOGY ORDERABLES Performing Organization Address City/State/ZIP Code Phon e Number [place] [phone] CERNER MILLENNIUM (ABNORMAL) Hemogram (03/07/2015 1:46 PM EDT) P athologist Signature WBC 10.6 (H) 4.0 - 10.0 CERNER x10(3)/mcL MILLENNIUM RBC 4.45 3.93 - CERNER 5.22 MILLENNIUM x10(6)/mcL Hemoglobin 13.6 11.2 - CERNER 15.7 gm/dL MILLENNIUM Hematocrit 41.2 34.0 - CERNER 45.0 % MILLENNIUM MCV 92.6 79.0 - CERNER 94.0 fL MILLENNIUM MCH 30.6 26.6 - CERNER 32.2 pg MILLENNIUM MCHC 33.0 32.0 - CERNER 36.5 gm/dL [facility] Platelets 233 145 - 370 CERNER x10(3)/mcL MILLENNIUM RDWSD 44.3 35.0 - CERNER 46.0 fL [facility] RDWCV 13.2 10.9 - CERNER 14.4 % [facility] MPV 11.3 9.0 - 12.0 CERNER fL [facility] Specimen Anatomical Collection Method Collection Time Receive d Time (Source) Location / / Volume Laterality Blood specimen 03/07/2015 1:46 PM 015 2:04 (specimen) EDT PM EDT Resulting Agency Comment Spec In Lab Rosalino George MD HEMATOLOGY ORDERABLES Performing Organization Address City/State/ZIP Code Phon e Number [place] [phone] [facility] High Sensitivity CRP (03/07/2015 1:46 PM EDT) athologist Signature CRP High Sens 2.7 mg/L [facility] Comment: Interpretations: 1) For accurate cardiac risk [...] Location / / Volume Laterality Blood specimen 03/07/2015 1:46 PM 015 2:03 (specimen) EDT PM EDT Resulting Agency Comment Spec In Lab Rosalino George MD CHEMISTRY ORDERABLES Performing Organization Address City/State/[place] [address] CERNER MILLENNIUM (ABNORMAL) Comprehensive metabolic panel (non-fasting) (03/07/2015 1:46 PM EDT) athologist Signature Glucose Lvl 178 65 - 199 CERNER mg/dL MILLENNIUM Comment: Diabetes: >=200 mg/dL plus symp toms BUN 17 8 - 18 mg/dL CERNER MILLENNIUM Creatinine 0.80 0.70 - 1.20 mg/dL CERNER MILL ENNIUM Comment: Please note that the pediatric reference intervals supplied above were not validated at [facility]. Results from pediatri c patients should be interpreted in conjunction to the patient's age, height and muscle mass. Sodium 140 135 - 145 mmol/L CERNER DEVON NIUM Potassium 3.6 3.5 - 5.0 mmol/L CERNER DEVON NIUM Comment: Please note: ??Patients with WBC >100,00 0 may have falsely elevated Potassium levels. ??For accurate Potassium quantif ication in these patients send serum separator tube (gold top) for subsequent determinations. ??Contact the Clinical Chemistry Laboratory if there are any qu estions. Chloride 97 (L) 98 - 107 mmol/L CERNER MILLENN IUM CO2 28 22 - 31 mmol/L CERNER MILLENNI UM Anion Gap 15 5 - 15 mmol/L CERNER MILLENNIU M Calcium 9.2 8.5 - 10.5 mg/dL CERNER DEVON NIUM Total Protein 7.2 6.1 - 8.0 gm/dL CERNER MIL LENNIUM Albumin 4.4 3.2 - 5.2 gm/dL CERNER MILLENN IUM AST 31 (H) 0 - 30 unit/L CERNER MILLENNIU M ALT 34 (H) 0 - 30 unit/L CERNER MILLENNIU M Alk Phos 67 40 - 104 unit/L CERNER MILLENN IUM Total Bilirubin 0.4 0.2 - 1.3 mg/dL CERNER M ILLENNIUM Bili, Direct 0.1 0.0 - 0.3 mg/dL CERNER MILL ENNIUM Estimated GFR >60 >=60 SOURAV CHESTERRICKRigobertoSamuel Jerzy Comment: This estimated GFR (eGFR) value was [...] the following links into your internet browser. http://TellWise/DHnkdep http://TellWise/DHMCnkf Specimen Anatomical Collection Method Collection Time Receive d Time (Source) Location / / Volume Laterality Blood specimen 03/07/2015 1:46 PM 015 2:03 (specimen) EDT PM EDT Resulting Agency Comment Spec In Lab Rosalino George MD CHEMISTRY ORDERABLES Performing Organization Address City/State/ZIP Code Phon e Number [address] SOURAV ROSA documented in this encounter Visit Diagnoses Diagnosis Psoriatic arthritis Psoriatic arthropathy Encounter for long-term (current) use of other medications High risk medication use Encounter for long-term (current) use of other medications Trochanteric bursitis of right hip Enthesopathy of hip region documented in this encounter Care Teams Manager Membership Relationship Specialty Start Date End Date Jennifer Silva APRN PCP - General 09/10/10 07/01/17 documented as of this encounter
--- OUTSIDE RECORDS SUMMARY | 2022-07-08 09:35 | XMS_ITS | Encounter Summary ---
:1945 Author Organization [place] [address] Care Team Providers Name Role Phone Gregory, Jennifer Cole APRN Primary Care Provider Reason for Visit Reason Onset Date Comments Other 05/08/2015 DECLINED FOLLOW-UP Encounter Details Date Type Department Care Team Description 05/08/2015 Telephone Cardiology at [facility] Jeremy Keane, Other (DECLINED [facility] MD FOLLOW-UP) [place] [address] CARDIOLOGY DEPT. [place], [place] [address] (Wo rk) Social History Tobacco Use Types Packs/Day Years Used Date Former Smoker 2 Quit: 07/19/19 79 Smokeless Tobacco: Never Used Alcohol Use Standard Drinks/Week Comments No 0 (1 standard drink = 0.6 oz pure alcoho l) Sex Assigned at Date Recorded Not on file documented as of this encounter Miscellaneous Notes Telephone Encounter - Miroslava Momin - 05/08/2015 12:07 PM EDT Pt returned our call about setting up her overdue annual follow-up but has declined appt as she has a local Weather Anchor that she is now seeing. Reminder has been removed. documented in this encounter Plan of Treatment Upcoming Encounters Date Type Specialty Care Team Description 02/26/2023 Office Visit Rheumatology Toño Rodriguez PA [facility] [address] [place], [place] [address] (Wo rk) documented as of this encounter Visit Diagnoses Not on filedocumented in this encounter Care Teams Executive Pilot Relationship Specialty Start Date End Date Jennifer Silva APRN PCP - General 09/10/10 07/01/17 documented as of this encounter
--- OUTSIDE RECORDS SUMMARY | 2022-07-08 09:35 | XMS_ITS | Encounter Summary ---
:1945 Author Organization [facility] [place] [address] Care Team Providers Name Role Phone Jennifer Silva APRN Primary Care Provider Reason for Visit Reason Onset Date Comments Other 08/04/2014 symptoms Encounter Details Date Type Department Care Team Description 08/04/2014 Telephone Rheumatology at [facility] Brittany Spivey, Other (symptoms) [facility] [place] [address] Social History Tobacco Use Types Packs/Day Years Used Date Former Smoker 2 Quit: 07/19/19 77 Smokeless Tobacco: Never Used Alcohol Use Standard Drinks/Week Comments No 0 (1 standard drink = 0.6 oz pure alcoho l) Sex Assigned at Date Recorded Not on file documented as of this encounter Miscellaneous Notes Telephone Encounter - Brittany Spivey RN - 08/04/2014 3:30 PM EDT Francisca called back to say her pcp is on vacation and no one at the pcp's office knew what she should do. She is due to take methotrexate tomorrow. Told her to not take it tomorrow and call on Thursday with an update. Asked her if she is SOB now she said, yes. Told her if SOB worsens she needs to go to ER. 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 Explained that short story writer just wanted to reinforce those instructions. Francisca verbalized understanding of all directions and said she appreciated short story writer's help. Telephone Encounter - Brittany Spivey RN - 08/04/2014 3:14 PM EDT Francisca is calling because she has been experiencing diaphoresis and SOB. She is convinced this is related to her methotrexate. She says it has happened in the past. She says she saw her pcp last week and her pcp recommended she stay on 6 mg prednisone daily. Asked if she had contacted pcp about SOB today, she said, no because she saw her last week and pcp thought related to her asthma. Francisca thinks decreasing the methotrexate would help symptoms resolve. Asked her to please call her pcp today regarding SOB just to see what she thinks because Salma is out today and will not be able to answer her question until Thursday. Francisca agreed to do that. documented in this encounter Plan of Treatment Upcoming Encounters Date Type Specialty Care Team Description 02/26/2023 Office Visit Rheumatology Toño Rodriguez PA [facility] [address] [place], [place] [address] (Wo rk) documented as of this encounter Visit Diagnoses Not on filedocumented in this encounter Care Teams Corsetier Relationship Specialty Start Date End Date Jennifer Silva APRN PCP - General 09/10/10 07/01/17 documented as of this encounter
--- OUTSIDE RECORDS SUMMARY | 2022-07-08 09:35 | XMS_ITS | Encounter Summary ---
:1945 Author Organization [facility] [address] Care Team Providers Name Role Phone Jennifer Silva Kelsey GILL Primary Care Provider Reason for Visit Reason Comments Macular Degeneration 8 months AMD OU (endstage OD ) - Pt is noticing new floaters OU. Present x 3 weeks. Pt here f or dilated exam with OCT OS. Encounter Details Date Type Department Care Team Description 06/29/2014 Follow-Up Ophthalmology at [facility] Ella Dominguez AMD (age related [facility] Jade Burleson MD macular degeneration) [place] [address] [facility] (Primary Dx) [phone] DR OPHTHALMOLOGY DE PT. 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 Plan: Recheck in 6 months and OCT OS then. documented in this encounter Plan of Treatment Upcoming Encounters Date Type Specialty Care Team Description 02/26/2023 Office Visit Rheumatology Toño Rodriguez PA [facility] DR RHEUMATOLOGY [place], [place] [address] (Wo rk) documented as of this encounter Procedures Procedure Name Priority Date/Time Associated Diagnosis Comme nts OCT RETINA - OS - LEFT Routine 06/29/2014 2:51 PM EDT AMD (age related EYE macular degeneration) documented in this encounter Results OCT [id number] EYE (06/29/2014 2:51 PM EDT) Anatomical Region Laterality Modality Other Specimen (Source) Anatomical Location Collection Method / Collectio n Time Received Time / Laterality Volume Ella Mcduffie MD OPHTHALMOLOGY SERVICES ORDER KEKE documented in this encounter Visit Diagnoses Diagnosis AMD (age related macular degeneration) - Primary Macular degeneration (senile) of retina, unspecified documented in this encounter Care Teams Public Health Registrar Relationship Specialty Start Date End Date Jennifer Silva APRN PCP - General 09/10/10 07/01/17 documented as of this encounter
--- OUTSIDE RECORDS SUMMARY | 2022-07-08 09:35 | XMS_ITS | Encounter Summary ---
:1945 Author Organization [facility] [place] [address] Care Team Providers Name Role Phone Jennifer Silva APRN Primary Care Provider Reason for Visit Reason Comments Medication Refill Encounter Details Date Type Department Care Team Description 10/07/2014 Refill Rheumatology at [facility] Alisha Heredia APRN [facility] [place] [address] RHEUMATOLOGY DEPT. [phone] [place], [place] [address] (Wo katelyn) Social History Tobacco [...] 02/26/2023 Office Visit Rheumatology Toño Rodriguez PA [facility] [address] [place], [place] [address] (Wo rk) documented as of this encounter Visit Diagnoses Not on filedocumented in this encounter Care Teams Four Slide Machine Operator Relationship Specialty Start Date End Date Jennifer Silva APRN PCP - General 09/10/10 07/01/17 documented as of this encounter
--- OUTSIDE RECORDS SUMMARY | 2022-07-08 09:35 | XMS_ITS | Encounter Summary ---
:1945 Author Organization [facility] [place] [address] Care Team Providers Name Role Phone [place], Jennifer Cole APRN Primary Care Provider Encounter Details Date Type Department Care Team Description 05/15/2014 Hospital Encounter Laboratory Rosalino George [facility] [address] [place] RHEUMATOLOGY DEP T. [id number] [place] [address] [phone] (Wo rk) Social History Tobacco Use Types [...] [facility] [address], [place] [address] (Wo rk) documented as of this encounter Visit Diagnoses Not on filedocumented in this encounter Care Teams Candy Decorator Relationship Specialty Start Date End Date Jennifer Silva APRN PCP - General 09/10/10 07/01/17 documented as of this encounter
--- OUTSIDE RECORDS SUMMARY | 2022-07-08 09:35 | XMS_ITS | Encounter Summary ---
:1945 Author Organization [facility] [place] [address] Care Team Providers Name Role Phone Jennifer Silva APRN Primary Care Provider Reason for Visit Reason Onset Date Comments Questions 07/11/2014 Encounter Details Date Type Department Care Team Description 07/11/2014 Telephone Ophthalmology at [facility] [place] [address] Social History Tobacco Use Types Packs/Day Years Used Date Former Smoker 2 Quit: 07/19/19 77 Smokeless Tobacco: Never Used Alcohol Use Standard Drinks/Week Comments No 0 (1 standard drink = 0.6 oz pure alcoho l) Sex Assigned at Date Recorded Not on file documented as of this encounter Miscellaneous Notes Telephone Encounter - Jennifer Corona, COT - 07/12/2014 8:17 AM EDT Ella Mcduffie MD Physician 06/29/2014 2:52 PM Signed 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 OS exudative in past, but not recently. 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 Plan: Recheck in 6 months and OCT OS then. Patient called for more information regarding black spot found on scan. Relayed above note to patient. Telephone Encounter - Aleena Walters - 07/11/2014 3:32 PM EDT Pt called stating she saw Dr. Mcduffie on 06/29 and was told that there was something in her scan fromthat visit and stated she did not need to come back for 4 months but pt is worried, pt would like tospeak with someone please call at [phone] documented in this encounter Plan of Treatment Upcoming Encounters Date Type Specialty Care Team Description 02/26/2023 Office Visit Rheumatology Toño Rodriguez PA [facility] RHEUMATOLOGY [place], [place] [address] (Wo rk) documented as of this encounter Visit Diagnoses Not on filedocumented in this encounter Care Teams Team Lead Relationship Specialty Start Date End Date Jennifer Silva APRN PCP - General 09/10/10 07/01/17 documented as of this encounter
--- OUTSIDE RECORDS SUMMARY | 2022-07-08 09:35 | XMS_ITS | Encounter Summary ---
:1945 Author Organization [facility] Address [address] [place] [address] Care Team Providers Name Role Phone [place], Jennifer Cole APRN Primary Care Provider Reason for Visit Reason Comments Diabetes Encounter Details Date Type Department Care Team Description 03/07/2015 Office Visit Endocrinology at [facility] Edna Foley, Type II or [facility] [employer] SALES ASSISTANT unspecified type Drive [facility] [place] [address] without mention of [phone] ENDOCRINOLOGY complication, not DEPT. stated as [place], [place] [address] uncontrolled Social History Tobacco Use Types Packs/Day Years Used Date Former Smoker 2 Quit: 07/19/19 77 Smokeless Tobacco: Never Used Alcohol Use Standard Drinks/Week Comments No 0 (1 standard drink = 0.6 oz pure alcoho l) Sex Assigned at Date Recorded Not on file documented as of this encounter Patient Instructions Patient InstructionsEdna Mortensen APRN - 03/07/2015 1:33 PM EDT Take humalog within 30 min after the meal, closer to the meal is better Add victoza daily Start at lowest dose for the 1st week, then middle dose then up to 1.8mg daily Please bring meter to appointments Ok to check glucose before meals to try to get glucose between 100-130 as much as possible documented in this encounter Progress Notes Edna Mortensen APRN - 03/07/2015 5:36 PM EDT DATE OF VISIT: 03/07/2015 REASON FOR VISIT: Followup type 2 DM, in fair/poor control. BRIEF HISTORY: Had appointment earlier this afternoon in rheumatology. DIABETES REGIMEN: Humalog 2 to 4 units after meals, sometimes does injections one to two hours after the meals two to three times a day. States when she has tried to take long acting Insulin in the past, glucose levels get too low. REVIEW OF SYSTEMS: Depression and Mood: Discusses some very high stress at home and in her town. Eyes: Followed by Dr. Mcduffie for macular degeneration. No recent headaches or chest pain or shortness of breath. No recent GI symptoms. Appetite is okay. Sleep pattern varies. Extremities: Refer to office visit note by Alisha Heredia from rheumatology followup visit. PHYSICAL EXAMINATION: Appearance: Ambulates with assistance of a cane. She is overweight, 189 pounds. Blood pressure 160/69. Eyes: No retinopathy with green light exam. Neck: No thyromegaly or lymphadenopathy. Heart: Regular rate and rhythm. No murmurs. Lungs are clear to auscultation. Feet: Skin is normal. Pulses are normal. Neuro: Normal sensation to 10 g of pressure. Has podiatry care with Dr Garcia. Hemoglobin A1c 8.3%. IMPRESSION AND PLAN: Diabetes mellitus type 2, in fair/poor control. Advised patient to try to take the Humalog within half an hour after eating the meal. Also, patient desires weight loss. Will add Victoza. Start at lowest dose 0.6 mg daily, then in one week, increase up to 1.2 mg daily and if no GI side effects or other side effects, increase to 1.8 mg daily. The patient has several allergies to several medications. Prescription sent to her pharmacy. Advised okay to check glucose levels three times a day before meals to try to keep them between 90 and 130 before meals as much as possible. This was a 31-minute office visit with 30 minutes spent counseling [id number] with the patient in the management of glucose levels, adding Victoza to her regimen, teaching Victoza pen use, gave patient copy of her hemoglobin A1c result. Return to office in three to six months when she has a followup appointment scheduled in rheumatology. Will check hemoglobin A1c. Recent Results (from the past 72 hour(s)) HEMOGLOBIN A1C Result Value Ref Range Hemoglobin A1C 8.3 (*) 4.3 - 5.6 % Est Avg Gluc See note HDL/CHOL PROFILE Result Value Ref Range Chol, Total 220 (*) <=199 mg/dL HDL 81 >=40 mg/dL Chol/HDL Ratio 2.7 LDL CHOLESTEROL, DIRECT Result Value Ref Range LDL Chol Direct 110 (*) <=99 mg/dL MICROALBUMIN, URINE, RANDOM Result Value Ref Range U Creatinine 74 U Ran Malb Conc 11.6 U Ran Malb Calc 16 COMPREHENSIVE METABOLIC PANEL (NON-FASTING) Result Value Ref Range Glucose Lvl 178 65 - 199 mg/dL BUN 17 8 - 18 mg/dL Creatinine 0.80 0.70 - 1.20 mg/dL Sodium 140 135 - 145 mmol/L Potassium 3.6 3.5 - 5.0 mmol/L Chloride 97 (*) 98 - 107 mmol/L CO2 28 22 - 31 mmol/L Anion Gap 15 5 - 15 mmol/L Calcium 9.2 8.5 - 10.5 mg/dL Total Protein 7.2 6.1 - 8.0 gm/dL Albumin 4.4 3.2 - 5.2 gm/dL AST 31 (*) 0 - 30 unit/L ALT 34 (*) 0 - 30 unit/L Alk Phos 67 40 - 104 unit/L Total Bilirubin 0.4 0.2 - 1.3 mg/dL Bili, Direct 0.1 0.0 - 0.3 mg/dL Estimated GFR >60 >=60 HIGH SENSITIVITY CRP Result Value Ref Range CRP High Sens 2.7 HEMOGRAM Result Value Ref Range WBC 10.6 (*) 4.0 - 10.0 x10(3)/mcL RBC 4.45 3.93 - 5.22 x10(6)/mcL Hemoglobin 13.6 11.2 - 15.7 gm/dL Hematocrit 41.2 34.0 - 45.0 % MCV 92.6 79.0 - 94.0 fL MCH 30.6 26.6 - 32.2 pg MCHC 33.0 32.0 - 36.5 gm/dL Platelets 233 145 - 370 x10(3)/mcL RDWSD 44.3 35.0 - 46.0 fL RDWCV 13.2 10.9 - 14.4 % MPV 11.3 9.0 - 12.0 fL DIFFERENTIAL, AUTOMATED Result Value Ref Range Neutrophils % 79.0 Neutr Abs (ANC) 8.38 (*) 1.50 - 6.30 x10(3)/mcL Lymphocytes % 17.0 Lymphocytes Abs 1.8 1.0 - 3.6 x10(3)/mcL Monocytes % 3.2 Monocyte Abs 0.3 0.2 - 1.0 x10(3)/mcL Eosinophils % 0.3 Eosinophils Abs 0.0 0.0 - 0.5 x10(3)/mcL Basophils % 0.2 Basophils Abs 0.0 0.0 - 0.2 x10(3)/mcL Immature Gran % 0.30 Amber Gran Abs 0.03 0.00 - 0.05 x10(3)/mcL documented in this encounter Plan of Treatment Upcoming Encounters Date Type Specialty Care Team Description 02/26/2023 Office Visit Rheumatology Toño Rodriguez PA [facility] ER DR TAM[place], [place] [address] (Wo rk) documented as of this encounter Procedures Procedure Name Priority Date/Time Associated Diagnosis Comme nts U ALBUMIN/CRE RATIO Routine 03/07/2015 11:53 Type II or Resu lts for this AM EDT unspecified type procedure a re in diabetes mellitus the result s without mention of section. complication, not stated as uncontrolled LDL CHOLESTEROL, Routine 03/07/2015 11:35 Type II or Results for this DIRECT AM EDT unspecified type procedure a re in diabetes mellitus the result s without mention of section. complication, not stated as uncontrolled HDL/CHOL PROFILE Routine 03/07/2015 11:35 Type II or Results for this AM EDT unspecified type procedure a re in diabetes mellitus the result s without mention of section. complication, not stated as uncontrolled HEMOGLOBIN A1C Routine 03/07/2015 11:35 Type II or Results f or this AM EDT unspecified type procedure a re in diabetes mellitus the result s without mention of section. complication, not stated as uncontrolled documented in this encounter Results Microalbumin, urine, random (03/07/2015 11:53 AM EDT) P athologist Signature U Creatinine 74 mg/dL CERNER MILLENNIUM U Albumin Conc, 11.6 mg/L CERNER Random MILLENNIUM Alb/Cr Ratio, 16 mcg/mg Cr CERNER Random MILLENNIUM Comment: Reference Range* Random collection (mcg/mg creatinine) Normal ?<30 Microalbuminuria ?? 30 - 300 Clinical Albuminuria ?? >300 *[place] Diabetes Association. Diabetic Nephropathy. Diabetes Care 1997;(Suppl 1):S24-S27 Exercise within 24 hour, infection, fe abhay, CHF, marked hyperglycemia, and marked hypertension may elevate urinary albumin excretion over baseline values. Specimen Anatomical Collection Method Collection Time Receive d Time (Source) Location / / Volume Laterality Urine specimen 03/07/2015 11:53 5 (specimen) AM EDT 12:01 PM EDT Resulting Agency Comment Spec In Lab Andrés Mary MD URINE ORDERABLES Performing Organization Address City/State/ZIP Code Phon e Number [place] [phone] [facility] (ABNORMAL) LDL Cholesterol, Direct (03/07/2015 11:35 AM EDT) P athologist Signature LDL Chol 110 (H) <=99 mg/dL CERNER Direct MILLENNIUM Comment: The National Cholesterol Education Progr am (NCEP) has set the following guidelines for LDL Cholesterol: Reference range: ?? Optimal: ?<100 mg/dL ?? Near Optimal/Above Optimal: ?? 100-1 29 mg/dL ?? Borderline high: ?130-159 mg/dL ?? High: ? 160-189 mg/dL ?? Very high: ?>gu=636 mg/dL LAXMI 2001: 285(19):9363-5944 Specimen Anatomical Collection Method Collection Time Receive d Time (Source) Location / / Volume Laterality Blood specimen 03/07/2015 11:35 5 (specimen) AM EDT 11:49 AM EDT Resulting Agency Comment Spec In Lab Andrés Mary MD CHEMISTRY ORDERABLES Performing Organization Address [facility] [place] [address] CERNER MILLENNIUM (ABNORMAL) HDL/Cholesterol Profile (03/07/2015 11:35 AM EDT) P athologist Signature Chol, Total 220 (H) <=199 CERNER mg/dL MILLENNIUM Comment: Recommendations of the NCEP Adult Treatm ent Panel for the following risk cutoff thresholds for the [place] populatio n: Desirable: <200 mg/dL Borderline High: 200-239 mg/dL High: > or = 240 mg/dL HDL 81 >=40 mg/dL CERNER MILLENNIUM Comment: Reference range: ??Low HDL: ?? < 40 mg/dL ??Normal: ?40-60 mg/dL ??Desirable: > 60 mg/dL LAXMI 2001; 285(19):8151-9611 Chol/HDL Ratio 2.7 ratio CERNER MILLENNI UM Comment: A Cholesterol to HDL ratio below 4:1 is desirable. ??Studies suggest that increased CAD risk occurs at ratios abov e 5 for females and above 6 for men. ? [place] Heart Association ??(htt p://www.americanheart.org) ? Lurdes Int Med, 1994; 121:641 ? AM J Med, 1998; 105(1A):48S Specimen Anatomical Collection Method Collection Time Receive d Time (Source) Location / / Volume Laterality Blood specimen 03/07/2015 11:35 5 (specimen) AM EDT 11:49 AM EDT Resulting Agency Comment Spec In Lab Andrés Mary MD CHEMISTRY ORDERABLES Performing Organization Address City/[facility] Phon e Number [place] [address] SOURAV VASQUESIUM (ABNORMAL) Hemoglobin A1c (03/07/2015 11:35 AM EDT) Analysis Performed At [facility] Time Signature Hemoglobin A1C 8.3 (H) 4.3 - 5.6 CERNER % MILLENNIUM Comment: Reference Range: 4.3 - 5.6% 5.7 - 6.4% - Increased Risk of Developin g Diabetes Mellitus >= 6.5% - Consistent with diagnosis of D iabetes Mellitus In the absence of hyperglycemia (i.e. pl asma glucose > 200 mg/dL) or classic symptoms of hyperglycemia a repeat measu rement of HbA1c should be performed on a separate sample to confirm the diagnos is. Diagnosis and Classification of Diabetes Mellitus, Diabetes Care 2013; 36: Suppl. 1, S67-10 Est Avg Gluc See note mg/dL [facility] Comment: Estimated Average Glucose not appropriat e for patients over 70 years of age. eAG equivalents for HbA1c percentages: HbA1c(%) ?eAG(mg/dL) 6.0 ?126 6.5 ?140 7.0 ?154 7.5 ?169 8.0 ?183 8.5 ?197 9.0 ?212 9.5 ?226 10.0 ? 240 Limitations: The eAG calculation has not been validated on women, individuals below 18 years old and above 70 years old, and individuals with hemoglobinopathies. Additional resources are available on ADA website: http://Boats.com/DHMCadacalc Jose Miguel BRAXTON, Moraima J, Ximena R, et al. ??Tr anslating the A1C assay into estimated average glucose values. ??Diabetes Care 2008:31(8):0980-3673. Specimen Anatomical Collection Method Collection Time Receive d Time (Source) Location / / Volume Laterality Blood specimen 03/07/2015 11:35 5 (specimen) AM EDT 11:49 AM EDT Resulting Agency Comment Spec In Lab Andrés Mary MD CHEMISTRY ORDERABLES Performing Organization Address City/State/ZIP Code Phon e Number [address] LABORATORY [facility] documented in this encounter Visit Diagnoses Diagnosis Type II or unspecified type diabetes kate litus without mention of complication, not stated as uncontrolled documented in this encounter Care Teams Campaign Associate Relationship Specialty Start Date End Date Jennifer Silva APRN PCP - General 09/10/10 07/01/17 documented as of this encounter
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
--- OUTSIDE RECORDS SUMMARY | 2022-07-08 09:35 | XMS_ITS | Encounter Summary ---
:1945 Author Organization [facility] [place] [address] Care Team Providers Name Role Phone Jennifer Silva JAIRO Primary Care Provider Reason for Visit Reason Onset Date Comments Other 05/25/2014 methotrexate Encounter Details Date Type Department Care Team Description 05/25/2014 Telephone Rheumatology at [facility] Brittany Spivey Other (methotrexate) [facility] [place] [address] Social History Tobacco Use Types Packs/Day Years Used Date Former Smoker 2 Quit: 07/19/19 77 Smokeless Tobacco: Never Used Alcohol Use Standard Drinks/Week Comments No 0 (1 standard drink = 0.6 oz pure alcoho l) Sex Assigned at Date Recorded Not on file documented as of this encounter Miscellaneous Notes Telephone Encounter - Brittany Spivey RN - 05/29/2014 3:38 PM EDT Called Francisca and left message that Salma would like to still see her on 06/29/14. Asked her to call back if she has any other questions. Telephone Encounter - Brittany Spivey RN - 05/29/2014 1:38 PM EDT Francisca called back today before typewriter ribbon winder could respond to message from 05/26/14 that she is not going to take the injectable methotrexate because she is so allergic to bases of injectables. Disability Attorney told her that is a ly decision since she has had so much indecision and anxiety over the change. She says she appreciates all the time typewriter ribbon winder took discussing issue with her. She wants to know if her appointment with Salma should be pushed out further, since she is not going to be starting the injectable methotrexate and will be continuing on a dose of oral methotrexate she has been taking all along. Told her message will be sent to Salma to see when she would like to see Francisca back. Telephone Encounter - Brittany Spivey RN - 05/26/2014 3:27 PM EDT Francisca called back and left message that she spoke to an old pharmacist friend of hers, who told her she was concerned about her taking injectable methotrexate because she is apparently highly allergicto the base of all injectables. This pharmacist told her she would need to get all of her shots as a series of three. Telephone Encounter - Brittany Spivey RN - 05/26/2014 9:01 AM EDT To attempt to increase the potency -> indication for switch in administration route. Check that solution is clear. ie no precipitate. It is yellow - may be with or without preservative and pharmacy will advise regarding storage pending type. Recommend injection to enhance absorption. She is alreadytolerating medication; should have no AE with aletered route. Called Francisca and left message relaying Salma's response above. Asked her to call back if she has further questions. Telephone Encounter - Brittany Spivey RN - 05/25/2014 8:48 AM EDT Francisca called and left message that she may want to go ahead with the injectable methotrexate. She says she still has a question on something Salma said about the liquid being yellow, If it is ingestible or injectable. Called Francisca back and left message that her questions will be forwarded to Salma. documented in this encounter Plan of Treatment Upcoming Encounters Date Type Specialty Care Team Description 02/26/2023 Office Visit Rheumatology Toño Rodriguez PA [facility] ER RHEUMATOLOGY [place], [place] [address] (Wo rk) documented as of this encounter Visit Diagnoses Not on filedocumented in this encounter Care Teams Picking Machine Operator Relationship Specialty Start Date End Date Jennifer Silva APRN PCP - General 09/10/10 07/01/17 documented as of this encounter
--- OUTSIDE RECORDS SUMMARY | 2022-07-08 09:35 | XMS_ITS | Encounter Summary ---
:1945 Author Organization [facility] [place] [address] Care Team Providers Name Role Phone Jennifer Silva APRN Primary Care Provider Reason for Visit Reason Comments Medication Refill Encounter Details Date Type Department Care Team Description 07/30/2014 Refill Rheumatology at [facility] Alisha Heredia [place] [address] RHEUMATOLOGY DEPT. [phone], [place] [address] (Wo katelyn) Social History Tobacco [...] 02/26/2023 Office Visit Rheumatology Toño Rodriguez PA [facility] [address] [place], [place] [address] (Wo rk) documented as of this encounter Visit Diagnoses Not on filedocumented in this encounter Care Teams Photographic Laboratory Technician Relationship Specialty Start Date End Date Jennifer Silva APRN PCP - General 09/10/10 07/01/17 documented as of this encounter
--- OUTSIDE RECORDS SUMMARY | 2022-07-08 09:35 | XMS_ITS | Encounter Summary ---
:1945 Author Organization [place] [address] Care Team Providers Name Role Phone Bullitt, Jennifer Cole APRN Primary Care Provider Reason for Visit Reason Onset Date Comments Other 08/21/2014 question Encounter Details Date Type Department Care Team Description 08/21/2014 Telephone Rheumatology at [facility] Brittany Spivey, Other (question) [facility] [place] [address] Social History Tobacco Use Types Packs/Day Years Used Date Former Smoker 2 Quit: 07/19/19 79 Smokeless Tobacco: Never Used Alcohol Use Standard Drinks/Week Comments No 0 (1 standard drink = 0.6 oz pure alcoho l) Sex Assigned at Date Recorded Not on file documented as of this encounter Miscellaneous Notes Telephone Encounter - Brittany Spivey RN - 08/21/2014 2:11 PM EST Lidocaine [id number] [employer] Called Francisca and relayed lidocaine information to her. Told her she does not have to take folic acidwhile off methotrexate, but asked her to resume if pharmacist is able to get a different version of methotrexate. She says she will not restart methotrexate without consulting with us first. Telephone Encounter - Brittany Spivey RN - 08/21/2014 1:36 PM EST Francisca called and left message that her pharmacist is investigating the methotrexate she received from them. Apparently it came from [facility] and he is thinking it may be that particular brand they were unable to tolerate. She is hoping he will be able to get her a different brand, that she might tolerate better. She also reports she pulled a muscle in her shoulder and is going to see her pcp for a cortisone injection. She would like to know what lidocaine brand that Salma uses here because she is highly allergic to many things. She also wants to know if she should continue folic acid if she is not taking methotrexate. documented in this encounter Plan of Treatment Upcoming Encounters Date Type Specialty Care Team Description 02/26/2023 Office Visit Rheumatology Toño Rodriguez PA [facility] RHEUMATOLOGY [place], [place] [address] (Wo rk) documented as of this encounter Visit Diagnoses Not on filedocumented in this encounter Care Teams District Resource Officer Relationship Specialty Start Date End Date Jennifer Silva APRN PCP - General 09/10/10 07/01/17 documented as of this encounter
--- OUTSIDE RECORDS SUMMARY | 2022-07-08 09:35 | XMS_ITS | Encounter Summary ---
:1945 Author Organization [facility] Address [facility] [address] [place] [address] Care Team Providers Name Role Phone Ricardo Jennifer Cole APRN Primary Care Provider Reason for Visit Reason Onset Date Comments Other 09/20/2013 cx appt Encounter Details Date Type Department Care Team Description 09/20/2013 Telephone Rheumatology at [facility] Brittany Spivey, Other (cx appt) [facility] [place] [address] Social History Tobacco Use Types Packs/Day Years Used Date Former Smoker 2 Quit: 07/19/19 77 Smokeless Tobacco: Never Used Alcohol Use Standard Drinks/Week Comments No 0 (1 standard drink = 0.6 oz pure alcoho l) Sex Assigned at Date Recorded Not on file documented as of this encounter Miscellaneous Notes Telephone Encounter - Brittany Spivey RN - 09/20/2013 10:12 AM EST Francisca called and left message cancelling her appt for today because the weather was too bad for her to drive in (too foggy). She wants Salma to know she is doing ok. She is taking between 6.5 and 7 mg prednisone daily. She has some discomfort in her shoulders and hips, but not bad. She also has been getting sporadic boils that come and go. She treats them with Bactroban. documented in this encounter Plan of Treatment Upcoming Encounters Date Type Specialty Care Team Description 02/26/2023 Office Visit Rheumatology Toño Rodriguez PA [facility] RHEUMATOLOGY [place], [place] [address] (Wo rk) documented as of this encounter Visit Diagnoses Not on filedocumented in this encounter Care Teams Compensation And Benefits Advisor Relationship Specialty Start Date End Date Jennifer Silva APRN PCP - General 09/10/10 07/01/17 documented as of this encounter
--- OUTSIDE RECORDS SUMMARY | 2022-07-08 09:35 | XMS_ITS | Encounter Summary ---
:1945 Author Organization [facility] [place] [address] Care Team Providers Name Role Phone RockbridgeJennifer mckeon Kelsey GILL Primary Care Provider Reason for Visit Reason Onset Date Comments Other 02/23/2014 potassium Encounter Details Date Type Department Care Team Description 02/23/2014 Telephone Rheumatology at [facility] Brittany Spivey, Jo (potassium) [facility] [place] [address] Social History Tobacco Use Types Packs/Day Years Used Date Former Smoker 2 Quit: 07/19/19 77 Smokeless Tobacco: Never Used Alcohol Use Standard Drinks/Week Comments No 0 (1 standard drink = 0.6 oz pure alcoho l) Sex Assigned at Date Recorded Not on file documented as of this encounter Miscellaneous Notes Telephone Encounter - Brittany Spivey RN - 02/24/2014 11:55 AM EDT Francisca called back to discuss how to get more potassium in her diet. Gave her options for potassium rich foods and checking multivitamins for one with a higher dose of potassium or using an OTC potassium supplement. She verbalized understanding of all information. Telephone Encounter - Brittany Spivey RN - 02/23/2014 2:27 PM EDT Called Francisca and left message that her potassium is a little low. Called to see if she is taking a potassium supplement or can increase her intake by eating more potassium rich foods. Told her letter with results will be sent to her and asked her to call back if she has more questions. documented in this encounter Plan of Treatment Upcoming Encounters Date Type Specialty Care Team Description 02/26/2023 Office Visit Rheumatology Toño Rodriguez PA [facility] RHEUMATOLOGY [place], [place] [address] (Wo rk) documented as of this encounter Visit Diagnoses Not on filedocumented in this encounter Care Teams Loom Changer Relationship Specialty Start Date End Date Jennifer Silva APRN PCP - General 09/10/10 07/01/17 documented as of this encounter
--- OUTSIDE RECORDS SUMMARY | 2022-07-08 09:35 | XMS_ITS | Encounter Summary ---
:1945 Author Organization [place] [address] Care Team Providers Name Role Phone Jennifer Silva APRN Primary Care Provider Reason for Visit Reason Comments Psoriatic Arthropathy Encounter Details Date Type Department Care Team Description 05/15/2014 [place] [facility] [place]isha Heredia, Psoriatic arthritis; [facility] INFECTION PREVENTIONIST Rash; Drive [facility] Encounter for long-term (cur rent) use of other medications; [place] [address] DR Osteoporosis; [phone] RHEUMATOLOGY DEP T. High risk medication use; [place], [place] [address] Joint pain; [phone] Immunization co unseling (Work) Social History Tobacco Use Types Packs/Day Years Used Date Former Smoker 2 Quit: 07/19/19 77 Smokeless Tobacco: Never Used Alcohol Use Standard Drinks/Week Comments No 0 (1 standard drink = 0.6 oz pure alcoho l) Sex Assigned at Date Recorded Not on file documented as of this encounter Last Filed Vital Signs Vital Sign Reading Time Taken Comments Blood Pressure 120/66 05/15/2014 8:41 AM EDT Pulse 67 05/15/2014 8:41 AM EDT Temperature 36.7 ??C (98.1 ??F) 05/15/2014 8:41 AM EDT Respiratory Rate - - Oxygen Saturation 97% 05/15/2014 8:41 AM EDT Inhaled Oxygen Concentration - - Weight 84.4 kg (186 lb) 05/15/2014 8:41 AM EDT Height 157.5 cm (5' 2) 05/15/2014 8:41 AM EDT Body Mass Index 34.02 05/15/2014 8:41 AM EDT documented in this encounter Progress Notes Alisha Heredia, INFECTION PREVENTIONIST - 05/15/2014 9:07 AM EDT Images from the original note [...] as follows: Updates in BOLD italics. ?? Planned taper Prednisone Was doing OK. Then developed pine allergies. Currently at 6 mg. Has noted increased joint pain, stiffness, without swelling affecting shoulders, elbows, wrists, hips, knees and ankles. Continues acetaminophen 1000 mg po BID, oxycodone at bedtime. Advised not ot taper further - concern for recurrence PMR. ?? Ongoing calcium and vitamin D dietary intake and supplementation. Ongoing. ?? Continue methotrexate 20 mg po weekly and folic acid to 2 mg po daily. Ongoing without interruption or AE ?? LABs requested - further planning - pending review. No action. ?? Precautions associated with DMARD - monitor for signs of infection. Ongoing. (+) psoriasis rash at both elbows. Using topical with benefit. Intermittent itchy rash right upper back. (-) culture -> NO ZOSTER after sample obtained by PCP. ? Able ot have ZOSTER vaccine. Reportsdeclined vaccine by pharmacy secondary to MTX. Ongoing follow up with Dr. 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 Sees Dr. Keane annually for 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 disease s/p single vessel stent. Trying to remain active. Denies recurrent iinfection. 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 [...] Dispense Refill ??? predniSONE (DELTASONE) 1 mg tablet Take 1 tablet by mouth daily. Take with 1 5 mg tablet for a 6mg daily dose 30 tablet 2 ??? predniSONE (DELTASONE) 5 mg tablet Take 1 tablet by mouth daily. Take with 1 1 mg tablet for a 6mg daily dose. 30 tablet 2 ??? methotrexate 2.5 mg tablet Take 8 tablets by mouth once a week. 104 tablet 0 ??? meclizine (ANTIVERT) 12.5 mg tablet ??? clobetasol (TEMOVATE) 0.05 % cream Apply topically 2 times daily. SA/SUN 30 g 0 ??? folic acid (FOLVITE) 1 mg [...] tablet by mouth daily. 30 tablet ??? INSULIN REGULAR, HUMAN (NOVOLIN R PENFILL INJ) [...] mcg/Actuation inhaler 2 Puff(s), Inh, Q6H ??? Calcipotriene (DOVONEX) 0.005 % Soln Apply to affected area BID THU-THU-THU 60 mL 0 Allergies Allergen Reactions ??? Anesthetics - Amide [...] Drug) All Antihistamines. PHYSICAL EXAMINATION: Filed Vitals: 05/15/14 0841 BP: 120/66 Pulse: 67 Temp: 36.7 ??C (98.1 ??F) TempSrc: Oral Height: 157.5 cm (5' 2) Weight: 84.369 kg (186 lb) SpO2: 97% Constitutional: Pleasant female sitting comfortably. HEENT: Normocephalic; (-) scleral injection, oral mucous membranes moist and intact. Neck: Neck supple; (-) lymphadenopathy (-) thyromegaly (-) parotid or submandibular gland enlargement Pulm: CTA; no wheezing, rales or rhonchi CV: RRR; no murmur or extra sounds; no CCE Neuro: Gait even and co-ordinated with use of a [...] and claw ?? Hips: Functional ROM, (+) tender; independent seated -> standing/standing to seated ?? Knees: Functional ROM, (-)effusions, (+) tenderness; (+) crepitus. ?? Ankles/feet: Functional ROM; decreased internal/external rotation; (-)MTP compression tenderness Skin: Warm, dry; (-) telangiectasias; (-) ulcers; (+) thin hyperkeratotic rash (LEFT elbow) and excoriations at right upper back -> no secondary infection; (-) nail pitting;(-) bruising Labs: Pending. ASSESSMENT : Joint and muscle pain, psoriasis, osteoarthritis, chronic steroid use. PLAN/RECOMMENDATIONS: ?? Continue prednisone 6 mg po daily. ?? Ongoing calcium and vitamin D dietary intake and supplementation. ?? Change route - methotrexate subcutaneous injection vs oral. ?? Patient instruction - demonstration. RX ot preferred pharmacy. ?? HOLD po methotrexate. ?? Methotrexate 20 mg sc weekly and folic acid to 2 mg po daily. ?? LABs requested - further planning - pending review. ?? Precautions associated with DMARD - monitor for signs of infection. ?? DXA to be scheduled - discussed reclast -> indications, pre-screening and potential adverse effects. ?? Reassess inflammatory markers at follow up. http://www.cdc.gov/mmwr/preview/mmwrhtml/gt25x5971e5.htm CDC - Immunocompromised persons ...Persons on immunosuppressive therapy, including high-dose corticosteroids (>20 mg/day of prednisone or equivalent) lasting two or more weeks. Zoster vaccination should be deferred for at least 1 month after discontinuation of such therapy (209). Short-term corticosteroid therapy (<14 days); lo [id number] dose (<20 mg/day of prednisone or equivalent); [...] ACIP recommendations on zoster vaccine, go to www.cdc.gov/mmwr/PDF/rr/gq64q5022.pdf PLAN: Will copy note to patient and PCP ?? Follow up in 6 weeks, sooner for concerns, questions or increased signs or symptoms. documented in this encounter Plan of Treatment Upcoming Encounters Date Type Specialty Care Team Description 02/26/2023 Office Visit Rheumatology Toño Rodriguez PA [facility] RHEUMATOLOGY [place], [place] [address] (Wo rk) documented as of this encounter Procedures Procedure Name Priority Date/Time Associated Comments Diagnosis HEMOGRAM Routine 05/15/2014 9:52 AM Rash Results for this EDT Encounter for procedure are in long-term (current) the resu lts use of other section. medications DIFFERENTIAL, Routine 05/15/2014 9:52 AM Rash Results for this AUTOMATED EDT Encounter for procedure are in long-term (current) the resu lts use of other section. medications SEDIMENTATION RATE Routine 05/15/2014 9:52 AM Rash Results for this EDT Encounter for procedure are in long-term (current) the resu lts use of other section. medications CBC (WITH DIFF) Routine 05/15/2014 9:52 AM Rash EDT Encounter for long-term (current) use of other medications COMPREHENSIVE Routine 05/15/2014 9:52 AM Rash Results for this METABOLIC PANEL EDT Encounter for procedure a re in (NON-FASTING) long-term (current) the res ults use of other section. medications documented in this encounter Results Dexa central-spine, [...] This is available through an interactive web-based INPHIa ce (http://www.shef.ac.uk/FRAX/) and can be used to [...] measurements a nd plots are available in ESustainability Roundtable under the imaging tab. Paper copies will be sent to providers without E-Work4 access. If you have received this report without the data sheet and do not have access to ESustainability Roundtable, please contact [facility] at [phone] Thursday thru Thursday 8am-4pm. Procedure Note Rea [...] measurements a nd plots are available in E- under the imaging tab. Paper copies will be sent to providers without E-DH access. If you have received this report without the data sheet and do not have access to E-Work4, please contact Radiology [facility] at [phone] Thursday thru Thursday 8am-4pm. Rosalino George MD IMG DEXA ORDERABLES (ABNORMAL) Differential, Automated (05/15/2014 9:52 AM EDT) [facility] gist Method Time Signature Neutrophils % 83.7 (H) 34.0 - CERNER 71.0 % MILLENNIUM Neutr Abs (ANC) 8.06 (H) 1.50 - CERNER 6.30 MILLENNIUM x10(3)/mc L Lymphocytes % 12.3 (L) 19.0 - CERNER 53.0 % MILLENNIUM Lymphocytes Abs 1.2 1.0 - 3.6 CERNER x10(3)/mc MILLENNIUM L Monocytes % 3.4 (L) 4.0 - CERNER 13.0 % MILLENNIUM Monocyte Abs 0.3 0.2 - 1.0 CERNER x10(3)/mc MILLENNIUM L Eosinophils % 0.2 0.0 - 7.0 CERNER % MILLENNIUM Eosinophils Abs 0.0 0.0 - 0.5 CERNER x10(3)/mc MILLENNIUM L Basophils % 0.2 0.0 - 2.0 CERNER % MILLENNIUM Basophils Abs 0.0 0.0 - 0.2 CERNER x10(3)/mc MILLENNIUM L Immature Gran % 0.20 0.00 - CERNER 0.66 % MILLENNIUM Comment: Immature granulocytes(IG's)percentage an d absolute count will include metamyelocytes, myelocytes, and promyelo cytes. Blood smears from CBCs yielding IG's will be scanned manually for nikhil daley. If this scan disagrees with the automated IG or if promyelocytes are not ed, a manual differential will be performed. Amber Gran Abs 0.02 0.00 - 0.05 x10(3)/mcL CER NER MILLENNIUM Specimen Anatomical Collection Method Collection Time Receive d Time (Source) Location / / Volume Laterality Blood specimen 05/15/2014 9:52 AM 014 (specimen) EDT 10:05 AM EDT Resulting Agency Comment Spec In Lab Rosalino George MD HEMATOLOGY ORDERABLES Performing Organization Address City/State/ZIP [place] [address] CERNER MILLENNIUM (ABNORMAL) Hemogram (05/15/2014 9:52 AM EDT) P athologist Signature WBC 9.6 4.0 - 10.0 CERNER x10(3)/mcL MILLENNIUM RBC 4.19 3.93 - CERNER 5.22 MILLENNIUM x10(6)/mcL Hemoglobin 12.7 11.2 - CERNER 15.7 gm/dL MILLENNIUM Hematocrit 39.1 34.0 - CERNER 45.0 % MILLENNIUM MCV 93.3 79.0 - CERNER 94.0 fL MILLENNIUM MCH 30.3 26.6 - CERNER 32.2 pg MILLENNIUM MCHC 32.5 32.0 - CERNER 36.5 gm/dL MILLENNIUM Platelets 221 145 - 370 CERNER x10(3)/mcL MILLENNIUM RDWSD 47.1 (H) 35.0 - CERNER 46.0 fL MILLENNIUM RDWCV 13.8 10.9 - CERNER 14.4 % MILLENNIUM MPV 11.2 9.0 - 12.0 CERNER fL MILLENNIUM Specimen Anatomical Collection Method Collection Time Receive d Time (Source) Location / / Volume Laterality Blood specimen 05/15/2014 9:52 AM 014 (specimen) EDT 10:05 AM EDT Resulting Agency Comment Spec In Lab Rosalino George MD HEMATOLOGY ORDERABLES Performing Organization Address City/[facility]/ZIP [place] [address] CERNER MILLENNIUM Sedimentation rate (05/15/2014 9:52 AM EDT) athologist Signature Sed Rate 9 0 - 20 CERNER mm/hr MILLENNIUM Specimen Anatomical Collection Method Collection Time Receive d Time (Source) Location / / Volume Laterality Blood specimen 05/15/2014 9:52 AM 014 (specimen) EDT 10:05 AM EDT Resulting Agency Comment Spec In Lab Rosalino George MD HEMATOLOGY ORDERABLES Performing Organization Address City/State/[place] [address] CERNER MILLENNIUM (ABNORMAL) Comprehensive metabolic panel (non-fasting) (05/15/2014 9:52 AM EDT) athologist Signature Glucose Lvl 203 (H) 60 - 199 CERNER mg/dL MILLENNIUM Comment: Diabetes: >=200 mg/dL plus symp toms BUN 20 (H) 8 - 18 mg/dL CERNER MILLENNIUM Creatinine 0.77 0.70 - 1.20 mg/dL CERNER MILL ENNIUM Comment: Please note that the pediatric reference intervals supplied above were not validated at [facility]. Results from pediatri c patients should be interpreted in conjunction to the patient's age, height and muscle mass. Sodium 140 135 - 145 mmol/L CERNER DEVON NIUM Potassium 3.7 3.5 - 5.0 mmol/L CERNER DEVON NIUM Comment: Please note: ??Patients with WBC >100,00 0 may have falsely elevated Potassium levels. ??For accurate Potassium quantif ication in these patients send serum separator tube (gold top) for subsequent determinations. ??Contact the Clinical Chemistry Laboratory if there are any qu estions. Chloride 98 98 - 107 mmol/L CERNER MILLENN IUM CO2 30 22 - 31 mmol/L CERNER MILLENNI UM Anion Gap 12 5 - 15 mmol/L CERNER MILLENNIU M Calcium 9.7 8.5 - 10.5 mg/dL CERNER DEVON NIUM Total Protein 7.1 6.4 - 8.3 gm/dL CERNER MIL LENNIUM Albumin 4.3 3.2 - 5.2 gm/dL CERNER MILLENN IUM AST 16 0 - 30 unit/L CERNER MILLENNIU M ALT 21 0 - 30 unit/L CERNER MILLENNIU M Alk Phos 69 40 - 104 unit/L CERNER MILLENN IUM Total Bilirubin 0.4 0.2 - 1.3 mg/dL CERNER M ILLENNIUM Bili, Direct 0.1 0.0 - 0.3 mg/dL CERNER MILL ENNIUM Estimated GFR >60 >=60 CERNER MILLENNIU M Comment: This estimated GFR (eGFR) value [...] the following links into your internet browser. [email or web address] [email or web address] Specimen Anatomical Collection Method Collection Time Receive d Time (Source) Location / / Volume Laterality Blood specimen 05/15/2014 9:52 AM 014 (specimen) EDT 10:05 AM EDT Resulting Agency Comment Spec In Lab Rosalino George MD CHEMISTRY ORDERABLES Performing Organization Address City/State/ZIP Code Phon e Number [place] [id number] SOURAV VASQUESIUM documented in this encounter Visit Diagnoses Diagnosis Psoriatic arthritis Psoriatic arthropathy Rash Rash and other nonspecific skin eruption Encounter for long-term (current) use of other medications Osteoporosis Osteoporosis, unspecified High risk medication use Encounter for long-term (current) use of other medications Joint pain Pain in joint, site unspecified Immunization counseling Other specified counseling Osteoporosis Osteoporosis, unspecified documented in this encounter Care Teams Certified Nurse Operating Room Relationship Specialty Start Date End Date Jennifer Silva APRN PCP - General 09/10/10 07/01/17 documented as of this encounter
--- OUTSIDE RECORDS SUMMARY | 2022-07-08 09:35 | XMS_ITS | Encounter Summary ---
:1945 Author Organization [facility] [place] [address] Care Team Providers Name Role Phone Jennifer Silva APRN Primary Care Provider Reason for Visit Reason Onset Date Comments Other 05/02/2014 prednisone Encounter Details Date Type Department Care Team Description 05/02/2014 Telephone Rheumatology at [facility] Brittany Spivey, Jo (prednisone) [facility] [place] [address] Social History Tobacco Use Types Packs/Day Years Used Date Former Smoker 2 Quit: 07/19/19 77 Smokeless Tobacco: Never Used Alcohol Use Standard Drinks/Week Comments No 0 (1 standard drink = 0.6 oz pure alcoho l) Sex Assigned at Date Recorded Not on file documented as of this encounter Miscellaneous Notes Telephone Encounter - Brittany Spivey RN - 05/02/2014 10:18 AM EDT Francisca called and left message requesting a renewal of her prednisone. She said Dr. Silva has her on 6 mg daily because of the pollen. documented in this encounter Plan of Treatment Upcoming Encounters Date Type Specialty Care Team Description 02/26/2023 Office Visit Rheumatology Toño Rodriguez PA [facility] ER [address] [place], [place] [address] (Wo rk) documented as of this encounter Visit Diagnoses Not on filedocumented in this encounter Care Teams Dust Mop Maker Relationship Specialty Start Date End Date Jennifer Silva APRN PCP - General 09/10/10 07/01/17 documented as of this encounter
--- OUTSIDE RECORDS SUMMARY | 2022-07-08 09:35 | XMS_ITS | Encounter Summary ---
:1945 Author Organization [facility] [place] [address] Care Team Providers Name Role Phone Jennifer Silva Kelsey GLIL Primary Care Provider Reason for Visit Reason Comments Macular Degeneration 6 month F/U for AMD OU (ends tage OD) with OCT OS Encounter Details Date Type Department Care Team Description 12/27/2014 Follow-Up Ophthalmology at [facility] Ella Dominguez AMD (age related [facility] Jade Burleson MD macular degeneration) [place] [address] [facility] [phone] OPH[address]Y [address] [place], [place] [address] (Wo rk) Social History Tobacco Use Types Packs/Day Years Used Date Former Smoker 2 Quit: 07/19/19 77 Smokeless Tobacco: Never Used Alcohol Use Standard Drinks/Week Comments No 0 (1 standard drink = 0.6 oz pure alcoho l) Sex Assigned at Date Recorded Not on file documented as of this encounter Progress Notes Ella Mcduffie MD - 12/27/2014 2:17 PM EDT OU AMD: OD end stage [...] Rodriguez PA [facility] [place], [place] [address] (Wo rk) documented as of this encounter Procedures Procedure Name Priority Date/Time Associated Diagnosis Comme nts OCT RETINA - OS - Routine 12/27/2014 2:16 PM AMD (age related Results for this LEFT EYE EDT macular procedure are i n degeneration) the results section. documented in this encounter Results OCT [id number] EYE (12/27/2014 2:16 PM EDT) Anatomical Region Laterality Modality Other Specimen (Source) Anatomical Location Collection Method / Collectio n Time Received Time / Laterality Volume Narrative 12/27/2014 2:16 PM EDT OS: essentially normal, with tiny residual fascet of sub/intraretinal cyst formation as seen on prior OCT's with no clinical effect. Ella Mcduffie MD OPHTHALMOLOGY SERVICES ORDER KEKE documented in this encounter Visit Diagnoses Diagnosis AMD (age related macular degeneration) Macular degeneration (senile) of retina, unspecified documented in this encounter Care Teams Care Administrative Tech Relationship Specialty Start Date End Date Jennifer Silva APRN PCP - General 09/10/10 07/01/17 documented as of this encounter
--- OUTSIDE RECORDS SUMMARY | 2022-07-08 09:35 | XMS_ITS | Encounter Summary ---
:1945 Author Organization [facility] [place] [address] Care Team Providers Name Role Phone Jennifer Silva JAIRO Primary Care Provider Encounter Details Date Type Department Care Team Description 11/03/2014 Orders Only Endocrinology at [facility] Johnnie Mortensen Edna Renteria, Type II or unspecified [facility] ASSOCIATE ARTISTIC DIRECTOR type diabetes mellitus [facility] [place] [address] CENTER zoey Morton [phone] ENDOCRINOLOGY stated as unco ntrolled DEPT. [place], [place] [address] Social History Tobacco Use Types [...] Rodriguez PA [facility] ER DR [place]Z [place], [place] [address] (Wo rk) documented as of this encounter Results Microalbumin, urine, random (03/07/2015 [...] Organization Address City/State/ZIP Code Phon e Number [place] [phone] CERNER MILLENNIUM (ABNORMAL) LDL Cholesterol, Direct (03/07/2015 11:35 AM EDT) P athologist Signature LDL Chol 110 (H) <=99 mg/dL CERNER Direct MILLENNIUM Comment: The National Cholesterol Education Progr am (NCEP) has set the following guidelines for LDL Cholesterol: Reference range: ?? Optimal: ?<100 mg/dL ?? Near Optimal/Above Optimal: ?? 100-1 29 mg/dL ?? Borderline high: ?130-159 mg/dL ?? High: ? 160-189 mg/dL ?? Very high: ?>re=564 mg/dL LAXMI 2001: 285(19):7618-3179 Specimen Anatomical Collection Method Collection Time Receive d Time (Source) Location / / Volume Laterality Blood specimen 03/07/2015 11:35 5 (specimen) AM EDT 11:49 AM EDT Resulting Agency Comment Spec In Lab Andrés Mary MD CHEMISTRY ORDERABLES Performing Organization Address City/[facility]/[place] [address] CERNER MILLENNIUM (ABNORMAL) HDL/Cholesterol [...] mg/dL ??Desirable: > 60 mg/dL LAXMI 2001; 285(19):6100-2163 Chol/HDL Ratio 2.7 ratio CERNER MILLENNI UM [...] Mary MD CHEMISTRY ORDERABLES Performing Organization Address City/[facility]/[place] [address] CERNER MILLENNIUM (ABNORMAL) Hemoglobin A1c (03/07/2015 11:35 AM EDT) Analysis Performed At Patho logist Time Signature Hemoglobin A1C 8.3 (H) 4.3 [...] Mellitus, Diabetes Care 2013; 36: Suppl. 1, S67-96 Est Avg Gluc See note mg/dL CERNER ENNIUM Comment: Estimated Average Glucose not appropriat e [...] with hemoglobinopathies. Additional resources are available on e ADA website: http://[employer].Bonsai AI/DHMCadacalc Jose Miguel BRAXTON, Moraima J, Ximena R, et al. ??Tr anslating the A1C assay into estimated average glucose values. ??Diabetes Care 2008:31(8):5973-9280. Specimen Anatomical Collection Method Collection Time Receive d Time (Source) Location / / Volume Laterality Blood specimen 03/07/2015 11:35 5 (specimen) AM EDT 11:49 AM EDT Resulting Agency Comment Spec In Lab Andrés Mary MD CHEMISTRY ORDERABLES Performing Organization Address City/State/ZIP Code Phon e Number [place] [phone] [facility] documented in this encounter Visit Diagnoses Diagnosis Type II or unspecified type diabetes kate litus without mention of complication, not stated as uncontrolled documented in this encounter Care Teams Door Serviceman Relationship Specialty Start Date End Date Jennifer Silva APRN PCP - General 09/10/10 07/01/17 documented as of this encounter
--- OUTSIDE RECORDS SUMMARY | 2022-07-08 09:35 | XMS_ITS | Encounter Summary ---
:1945 [address] [facility] [place] [address] Care Team Providers Name Role Phone Jennifer Silva APRN Primary Care Provider Reason for Visit Reason Comments Medication Refill Encounter Details Date Type Department Care Team Description 03/20/2015 Refill Rheumatology at [facility] Alisha Heredia APRN [facility] [place] [address] RHEUMATOLOGY DEPT. [phone] [place], [place] [address] (Wo katelyn) Social History Tobacco [...] 02/26/2023 Office Visit Rheumatology Toño Rodriguez PA [facility] [address] [place], [place] [address] (Wo rk) documented as of this encounter Visit Diagnoses Not on filedocumented in this encounter Care Teams Health Information Specialist Relationship Specialty Start Date End Date Jennifer Silva APRN PCP - General 09/10/10 07/01/17 documented as of this encounter
--- OUTSIDE RECORDS SUMMARY | 2022-07-08 09:35 | XMS_ITS | Encounter Summary ---
:1945 Author Organization [facility] [place] [address] Care Team Providers Name Role Phone Jennifer Silva APRN Primary Care Provider Reason for Visit Reason Comments Medication Refill Encounter Details Date Type Department Care Team Description 10/06/2013 Refill Rheumatology at [facility] Alisha Heredia APRN [facility] [place] [address] RHEUMATOLOGY DEPT. [phone] [place], [place] [address] (Wo katelyn) Social History Tobacco [...] 02/26/2023 Office Visit Rheumatology Toño Rodriguez PA [facility] [address] [place], [place] [address] (Wo rk) documented as of this encounter Visit Diagnoses Not on filedocumented in this encounter Care Teams Cardiology Nurse Practitioner Relationship Specialty Start Date End Date Jennifer Silva APRN PCP - General 09/10/10 07/01/17 documented as of this encounter
--- OUTSIDE RECORDS SUMMARY | 2022-07-08 09:35 | XMS_ITS | Encounter Summary ---
:1945 [place] [address] Care Team Providers Name Role Phone Jennifer Silva APRN Primary Care Provider Reason for Visit Reason Onset Date Comments Medication Refill 05/22/2014 Encounter Details Date Type Department Care Team Description 05/22/2014 Refill Rhe[place]ology [place] [facility] Alisha Heredia APRN [facility] [address] RHEUMATOLOGY DEPT. [phone] [place], [place] [address] (Wo rk) Social History Tobacco [...] 02/26/2023 Office Visit Rheumatology Toño Rodriguez, PA [facility] [address] [place] [address] (Wo rk) documented as of this encounter Visit Diagnoses Not on filedocumented in this encounter Care Teams Agricultural Extension Officer Relationship Specialty Start Date End Date Jennifer Silva APRN PCP - General 09/10/10 07/01/17 documented as of this encounter
--- OUTSIDE RECORDS SUMMARY | 2022-07-08 09:35 | XMS_ITS | Encounter Summary ---
:1945 Author Organization [facility] [place] [address] Care Team Providers Name Role Phone Jennifer Silva APRN Primary Care Provider Reason for Visit Reason Comments Medication Refill Encounter Details Date Type Department Care Team Description 05/30/2015 Refill Rheumatology at [facility] Alisha Heredia APRN [facility] [place] [address] RHEUMATOLOGY DEPT. [phone] [place], [place] [address] (Wo katelyn) Social History Tobacco [...] Toño Rodriguez PA [facility] [address] [place], [place] [address] (Wo rk) documented as of this encounter Visit Diagnoses Not on filedocumented in this encounter Care Teams Fashion Model Relationship Specialty Start Date End Date Jennifer Silva APRN PCP - General 09/10/10 07/01/17 documented as of this encounter
--- OUTSIDE RECORDS SUMMARY | 2022-07-08 09:35 | XMS_ITS | Encounter Summary ---
:1945 Author Organization [facility] [place] [address] Care Team Providers Name Role Phone Jennifer Silva APRN Primary Care Provider Reason for Visit Reason Onset Date Comments Other 03/01/2014 prednisone taper Encounter Details Date Type Department Care Team Description 03/01/2014 Telephone Rheumatology at [facility] Brittany Spivey ([facility] Jade Burleson RN taper) [place] [address] Social History Tobacco Use Types Packs/Day Years Used Date Former Smoker 2 Quit: 07/19/19 77 Smokeless Tobacco: Never Used Alcohol Use Standard Drinks/Week Comments No 0 (1 standard drink = 0.6 oz pure alcoho l) Sex Assigned at Date Recorded Not on file documented as of this encounter Miscellaneous Notes Telephone Encounter - Brittany Spivey RN - 03/07/2014 11:37 AM EDT No harm in acetaminophen as lonfg as no allergies and LFTs OK. OK to increase MTX to 20 mg weekly. Salma Called Francisca and left message letting her know new MTX rx was sent to pharmacy and that it is ok to add two Tylenol in the afternoon. Asked her to call back if she has any questions. Telephone Encounter - Brittany Spivey RN - 03/02/2014 3:07 PM EDT Francisca called back to say the she has pain and swelling in her right hip. She has pain, but no swelling in hands, knees, hips and torso. Francisca says her percocet has not been helping and her doctor had mentioned having her take it every three hours which she does not want to do. Explained that she is stalin modest taper and asked how she would feel about increasing methotrexate to 20 mg weekly subcutaneously. She currently takes it orally, but would be agreeable to an increase in either dosage form. Shesays she takes two extra strength Tylenol in the am and sometimes 2 in the pm, but that is all because her doctor was concerned about a build up of Tylenol in my system Told her I would check with Salma to see what she thinks about adding a couple Tylenol in the afternoon. Telephone Encounter - Brittany Spivey RN - 03/02/2014 10:46 AM EDT Planned taper Prednisone Date Even Days Odd Days MAY 1 6.5 mg 6.0 mg RADHA 1 6.0 mg 5.5 mg DIANNE 1 5.5 mg 5.0 mg This is a very modest taper. Could try increase in methotrexate to 20 mg weekly (sc route) to increase potential effect, slow or stop taper x 4-6 weeks while awaiting response to increase in MTX if the pain is joint centered and associated with swelling/sustained AM stiffness. Where is her pain? Accompanied by swelling or sustained AM joint stiffness? Has other analgesia, I believe. Pain may be OA vs inflam arthritis vs myofascial pain syndrome -> each requiring/responding to different treatment. More info will help to tease out what is going on. She has, if I remember accurately, chronic non-inflammatory musculoskeletal issues. Called Francisca and left message asking her to call back so we can discuss further. Telephone Encounter - Brittany Spivey RN - 03/01/2014 10:57 AM EDT Francisca called and left message on nursing line that she saw her pcp Jennifer Silva yesterday and that Jennifer was concerned about the prednisone taper. Francisca says that Jennifer would like the taper slowed down because of Francisca's extreme pain. Francisca says she will do what Salma recommends because she knows she needs to get off it. She wanted to pass this along to Salma as FYI and would like call back if Salma does change the plan. documented in this encounter Plan of Treatment Upcoming Encounters Date Type Specialty Care Team Description 02/26/2023 Office Visit Rheumatology Toño Rodriguez PA [facility] RHEUMATOLOGY [place], [place] [address] (Wo rk) documented as of this encounter Visit Diagnoses Not on filedocumented in this encounter Care Teams Teradata Developer Relationship Specialty Start Date End Date Jennifer Silva APRN PCP - General 09/10/10 07/01/17 documented as of this encounter
--- OUTSIDE RECORDS SUMMARY | 2022-07-08 09:35 | XMS_ITS | Encounter Summary ---
:1945 Author Organization [facility] [place] [address] Care Team Providers Name Role Phone Jennifer Silva APRN Primary Care Provider Encounter Details Date Type Department Care Team Description 06/28/2015 Office Visit Neurology at [facility] Juan Pena, Peripheral neuropathy; [facility] Carpal tunnel [place] [address] NEUROLOGY DEPT. [phone] [place], [place] [address] Social History Tobacco Use Types Packs/Day Years Used Date Former Smoker 2 Quit: 07/19/19 77 Smokeless Tobacco: Never Used Alcohol Use Standard Drinks/Week Comments No 0 (1 standard drink = 0.6 oz pure alcoho l) Sex Assigned at Date Recorded Not on file documented as of this encounter Last Filed Vital Signs Vital Sign Reading Time Taken Comments Blood Pressure 144/85 06/28/2015 12:20 PM EDT Pulse 77 06/28/2015 12:20 PM EDT Temperature - - Respiratory Rate - - Oxygen Saturation - - Inhaled Oxygen Concentration - - Weight 86.2 kg (190 lb) 06/28/2015 12:20 PM EDT Height 157.5 cm (5' 2) 06/28/2015 12:20 PM EDT Body Mass Index 34.75 06/28/2015 12:20 PM EDT documented in this encounter Progress Notes Juan Pena MD - 06/28/2015 2:07 PM EDT I was asked to see Francisca Kong at the request of Jennifer Silva for further evaluation of paresthesias. Francisca is a 70-year-old female who came to the appointment alone. She does have a history of fibromyalgia as well as osteoarthritis, psoriatic arthritis. She states that she has had balance issues for many years. She recalls seeing Dr. Kumari at [facility] in [facility] a few years ago. She says she had a head CT that showed age-related atrophy, but there was not any other clear cause for balance issues. She has been having for the last six months more calf tightness bilaterally. She gets some intermittent tingling in her feet but more so on the left. She also gets intermittent tingling in her hands, also exclusively on the left. She had a history of carpal tunnel release on the right. She says at night she can get increased tingling in her hands and in the forearms. She gets intermittent pain at the wrists. Sometimes it is also notable with driving. She has not tried any wrist splints. She denies any clear leg weakness. She denies any arm weakness. Past Medical History: Patient Active Problem List Diagnosis Date Noted ??? Osteopenia 02/09/2013 ??? History of tobacco abuse 02/09/2013 ??? HTN (hypertension) 02/09/2013 ??? Diabetes mellitus type II 02/09/2013 ??? Hyperlipidemia 02/09/2013 ??? Paroxysmal SVT (supraventricular tachycardia) 02/09/2013 ??? Asthma 02/09/2013 ??? Major depression 02/09/2013 ??? Irritable bowel 02/09/2013 ??? Arthritis 02/09/2013 ??? PTSD (post-traumatic stress disorder) 02/09/2013 ??? COPD (chronic obstructive pulmonary disease) 02/09/2013 ??? Bronchospasm 02/09/2013 ??? Anxiety state, unspecified 02/09/2013 ??? Hx of tobacco use, presenting hazards to health 02/09/2013 ??? Sinusitis 02/09/2013 ??? Stomatitis 02/09/2013 ??? Macular degeneration, wet 02/09/2013 ??? Nerve entrapment 02/09/2013 ??? Neuropathy 02/09/2013 ??? Chronic pain syndrome 02/09/2013 ??? Food intolerance 02/09/2013 ??? Fibromyalgia 07/27/2012 ??? AMD (age related macular degeneration) 03/24/2012 ??? Psoriatic arthritis ??? Coronary artery disease ??? DJD (degenerative joint disease) ??? GERD (gastroesophageal reflux disease) ??? Lipid disorder ??? Reactive airway disease Medications 06/28/15 0366 Medication Sig Taking? predniSONE (DELTASONE) 5 mg Tablet TAKE ONE TABLET BY MOUTH EVERY DAY Yes predniSONE (DELTASONE) 5 mg Tablet Take 1 tablet by mouth daily. Yes Cholecalciferol, Vitamin D3, (VITAMIN D-3) 2,000 unit Capsule Take 2,000 Units by mouth daily. Yes polyethylene glycol (MIRALAX) 17 gram Powder in Packet Take 17 g by mouth daily. Yes Liraglutide (VICTOZA) 0.6 mg/0.1 mL (18 mg/3 mL) Pen Injector Inject 1.8 mg subcutaneously daily. Yes Insulin Lispro (HUMALOG KWIKPEN) Insulin Pen Inject 2-8 Units subcutaneously 3 times daily as needed. Yes ZESTRIL 5 mg tablet Take 5 mg by mouth Daily. Yes meclizine (ANTIVERT) 12.5 mg tablet Take 12.5 mg by mouth as needed. Yes folic acid (FOLVITE) 1 mg tablet Take 2 tablets by mouth daily. May need earlier refill. Dose increase. Patient taking differently: Take 1 mg by mouth daily. May need earlier refill. Dose increase. Yes OXYcodone (ROXICODONE) 5 mg immediate release tablet Take 5 mg by mouth daily as needed. Yes hydrochlorothiazide (HYDRODIURIL) 25 mg tablet Take 1 tablet by mouth daily. Yes ascorbic acid (VITAMIN C) 1,000 mg tablet Take 1,000 mg by mouth as needed. Yes aspirin 325 mg tablet Take 325 mg by mouth daily. Yes CALCIUM ORAL Take 1,600 mg by mouth daily. Yes OMEGA-3S/DHA/EPA/FISH OIL (OMEGA 3 ORAL) Take 4,800 mg by mouth 4 times daily. Yes rosuvastatin (CRESTOR) 5 mg tablet Take 5 mg by mouth daily. 5 mg 4 times a week and 10mg 3 times a week Yes diaZEPam (VALIUM) 2 mg tablet Take 1 mg by mouth every 6 hours as needed. Yes digoxin (LANOXIN) 125 mcg tablet Take 62.5 mcg by mouth daily. Yes esomeprazole (NEXIUM) 40 mg capsule Take 40 mg by mouth 2 times daily. Yes acetaminophen (TYLENOL EXTRA STRENGTH) 500 mg tablet Take 1,000 mg by mouth 3 times daily as needed.Half tablet = 1MG Yes LEVALBUTEROL HCL (XOPENEX CONCENTRATE INHL) Inhale 1 Nebules into the lungs every 8 hours as needed.Yes MAGNESIUM CHLORIDE (SLOW-MAG ORAL) Take 99 mg by mouth 2 times daily. Yes verapamil (CALAN) 40 mg tablet 40 mg, PO, Three times daily Yes fluticasone (FLOVENT HFA) 110 mcg/Actuation inhaler 2 Puff(s), Inh, Twice daily Yes Levalbuterol Tartrate (XOPENEX HFA) 45 mcg/Actuation inhaler 2 Puff(s), Inh, Q6H Yes predniSONE (DELTASONE) 1 mg Tablet TAKE ONE TABLET BY MOUTH EVERY DAY (TAKE WITH 5 MG FOR A TOTAL DOSE OF 6 MG) Allergies Allergen Reactions ??? Anesthetics - Amide [...] Unable To Find [Unclassified Drug] All Antihistamines. Family History: Her mother had history of diabetic neuropathy. Of note, her son has some history of myotonic dystrophy. She says her ex-'s brother also had some sort of muscle disease, but she is not aware that her ex- did. She says one of her daughters is being tested for myotonic dystrophy. Her son's daughter also has it, she states. Social History: She quit smoking in 1978, does not drink alcohol. Review of Systems: As per history of presenting illness. Notable for chronic joint pains, also for chronic visual loss regarding her macular degeneration. She does mention chronic cervical pain and back pain. Otherwise is negative. In general, she appears in no distress. She comes in walking with her four-point cane. HEENT: Mucous membranes are moist. Sclera nonicteric. Oropharynx clear. Cardiovascular: Heart is regular rate and rhythm. S1, S2, no murmurs. Respiratory: Lungs are clear to auscultation bilaterally. Neurological: She is alert and oriented, attentive to questions. Speech is fluent, goal directed. No dysarthria. Affect appropriate. Cranial nerve testing II through XII intact, including extraocular movements intact. Normal facial sensation and strength. Motor exam: There is no clear muscle atrophy or fasciculations. Tone is normal. Power is 5/5 throughout, although left hip flexion meets to significant pain in the hip. Reflexes are 1/4 in the upper extremities. Absent knee jerks and ankle jerks. Toes downgoing. Sensory exam with moderate vibratory sensory loss in toes bilaterally. Mild at ankles. Normal joint position sense in the toes. Normal light touch in the upper and lower extremities. Gait is antalgic with mildly increasing base. She is slow. Some mild difficulty with turning. Romberg with some sway. She can do tandem gait but with some difficulty. Musculoskeletal: See neurological exam. Of note, she has some limitation with cervical lateral rotation on the left. Negative for a Lhermitte sign, although some pain with neck flexion. Tinel sign is negative at the wrist, although Phalen's positive bilaterally, more so on the left. Nerve Conduction Studies: Please see report for complete data. The left sural is absent. Left peroneal and tibial motor studies are normal. Left median sensory studies are absent. Left ulnar sensory study with mildly reduced amplitude and a mildly reduced conduction velocity. The left median distal motor latency severely prolonged at 7.8 milliseconds. Normal distal amplitude. Left ulnar motor study is normal except for conduction velocity slowing across the elbow at 43 milliseconds. This was not an EMG nerve conduction studies, it was just nerve conduction studies. 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 With respect to the patient's intermittent left upper extremity symptoms, this does suggest carpal tunnel syndrome in the context of her significant nerve conduction study abnormalities. It is unlikely that the mild ulnar neuropathy most likely at the level elbow would be contributing to her symptoms. With respect to the lower extremity intermittent calf tightness, this may be related to a mild generalized peripheral neuropathy. Some of her left foot numbness as well could be secondary to that, although it is difficult to tell, although also could consider it being related to lumbar spinal stenosis. She does have some chronic back pain. She also does have chronic balance issues but appear more related to multifactorial issues of neuropathy, osteoarthropathy, and age-related changes. She apparently had a head CT a few years ago that is unrevealing. She has not had any weakness on exam to suggest myopathy. Recommendations: We discussed that her gait difficulties appear multifactorial and that there is nothing to suggest MS, particularly not only with her clinical symptoms but her age. We discussed that physical therapy for gait and balance training specifically may be helpful. She can get a referral locally at [facility] through Jennifer Silva. We discussed also her left hip pain with hip flexion. Further evaluation of her hip may be indicated including hip x-rays. We also discussed the role of further imaging. Of note, she cannot really tolerate MRI, would need to do a standing MRI, which she says is in [place]. I do not think she needs an MRI of brain or C-spine. She did have an MRI C-spine about 10 years ago that showed some significant cervical osteoarthropathy, although she does not have any myelopathic exam findings at this point. If her balance issues worsen in the future, a followup head CT would be reasonable and can be compared to her previous, although I think is low yield at this point. If tolerated, an MRI brain and cervical spine (an open MR) I could be done in the future, but again, this does not appear indicated at this point. She is not interested in that as well. No further neurological followup has been made. I can see her in the future if needed. documented in this encounter Plan of Treatment Upcoming Encounters Date Type Specialty Care Team Description 02/26/2023 Office Visit Rheumatology Toño Rodriguez PA [facility] [address] MUNOZ [place], [place] [address] (Wo rk) documented as of this encounter Visit Diagnoses Diagnosis Peripheral neuropathy Unspecified hereditary and idiopathic pe ripheral neuropathy Carpal tunnel syndrome on left Carpal tunnel syndrome documented in this encounter Care Teams Production Control Pegboard Clerk Relationship Specialty Start Date End Date Jennifer Silva APRN PCP - General 09/10/10 07/01/17 documented as of this encounter
--- OUTSIDE RECORDS SUMMARY | 2022-07-08 09:35 | XMS_ITS | Encounter Summary ---
:1945 Author Organization [facility] [place] [address] Care Team Providers Name Role Phone Jennifer Silva APRN Primary Care Provider Encounter Details Date Type Department Care Team Description 03/02/2014 Orders Only Rheumatology at [facility] [place] Alisha Heredia APRN [facility] [place] [address] RHEUMATOLOGY DEPT. [phone] [place], [place] [address] (Wo rk) Social History Tobacco [...] 02/26/2023 Office Visit Rheumatology Toño Rodriguez PA [facility] [place] [address] [place], [place] [address] (Wo rk) documented as of this encounter Visit Diagnoses Not on filedocumented in this encounter Care Teams Construction Materials Tester Relationship Specialty Start Date End Date Jennifer Silva APRN PCP - General 09/10/10 07/01/17 documented as of this encounter
--- OUTSIDE RECORDS SUMMARY | 2022-07-08 09:35 | XMS_ITS | Encounter Summary ---
:1945 [place] [address] Care Team Providers Name Role Phone Jennifer Silva APRN Primary Care Provider Reason for Visit Reason Onset Date Comments Diabetes 2015 Encounter Details Date Type Department Care Team Description 2015 Telephone Endocrinology at [facility] Edna Foley APRN [facility] [place] [address] ENDOCRINOLOGY DEPT. [phone] [place], [place] [address] (Wo rk) Social History Tobacco Use Types Packs/Day Years Used Date Former Smoker 2 Quit: 07/19/19 77 Smokeless Tobacco: Never Used Alcohol Use Standard Drinks/Week Comments No 0 (1 standard drink = 0.6 oz pure alcoho l) Sex Assigned at Date Recorded Not on file documented as of this encounter Miscellaneous Notes Telephone Encounter - Edna Mortensen APRN - 2015 6:26 PM EDT Left message on pt's mobile # that victoza was not preferred and INSPECTOR PENETRANT is not going to add another medication at this time. documented in this encounter Plan of Treatment Upcoming Encounters Date Type Specialty Care Team Description 02/26/2023 Office Visit Rheumatology Toño Rodriguez PA [facility] RHEUMATOLOGY [place], [place] [address] (Wo rk) documented as of this encounter Visit Diagnoses Not on filedocumented in this encounter Care Teams Pickle Processor Relationship Specialty Start Date End Date Jennifer Silva APRN PCP - General 09/10/10 07/01/17 documented as of this encounter
--- OUTSIDE RECORDS SUMMARY | 2022-07-08 09:35 | XMS_ITS | Encounter Summary ---
:1945 Author Organization [facility] [place] [address] Care Team Providers Name Role Phone [place], Jennifer Cole APRN Primary Care Provider Reason for Visit Reason Onset Date Comments Other 12/16/2013 prednisone Encounter Details Date Type Department Care Team Description 12/16/2013 Telephone Rheumatology at [facility] [place] Vicki Champion LPN Other (prednisone) [place] [address] Social History Tobacco Use Types Packs/Day Years Used Date Former Smoker 2 Quit: 07/19/19 77 Smokeless Tobacco: Never Used Alcohol Use Standard Drinks/Week Comments No 0 (1 standard drink = 0.6 oz pure alcoho l) Sex Assigned at Date Recorded Not on file documented as of this encounter Miscellaneous Notes Telephone Encounter - Brittany Spivey RN - 12/19/2013 12:05 PM EST If she is having more pain, is it joint centered vs FMS and accompanied by joint swelling or prolonged AM stiffness? Is she using any OTC analgesia (tylenol/alevel - she does have lots of allergies). Inote she has a narcotic prescribed by historical provider. Best, really to be seen and evaluated. Do not taper steroid if joint pain, with swelling and need for follow up to assess should be reinforced. Thank you. Salma Called Francisca and she says pain is focused on her joints with swelling and prolonged am stiffness. She uses OTC Tylenol and Percocet when pain is really bad. Told her she really should be seen. She sayjonathan knows this, but has not been able to make it here due to weather. Told her to continue taking 6.5 mg prednisone daily and not taper it for now. Told her message will also be sent to assistant secretary to get her scheduled with Salma. She verbalized understanding of instructions. Telephone Encounter - Vicki Champion LPN - 12/16/2013 10:11 AM EST Francisca calls the clinic today saying she is on Prednisone 6.5 alternating with 6 mg and was wonderingif she should cut down to just 6 mg of prednisone? She has not been in for an appt do to [facility] as soon as she can she will schedule an appt. She has noticed she has been having more pain in her knees, feet, ankles and her upper torso since she lowered the dose of prednisone. Message forwarded to Salma Heredia. documented in this encounter Plan of Treatment Upcoming Encounters Date Type Specialty Care Team Description 02/26/2023 Office Visit Rheumatology Toño Rodriguez PA [facility] RHEUMATOLOGY [place], [place] [address] (Wo rk) documented as of this encounter Visit Diagnoses Not on filedocumented in this encounter Care Teams Hot Plate Press Operator Relationship Specialty Start Date End Date Jennifer Silva APRN PCP - General 09/10/10 07/01/17 documented as of this encounter
--- OUTSIDE RECORDS SUMMARY | 2022-07-08 09:35 | XMS_ITS | Encounter Summary ---
:1945 [place] [address] Care Team Providers Name Role Phone Jennifer Silva APRN Primary Care Provider Reason for Visit Reason Onset Date Comments Medication Refill 05/02/2014 Encounter Details Date Type Department Care Team Description 05/02/2014 Refill [place] [facility] [place]isha Heredia APRN [facility] [place] [address] RHEUMATOLOGY DEPT. [phone] [place], [place] [address] (Wo rk) Social History Tobacco [...] 02/26/2023 Office Visit Rheumatology Toño Rodriguez, PA [facility] [address] [place], [place] [address] (Wo rk) documented as of this encounter Visit Diagnoses Not on filedocumented in this encounter Care Teams Canvas Shrinker Relationship Specialty Start Date End Date Jennifer Silva APRN PCP - General 09/10/10 07/01/17 documented as of this encounter
--- OUTSIDE RECORDS SUMMARY | 2022-07-08 09:35 | XMS_ITS | Encounter Summary ---
:1945 Author Organization [facility] Address [facility] [place] [address] Care Team Providers Name Role Phone Jennifer Silva APRN Primary Care Provider Encounter Details Date Type Department Care Team Description 05/30/2015 Follow-Up Rheumatology at [facility] [place] Alisha Heredia, Psoriatic arthritis; [facility] Jade mijares APRN Encounter for long-term (current) use of other medications; [place] [address] [address] [facility] High risk medication use; [phone] Chronic steroid use; RHEUMATOLOGY DEP T. Diffuse pain [place], [place] [address] Social History Tobacco Use Types Packs/Day Years Used Date Former Smoker 2 Quit: 07/19/19 77 Smokeless Tobacco: Never Used Alcohol Use Standard Drinks/Week Comments No 0 (1 standard drink = 0.6 oz pure alcoho l) Sex Assigned at Date Recorded Not on file documented as of this encounter Last Filed Vital Signs Vital Sign Reading Time Taken Comments Blood Pressure 135/75 05/30/2015 9:41 AM EDT Pulse 78 05/30/2015 9:41 AM EDT Temperature 36.6 ??C (97.9 ??F) 05/30/2015 9:41 AM EDT Respiratory Rate - - Oxygen Saturation 98% 05/30/2015 9:41 AM EDT Inhaled Oxygen Concentration - - Weight 85.7 kg (189 lb) 05/30/2015 9:41 AM EDT Height 157.5 cm (5' 2) 05/30/2015 9:41 AM EDT Body Mass Index 34.57 05/30/2015 9:41 AM EDT documented in this encounter Patient Instructions Patient InstructionsAlisha Heredia, JAIRO - 05/30/2015 10:04 AM EDT Prednisone 15 mg in AM x 3d Prednisone 10 mg in AM 3d Prednisone 7.5 mg in AM x 3d Fibromyalgia (FMS) is a common health problem marked by widespread pain and tenderness. It is frequently associated with fatigue, headaches, irritable bowel symptoms, irritable bladder symptoms, paresthesias, a sense of swelling in the joints, difficulty with concentration, and disordered sleep. In 2010, the [place] [employer] revised their criteria for FMS to expand the definition of the disorder beyond pain, and to give more emphasis and weight to other symptoms including fatigue, depression, non-restorative sleep and somatic symptoms (irritable bowel syndrome, irritable bladder syndrome, cold extremities, morning stiffness, headaches, cognitive problems, dry eyes, easy bruising, hair loss, muscle weakness, abdominal pain). Most importantly, the criteria do not require a tender point count. The cause of fibromyalgia is not known. It is likely multifactorial for different stimuli can resultin the same clinical condition. Nevertheless, there is an understanding that fibromyalgia representsgeneralized allodynia. This means nonpainful stimuli, such as pressure, are perceived as painful. This can be demonstrated at the tender points, but also other areas of the body and may account for theirritable bladder and irritable bowel symptoms. It is NOT a chronic viral infection, Lyme disease orlatent lupus. The cause of this widespread allodynia is not known for certain, but loss of control in modulating pain stimuli at the spinal cord or central nervous system level is felt to be responsible. This results in a phenomenon known as central sensitization. Patients may also experience hyperalgesia or the amplification of normal pain signals. There may be other ???drivers?? of fibromyalgia pain. These drivers can be obstructive or central sleep apnea, restless leg syndrome, arthritis causing painful joints that interrupt sleep, and over orunder active thyroid gland function. However, unless there is soft tissue swelling of the joints a search for rheumatoid factor or antinuclear antibody is probably not warranted by complaints of joint pain alone. Treatment is divided into drugs used to improve sleep, drugs used as analgesics, exercise and cognitive behavioral therapy. PHARMACOLOGIC THERAPY Strong Evidence ??? Dual reuptake inhibitors such as: 1. Tricyclic compounds - Amitriptyline -Cyclobenzaprine 2. Serotonin-Norepinephrine reuptake inhibitors - Duloxetine - Milnacipran - Venlafaxine 3. Anticonvulsants - Gabapentin - Pregabalin Modest Evidence ??? Tramadol ??? Selective serotonin reuptake inhibitors Weak Evidence ??? NSAIDs No Evidence ??? Opioids, corticosteroids, benzodiazepine and non-benzodiazepine hypnotics SLEEP: Medications for sleep are widely prescribed. Low dose (10-25 mg) amitriptyline, or other tricyclics including cyclobenzaprine (5-10mg qhs), have been used. If daytime sleepiness occurs, the dosecan be taken earlier in the evening. Amitriptyline and cyclobenzapine have been shown in double-blind placebo-controlled trials to improve sleep over placebo. Attention to other sleep disturbances suchas sleep apnea, myoclonic jerks, excessive use of caffeine and alcohol and instructing patients in good sleep hygiene are also necessary. A sleep study may be useful in this regard. Diphenhydramine, zolpidem (Ambien), and benzodiazepines are not as beneficial in restoring the proper architecture of sleep. SSRI in the AM may be of benefit in treating concurrent depression or anxiety that might also interfere with sleep. PAIN: Duloxetine (Cymbalta) 30-60mg daily and milnacipran (Savella) taper, both dual serotonin and norepinephrine reuptake inhibitors, have been shown to be effective in treating the pain associated with fibromyalgia. Gabapentin (Neurontin) 100mg at bedtime or titrated up to 1200mg three times a day Pr egabalin (Lyrica) (50mg at bedtime up to 300mg a day) may be tried to help with neuropathic pain symptoms. Analgesics and nonsteroidals can be tried though frequently are of minimal benefit unless there is concomitant arthritis. Tramadol (Ultram) can be useful as it increases serotonin levels and also has analgesic properties. In fact, it has been shown in double blind, placebo controlled randomized studies to be better than placebo. Narcotics are to be avoided as there is evidence they may increase the pain of fibromyalgia. Pramiprexole (Mirapex) a dopamine agonist has also been shown to be effective indouble blind, placebo controlled trials for the treatment of FM pain and is especially useful for patients with restless leg syndrome. LIFESTYLE MODIFICATION: A prescription for aerobic exercise is cortez to improving functioning in patients with this disease. A variety of approaches have been used, but motivation and consistency are essential. A physical therapist or a personal secretary can be engaged in this role, but patient motivation and self- sufficiency must be encouraged. Weight training, aerobics, walking, water exercise, home programs and group exercises as well as yoga, yvette chi are all effective. Stretching alone however, hasbeen shown to be less effective than placebo. COGNITIVE BEHAVIORAL THERAPY and MINDFULNESS: The final keys to success in treating fibromyalgia arecognitive behavioral therapy and mindfulness. This gets at the mind-set of the patient and encourages them to take charge of their kaila. Rather than eliminating pain, cognitive behavioral therapy directs patients towards modalities that they can use to deal with pain and to function in spite of pain. Mindfulness (2.5 hours a week over 8 weeks) was shown in a 2014 Randomized Controlled Trial to reduce stress, sleep disturbance, and symptom severity although it did not alter pain or physical functioning. Your patient may have been able to participate in a mindfulness talk after our medical appointment today. Exercise and cognitive behavioral therapy consistently rate better in clinical trials than any medicine tested. This has been shown over and over in different patient groups and published in several different specialty journals. documented in this encounter Progress Notes Alisha Heredia APRN - 05/30/2015 9:51 AM EDT Francisca Kong is a 70 y.o. female [...] Food intolerance 579.8 INTERVAL HISTORY: Last seen 02/2015. Office contact on 05/25/2015. Pt calls today reporting that she has [...] pt doesn't like the s/e of feeling drugged up. Thinks my fibromyalgia acting up. Not sure why. Friends with similar symptoms. No joint swelling. Nopsoriasis rash. Symptoms almost all summer. Tylenol and narcotic pain meds, modest benefit. Prednisone 5 mg current dose, begging for more. States Almost ready to start Humira. Reports no joint swelling, (+) generalized stiffness after sedentary and in AM, pain all over, back and neck worst. Has been stacking wood, some. (+) stress associated with gentleman with aspberger's syndrome. Denies fever, chills, recent or recurrent illness or infection. Sees [facility] routinely. CRC contact -> unable to participate due to MTX requirements. No recent illness or infection. Bugbites. Lyme testing done <NEG>. Ongoing follow up with Dr. 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 Changed to vitamin D 3 2000 daily. Reports no other changes in medical, surgical, or social history. Is upto date on routine health maintenance and screening [...] 1 tablet by mouth daily. 30 tablet 3 ??? predniSONE (DELTASONE) 1 mg Tablet TAKE ONE TABLET BY MOUTH EVERY DAY (TAKE WITH 5 MG FOR A TOTAL DOSE OF 6 MG) 30 tablet 3 ??? Cholecalciferol, Vitamin D3, (VITAMIN D-3) 2,000 unit Capsule Take 2,000 Units by mouth daily. ??? polyethylene glycol (MIRALAX) 17 gram Powder in Packet Take 17 g by mouth daily. ??? Liraglutide (VICTOZA) 0.6 mg/0.1 mL (18 mg/3 mL) Pen Injector Inject 1.8 mg subcutaneously daily. 9 mL 6 ??? Insulin Lispro (HUMALOG KWIKPEN) Insulin Pen Inject 2-8 Units subcutaneously 3 times daily as needed. ??? ZESTRIL 5 mg tablet Take 5 mg by mouth Daily. ??? meclizine (ANTIVERT) 12.5 mg tablet ??? folic acid (FOLVITE) 1 mg tablet [...] Drug] All Antihistamines. PHYSICAL EXAMINATION: Filed Vitals: 05/30/15 0941 BP: 135/75 Pulse: 78 Temp: 36.6 ??C (97.9 ??F) TempSrc: Oral Height: 157.5 cm (5' 2) Weight: 85.73 kg (189 lb) SpO2: 98% Constitutional: Pleasant female sitting [...] effusion; (-) tenderness. ?? MCPs/PIPs: Functional ROM; (-) tender; (-) synovitis ?? (No) deformities; makes a near complete fist and claw ?? Hips: Functional ROM, (+) tender at MICHELLE trochanteric bursae; min-assist seated -> standing/standing to seated (+) pain in low back with transitions. ?? Knees: Functional ROM, (-)effusions, (+) tenderness; (+) crepitus. ?? Ankles/feet: Functional ROM; decreased internal/external rotation; (+) tender at left lateral malleoli; (-) MTP compression tenderness Skin: Warm, dry; (-) telangiectasias; (-) ulcers; (+) thin hyperkeratotic rash (LEFT elbow); (-) nail pitting;(-) bruising Labs: Reviewed. ASSESSMENT : Joint pain, psoriasis, osteoarthritis, osteoporosis; chronic steroid use. PLAN/RECOMMENDATIONS: ?? Prednisone 15 mg po X 3 d, 10 mg po QAM x 3d, 7.5 mg po QAM x 3 d, then resume prednisone 5 mg podaily with food. ?? Office contact if limited or no improvement. ?? Vitamin D level -> per PCP modified supplement. ?? Ongoing calcium and vitamin D dietary intake and supplementation. ?? Labs reviewed. ?? Keep PCP/HOTSHOT SUPERINTENDENT appointments ?? Follow up in 3 weeks, sooner for concerns, questions or increased signs/symptoms. Addendum: Reviewed FMS treatment strategies, including Cymbalta for OA/FMS. documented in this encounter Plan of Treatment Upcoming Encounters Date Type Specialty Care Team Description 02/26/2023 Office Visit Rheumatology Toño Rodriguez PA [facility] RHEUMATOLOGY [place], [place] [address] (Wo rk) documented as of this encounter Visit Diagnoses Diagnosis Psoriatic arthritis Psoriatic arthropathy Encounter for long-term (current) use of other medications High risk medication use Encounter for long-term (current) use of other medications Chronic steroid use Encounter for long-term (current) use of steroids Diffuse pain Generalized pain documented in this encounter Care Teams Used Car Sales Supervisor Relationship Specialty Start Date End Date Jennifer Silva APRN PCP - General 09/10/10 07/01/17 documented as of this encounter
--- OUTSIDE RECORDS SUMMARY | 2022-07-08 09:35 | XMS_ITS | Encounter Summary ---
:1945 Author Organization [facility] [place] [place] [address] Care Team Providers Name Role Phone Jennifer Silva APRN Primary Care Provider Reason for Visit Reason Comments Medication Refill Encounter Details Date Type Department Care Team Description 05/29/2015 [place] [facility] [place]isha Heredia APRN [facility] [place] [address] RHEUMATOLOGY DEPT. [phone] [place], [place] [address] (Wo katelyn) Social History Tobacco [...] Visit Rheumatology Toño Rodriguez PA [facility] [address] [place], [place] [address] (Wo rk) documented as of this encounter Visit Diagnoses Not on filedocumented in this encounter Care Teams Inside Wirer Relationship Specialty Start Date End Date Jennifer Silva APRN PCP - General 09/10/10 07/01/17 documented as of this encounter
--- OUTSIDE RECORDS SUMMARY | 2022-07-08 09:35 | XMS_ITS | Encounter Summary ---
:1945 Author Organization [facility] [place] [address] Care Team Providers Name Role Phone Jennifer Silva APRN Primary Care Provider Reason for Visit Reason Comments Medication Refill Encounter Details Date Type Department Care Team Description 01/03/2014 Refill Rheumatology [place] [facility] [place] Alisha Heredia APR[place] [facility] [place] [address] RHEUMATOLOGY DEPT. [phone] [place], [place] [address] (Wo katelyn) Social History Tobacco [...] Office Visit Rheumatology Toño Rodriguez PA [facility] [address] [place] [address] (Wo rk) documented as of this encounter Visit Diagnoses Not on filedocumented in this encounter Care Teams Therapy Assistant Relationship Specialty Start Date End Date Jennifer Silva APRN PCP - General 09/10/10 07/01/17 documented as of this encounter
--- OUTSIDE RECORDS SUMMARY | 2022-07-08 09:35 | XMS_ITS | Encounter Summary ---
:1945 Author Organization [facility] [place] [address] Care Team Providers Name Role Phone MarshallJennifer mckeon JAIRO Primary Care Provider Encounter Details Date Type Department Care Team Description 10/07/2013 Orders Only Rheumatology at [facility] [place] Alisha Heredia, Encounter for medication mon itoring (Primary Dx); [facility] HOME OFFICE CLAIM SPECIALIST [place] [address] RHEUMATOLOGY [place], [place] [address] Social History Tobacco Use Types Packs/Day Years Used Date Former Smoker 2 Quit: 07/19/19 79 Smokeless Tobacco: Never Used Alcohol Use Standard Drinks/Week Comments No 0 (1 standard drink = 0.6 oz pure alcoho l) Sex Assigned at Date Recorded Not on file documented as of this encounter Progress Notes Brittany Spivey RN - 10/07/2013 10:43 AM EST Lab orders faxed to [facility] today. documented in this encounter Plan of Treatment Upcoming Encounters Date Type Specialty Care Team Description 02/26/2023 Office Visit Rheumatology Toño Rodriguez PA [facility] RHEUMATOLOGY [place], [place] [address] (Wo rk) documented as of this encounter Visit Diagnoses Diagnosis Encounter for medication monitoring - Pr imary Encounter for therapeutic drug monitorin g Psoriatic arthritis Psoriatic arthropathy documented in this encounter Care Teams Director Digital Catalogue Relationship Specialty Start Date End Date Jennifer Silva APRN PCP - General 09/10/10 07/01/17 documented as of this encounter
--- OUTSIDE RECORDS SUMMARY | 2022-07-08 09:35 | XMS_ITS | Encounter Summary ---
:1945 Author Organization [facility] [place] [address] Care Team Providers Name Role Phone Jennifer Silva APRN Primary Care Provider Encounter Details Date Type Department Care Team Description 02/13/2014 [place] [facility] [place]isha Heredia, Psoriatic arthritis (Primary Dx); [facility] Jade mijares APRN Chronic steroid use; [place] [address] [facility] Encounter for long-term (cur rent) use of other medications [phone] RHEUMATOLOGY [place], [place] [address] Social History Tobacco Use Types Packs/Day Years Used Date Former Smoker 2 Quit: 07/19/19 77 Smokeless Tobacco: Never Used Alcohol Use Standard Drinks/Week Comments No 0 (1 standard drink = 0.6 oz pure alcoho l) Sex Assigned at Date Recorded Not on file documented as of this encounter Last Filed Vital Signs Vital Sign Reading Time Taken Comments Blood Pressure 137/72 02/13/2014 1:41 PM EDT Pulse 90 02/13/2014 1:41 PM EDT Temperature 36.5 ??C (97.7 ??F) 02/13/2014 1:41 PM EDT Respiratory Rate - - Oxygen Saturation 99% 02/13/2014 1:41 PM EDT Inhaled Oxygen Concentration - - Weight 84.7 kg (186 lb 12.8 oz) 02/13/2014 1:41 PM EDT Height 157.5 cm (5' 2) 02/13/2014 1:41 PM EDT Body Mass Index 34.17 02/13/2014 1:41 PM EDT documented in this encounter Patient Instructions Patient InstructionsLlAlisha thompson APRN - 02/13/2014 2:33 PM EDT ?? Planned taper Prednisone Date Even Days Odd Days MAY 1 6.5 mg 6.0 mg RADHA 1 6.0 mg 5.5 mg DIANNE 1 5.5 mg 5.0 mg ?? Ongoing calcium and vitamin D dietary intake and supplementation. ?? Continue methotrexate 15 mg po weekly and folic acid to 2 mg po daily. ?? Clobetasol and dovonex as directed. ?? LABs requested - further planning - pending review. ?? Precautions associated with DMARD - monitor for signs of infection. ?? Reassess inflammatory markers at follow up. ?? Follow up in 12 weeks, sooner for concerns, questions or increased signs or symptoms. documented in this encounter Progress Notes Alisha Heredia APRN - 02/13/2014 1:57 PM EDT Francisca Kong is a 68 y.o. female seen for ongoing evaluation and [...] ?? Planned taper Prednisone Was doing OK. At 6 mg had problems with joint pain, affecting elbows, neck, ribs. Resumed 6.5 mg . Elbows and right hip stiff, right knee stiff. Feet (+) pain. No joint swelling. Date Even Days Odd Days OCT 1 7.0 mg 7.5 mg NOV 1 7.0 mg 7.0 mg DEC 1 7.0 mg 6.5 mg ?? Ongoing calcium and vitamin D dietary intake and supplementation. Ongoing. ?? Continue methotrexate 15 mg po weekly and folic acid to 2 mg po daily. Ongoing without interruption or AE. ?? LABs requested - further planning - pending review. No action. ?? Precautions associated with DMARD - monitor for signs of infection. Ongoing. (+) psoriasis rash at both elbows. Ongoing follow up with Dr. 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 Sees Dr. Keane annually for 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 disease s/p single vessel stent Denies recurrent iinfection. 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 predniSONE (DELTASONE) 5 mg tablet TAKE ONE TABLET BY MOUTH EVERY DAY ALONG WITH 1MG TABLETS 30 tablet 2 ??? VITAMIN D 50,000 unit capsule TAKE ONE CAPSULE BY MOUTH EVERY 30 DAYS 3 capsule 3 ? ? predniSONE (DELTASONE) 1 mg tablet Take 1 1/2 tabs daily with 1 5 mg tablet -> October 2013 tapering dose = 6.5 mg po QAM. 60 tablet 2 ??? OXYcodone (ROXICODONE) 5 mg immediate release tablet Take 5 mg by mouth daily as needed. ??? hydrochlorothiazide (HYDRODIURIL) 25 mg tablet Take 1 tablet by mouth daily. 30 tablet ??? INSULIN REGULAR, HUMAN (NOVOLIN R PENFILL INJ) Inject 0-10 Units as directed daily as needed. ??? methotrexate 2.5 mg tablet Take 6 tablets by mouth once a week. 78 tablet 3 ??? folic acid (FOLVITE) 1 mg tablet Take 2 tablets by mouth daily. May need earlier refill. Dose increase. 180 tablet 3 ??? ascorbic acid (VITAMIN C) 1,000 mg [...] by mouth 2 times daily. ??? [DISCONTINUED] lisinopril (PRINIVIL;ZESTRIL) 5 mg tablet Take 5 mg by mouth daily. ??? LEVALBUTEROL HCL (XOPENEX CONCENTRATE INHL) Inhale [...] mcg/Actuation inhaler 2 Puff(s), Inh, Q6H ??? acetaminophen (TYLENOL EXTRA STRENGTH) 500 mg tablet Take 1,000 mg by mouth 3 times daily as needed. Half tablet = 1MG Allergies Allergen Reactions ??? Anesthetics - Amide [...] Drug) All Antihistamines. PHYSICAL EXAMINATION: Filed Vitals: 02/13/14 1341 BP: 137/72 Pulse: 90 Temp: 36.5 ??C (97.7 ??F) TempSrc: Oral Height: 157.5 cm (5' 2) Weight: 84.732 kg (186 lb 12.8 oz) SpO2: 99% Constitutional: Pleasant female sitting comfortably. HEENT: Normocephalic; [...] fist and claw ?? Hips: Functional ROM, decreased intenral ROM bilateral; independent seated -> standing/standing to seated ?? Knees: Functional ROM, (-)effusions, (+) tenderness at RIGHT knee (+) crepitus. ?? Ankles/feet: Functional ROM; decreased internal/external rotation; (-)MTP compression tenderness Skin: Warm, dry; (-) telangiectasias; (-) ulcers; (+) thin hyperkeratotic rash (LEFT elbow); (-) nail pitting;(-) bruising Labs: Pending. ASSESSMENT : Joint and muscle pain, psoriasis, osteoarthritis, chronic steroid use. PLAN/RECOMMENDATIONS: ?? Planned taper Prednisone Date Even Days Odd Days MAY 1 6.5 mg 6.0 mg RADHA 1 6.0 mg 5.5 mg DIANNE 1 5.5 mg 5.0 mg ?? Ongoing calcium and vitamin D dietary intake and supplementation. ?? Continue methotrexate 15 mg po weekly and folic acid to 2 mg po daily. ?? LABs requested - further planning - pending review. ?? Precautions associated with DMARD - monitor for signs of infection. ?? Reassess inflammatory markers at follow up. ?? Follow up in 12 weeks, sooner for concerns, questions or increased signs or symptoms. documented in this encounter Plan of Treatment Upcoming Encounters Date Type Specialty Care Team Description 02/26/2023 Office Visit Rheumatology Toño Rodriguez PA [facility] [place], [place] [address] (Wo rk) Scheduled Orders Name Type Priority Associated Diagnoses Order S chedule CBC (with Diff) Lab Routine Psoriatic arthri tis Expected: 02/13/2014, Encounter for long-term Expi res: 02/14/2015 (current) use of other medications Hepatic Function Panel Lab Routine Psoriatic arthritis Expected: 02/13/2014, Encounter for long-term Expi res: 02/13/2015 (current) use of other medications Creatinine Lab Routine Psoriatic arthri tis Expected: 02/13/2014, Encounter for long-term Expi res: 02/14/2015 (current) use of other medications High Sensitivity CRP Lab Routine Psoriatic a rthritis Expected: 02/13/2014, Encounter for long-term Expi res: 02/14/2015 (current) use of other medications documented as of this encounter Procedures Procedure Name Priority Date/Time Associated Comments Diagnosis DIFFERENTIAL, Routine 02/13/2014 2:50 PM Results for this AUTOMATED EDT procedure are i n the results section. SEDIMENTATION RATE Routine 02/13/2014 2:50 PM Encounter for Re sults for this EDT long-term (current) procedur e are in use of other the results medications section. CBC (WITH DIFF) Routine 02/13/2014 2:50 PM Encounter for Resul ts for this EDT long-term (current) procedur e are in use of other the results medications section. CRP, CARDIAC RISK (HS Routine 02/13/2014 2:50 PM Encounter for Results for this CRP) EDT long-term (current) procedur e are in use of other the results medications section. COMPREHENSIVE Routine 02/13/2014 2:50 PM Encounter for Results for this METABOLIC PANEL EDT long-term (current) proce dure are in (NON-FASTING) use of other the results medications section. documented in this encounter Results (ABNORMAL) Differential, Automated (02/13/2014 2:50 PM EDT) [facility] Method Time Signature Neutrophils % 81.1 (H) 34.0 - CERNER 71.0 % MILLENNIUM Neutr Abs (ANC) 9.23 (H) 1.50 - CERNER 6.30 MILLENNIUM x10(3)/mc L Lymphocytes % 13.9 (L) 19.0 - CERNER 53.0 % MILLENNIUM Lymphocytes Abs 1.6 1.0 - 3.6 CERNER x10(3)/mc MILLENNIUM L Monocytes % 4.4 4.0 - CERNER 13.0 % MILLENNIUM Monocyte Abs 0.5 0.2 - 1.0 CERNER x10(3)/mc MILLENNIUM L [...] yielding IG's will be scanned manually for concmack dankaro. If this scan disagrees with the automated IG or if promyelocytes are not ed, a manual differential will be performed. Amber Gran Abs 0.02 0.00 - 0.05 x10(3)/mcL CER NER MILLENNIUM Specimen Anatomical Collection Method Collection Time Receive d Time (Source) Location / / Volume Laterality Blood specimen 02/13/2014 2:50 PM 014 2:56 (specimen) EDT PM EDT Maria A Suarez DO HEMATOLOGY ORDERABLES Performing Organization Address City/State/ZIP Code Phon e Number [place] [address] CERNER MILLENNIUM Sedimentation rate (02/13/2014 2:50 PM EDT) athologist Signature Sed Rate 9 0 - 20 CERNER mm/hr MILLENNIUM Specimen Anatomical Collection Method Collection Time Receive d Time (Source) Location / / Volume Laterality Blood specimen 02/13/2014 2:50 PM 014 2:56 (specimen) EDT PM EDT Resulting Agency Comment Spec In Lab Maria A Suarez DO HEMATOLOGY ORDERABLES Performing Organization Address City/State/ZIP Code Phon e Number [place] [address] [place] MILLENNIUM (ABNORMAL) Comprehensive metabolic panel (non-fasting) (02/13/2014 2:50 PM EDT) athologist Signature Glucose Lvl 193 60 - 199 CERNER mg/dL MILLENNIUM Comment: Diabetes: >=200 mg/dL plus symp toms BUN 21 (H) 8 - 18 mg/dL CERNER MILLENNIUM Creatinine 0.73 0.70 - 1.20 mg/dL CERNER MILL ENNIUM Comment: Please note that the pediatric reference intervals supplied above were not [place] [facility] [place] Results from pediatri c patients should be [...] Anion Gap 13 5 - 15 mmol/L CERNER MILLENNIU M Calcium 9.6 8.5 - 10.5 mg/dL CERNER DEVON NIUM Total Protein 6.9 6.4 - 8.3 gm/dL CERNER MIL LENNIUM Albumin 4.3 3.2 - 5.2 gm/dL CERNER MILLENN IUM AST 21 0 - 30 unit/L CERNER MILLENNIU M ALT 23 0 - 30 unit/L CERNER MILLENNIU M Alk Phos 65 40 - 104 unit/L CERNER MILLENN IUM Total Bilirubin 0.3 0.2 - 1.3 mg/dL CERNER M ILLENNIUM [...] Organization Address City/State/ZIP Code Phon e Number [place] [phone] CERNER MILLENNIUM (ABNORMAL) CBC (with Diff) (02/13/2014 2:50 PM EDT) P athologist Signature WBC 11.4 (H) 4.0 - 10.0 CERNER x10(3)/mcL MILLENNIUM RBC 4.26 3.93 - CERNER 5.22 MILLENNIUM x10(6)/mcL Hemoglobin 13.1 11.2 - CERNER 15.7 gm/dL MILLENNIUM Hematocrit 39.5 34.0 - CERNER 45.0 % MILLENNIUM MCV 92.7 79.0 - CERNER 94.0 fL MILLENNIUM MCH 30.8 26.6 - CERNER 32.2 pg MILLENNIUM MCHC 33.2 32.0 - CERNER 36.5 gm/dL [facility] Platelets 247 145 - 370 CERNER x10(3)/mcL MILLENNIUM RDWSD 45.4 35.0 - CERNER 46.0 fL [facility] RDWCV 13.4 10.9 - CERNER 14.4 % [facility] MPV 11.1 9.0 - 12.0 CERNER fL [facility] Specimen Anatomical Collection Method Collection Time Receive d Time (Source) Location / / Volume Laterality Blood specimen 02/13/2014 2:50 PM 014 2:56 (specimen) EDT PM EDT Resulting Agency Comment Spec In Lab Maria A Suarez DO HEMATOLOGY ORDERABLES Performing Organization Address City/State/ZIP Code Phon e Number [place] [phone] [facility] High Sensitivity CRP (02/13/2014 2:50 PM EDT) athologist Signature CRP High Sens 2.3 mg/L [facility] Comment: Interpretations: 1) For accurate cardiac risk [...] Organization Address City/State/[place] [address] [facility] documented in this encounter Visit Diagnoses Diagnosis Psoriatic arthritis - Primary Psoriatic arthropathy Chronic steroid use Encounter for long-term (current) use of steroids Encounter for long-term (current) use of other medications documented in this encounter Care Teams [employer] [place] Relationship Specialty Start Date End Date Jennifer Silva APRN PCP - General 09/10/10 07/01/17 documented as of this encounter
--- OUTSIDE RECORDS SUMMARY | 2022-07-08 09:36 | XMS_ITS | Encounter Summary ---
:1945 Author Organization [facility] [place] [address] Care Team Providers Name Role Phone Jennifer Silva APRN Primary Care Provider Reason for Visit Reason Onset Date Comments Other 09/30/2012 Encounter Details Date Type Department Care Team Description 09/30/2012 Telephone Rheumatology at [facility] [place] [address] Social History Tobacco Use Types Packs/Day Years Used Date Former Smoker 2 Quit: 07/19/19 77 Smokeless Tobacco: Never Used Alcohol Use Standard Drinks/Week Comments No 0 (1 standard drink = 0.6 oz pure alcoho l) Sex Assigned at Date Recorded Not on file documented as of this encounter Miscellaneous Notes Telephone Encounter - Carlene Meraz RN - 10/01/2012 9:24 AM EST This nurse has printed out information for pt. Attempted to reach pt at home, not there, and her cell, no answer. Mailed info to pt including info as to Jade Heredia documentation spec response as below. Telephone Encounter - Alisha Heredia APRN - 09/30/2012 9:14 PM EST I have heard of this, but do not know of any specific testing. I would suspect Neurology, but she could check with her PCP. 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 Reached pt at her home. She would like to know if she is a carrier or has this sx. 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 They have told him this is like Mariah Gerhigs disease and that only 60% of his diaphragm is working. He is 44 y/o and his 19y/o daughter also has it. She has been experiencing increased muscle pain (before the news about her son) and she has FMS. Sheis not sure that this is a flare up of her FMS or if this could be sx of SPS as well. She'd like to be tested but does not know what to ask for. Her son's doctor (down in [place]) would not be helpful. Her son does not want to give her the doctor's name. She has not found any info on this disease or it's treatment. Can Salma test her for anything? This nurse found some info on our medical database (Up To Date) and will print out info to mail to her. This nurse will also ask Jade Heredia NP if there is a test that she could order for this pt. documented in this encounter Plan of Treatment Upcoming Encounters Date Type Specialty Care Team Description 02/26/2023 Office Visit Rheumatology Toño Rodriguez PA [facility] [address] [place], [place] [address] (Wo rk) documented as of this encounter Visit Diagnoses Not on filedocumented in this encounter Care Teams Health Club Attendant Relationship Specialty Start Date End Date Jennifer Silva APRN PCP - General 09/10/10 07/01/17 documented as of this encounter
--- OUTSIDE RECORDS SUMMARY | 2022-07-08 09:36 | XMS_ITS | Encounter Summary ---
:1945 Author Organization [facility] [place] [address] Care Team Providers Name Role Phone Jennifer Ledesma APRN Primary Care Provider Reason for Visit Reason Comments Other degenerative joint disease Encounter Details Date Type Department Care Team Description 02/09/2013 Follow-Up Rheumatology at [facility] Alisha Heredia DJD (degenerative joint dise ase) (Primary Dx); [facility] Jade mijares APRN Osteopenia; [place] [address] [facility] Psoriatic arthritis; [phone] DR Muscle pain; RHEUMATOLOGY DEP T. Joint pain [place], [place] [address] Social History Tobacco Use Types Packs/Day Years Used Date Former Smoker 2 Quit: 07/19/19 77 Smokeless Tobacco: Never Used Alcohol Use Standard Drinks/Week Comments No 0 (1 standard drink = 0.6 oz pure alcoho l) Sex Assigned at Date Recorded Not on file documented as of this encounter Last Filed Vital Signs Vital Sign Reading Time Taken Comments Blood Pressure 124/68 02/09/2013 11:33 AM EDT Pulse 76 02/09/2013 11:33 AM EDT Temperature 36.5 ??C (97.7 ??F) 02/09/2013 11:33 AM EDT Respiratory Rate - - Oxygen Saturation 99% 02/09/2013 11:33 AM EDT Inhaled Oxygen Concentration - - Weight 85.8 kg (189 lb 3.2 oz) 02/09/2013 11:33 AM EDT Height 157.5 cm (5' 2) 02/09/2013 11:33 AM EDT Body Mass Index 34.61 02/09/2013 11:33 AM EDT documented in this encounter Patient Instructions Patient InstructionsVicki Champion LPN - 02/09/2013 11:41 AM EDT ?? Labs pending. ?? Case and assessment findings reviewed with Rheumatology Fellow. ?? Repeat CBC, ESR and CRP -> 1 week. ?? Prednisone 10 mg po QAM x 14 d; 7.5 mg po QAM x 14 d; 5 mg po QAM until seen in follow up. ?? Reassess inflammatory markers at follow up. ?? Follow up in 6 weeks, sooner for concerns, questions or increased signs or symptoms. Welcome to [employer], your secure online access to your electronic medical record at [facility]. Using [employer] you will be able to send messages to your providers, view your test results, renew prescriptions, schedule appointments, and much more. Follow these instructions to enter your personal [employer] account for the first time: 1. Start your internet browser and type [email or web address] into the address bar. 2. In the New User box on the right-hand side of the Welcome page click the link that states, ???I have an activation code.?? 3. On the Identification page, follow these steps: a) Enter your [employer] activation code: Not generated b) Current myD-H Status: Active IMPORTANT: This Activation Code will on the above mentioned date. If you do not sign up for [employer] by this date, you will need to request another activation code. c) Enter your date of , using the calendar tool provided. d) Enter your Zip code. e) Select ???submit?? to go to the next page. 4. On the Create Account page, follow these steps: a) Create a [employer] username. This can???t be changed, so choose one you won???t forget. b) Create a password that???s at least six characters long, and that contains at least two numbers. Your password can be changed at any time. Confirm your password by entering it once more. c) Enter your email address. This will be used to alert you to new information. Confirm your email address by entering it once more. d) Enter your security question. This will be used if you forget your password. e) Enter your security answer. Confirm your security answer by entering it once more. f) Select ???submit?? to view your electronic medical record. If you have any questions about myD-H or your Access Code, please call for [place], for [place] or for [place]. If you need technical support, please e-mail [email or web address]. Remember, [employer] is NOT for urgent needs! Always dial 911 for medical emergencies. documented in this encounter Progress Notes Alisha Heredia APRN - 02/09/2013 11:51 AM EDT Francisca Kong is a 67 y.o. female seen for ongoing evaluation and management of psoriatic arthritis. She is unaccompanied. Patient Active Problem List Diagnoses Code ??? Coronary artery disease 414.00 ??? DJD (degenerative joint disease) 715.90 ??? GERD (gastroesophageal reflux disease) 530.81 ??? Lipid disorder 272.9 ??? Psoriatic arthritis 696.0 ??? Reactive airway disease 493.90 ??? AMD (age related macular degeneration) 362.50 ??? Fibromyalgia 729.1 ??? Osteopenia 733.90 ??? History of tobacco abuse V15.82 ??? HTN (hypertension) 401.9 INTERVAL HISTORY: Reports throughout the winter, pain in upper body - shoulders, elbows, wrists, hands and neck. Last fall, knocked down by dogs. Xrays neg - no paresthesias. All winter long, limited functional ROM and strength. Was seen by surgeon (one week ago) and got steroid injections to left shoulder and wrist with modest improvement - more range of motion. Xrays completed at same time - no active arthritis and no evidence of fracture. JENNIFER LEDESMA, APRNinitiated steroids in October 2012 - 20 mg x 2 weeks, improvement on this dose; tapered to 10 mg x 4 weeks; less benefit -> more pain in muscles and joints; then gradual taper of 1 mg/week. Off x 1 day. Using percocet during this interval. Ultram (RX) not filled. Using ES tylenolduring the day; helps a lot. Percocet at night. Hips, knees, ankles tight in last 24 h. (-) joint swelling. (+) joint stiffness in shoulders, elbows, wrist and hands all day long. No bloodwork completed. Wonders if this could be fibromyalgia. Reports ongoing cardiac rehabilitation participation. Off methotrexate since late 2010. Ongoing follow up with Dr. 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 Sees Dr. Keane annually for 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 disease s/p single vessel stent Denies recurrent iinfection. Reports no other changes in medical, surgical, or social history. Is upto date on routine health maintenance and screening exams. Plan annual influenza vaccine. ROS: GEN: (-) fever; (-) night sweats; (-) chills; (+) weight loss ~ 7 lbs/gain; (+) fatigue HEENT: (-) dry eyes; (-) [...] to Visit Medication Sig Dispense Refill ??? VITAMIN D 50,000 unit capsule TAKE ONE CAPSULE BY MOUTH EVERY 30 DAYS 12 capsule 3 ??? hydrochlorothiazide (HYDRODIURIL) 25 mg tablet Take 12.5 mg by mouth daily. ??? ascorbic acid (VITAMIN C) 1,000 mg tablet Take 1,000 mg by mouth every 3 days. ??? aspirin 325 mg tablet Take 325 mg by mouth daily. ??? CALCIUM ORAL Take 1,600 mg by mouth daily. ??? OMEGA-3S/DHA/EPA/FISH OIL (OMEGA 3 ORAL) Take 4,800 mg by mouth daily. ??? rosuvastatin (CRESTOR) 5 mg tablet Take 5 mg by mouth daily. ??? insulin regular human (NOVOLIN R) 100 unit/mL vial injection Inject subcutaneously See Admin Instructions. SLIDING SCALE DIRECTED ??? OXYcodone-acetaminophen (PERCOCET) 5-325 mg per tablet Take 1 tablet by mouth as needed. ??? diaZEPam (VALIUM) 2 mg tablet Take 1 mg by mouth every 6 hours as needed. ??? digoxin (LANOXIN) 125 mcg tablet Take 62.5 mcg by mouth daily. ??? esomeprazole (NEXIUM) 40 mg capsule Take 40 mg by mouth 2 times daily. ??? lisinopril (PRINIVIL;ZESTRIL) 5 mg tablet Take 5 mg by mouth daily. ??? acetaminophen (TYLENOL EXTRA STRENGTH) 500 mg tablet Take 1,000 mg by mouth 3 times daily. Half tablet = 1MG ??? LEVALBUTEROL HCL (XOPENEX CONCENTRATE INHL) Inhale 1 Nebules into the lungs every 8 hours as needed. ??? MAGNESIUM CHLORIDE (SLOW-MAG ORAL) Take 99 mg by mouth 2 times daily. ??? DISCONTD: Calcipotriene (DOVONEX) 0.005 % Crea 1 Appl(s), Top, 2x daily -- ??? verapamil (CALAN) 40 mg tablet 40 mg, PO, Three times daily ??? CYANOCOBALAMIN, VITAMIN B-12, (VITAMIN B-12 ORAL) ??? folic acid (FOLVITE) 1 mg tablet 1 mg PO Once daily ??? fluticasone (FLOVENT HFA) 110 mcg/Actuation inhaler 2 Puff(s), Inh, Twice daily ??? Levalbuterol Tartrate (XOPENEX HFA) 45 mcg/Actuation inhaler 2 Puff(s), Inh, Q6H ??? DISCONTD: diaZEPam (VALIUM) 2 mg tablet Take 1 mg by mouth daily as needed. ??? DISCONTD: clobetasol (TEMOVATE) 0.05 % cream 1 Appl(s), Top, 2 x daily SAT/SUN Allergies Allergen Reactions ??? Anesthetics - Amide [...] Drug) All Antihistamines. PHYSICAL EXAMINATION: Filed Vitals: 02/09/13 1133 BP: 124/68 Pulse: 76 Temp: 36.5 ??C (97.7 ??F) TempSrc: Oral Height: 157.5 cm (5' 2) Weight: 85.821 kg (189 lb 3.2 oz) SpO2: 99% Constitutional: Pleasant female sitting comfortably. HEENT: Normocephalic; (-)scleral injection, oral mucous membranes moist and intact. Neck: Neck supple; (-) lymphadenopathy (-) thyromegaly (-) parotid or submandibular gland enlargement Pulm: CTA; no wheezing, rales or rhonchi CV: RRR; no murmur or extra sounds; no CCE Neuro: Gait stiff, slow; co-ordinated with use of a cane; speech clearly articulated Musculoskeletal: Muscle mass bilaterally symmetric. Joint exam: ?? Neck: ROM functional, limited in bilateral flexion/rotation ?? Shoulders: Limited ROM in all planes (bilateral), tender ?? Elbows: Functional ROM, nontender; (-) extensor surface nodules or effusion ?? Wrists: Functional ROM; (-) effusion; (+) tenderness ?? MCPs/PIPs: Functional ROM; (+) tender; (-) synovitis ?? (No) deformities; makes a near complete fist and claw ?? Hips: Functional ROM, decreased intenral ROM bilateral; (+) tenderness; independent seated -> standing/standing to seated ?? Knees: Functional ROM, (-)effusions, (-) no tenderness ?? Ankles/feet: Functional ROM, (-)MTP compression tenderness Skin: Warm, dry; (-) telangiectasias; (-) ulcers; (+) thin hyperkeratotic rash (LEFT elbow); (-) nail pitting;(-) bruising Labs: Pending. ASSESSMENT : Joint and muscle pain, impaired functional mobility, psoriasis, osteoarthritis, osteopenia. PLAN/RECOMMENDATIONS: ?? Labs pending. ?? Case and assessment findings reviewed with Rheumatology Fellow. ?? Repeat CBC, ESR and CRP -> 1 week. ?? Prednisone 10 mg po QAM x 14 d; 7.5 mg po QAM x 14 d; 5 mg po QAM until seen in follow up. ?? Reassess inflammatory markers at follow up. ?? Follow up in 6 weeks, sooner for concerns, questions or increased signs or symptoms. Addendum (02/28/2013): ?? Case review with attending (BRANDY). Would add MTX 15 mg po weekly, folic acid daily. Reassess at 6 weeks. Monitor for signs of infection. ?? Phone contact with JENNIFER LEDESMA APRN on 02/28/2013. Reviewed recommendations after review. Will be seen in PCP's office in early March. ?? Schedule follow up at 6 weeks. (April 12). Addendum: Recent Results (from the past 24 hour(s)) CBC (WITH DIFF) Component Value Range WBC 14.5 (*) 4.0 - 10.0 x10(3)/mcL RBC 4.29 3.93 - 5.22 x10(6)/mcL Hemoglobin 12.5 11.2 - 15.7 gm/dL Hematocrit 38.3 34.0 - 45.0 % MCV 89.3 79.0 - 94.0 fL MCH 29.1 26.6 - 32.2 pg MCHC 32.6 32.0 - 36.5 gm/dL Platelets 316 145 - 370 x10(3)/mcL RDWSD 43.2 35.0 - 46.0 fL RDWCV 13.3 10.9 - 14.4 % MPV 10.7 9.0 - 12.0 fL SEDIMENTATION RATE Component Value Range Sed Rate 36 (*) 0 - 20 mm/hr HIGH SENSITIVITY CRP Component Value Range CRP High Sens 27.8 COMPREHENSIVE METABOLIC PANEL (NON-FASTING) Component Value Range Glucose Lvl 174 60 - 199 mg/dL BUN 20 (*) 8 - 18 mg/dL Creatinine 0.68 (*) 0.70 - 1.20 mg/dL Sodium 138 135 - 145 mmol/L Potassium 3.7 3.5 - 5.0 mmol/L Chloride 100 98 - 107 mmol/L CO2 28 22 - 31 mmol/L Anion Gap 10 5 - 15 mmol/L Calcium 9.8 8.5 - 10.5 mg/dL Total Protein 7.2 6.4 - 8.3 gm/dL Albumin 4.2 3.2 - 5.2 gm/dL AST 9 0 - 30 unit/L ALT 10 0 - 30 unit/L Alk Phos 72 40 - 104 unit/L Total Bilirubin 0.2 0.2 - 1.3 mg/dL Bili, Direct 0.1 0.0 - 0.3 mg/dL Estimated GFR >60 >=60 DIFFERENTIAL, AUTOMATED Component Value Range Neutrophils % 78.1 (*) 34.0 - 71.0 % Neutr Abs (ANC) 11.30 (*) 1.50 - 6.30 x10(3)/mcL Lymphocytes % 16.6 (*) 19.0 - 53.0 % Lymphocytes Abs 2.4 1.0 - 3.6 x10(3)/mcL Monocytes % 4.6 4.0 - 13.0 % Monocyte Abs 0.7 0.2 - 1.0 x10(3)/mcL Eosinophils % 0.3 0.0 - 7.0 % Eosinophils Abs 0.0 0.0 - 0.5 x10(3)/mcL Basophils % 0.2 0.0 - 2.0 % Basophils Abs 0.0 0.0 - 0.2 x10(3)/mcL Immature Gran % 0.20 0.00 - 0.66 % Amber Gran Abs 0.03 0.00 - 0.05 x10(3)/mcL Component Latest Ref Rng 02/17/2013 Neutrophils % 34.0 - 71.0 % 77.8 (H) Neutr Abs (ANC) 1.50 - 6.30 x10(3)/mcL 12.22 (H) Lymphocytes % 19.0 - 53.0 % 15.0 (L) Lymphocytes Abs 1.0 - 3.6 x10(3)/mcL 2.4 Monocytes % 4.0 - 13.0 % 6.4 Monocyte Abs 0.2 - 1.0 x10(3)/mcL 1.0 Eosinophils % 0.0 - 7.0 % 0.3 Eosinophils Abs 0.0 - 0.5 x10(3)/mcL 0.0 Basophils % 0.0 - 2.0 % 0.2 Basophils Abs 0.0 - 0.2 x10(3)/mcL 0.0 Immature Gran % 0.00 - 0.66 % 0.30 Amber Gran Abs 0.00 - 0.05 x10(3)/mcL 0.04 WBC 4.0 - 10.0 x10(3)/mcL 15.7 (H) RBC 3.93 - 5.22 x10(6)/mcL 4.40 Hemoglobin 11.2 - 15.7 gm/dL 12.8 Hematocrit 34.0 - 45.0 % 39.6 MCV 79.0 - 94.0 fL 90.0 MCH 26.6 - 32.2 pg 29.1 MCHC 32.0 - 36.5 gm/dL 32.3 Platelets 145 - 370 x10(3)/mcL 318 RDWSD 35.0 - 46.0 fL 43.6 RDWCV 10.9 - 14.4 % 13.4 MPV 9.0 - 12.0 fL 10.9 Sed Rate 0 - 20 mm/hr 30 (H) CRP High Sens 35.1 documented in this encounter Plan of Treatment Upcoming Encounters Date Type Specialty Care Team Description 02/26/2023 Office Visit Rheumatology Toño Rodriguez PA [facility] [place] [place], [place] [address] (Wo rk) documented as of this encounter Procedures Procedure Name Priority Date/Time Associated Comments Diagnosis DIFFERENTIAL, Routine 02/09/2013 12:38 Results fo r this AUTOMATED PM EDT procedure are i n the results section. SEDIMENTATION RATE Routine 02/09/2013 12:38 Psoriatic arthriti s Results for this PM EDT procedure are i n the results section. CBC (WITH DIFF) Routine 02/09/2013 12:38 Psoriatic arthritis R esults for this PM EDT procedure are i n the results section. CRP, CARDIAC RISK (HS Routine 02/09/2013 12:38 Psoriatic arthr itis Results for this CRP) PM EDT procedure are i n the results section. COMPREHENSIVE Routine 02/09/2013 12:38 Psoriatic arthritis Res ults for this METABOLIC PANEL PM EDT procedure ar e in (NON-FASTING) the results section. documented in this encounter Results (ABNORMAL) Differential, Automated (02/09/2013 12:38 PM EDT) [facility] gist Method Time Signature Neutrophils % 78.1 (H) 34.0 - CERNER 71.0 % MILLENNIUM Neutr Abs (ANC) 11.30 (H) 1.50 - CERNER 6.30 MILLENNIUM x10(3)/mc L Lymphocytes % 16.6 (L) 19.0 - CERNER 53.0 % MILLENNIUM Lymphocytes Abs 2.4 1.0 - 3.6 CERNER x10(3)/mc MILLENNIUM L Monocytes % 4.6 4.0 - CERNER 13.0 % MILLENNIUM Monocyte Abs 0.7 0.2 - 1.0 CERNER x10(3)/mc MILLENNIUM L Eosinophils % 0.3 0.0 - 7.0 CERNER % MILLENNIUM Eosinophils [...] Location / / Volume Laterality Blood specimen 02/09/2013 12:38 3 (specimen) PM EDT 12:43 PM EDT Wander Lee MD HEMATOLOGY ORDERABLES Performing Organization Address City/State/ZIP Code Phon e Number [place] [phone] CERNER MILLENNIUM (ABNORMAL) Comprehensive metabolic panel (non-fasting) (02/09/2013 12:38 PM EDT) athologist Signature Glucose Lvl 174 60 - 199 CERNER mg/dL MILLENNIUM Comment: Diabetes: >=200 mg/dL plus symp toms BUN 20 (H) 8 - 18 mg/dL CERNER MILLENNIUM Creatinine 0.68 (L) 0.70 - 1.20 mg/dL CERNER MILL ENNIUM Comment: Please note that the pediatric reference intervals supplied above were not validated at [facility]. Results from pediatri c patients should be interpreted in conjunction to the patient's age, height and muscle mass. Sodium 138 135 - 145 mmol/L CERNER DEVON NIUM Potassium 3.7 3.5 - 5.0 mmol/L CERNER DEVON NIUM Comment: Please note: ??Patients with WBC >100,00 0 may have falsely elevated Potassium levels. ??For accurate Potassium quantif ication in these patients send serum separator tube (gold top) for subsequent determinations. ??Contact the Clinical Chemistry Laboratory if there are any qu estions. Chloride 100 98 - 107 mmol/L CERNER MILLENN IUM CO2 28 22 - 31 mmol/L CERNER MILLENNI UM Anion Gap 10 5 - 15 mmol/L CERNER MILLENNIU M Calcium 9.8 8.5 - 10.5 mg/dL CERNER DEVON NIUM Total Protein 7.2 6.4 - 8.3 gm/dL CERNER MIL LENNIUM Albumin 4.2 3.2 - 5.2 gm/dL CERNER MILLENN IUM AST 9 0 - 30 unit/L CERNER MILLENNIU M ALT 10 0 - 30 unit/L CERNER MILLENNIU M Alk Phos 72 40 - 104 unit/L CERNER MILLENN IUM Total Bilirubin 0.2 0.2 - 1.3 mg/dL CERNER M ILLENNIUM Bili, Direct 0.1 0.0 - 0.3 mg/dL CERNER MILL ENNIUM Estimated GFR >60 >=60 CERNER MILLENNIU M Comment: The National Kidney Disease Education Pr ogram (NKDEP) has recommended all laboratories report estimated GFR (eGFR) along with plasma creatinine measurements to assist you with recognit ion of early kidney disease. Caveats: ??Plasma creatinine should be a t steady-state (unchanged within the past week). For patient s multiply eGFR by 1.2. The MDRD equation was developed using patients be tween the ages of 18 and 70 years. ?? The MDRD equation has not been validated for patients < 18 years of age and should not be used to assess renal function in the pediatric population. ??The MDRD eGFR equation will also overestimate the true GFR of patients above the age of 70. ??This overestimation is variable bu t increases with age. At present, NKDEP does NOT recommend usi ng the MDRD equation for drug dosing purposes and pharmacists should continue to use their current dosing methods. In addition, numerical eGFR values great er than 60 ml/min/1.73 square meters should be treated as > 60, and not an ex act number due to greater inaccuracies at these higher values. Per NKDEP, they classify normal renal function as any GFR >60ml/min/1.73 square meters; chronic kidney disease wh en GFR <60, and renal failure when GFR <15. ??This calculation may not be valid for patients with atypical muscle mass (very lean or obese), acute renal failur e, and in patients with diabetic kidney disease. References: http://nkdep.nih.gov/resources/NKDEP_Sug gestn4Labs_0606_508.pdf http://www.kidney.org/professionals/kls/ pdf/faq_gfr.pdf Jairon K, Hunter NA, Taye AK, Reid TS, Luigi AD, Veena MARY. Relative performance of the MDRD and CKD-EPI equa tions for estimating glomerular filtration rate among patients with vari ed clinical presentations. Clin J Am Soc Nephrol;6:1963-72. Specimen Anatomical Collection Method Collection Time Receive d Time (Source) Location / / Volume Laterality Blood specimen 02/09/2013 12:38 3 (specimen) PM EDT 12:43 PM EDT Resulting Agency Comment Spec In Lab Wander Lee MD CHEMISTRY ORDERABLES Performing Organization Address City/State/ZIP Code Phon e Number [place] [phone] SOURAV Bringrr High Sensitivity CRP (02/09/2013 12:38 PM EDT) P athologist Signature CRP High Sens 27.8 mg/L CERNER Perk DynamicsENNIUM Comment: Result rechecked. DA Interpretations: 1) For cardiac risk assessment, two valu es (fasting or nonfasting sample acceptable) taken at least 2 weeks apart , should be averaged to provide a more reliable estimate of marker level. ??Thi s laboratory uses the recommendations from the AHA/CDC Scientific Statement fo r interpretations of future risks of cardiovascular events: ? <1.0 mg/L: low risk 1.0 - 3.0 mg/L: moderate risk >3.0 mg/L: high risk groups for future c ardiovascular events 2) The general reference range of appare ntly healthy individuals using this test is <5.0 mg/L (derived from the test package insert) A few words of caution: For cardiac asse ssment, when a value >10 mg/L is encountered, there should be a search fo r an acute inflammatory condition or infection (in patients with acute inflam mation, the concentration can increase to >500 mg/L). ??The >10 mg/L should be discarded if such a situation exists, since the risk for coronary heart diseas e cannot be provided, and a repeat specimen, taken at least two weeks after resolution of the acute inflammatory condition, may allow for appraisal of co ronary risk information. Please note that significantly decreased CRP values may be obtained from samples taken from patients who have bee n treated with carboxypenicillins. References: 1. Jen TAYLOR et. al. ??AHA/CDC Scientif ic Statement: Markers of Inflammation and Cardiovascular Disease. ??Circulatio n 2003; 107:499-511 Ridker PM. ??Clinical applications of C- reactive protein for cardiovascular disease detection and prevention. ??Circ ulation 2003; 107:363-369 Specimen Anatomical Collection Method Collection Time Receive d Time (Source) Location / / Volume Laterality Blood specimen 02/09/2013 12:38 3 (specimen) PM EDT 12:43 PM EDT Resulting Agency Comment Spec In Lab Wander Lee MD CHEMISTRY ORDERABLES Performing Organization Address City/[facility]/ZIP Code Phon e Number [address] CERNER MILLENNIUM (ABNORMAL) Sedimentation rate (02/09/2013 12:38 PM EDT) P athologist Signature Sed Rate 36 (H) 0 - 20 CERNER mm/hr MILLENNIUM Specimen Anatomical Collection Method Collection Time Receive d Time (Source) Location / / Volume Laterality Blood specimen 02/09/2013 12:38 3 (specimen) PM EDT 12:43 PM EDT Resulting Agency Comment Spec In Lab Wander Lee MD HEMATOLOGY ORDERABLES Performing Organization Address City/[facility]/ZIP [facility] [place] [address] CERNER MILLENNIUM (ABNORMAL) CBC (with Diff) (02/09/2013 12:38 PM EDT) P athologist Signature WBC 14.5 (H) 4.0 - 10.0 CERNER x10(3)/mcL MILLENNIUM RBC 4.29 3.93 - CERNER 5.22 MILLENNIUM x10(6)/mcL Hemoglobin 12.5 11.2 - CERNER 15.7 gm/dL MILLENNIUM Hematocrit 38.3 34.0 - CERNER 45.0 % MILLENNIUM MCV 89.3 79.0 - CERNER 94.0 fL MILLENNIUM MCH 29.1 26.6 - CERNER 32.2 pg MILLENNIUM MCHC 32.6 32.0 - CERNER 36.5 gm/dL ENNIUM Platelets 316 145 - 370 CERNER x10(3)/mcL ENNIUM RDWSD 43.2 35.0 - CERNER 46.0 fL MILLENNIUM RDWCV 13.3 10.9 - CERNER 14.4 % ENNIUM MPV 10.7 9.0 - 12.0 CERNER fL MILLENNIUM Specimen Anatomical Collection Method Collection Time Receive d Time (Source) Location / / Volume Laterality Blood specimen 02/09/2013 12:38 3 (specimen) PM EDT 12:43 PM EDT Resulting Agency Comment Spec In Lab Wander Lee MD HEMATOLOGY ORDERABLES Performing Organization Address City/State/[place] [address] [facility] documented in this encounter Visit Diagnoses Diagnosis DJD (degenerative joint disease) - Prima ry Osteoarthrosis, unspecified whether gene ralized or localized, unspecified site Osteopenia Disorder of bone and cartilage, unspecif ied Psoriatic arthritis Psoriatic arthropathy Muscle pain Mylagia and myositis, unspecified Joint pain Pain in joint, site unspecified documented in this encounter Care Teams Senior Unix Administrator Relationship Specialty Start Date End Date Jennifer Ledesma APRN PCP - General 09/10/10 07/01/17 documented as of this encounter
--- OUTSIDE RECORDS SUMMARY | 2022-07-08 09:36 | XMS_ITS | Encounter Summary ---
:1945 Author Organization [facility] Address One [facility] [place] [address] Care Team Providers Name Role Phone Jennifer Silva APRN Primary Care Provider Reason for Visit Reason Onset Date Comments Labs Only 05/01/2011 Encounter Details Date Type Department Care Team Description 05/01/2011 Telephone Rheumatology at [facility] Alisha Heredia APRN Labs Only [facility] [place] [address] RHEUMATOLOGY DEPT. [phone] [place], [place] [address] (Wo rk) Social History Tobacco Use Types Packs/Day Years Used Date Former Smoker Smokeless Tobacco: Never Used Alcohol Use Standard Drinks/Week Comments Not Asked 0 (1 standard drink = 0.6 oz pure alcoho l) Sex Assigned at Date Recorded Not on file documented as of this encounter Miscellaneous Notes Telephone Encounter - William Gomes - 05/01/2011 2:[address] UPLOAD documented in this encounter Plan of Treatment Upcoming Encounters Date Type Specialty Care Team Description 02/26/2023 Office Visit Rheumatology Toño Rodriguez PA [facility] RHEUMATOLOGY [place], [place] [address] (Wo rk) documented as of this encounter Procedures Procedure Name Priority Date/Time Associated Diagnosis Comme nts FILM LIBRARY Routine 06/18/2007 3:28 PM Results f or this STORAGE ONLY CT EDT procedure ar e in CHEST the results section. documented in this encounter Results FILM LIBRARY- STORAGE ONLY CT CHEST (06/18/2007 3:28 PM EDT) Specimen (Source) Anatomical Collection Method Collection Time Re ceived Time Location / / Volume Laterality 06/18/2007 3:28 PM EDT Narrative RAD - 02/22/2014 7:03 PM EDT This is a non-reportable exam. Procedure Note Fabrizio Mauro - 02/22/2014Formatting of t his note might be different from the original. This is a non-reportable exam. Samina Gomes MD Kelsey FILM LIBRARY ORDERABLES Performing Organization Address City/State/ZIP Code Phon e Number [facility] RAD [address] [facility] [place] [address] documented in this encounter Visit Diagnoses Diagnosis Dyspnea Other dyspnea and respiratory abnormalit y Encounter for long-term (current) use of other medications documented in this encounter Care Teams Deliverer Merchandise Relationship Specialty Start Date End Date Jennifer Silva APRN PCP - General 09/10/10 07/01/17 documented as of this encounter
--- OUTSIDE RECORDS SUMMARY | 2022-07-08 09:36 | XMS_ITS | Encounter Summary ---
:1945 Author Organization [facility] [place] [address] Care Team Providers Name Role Phone Jennifer Silva Kelsey GILL Primary Care Provider Encounter Details Date Type Department Care Team Description 02/11/2012 Orders Only Rheumatology at [facility] Alisha Heredia, DJD (degenerative [facility] DEMO COORDINATOR joint disease) [facility] (Primary Dx) [place] [address] RHEUMATOLOGY DEP [place], [place] [address] Social History Tobacco Use Types [...] Rodriguez PA [facility] RHEUMATOLOGY [place], [place] [address] (Wo rk) documented as of this encounter Visit Diagnoses Diagnosis DJD (degenerative joint disease) - Prima ry Osteoarthrosis, unspecified whether gene ralized or localized, unspecified site documented in this encounter Care Teams Individual Pension Adviser Relationship Specialty Start Date End Date Jennifer Silva APRN PCP - General 09/10/10 07/01/17 documented as of this encounter
--- OUTSIDE RECORDS SUMMARY | 2022-07-08 09:36 | XMS_ITS | Encounter Summary ---
:1945 Author Organization [facility] [place] [address] Care Team Providers Name Role Phone Jennifer Silva APRN Primary Care Provider Reason for Visit Reason Comments Coronary Artery Disease Encounter Details Date Type Department Care Team Description 08/17/2013 Follow-Up Cardiology at [facility] [place] Jeremy Keane, BARBARA (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 disease ); [facility] Pain in lower jaw; [facility] Lipid disorder; [place] [address] [address] Coronary artery disease [phone] CARDIOLOGY DEPT. [place], [place] [address] (Wo rk) Social History Tobacco [...] Sign Reading Time Taken Comments Blood Pressure 130/70 08/17/2013 11:06 AM EDT Pulse 88 08/17/2013 11:06 AM EDT Temperature - - Respiratory Rate - - Oxygen Saturation 97% 08/17/2013 11:06 AM EDT Inhaled Oxygen Concentration - - Weight 84.9 kg (187 lb 3.2 oz) 08/17/2013 11:06 AM EDT Height 157.5 cm (5' 2) 08/17/2013 11:06 AM EDT Body Mass Index 34.24 08/17/2013 11:06 AM EDT documented in this encounter Progress Notes Jeremy Keane MD - 08/17/2013 11:58 AM EDT Cardiology Clinic Note History: Francisca Kong is a 68 y.o. female presenting for routine office follow up of cardiovascular problems. The patient has a new diagnosis of polymyalgia rheumatica and is now on daily prednisone. Some of the symptoms of he muscle pain, neck discomfort and, perhaps, jaw pain is related to this condition. She is concerned as to whether her jaw pain is cardiac in nature as this was her main symptom back in 2007 before her LAD PCI. The patient is participating in cardiac rehab sessions and able to walk on a treadmill or use an exercise bicycle without inducing the lower jaw ache. Most of this pain is at rest. She has not used nitroglycerin. She has been working on her diabetic control and weight but this has been more difficult with the prednisone side effect. Her other medication regimen is stable. No PND, orthopnea, presyncope or syncope. Recent blood work is listed below. Allergies as of 08/17/2013 - Review Complete 08/17/2013 Allergen Reaction Noted ??? Anesthetics - amide type Shortness Of Breath ??? Anesthetics - ryan type Shortness Of Breath ??? Citalopram hydrobromide Shortness Of Breath ??? Codeine phosphate Palpitations ??? Epinephrine Palpitations ??? Escitalopram oxalate Shortness Of Breath ??? Fluoxetine hcl Shortness Of Breath and Palpitations ??? Lidocaine Palpitations ??? Penicillins Shortness Of Breath and Rash ??? Sulfa (sulfonamide antibiotics) Hives ??? Iodine-iodine containing Rash ??? Nsaids (non-steroidal anti-inflammatory drug) Palpitations and Other (See Comments) ??? Beta-blockers (beta-adrenergic blocking agts) ??? Ether Hives ??? Histamine Palpitations ??? Montelukast sodium Diarrhea and Nausea And Vomiting ??? Morphine sulfate ??? Unable to find (unclassified drug) 06/09/2012 Current Outpatient Rx Name Route Sig Dispense Refill ??? OXYCODONE 5 MG TABLET Oral Take 5 mg by mouth daily as needed. ??? HYDROCHLOROTHIAZIDE 25 MG TABLET Oral Take 1 tablet by mouth daily. 30 tablet ??? PREDNISONE 5 MG TABLET Oral Take 1.5 tablets by mouth daily. 45 tablet 1 ??? NOVOLIN R PENFILL INJ Injection Inject 0-10 Units as directed daily as needed. ??? METHOTREXATE SODIUM 2.5 MG TABLET Oral Take 6 tablets by mouth once a week. 78 tablet 3 ??? FOLIC ACID 1 MG TABLET Oral Take 2 tablets by mouth daily. May need earlier refill. Dose increase. 180 tablet 3 ??? VITAMIN D2 50,000 UNIT CAPSULE TAKE ONE CAPSULE BY MOUTH EVERY 30 DAYS 12 capsule 3 The requested Dispensed Quantity of 3 exceeded the ... ??? ASCORBIC ACID 1,000 MG TABLET Oral Take 1,000 mg by mouth as needed. ??? ASPIRIN 325 MG TABLET Oral Take 325 mg by mouth daily. ??? CALCIUM ORAL Oral Take 1,600 mg by mouth daily. ??? OMEGA 3 ORAL Oral Take 4,800 mg by mouth daily. ??? ROSUVASTATIN 5 MG TABLET Oral Take 5 mg by mouth daily. ??? DIAZEPAM 2 MG TABLET Oral Take 1 mg by mouth every 6 hours as needed. ??? DIGOXIN 125 MCG TABLET Oral Take 62.5 mcg by mouth daily. ??? ESOMEPRAZOLE MAGNESIUM 40 MG CAPSULE,DELAYED RELEASE Oral Take 40 mg by mouth 2 times daily. ??? LISINOPRIL 5 MG TABLET Oral Take 5 mg by mouth daily. ??? ACETAMINOPHEN 500 MG TABLET Oral Take 1,000 mg by mouth 3 times daily. Half tablet = 1MG ??? XOPENEX CONCENTRATE INHL Inhalation Inhale 1 Nebules into the lungs every 8 hours as needed. ??? SLOW-MAG ORAL Oral Take 99 mg by mouth 2 times daily. ??? VERAPAMIL 40 MG TABLET Oral 40 mg, PO, Three times daily ??? VITAMIN B-12 ORAL Oral ??? FLOVENT HFA 110 MCG/ACTUATION AEROSOL INHALER Inhalation 2 Puff(s), Inh, Twice daily ??? XOPENEX HFA 45 MCG/ACTUATION AEROSOL INHALER Inhalation 2 Puff(s), Inh, Q6H ??? PREDNISONE 1 MG TABLET Oral Take 2 tablets by mouth daily. Tapering WITH 5 mg tablets. 60 tablet 2 Physical Exam: Blood pressure 130/70, pulse 88, height 157.5 cm (5' 2), weight 84.913 kg (187 lb 3.2 oz), SpO2 97.00%. General: WD, WN overweight lady HEENT: Eyes: No conjunctival pallor Neck: No JVD, carotid bruits or lymphadenopathy Lungs: Clear to A+P Cor: RR, normal S1, S2. PMI not displaced. No murmur or gallop Ext: No edema, cyanosis or clubbing Neuro: physiologic Skin: Without rash or icterus Lab data:: I reviewed the OSL performed on 08/13/13. T235 he BMP was unremarkable except for a K+ of 3.2 and glucose of 128 TC 213 HDL 74 LDL 107 TG Hgb A1c 7.4 LFTs normal ECG today shows NSR, incRBBB, no changes from 2011. Cardiovascular Problem list and Plan of care: 1. CAD, severe, single vessel (LAD) with successful NAYAN (08/26), essentially asymptomatic. 2. Preserved LV systolic function 3. Lipid disorder, statin sensitive 4. History of SVT, no recurrences I talked with the patient about her jaw pain that clearly is consistent with a noncardiac mechanism.I tried to reassure her about his as anxiety over the symptom is a major factor for her. I offered to obtain another functional study to provide further reassurance if necessary to her but I did not advise it. After further discussion, she is comfortable continuing a conservative approach. She wonders if she should advance the dose of the rosuvastatin to 10mg daily. This is a reasonable idea but I suggested delaying any other changes to ensure that the jaw pain issue is not progressing. I reviewed the active treatment and ongoing surveillance for the cardiovascular problems as appropriate. I addressed the patient's questions. Non-Cardiac Problems: 1. GERD 2. DJD, including cervical spine disease with radiculopathy 3. Reactive airways disease, KALEY. 4. DM, Type II, insulin-requiring Cardiology follow up scheduled for: 1 year 25 minutes of this 30 minute visit was spent in face to face discussion with the patient regarding the diagnoses in the assessment and plan of care. documented in this encounter Plan of Treatment Upcoming Encounters Date Type Specialty Care Team Description 02/26/2023 Office Visit Rheumatology Toño Rodriguez PA [facility] [address] [place], [place] [address] (Wo rk) documented as of this encounter Procedures Procedure Name Priority Date/Time Associated Diagnosis Comme nts EKG 12-LEAD Routine 08/17/2013 11:47 AM CAD (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 Results for this EDT disease) procedure are in the Pain in lower jaw results se ction. documented in this encounter Results EKG 12 Lead (08/17/2013 11:47 AM EDT) Component Value Ref Range Test Analysis Performed Pathologis t Method Time At Signature Ventricular rate 80 BPM MUSE SYSTEM Atrial Rate 80 BPM MUSE SYSTEM P-R Interval 154 ms MUSE SYSTEM QRS Duration 118 ms MUSE SYSTEM Q-T Interval 396 ms MUSE SYSTEM QTC Calculated 456 ms MUSE SYSTEM (Bezet) Calculated P Preston 18 degrees MUSE SYSTEM Calculated R Preston 0 degrees MUSE SYSTEM Calculated T Preston -7 degrees MUSE SYSTEM INTERPRETATION Normal sinus rhythm MUSE SYSTEM Incomplete right bundle branch block Borderline ECG When compared with ECG of 14-JAN-2011 14:31, No significant change was found I personally reviewed the tracing and edited the fellows int erpretation Confirmed by fellow MD Luz Maria, Víctor Magallanes [id number]) on 08/18/2013 9:38:51 AM Confirmed by MD Jamila, Shalom ([id number]) on 08/18/2013 1:56:0 9 PM Specimen Anatomical Collection Method Collection Time Receive d Time (Source) Location / / Volume Laterality 08/17/2013 11:47 08/18/2013 1:56 AM EDT PM EDT Jeremy Keane MD ECG ORDERABLES Performing Organization Address City/State/ZIP Code Phon e Number MUSE SYSTEM documented in this encounter Visit Diagnoses Diagnosis CAD (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 disease) Coronary atherosclerosis of unspecified type of vessel, north fork or graft Pain in lower jaw Jaw pain Lipid disorder Unspecified disorder of lipoid metabolis m Coronary artery disease Coronary atherosclerosis of unspecified type of vessel, north fork or graft documented in this encounter Care Teams Heel Coverer Relationship Specialty Start Date End Date Jennifer Silva APRN PCP - General 09/10/10 07/01/17 documented as of this encounter
--- OUTSIDE RECORDS SUMMARY | 2022-07-08 09:36 | XMS_ITS | Encounter Summary ---
:1945 Author Organization [facility] [place] [address] Care Team Providers Name Role Phone [place] ArcticJennifer mckeon Kelsey GILL Primary Care Provider Encounter Details Date Type Department Care Team Description 07/31/2011 Orders Only Pulmonology at [facility] [place] Bryson Christensen, Dyspnea (Primary Dx) [facility] [place] [address] CRITICAL CARE-PULMONARY [place], [place] [address] Social History Tobacco Use Types [...] PA [facility] ER [address] [place], [place] [address] (Wo rk) documented as of this encounter Visit Diagnoses Diagnosis Dyspnea - Primary Other dyspnea and respiratory abnormalit y documented in this encounter Care Teams Umbrella Tipper Relationship Specialty Start Date End Date Jennifer Silva APRN PCP - General 09/10/10 07/01/17 documented as of this encounter
--- OUTSIDE RECORDS SUMMARY | 2022-07-08 09:36 | XMS_ITS | Encounter Summary ---
:1945 Author Organization [facility] [address] Care Team Providers Name Role Phone FaulkJennie mckeonhumphrey Cole APRN Primary Care Provider Reason for Visit Reason Onset Date Comments Other 02/18/2013 labs Encounter Details Date Type Department Care Team Description 02/18/2013 Telephone Rheumatology at [facility] Brittany Spivey RN Other (labs) [place] [address] Social History Tobacco Use Types Packs/Day Years Used Date Former Smoker 2 Quit: 07/19/19 77 Smokeless Tobacco: Never Used Alcohol Use Standard Drinks/Week Comments No 0 (1 standard drink = 0.6 oz pure alcoho l) Sex Assigned at Date Recorded Not on file documented as of this encounter Miscellaneous Notes Telephone Encounter - Brittany Spivey RN - 02/22/2013 1:41 PM EDT Francisca called back to say she is scheduled for a chest xray tomorrow and repeat labs and a pcp visit on . She spoke to an salesperson flowers doctor associated with her pcp and was prescribed doxycycline. She is not sure if it is helping, maybe a little. She will let us know outcome of her visit on Thursday. Telephone Encounter - Brittany Spivey RN - 02/22/2013 10:40 AM EDT Called Francisca to find out if she had been seen by her pcp. Left ms requesting a call back with an update. Telephone Encounter - Brittany Spivey RN - 02/18/2013 4:43 PM EDT Francisca is calling about her most recent labs. The CRP and WBC's have increased, while the sed rate has come down. She says she contacted her pcp about the possibility of a UTI, but they did not return her call. She asked if someone here would just prescribe something like doxycycline. Told her she should get her urine checked, so to contact her pcp again. She verbalized understanding. Told her I would forward information to Salma to see what her thoughts are on labs. She thanked curriculum writer for all the help. documented in this encounter Plan of Treatment Upcoming Encounters Date Type Specialty Care Team Description 02/26/2023 Office Visit Rheumatology Toño Rodriguez PA [facility] [address] [place], [place] [address] (Wo rk) documented as of this encounter Visit Diagnoses Not on filedocumented in this encounter Care Teams Education Administrative Assistant Relationship Specialty Start Date End Date Jennifer Silva APRN PCP - General 09/10/10 07/01/17 documented as of this encounter
--- OUTSIDE RECORDS SUMMARY | 2022-07-08 09:36 | XMS_ITS | Encounter Summary ---
:1945 Author Organization [facility] [place] [address] Care Team Providers Name Role Phone MarionJennifer mckeon Kelsey GILL Primary Care Provider Encounter Details Date Type Department Care Team Description 02/10/2013 Orders Only Rheumatology at [facility] Alisha Heredia, Psoriatic arthritis [facility] BANKING SERVICES OFFICER (Primary Dx) [place] [address] RHEUMATOLOGY DEP [place], [place] [address] Social History Tobacco Use Types [...] Rheumatology Toño Rodriguez PA [facility] ER [address] [place], [place] [address] (Wo rk) documented as of this encounter Results High Sensitivity CRP (02/17/2013 9:32 AM EDT) P athologist Signature CRP High Sens 35.1 mg/L [facility] Comment: Interpretations: 1) For cardiac risk assessment, two [...] and Cardiovascular Disease. ??Circulatio n 2003; 107:499-511 Melissa PM. ??Clinical applications of C- reactive protein for cardiovascular disease detection and prevention. ??Circ ulation 2003; 107:363-369 Specimen Anatomical Collection Method Collection Time Receive d Time (Source) Location / / Volume Laterality Blood specimen 02/17/2013 9:32 AM 013 9:50 (specimen) EDT AM EDT Resulting Agency Comment Spec In Lab Samina Gomes MD CHEMISTRY ORDERABLES Performing Organization Address City/State/ZIP Code Phon e Number [place] [phone] [facility] IntiguaENNIUM (ABNORMAL) Sedimentation rate (02/17/2013 9:32 AM EDT) P athologist Signature Sed Rate 30 (H) 0 - 20 CERNER mm/hr MILLENNIUM Specimen Anatomical Collection Method Collection Time Receive d Time (Source) Location / / Volume Laterality Blood specimen 02/17/2013 9:32 AM 013 9:50 (specimen) EDT AM EDT Resulting Agency Comment Spec In Lab Samina Gomes MD HEMATOLOGY ORDERABLES Performing Organization Address City/[facility]/[place]IP [place] [address] CERNER MILLENNIUM (ABNORMAL) CBC (with Diff) (02/17/2013 9:32 AM EDT) P athologist Signature WBC 15.7 (H) 4.0 - 10.0 CERNER x10(3)/mcL MILLENNIUM RBC 4.40 3.93 - CERNER 5.22 MILLENNIUM x10(6)/mcL Hemoglobin 12.8 11.2 - CERNER 15.7 gm/dL MILLENNIUM Hematocrit 39.6 34.0 - CERNER 45.0 % MILLENNIUM MCV 90.0 79.0 - CERNER 94.0 fL MILLENNIUM MCH 29.1 26.6 - CERNER 32.2 pg MILLENNIUM MCHC 32.3 32.0 - CERNER 36.5 gm/dL MILLENNIUM Platelets 318 145 - 370 CERNER x10(3)/mcL MILLENNIUM RDWSD 43.6 35.0 - CERNER 46.0 fL MILLENNIUM RDWCV 13.4 10.9 - CERNER 14.4 % MILLENNIUM MPV 10.9 9.0 - 12.0 CERNER fL MILLENNIUM Specimen Anatomical Collection Method Collection Time Receive d Time (Source) Location / / Volume Laterality Blood specimen 02/17/2013 9:32 AM 013 9:50 (specimen) EDT AM EDT Resulting Agency Comment Spec In Lab Samina Gomes MD HEMATOLOGY ORDERABLES Performing Organization Address City/[facility]/ZIP [place] [address] CERNER MILLENNIUM documented in this encounter Visit Diagnoses Diagnosis Psoriatic arthritis - Primary Psoriatic arthropathy documented in this encounter Care Teams Mold Finisher Relationship Specialty Start Date End Date Jennifer Silva APRN PCP - General 09/10/10 07/01/17 documented as of this encounter
--- OUTSIDE RECORDS SUMMARY | 2022-07-08 09:36 | XMS_ITS | Encounter Summary ---
:1945 Author Organization [facility] [place] [address] Care Team Providers Name Role Phone Jennifer Silva Kelsey GILL Primary Care Provider Reason for Visit Reason Comments Follow-up PFT's Encounter Details Date Type Department Care Team Description 08/20/2011 Office Visit Pulmonology at [facility] [place] Bryson Christensen, COPD ([facility] MD obstructive pulmonary [facility] disease) (Primary Dx) [place] [address] [address] [phone] CRITICAL CARE-PULMONARY [place], [place] [address] Social History Tobacco Use Types Packs/Day Years Used Date Former Smoker 2 Quit: 07/19/19 79 Smokeless Tobacco: Never Used Alcohol Use Standard Drinks/Week Comments No 0 (1 standard drink = 0.6 oz pure alcoho l) Sex Assigned at Date Recorded Not on file documented as of this encounter Last Filed Vital Signs Vital Sign Reading Time Taken Comments Blood Pressure 145/82 08/20/2011 10:38 AM EDT Pulse 80 08/20/2011 10:38 AM EDT Temperature - - Respiratory Rate - - Oxygen Saturation 96% 08/20/2011 10:38 AM EDT ra Inhaled Oxygen Concentration - - Weight - - Height - - Body Mass Index - - documented in this encounter Patient Instructions Patient InstructionsBryson Christensen MD - 08/22/2011 10:05 PM EDT As in A/P. documented in this encounter Progress Notes Valente Neff Jr., MD - 08/28/2011 3:57 PM EST I personally interviewed and examined Ms. Kong on 08/20/2011. I discussed my findings with Dr. Christensen, reviewed her documentation, and agree with the assessment and plan as she has outlined. Will continue current medications, and encourage gradually increased exercise. She would be an excellent candidate for pulmonary rehabilitation. Bryson Christensen MD - 08/20/2011 10:00 AM EDT OUTPATIENT PULMONARY CONSULTATION REASON FOR CONSULTATION: I was asked by Dr. Silva to evaluate this patient for restrictive lung disease. I have reviewed the available records, interviewed, and examined the patient. HISTORY OF PRESENT ILLNESS: Francisca is a 66-year-old female with multiple medical issues who presents for evaluation of possible restrictive lung disease secondary to a history of methotrexate use. Patient was previously followed by Dr. Geneva Bianchi of our pulmonary section. After Dr. Bianchi left [facility], she was last evaluated in [address] Jorge for a diagnosis of asthma versus chronic obstructive pulmonary disease. Patient states that she has multiple drug allergies and that Dr. Bianchi indicated that she should not take any long acting beta agonists including formoterol and salmeterol for her obstructive disease. She also reports being advised to avoid tiotropium. As a result, she is present ly maintained on inhaled fluticasone twice daily and levalbuterol as-needed, which she takes, on average, twice daily. Patient does reports incomplete adherence to her inhaled steroid therapy, occasionally skipping doses in the summer, although she reports that the inhaled steroid is actually quite helpful to her breathing. She reports dyspnea with inclines and on flat ground, although her exercise tolerance is also limited by arthritis. She presently walks twice weekly on her treadmill and is out of breath by the end of her workout. She cough occasionally, but this is not a prominent symptom. Her cough is typically not productive of sputum. She wheezes 'all the time.' She acknowledges rhinorrhea and post-nasal drip and reports significant environmental allergies. Triggers include her woodstove and perfumes. Her breathing is better in the cold. Allergy testing in the past (2005) was negative. Patient states that she is diagnosed with either bronchitis or pneumonia at least once yearly. She has GERD that is not well-controlled with a proton-pump inhibitor, although she also admits incomplete adherence with this therapy secondary to concerns regarding osteoporosis. Otherwise, she has jaw painwith exertion reminiscent of her angina. She states that Dr. Keane is considering a repeat stress test for this issue. PAST MEDICAL HISTORY: # COPD -PFTs 08/2011: FEV1 1.46(<68%); FVC 2.05(<73%); FEV1/FVC 71(94%); TLC 3.7(<78%); RV 1.48(72%); RV/TLC 40(93%); post-bronchodilator, there was no significant change. DLCO 21.51(100%). TLC -PFTs 03/2011: FEV1 1.46(<68%); FVC 2.05(<73%); FEV1/FVC 71(94%); TLC 3.7(<78%); RV 1.48(72%); RV/TLC 40(93%); post-bronchodilator, there was no significant change. DLCO 21.51(100%). -CT thorax 05/2007: No infiltrates, masses, pleural effusions, interstitial disease, or lymphadenopathy seen. Small areas of slightly hazy increased density at the medial lower lobes. -Allergy scratch testing negative 12/2005 # KALEY -BiPAP nightly 20/ # Coronary artery disease -Cardiac catheterization 08/2008: R dominant. LM normal. LAD 30%-prox 2, 90%-mid 1 (3.0 x 18mm [place] MX2). LCx normal. RCA mild diffuse. -Echocardiogram 01/2009: LVEF 65%. LV and RV normal. ECG demonstrated RBBB. During stress, exercise termination secondary to fatigue and claudication. Maximum heart rate achieved was 135, which is 87% of the maximum(155 beats/min). Chest discomfort noted: 4/10 throat pain and 2/10 jaw pain at peak exercise, throat pain resolved rapidly in recovery, jaw pain by 8 min recovery. Blood pressure response was hypertensive (222/102). No significant ST segment changes. Global left ventricular systolic function hyperdynamic. No left ventricular segmental wall motion abnormalities. No echocardiographic evidence of myocardial ischemia at this level of stress. PASP 30 mmHg. # Paroxysmal SVT # Hypertension # Hyperlipidemia # Irritable bowel syndrome # GERD # Esophageal diverticula # Diverticulosis # Hiatal hernia # DM2 # Rheumatoid arthritis -Discontinued MTX 2006, weaned off steroids 2006 # Psoriatic arthritis -Refused embrel # Osteoporosis # Fibromyalgia # Macular degeneration # Cataracts, s/p extraction 05/2010 # Psoriasis with psoriatic arthritis # Depression # Hx alcohol abuse # Hx tobacco abuse # s/p Tubal ligation # s/p R CTS repair # s/p Tonsillectomy and adenoidectomy # s/p D&C x 3 REVIEW OF SYSTEMS: GENERAL: Denies fevers, chills, sweats, fatigue, anorexia. Positive for weight gain. SKIN: Denies itching, rashes, sores, lumps, changing moles. HEENT: Denies trauma, headache, visual changes, tearing, tinnitus, earache, sneezing, allergies, epistaxis, bleeding gums, hoarseness, sore throat, neck swelling. Positive for rhinorrhea, post-nasal drip. RESPIRATORY: Denies dyspnea at rest, orthopnea, paroxysmal nocturnal dyspnea, sputum production, hemoptysis, tuberculosis exposure. Positive for dyspnea on exertion, wheeze, cough. CARDIOVASCULAR: Denies chest pain, chest pressure, palpitations, edema, claudication. Positive for jaw pain. GASTROINTESTINAL: Denies abdominal pain, nausea, vomiting, constipation, diarrhea, dysphagia, odynophagia, hematemesis, hematochezia, melena. Positive for reflux. GENITOURINARY: Denies frequency, urgency, dysuria, polyuria, nocturia, incontinence, discharge, sores. MUSCULOSKELETAL: Denies weakness, redness. Positive for joint stiffness, joint instability, swelling, arthralgias, myalgias. NEUROLOGIC: Denies numbness, tingling, tremors, weakness, paralysis, loss of consciousness, memory loss, seizures, incoordination. ENDOCRINE: Denies heat intolerance, cold intolerance, excessive sweating, polyuria, polydipsia, polyphagia. PSYCHIATRIC: Denies depressed mood, anxiety FAMILY HISTORY: Father at age 84 of a broken heart a few weeks after her mother . Mother of heart disease, kidney disease, and diabetes -- took herself off dialysis -- at age 83. Sister at . Brothers alive at ages 57 and 67, healthy. Son alive at age 47 with osteochondritis. Daughter alive at age 42 with asthma, healthy. Son alive at age 41 with muscular dystrophy. Daughter alive at age 40. Daughter at one week old of 'deformed lungs.' SOCIAL HISTORY: Quit smoking 1977 after 17 years, two packs daily. Denies alcohol, but previously a heavy drinker. Denies illicit drug use. Lives with her boyfriend, . 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 Denies exposures to asbestos, silica, radon, chemicals. She thinks she has been exposed to 'black mold' both at work in the past and now at home. PHYSICAL EXAMINATION: HR-80 BP-145/82 RR-14 SpO2-96%RA GEN-Appears well. HEENT-NCAT, EOMI, PERRL. Ears clear with glistening TMs bilaterally. Neck-Trachea midline, no thyromegaly. Lymph-No cervical, submandibular, or supraclavicular LAD. CV-Reg reg rhythm nl S1 S2 no m/r/g. RESP-Clear bilaterally. ABD-Soft obese nt nd +BS no HSM. EXTR-No c/c/e, Dp 2+ b/l. Skin-No rash. MEDICATIONS: Current outpatient prescriptions ordered prior to encounter Medication Sig Dispense Refill ??? OXYcodone-acetaminophen (PERCOCET) 5-325 mg per tablet Take 1 tablet by mouth as needed. ??? ergocalciferol (ERGOCALCIFEROL) 50,000 unit capsule Take 1 capsule by mouth once a week. 9 capsule 0 ??? atorvastatin (LIPITOR) 20 mg tablet Take 20 mg by mouth daily. ??? diaZEPam (VALIUM) 2 mg tablet Take 1 mg by mouth every 6 hours as needed. ??? digoxin (LANOXIN) 125 mcg tablet Take 62.5 mcg by mouth daily. ??? esomeprazole (NEXIUM) 40 mg capsule Take 40 mg by mouth 2 times daily. ??? lisinopril (PRINIVIL;ZESTRIL) 5 mg tablet Take 5 mg by mouth daily. ??? insulin aspart (NOVOLOG FLEXPEN) 100 unit/mL pen injection Inject subcutaneously 3 times daily (with meals). Sliding scale when blood sugars are over 200. ??? methotrexate 2.5 mg tablet Take 8 tablets by mouth once a week. 52 tablet 3 ??? acetaminophen (TYLENOL EXTRA STRENGTH) 500 mg tablet Take 1,000 mg by mouth 3 times daily. ??? LEVALBUTEROL HCL (XOPENEX CONCENTRATE INHL) Inhale 1 Nebules into the lungs every 8 hours as needed. ??? MAGNESIUM CHLORIDE (SLOW-MAG ORAL) Take 99 mg by mouth 2 times daily. ??? Calcipotriene (DOVONEX) 0.005 % Crea 1 Appl(s), Top, 2x daily -- ??? verapamil (CALAN) 40 mg tablet 40 mg, PO, Three times daily ??? OMEGA-3 FATTY ACIDS ORAL ??? CYANOCOBALAMIN, VITAMIN B-12, (VITAMIN B-12 ORAL) ??? folic acid (FOLVITE) 1 mg tablet 1 mg PO Once daily ??? fluticasone (FLOVENT HFA) 110 mcg/Actuation inhaler 2 Puff(s), Inh, Twice daily ??? Levalbuterol Tartrate (XOPENEX HFA) 45 mcg/Actuation inhaler 2 Puff(s), Inh, Q6H ??? ascorbic acid (VITAMIN C) 1,000 mg tablet ??? lidocaine (LIDODERM) 5 %(700 mg/patch) 1 Patch(es), Top, 12 hrs on/12 hrs off ??? aspirin (LIU ASPIRIN) 325 mg tablet ??? Calcium Carbonate (TUMS ULTRA) 400 mg (1,000 mg) chewable tablet ??? clobetasol (TEMOVATE) 0.05 % cream 1 Appl(s), Top, 2 x daily SAT/SUN DIAGNOSTICS: I reviewed the chest CT as stated above. LABS: None. IMPRESSION: 66-year-old woman with dyspnea previously diagnosed as asthma. Her pulmonary function tests today do not reveal a reduced FEV1, although the number is just at the lower end of normal. The FVC is decreased, with a normal ratio. The TLC is normal. A normal TLC in the setting of a decreased FEV1 and FVC is suggestive of obstruction, per ATS criteria. Additionally, her response to bronchodilators is suggestive of a reversibility. She is hesitant to add any additional medications to her regimen given her extensive allergic history. I am concerned that her poor reflux control is contributory to her current symptoms. Additionally, Idiscussed with her that she appears very deconditioned with acknowledged weight gain, all of which may exacerbate her breathing issues. With her fibromyalgia and extensive trauma history, she may experience a heightened sense of dyspnea than would be expected for her degree of disease. I see no evidence of restrictive disease on imaging, pulmonary function tests, or examination, and thus I do not think further investigation for methotrexate lung disease or other interstitial process is necessary. RECOMMENDATIONS: -Continue inhaled fluticasone. -Use levalbuterol as needed. -Exercise as able; pulmonary rehabilitation is an option if she would like to refer herself. -Reflux control and possible EGD for uncontrolled GERD -- will copy to PCP. Thank you for this interesting consultation. Bryson Christensen MD Fellow, Pulmonary & Critical Care Medicine documented in this encounter Plan of Treatment Upcoming Encounters Date Type Specialty Care Team Description 02/26/2023 Office Visit Rheumatology Toño Rodriguez PA [facility] RHEUMATOLOGY [place], [place] [address] (Wo rk) documented as of this encounter Visit Diagnoses Diagnosis COPD (chronic obstructive pulmonary dise ase) - Primary Chronic airway obstruction, not elsewher e classified documented in this encounter Care Teams Military Communications Specialist Relationship Specialty Start Date End Date Jennifer Silva APRN PCP - General 09/10/10 07/01/17 documented as of this encounter
--- OUTSIDE RECORDS SUMMARY | 2022-07-08 09:36 | XMS_ITS | Encounter Summary ---
:1945 Author Organization [facility] Address [address] [place] [address] Care Team Providers Name Role Phone Jennifer Silva JAIRO Primary Care Provider Reason for Visit Reason Comments Macular Degeneration pt says VA OS is blurrier, s ays she is still driving Encounter Details Date Type Department Care Team Description 02/10/2012 Follow-Up Ophthalmology at [facility] Ella Dominguez CNVM (choroidal [facility] Jade Burleson MD neovascular membrane) [place] [address] [facility] (Primary Dx) [phone] OPHTHALMOLOGY DE PT. 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 No fluid today and vision is stable. Plan: No injection. documented in this encounter Nursing Notes 02/10/2012 9:45 AM EDT >> ELLA MCDUFFIE MD [facility] Feb 10, 2012 11:16 AM Feels vision slightly more blurry OS. SUAD NANCE >> NONA DANIELLE LPN francesco Feb 10, 2012 9:58 AM Description:Patient presents with: Macular Degeneration - pt says [place] OS is blurrier, says she is still driving Location: left eye Duration years Rapidity of Onset:gradual Severity: 5 Condition:WORSENING Pain:0 Modifying Factors: Lucentis inj Associated Symptoms: blur documented in this encounter Plan of Treatment Upcoming Encounters Date Type Specialty Care Team Description 02/26/2023 Office Visit Rheumatology Toño Rodriguez PA [facility] RHEUMATOLOGY [place] [address] (Wo rk) documented as of this encounter Procedures Procedure Name Priority Date/Time Associated Diagnosis Comme nts OCT RETINA - OS - LEFT Routine 02/10/2012 11:15 AM CNVM (choro idal EYE EDT neovascular membrane) documented in this encounter Results OCT [id number] EYE (02/10/2012 11:15 AM EDT) Anatomical Region Laterality Modality Other Ella Mcduffie MD OPHTHALMOLOGY SERVICES ORDER KEKE documented in this encounter Visit Diagnoses Diagnosis 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
--- OUTSIDE RECORDS SUMMARY | 2022-07-08 09:36 | XMS_ITS | Encounter Summary ---
:1945 Author Organization [facility] [place] [address] Care Team Providers Name Role Phone Jennifer Silva APRN Primary Care Provider Reason for Visit Reason Comments Medication Refill Encounter Details Date Type Department Care Team Description 08/08/2012 Refill Rheumatology at [facility] [place] Alisha Heredia DJD (degenerative joint [facility] D rive TIP STRETCHER disease) (Primary Dx) [place] [address] [facility] [phone] RHEUMATOLOGY [place], [place] [address] (Wo rk) Social History Tobacco [...] Toño Rodriguez PA [facility] RHEUMATOLOGY [place], [place] [address] (Wo rk) documented as of this encounter Visit Diagnoses Diagnosis DJD (degenerative joint disease) - Prima ry Osteoarthrosis, unspecified whether gene ralized or localized, unspecified site documented in this encounter Care Teams Supervisor Agricultural Education Relationship Specialty Start Date End Date Jennifer Silva APRN PCP - General 09/10/10 07/01/17 documented as of this encounter
--- OUTSIDE RECORDS SUMMARY | 2022-07-08 09:36 | XMS_ITS | Encounter Summary ---
:1945 Author Organization [facility] [place] [address] Care Team Providers Name Role Phone BowmanJennie mckeonhumphrey Cole APRN Primary Care Provider Reason for Visit Reason Comments Macular Degeneration 6 months check AMD OU (endst age OD) Encounter Details Date Type Department Care Team Description 02/17/2013 Follow-Up Ophthalmology at [facility] Ella Dominguez AMD (age related [facility] Jade Burleson MD macular degeneration) [place] [address] [facility] (Primary Dx) [phone] OPHTHALMOLOGY DE PT. [place], [place] [address] (Wo rk) Social History Tobacco Use Types Packs/Day Years Used Date Former Smoker 2 Quit: 07/19/19 77 Smokeless Tobacco: Never Used Alcohol Use Standard Drinks/Week Comments No 0 (1 standard drink = 0.6 oz pure alcoho l) Sex Assigned at Date Recorded Not on file documented as of this encounter Progress Notes Ella Mcduffie MD - 02/17/2013 5:52 PM EDT OU AMD: OD end stage [...] [facility] RHEUMATOLOGY [place], [place] [address] (Wo rk) documented as of this encounter Procedures Procedure Name Priority Date/Time Associated Diagnosis Comme nts OCT RETINA - OS - LEFT Routine 02/17/2013 5:53 PM EDT AMD (age related EYE macular degeneration) documented in this encounter Results OCT [id number] EYE (02/17/2013 5:53 PM EDT) Anatomical Region Laterality Modality Other Specimen (Source) Anatomical Location Collection Method / Collectio n Time Received Time / Laterality Volume Ella Mcduffie MD OPHTHALMOLOGY SERVICES ORDER KEKE documented in this encounter Visit Diagnoses Diagnosis AMD (age related macular degeneration) - Primary Macular degeneration (senile) of retina, unspecified documented in this encounter Care Teams Stenciling Machine Tender Relationship Specialty Start Date End Date Jennifer Silva APRN PCP - General 09/10/10 07/01/17 documented as of this encounter
--- OUTSIDE RECORDS SUMMARY | 2022-07-08 09:36 | XMS_ITS | Encounter Summary ---
:1945 [place] [address] Care Team Providers Name Role Phone Jennifer Silva Kelsey GILL Primary Care Provider Reason for Visit Reason Onset Date Comments Medication Refill 05/12/2011 Encounter Details Date Type Department Care Team Description 05/12/2011 Refill [place] [facility] Andrés Tuttle MD DJD (degenerative joint [facility] D rive [facility] disease) [place] [address] RHEUMATOLOGY DEP . [place], [place] [address] (Wo rk) Social History Tobacco [...] Rheumatology Toño Rodriguez PA [facility] [address] MUNOZ [place], [place] [address] (Wo rk) documented as of this encounter Visit Diagnoses Diagnosis DJD (degenerative joint disease) Osteoarthrosis, unspecified whether gene ralized or localized, unspecified site documented in this encounter Care Teams Trimmer Climber Relationship Specialty Start Date End Date Jennifer Silva APRN PCP - General 09/10/10 07/01/17 documented as of this encounter
--- OUTSIDE RECORDS SUMMARY | 2022-07-08 09:36 | XMS_ITS | Encounter Summary ---
:1945 Author Organization [facility] Address [facility] [place] [place] [address] Care Team Providers Name Role Phone Jennifer Silva APRN Primary Care Provider Reason for Visit Reason Onset Date Comments Labs Only 07/19/2012 Encounter Details Date Type Department Care Team Description 07/19/2012 Telephone Endocrinology at [facility] C Edna Mortensen APRN Labs [place] [address] ENDOCRINOLOGY DEPT. [phone] [place], [place] [address] (Wo rk) Social History Tobacco Use Types Packs/Day Years Used Date Former Smoker 2 Quit: 07/19/19 77 Smokeless Tobacco: Never Used Alcohol Use Standard Drinks/Week Comments No 0 (1 standard drink = 0.6 oz pure alcoho l) Sex Assigned at Date Recorded Not on file documented as of this encounter Miscellaneous Notes Telephone Encounter - Edna Mortensen APRN - 07/19/2012 1:23 PM EDT lab documented in this encounter Plan of Treatment Upcoming Encounters Date Type Specialty Care Team Description 02/26/2023 Office Visit Rheumatology Toño Rodriguez PA [facility] [place], [place] [address] (Wo rk) documented as of this encounter Results (ABNORMAL) Hemoglobin A1c (07/27/2012 10:24 AM EDT) Analysis Performed At [facility] Time Signature Hemoglobin A1C 7.1 (H) 4.3 - 6.1 CERNER % MILLENNIUM Est Avg Gluc 157 mg/dL [facility] Comment: eAG equivalents for HbA1c percentages: HbA1c(%) ?eAG(mg/dL) 6.0 ?126 6.5 ?140 7.0 ?154 7.5 ?169 8.0 ?183 8.5 ?197 9.0 ?212 9.5 ?226 10.0 ? 240 Limitations: The eAG calculation has not been validated on women, individuals below 18 years old and above 70 years old, and individuals with hemoglobinopathies. Additional resources are available on e ADA website: ??http://professional.diabetes.org/gluc osecalculator.aspx Reference: Jose Miguel BRAXTON, Moraima J, Ximena R, et al. ??Tr anslating the A1C assay into estimated average glucose values. ??Diabetes Care 2008:31(8):7348-1793. Specimen Anatomical Collection Method Collection Time Receive d Time (Source) Location / / Volume Laterality Blood specimen 07/27/2012 10:24 2 (specimen) AM EDT 10:28 AM EDT Resulting Agency Comment Spec In Lab Andrés Mary MD CHEMISTRY ORDERABLES Performing Organization Address City/State/[place] [address] [facility] documented in this encounter Visit Diagnoses Diagnosis Diabetes mellitus - Primary Type II or unspecified type diabetes kate litus without mention of complication, not stated as uncontrolled documented in this encounter Care Teams Foam Dispenser Relationship Specialty Start Date End Date Jennifer Silva APRN PCP - General 09/10/10 07/01/17 documented as of this encounter
--- OUTSIDE RECORDS SUMMARY | 2022-07-08 09:36 | XMS_ITS | Encounter Summary ---
:1945 Author Organization [facility] [place] [address] Care Team Providers Name Role Phone Jennifer Silva Kelsey GILL Primary Care Provider Reason for Visit Reason Comments Abnormal PFT Encounter Details Date Type Department Care Team Description 08/20/2011 Office Visit Pulmonology at [facility] [place] SCHEDULE 1, PFT Abnormal PFTs [facility] Valente Neff Jr., MD [facility] [place] [address] (Primary Dx) Bryson Reinoso MD [facility] [place] [address] [place] [address] Social History Tobacco Use Types Packs/Day Years Used Date Former Smoker 2 Quit: 07/19/19 77 Smokeless Tobacco: Never Used Alcohol Use Standard Drinks/Week Comments No 0 (1 standard drink = 0.6 oz pure alcoho l) Sex Assigned at Date Recorded Not on file documented as of this encounter Progress Notes Valente Neff Jr., MD - 08/22/2011 12:47 PM EDT Please refer to the outpatient consult note written by Dr. Christensen for full details. documented in this encounter Plan of Treatment Upcoming Encounters Date Type Specialty Care Team Description 02/26/2023 Office Visit Rheumatology Toño Rodriguez PA [facility] RHEUMATOLOGY [place], [place] [address] (Wo rk) documented as of this encounter Visit Diagnoses Diagnosis Abnormal PFTs - Primary Nonspecific abnormal results of pulmonar y system function study documented in this encounter Care Teams Field Foreman Relationship Specialty Start Date End Date Jennifer Silva APRN PCP - General 09/10/10 07/01/17 documented as of this encounter
--- OUTSIDE RECORDS SUMMARY | 2022-07-08 09:36 | XMS_ITS | Encounter Summary ---
:1945 Author Organization [facility] Address [place] [address] Care Team Providers Name Role Phone Savannah Ledesma APRN Primary Care Provider Reason for Visit Reason Comments Arthritis Encounter Details Date Type Department Care Team Description 05/19/2013 [place] [facility] [place]isha Heredia, Eustachian tube dysfunction (Primary Dx); [facility] Jade mijares APRN Chronic steroid use; [place] [address] [facility] Shoulder pain; [phone] Hip pain; RHEUMATOLOGY DEP T. Encounter for long-term (current) use of other medications [place], [place] [address] Social History Tobacco Use Types Packs/Day Years Used Date Former Smoker 2 Quit: 07/19/19 77 Smokeless Tobacco: Never Used Alcohol Use Standard Drinks/Week Comments No 0 (1 standard drink = 0.6 oz pure alcoho l) Sex Assigned at Date Recorded Not on file documented as of this encounter Last Filed Vital Signs Vital Sign Reading Time Taken Comments Blood Pressure 123/78 05/19/2013 10:26 AM EDT Pulse 75 05/19/2013 10:26 AM EDT Temperature 37.2 ??C (98.9 ??F) 05/19/2013 10:26 AM EDT Respiratory Rate - - Oxygen Saturation 98% 05/19/2013 10:26 AM EDT Inhaled Oxygen Concentration - - Weight 86.2 kg (190 lb) 05/19/2013 10:26 AM EDT Height 157.5 cm (5' 2) 05/19/2013 10:26 AM EDT Body Mass Index 34.75 05/19/2013 10:26 AM EDT documented in this encounter Progress Notes Alisha Heredia, FULL FASHIONED GARMENT KNITTER - 05/19/2013 11:03 AM EDT Francisca Kong is a 68 y.o. [...] as follows: Updates in BOLD italics. ?? Resume prednisone 7.5 mg po daily; ongoing calcium and vitamin D dietary intake and supplementation. Ongoing prednisone 7.5 mg po daily. Reports PCP advises very slow taper, when initiated. Reports no joint swelling. (+) pain in hips and knees. Trying to be active. Participating in Cardiac Rehab. Treated for ear infection in right ear. Erythromycin 333 mg TID x 4 days; little improvement. Stopped due to adverse effect - dizziness. (+) ongoing pressure without fever, chills, cough. Flonase in use. ?? Continue methotrexate 15 mg po weekly. Ongoing without AE. ?? Increase folic acid to 2 mg po daily. Ongoing - no oral ulcers. ?? Repeat CBC, ESR and CRP -> at follow up. Provides labs from OSH and documents from last OV - PCP. ?? Precautions associated with DMARD - monitor for signs of infection. Reinforced instructions. ?? Reassess inflammatory markers at follow up. Most recent labs 05/12/2013 ESR 15 (rr 0-30mm/hr); CRP 0.43 (rr 0.0-0.3mg/dL. PLT 221 Reports HgbA1c improved at last OV. When previously seen, reported throughout the winter, pain in upper body [...] active arthritis and no evidence of fracture. SAVANNAH LEDESMA, APRNinitiated steroids in October 2012 - 20 mg x 2 weeks, improvement on this dose; tapered to 10 mg x 4 weeks; less benefit -> more pain in muscles and joints; then gradual taper of 1 mg/week. Off x 1 day when seen for evaluation.. Using percocet during this interval. Ultram (RX) not filled. Using ES tylenol during the day; helps a lot. Percocet at night. Hips, knees, ankles tight in previou 24 h. (-) joint swelling. (+) joint stiffness in shoulders, elbows, wrist and hands all day long. No bloodwork completed. Wonders if this could be fibromyalgia. Ongoing follow up with Dr. 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 Sees Dr. Keane annually for 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 disease s/p single vessel stent Denies recurrent iinfection. Reports no other changes in medical, surgical, or social history. Is upto date on routine health maintenance and screening exams. Plan annual influenza vaccine. ROS: GEN: (-) fever; (-) night sweats; (-) chills; (+) weight gain; (+) fatigue HEENT: (-) dry [...] Refill ??? methotrexate 2.5 mg tablet Take 6 tablets by mouth once a week. 78 tablet 3 ??? folic acid (FOLVITE) 1 mg tablet Take 2 tablets by mouth daily. May need earlier refill. Dose increase. 180 tablet 3 ??? predniSONE (DELTASONE) 5 mg tablet Take 1.5 tablets by mouth daily. 45 tablet 1 ??? VITAMIN D 50,000 unit capsule TAKE ONE CAPSULE BY MOUTH EVERY 30 DAYS 12 capsule 3 ??? ascorbic acid (VITAMIN C) 1,000 [...] mcg/Actuation inhaler 2 Puff(s), Inh, Q6H ??? hydrochlorothiazide (HYDRODIURIL) 25 mg tablet Take 12.5 mg by mouth daily. Allergies Allergen Reactions ??? Anesthetics - Amide [...] Drug) All Antihistamines. PHYSICAL EXAMINATION: Filed Vitals: 05/19/13 1026 BP: 123/78 Pulse: 75 Temp: 37.2 ??C (98.9 ??F) TempSrc: Oral Height: 157.5 cm (5' 2) Weight: 86.183 kg (190 lb) SpO2: 98% Constitutional: Pleasant female sitting comfortably. HEENT: Normocephalic; (-) scleral injection, oral mucous membranes moist and intact. TMs intact, right retracted, injected without effusion Neck: Neck supple; (-) lymphadenopathy (-) thyromegaly [...] and muscle pain, psoriasis, osteoarthritis, chronic steroid use; eustachian tube dysfunction. PLAN/RECOMMENDATIONS: ?? Continue prednisone 7.5 mg po daily; ongoing calcium and vitamin D dietary intake and supplementation. ?? Continue methotrexate 15 mg po weekly and folic acid to 2 mg po daily. ?? Repeat CBC, ESR and CRP -> at follow up. ?? Precautions associated with DMARD - monitor for signs of infection. ?? Reassess inflammatory markers at follow up. ?? Continue flonase and trial zyrtec; no OTC decongestants. ?? Follow up in 6 weeks, sooner for concerns, questions or increased signs or symptoms. documented in this encounter Plan of Treatment Upcoming Encounters Date Type Specialty Care Team Description 02/26/2023 Office Visit Rheumatology Toño Rodriguez PA [facility] RHEUMATOLOGY [place], [place] [address] (Wo rk) documented as of this encounter Visit Diagnoses Diagnosis Eustachian tube dysfunction - Primary Dysfunction of Eustachian tube Chronic steroid use Encounter for long-term (current) use of steroids Shoulder pain Pain in joint, shoulder region Hip pain Pain in joint, pelvic region and thigh Encounter for long-term (current) use of other medications documented in this encounter Care Teams Clinical Services Professional Relationship Specialty Start Date End Date Savannah Ledesma APRN PCP - General 09/10/10 07/01/17 documented as of this encounter
--- OUTSIDE RECORDS SUMMARY | 2022-07-08 09:36 | XMS_ITS | Encounter Summary ---
:1945 Author Organization [facility] Address [address] [place] [address] Care Team Providers Name Role Phone Savannah Ledesma APRN Primary Care Provider Encounter Details Date Type Department Care Team Description 06/29/2013 Follow[place]Up [place] [facility] [place] Alisha Heredia, Joint pain (Primary Dx); [facility] JAIRO Muscle ache; [address] [facility] Chronic steroid use; [place] [address] Osteoarthritis [phone] RHEUMATOLOGY DEPT. [place], [place] [address] Social History Tobacco Use Types Packs/Day Years Used Date Former Smoker 2 Quit: 07/19/19 77 Smokeless Tobacco: Never Used Alcohol Use Standard Drinks/Week Comments No 0 (1 standard drink = 0.6 oz pure alcoho l) Sex Assigned at Date Recorded Not on file documented as of this encounter Last Filed Vital Signs Vital Sign Reading Time Taken Comments Blood Pressure - - Pulse 84 06/29/2013 1:35 PM EDT Temperature 36.9 ??C (98.4 ??F) 06/29/2013 1:35 PM EDT Respiratory Rate - - Oxygen Saturation 95% 06/29/2013 1:35 PM EDT Inhaled Oxygen Concentration - - Weight 87.1 kg (192 lb) 06/29/2013 1:35 PM EDT Height 157.5 cm (5' 2) 06/29/2013 1:35 PM EDT Body Mass Index 35.12 06/29/2013 1:35 PM EDT documented in this encounter Progress Notes Alisha Heredia, PHYSICIAN'S ASSISTANT - 06/29/2013 3:07 PM EDT Francisca Kong is a 68 [...] Updates in BOLD italics. ?? Continue prednisone 7.5 mg po daily; ongoing calcium and vitamin D dietary intake and supplementation. Continues prednisone 7.5 mg po - daily. Reports concerns about tapering quickly as prior taper was unbearable. Notes no joint swelling, generalized stiffness and shoulder pain. Using pain med about three times daily, with benefit. Continues cardiac rehabilitation, enjoys remainnig active. Reports recent labs through PCP's office. ?? Reports son with diagnosis of Stiff Person Syndrome. ?? Continue methotrexate 15 mg po weekly and folic acid to 2 mg po daily. Ongoing without interruption. ?? Repeat CBC, ESR and CRP -> at follow up. Labs not available for review. ?? Precautions associated with DMARD - monitor for signs of infection. Ongoing recommendation. ?? Reassess inflammatory markers at follow up. Noted - OSH labs requested. ?? Continue flonase and trial zyrtec; no OTC decongestants. No action. ?? Most recent labs 05/12/2013 ESR 15 (rr 0-30mm/hr); CRP 0.43 (rr 0.0-0.3mg/dL. PLT 221 To be seen later today in ENDO. When previously seen, reported throughout the winter, [...] fibromyalgia. Ongoing follow up with Dr. Brock ([facility]) [...] Prescriptions on File Prior to Visit Medication Status Sig Dispense Refill ??? INSULIN REGULAR, HUMAN (NOVOLIN R PENFILL INJ) Active Inject 0-10 Units as directed daily as needed. ??? methotrexate 2.5 mg tablet Active Take 6 tablets by mouth once a week. 78 tablet 3 ??? folic acid (FOLVITE) 1 mg tablet Active Take 2 tablets by mouth daily. May need earlier refill. Dose increase. 180 tablet 3 ??? VITAMIN D 50,000 unit capsule Active TAKE ONE CAPSULE BY MOUTH EVERY 30 DAYS 12 capsule 3 ??? ascorbic acid (VITAMIN C) 1,000 mg tablet Active Take 1,000 mg by mouth as needed. ??? aspirin 325 mg tablet Active Take 325 mg by mouth daily. ??? CALCIUM ORAL Active Take 1,600 mg by mouth daily. ??? OMEGA-3S/DHA/EPA/FISH OIL (OMEGA 3 ORAL) Active Take 4,800 mg by mouth daily. ??? rosuvastatin (CRESTOR) 5 mg tablet Active Take 5 mg by mouth daily. ??? insulin regular human (NOVOLIN R) 100 unit/mL vial injection Discontinued Inject subcutaneously See Admin Instructions. SLIDING SCALE DIRECTED ??? OXYcodone-acetaminophen (PERCOCET) 5-325 mg per tablet Active Take 1 tablet by mouth as needed. ??? diaZEPam (VALIUM) 2 mg tablet Active Take 1 mg by mouth every 6 hours as needed. ??? digoxin (LANOXIN) 125 mcg tablet Active Take 62.5 mcg by mouth daily. ??? esomeprazole (NEXIUM) 40 mg capsule Active Take 40 mg by mouth 2 times daily. ??? lisinopril (PRINIVIL;ZESTRIL) 5 mg tablet Active Take 5 mg by mouth daily. ??? acetaminophen (TYLENOL EXTRA STRENGTH) 500 mg tablet Active Take 1,000 mg by mouth 3 times daily. Half tablet = 1MG ??? LEVALBUTEROL HCL (XOPENEX CONCENTRATE INHL) Active Inhale 1 Nebules into the lungs every 8 hoursas needed. ??? MAGNESIUM CHLORIDE (SLOW-MAG ORAL) Active Take 99 mg by mouth 2 times daily. ??? verapamil (CALAN) 40 mg tablet Active 40 mg, PO, Three times daily ??? CYANOCOBALAMIN, VITAMIN B-12, (VITAMIN B-12 ORAL) Active ??? fluticasone (FLOVENT HFA) 110 mcg/Actuation inhaler Active 2 Puff(s), Inh, Twice daily ??? Levalbuterol Tartrate (XOPENEX HFA) 45 mcg/Actuation inhaler Active 2 Puff(s), Inh, Q6H Allergies Allergen Reactions [...] Drug) All Antihistamines. PHYSICAL EXAMINATION: Filed Vitals: 06/29/13 1335 Pulse: 84 Temp: 36.9 ??C (98.4 ??F) Height: 157.5 cm (5' 2) Weight: 87.091 kg (192 lb) SpO2: 95% Constitutional: Pleasant female sitting comfortably. HEENT: Normocephalic; [...] taper Prednisone Date Even Days Odd Days OCT 1 [...] concerns, questions or increased signs or symptoms. Addendum: LAbs from OSH DOS -> 06/21/2013 ESR 20 rr: 0-30. CRP 0.8 Rr: 0.0-0.3 documented in this encounter Plan of Treatment Upcoming Encounters Date Type Specialty Care Team Description 02/26/2023 Office Visit Rheumatology Toño Rodriguez PA [facility] RHEUMATOLOGY [place], [place] [address] (Wo rk) documented as of this encounter Visit Diagnoses Diagnosis Joint pain - Primary Pain in joint, site unspecified Muscle ache Mylagia and myositis, unspecified Chronic steroid use Encounter for long-term (current) use of steroids Osteoarthritis Osteoarthrosis, unspecified whether gene ralized or localized, unspecified site documented in this encounter Care Teams Forge Tender Relationship Specialty Start Date End Date Savannah Ledesma APRN PCP - General 09/10/10 07/01/17 documented as of this encounter
--- OUTSIDE RECORDS SUMMARY | 2022-07-08 09:36 | XMS_ITS | Encounter Summary ---
:1945 Author Organization [facility] [place] [address] Care Team Providers Name Role Phone Jennifer Silva APRN Primary Care Provider Encounter Details Date Type Department Care Team Description 04/30/2011 Abstract Otolaryngology at [facility] Jaimie Moon, [facility] [place] [address] Social History Tobacco Use Types Packs/Day [...] Toño Rodriguez PA [facility] ER DR [place]UNOZ [place], [place] [address] (Wo rk) documented as of this encounter Visit Diagnoses Not on filedocumented in this encounter Care Teams Mobile Manager Relationship Specialty Start Date End Date Jennifer Silva APRN PCP - General 09/10/10 07/01/17 documented as of this encounter
--- OUTSIDE RECORDS SUMMARY | 2022-07-08 09:36 | XMS_ITS | Encounter Summary ---
:1945 Author Organization [facility] [place] [place] [address] Care Team Providers Name Role Phone Jennifer Silva Kelsey GILL Primary Care Provider Reason for Visit Reason Comments Macular Degeneration Pt states ever since she had Cataract Surgery OU OD has had sharp pains on & off. Encounter Details Date Type Department Care Team Description 06/09/2012 Follow-Up Ophthalmology at [facility] Ella Dominguez AMD (age related [facility] Jade Burleson MD macular degeneration) [place] [address] [facility] (Primary Dx) [phone] OPHTHALMOLOGY DE PT. [place], [place] [address] (Wo rk) Social History Tobacco Use Types Packs/Day Years Used Date Former Smoker 2 Quit: 07/19/19 79 Smokeless Tobacco: Never Used Alcohol Use Standard Drinks/Week Comments No 0 (1 standard drink = 0.6 oz pure alcoho l) Sex Assigned at Date Recorded Not on file documented as of this encounter Progress Notes Ella Mcduffie MD - 06/09/2012 10:43 AM EDT OU: pcIOL OU: AMD OD endstage disciform. OS hx of exudation, but no fluid on OCT OCT is normal OU. Plan: No injections OS. Recheck in 3 months or prn. documented in this encounter Nursing Notes 06/09/2012 9:15 AM EDT >> ELLA MCDUFFIE MD Wed Jun 09, 2012 10:43 AM Known AMD OU. Known hx of sinus disease. documented in this encounter Plan of Treatment Upcoming Encounters Date Type Specialty Care Team Description 02/26/2023 Office Visit Rheumatology Toño Rodriguez PA [facility] RHEUMATOLOGY [place], [place] [address] (Wo rk) documented as of this encounter Procedures Procedure Name Priority Date/Time Associated Diagnosis Comme nts OCT RETINA - OS - LEFT Routine 06/09/2012 10:43 AM AMD (age re lated EYE EDT macular degeneration) documented in this encounter Results OCT [id number] EYE (06/09/2012 10:43 AM EDT) Anatomical Region Laterality Modality Other Specimen (Source) Anatomical Location Collection Method / Collectio n Time Received Time / Laterality Volume Ella Mcduffie MD OPHTHALMOLOGY SERVICES ORDER [place] documented in this encounter Visit Diagnoses Diagnosis AMD (age related macular degeneration) - Primary Macular degeneration (senile) of retina, unspecified documented in this encounter Care Teams Business Continuity Management Director Relationship Specialty Start Date End Date Jennifer Silva, ADULT BASIC EDUCATION TEACHER PCP - General 09/10/10 07/01/17 documented as of this encounter
--- OUTSIDE RECORDS SUMMARY | 2022-07-08 09:36 | XMS_ITS | Encounter Summary ---
:1945 Author Organization [facility] [place] [address] Care Team Providers Name Role Phone Jnenifer Silva APRN Primary Care Provider Encounter Details Date Type Department Care Team Description 07/27/2012 Office Visit Endocrinology at [facility] Edna Foley Diabetes mellitus (Primary D x); [facility] [place] [address] CENTER [phone] [place] [address] Social History Tobacco Use Types Packs/Day Years Used Date Former Smoker 2 Quit: 07/19/19 77 Smokeless Tobacco: Never Used Alcohol Use Standard Drinks/Week Comments No 0 (1 standard drink = 0.6 oz pure alcoho l) Sex Assigned at Date Recorded Not on file documented as of this encounter Last Filed Vital Signs Vital Sign Reading Time Taken Comments Blood Pressure 142/86 07/27/2012 11:06 AM EDT Pulse 74 07/27/2012 11:06 AM EDT Temperature - - Respiratory Rate - - Oxygen Saturation - - Inhaled Oxygen Concentration - - Weight 90.3 kg (199 lb) 07/27/2012 11:06 AM EDT Height - - Body Mass Index 36.4 07/14/2012 8:58 AM EDT documented in this encounter Patient Instructions Patient InstructionsEdna Mortensen APRN - 07/27/2012 11:29 AM EDT Check with Dr Keane if he agrees that prinivil dose needs to be increased Discuss Preferred lipid medications with Dr Keane Keep up the good work with healthy plan!! documented in this encounter Progress Notes Edna Mortensen APRN - 07/27/2012 11:41 AM EDT DATE OF VISIT: 07/27/2012 REASON FOR VISIT: Followup type 2 DM, in continued very good control following a healthy meal plan. BRIEF HISTORY: Presents and states glucose levels are usually in the 120's or 130's. SBGM: Up to three times a day. DIABETES REGIMEN: Follows a healthy meal plan, is attempting weight loss by eating smaller portions. 24-HOUR MEAL PLAN: Breakfast was two hard-boiled eggs and a low-carb yogurt, decaffeinated coffee with fat-free milk. No morning snack. Lunch is a half of a rye bread sandwich. Dinner is meat, potato, and vegetables. States she is definitely eating a smaller amount of meat, has a garden and has been eating a lot of vegetables. Does not usually have an evening snack but occasionally has a sugar-free snack. PHYSICAL ACTIVITY: Not much related to psoriatic arthritis and fibromyalgia. Ambulates using a cane. Prevention strategies are up-to-date. Plans to get a flu vaccine later this fall, gets them in three small doses because SHE HAS ALLERGIES TO THE BASE OF THE FLU VACCINE. REVIEW OF SYSTEMS: Depression and Mood: Overall, is doing well. Her third great grandchild was recently born. Eyes: Followed closely by Dr. Mcduffie. Has macular degeneration. No recent headaches or chest pain or shortness of breath. No recent GI symptoms. Appetite is good. Sleep Pattern: Uses BiPAP for sleep apnea. Extremities: Has joint pains and low back pain. PHYSICAL EXAMINATION: Appearance: She is overweight with a larger central girth. She appears in good health. She is pleasant and talkative with good eye contact. Eyes: No retinopathy by green light exam. Neck: No thyromegaly or lymphadenopathy. Heart: Regular rate and rhythm. No murmurs. Lungs are clear to auscultation. Feet: Skin is normal. Pulses are normal. Neuro: Normal sensation to 10 g of pressure. Has podiatry care with Dr. Garcia in [place], [place]. LAB DONE TODAY: Hemoglobin A1c 7.1%. IMPRESSION AND PLAN: Diabetes mellitus type 2, in continued good overall control. Encouraged the patient to continue to follow a healthy meal plan with smaller portions for weight loss. No need to add medication at this time. She has lost nine pounds in the past year. Blood pressure not at goal. She has an appointment later today with leadership development instructor, Dr. Keane. I encouraged her to consider increasing Prinivil dose to 10 mg daily. She states she will discuss with Dr. Keane first. Also, she states her insurance does not prefer Crestor and she has a list of the preferred statins and she will discuss that with Dr. Keane as well. This was a 29-minute office visit with 28 minutes spent counseling with the patient in the management of glucose levels, congratulating her with losing 9 pounds in the past year, and to continue to try to eat smaller portions for more weight loss. Return to office in one year. We will check CMP, hemoglobin A1c, TSH, vitamin D, HDL, DLDL, microalbumin. Recent Results (from the past 72 hour(s)) HEMOGLOBIN A1C Component Value Range ??? Hemoglobin A1C 7.1 (*) 4.3 - 6.1 (%) ??? Est Avg Gluc 157 (mg/dL) documented in this encounter Plan of Treatment Upcoming Encounters Date Type Specialty Care Team Description 02/26/2023 Office Visit Rheumatology Toño Rodriguez PA [facility] DR TAMMY SMALLWOOD, [place] [address] (Wo rk) documented as of this encounter Procedures Procedure Name Priority Date/Time Associated Diagnosis Comme nts HEMOGLOBIN A1C Routine 07/27/2012 10:24 AM Diabetes mellitus R esults for this EDT procedure are i n the results section . documented in this encounter Results Microalbumin, urine, random (06/29/2013 1:08 PM EDT) athologist Signature U Creatinine 60 mg/dL CERNER MILLENNIUM U Albumin Conc, <3.0 mg/L CERNER Random MILLENNIUM Alb/Cr Ratio, <5 mcg/mg Cr CERNER Random MILLENNIUM Comment: Reference Range* Random collection (mcg/mg creatinine) Normal ?<30 Microalbuminuria ?? 30 - 300 Clinical Albuminuria ?? >300 *[place] Diabetes Association. Diabetic Nephropathy. Diabetes Care 1997;(Suppl 1):S24-S27 Exercise within 24 hour, infection, fe abhay, CHF, marked hyperglycemia, and marked hypertension may elevate urinary albumin excretion over baseline values. Specimen Anatomical Collection Method Collection Time Receive d Time (Source) Location / / Volume Laterality Urine specimen 06/29/2013 1:08 PM 013 1:13 (specimen) EDT PM EDT Resulting Agency Comment Spec In Lab Andrés Mary MD URINE ORDERABLES Performing Organization Address City/State/ZIP Code Phon e Number [place] [phone] CERNER MILLENNIUM (ABNORMAL) LDL Cholesterol, Direct (06/29/2013 1:00 PM EDT) P athologist Signature LDL Chol 116 (H) <=99 mg/dL CERNER Direct MILLENNIUM Comment: The National Cholesterol Education Progr am (NCEP) has set the following guidelines for LDL Cholesterol: Reference range: ?? Optimal: ?<100 mg/dL ?? Near Optimal/Above Optimal: ?? 100-1 29 mg/dL ?? Borderline high: ?130-159 mg/dL ?? High: ? 160-189 mg/dL ?? Very high: ?>vm=320 mg/dL LAXMI 2001: 285(19):1241-2676 Specimen Anatomical Collection Method Collection Time Receive d Time (Source) Location / / Volume Laterality Blood specimen 06/29/2013 1:00 PM 013 1:06 (specimen) EDT PM EDT Resulting Agency Comment Spec In Lab Andrés Mary MD CHEMISTRY ORDERABLES Performing Organization Address City/[facility] [place] [address] CERNER MILLENNIUM (ABNORMAL) HDL/Cholesterol Profile (06/29/2013 1:00 PM EDT) P athologist Signature Chol, Total 214 (H) <=199 CERNER mg/dL MILLENNIUM Comment: Recommendations of the NCEP Adult Treatm ent Panel for the following risk cutoff thresholds for the [place] populatio n: Desirable: <200 mg/dL Borderline High: 200-239 mg/dL High: > or = 240 mg/dL HDL 75 >=40 mg/dL CERNER MILLENNIUM Comment: Reference range: ??Low HDL: ?? < 40 mg/dL ??Normal: ?40-60 mg/dL ??Desirable: > 60 mg/dL LAXMI 2001; 285(19):2900-9134 Chol/HDL Ratio 2.9 ratio CERNER MILLENNI UM Comment: A Cholesterol to HDL ratio below 4:1 is desirable. ??Studies suggest that increased CAD risk occurs at ratios abov e 5 for females and above 6 for men. ? [place] Heart Association ??(htt p://www.americanheart.org) ? Lurdes Int Med, 1994; 121:641 ? AM J Med, 1998; 105(1A):48S Specimen Anatomical Collection Method Collection Time Receive d Time (Source) Location / / Volume Laterality Blood specimen 06/29/2013 1:00 PM 013 1:06 (specimen) EDT PM EDT Resulting Agency Comment Spec In Lab Andrés Mary MD CHEMISTRY ORDERABLES Performing Organization Address City/[facility] [place] [address] CERNER 51wanENNIUM (ABNORMAL) VIT D Total Evaluation (06/29/2013 1:00 PM EDT) P athologist Signature 25-OH Vit D 29 (L) 30 - 100 CERNER Total ng/mL [facility] Comment: Deficient <10 ng/mL Insufficient 10 to 29 ng/mL Sufficient 30 to 100 ng/mL Potential Intoxication >100 ng/mL According to the US National Osteoporosi s Foundation, Vitamin D concentrations >30 ng/mL are sufficient to protect bone health. ??The National Kidney Foundation has similarly stated that pat ients with Vitamin D concentrations <30ng/mL should be considered to be insu fficient or deficient. http://www.kidney.org/professionals/KDOQ I/guidelines_bone/Guide7.htm http://www.nof.org/professionals/clinica l-guidelines The IDS iSYS Vitamin D Immunoassay detec ts both 25-OH Vitamin D2 and 25-OH Vitamin D3, but only a total Vitamin D c oncentration is reported. Specimen Anatomical Collection Method Collection Time Receive d Time (Source) Location / / Volume Laterality Blood specimen 06/29/2013 1:00 PM 013 1:06 (specimen) EDT PM EDT Resulting Agency Comment Spec In Lab Andrés Mary MD CHEMISTRY ORDERABLES Performing Organization Address City/State/ZIP Code Phon e Number [address] [facility] TSH (06/29/2013 1:00 PM EDT) athologist Signature TSH 0.64 0.27 - 4.20 CERNER mcIU/mL [facility] Specimen Anatomical Collection Method Collection Time Receive d Time (Source) Location / / Volume Laterality Blood specimen 06/29/2013 1:00 PM 013 1:06 (specimen) EDT PM EDT Resulting Agency Comment Spec In Lab Andrés Mary MD CHEMISTRY ORDERABLES Performing Organization Address City/[facility]/ZIP Code Phon e Number [address] [facility] (ABNORMAL) Hemoglobin A1c (06/29/2013 1:00 PM EDT) Analysis Performed At Patho logist Time Signature Hemoglobin A1C 7.4 (H) 4.3 - 6.1 CERNER % MILLENNIUM Comment: The [place] Diabetes Association (ADA) has stated that HbA1c values >or= 6.5% are consistent with the diagnosis of jolie betes mellitus. In the absence of hyperglycemia (i.e. plasma glucose > 200 mg/dL) or classic symptoms of hyperglycemia a repeat measurement of Hb A1c should be performed on a separate sample to confirm the diagnosis. The ADA also considers an HbA1c value be tween 5.7% and 6.4% to be consistent with an increased risk of diabetes (pred iabetes). Patients with an HbA1c value in this range should be counseled about their increased risk of progressing to diabetes. Reference: Position Statement: Standards of Medical Care in Diabetes 2013. Diabetes Care 2013:36;suppl 1:S11 -S66. Est Avg Gluc See note mg/dL CERNER Comment: Estimated Average Glucose not appropriat e [...] Additional resources are available on ADA website: ??http://professional.diabetes.org/gluc osecalculator.aspx Jose Miguel BRAXTON, Moraima J, Ximena R, et al. ??Tr anslating the A1C assay into estimated average glucose values. ??Diabetes Care 2008:31(8):5417-2304. Specimen Anatomical Collection Method Collection Time Receive d Time (Source) Location / / Volume Laterality Blood specimen 06/29/2013 1:00 PM 013 1:06 (specimen) EDT PM EDT Resulting Agency Comment Spec In Lab Andrés Mary MD CHEMISTRY ORDERABLES Performing Organization Address City/State/ZIP [place] [address] CERNER MILLENNIUM (ABNORMAL) Comprehensive metabolic panel (non-fasting) (06/29/2013 1:00 PM EDT) P athologist Signature Glucose Lvl 198 60 - 199 CERNER mg/dL MILLENNIUM Comment: Diabetes: >=200 mg/dL plus symp toms BUN 20 (H) 8 - 18 mg/dL CERNER MILLENNIUM Creatinine 0.80 0.70 - 1.20 mg/dL CERNER MILL ENNIUM Comment: Please note that the pediatric reference intervals supplied above were not validated at [facility]. Results from pediatri c patients should be [...] if there are any qu estions. Chloride 96 (L) 98 - 107 mmol/L CERNER MILLENN IUM CO2 27 22 - 31 mmol/L CERNER MILLENNI UM Anion Gap 15 5 - 15 mmol/L CERNER MILLENNIU M Calcium 10.0 8.5 - 10.5 mg/dL CERNER DEVON NIUM Total Protein 7.1 6.4 - 8.3 gm/dL CERNER MIL LENNIUM Albumin 4.3 3.2 - 5.2 gm/dL CERNER MILLENN IUM AST 17 0 - 30 unit/L CERNER MILLENNIU M ALT 22 0 - 30 unit/L CERNER MILLENNIU M Alk Phos 68 40 - 104 unit/L CERNER MILLENN IUM Total Bilirubin 0.3 0.2 - 1.3 mg/dL SOURAV Bertrand ILLENNIUM Bili, Direct 0.1 0.0 - 0.3 mg/dL SOURAV [place] ENNIUM Estimated GFR >60 >=60 SOURAV Bertrand Comment: This estimated GFR (eGFR) value was [...] the following links into your internet browser. http://www.HistoPathwaydep.nih.gov/lab-evaluation. shtml http://www.kidney.org/professionals/ Specimen Anatomical Collection Method Collection Time Receive d Time (Source) Location / / Volume Laterality Blood specimen 06/29/2013 1:00 PM 013 1:06 (specimen) EDT PM EDT Resulting Agency Comment Spec In Lab Andrés Mary MD CHEMISTRY ORDERABLES Performing Organization Address City/State/[place] [address] SOURAV ROSA (ABNORMAL) Hemoglobin A1c (07/27/2012 10:24 AM EDT) Analysis Performed At [facility] Time Signature Hemoglobin A1C 7.1 (H) 4.3 - 6.1 CERNER % MILLENNIUM Est Avg Gluc 157 mg/dL CERNER MILLENNIUM Comment: eAG equivalents for HbA1c percentages: HbA1c(%) [...] into estimated average glucose values. ??Diabetes Care 2008:31(8):3789-4198. Specimen Anatomical Collection Method Collection Time Receive d Time (Source) Location / / Volume Laterality Blood specimen 07/27/2012 10:24 2 (specimen) AM EDT 10:28 AM EDT Resulting Agency Comment Spec In Lab Andrés Mary MD CHEMISTRY ORDERABLES Performing Organization Address City/State/ZIP Code Phon e Number [place] [phone] [facility] documented in this encounter Visit Diagnoses Diagnosis Diabetes mellitus - Primary Type II or unspecified type diabetes kate litus without mention of complication, not stated as uncontrolled Hyperlipidemia Other and unspecified hyperlipidemia documented in this encounter Care Teams It Architect Relationship Specialty Start Date End Date Jennifer Silva APRN PCP - General 09/10/10 07/01/17 documented as of this encounter
--- OUTSIDE RECORDS SUMMARY | 2022-07-08 09:36 | XMS_ITS | Encounter Summary ---
:1945 Author Organization [facility] [place] [address] Care Team Providers Name Role Phone Jennifer Silva APRN Primary Care Provider Reason for Visit Reason Comments Follow-up Results DEXA scan just done this damion quinterog Encounter Details Date Type Department Care Team Description 05/01/2011 Follow-Up Rheumatology at [facility] Alisha Heredia, Psoriatic arthritis (Primary Dx); [facility] Jade mijares APRN At risk for decreased bone density; [place] [address] [facility] Osteopenia; [phone] DR Encounter for long-term (current) use of other medications; RHEUMATOLOGY DEP T. Obstructive airway disease; [place], [place] [address] Restrictive airway disease Social History Tobacco Use Types Packs/Day Years Used Date Former Smoker Smokeless Tobacco: Never Used Alcohol Use Standard Drinks/Week Comments Not Asked 0 (1 standard drink = 0.6 oz pure alcoho l) Sex Assigned at Date Recorded Not on file documented as of this encounter Last Filed Vital Signs Vital Sign Reading Time Taken Comments Blood Pressure 140/76 05/01/2011 9:01 AM EDT Pulse 66 05/01/2011 9:01 AM EDT Temperature 36.6 ??C (97.8 ??F) 05/01/2011 9:01 AM EDT Respiratory Rate - - Oxygen Saturation 98% 05/01/2011 9:01 AM EDT Inhaled Oxygen Concentration - - Weight 94.3 kg (208 lb) 05/01/2011 9:01 AM EDT Height 157.5 cm (5' 2) 05/01/2011 9:01 AM EDT Body Mass Index 38.04 05/01/2011 9:01 AM EDT documented in this encounter Patient Instructions Patient InstructionsAlisha Heredia APRN - 05/01/2011 11:28 AM EDT 1. DXA images reviewed (report pending) - copies ot patient and report to PCP when completed. 2. Ongoing osteoporosis prevention strategies - calcium intake, vit D dietary supplementation & weight bearing exercise. 3. Reclast infusion on HOLD. 4. Resume MTX. 5. Ongoing HEP per PT referral. 6. Referral PULM - records from recent PFTs/signed consent for release of old records [facility] (CT/CRX, respectively). 7. Further planning pending PULM consult. documented in this encounter Progress Notes Alisha Heredia APRN - 05/01/2011 9:41 AM EDT Francisca Kong is a 66 y.o. female seen for ongoing evaluation and management of psoriatic arthritis. She is unaccompanied. INTERVAL HISTORY: Reports improvement in shoulder ROM and level of comfort. Continues PT. Was referred for PFTs by PCP for dyspnea and advised that results may reflect methotrexate associated changes. Off MTX x 2 weeks, stiff and tender all over, no joint swelling. Is to be seen later today in Ophthalmology. Scheduled for lens implants in Jun 2011 in [facility]. Remains active; ongoing [employer], Exam[employer] activity program - [facility]. Continues Lidoderm, heat with improvement; valium at bedtime with benefit. Denies recurrent illness or infection. Reports no other changes in medical, surgical, or social history. Is up to date on routine health maintenance and screening exams. ROS: GEN: (-) fever; (-) night sweats; (-) chills; (-) weight loss/gain; (-) fatigue HEENT: (-) dry eyes; (-) eye pain; (-) oral ulcers; (+) dry mouth; (-) dysphagia; (-) epistaxis; (-)sore throat CVS: (-) chest pain; (-) palpitations; (-) [...] SKIN: (-) Raynauds; (-) ulcers; (-) rash PHYSICAL EXAM: Constitutional: AAOx3, NAD, pleasant female sitting comfortably. HEENT: Normocephalic; (-)scleral injection, oral mucous membranes moist and intact. Neck: Neck supple; (-) lymphadenopathy (-) thyromegaly Pulm: CTA; no wheezing, rales or rhonchi CV: RRR; no murmur or extra sounds; no CCE Neuro: Gait even and co-ordinated; speech clearly articulated Musculoskeletal: Muscle mass bilaterally symmetric. Joint exam: ?? Shoulders: Limited ROM in all planes (bilateral), nontender ?? Elbows: Functional ROM, nontender; (-) extensor surface nodules or effusion ?? Wrists: Functional ROM; (-) effusion; (+) tenderness ?? MCPs: Functional ROM; (+) tender; (-) synovitis ?? PIPs: Functional ROM; (+) tender; (-) synovitis ?? DIPs: Functional ROM; (-) nontender; (-) synovitis ?? (No) deformities; makes an incomplete fist and claw ?? Hips: Functional ROM, (-) tenderness; independent seated -> standing/standing to seated ?? Knees: Functional ROM, (-)effusions, (-) no tenderness ?? Ankles/feet: Functional ROM, (-)MTP compression tenderness Skin: Warm, dry; (-) telangiectasias; (-) ulcers; (-) rash; (-) nail pitting;(-) bruising Labs: Pending. ASSESSMENT : Inflammatory arthritis, dyspnea; osteopenia; drug safety monitoring PLAN/RECOMMENDATIONS: 1. DXA images reviewed (report pending) - copies ot patient and report to PCP when completed. 2. Ongoing osteoporosis prevention strategies - calcium intake, vit D dietary supplementation & weight bearing exercise. 3. Reclast infusion on HOLD. 4. Resume MTX. 5. Ongoing HEP per PT referral. 6. Referral PULM - records from recent PFTs/signed consent for release of old records [facility] (CT/CRX, respectively). 7. Further planning pending PULM consult. Subjective: Patient ID: Francisca Kong is a 66 y.o. female. HPI Review of Systems Objective: Physical Exam Assessment and Plan: No problem-specific visit notes found for this encounter. documented in this encounter Plan of Treatment Upcoming Encounters Date Type Specialty Care Team Description 02/26/2023 Office Visit Rheumatology Toño Rodriguez PA [facility] DR MUNOZ [place], [place] [address] (Wo rk) documented as of this encounter Visit Diagnoses Diagnosis Psoriatic arthritis - Primary Psoriatic arthropathy At risk for decreased bone density Other specified conditions influencing h ealth status Osteopenia Disorder of bone and cartilage, unspecif ied Encounter for long-term (current) use of other medications Obstructive airway disease Chronic airway obstruction, not elsewher e classified Restrictive airway disease Other diseases of lung, not elsewhere cl assified documented in this encounter Care Teams Porcelain Enamel Installer Relationship Specialty Start Date End Date Jennifer Silva APRN PCP - General 09/10/10 07/01/17 documented as of this encounter
--- OUTSIDE RECORDS SUMMARY | 2022-07-08 09:36 | XMS_ITS | Encounter Summary ---
:1945 Author Organization [place] [address] Care Team Providers Name Role Phone McminnJennie mckeonhumphrey Cole APRN Primary Care Provider Encounter Details Date Type Department Care Team Description 02/10/2012 Hospital Encounter Laboratory Samina Gomes MD [address] [address] RHEUMATOLOGY [phone] [place] [address] (Wo rk) Social History Tobacco Use Types Packs/Day Years Used Date Former Smoker 2 Quit: 07/19/19 79 Smokeless Tobacco: Never Used Alcohol Use Standard Drinks/Week Comments No 0 (1 standard drink = 0.6 oz pure alcoho l) Sex Assigned at Date Recorded Not on file documented as of this encounter Medications at Time of Discharge Medication Sig Dispensed Refills Start Date End Date digoxin (LANOXIN) 125 Take 62.5 mcg by mouth 0 mcg tablet daily. acetaminophen (TYLENOL Take 1,000 mg by mouth 0 EXTRA STRENGTH) 500 mg 3 times daily as tablet needed. Reported on 03/11/2017 verapamil (CALAN) 40 mg 40 mg, PO, Three times 0 10/04/2010 tablet daily Levalbuterol Tartrate 2 Puff(s), Inh, Q6H 0 10/04 (XOPENEX HFA) 45 mcg/Actuation inhaler insulin regular human Inject subcutaneously 0 06/29/2013 (NOVOLIN R) 100 unit/mL See Admin vial injection Instructions. SLIDING SCALE DIRECTED OXYcodone-acetaminophen Take 1 tablet by mouth 0 08/17/2013 (PERCOCET) 5-325 mg per as needed. tablet ergocalciferol Take 1 capsule by 9 capsule 0 05/12/2011 (ERGOCALCIFEROL) 50,000 mouth once a week. unit capsuleIndications: DJD (degenerative joint disease) atorvastatin (LIPITOR) Take 20 mg by mouth 0 03/24/2012 20 mg tablet daily. diaZEPam (VALIUM) 2 mg Take 1 mg by mouth 0 03/15/2019 tablet every 6 hours as needed. Reported on 03/11/2017 esomeprazole (NEXIUM) Take 40 mg by mouth 2 0 09/13/2019 40 mg capsule times daily. lisinopril Take 5 mg by mouth 0 2013 (PRINIVIL;ZESTRIL) 5 mg daily. tablet methotrexate 2.5 mg Take 8 tablets by 52 tablet 3 1 03/24/2012 tablet mouth once a week. LEVALBUTEROL HCL Inhale 1 Nebules into 0 03/26/20 11 07/02/2017 (XOPENEX CONCENTRATE the lungs every 8 INHL) hours as needed. MAGNESIUM CHLORIDE Take by mouth daily as 0 01/2903/15/2019 (SLOW-MAG ORAL) needed. Calcipotriene (DOVONEX) 1 Appl(s), Top, 2x 0 09/1902/09/2013 0.005 % Crea daily M-W-F CYANOCOBALAMIN, VITAMIN 0 10/04/2010 0 03/07/2015 B-12, (VITAMIN B-12 ORAL) folic acid (FOLVITE) 1 1 mg PO Once daily 0 10/0402/09/2013 mg tablet fluticasone (FLOVENT 2 Puff(s), Inh, Twice 0 09/1804/29/2016 HFA) 110 mcg/Actuation daily inhaler lidocaine (LIDODERM) 5 1 Patch(es), Top, 12 0 07/27/2012 %(700 mg/patch) hrs on/12 hrs off clobetasol (TEMOVATE) 1 Appl(s), Top, 2 x 0 10/0402/09/2013 0.05 % cream daily SAT/SUN documented as of this encounter Plan of Treatment Upcoming Encounters Date Type Specialty Care Team Description 02/26/2023 Office Visit Rheumatology Toño Rodriguez PA [facility] RHEUMATOLOGY [place], [place] [address] (Wo rk) documented as of this encounter Procedures Procedure Name Priority Date/Time Associated Diagnosis Comme nts VITAMIN D, Routine 02/10/2012 11:23 AM Results for this 25-HYDROXY EDT procedure are i n the results section. documented in this encounter Results VIT D TOTAL EVALUATION (02/10/2012 11:23 AM EDT) P athologist Signature 25-OH Vit D 30 30 - 100 CERNER Total ng/mL [facility] Comment: Deficient <10 ng/mL Insufficient 10 to [...] total Vitamin D c oncentration is reported. Please note, the performing location for this test has changed. ??As of 11/25/2011 the Vitamin D Total, 25 [place] xy assays are being analyzed by the [facility]. ??There is NO CHANGE in units. ??Please contact the chemistry laboratory at [phone] with ques tions. Specimen Anatomical Collection Method Collection Time Receive d Time (Source) Location / / Volume Laterality Blood specimen 02/10/2012 11:23 2 (specimen) AM EDT 11:31 AM EDT Resulting Agency Comment Spec In Lab Alisha Heredia APRN CHEMISTRY ORDERABLES Performing Organization Address City/State/[place] [address] [facility] documented in this encounter Visit Diagnoses Not on filedocumented in this encounter Care Teams Lpn Care Manager Relationship Specialty Start Date End Date Jennifer Silva APRN PCP - General 09/10/10 07/01/17 documented as of this encounter
--- OUTSIDE RECORDS SUMMARY | 2022-07-08 09:36 | XMS_ITS | Encounter Summary ---
:1945 Author Organization [facility] Address [facility] [place] [address] Care Team Providers Name Role Phone MarshallJennie mckeonhumphrey Cole APRN Primary Care Provider Reason for Visit Reason Comments Macular Degeneration pt c/o crooked lineds on [address] d while driving--can't read big print on TV. 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 [place], [place] [address] (Wo rk) Social History Tobacco Use Types Packs/Day Years Used Date Former Smoker Smokeless Tobacco: Never Used Alcohol Use Standard Drinks/Week Comments Not Asked 0 (1 standard drink = 0.6 oz pure alcoho l) Sex Assigned at Date Recorded Not on file documented as of this encounter Progress Notes Ella Mcduffie MD - 03/26/2011 10:09 AM EDT 1. AMD OS, stable post 3 antivegf shots. No recurrance of cnvm. 2. Cataracts OU (od had poor vision). OS: psc plus NS increasing. Plan: No rx Refer back to Dr Kauffman for potential cataract surgery prn OS. RTC to see me, 6 months. documented in this encounter Nursing Notes 03/26/2011 8:45 AM EDT >> ELLA MCDUFFIE MD ThuMar 26, 2011 10:10 AM Can't see cars coming toward her, or see material distributor signs. >> NONA DANIELLE LPN ThuMar 26, 2011 9:28 AM Description:Patient presents with: Macular Degeneration - pt c/o crooked lineds on road while driving--can't read big print on TV. Hasbothered for months Location: Left eye, distorted vision Duration: months Rapidity of Onset:gradual Severity: 7 Condition:WORSENIN Pain:0 Associated Symptoms: glare documented in this encounter Plan of Treatment Upcoming Encounters Date Type Specialty Care Team Description 02/26/2023 Office Visit Rheumatology Toño Rodriguez PA [facility] DR MUNOZ [place], [place] [address] (Wo rk) documented as of this encounter Procedures Procedure Name Priority Date/Time Associated Diagnosis Comme nts OCT RETINA - OS - LEFT Routine 03/26/2011 10:07 AM CNVM (choro idal EYE EDT neovascular membrane) documented in this encounter Results OCT [id number] EYE (03/26/2011 10:07 AM EDT) Anatomical Region Laterality Modality Other Ella Mcduffie MD OPHTHALMOLOGY SERVICES ORDER KEKE documented in this encounter Visit Diagnoses Diagnosis 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
--- OUTSIDE RECORDS SUMMARY | 2022-07-08 09:36 | XMS_ITS | Encounter Summary ---
:1945 Author Organization [facility] [place] [address] Care Team Providers Name Role Phone Jennifer Silva JAIRO Primary Care Provider Reason for Visit Reason Comments Macular Degeneration 6 wk ck, OCT OS, poss Lucent is Encounter Details Date Type Department Care Team Description 03/24/2012 Follow-Up Ophthalmology at [facility] Ella Dominguez AMD (age related [facility] Jade Burleson MD macular degeneration) [place] [address] [facility] (Primary Dx) [phone] OPHTHALMOLOGY DE PT. [place], [place] [address] (Wo rk) Social History Tobacco Use Types Packs/Day Years Used Date Former Smoker 2 Quit: 07/19/19 77 Smokeless Tobacco: Never Used Alcohol Use Standard Drinks/Week Comments No 0 (1 standard drink = 0.6 oz pure alcoho l) Sex Assigned at Date Recorded Not on file documented as of this encounter Progress Notes Ella Mcduffie MD - 03/24/2012 2:38 PM EDT AMD OU: OD: endstage disciform OS: exudative AMD, but with no fluid on OCT> Plan: No injection. documented in this encounter Nursing Notes 03/24/2012 12:45 PM EDT >> ELLA MCDUFFIE MD ThuMar 24, 2012 2:37 PM ALLERGY TO EPINEPHRINE. DO NOT USE EPI EYE DROPS. THANK YOU! Thomas nance Here for AMD follow up. No change in vision. THOMAS NANCE >> VARGHESE An ThuMar 24, 2012 1:15 PM Pt notes that VA OU is about the same as last visit; Pt notes that she has sharp shooting pain and dull aching pain OD since cat sx 05/24/2011. documented in this encounter Plan of Treatment Upcoming Encounters Date Type Specialty Care Team Description 02/26/2023 Office Visit Rheumatology Toño Rodriguez PA [facility] RHEUMATOLOGY [place], [place] [address] (Wo rk) documented as of this encounter Procedures Procedure Name Priority Date/Time Associated Diagnosis Comme nts OCT RETINA - OS - LEFT Routine 03/24/2012 2:37 PM EDT AMD (age related EYE macular degeneration) documented in this encounter Results OCT [id number] EYE (03/24/2012 2:37 PM EDT) Anatomical Region Laterality Modality Other Specimen (Source) Anatomical Location Collection Method / Collectio n Time Received Time / Laterality Volume Ella Mcduffie MD OPHTHALMOLOGY SERVICES ORDER KEKE documented in this encounter Visit Diagnoses Diagnosis AMD (age related macular degeneration) - Primary Macular degeneration (senile) of retina, unspecified documented in this encounter Care Teams Lime Slaker Relationship Specialty Start Date End Date Jennifer Silva APRN PCP - General 09/10/10 07/01/17 documented as of this encounter
--- OUTSIDE RECORDS SUMMARY | 2022-07-08 09:36 | XMS_ITS | Encounter Summary ---
:1945 Author Organization [facility] [place] [address] Care Team Providers Name Role Phone CowetaJennifer mckeon Kelsey GILL Primary Care Provider Reason for Visit Reason Comments Follow-up Encounter Details Date Type Department Care Team Description 07/14/2012 Follow-Up Rheumatology at [facility] Alisha Heredia, Osteoporosis (Primary Dx); [facility] [employer]NEY Psoriasis; [facility] Psoriatic arthritis; [place] [address] DR Joint pain; [phone] RHEUMATOLOGY DEP T. Osteoarth NOS-ankle [place], [place] [address] Social History Tobacco Use Types Packs/Day Years Used Date Former Smoker 2 Quit: 07/19/19 79 Smokeless Tobacco: Never Used Alcohol Use Standard Drinks/Week Comments No 0 (1 standard drink = 0.6 oz pure alcoho l) Sex Assigned at Date Recorded Not on file documented as of this encounter Last Filed Vital Signs Vital Sign Reading Time Taken Comments Blood Pressure 124/71 07/14/2012 8:58 AM EDT Pulse 79 07/14/2012 8:58 AM EDT Temperature 36.7 ??C (98 ??F) 07/14/2012 8:58 AM EDT Respiratory Rate 16 07/14/2012 8:58 AM EDT Oxygen Saturation 98% 07/14/2012 8:58 AM EDT Inhaled Oxygen Concentration - - Weight 90.3 kg (199 lb) 07/14/2012 8:58 AM EDT Height 157.5 cm (5' 2) 07/14/2012 8:58 AM EDT Body Mass Index 36.4 07/14/2012 8:58 AM EDT documented in this encounter Progress Notes Alisha Heredia, JAIRO - 07/14/2012 9:23 AM EDT Francisca Kong is a 67 y.o. female seen for ongoing evaluation and management of psoriatic arthritis. She is unaccompanied. Last seen in 11/2011. Patient Active Problem List Diagnoses Code ??? Coronary artery disease 414.00A ??? DJD (degenerative joint disease) 715.90AJ ??? GERD (gastroesophageal reflux disease) 530.81S ??? Lipid disorder 272.9P ??? Psoriatic arthritis 696.0G ??? Reactive airway disease 493.90AK ??? AMD (age related macular degeneration) 362.50L INTERVAL HISTORY: Off methotrexate since late 2010. Reports no joint swelling. Small amount of psoriasis rash on left elbow. Using cane in right hand for mobility aid/balance. Reports persistent stiffness and pain in neck, shoulders, wrists, hands, knees and ankles - very sore. Continues cardiac rehab2 x/week, home exercise program, stairs, weights/bands. Is stacking wood for winter. Reports greatest concern today to be persistent dizziness since cataract repair (MICHELLE). States referral to Neurology by JENNIFER LEDESMA, COMMERCIAL ATTORNEY And seen at [facility]SH. Understands there were no findings on exam which would explain dizziness, but has not seen final report or recommendations. Has follow up scheduled with Dr. Ledesma in 2 weeks. Wondersif dizziness could be related to cerviucal spine arthritis and maybe stenosis. Seen routinely by Dr. 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 Left eye vision is good. Continues to drive. Sees Dr. Keane annually for 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 disease s/p single vessel stent When last seen reported, unable to use muscle relaxant (Flexeril - sedation) -> valium a couple times daily (including hs). Reports non-restorative sleep, but unable to tolerate meds which have beenrecommended previously for FMS (neurontin, lyrica, flexeril). BiPAP using every night. Denies recurrent illness or infection. Reports no other changes in medical, surgical, or social history. Is up to date on routine health maintenance and screening exams. Plan annual influenza vaccine and tetanus booster (divided dose due to allergies). ROS: GEN: (-) fever; (-) night sweats; (-) chills; (+) weight loss intended/gain; (+) fatigue HEENT: (-) dry eyes; (-) [...] (-) Raynauds; (-) ulcers; (+) rash Current outpatient prescriptions ordered prior to encounter Medication Sig Dispense Refill ??? ascorbic acid (VITAMIN C) 1,000 mg tablet Take 1,000 mg by mouth every 3 days. ??? aspirin 325 mg tablet Take 325 mg by mouth daily. ??? CALCIUM ORAL Take 1,600 mg by mouth daily. ??? OMEGA-3S/DHA/EPA/FISH OIL (OMEGA 3 ORAL) Take 4,800 mg by mouth daily. ??? rosuvastatin (CRESTOR) 5 mg tablet Take 5 mg by mouth daily. ??? ergocalciferol (ERGOCALCIFEROL) 50,000 unit capsule Take 1 capsule by mouth every 30 days. 3 capsule 1 ??? insulin regular human (NOVOLIN R) 100 [...] mcg/Actuation inhaler 2 Puff(s), Inh, Q6H ??? lidocaine (LIDODERM) 5 %(700 mg/patch) 1 Patch(es), Top, 12 hrs on/12 hrs off ??? clobetasol (TEMOVATE) 0.05 % cream 1 Appl(s), Top, 2 x daily SAT/SUN Allergies Allergen Reactions ??? Penicillins Shortness Of Breath and Rash ??? Sulfa (Sulfonamide Antibiotics) Hives ??? Epinephrine Palpitations ??? Codeine Phos Palpitations ??? Fluoxetine Hcl Shortness Of Breath and Palpitations ??? Citalopram Hydrobromide Shortness Of Breath ??? Marlyn Type Anesthetics Shortness Of Breath ??? Amide Type Anesthetics Shortness Of Breath ??? Escitalopram Oxalate Shortness Of Breath ??? Lidocaine Palpitations ??? Iodine-iodine Containing Rash ??? Nsaids Palpitations and Other (See Comments) Hypertension ??? Ether Hives ??? Beta-blockers (Beta-adrenergic Blocking Agts) ??? Montelukast Sodium Diarrhea and Nausea And Vomiting ??? Morphine Sulfate Pt requests no morphine. ??? Histamine Palpitations SVT's ??? Unable To Find (Unclassified Drug) All Antihistamines. PHYSICAL EXAMINATION: Constitutional: AAOx3, NAD, pleasant female sitting comfortably. HEENT: Normocephalic; (-)scleral injection, oral mucous membranes moist and intact. Neck: Neck supple; (-) lymphadenopathy (-) thyromegaly (-) parotid or submandibular gland enlargement Pulm: CTA; no wheezing, rales or rhonchi CV: RRR; no murmur or extra sounds; no CCE Neuro: Gait stiff and wide based; co-ordinated with use of a cane; speech clearly articulated Musculoskeletal: Muscle mass bilaterally symmetric. Joint exam: ?? Neck: ROM functional, limited in bilateral flexion/rotation (+) tender with AROM ?? Shoulders: Limited ROM in all planes (bilateral), tender ?? Elbows: Functional ROM, nontender; (-) extensor surface nodules or effusion ?? Wrists: Functional ROM; (-) effusion; (+) tenderness ?? MCPs: Functional ROM; (+) tender; (-) synovitis ?? PIPs: Functional ROM; (+) tender; (-) synovitis ?? DIPs: Functional ROM; (-) nontender; (-) synovitis ?? (No) deformities; makes a near complete fist and claw ?? Hips: Functional ROM, (-) tenderness; independent seated -> standing/standing to seated ?? Knees: Functional ROM, (-)effusions, (-) no tenderness ?? Ankles/feet: Functional ROM, (-)MTP compression tenderness Skin: Warm, dry; (-) telangiectasias; (-) ulcers; (+) thin hyperkeratotic rash (LEFT elbow); (-) nail pitting;(-) bruising Labs: Vitamin D level pending - complete 81777 u monthly and ran out so started 2000 u vit D OTC supplement daily a few days ago. ASSESSMENT : Inflammatory arthritis, osteoarthritis, osteopenia; drug safety monitoring PLAN/RECOMMENDATIONS: 1. In absence of joint swelling, continue acetaminophen 1000 mg po TID, prn for joint pain and stiffness. 2. Consider Arava (Leflunomide) if joint swelling occurs - patient to contact the clinic. 3. Ongoing osteoporosis prevention strategies - calcium intake, vit D dietary supplementation & weight bearing exercise. 4. Reclast infusion remains ON HOLD - continue HOLD pending patient request to review with JENNIFER LEDESMA, APRN5. Ongoing HEP per PT referral. 6. Reviewed [facility] note 01/2011 -> spinal stenosis and DJD cervical/lumbar spine. 7. Encouraged contact with PCP to discuss persistent dizziness and outcome of NEurology evaluation. 8. Vitamin D level pending. 9. Follow up in 12 months, sooner for concerns, questions or increased signs/symptoms. Addendum: PRIMARY EXAM : XCSP3 CERVICAL SPINE [...] uncommon and consider continued monitoring, if indicated. documented in this encounter Plan of Treatment Upcoming Encounters Date Type Specialty Care Team Description 02/26/2023 Office Visit Rheumatology Toño Rodriguez PA [facility] ER RHEUMATOLOGY [place] [id number] (Wo rk) documented as of this encounter Procedures Procedure Name Priority Date/Time Associated Diagnosis Comme nts VITAMIN D, Routine 07/14/2012 9:54 AM Osteoporosis Results f or this 25-HYDROXY EDT procedure are i n the results section. documented in this encounter Results (ABNORMAL) VIT D Total Evaluation (07/14/2012 9:54 AM EDT) P athologist Signature 25-OH Vit D 28 (L) 30 - 100 CERNER Total ng/mL [facility] Comment: Deficient <10 ng/mL Insufficient 10 to [...] Location / / Volume Laterality Blood specimen 07/14/2012 9:54 AM 012 (specimen) EDT 10:02 AM EDT Resulting Agency Comment Spec In Lab Wander Lee MD CHEMISTRY ORDERABLES Performing Organization Address City/State/[place] [address] [facility] documented in this encounter Visit Diagnoses Diagnosis Osteoporosis - Primary Osteoporosis, unspecified Psoriasis Other psoriasis Psoriatic arthritis Psoriatic arthropathy Joint pain Pain in joint, site unspecified Osteoarthrosis, unspecified whether gene ralized or localized, ankle and foot documented in this encounter Care Teams Cartoon Artist Relationship Specialty Start Date End Date Jennifer Ledesma APRN PCP - General 09/10/10 07/01/17 documented as of this encounter
--- OUTSIDE RECORDS SUMMARY | 2022-07-08 09:36 | XMS_ITS | Encounter Summary ---
:1945 Author Organization [place] [address] Care Team Providers Name Role Phone ColquittJennie mckeonhumphrey Cole APRN Primary Care Provider Reason for Visit Reason Onset Date Comments Other 02/24/2013 inflammation Encounter Details Date Type Department Care Team Description 02/24/2013 Telephone Rheumatology at [place] Brittany Spivey Other (inflammation) [facility] [place] [address] Social History Tobacco Use Types Packs/Day Years Used Date Former Smoker 2 Quit: 07/19/19 79 Smokeless Tobacco: Never Used Alcohol Use Standard Drinks/Week Comments No 0 (1 standard drink = 0.6 oz pure alcoho l) Sex Assigned at Date Recorded Not on file documented as of this encounter Miscellaneous Notes Telephone Encounter - Brittany Spivey RN - 03/01/2013 3:33 PM EDT Brittany - Could you call Francisca and review the following, please? 1. Case review with attending ([place]). 2. PLAN -> Would add MTX 15 mg po weekly, folic acid daily. * Assure she is on prednisone taper per my last note. THANKS 3. Reassess at 6 weeks. 4. Monitor for signs of infection. 5. Phone contact with SAVANNAH LEDESMA APRN on 02/28/2013. Reviewed recommendations after review. Will be seen in PCP's office in early March. 6. Schedule follow up at 6 weeks. (April 12). -> I will ask Paulette to cancel March 24 and move out to April 12. Called Francisca back to discuss plan of care as outlined above. Francisca reports being in a great deal of pain, to the point where her pcp has prescribed oxycodone 10 mg tablets every 3 hours for pain (per Francisca) She says she does not have yet because her insurance requires a pa. She says she expected she would have to take the mtx and folic acid. She never started the prednisone taper. She says she has not received an rx. So while it was ordered and discussed on 02/09/13 she has never started it. Explained to her what Salma's tapering instructions were. She said she is unable to taper by drops as outlined,she would have to taper 1 mg at a time. Told her Salma would be consulted about that, so prescriptionscould be sent into pharmacy. Told her she has follow up appointment scheduled for 04/12/13. Told her to continue to monitor for any signs of infection. She verbalized understanding of instructions. Telephone Encounter - Brittany Spivey RN - 02/24/2013 2:37 PM EDT Called Francisca back and asked if her pcp could fax labs directly to me. Also wanted to find out what chest xray results were. Left message for her to call back to discuss further. Telephone Encounter - Brittany Spivey RN - 02/24/2013 2:35 PM EDT Francisca is calling to say she saw her pcp today and she does not have a UTI. She says her inflammatorymarkers were way up and her doctor is quite concerned and would like Salma to do something for me. documented in this encounter Plan of Treatment Upcoming Encounters Date Type Specialty Care Team Description 02/26/2023 Office Visit Rheumatology Toño Rodriguez PA [facility] RHEUMATOLOGY [place], [place] [address] (Wo rk) documented as of this encounter Visit Diagnoses Not on filedocumented in this encounter Care Teams Relations Coordinator Relationship Specialty Start Date End Date Savannah Ledesma APRN PCP - General 09/10/10 07/01/17 documented as of this encounter
--- OUTSIDE RECORDS SUMMARY | 2022-07-08 09:36 | XMS_ITS | Encounter Summary ---
:1945 Author Organization [facility] [place] [address] Care Team Providers Name Role Phone Jennifer Silva APRN Primary Care Provider Encounter Details Date Type Department Care Team Description 06/29/2013 Hospital Encounter Laboratory Andrés Mary, Diabetes mellitus; [facility] Hyperlipidemia [facility] [id number] ENDOCRINOLOGY [phone] [place] [address] Social History Tobacco Use Types Packs/Day Years Used Date Former Smoker 2 Quit: 07/19/19 77 Smokeless Tobacco: Never Used Alcohol Use Standard Drinks/Week Comments No 0 (1 standard drink = 0.6 oz pure alcoho l) Sex Assigned at Date Recorded Not on file documented as of this encounter Medications at Time of Discharge Medication Sig Dispensed Refills Start Date End Date ascorbic acid (VITAMIN C) Take 1,000 mg by 0 1,000 mg tablet mouth as needed. OMEGA-3S/DHA/EPA/FISH OIL Take 4,800 mg by 0 (OMEGA 3 ORAL) mouth 4 times daily. rosuvastatin (CRESTOR) 5 mg Take by mouth. 5 0 tablet mg 4 times a week and 10mg 3 times a week digoxin (LANOXIN) 125 mcg Take 62.5 mcg by 0 tablet mouth daily. acetaminophen (TYLENOL EXTRA Take 1,000 mg by 0 STRENGTH) 500 mg tablet mouth 3 times daily as needed. Reported on 03/11/2017 verapamil (CALAN) 40 mg 40 mg, PO, Three 0 2009 tablet times daily Levalbuterol Tartrate 2 Puff(s), Inh, 0 0 (XOPENEX HFA) 45 Q6H mcg/Actuation inhaler hydrochlorothiazide Take 1 tablet by 30 tablet 0 06/29/2013 12/26/2015 (HYDRODIURIL) 25 mg tablet mouth daily. predniSONE (DELTASONE) 1 mg Take 2 tablets 60 tablet 2 06/1908/17/2013 tablet by mouth daily. Tapering WITH 5 mg tablets. predniSONE (DELTASONE) 5 mg Take 1.5 tablets 45 tablet 1 09/29/2013 tablet by mouth daily. INSULIN REGULAR, HUMAN Inject 0-10 0 0 06/29/2014 (NOVOLIN R PENFILL INJ) Units as directed daily as needed. methotrexate 2.5 mg tablet Take 6 tablets 78 tablet 3 04/1202/13/2014 by mouth once a week. folic acid (FOLVITE) 1 mg Take 2 tablets 180 tablet 3 201202/13/2014 tablet by mouth daily. May need earlier refill. Dose increase. VITAMIN D 50,000 unit TAKE ONE CAPSULE 12 capsule 3 08/08/20 12 10/06/2013 capsuleIndications: DJD BY MOUTH EVERY (degenerative joint disease) 30 DAYS aspirin 325 mg tablet Take 81 mg by 0 05/19/2022 mouth daily. CALCIUM ORAL Take 1,600 mg by 0 2015 mouth daily. OXYcodone-acetaminophen Take 1 tablet by 0 08/17/2013 (PERCOCET) 5-325 mg per mouth as needed. tablet diaZEPam (VALIUM) 2 mg Take 1 mg by 0 03/15/2019 tablet mouth every 6 hours as needed. Reported on 03/11/2017 esomeprazole (NEXIUM) 40 mg Take 40 mg by 0 05/0109/13/2019 capsule mouth 2 times daily. lisinopril Take 5 mg by 0 03/15/2014 (PRINIVIL;ZESTRIL) 5 mg mouth daily. tablet LEVALBUTEROL HCL (XOPENEX Inhale 1 Nebules 0 06/0 05/201107/02/2017 CONCENTRATE INHL) into the lungs every 8 hours as needed. MAGNESIUM CHLORIDE (SLOW-MAG Take by mouth 0 0412/201003/15/2019 ORAL) daily as needed. CYANOCOBALAMIN, VITAMIN 0 10/04/2010 0 03/07/2015 B-12, (VITAMIN B-12 ORAL) fluticasone (FLOVENT HFA) 2 Puff(s), Inh, 0 10/0404/29/2016 110 mcg/Actuation inhaler Twice daily documented as of this encounter Plan of Treatment Upcoming Encounters Date Type Specialty Care Team Description 02/26/2023 Office Visit Rheumatology Toño Rodriguez PA [facility] [place] [address] (Wo rk) documented as of this encounter Procedures Procedure Name Priority Date/Time Associated Diagnosis Comme nts U ALBUMIN/CRE RATIO Routine 06/29/2013 1:08 Diabetes mellitus Results for this PM EDT procedure are i n the results section. VITAMIN D, 25-HYDROXY Routine 06/29/2013 1:00 Diabetes mellitu s Results for this PM EDT procedure are i n the results section. TSH Routine 06/29/2013 1:00 Diabetes mellitus Results for this PM EDT procedure are i n the results section. LDL CHOLESTEROL, Routine 06/29/2013 1:00 Hyperlipidemia Result s for this DIRECT PM EDT procedure are i n the results section. HDL/CHOL PROFILE Routine 06/29/2013 1:00 Hyperlipidemia Result s for this PM EDT procedure are i n the results section. HEMOGLOBIN A1C Routine 06/29/2013 1:00 Diabetes mellitus Resul ts for this PM EDT procedure are i n the results section. COMPREHENSIVE Routine 06/29/2013 1:00 Diabetes mellitus Result s for this METABOLIC PANEL PM EDT procedure ar e in (NON-FASTING) the results section. documented in this encounter Results Microalbumin, urine, random (06/29/2013 1:08 PM EDT) P athologist Signature U Creatinine 60 mg/dL CERNER MILLENNIUM U Albumin Conc, <3.0 mg/L CERNER Random MILLENNIUM Alb/Cr Ratio, <5 mcg/mg Cr CERNER Random MILLENNIUM Comment: Reference Range* Random collection (mcg/mg creatinine) Normal ?<30 Microalbuminuria ?? 30 - 300 Clinical Albuminuria ?? >300 *[place] [employer] Association. Diabetic Nephropathy. Diabetes Care 1997;(Suppl [...] Mary MD URINE ORDERABLES Performing Organization Address City/[facility] [place] [place] [address] CERNER MILLENNIUM (ABNORMAL) LDL [...] High: ? 160-189 mg/dL ?? Very high: ?>ym=034 mg/dL LAXMI 2001: 285(19):4153-5710 Specimen Anatomical Collection Method Collection Time Receive d Time (Source) Location / / Volume Laterality Blood specimen 06/29/2013 1:00 PM 013 1:06 (specimen) EDT PM EDT Resulting Agency Comment Spec In Lab Andrés Mary MD CHEMISTRY ORDERABLES Performing Organization Address City/State/Z[place] [address] CERNER MILLENNIUM (ABNORMAL) HDL/Cholesterol Profile (06/29/2013 1:00 PM EDT) athologist Signature Chol, Total 214 (H) <=199 CERNER mg/dL MILLENNIUM Comment: Recommendations of the NCEP Adult Treatm ent Panel for the following risk cutoff thresholds for the [place] populatio n: Desirable: <200 mg/dL Borderline High: 200-239 mg/dL High: > or = 240 mg/dL HDL 75 >=40 mg/dL CERNER MILLENNIUM Comment: Reference range: ??Low HDL: ?? < 40 mg/dL ??Normal: ?40-60 mg/dL ??Desirable: > 60 mg/dL LAXMI 2001; 285(19):1960-1958 Chol/HDL Ratio 2.9 ratio [facility] Comment: A Cholesterol to HDL ratio below 4:1 is desirable. ??Studies suggest that increased CAD risk occurs at ratios abov e 5 for females and above 6 for men. ? [place] Heart Association ??(htt p://www.americanheart.org) ? Lurdes Int Med, 1994; 121:641 ? AM J Med, 1998; 105(1A):48S Specimen Anatomical Collection Method Collection Time Receive d Time (Source) Location / / Volume Laterality Blood specimen 06/29/2013 1:00 PM 013 1:06 (specimen) EDT PM EDT Resulting Agency Comment Spec In Lab Andrés Mary MD CHEMISTRY ORDERABLES Performing Organization Address City/State/ZIP [place] [address] CERNER MILLENNIUM (ABNORMAL) VIT D Total Evaluation (06/29/2013 1:00 PM EDT) athologist Signature 25-OH Vit D 29 (L) [...] Mary MD CHEMISTRY ORDERABLES Performing Organization Address City/[facility]/[place] [address] CERNER MILLENNIUM TSH (06/29/2013 1:00 PM EDT) P athologist Signature TSH 0.64 0.27 - 4.20 CERNER mcIU/mL MILLENNIUM Specimen Anatomical Collection Method Collection Time Receive d Time (Source) Location / / Volume Laterality Blood specimen 06/29/2013 1:00 PM 013 1:06 (specimen) EDT PM EDT Resulting Agency Comment Spec In Lab Andrés Mary MD CHEMISTRY ORDERABLES Performing Organization Address City/[facility]/[place] [address] CERNER MILLENNIUM (ABNORMAL) Hemoglobin A1c (06/29/2013 1:00 PM EDT) Analysis Performed At Patho logist Time Signature Hemoglobin A1C 7.4 (H) 4.3 - 6.1 CERNER % MILLENNIUM Comment: The [place] Diabetes Association (ADA) has stated that HbA1c [...] -S66. Est Avg Gluc See note mg/dL [facility] Comment: Estimated Average Glucose not appropriat e [...] into estimated average glucose values. ??Diabetes Care 2008:31(8):5339-2644. Specimen Anatomical Collection Method Collection Time Receive d Time (Source) Location / / Volume Laterality Blood specimen 06/29/2013 1:00 PM 013 1:06 (specimen) EDT PM EDT Resulting Agency Comment Spec In Lab Andrés Mary MD CHEMISTRY ORDERABLES Performing Organization Address City/State/[place] [address] CERNER MILLENNIUM (ABNORMAL) Comprehensive [...] intervals supplied above were not validated at [facility]. Results from pediatri c [...] Organization Address City/State/[place] [address] [facility] documented in this encounter Visit Diagnoses Diagnosis Diabetes mellitus Type II or unspecified type diabetes kate litus without mention of complication, not stated as uncontrolled Hyperlipidemia Other and unspecified hyperlipidemia documented in this encounter Care Teams Dining Room Helper Relationship Specialty Start Date End Date Jennifer Silva APRN PCP - General 09/10/10 07/01/17 documented as of this encounter
--- OUTSIDE RECORDS SUMMARY | 2022-07-08 09:36 | XMS_ITS | Encounter Summary ---
:1945 Author Organization [facility] [place] [address] Care Team Providers Name Role Phone CarterJennifer mckeon Kelsey GILL Primary Care Provider Reason for Visit Reason Comments Follow-up 4 mo follow up CNVM, AMD OS, Cat sx OU 06-13-2011w/ Dr. Kauffman, occ dull pain OD since cat sx, pt sta dayron good vision, Occ flashes in OS since cat sx., Occ floaters OS, pt no longer notices squiggly lines in vision. Encounter Details Date Type Department Care Team Description 08/01/2011 Follow-Up Ophthalmology at [facility] Ella Dominguez AMD (age related [facility] Jade Burleson MD macular degeneration) [place] [address] [facility] (Primary Dx) [phone] DR OPHTHALMOLOGY [place] PT. [place], [place] [address] (Wo rk) Social History Tobacco Use Types Packs/Day Years Used Date Former Smoker Smokeless Tobacco: Never Used Alcohol Use Standard Drinks/Week Comments No 0 (1 standard drink = 0.6 oz pure alcoho l) Sex Assigned at Date Recorded Not on file documented as of this encounter Progress Notes Ella Mcduffie MD - 08/01/2011 1:41 PM EDT 1. S/p recent cataract surgery OU. 2. Known AMD OU. OD: end stage flat scar. 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 Asympotomatic and 20/20 near vision. Plan: Screening OCT OS, even tho no sign of active cnvm clinically. OCT: no significant fluid, therefore no injection recommended. Monitor vision (20/20 now). Call prn any metamorphopsia. RTC 6 weeks. documented in this encounter Nursing Notes 08/01/2011 12:45 PM EDT >> ELLA MCDUFFIE MD [facility] Aug 01, 2011 1:41 PM OS. Concerned about OS. >> Boni Sahu [facility] Aug 01, 2011 1:20 PM Description:Patient presents with: Follow-up - 4 mo follow up CNVM, AMD OS, Cat sx OU 06-13-2011w/ Dr. Kauffman, occ dull pain OD since cat sx, pt states good vision, Occ flashes in OS since cat sx., Occ floaters OS, pt no longer notices squiggly lines in vision. Location: left eye Duration: 4 months Condition:Improving Pain:none Associated Symptoms: better vision since cat sx., diff with reading, good distance vision (but has diff with road signs). documented in this encounter Plan of Treatment Upcoming Encounters Date Type Specialty Care Team Description 02/26/2023 Office Visit Rheumatology Toño Rodriguez PA [facility] [place], [place] [address] (Wo rk) documented as of this encounter Procedures Procedure Name Priority Date/Time Associated Diagnosis Comme nts OCT RETINA - OS - LEFT Routine 08/01/2011 2:48 PM EDT AMD (age related EYE macular degeneration) documented in this encounter Results OCT Cactmj-UJ-ESYZ EYE (08/01/2011 2:48 PM EDT) Anatomical Region Laterality Modality Other Ella Mcduffie MD OPHTHALMOLOGY SERVICES ORDER KEKE documented in this encounter Visit Diagnoses Diagnosis AMD (age related macular degeneration) - Primary Macular degeneration (senile) of retina, unspecified documented in this encounter Care Teams Telephone Engineer Relationship Specialty Start Date End Date Jennifer Silva APRN PCP - General 09/10/10 07/01/17 documented as of this encounter
--- OUTSIDE RECORDS SUMMARY | 2022-07-08 09:36 | XMS_ITS | Encounter Summary ---
:1945 Author Organization [facility] [place] [address] Care Team Providers Name Role Phone Jennifer Silva APRN Primary Care Provider Encounter Details Date Type Department Care Team Description 02/17/2013 Hospital Encounter Laboratory Samina Gomes, Psoriatic arthritis [address] RHEUMATOLOGY [address] [place], [place] [phone] [address] Social History Tobacco Use Types Packs/Day Years [...] 0 10/04 (XOPENEX HFA) 45 mcg/Actuation inhaler folic acid (FOLVITE) 1 mg Take 1 tablet by 30 tablet 3 01/1803/02/2013 tablet mouth daily. VITAMIN D 50,000 unit TAKE ONE CAPSULE BY 12 capsule 3 08/0810/06/2013 capsuleIndications: DJD MOUTH EVERY 30 DAYS (degenerative joint disease) hydrochlorothiazide Take 12.5 mg by 0 06/29/2013 (HYDRODIURIL) 25 mg mouth daily. tablet aspirin 325 mg tablet Take 81 mg by mouth 0 05/19/2022 daily. CALCIUM ORAL Take 1,600 mg by 0 2015 mouth daily. insulin regular human Inject 0 08/2013 (NOVOLIN R) 100 unit/mL subcutaneously See vial injection Admin Instructions. SLIDING SCALE DIRECTED OXYcodone-acetaminophen Take 1 tablet by 0 08/17/2013 (PERCOCET) 5-325 mg per mouth as needed. tablet diaZEPam (VALIUM) 2 mg Take 1 mg by mouth 0 03/15/2019 tablet every 6 hours as needed. Reported on 03/11/2017 esomeprazole (NEXIUM) 40 Take 40 mg by mouth 0 09/13/2019 mg capsule 2 times daily. lisinopril Take 5 mg by mouth 0 2013 (PRINIVIL;ZESTRIL) 5 mg daily. tablet LEVALBUTEROL HCL (XOPENEX Inhale 1 [...] PA [facility], [place] [address] (Wo rk) documented as of this encounter Procedures Procedure Name Priority Date/Time Associated Comments Diagnosis DIFFERENTIAL, Routine 02/17/2013 9:32 AM Results for this AUTOMATED EDT procedure are i n the results section. SEDIMENTATION RATE Routine 02/17/2013 9:32 AM Psoriatic arthri tis Results for this EDT procedure are i n the results section. CBC (WITH DIFF) Routine 02/17/2013 9:32 AM Psoriatic arthritis Results for this EDT procedure are i n the results section. CRP, CARDIAC RISK (HS Routine 02/17/2013 9:32 AM Psoriatic art hritis Results for this CRP) EDT procedure are i n the results section. documented in this encounter Results (ABNORMAL) Differential, Automated (02/17/2013 9:32 AM EDT) [facility] gist Method Time Signature Neutrophils % 77.8 (H) 34.0 - CERNER 71.0 % MILLENNIUM Neutr Abs (ANC) 12.22 (H) 1.50 - CERNER 6.30 MILLENNIUM x10(3)/mc L Lymphocytes % 15.0 (L) 19.0 - CERNER 53.0 % MILLENNIUM Lymphocytes Abs 2.4 1.0 - 3.6 CERNER x10(3)/mc MILLENNIUM L Monocytes % 6.4 4.0 - CERNER 13.0 % MILLENNIUM Monocyte Abs 1.0 0.2 - 1.0 CERNER x10(3)/mc MILLENNIUM L Eosinophils % 0.3 0.0 - 7.0 CERNER % MILLENNIUM Eosinophils Abs 0.0 0.0 - 0.5 CERNER x10(3)/mc MILLENNIUM L Basophils % 0.2 0.0 - 2.0 CERNER % MILLENNIUM Basophils Abs 0.0 0.0 - 0.2 CERNER x10(3)/mc MILLENNIUM L Immature Gran % 0.30 0.00 - CERNER 0.66 % MILLENNIUM Comment: Immature granulocytes(IG's)percentage an d absolute count will include metamyelocytes, myelocytes, and promyelo cytes. Blood smears from CBCs yielding IG's will be scanned manually for concor dance. If this scan disagrees with the automated IG or if promyelocytes are not ed, a manual differential will be performed. Amber Gran Abs 0.04 0.00 - 0.05 x10(3)/mcL CER NER MILLENNIUM Specimen Anatomical Collection Method Collection Time Receive d Time (Source) Location / / Volume Laterality Blood specimen 02/17/2013 9:32 AM 013 9:50 (specimen) EDT AM EDT Samina Gomes MD HEMATOLOGY ORDERABLES Performing Organization Address City/State/ZIP Code Phon e Number [place] [id number] CERNER MILLENNIUM High Sensitivity CRP (02/17/2013 9:32 AM EDT) athologist Signature CRP High Sens 35.1 mg/L CERNER MILLENNIUM Comment: Interpretations: 1) For cardiac risk assessment, [...] Gomes MD CHEMISTRY ORDERABLES Performing Organization Address City/[facility]/[place] [address] CERNER MILLENNIUM (ABNORMAL) Sedimentation rate (02/17/2013 9:32 AM EDT) P athologist Signature Sed Rate 30 (H) 0 - 20 CERNER mm/hr MILLENNIUM Specimen Anatomical Collection Method Collection Time Receive d Time (Source) Location / / Volume Laterality Blood specimen 02/17/2013 9:32 AM 013 9:50 (specimen) EDT AM EDT Resulting Agency Comment Spec In Lab Samina Gomes MD HEMATOLOGY ORDERABLES Performing Organization Address City/[facility] [place] [address] CERNER MILLENNIUM (ABNORMAL) CBC [...] Gomes MD HEMATOLOGY ORDERABLES Performing Organization Address City/State/[place] [address] [facility] documented in this encounter Visit Diagnoses Diagnosis Psoriatic arthritis Psoriatic arthropathy documented in this encounter Care Teams Embedded Systems Developer Relationship Specialty Start Date End Date Jennifer Silva APRN PCP - General 09/10/10 07/01/17 documented as of this encounter
--- OUTSIDE RECORDS SUMMARY | 2022-07-08 09:36 | XMS_ITS | Encounter Summary ---
:1945 Author Organization [facility] [place] [address] Care Team Providers Name Role Phone OldhamJennifer APRN Primary Care Provider Encounter Details Date Type Department Care Team Description 08/20/2011 Hospital Encounter Pulmonology at [facility] Reactive airway [facility] [place] [address] Social History Tobacco Use Types Packs/Day [...] 0 10/04 (XOPENEX HFA) 45 mcg/Actuation inhaler OXYcodone-acetaminophen Take 1 tablet by mouth 0 [...] 0 2013 (PRINIVIL;ZESTRIL) 5 mg daily. tablet insulin aspart (NOVOLOG Inject subcutaneously 0 12/04/2011 FLEXPEN) 100 unit/mL 3 times daily (with pen injection meals). Sliding scale when blood sugars are over 200. methotrexate 2.5 mg Take 8 tablets by [...] Rheumatology Toño Rodriguez PA [facility] RHEUMATOLOGY [place], [place] [address] (Wo rk) documented as of this encounter Procedures Procedure Name Priority Date/Time Associated Diagnosis Comme nts PFT SCAN Routine 08/20/2011 10:35 AM EDT documented in this encounter Results Scan Doc: PFT (08/20/2011 10:35 AM EDT) Narrative This result has an attachment that is no t available. Valente Neff Jr., MD MEDIA MGR SCAN EXT ORDR/RSLT documented in this encounter Visit Diagnoses Diagnosis Reactive airway disease Unspecified asthma documented in this encounter Care Teams Small Stock Facer Relationship Specialty Start Date End Date Jennifer Silva APRN PCP - General 09/10/10 07/01/17 documented as of this encounter
--- OUTSIDE RECORDS SUMMARY | 2022-07-08 09:36 | XMS_ITS | Encounter Summary ---
:1945 Author Organization [facility] [place] [address] Care Team Providers Name Role Phone Jennifer Silva JAIRO Primary Care Provider Reason for Visit Reason Comments Follow-up Encounter Details Date Type Department Care Team Description 05/01/2011 Follow-Up Otolaryngology at Juventino Rollins PA Throat pain (Primary [facility] Dx) [place] [address] OTOLARYNGOLOGY DEPT. [place], [place] [address] Social History Tobacco Use Types Packs/Day Years Used Date Former Smoker Smokeless Tobacco: Never Used Alcohol Use Standard Drinks/Week Comments Not Asked 0 (1 standard drink = 0.6 oz pure alcoho l) Sex Assigned at Date Recorded Not on file documented as of this encounter Last Filed Vital Signs Vital Sign Reading Time Taken Comments Blood Pressure 155/90 05/01/2011 10:06 AM EDT Pulse 70 05/01/2011 10:06 AM EDT Temperature - - Respiratory Rate - - Oxygen Saturation - - Inhaled Oxygen Concentration - - Weight 94.3 kg (208 lb) 05/01/2011 10:06 AM EDT Height 157.5 cm (5' 2) 05/01/2011 10:06 AM EDT Body Mass Index 38.04 05/01/2011 10:06 AM EDT documented in this encounter Progress Notes Juventino Solis PA - 05/01/2011 10:42 AM EDT A 66-year-old female presenting in followup for review of intermittent throat pain that began approximately seven months ago. Please see my visit of three months ago for complete details. At that visit, fiberoptic laryngoscopy was normal. I saw no evidence of abnormal lesion at the base of the tongue. Oral cavity also normal. She reports that she is still experiencing intermittent pain in the submandibular region right neck, which will occasionally radiate to the right ear, but she feels that it is improving and not as frequent. The discussion on her last visit was possibility of a CT scan, but she is allergic to the contrast dye, so she did not want to pursue that. Thus, we decided to give it a bit more time and have her rechecked in three months. Repeat examination today reveals that she is healthy-appearing in no acute distress, alert and oriented. Neck: No palpable adenopathy, mass lesion or asymmetry. She is slightly tender to palpation in the right submandibular gland. Oral cavity, tongue, floor of mouth, buccal mucosa, gums, and palate normal. I see no mucosal ulcerations, lesions or growth. Repeat fiberoptic examination, not using topical anesthetic due to a reaction to that, through the right nostril reveals no intranasal pathology. Nasopharynx, oropharynx, and hypopharynx not remarkable. Examination of the larynx, tongue base, and valleculae perfectly normal. Epiglottis normal shape and contour. Vocal cords are normal. No discrete lesion, irritation, or paralysis noted. The slight irritation I noted from her reflux last time is not significant today. Impression: Mrs. Kong continues to experience some intermittent right neck throat pain but reports it continues to improve. I did have an opportunity to review the case with Dr. Canales today. 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 Thus, we have suggested that, since she is improving, we check her again in another three to four months with the understanding should she have any worsening of her symptoms or change in her symptoms that she is to call, and she assures me that she will. The patient is comfortable with this plan. Juventino Solis PA-C [facility] [place] [address] Office Phone - documented in this encounter Plan of Treatment Upcoming Encounters Date Type Specialty Care Team Description 02/26/2023 Office Visit Rheumatology Toño Rodriguez PA [facility] RHEUMATOLOGY [place], [place] [address] (Wo rk) documented as of this encounter Visit Diagnoses Diagnosis Throat pain - Primary documented in this encounter Care Teams Rec Therapist Relationship Specialty Start Date End Date Jennifer Silva APRN PCP - General 09/10/10 07/01/17 documented as of this encounter
--- OUTSIDE RECORDS SUMMARY | 2022-07-08 09:36 | XMS_ITS | Encounter Summary ---
:1945 Author Organization [facility] [place] [address] Care Team Providers Name Role Phone Ricardo Jennifer Cole APRN Primary Care Provider Reason for Visit Reason Onset Date Comments Other 02/28/2013 discussion of treatm ent for PMR Encounter Details Date Type Department Care Team Description 02/28/2013 Telephone Rheumatology at [facility] Brittany Spivey (discussion of [facility] Jade Burleson RN treatment for PMR) [place] [address] Social History Tobacco Use Types Packs/Day Years Used Date Former Smoker 2 Quit: 07/19/19 79 Smokeless Tobacco: Never Used Alcohol Use Standard Drinks/Week Comments No 0 (1 standard drink = 0.6 oz pure alcoho l) Sex Assigned at Date Recorded Not on file documented as of this encounter Miscellaneous Notes Telephone Encounter - Brittany Spivey RN - 02/28/2013 3:17 PM EDT Called Chyna and requested all lab work and visit note be faxed here so Salma Heredia could review before contacting Dr. Silva. Telephone Encounter - Brittany Spivey RN - 02/28/2013 9:43 AM EDT Jennifer Silva is calling because she would like some guidance from Salma Heredia on treating Francisca's PMR. She has requested call back from Salma Heredia at [facility], . documented in this encounter Plan of Treatment Upcoming Encounters Date Type Specialty Care Team Description 02/26/2023 Office Visit Rheumatology Toño Rodriguez PA [facility] ER [address] MUNOZ [place], [place] [address] (Wo rk) documented as of this encounter Visit Diagnoses Not on filedocumented in this encounter Care Teams [employer].[place]. Commissioner Relationship Specialty Start Date End Date Jennifer Silva APRN PCP - General 09/10/10 07/01/17 documented as of this encounter
--- OUTSIDE RECORDS SUMMARY | 2022-07-08 09:36 | XMS_ITS | Encounter Summary ---
:1945 Author Organization [facility] [place] [address] Care Team Providers Name Role Phone Jennifer Silva APRN Primary Care Provider Reason for Visit Reason Comments Follow-up Encounter Details Date Type Department Care Team Description 12/04/2011 Follow-Up [place]ology [place] [facility] [place]isha Heredia, Psoriatic arthritis (Primary Dx); [facility] Jade mijares APRN Osteopenia; [place] [address] [facility] Encounter for long-term (cur rent) use of other medications; [phone] Vitamin D deficiency RHEUMATOLOGY DEP [place], [place] [address] Social History Tobacco Use Types Packs/Day Years Used Date Former Smoker 2 Quit: 07/19/19 77 Smokeless Tobacco: Never Used Alcohol Use Standard Drinks/Week Comments No 0 (1 standard drink = 0.6 oz pure alcoho l) Sex Assigned at Date Recorded Not on file documented as of this encounter Last Filed Vital Signs Vital Sign Reading Time Taken Comments Blood Pressure 131/78 12/04/2011 7:58 AM EST Pulse 87 12/04/2011 7:58 AM EST Temperature 36.9 ??C (98.5 ??F) 12/04/2011 7:58 AM EST Respiratory Rate 18 12/04/2011 7:58 AM EST Oxygen Saturation 97% 12/04/2011 7:58 AM EST Inhaled Oxygen Concentration - - Weight 93.9 kg (207 lb) 12/04/2011 7:58 AM EST Height 157.5 cm (5' 2) 12/04/2011 7:58 AM EST Body Mass Index 37.86 12/04/2011 7:58 AM EST documented in this encounter Patient Instructions Patient InstructionsLlAlisha thompson APRN - 12/04/2011 9:19 AM EST 1. Management of joint symptoms with acetaminophen 1000 mg po TID, prn. 2. Consider Arava (Leflunomide) if joint swelling occurs - patient to contact the clinic. 3. Reviewed AF - patient education information - indications, potential adverse effects, intended actions and time to effect. 4. Ongoing osteoporosis prevention strategies - calcium intake, vit D dietary supplementation & weight bearing exercise. 5. Reclast infusion on HOLD - continue HOLD pending ongoing evaluation of muscle aches/stiffness/gait impairment. 5. Ongoing HEP per PT referral. 6. Encouraged contact with PCP to discuss concerns associated with LE stiffness and weakness, muscleaches associated with lipitor -> scheduled appointment. 7. Vitamin D level pending. 8. Follow up in 4 months, sooner for concerns, questions or increased signs/symptoms. documented in this encounter Progress Notes Alisha Heredia APRN - 12/04/2011 9:18 AM EST Francisca Kong is a 66 y.o. female seen for ongoing evaluation and management of psoriatic arthritis. She is unaccompanied. Patient Active Problem List Diagnoses Code ??? Coronary artery disease 414.00A ??? DJD (degenerative joint disease) 715.90AJ ??? GERD (gastroesophageal reflux disease) 530.81S ??? Lipid disorder 272.9P ??? Psoriatic arthritis 696.0G ??? Reactive airway disease 493.90AK INTERVAL HISTORY: Off methotrexate completely for about two months, since PULM visit. Noted while onmethotrexate, shortness of breath, restricted feeling. Stopped med and symptoms decreased. Sinus issues - thinks associated with intermittent productive cough and dry cough is chronic. Shortness of breath with exertion. Cataract repair (bilateral) - vision is brighter. Wet macular degeneration still progressing. Seen every three months - sing drops and vitamins. Notes muscle problems - generalized pins and needles/stabbing. Seemed to occur after change in Lipitor to generic. Stopped lipitor for 1 month, will reassess on 12/22/2011. Options are to substitute non-generic. Things seem better. Worrying about neurological symptoms - weakness or muscle contractionswaist down worsening since winter months and after intubation(?) for cataract surgery. Son with new diagnosis - not muscular dystrophy -> Stiff men syndrome. Reports no joint swelling, but stiffness in neck, shoulders, wrists, hands (L>R), knees and ankles - very sore. Using cane in community. Muscle give out - although continues cardiac rehab 2 x/week. HEP stairs, weights/bands. Using TENS unit - HEP from physical therapy ([place]). Unable to use muscle relaxant (Flexeril -sedation) -> valium a couple times daily (including hs) along with percocet. Good sleep - but notrestful. BiPAP using every night. Denies recurrent illness or infection. Reports no other changes in medical, surgical, or social history. Is up to date on routine health maintenance and screening exams. ROS: GEN: (-) fever; (-) night sweats; (-) chills; (-) weight loss/gain; (+) fatigue HEENT: (-) dry eyes; (-) [...] (-) Raynauds; (-) ulcers; (-) rash Current outpatient prescriptions ordered prior to [...] 1 Appl(s), Top, 2 x daily SAT/SUN ??? ergocalciferol (ERGOCALCIFEROL) 50,000 unit capsule Take 1 capsule by mouth once a week. 9 capsule 0 ??? atorvastatin (LIPITOR) 20 mg tablet Take 20 mg by mouth daily. ??? methotrexate 2.5 mg tablet Take 8 tablets by mouth once a week. 52 tablet 3 Allergies Allergen Reactions ??? Penicillins Shortness Of [...] requests no morphine. ??? Histamine Palpitations SVT's PHYSICAL EXAMINATION: Constitutional: AAOx3, NAD, pleasant female [...] (-) rash; (-) nail pitting;(-) bruising Labs: To be completed trough PCP's office in next two weeks - added vit D level (requisition w/pt) ASSESSMENT : Inflammatory arthritis, dyspnea; osteopenia; drug safety monitoring PLAN/RECOMMENDATIONS: 1. Management of joint symptoms with acetaminophen 1000 mg po TID, prn. 2. Consider Arava (Leflunomide) if joint swelling occurs - patient to contact the clinic. 3. Reviewed AF - patient education information - indications, potential adverse effects, intended actions and time to effect. 4. Ongoing osteoporosis prevention strategies - calcium intake, vit D dietary supplementation & weight bearing exercise. 5. Reclast infusion on HOLD - continue HOLD pending ongoing evaluation of muscle aches/stiffness/gait impairment. 5. Ongoing HEP per PT referral. 6. Encouraged contact with PCP to discuss concerns associated with LE stiffness and weakness, muscleaches associated with lipitor -> scheduled appointment. 7. Vitamin D level pending. 8. Follow up in 4 months, sooner for concerns, questions or increased signs/symptoms. Addendum: DEXA EXAMINATION, 05/01/11: HISTORY: 66-year-old estrogen deficient [...] Visit Rheumatology Toño Rodriguez PA [facility] RHEUMATOLOGY [place], [place] [address] (Wo rk) documented as of this encounter Visit Diagnoses Diagnosis Psoriatic arthritis - Primary Psoriatic arthropathy Osteopenia Disorder of bone and cartilage, unspecif ied Encounter for long-term (current) use of other medications Vitamin D deficiency Unspecified vitamin D deficiency documented in this encounter Care Teams Director Inpatient Headache Program Relationship Specialty Start Date End Date Jennifer Silva APRN PCP - General 09/10/10 07/01/17 documented as of this encounter
--- OUTSIDE RECORDS SUMMARY | 2022-07-08 09:36 | XMS_ITS | Encounter Summary ---
:1945 Author Organization [facility] [place] [address] Care Team Providers Name Role Phone Jennifer Silva Kelsey GILL Primary Care Provider Encounter Details Date Type Department Care Team Description 07/14/2012 Orders Only Rheumatology at [facility] Alisha Heredia, DJD (degenerative [facility] HSE ADVISOR joint disease) [facility]note 2] (Primary Dx) [place] [phone] RHEUMATOLOGY DEP [place], [place] [address] Social History Tobacco Use Types [...] Visit Rheumatology Toño Rodriguez PA [facility] ER RHEUMATOLOGY [place], [place] [address] (Wo rk) documented as of this encounter Visit Diagnoses Diagnosis DJD (degenerative joint disease) - Prima ry Osteoarthrosis, unspecified whether gene ralized or localized, unspecified site documented in this encounter Care Teams Fiber Optic Central Office Installer Relationship Specialty Start Date End Date Jennifer Silva APRN PCP - General 09/10/10 07/01/17 documented as of this encounter
--- OUTSIDE RECORDS SUMMARY | 2022-07-08 09:36 | XMS_ITS | Encounter Summary ---
:1945 Author Organization [place] [address] Care Team Providers Name Role Phone CascadeJennifer mckeon Kelsey GILL Primary Care Provider Reason for Visit Reason Comments Macular Degeneration follow up endstage scar OD, non-exudative amd OS. Pt has noted distortion OS in center x 24 hours. Encounter Details Date Type Department Care Team Description 12/04/2011 Follow-Up Ophthalmology at [facility] Zuhair Dominguez CNVM (choroidal [facility] Jade Burleson MD neovascular membrane) [place] [address] [facility] (Primary Dx) [phone] DR OPHTHALMOLOGY DE PT. [place], [place] [address] (Wo rk) Social History Tobacco Use Types Packs/Day Years Used Date Former Smoker 2 Quit: 07/19/19 77 Smokeless Tobacco: Never Used Alcohol Use Standard Drinks/Week Comments No 0 (1 standard drink = 0.6 oz pure alcoho l) Sex Assigned at Date Recorded Not on file documented as of this encounter Progress Notes Zuhair Mcduffie MD - 12/04/2011 6:05 PM EST AMD OU: OD no longer treatable. OS normal cutter in, one microcyst of fluid. No intervention advised unless decreased vision, increasing metamorphopsia, and fluid increase on OCT. Recheck in 6 weeks. SUAD NANCE documented in this encounter Nursing Notes 12/04/2011 8:45 AM EST >> ZUHAIR MCDUFFIE MD [facility] Dec 04, 2011 6:06 PM Feels vision is about the same OS. OD is nontreatable. SUAD NANCE >> RALEIGH ORTEGASYEDAMARJIT, TAMAR [facility] Dec 04, 2011 9:14 AM Description:Patient presents with: Macular Degeneration - follow up endstage scar OD, non-exudative amd OS. Pt has noted distortion OSin center x 24 hours. Location: left eye Duration: 1 days Rapidity of Onset:sudden Severity: Condition:No Change Pain:none Modifying Factors: checks amsler-like grid daily Associated Symptoms: thinks OD may be slightly worse as well. Definitely notes slight new distortionOS x 24hrs documented in this encounter Plan of Treatment Upcoming Encounters Date Type Specialty Care Team Description 02/26/2023 Office Visit Rheumatology Toño Rodriguez PA [facility] ER DR MUNOZ [place], [place] [address] (Wo rk) documented as of this encounter Procedures Procedure Name Priority Date/Time Associated Diagnosis Comme nts OCT RETINA - OS - LEFT Routine 12/04/2011 6:04 PM EST CNVM (ch oroidal EYE neovascular membrane) documented in this encounter Results OCT [id number] EYE (12/04/2011 6:04 PM EST) Anatomical Region Laterality Modality Other Zuhair Mcduffie MD OPHTHALMOLOGY SERVICES ORDER KEKE documented in this encounter Visit Diagnoses Diagnosis 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
--- OUTSIDE RECORDS SUMMARY | 2022-07-08 09:36 | XMS_ITS | Encounter Summary ---
:1945 Author Organization [facility] [place] [address] Care Team Providers Name Role Phone Jennifer Silva Kelsey GILL Primary Care Provider Reason for Visit Reason Comments Macular Degeneration disciform OD, exudative OS i n past. Saw OD recently and needs new glasses Encounter Details Date Type Department Care Team Description 08/23/2012 Follow-Up Ophthalmology at [facility] Ella Dominguez Macular degeneration [facility] Jade Burleson MD (Primary Dx) [place] [address] [facility] [phone] DR OPHTHALMOLOGY DEPT. [place], [place] [address] Social History Tobacco Use Types Packs/Day Years Used Date Former Smoker 2 Quit: 07/19/19 79 Smokeless Tobacco: Never Used Alcohol Use Standard Drinks/Week Comments No 0 (1 standard drink = 0.6 oz pure alcoho l) Sex Assigned at Date Recorded Not on file documented as of this encounter Progress Notes Ella Mcduffie MD - 08/23/2012 12:09 PM EST 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 OS exudative in past, but not recently. 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 Plan: Recheck in 4 months and OCT OS then. documented in this encounter Nursing Notes 08/23/2012 11:15 AM EST >> ELLA MCDUFFIE MD ThuAug 23, 2012 12:10 PM Hx of exudative AMD OS, and a lucentis shot which was effective. No recent recurrences. OD has disciform scar. >> NONA DANIELLE LPN Mon Aug 23, 2012 11:31 AM Description:Patient presents with: Macular Degeneration - disciform OD, exudative OS in past. Saw OD recently and needs new glasses Location: Right-left eye Duration:years Rapidity of Onset:gradual Severity: 4 Condition:unchanged Pain:0 Modifying Factors: OCT Associated Symptoms:none at present documented in this encounter Plan of Treatment Upcoming Encounters Date Type Specialty Care Team Description 02/26/2023 Office Visit Rheumatology Toño Rodriguez PA [facility] RHEUMATOLOGY [place], [place] [address] (Wo rk) documented as of this encounter Procedures Procedure Name Priority Date/Time Associated Diagnosis Comme nts OCT RETINA - OS - LEFT Routine 08/23/2012 12:08 PM EST Macular degeneration EYE documented in this encounter Results OCT [id number] EYE (08/23/2012 12:08 PM EST) Anatomical Region Laterality Modality Other Specimen (Source) Anatomical Location Collection Method / Collectio n Time Received Time / Laterality Volume Ella Mcduffie MD OPHTHALMOLOGY SERVICES ORDER KEKE documented in this encounter Visit Diagnoses Diagnosis Macular degeneration - Primary Macular degeneration (senile) of retina, unspecified documented in this encounter Care Teams Standard Machine Stitcher Relationship Specialty Start Date End Date Jennifer Silva APRN PCP - General 09/10/10 07/01/17 documented as of this encounter
--- OUTSIDE RECORDS SUMMARY | 2022-07-08 09:36 | XMS_ITS | Encounter Summary ---
:1945 Author Organization [facility] [place] [address] Care Team Providers Name Role Phone Jennifer Silva Kelsey GILL Primary Care Provider Reason for Visit Reason Onset Date Comments Other 05/23/2013 ill Encounter Details Date Type Department Care Team Description 05/23/[address] [facility] Brittany Spivey RN Other (ill) [place] [address] Social History Tobacco Use Types Packs/Day Years Used Date Former Smoker 2 Quit: 07/19/19 79 Smokeless Tobacco: Never Used Alcohol Use Standard Drinks/Week Comments No 0 (1 standard drink = 0.6 oz pure alcoho l) Sex Assigned at Date Recorded Not on file documented as of this encounter Miscellaneous Notes Telephone Encounter - Brittany Spivey RN - 05/23/2013 9:09 AM EDT Francisca called today to say she started developing a sore throat on 05/19/13 after she saw Salma. It has progressed to a deep cough with some white sputum. She also says it occasionally makes her SOB. She was wondering what to do about her methotrexate and prednisone. Told her she should hold the methotrexate if she feels she is becoming ill. She said, she took it last evening. She is also wondering if she should follow up with her pcp. Told her I thought that would be a good idea. She will call her today and keep us posted. documented in this encounter Plan of Treatment Upcoming Encounters Date Type Specialty Care Team Description 02/26/2023 Office Visit Rheumatology Toño Rodriguez PA [facility] RHEUMATOLOGY [place], [place] [address] (Wo rk) documented as of this encounter Visit Diagnoses Not on filedocumented in this encounter Care Teams Shellfish Processing Machine Tender Relationship Specialty Start Date End Date Jennifer Silva APRN PCP - General 09/10/10 07/01/17 documented as of this encounter
--- OUTSIDE RECORDS SUMMARY | 2022-07-08 09:36 | XMS_ITS | Encounter Summary ---
:1945 Author Organization [facility] [place] [address] Care Team Providers Name Role Phone OldhamJennie mckeonhumphrey Cole APRN Primary Care Provider Reason for Visit Reason Onset Date Comments Other 02/10/2013 followup to visit Encounter Details Date Type Department Care Team Description 02/10/2013 Telephone Rheumatology at [facility] Brittany Spivey (followup to [facility] Jade Burleson RN visit) [place] [address] Social History Tobacco Use Types Packs/Day Years Used Date Former Smoker 2 Quit: 07/19/19 79 Smokeless Tobacco: Never Used Alcohol Use Standard Drinks/Week Comments No 0 (1 standard drink = 0.6 oz pure alcoho l) Sex Assigned at Date Recorded Not on file documented as of this encounter Miscellaneous Notes Telephone Encounter - Brittany Spivey RN - 02/10/2013 1:51 PM EDT Called Francisca back and discussed yesterday's labs with her, particularly wbc, crp and esr. Explained to her that Salma would like another set of labs drawn next week. She says she will be down here next to see another md so she will have drawn then. We discussed the possibility of polymyalgia rheumatica and explained to her how to reach ACR website for further information. She said she was ableto review on the internet and did not need info mailed. Explained to her that once labs were back next week Salma would probably prescribe prednisone until her next visit and possibly later on methotrexate might be considered. Francisca verbalized understanding of this and said she remembered discussing this with Salma.Reinforced with her that any signs of infection for example: UTI, sinus, cough, fever, chills to see her pcp right away. She verbalized understanding of this. She is relieved that Salma still wants to be her doctor. She says she felt very hurt that Salma was not as bright and conversational as usual. Explained that possibly she was having a hectic day and may not have had as much time to spend on social things. She agreed that that was a possibility and wanted sba underwriter to mention to Salma, howaprilch she loves having her as my doctor. Telephone Encounter - Brittany Spivey RN - 02/10/2013 9:28 AM EDT Francisca is calling for a couple of reasons today. First she felt she did not answer one of Salma's questions appropriately so she wanted to let her know, her hips have been hurting as well as her pelvis throughout the winter, making it difficult for her to get on and off the toilet and to walk. She also says she was concerned that Salma was not with me during the appointment. She is concerned that Salma may not want to be her provider anymore and if that is the case she would like Salma to call her. She says she is willing to try any medications to end the pain, but she is really scared. documented in this encounter Plan of Treatment Upcoming Encounters Date Type Specialty Care Team Description 02/26/2023 Office Visit Rheumatology Toño Rodriguez PA [facility] [address] [place], [place] [address] (Wo rk) documented as of this encounter Visit Diagnoses Not on filedocumented in this encounter Care Teams Chain Mortiser Operator Relationship Specialty Start Date End Date Jennifer Silva APRN PCP - General 09/10/10 07/01/17 documented as of this encounter
--- OUTSIDE RECORDS SUMMARY | 2022-07-08 09:36 | XMS_ITS | Encounter Summary ---
:1945 [place] [address] Care Team Providers Name Role Phone Jennifer Silva APRN Primary Care Provider Reason for Visit Reason Onset Date Comments Medication Refill 03/02/2013 Encounter Details Date Type Department Care Team Description 03/02/2013 Refill Rheumatology at [facility] Alisha Heredia APRN [facility] [place] [address] RHEUMATOLOGY DEPT. [phone] [place], [place] [address] (Wo rk) Social History Tobacco [...] 02/26/2023 Office Visit Rheumatology Toño Rodriguez, PA [facility] [address] [place] [address] (Wo rk) documented as of this encounter Visit Diagnoses Not on filedocumented in this encounter Care Teams Plastics Fabricator Or Welder Relationship Specialty Start Date End Date Jennifer Silva APRN PCP - General 09/10/10 07/01/17 documented as of this encounter
--- OUTSIDE RECORDS SUMMARY | 2022-07-08 09:36 | XMS_ITS | Encounter Summary ---
:1945 Author Organization [facility] Address One [facility] [address] Care Team Providers Name Role Phone Jennifer Silva APRN Primary Care Provider Encounter Details Date Type Department Care Team Description 05/01/2011 Hospital Encounter XRay at [address] [place] [address] Social History Tobacco Use Types Packs/Day [...] 0 10/04 (XOPENEX HFA) 45 mcg/Actuation inhaler atorvastatin (LIPITOR) Take 20 mg by mouth [...] lungs every 8 INHL) hours as needed. ergocalciferol Take 1 capsule by 9 capsule 0 03/26/2011 (ERGOCALCIFEROL) 50,000 mouth once a week. unit capsule MAGNESIUM CHLORIDE Take by mouth daily as 0 01/2903/15/2019 (SLOW-MAG ORAL) needed. Calcipotriene (DOVONEX) 1 Appl(s), Top, 2x 0 09/1902/09/2013 0.005 % Crea daily M-W-F CYANOCOBALAMIN, VITAMIN 0 10/04/2010 0 03/07/2015 B-12, (VITAMIN B-12 ORAL) folic acid (FOLVITE) 1 1 mg PO Once daily 0 10/0402/09/2013 mg tablet fluticasone (FLOVENT 2 Puff(s), Inh, Twice 0 09/1804/29/2016 HFA) 110 mcg/Actuation daily inhaler hydroCODone-acetaminoph 0 10/04/2010 1 en (VICODIN) 5-500 mg per tablet lidocaine (LIDODERM) 5 1 Patch(es), Top, 12 0 07/27/2012 %(700 mg/patch) hrs on/12 hrs off clobetasol (TEMOVATE) 1 Appl(s), Top, 2 x 0 10/0402/09/2013 0.05 % cream daily SAT/SUN traMADol (ULTRAM) 50 mg 50 MG = 1 Tablet(s), 0 08/01/2011 tablet PO, Q8H,PRN documented as of this encounter Plan of Treatment Upcoming Encounters Date Type Specialty Care Team Description 02/26/2023 Office Visit Rheumatology Toño Rodriguez PA [facility] [address] [place], [place] [address] (Wo rk) documented as of this encounter Procedures Procedure Name Priority Date/Time Associated Diagnosis Comme nts DXA CENTRAL SPINE, Routine 05/01/2011 8:30 AM Osteoporosis, Re sults for this HIP, AND/OR WHOLE EDT unspecified procedure are in BODY (GENERIC) the results section. documented in this encounter Results DEXA CENTRAL-SPINE, HIP, AND/OR WHOLE BODY (05/01/2011 8:30 AM EDT) Anatomical Region Laterality Modality C-spine, Hip N/A Radiographic Imaging Specimen (Source) Anatomical Collection Method Collection Time Re ceived Time Location / / Volume Laterality 05/01/2011 8:30 AM EDT Narrative 05/02/2011 10:24 AM EDT DEXA EXAMINATION, 05/01/11: ?? HISTORY: ??66-year-old estrogen deficien t white female on low-dose prednisone. ?? COMPARISON STUDY: ??2008. ?? FINDINGS: ?? The left forearm and left hip measurements are acquired. ??When compared to the 2008 examination, there is a 14.8% increase in her left hip and 3.3% decrease in her distal one-third ra dius, respectively. ?? IMPRESSION: Her lowest T-score of -2.2 is from her f emoral neck. ??This fulfills the WHO classification for low bone mass or oste openia. ??There is discordant change with a small decrease in her left distal forearm and a marked increase in her left hip measurements. ??Discordant alvarado ges are not uncommon and consider continued monitoring, if indicated. ?? ESTIMATING FRACTURE RISK: ?? The relationship between bone mineral de nsity [...] independent, risk factors in addition to BMD. ?? The World Health Organization (WHO) has developed a fracture risk prediction tool that calculates a ten-year risk of major osteoporotic fracture based on femoral neck bone density measurements a nd nine clinical risk factors for individuals who have not been treated fo r osteoporosis. This is available through an interactive web-based [employer] ce (http://www.shef.ac.uk/FRAX/) and can be used to [...] the dose-response associated with most risk factors. ??For example, the significant increase in risk associated [...] which you ar e encouraged to review. ?? DEXA data sheets with BMD measurements a nd plots are available in CIS under Radiology Images. Paper copies will be sent to providers without CIS access. If you have received this report without the d jada sheet and do not have access to CIS, please contact Radiology Fish Roe Technician at [phone] Thursday thru Thursday 8am-4pm. Procedure Note Rea Serrano MD - 05/02/2011Formatt ing of this note might be different from the original. DEXA EXAMINATION, 05/01/11: HISTORY: 66-year-old estrogen deficient [...] uncommon and consider continued monitoring, if indicated. ESTIMATING FRACTURE RISK: The relationship between bone mineral de nsity [...] measurements a nd plots are available in CIS under Radiology Images. Paper copies will be sent to providers without CIS access. If you have received this report without the d jada sheet and do not have access to CIS, please contact Radiology Fish Roe Technician at [phone] Thursday thru Thursday 8am-4pm. Alisha Heredia APRN IMKelsey DEXA ORDERABLES documented in this encounter Visit Diagnoses Diagnosis Osteoporosis Osteoporosis, unspecified documented in this encounter Care Teams Forestry Contractor Relationship Specialty Start Date End Date Jennifer Silva APRN PCP - General 09/10/10 07/01/17 documented as of this encounter
--- OUTSIDE RECORDS SUMMARY | 2022-07-08 09:36 | XMS_ITS | Encounter Summary ---
:1945 Author Organization [facility] [place] [address] Care Team Providers Name Role Phone Jennifer Silva APRN Primary Care Provider Reason for Visit Reason Comments Coronary Artery Disease follow up of CV issues Encounter Details Date Type Department Care Team Description 07/27/2012 Follow-Up Cardiology at [facility] Jeremy Keane, Coronary artery disease; [facility] [place] [address] CARDIOLOGY DEPT. [place], [place] [address] (Wo rk) Social History Tobacco [...] Sign Reading Time Taken Comments Blood Pressure 144/70 07/27/2012 1:33 PM EDT Pulse 88 07/27/2012 1:33 PM EDT Temperature - - Respiratory Rate 18 07/27/2012 1:33 PM EDT Oxygen Saturation 97% 07/27/2012 1:33 PM EDT Inhaled Oxygen Concentration - - Weight 90.3 kg (199 lb) 07/27/2012 1:33 PM EDT Height 165.1 cm (5' 5) 07/27/2012 1:33 PM EDT Body Mass Index 33.12 07/27/2012 1:33 PM EDT documented in this encounter Progress Notes Jeremy Keane MD - 07/27/2012 2:14 PM EDT Cardiology Clinic Note History: Francisca Kong is a 67 y.o. female presenting for routine office follow up of cardiovascular problems. I have not seen this lady since December of 2010. She reports that she was noting some jaw ache that started this spring, mainly at rest. She has some symptoms at rest of similar nature today while talking with me. She underwent a stress echo through Dr. Irving as an assessment of the this discomfort and the study was reported as OK. She has been working on her diabetic control and weight. Her medication regimen is stable. She has her blood work through Jennifer Silva and the values were satisfactory. She is now on rosuvastatin given her prior sensitivity of atorvastatin. No PND, orthopnea, presyncope or syncope. Allergies as of 07/27/2012 - Review Complete 07/27/2012 Allergen Reaction Noted ??? Penicillins Shortness Of Breath and Rash ??? Sulfa (sulfonamide antibiotics) Hives ??? Epinephrine Palpitations ??? Codeine phos Palpitations ??? Fluoxetine hcl Shortness Of Breath and Palpitations ??? Citalopram hydrobromide Shortness Of Breath ??? Marlyn type anesthetics Shortness Of Breath ??? Amide type anesthetics Shortness Of Breath ??? Escitalopram oxalate Shortness Of Breath ??? Lidocaine Palpitations ??? Iodine-iodine containing Rash ??? Nsaids Palpitations and Other (See Comments) ??? Ether Hives ??? Beta-blockers (beta-adrenergic blocking agts) ??? Montelukast sodium Diarrhea and Nausea And Vomiting ??? Morphine sulfate ??? Histamine Palpitations ??? Unable to find (unclassified drug) 06/09/2012 Current Outpatient Rx Name Route Sig Dispense Refill ??? DIAZEPAM 2 MG ORAL TAB Oral Take 1 mg by mouth daily as needed. ??? HYDROCHLOROTHIAZIDE 25 MG ORAL TAB Oral Take 12.5 mg by mouth daily. ??? ERGOCALCIFEROL (VITAMIN D2) 74420 UNIT ORAL CAP Oral Take by mouth. 1 tab weekly x 6 wks, then every 2 weeks x 3 doses; then monthly 9 capsule 1 ??? ASCORBIC ACID 1000 MG ORAL TAB Oral Take 1,000 mg by mouth every 3 days. ??? ASPIRIN 325 MG ORAL TAB Oral Take 325 mg by mouth daily. ??? CALCIUM ORAL Oral Take 1,600 mg by mouth daily. ??? OMEGA 3 ORAL Oral Take 4,800 mg by mouth daily. ??? ROSUVASTATIN 5 MG ORAL TAB Oral Take 5 mg by mouth daily. ??? INSULIN REGULAR HUMAN 100 UNIT/ML INJ SOLN Subcutaneous Inject subcutaneously See Admin Instructions. SLIDING SCALE DIRECTED ??? OXYCODONE-ACETAMINOPHEN 5-325 MG ORAL TAB Oral Take 1 tablet by mouth as needed. ??? DIAZEPAM 2 MG ORAL TAB Oral Take 1 mg by mouth every 6 hours as needed. ??? DIGOXIN 125 MCG ORAL TAB Oral Take 62.5 mcg by mouth daily. ??? ESOMEPRAZOLE MAGNESIUM 40 MG ORAL CPDR Oral Take 40 mg by mouth 2 times daily. ??? LISINOPRIL 5 MG ORAL TAB Oral Take 5 mg by mouth daily. ??? ACETAMINOPHEN 500 MG ORAL TAB Oral Take 1,000 mg by mouth 3 times daily. Half tablet = 1MG ??? XOPENEX CONCENTRATE INHL Inhalation Inhale 1 Nebules into the lungs every 8 hours as needed. ??? SLOW-MAG ORAL Oral Take 99 mg by mouth 2 times daily. ??? DOVONEX 0.005 % TOP CREA Topical 1 Appl(s), Top, 2x daily ??? VERAPAMIL 40 MG ORAL TAB Oral 40 mg, PO, Three times daily ??? VITAMIN B-12 ORAL Oral ??? FOLIC ACID 1 MG ORAL TAB Oral 1 mg PO Once daily ??? FLOVENT HFA 110 MCG/ACTUATION INHL AERO Inhalation 2 Puff(s), Inh, Twice daily ??? XOPENEX HFA 45 MCG/ACTUATION INHL HFAA Inhalation 2 Puff(s), Inh, Q6H ??? CLOBETASOL 0.05 % TOP CREA Topical 1 Appl(s), Top, 2 x daily SAT/SUN ??? LIDODERM 5 %(700 MG/PATCH) TOP PTMD Topical 1 Patch(es), Top, 12 hrs on/12 hrs off Physical Exam: Blood pressure 144/70, pulse 88, resp. rate 18, height 165.1 cm (5' 5), weight 90.266 kg (199 lb), SpO2 97.00%. General: WD, WN overweight lady HEENT: Eyes: No conjunctival pallor Neck: No JVD, carotid bruits or lymphadenopathy Lungs: Clear to A+P Cor: RR, normal S1, S2. PMI not displaced. No murmur or gallop Abd: soft, no L/S/K enlargement or bruits Ext: Pulses preserved, no edema, cyanosis or clubbing Neuro: physiologic Skin: Without rash or icterus Lab data:: the only interval data is Hgb A1c. Cardiovascular Problem list and Plan of care: 1. CAD, severe, single vessel (LAD) with successful NAYAN (08/26), essentially asymptomatic. 2. Preserved LV systolic function 3. Lipid disorder, statin sensitive 4. History of SVT, no recurrences I talked with the patient about her jaw pain that clearly is consistent with a noncardiac mechanism.The stress echo was helpful and she has been able to stack wood and do other activities of moderate exertion without provoking similar discomfort. She mentions that [employer] is requesting that she switch from the rosuvastatin to either simvastatin or pravastatin for cost rationale. I am opposed to this idea given her apparent tolerance for the low-dose rosuvastatin but the issue could be revisited if forced by her carrier. I reviewed the active treatment and ongoing [...] plan of care. documented in this encounter Procedure Notes Provider, Scanning - 09/14/2012 10:45 AM ESTAssociated Order(s): SCAN DOC: STRESS TEST Provider, Scanning - 09/14/2012 10:40 AM ESTAssociated Order(s): SCAN DOC: ECHO documented in this encounter Plan of Treatment Upcoming Encounters Date Type Specialty Care Team Description 02/26/2023 Office Visit Rheumatology Toño Rodriguez PA [facility] [place]ATOLOGY [place], [place] [address] (Wo rk) documented as of this encounter Procedures Procedure Name Priority Date/Time Associated Diagnosis Comme nts STRESS TEST SCAN 09/14/2012 10:45 AM Resu lts for this EST procedure are i n the results section. ECHO SCAN (SCAN) 09/14/2012 10:40 AM Resu lts for this EST procedure are i n the results section. documented in this encounter Results SCAN DOC: STRESS TEST (09/14/2012 10:45 AM EST) Narrative 09/14/2012 10:48 AM EST Procedure Note Provider, Scanning - 09/14/2012 10:45 AM EST Scanning Provider MEDIA MGR SCAN EXT ORDR/RSLT SCAN DOC: ECHO (09/14/2012 10:40 AM EST) Narrative 09/14/2012 10:44 AM EST Procedure Note Provider, Scanning - 09/14/2012 10:40 AM EST Scanning Provider MEDIA MGR SCAN EXT ORDR/RSLT documented in this encounter Visit Diagnoses Diagnosis Coronary artery disease Coronary atherosclerosis of unspecified type of vessel, [place]ct[place] or graft Lipid disorder Unspecified disorder of lipoid metabolis m documented in this encounter Care Teams Charting Clerk Relationship Specialty Start Date End Date Jennifer Silva APRN PCP - General 09/10/10 07/01/17 documented as of this encounter
--- OUTSIDE RECORDS SUMMARY | 2022-07-08 09:36 | XMS_ITS | Encounter Summary ---
:1945 Author Organization [facility] Address One [facility] [place] [address] Care Team Providers Name Role Phone Jennifer Silva Kelsey GILL Primary Care Provider Reason for Visit Reason Comments Diabetes Encounter Details Date Type Department Care Team Description 06/29/2013 Office Visit Endocrinology at [facility] Edna Foley, Type II or [facility] unspecified type Drive [facility] [place] [place] [address] without mention of [phone] ENDOCRINOLOGY complication, not DEPT. stated as [place], [place] [address] uncontrolled (Primary [phone] Dx) (Work) Social History Tobacco Use Types Packs/Day Years Used Date Former Smoker 2 Quit: 07/19/19 77 Smokeless Tobacco: Never Used Alcohol Use Standard Drinks/Week Comments No 0 (1 standard drink = 0.6 oz pure alcoho l) Sex Assigned at Date Recorded Not on file documented as of this encounter Last Filed Vital Signs Vital Sign Reading Time Taken Comments Blood Pressure 122/63 06/29/2013 2:05 PM EDT Pulse 83 06/29/2013 2:05 PM EDT Temperature - - Respiratory Rate - - Oxygen Saturation - - Inhaled Oxygen Concentration - - Weight 87.1 kg (192 lb) 06/29/2013 2:05 PM EDT Height - - Body Mass Index 35.12 06/29/2013 1:35 PM EDT documented in this encounter Patient Instructions Patient InstructionsEdna Mortensen APRN - 06/29/2013 2:22 PM EDT Take regular insulin at same time of prednisone on non exercise days. Have breakfast no later than 1/2 hr after the insulin documented in this encounter Progress Notes Edna Mortensen APRN - 06/30/2013 5:05 PM EDT DATE OF VISIT: 06/29/2013 REASON FOR VISIT: Followup type 2 DM in continued good overall control. BRIEF HISTORY: Presents for followup. Had appointment in rheumatology earlier today. States since she has taking the prednisone she has been taking low doses of insulin and glucose levels can vary quite a bit. DIABETES REGIMEN: Regular insulin, varies the dose, 1 to 3 units in a.m. and occasionally in p.m. Prevention strategies are up to date. REVIEW OF SYSTEMS: Depression and Mood: Takes medications. States she is doing okay. Eyes: Followed closely by Dr. Mcduffie. Has macular degeneration. No recent GI symptoms. Appetite is good. She desires weight loss. Sleep Pattern: Uses BiPAP. Extremities: Has fibromyalgia and psoriatic arthritis, ambulates with a cane. PHYSICAL EXAMINATION: Appearance: She appears in good health. She is overweight. Weight 192 pounds. Blood pressure 122/63. Eyes: No retinopathy by green light exam. Neck: No thyromegaly or lymphadenopathy. Heart: Regular rate and rhythm. No murmurs. Lungs are clear to auscultation. Feet: Skin is normal. Pulses are normal. Neuro: Normal sensation to 10 g of pressure. Has podiatry care with Dr. Garcia. SBGM: Three times a day. DX CODE: 250.00. IMPRESSION AND PLAN: Reviewed written blood glucose log. The patient is using regular insulin 1 to 3 units while taking prednisone which is at 7.5 mg now and will be slowly decreasing. Advised okay to take the regular insulin with the meal and with the prednisone in a.m. She sometimes takes it in the middle of the morning. She does attend an exercise class and does not want to have a low glucose level during the class. Hemoglobin A1c 7.4%, previous was 7.1%. Reviewed prevention and treatment of hypoglycemia. This was a 27-minute office visit with 26 minutes spent counseling [id number] with the patient in the management of glucose levels, advising to take the regular insulin 30 minutes before the meal or nonexercise days, but to continue taking it after her exercise class since she is very worried about having a low glucose level on exercise days. Return to office in one year with Dr. Pulido. Will check hemoglobin A1c, CMP, TSH, HDL, DLDL, and microalbumin. Pt called COATING LINE WORKER 07/01 to advise that she is taking novolog insulin. COATING LINE WORKER advised to always take novolog before food to prevent hypoglycemia. Recent Results (from the past 72 hour(s)) COMPREHENSIVE METABOLIC PANEL (NON-FASTING) Component Value Range Glucose Lvl 198 60 - 199 mg/dL BUN 20 (*) 8 - 18 mg/dL Creatinine 0.80 0.70 - 1.20 mg/dL Sodium 138 135 - 145 mmol/L Potassium 3.6 3.5 - 5.0 mmol/L Chloride 96 (*) 98 - 107 mmol/L CO2 27 22 - 31 mmol/L Anion Gap 15 5 - 15 mmol/L Calcium 10.0 8.5 - 10.5 mg/dL Total Protein 7.1 6.4 - 8.3 gm/dL Albumin 4.3 3.2 - 5.2 gm/dL AST 17 0 - 30 unit/L ALT 22 0 - 30 unit/L Alk Phos 68 40 - 104 unit/L Total Bilirubin 0.3 0.2 - 1.3 mg/dL Bili, Direct 0.1 0.0 - 0.3 mg/dL Estimated GFR >60 >=60 HEMOGLOBIN A1C Component Value Range Hemoglobin A1C 7.4 (*) 4.3 - 6.1 % Est Avg Gluc See note TSH Component Value Range TSH 0.64 0.27 - 4.20 mcIU/mL VIT D TOTAL EVALUATION Component Value Range 25-OH Vit D Total 29 (*) 30 - 100 ng/mL HDL/CHOL PROFILE Component Value Range Chol, Total 214 (*) <=199 mg/dL HDL 75 >=40 mg/dL Chol/HDL Ratio 2.9 LDL CHOLESTEROL, DIRECT Component Value Range LDL Chol Direct 116 (*) <=99 mg/dL MICROALBUMIN, URINE, RANDOM Component Value Range U Creatinine 60 U Ran Malb Conc <3.0 U Ran Malb Calc <5 documented in this encounter Plan of Treatment Upcoming Encounters Date Type Specialty Care Team Description 02/26/2023 Office Visit Rheumatology Toño Rodriguez, PA [facility] RHEUMATOLOGY [place], [place] [address] (Wo rk) documented as of this encounter Visit Diagnoses Diagnosis Type II or unspecified type diabetes kate litus without mention of complication, not stated as uncontrolled - Primary documented in this encounter Care Teams Shoe Worker Relationship Specialty Start Date End Date Jennifer Silva APRN PCP - General 09/10/10 07/01/17 documented as of this encounter
--- OUTSIDE RECORDS SUMMARY | 2022-07-08 09:36 | XMS_ITS | Encounter Summary ---
:1945 Author Organization [facility] [address] Care Team Providers Name Role Phone Jennifer Ledesma APRN Primary Care Provider Reason for Visit Reason Comments Follow-up Encounter Details Date Type Department Care Team Description 04/12/2013 Follow-Up Rheumatology at [facility] Alisha Heredia, Encounter for [facility] Jade mijares APRN long-term (current) [place] [address] [facility] use of other [phone] DR ramses (Primary RHEUMATOLOGY DEP T. Dx) [place], [place] [address] Social History Tobacco Use Types Packs/Day Years Used Date Former Smoker 2 Quit: 07/19/19 79 Smokeless Tobacco: Never Used Alcohol Use Standard Drinks/Week Comments No 0 (1 standard drink = 0.6 oz pure alcoho l) Sex Assigned at Date Recorded Not on file documented as of this encounter Last Filed Vital Signs Vital Sign Reading Time Taken Comments Blood Pressure 124/84 04/12/2013 11:23 AM EDT Pulse 94 04/12/2013 11:23 AM EDT Temperature 36.9 ??C (98.4 ??F) 04/12/2013 11:23 AM EDT Respiratory Rate - - Oxygen Saturation 96% 04/12/2013 11:23 AM EDT Inhaled Oxygen Concentration - - Weight 86.6 kg (191 lb) 04/12/2013 11:23 AM EDT Height 157.5 cm (5' 2) 04/12/2013 11:23 AM EDT Body Mass Index 34.93 04/12/2013 11:23 AM EDT documented in this encounter Progress Notes Alisha Heredia, ENGINEERING GEOLOGIST - 04/12/2013 11:33 AM EDT Francisca Kong is a 68 [...] as follows: Updates in BOLD italics. ?? Labs pending. Reviewed most recent labs. ?? Repeat CBC, ESR and CRP -> 1 week. Completed at OSH -> reviewed. ?? Prednisone 10 mg po QAM x 14 d; 7.5 mg po QAM x 14 d; 5 mg po QAM until seen in follow up. Reports felt great and pain had subsided in shoulders, arms, hands, hips and knees after resuming prednisone 10 mg and initiating methotrexate. Recurrent pain and stiffness, without swelling, most notable init ially in hips and legs with taper at 7.5 mg around day 13/14. More pain and stiffness, with feeling of swelling in left wrist at prednisone 5 mg po daily. Reports fatigue and burning pain in legs in the evening. Notes increased weight with steroid (184-191 lbs in last couple months. Numbness in left hand index finger, (+/-) numbness in D 3/4 left hand - longstanding -> uncertain of cause. Intermittent night sweats; no chills or fever. ?? Reassess inflammatory markers at follow up. Repeated at PCP's -> thinks in the low 30 range. ?? Case review with attending (BRANDY). ?? Would add MTX 15 mg po weekly, folic acid daily. Has taken MTX x 3 weeks. (+) oral discomfort - taking folic acid 1 mg po daily. ?? Monitor for signs of infection. Ongoing recommendation. ?? Phone contact with JENNIFER LEDESMA APRN on 02/28/2013. Reviewed recommendations after review. Will be seen in PCP's office in early March. Follow up scheduled in coming week. When last seen, reported throughout the winter, pain in [...] and no evidence of fracture. JENNIFER LEDESMA, ISABELANinitiated steroids in October 2012 - 20 mg [...] 6 tablets by mouth once a week. 24 tablet 3 ??? folic acid (FOLVITE) 1 mg tablet Take 1 tablet by mouth daily. 30 tablet 3 ??? predniSONE (DELTASONE) 5 mg tablet Take 10 mg for 14 days, then 7.5 mg for 14 days, then 5 mg daily. 63 tablet 0 ??? VITAMIN D 50,000 unit capsule TAKE [...] Drug) All Antihistamines. PHYSICAL EXAMINATION: Filed Vitals: 04/12/13 1123 BP: 124/84 Pulse: 94 Temp: 36.9 ??C (98.4 ??F) TempSrc: Oral Height: 157.5 cm (5' 2) Weight: 86.637 kg (191 lb) SpO2: 96% Constitutional: Pleasant female sitting comfortably. HEENT: Normocephalic; [...] Wrists: Functional ROM; (-) effusion; (+) tenderness at left radial aspect/dorsum -> (-) erythema or warmth. ?? MCPs/PIPs: Functional [...] muscle pain, psoriasis, osteoarthritis, chronic steroid use; osteopenia. PLAN/RECOMMENDATIONS: ?? Resume prednisone 7.5 mg po daily; ongoing calcium and vitamin D dietary intake and supplementation. ?? Continue methotrexate 15 mg po weekly. ?? Increase folic acid to 2 mg [...] Rodriguez PA [facility] RHEUMATOLOGY [place], [place] [address] (Wo rk) documented as of this encounter Results (ABNORMAL) CBC (with Diff) (02/13/2014 2:50 PM [...] MCHC 33.2 32.0 - CERNER 36.5 gm/dL MILLENNIUM Platelets 247 145 - 370 CERNER x10(3)/mcL [facility]ILLENNIUM RDWSD 45.4 35.0 - CERNER 46.0 fL [facility] RDWCV 13.4 10.9 - CERNER 14.4 % [facility] MPV 11.1 9.0 - 12.0 CERNER [facility] Specimen Anatomical Collection Method Collection Time Receive d Time (Source) Location / / Volume Laterality Blood specimen 02/13/2014 2:50 PM 014 2:56 (specimen) EDT PM EDT Resulting Agency Comment Spec In Lab Maria A Suarez DO HEMATOLOGY ORDERABLES Performing Organization Address City/[facility] [place] [address] [facility] High Sensitivity CRP (02/13/2014 2:50 PM EDT) athologist Signature CRP High Sens 2.3 mg/L [facility] Comment: Interpretations: 1) For accurate cardiac risk [...] Suarez DO CHEMISTRY ORDERABLES Performing Organization Address [facility] Code Phon e Number [place] [address] [facility] documented in this encounter Visit Diagnoses Diagnosis Encounter for long-term (current) use of other medications - Primary documented in this encounter Care Teams Psychologist Chief Relationship Specialty Start Date End Date Jennifer Ledesma APRN PCP - General 09/10/10 07/01/17 documented as of this encounter
--- OUTSIDE RECORDS SUMMARY | 2022-07-08 09:36 | XMS_ITS | Encounter Summary ---
:1945 Author Organization [facility] Address [facility] [place] [address] Care Team Providers Name Role Phone Big HornJennie mckeonhumphrey Cole APRN Primary Care Provider Reason for Visit Reason Onset Date Comments Other 12/26/2011 questions getting vi tamin D level drawn Encounter Details Date Type Department Care Team Description 12/26/2011 Telephone Rheumatology at [facility] Carlene Meraz Other (questions [facility] Jade mijares [place] [address] drawn) [phone] Social History Tobacco Use Types Packs/Day Years Used Date Former Smoker 2 Quit: 07/19/19 77 Smokeless Tobacco: Never Used Alcohol Use Standard Drinks/Week Comments No 0 (1 standard drink = 0.6 oz pure alcoho l) Sex Assigned at Date Recorded Not on file documented as of this encounter Miscellaneous Notes Telephone Encounter - Carlene Meraz RN - 12/26/2011 2:21 PM EST Pt still has her lab slip which Salma AGRAWAL gave her in Nov to have a vitamin D level drawn. She is wondering if she should have it done now. Back in September she had a level drawn but it was still low and that was after taking 50,000IU/week for a few months. She's been reduced to taking 1,000IU/day now since September. At the time of the draw she reports a level of 22.5 with low end of range being25, she was still low. SHould she have it rechecked again? Yes, go ahead and have that level checked with the lab slip provided at her last visit. She will letus know when she has it done ([facility]) so that we can look for the results. This nurse will call PCP office to get copy of that last level. documented in this encounter Plan of Treatment Upcoming Encounters Date Type Specialty Care Team Description 02/26/2023 Office Visit Rheumatology Toño Rodriguez PA [facility] [address] [place], [place] [address] (Wo rk) documented as of this encounter Visit Diagnoses Not on filedocumented in this encounter Care Teams Md Senior Research Scientist Relationship Specialty Start Date End Date Jennifer Silva APRN PCP - General 09/10/10 07/01/17 documented as of this encounter
--- OUTSIDE RECORDS SUMMARY | 2022-07-08 09:37 | XMS_ITS | Encounter Summary ---
:1945 Author Organization [facility] [place] [place] [address] Care Team Providers Name Role Phone Jennifer Silva APRN Primary Care Provider Encounter Details Date Type Department Care Team Description 03/04/2011 Orders Only [place] [facility] Alisha Heredia APRN [facility] [place] [address] RHEUMATOLOGY DEPT. [phone] [place], [place] [address] (Wo rk) Social History Tobacco Use Types Packs/Day Years Used Date Former Smoker Alcohol Use Standard Drinks/Week Comments No 0 (1 standard drink = 0.6 oz pure alcoho l) Sex Assigned at Date Recorded Not on file documented as of this encounter Plan of Treatment Upcoming Encounters Date Type Specialty Care Team Description 02/26/2023 Office Visit Rheumatology Toño Rodriguez PA [facility] [address] TAMMY [place] [address] (Wo rk) documented as of this encounter Procedures Procedure Name Priority Date/Time Associated Diagnosis Comme nts FILM LIBRARY Routine 03/04/2011 9:49 PM Results f or this STORAGE ONLY DX EDT procedure ar e in CHEST the results section. documented in this encounter Results FILM LIBRARY- STORAGE ONLY DX CHEST (03/04/2011 9:49 PM EDT) Specimen (Source) Anatomical Collection Method Collection Time Re ceived Time Location / / Volume Laterality 03/04/2011 9:49 PM EDT Narrative RAD - 02/22/2014 7:03 PM EDT This is a non-reportable exam. Procedure Note Fabrizio Mauro - 02/22/2014Formatting of t his note might be different from the original. This is a non-reportable exam. Alisha Heredia APRN IMKelsey FILM LIBRARY ORDERABLES Performing Organization Address City/State/ZIP Code Phon e Number [facility] [address] [facility] [place] [facility] [place] [address] documented in this encounter Visit Diagnoses Not on filedocumented in this encounter Care Teams Production Utility Worker Relationship Specialty Start Date End Date Jennifer Silva APRN PCP - General 09/10/10 07/01/17 documented as of this encounter
--- OUTSIDE RECORDS SUMMARY | 2022-07-08 09:37 | XMS_ITS | Encounter Summary ---
:1945 Author Organization [facility] [place] [address] Care Team Providers Name Role Phone BartowJennifer mckeon Kelsey GILL Primary Care Provider Encounter Details Date Type Department Care Team Description 02/14/2004 Orders Only Rheumatology at [facility] Alisha Heredia APRN [facility] [place] [address] RHEUMATOLOGY DEPT. [phone] [place], [place] [address] (Wo rk) Social History Tobacco Use Types Packs/Day Years Used Date Never Assessed Sex Assigned at Date Recorded Not on file documented as of this encounter Plan of Treatment Upcoming Encounters Date Type Specialty Care Team Description 02/26/2023 Office Visit Rheumatology Toño Rodriguez PA [facility] ER DR TAMMY [place] [address] (Wo rk) documented as of this encounter Procedures Procedure Name Priority Date/Time Associated Diagnosis Comme nts FILM LIBRARY Routine 02/14/2004 9:54 PM Results f or this STORAGE ONLY DX EDT procedure ar e in CHEST the results section. documented in this encounter Results FILM LIBRARY- STORAGE ONLY DX CHEST (02/14/2004 9:54 PM EDT) Specimen (Source) Anatomical Collection Method Collection Time Re ceived Time Location / / Volume Laterality 02/14/2004 9:54 PM EDT Narrative [facility] - 02/22/2014 7:03 PM EDT This is a non-reportable exam. Procedure Note NjFabrizio - 02/22/2014Formatting of t his note might be different from the original. This is a non-reportable exam. Alisha Heredia APRN IMG FILM LIBRARY ORDERABLES Performing Organization Address City/State/ZIP Code Phon e Number [facility] [address] [facility] [place] [address] documented in this encounter Visit Diagnoses Not on filedocumented in this encounter Care Teams Entry Examiner Relationship Specialty Start Date End Date Jennifer Silva APRN PCP - General 09/10/10 07/01/17 documented as of this encounter
--- OUTSIDE RECORDS SUMMARY | 2022-07-08 09:37 | XMS_ITS | Encounter Summary ---
:1945 Author Organization [facility] [place] [address] Care Team Providers Name Role Phone LuzerneJennifer mckeon Kelsey GILL Primary Care Provider Encounter Details Date Type Department Care Team Description 10/04/2010 Orders Only Lab [facility] Alisha Linares, [facility] Jade mijares [place] [address] [place] [address] [phone] (Wo rk) Social History Tobacco Use Types Packs/Day Years Used Date Never Assessed Sex Assigned at Date Recorded Not on file documented as of this encounter Plan of Treatment Upcoming Encounters Date Type Specialty Care Team Description 02/26/2023 Office Visit Rheumatology Toño Rodriguez, PA [facility] RHEUMATOLOGY [place], [place] [address] (Wo rk) documented as of this encounter Procedures Procedure Name Priority Date/Time Associated Comments Diagnosis DIFFERENTIAL, Routine 10/04/2010 10:03 AM Results for this AUTOMATED EST procedure are i n the results section. CREATININE Routine 10/04/2010 10:03 AM Results for this EST procedure are i n the results section. CBC (WITH DIFF) Routine 10/04/2010 10:03 AM Resul ts for this EST procedure are i n the results section. CRP, CARDIAC RISK Routine 10/04/2010 10:03 AM Res ults for this (HS CRP) EST procedure are i n the results section. BUN Routine 10/04/2010 10:03 AM Results for this EST procedure are i n the results section. HEPATIC FUNCTION Routine 10/04/2010 10:03 AM Resu lts for this PANEL EST procedure are i n the results section. documented in this encounter Results (ABNORMAL) HEPATIC FUNCTION PANEL (10/04/2010 10:03 AM EST) P athologist Signature Total Protein 6.9 6.4 - 8.3 CERNER gm/dL MILLENNIUM Albumin 4.4 3.2 - 5.2 CERNER gm/dL MILLENNIUM AST 21 0 - 30 CERNER unit/L [facility]ENNI[facility] ALT 29 0 - 30 CERNER unit/L [facility]ILLENNIUM Alk Phos 111 (H) 40 - 104 CERNER unit/L MILLENNIUM Total 0.3 0.2 - 1.3 CERNER Bilirubin mg/dL MILLENNIUM Bili, Direct 0.1 0.0 - 0.3 CERNER mg/dL [facility]ILLENNIUM Specimen Anatomical Collection Method Collection Time Receive d Time (Source) Location / / Volume Laterality Blood specimen 10/04/2010 10:03 0 (specimen) AM EST 10:17 AM EST Alisha Shad Heredia APRN CHEMISTRY ORDERABLES Performing Organization Address City/State/ZIP [place] [address] CERNER MILLENNIUM CREATININE, SERUM (10/04/2010 10:03 AM EST) P athologist Signature Creatinine 0.78 0.70 - CERNER 1.20 mg/dL MILLENNIUM Estimated GFR >60 >=60 CERNER MILLENNIUM Comment: The National Kidney Disease Education Pr ogram (NKDEP) has recommended all laboratories report estimated GFR (eGFR) along with plasma creatinine measurements to assist you with recognit ion of early kidney disease. Caveats: ??Plasma creatinine should be a t steady-state (unchanged within the past week). ??Patient age > = 18 years, and for Americans multiply eGFR by 1.2. At present, NKDEP does NOT recommend usi [...] kidney disease. References: http://nkdep.nih.gov/resources/NKDEP_Sug gestn4Labs_0606_508.pdf http://www.kidney.org/professionals/kls/ pdf/faq_gfr.pdf Specimen Anatomical Collection Method Collection Time Receive d Time (Source) Location / / Volume Laterality Blood specimen 10/04/2010 10:03 0 (specimen) AM EST 10:17 AM EST Alisha Heredia APRN CHEMISTRY ORDERABLES Performing Organization Address City/State/ZIP Code Phon e Number [address] [employer] HIGH SENSITIVITY CRP (10/04/2010 10:03 AM EST) P athologist Signature CRP High Sens 1.6 mg/L CERNER [employer] Comment: Interpretations: 1) For cardiac risk assessment, [...] for appraisal of co ronary risk information. References: 1. Jen TAYLOR et. al. ??AHA/CDC Scientif ic Statement: Markers of Inflammation and Cardiovascular Disease. ??Circulatio n 2003; 107:499-511 2. Melissa PM. ??Clinical applications of C-reactive protein for cardiovascular disease detection and prevention. ??Circ ulation 2003; 107:363-369 Specimen Anatomical Collection Method Collection Time Receive d Time (Source) Location / / Volume Laterality Blood specimen 10/04/2010 10:03 0 (specimen) AM EST 10:17 AM EST Alisha L Yan TAR MAN CHEMISTRY ORDERABLES Performing Organization Address City/[facility]/ZIP Code Phon e Number [address] CERNER MILLENNIUM (ABNORMAL) BUN (10/04/2010 10:03 AM EST) P athologist Signature BUN 21 (H) 8 - 18 CERNER mg/dL MILLENNIUM Specimen Anatomical Collection Method Collection Time Receive d Time (Source) Location / / Volume Laterality Blood specimen 10/04/2010 10:03 0 (specimen) AM EST 10:17 AM EST Alisha Kulkarni Yan TAR MAN CHEMISTRY ORDERABLES Performing Organization Address City/[facility]/ZIP Code Phon e Number [address] CERNER MILLENNIUM REFLEX LAB-A-DIFF (10/04/2010 10:03 AM EST) P athologist Signature Neutrophils % 67.9 34.0 - CERNER 71.0 % MILLENNIUM Neutr Abs (ANC) 4.40 1.50 - CERNER 6.30 MILLENNIUM x10(3)/mcL Lymphocytes % 24.8 19.0 - CERNER 53.0 % MILLENNIUM Lymphocytes Abs 1.6 1.0 - 3.6 CERNER x10(3)/mcL MILLENNIUM Monocytes % 5.1 4.0 - 13.0 CERNER % MILLENNIUM Monocyte Abs 0.3 0.2 - 1.0 CERNER x10(3)/mcL MILLENNIUM Eosinophils % 1.7 0.0 - 7.0 CERNER % MILLENNIUM Eosinophils Abs 0.1 0.0 - 0.5 CERNER x10(3)/mcL MILLENNIUM Basophils % 0.3 0.0 - 2.0 CERNER % MILLENNIUM Basophils Abs 0.0 0.0 - 0.2 CERNER x10(3)/mcL MILLENNIUM Immature Gran % 0.20 0.00 - CERNER 0.66 % MILLENNIUM Comment: Immature granulocytes(IG's)percentage an d absolute count will include metamyelocytes, myelocytes, and promyelo cytes. Blood smears from CBC's yielding IG's will be scanned manually for concor dance. If this scan disagrees with the automated IG or if promyelocytes are not ed, a manual differential will be performed. Amber Gran Abs 0.01 0.00 - 0.05 x10(3)/mcL CER NER MILLENNIUM Specimen Anatomical Collection Method Collection Time Receive d Time (Source) Location / / Volume Laterality Blood specimen 10/04/2010 10:03 0 (specimen) AM EST 10:17 AM EST Alisha Heredia APRN HEMATOLOGY ORDERABLES Performing Organization Address City/State/ZIP [place] [address] CERNER MILLENNIUM (ABNORMAL) CBC (10/04/2010 10:03 AM EST) P athologist Signature WBC 6.5 4.0 - 10.0 CERNER x10(3)/mcL MILLENNIUM RBC 4.19 3.93 - CERNER 5.22 MILLENNIUM x10(6)/mcL Hemoglobin 13.3 11.2 - CERNER 15.7 gm/dL MILLENNIUM Hematocrit 39.7 34.0 - CERNER 45.0 % MILLENNIUM MCV 94.7 (H) 79.0 - CERNER 94.0 fL MILLENNIUM MCH 31.7 26.6 - CERNER 32.2 pg MILLENNIUM MCHC 33.5 32.0 - CERNER 36.5 gm/dL MILLENNIUM Platelets 240 145 - 370 CERNER x10(3)/mcL MILLENNIUM RDWSD 46.7 (H) 35.0 - CERNER 46.0 fL MILLENNIUM RDWCV 13.7 10.9 - CERNER 14.4 % MILLENNIUM MPV 11.4 9.0 - 12.0 CERNER fL MILLENNIUM Specimen Anatomical Collection Method Collection Time Receive d Time (Source) Location / / Volume Laterality Blood specimen 10/04/2010 10:03 0 (specimen) AM EST 10:17 AM EST Alisha Heredia APRN HEMATOLOGY ORDERABLES Performing Organization Address City/State/[place] [address] [facility] documented in this encounter Visit Diagnoses Not on filedocumented in this encounter Care Teams Senior Software Architect Relationship Specialty Start Date End Date Jennifer Silva APRN PCP - General 09/10/10 07/01/17 documented as of this encounter
--- OUTSIDE RECORDS SUMMARY | 2022-07-08 09:37 | XMS_ITS | Encounter Summary ---
:1945 [place] [address] Care Team Providers Name Role Phone Jennifer Silva APRN Primary Care Provider Reason for Visit Reason Onset Date Comments Medication Refill 02/04/2011 Encounter Details Date Type Department Care Team Description 02/04/2011 Refill [place] [facility] [place]isha Heredia APRN Psoriatic arthritis [facility] [address] RHEUMATOLOGY DEPT. [phone] [place], [place] [address] (Wo rk) Social History Tobacco Use Types Packs/Day Years Used Date Former Smoker Alcohol Use Standard Drinks/Week Comments No 0 (1 standard drink = 0.6 oz pure alcoho l) Sex Assigned at Date Recorded Not on file documented as of this encounter Plan of Treatment Upcoming Encounters Date Type Specialty Care Team Description 02/26/2023 Office Visit Rheumatology Toño Rodriguez PA [facility] [address] [place], [place] [address] (Wo rk) documented as of this encounter Visit Diagnoses Diagnosis Psoriatic arthritis Psoriatic arthropathy documented in this encounter Care Teams J2Ee Java Developer Relationship Specialty Start Date End Date Jennifer Silva APRN PCP - General 09/10/10 07/01/17 documented as of this encounter
--- OUTSIDE RECORDS SUMMARY | 2022-07-08 09:37 | XMS_ITS | Encounter Summary ---
:1945 Author Organization [place] [address] Care Team Providers Name Role Phone Jennifer Silva APRN Primary Care Provider Encounter Details Date Type Department Care Team Description 10/04/2010 Follow-Up Ophthalmology at [facility] Ella Dominguez MD [facility] [place] [address] OPHTHALMOLOGY DEPT. [phone] [place], [place] [address] (Wo rk) Social History Tobacco Use Types Packs/Day Years Used Date Never Assessed Sex Assigned at Date Recorded Not on file documented as of this encounter Plan of Treatment Upcoming Encounters Date Type Specialty Care Team Description 02/26/2023 Office Visit Rheumatology Toño Rodriguez PA [facility] ER [address] [place] [address] (Wo rk) documented as of this encounter Visit Diagnoses Not on filedocumented in this encounter Care Teams Paper Sorter And Counter Relationship Specialty Start Date End Date Jennifer Silva APRN PCP - General 09/10/10 07/01/17 documented as of this encounter
--- OUTSIDE RECORDS SUMMARY | 2022-07-08 09:37 | XMS_ITS | Encounter Summary ---
:1945 Author Organization [facility] [place] [address] Care Team Providers Name Role Phone Jennifer Silva JAIRO Primary Care Provider Encounter Details Date Type Department Care Team Description 01/14/2011 Follow-Up Cardiology at [facility] Jeremy [place]ane [place] [facility] [place] [address] CARDIOLOGY DEPT. [phone] [place], [place] [address] (Wo rk) Social History Tobacco Use Types Packs/Day Years Used Date Never Assessed Sex Assigned at Date Recorded Not on file documented as of this encounter Procedure Notes Provider, Scanning - 01/28/2011 2:39 PM EDTAssociated Order(s): LAB SCAN documented in this encounter Plan of Treatment Upcoming Encounters Date Type Specialty Care Team Description 02/26/2023 Office Visit Rheumatology Toño Rodriguez PA [facility] ER [address] [place] [address] (Wo rk) documented as of this encounter Procedures Procedure Name Priority Date/Time Associated Diagnosis Comme nts LAB SCAN 01/28/2011 2:39 PM Results f or this EDT procedure are i n the results section . EKG 12-LEAD Routine 01/14/2011 2:31 PM Results f or this EDT procedure are i n the results section . documented in this encounter Results LAB SCAN (01/28/2011 2:39 PM EDT) Narrative 01/28/2011 2:39 PM EDT Procedure Note Provider, Scanning - 01/28/2011 2:39 PM EDT Scanning Provider MEDIA MGR SCAN EXT ORDR/RSLT EKG 12-LEAD (01/14/2011 2:31 PM EDT) [facility] Method Time Signature Ventricular rate 93 BPM MUSE SYSTEM Atrial Rate 93 BPM MUSE SYSTEM P-R Interval 160 ms MUSE SYSTEM QRS Duration 112 ms MUSE SYSTEM Q-T Interval 368 ms MUSE SYSTEM QTC Calculated 457 ms MUSE SYSTEM (Bezet) Calculated P Novi 16 degrees MUSE SYSTEM Calculated R Novi 21 degrees MUSE SYSTEM Calculated T Novi 1 degrees MUSE SYSTEM INTERPRETATION Normal sinus rhythm MUSE SYSTEM Incomplete right bundle branch block Borderline ECG When compared with ECG of 05-SEP-2008 08:40, Incomplete right bundle branch block is now Present Confirmed by MD YO, JAMES ([id number]) on 01/14/2011 6:07:01 PM Specimen Anatomical Collection Method Collection Time Receive d Time (Source) Location / / Volume Laterality 01/14/2011 2:31 PM 1 6:07 EDT PM EDT Unknown ECG ORDERABLES Performing Organization Address City/State/ZIP Code Phon e Number MUSE SYSTEM documented in this encounter Visit Diagnoses Not on filedocumented in this encounter Care Teams Optical Advisor Relationship Specialty Start Date End Date Jennifer Silva APRN PCP - General 09/10/10 07/01/17 documented as of this encounter
--- OUTSIDE RECORDS SUMMARY | 2022-07-08 09:37 | XMS_ITS | Encounter Summary ---
:1945 Author Organization [facility] [address] Care Team Providers Name Role Phone Savannah Ledesma APRN Primary Care Provider Reason for Visit Reason Comments Arthritis Encounter Details Date Type Department Care Team Description 03/26/2011 Follow-Up Rheumatology at [facility] Alisha Heredia, Encounter for long-term (cur rent) use of other medications (Primary Dx); [facility] Jade mijares APRN Osteoporosis; [place] [address] [facility] Bilateral shoulder pain; [phone] Psoriatic arthritis RHEUMATOLOGY DEP [place], [place] [address] Social History Tobacco Use Types Packs/Day Years Used Date Former Smoker Smokeless Tobacco: Never Used Alcohol Use Standard Drinks/Week Comments Not Asked 0 (1 standard drink = 0.6 oz pure alcoho l) Sex Assigned at Date Recorded Not on file documented as of this encounter Last Filed Vital Signs Vital Sign Reading Time Taken Comments Blood Pressure 139/79 03/26/2011 10:19 AM EDT Pulse 64 03/26/2011 10:19 AM EDT Temperature 36.7 ??C (98 ??F) 03/26/2011 10:19 AM EDT Respiratory Rate - - Oxygen Saturation 96% 03/26/2011 10:19 AM EDT Inhaled Oxygen Concentration - - Weight - - Height - - Body Mass Index - - documented in this encounter Progress Notes Alisha Heredia APRN - 03/27/2011 4:14 PM EDT Francisca Kong is a 66 y.o. female seen for ongoing evaluation and management of psoriatic arthritis. She is unaccompanied. INTERVAL HISTORY: When last seen reported completion of physical therapy with modest benefit associated with right shoulder discomfort; uncertain if any improvement in low back pain. Reported pain and stiffness without swelling in right thumb, elbows (R>L). Reports bilateral shoulder pain and stiffness, similar symptoms in the past. Remains active -> [employer], [employer] activity program - [place]. Had been using Lidoderm, heat with improvement. Has used valium at bedtime with benefit. Denies recurrent [...] abdominal pain; (-) change in appetite; (-) GERD with meds; (-) diarrhea : not assessed MS: (-) [...] no murmur or extra sounds; no CCE Abdomen: Soft, nontender, nondistended. (-) hepatosplenomegaly Neuro: Gait even and co-ordinated; speech clearly articulated Musculoskeletal: Muscle mass bilaterally symmetric. Joint exam: ?? Shoulders: Limited ROM in all planes (bilateral), tender to palpation ?? Elbows: Functional ROM, nontender; (-) extensor surface nodules or effusion ?? Wrists: Functional ROM; (-) effusion; (-) tenderness ?? MCPs: Functional ROM; (-) nontender; (-) synovitis ?? PIPs: Functional ROM; (-) nontender; (-) synovitis ?? DIPs: Functional ROM; (-) nontender; (-) synovitis ?? (No) deformities; makes an incomplete fist and claw ?? Hips: Functional ROM, (-) tenderness; independent seated -> standing/standing to seated ?? Knees: Functional ROM, (-)effusions, (-) no tenderness ?? Ankles/feet: Functional ROM, (-)MTP compression tenderness Skin: Warm, dry; (-) telangiectasias; (-) ulcers; (-) rash; (-) nail pitting;(-) bruising Labs: Prior labs reviewed. ASSESSMENT : Bilateral shoulder pain; inflammatory arthritis, drug safety monitoring PLAN/RECOMMENDATIONS: 1. DXA to be scheduled. 2. Ongoing HEP per PT referral. Immediately prior to the start of the procedure, I confirmed the patient's identity, intended procedure, including site/side, the correct patient positioning, site marked, and the availability of special equipment. Procedure Note: Site LEFT shoulder - subacromial approach After informed verbal consent obtained, the area was prepped with an iodine solution. Ethyl chloridewas applied as a topical anesthetic. 0.75% marcaine (3 cc) and Depomedrol 40 mg were injected into site without complication. Procedure Note: Site RIGHT shoulder - subacromial approach After informed verbal consent obtained, the area was prepped with an iodine solution. Ethyl chloridewas applied as a topical anesthetic. 0.75% marcaine (3 cc) and Depomedrol 40 mg were injected into site without complication. The patient was advised of potential adverse reactions including infection, hyperglycemia, and skin atrophy. The patient was advised to call the clinic immediately for fever, chills, sweats, or increased redness, warmth, pain or swelling over the injection site. SAVANNAH LEDESMA APRN Subjective: Patient ID: Francisca Kong is a 66 y.o. female. HPI Review of Systems Objective: Physical Exam Assessment and Plan: No problem-specific visit notes found for this encounter. documented in this encounter Plan of Treatment Upcoming Encounters Date Type Specialty Care Team Description 02/26/2023 Office Visit Rheumatology Toño Rodriguez PA [facility] RHEUMATOLOGY [place], [place] [address] (Wo rk) documented as of this encounter Procedures Procedure Name Priority Date/Time Associated Diagnosis Comme nts DIFFERENTIAL, Routine 03/26/2011 11:26 Results fo r this AUTOMATED AM EDT procedure are i n the results section. CREATININE Routine 03/26/2011 11:26 Encounter for Results fo r this AM EDT long-term (current) procedur e are in use of other the results medications section. CBC (WITH DIFF) Routine 03/26/2011 11:26 Encounter for Results for this AM EDT long-term (current) procedur e are in use of other the results medications section. BUN Routine 03/26/2011 11:26 Encounter for Results fo r this AM EDT long-term (current) procedur e are in use of other the results medications section. HEPATIC FUNCTION Routine 03/26/2011 11:26 Encounter for Result s for this PANEL AM EDT long-term (current) procedur e are in use of other the results medications section. documented in this encounter Results REFLEX LAB-A-DIFF (03/26/2011 11:26 AM EDT) P athologist Signature Neutrophils % 59.1 34.0 - CERNER 71.0 % MILLENNIUM Neutr Abs (ANC) 4.05 1.50 - CERNER 6.30 MILLENNIUM x10(3)/mcL Lymphocytes % 31.2 19.0 - CERNER 53.0 % MILLENNIUM Lymphocytes Abs 2.1 1.0 - 3.6 CERNER x10(3)/mcL MILLENNIUM Monocytes % 7.6 4.0 - 13.0 CERNER % MILLENNIUM Monocyte Abs 0.5 0.2 - 1.0 CERNER x10(3)/mcL MILLENNIUM Eosinophils % 1.5 0.0 - 7.0 CERNER % MILLENNIUM Eosinophils Abs 0.1 0.0 - 0.5 CERNER x10(3)/mcL MILLENNIUM Basophils % 0.3 0.0 - 2.0 CERNER % MILLENNIUM Basophils Abs 0.0 0.0 - 0.2 CERNER x10(3)/mcL MILLENNIUM Immature Gran % 0.30 0.00 - CERNER [...] Location / / Volume Laterality Blood specimen 03/26/2011 11:26 1 (specimen) AM EDT 11:29 AM EDT Rosalino George MD HEMATOLOGY ORDERABLES Performing Organization Address City/State/ZIP Code [facility] [place] [address] CERNER MILLENNIUM (ABNORMAL) Creatinine, serum (03/26/2011 11:26 AM EDT) Analysis Performed At Patho logist Time Signature Creatinine 0.69 (L) 0.70 - CERNER 1.20 mg/dL MILLENNIUM Estimated GFR >60 >=60 CERNER MILLENNIUM Comment: The National Kidney Disease Education Pr ogram (NKDEP) has recommended all laboratories report estimated GFR (eGFR) along with plasma creatinine measurements to assist you with recognit ion of early kidney disease. Caveats: ??Plasma creatinine should be a t steady-state (unchanged within the past week). For patient s multiply eGFR by 1.2.MDRD equation has not been validated for pediatric pat ients and is only valid for patients with age >= 18 years. At present, NKDEP does NOT recommend usi [...] Location / / Volume Laterality Blood specimen 03/26/2011 11:26 1 (specimen) AM EDT 11:29 AM EDT Rosalino George MD CHEMISTRY ORDERABLES Performing Organization Address City/[facility]/ZIP [place] [address] CERNER MILLENNIUM BUN (03/26/2011 11:26 AM EDT) P athologist Signature BUN 17 8 - 18 CERNER mg/dL MILLENNIUM Specimen Anatomical Collection Method Collection Time Receive d Time (Source) Location / / Volume Laterality Blood specimen 03/26/2011 11:26 1 (specimen) AM EDT 11:29 AM EDT Rosalino George MD CHEMISTRY ORDERABLES Performing Organization Address City/[facility]/ZIP [place] [address] CERNER MILLENNIUM CBC (with Diff) (03/26/2011 11:26 AM EDT) P athologist Signature WBC 6.9 4.0 - 10.0 CERNER x10(3)/mcL MILLENNIUM RBC 4.32 3.93 - 5.22 CERNER x10(6)/mcL MILLENNIUM Hemoglobin 13.2 11.2 - 15.7 CERNER gm/dL MILLENNIUM Hematocrit 39.2 34.0 - 45.0 CERNER % MILLENNIUM MCV 90.7 79.0 - 94.0 CERNER fL MILLENNIUM MCH 30.6 26.6 - 32.2 CERNER pg MILLENNIUM MCHC 33.7 32.0 - 36.5 CERNER gm/dL MILLENNIUM Platelets 217 145 - 370 CERNER x10(3)/mcL MILLENNIUM RDWSD 42.0 35.0 - 46.0 CERNER fL MILLENNIUM RDWCV 12.7 10.9 - 14.4 CERNER % MILLENNIUM MPV 11.4 9.0 - 12.0 CERNER fL MILLENNIUM Specimen Anatomical Collection Method Collection Time Receive d Time (Source) Location / / Volume Laterality Blood specimen 03/26/2011 11:26 1 (specimen) AM EDT 11:29 AM EDT Rosalino George MD HEMATOLOGY ORDERABLES Performing Organization Address City/State/ZIP [place] [address] CERNER MILLENNIUM Hepatic function panel (03/26/2011 11:26 AM EDT) P athologist Signature Total Protein 6.8 6.4 - 8.3 CERNER gm/dL MILLENNIUM Albumin 4.5 3.2 - 5.2 CERNER gm/dL MILLENNIUM AST 20 0 - 30 CERNER unit/L MILLENNIUM ALT 27 0 - 30 CERNER unit/L MILLENNIUM Alk Phos 104 40 - 104 CERNER unit/L MILLENNIUM Total 0.3 0.2 - 1.3 CERNER Bilirubin mg/dL MILLENNIUM Bili, Direct 0.1 0.0 - 0.3 CERNER mg/dL MILLENNIUM Specimen Anatomical Collection Method Collection Time Receive d Time (Source) Location / / Volume Laterality Blood specimen 03/26/2011 11:26 1 (specimen) AM EDT 11:29 AM EDT Rosalino George MD CHEMISTRY ORDERABLES Performing Organization Address City/State/ZIP Code Phon e Number [address] LABORATORY [facility] documented in this encounter Visit Diagnoses Diagnosis Encounter for long-term (current) use of other medications - Primary Osteoporosis Osteoporosis, unspecified Bilateral shoulder pain Pain in joint, shoulder region Psoriatic arthritis Psoriatic arthropathy documented in this encounter Care Teams Celluloid Trimmer Relationship Specialty Start Date End Date Savannah Ledesma APRN PCP - General 09/10/10 07/01/17 documented as of this encounter
--- OUTSIDE RECORDS SUMMARY | 2022-07-08 09:37 | XMS_ITS | Encounter Summary ---
:1945 Author Organization [place] [address] Care Team Providers Name Role Phone [place] Kelsey GILL Primary Care Provider Encounter Details Date Type Department Care Team Description 09/25/2009 Orders Only Rheumatology at [facility] Alisha Heredia APRN [facility] [place] [address] RHEUMATOLOGY DEPT. [phone] [place], [place] [address] (Wo rk) Social History Tobacco Use Types Packs/Day Years Used Date Never Assessed Sex Assigned at Date Recorded Not on file documented as of this encounter Plan of Treatment Upcoming Encounters Date Type Specialty Care Team Description 02/26/2023 Office Visit Rheumatology Toño Rodriguez PA [facility] ER [address] [place] [address] (Wo rk) documented as of this encounter Procedures Procedure Name Priority Date/Time Associated Diagnosis Comme nts FILM LIBRARY Routine 09/25/2009 9:52 PM Results f or this STORAGE ONLY DX EST procedure ar e in CHEST the results section. documented in this encounter Results FILM LIBRARY- STORAGE ONLY DX CHEST (09/25/2009 9:52 PM EST) Specimen (Source) Anatomical Collection Method Collection Time Re ceived Time Location / / Volume Laterality 09/25/2009 9:52 PM EST Narrative RAD - 02/22/2014 7:03 PM EDT This is a non-reportable exam. Procedure Note Fabrizio Mauro - 02/22/2014Formatting of t his note might be different from the original. This is a non-reportable exam. Alisha Heredia APRN IMG FILM LIBRARY ORDERABLES Performing Organization Address City/State/ZIP Code Phon e Number [facility] [address] [place] [address] documented in this encounter Visit Diagnoses Not on filedocumented in this encounter Care Teams Reverser Relationship Specialty Start Date End Date Jennifer Silva APRN PCP - General 09/10/10 07/01/17 documented as of this encounter
--- OUTSIDE RECORDS SUMMARY | 2022-07-08 09:37 | XMS_ITS | Encounter Summary ---
:1945 Author Organization [facility] [place] [address] Care Team Providers Name Role Phone [place] Kelsey GILL Primary Care Provider Encounter Details Date Type Department Care Team Description 11/22/2008 Orders Only Rheumatology at [facility] Alisha Heredia APRN [facility] [place] [address] RHEUMATOLOGY DEPT. [phone] [place], [place] [address] (Wo rk) Social History Tobacco Use Types Packs/Day Years Used Date Never Assessed Sex Assigned at Date Recorded Not on file documented as of this encounter Plan of Treatment Upcoming Encounters Date Type Specialty Care Team Description 02/26/2023 Office Visit Rheumatology Toño Rodriguez PA [facility] ER [address] [place] [address] (Wo rk) documented as of this encounter Procedures Procedure Name Priority Date/Time Associated Diagnosis Comme nts FILM LIBRARY Routine 11/22/2008 9:53 PM Results f or this STORAGE ONLY DX EST procedure ar e in CHEST the results section. documented in this encounter Results FILM LIBRARY- STORAGE ONLY DX CHEST (11/22/2008 9:53 PM EST) Specimen (Source) Anatomical Collection Method Collection Time Re ceived Time Location / / Volume Laterality 11/22/2008 9:53 PM EST Narrative RAD - 02/22/2014 7:03 PM EDT This is a non-reportable exam. Procedure Note Fabrizio Mauro - 02/22/2014Formatting of t his note might be different from the original. This is a non-reportable exam. Alisha Heredia APRN IMG FILM LIBRARY ORDERABLES Performing Organization Address City/State/ZIP Code Phon e Number [facility] [address] [facility] [place] [address] documented in this encounter Visit Diagnoses Not on filedocumented in this encounter Care Teams Clinical Care Manager Relationship Specialty Start Date End Date Jennifer Silva APRN PCP - General 09/10/10 07/01/17 documented as of this encounter
--- OUTSIDE RECORDS SUMMARY | 2022-07-08 09:37 | XMS_ITS | Encounter Summary ---
:1945 Author Organization [facility] [place] [address] Care Team Providers Name Role Phone Jennifer Silva APRN Primary Care Provider Reason for Referral Physical Therapy (Routine) - Closed by system - unspecified Specialty Diagnoses / Procedures Referred By Contact Refer red To Contact Physical Therapy Diagnoses Chronic back pain Degenerative disk disease Degenerative spondylolisthesis Fibromyalgia [facility] [place] [facility] [address] Referral ID Status Reason Start Expiration Visits Visits Date Date Requested Authorized [id number] Closed by Evaluate and 01/30/2011 1 1 system - Treat 1 unspecified Reason for Visit Reason Comments Back And Neck Pain Numbness in back Encounter Details Date Type Department Care Team Description 01/29/2011 Office Visit [facility], Chronic back pain (Primary Dx); Cl LEONARD Degenerative disk disease; [facility] Deg enerative spondylolisthesis; Drive [address] [place], [place] [facility] [address] [place] [address] [phone] Social History Tobacco Use Types Packs/Day Years Used Date Former Smoker Alcohol Use Standard Drinks/Week Comments No 0 (1 standard drink = 0.6 oz pure alcoho l) Sex Assigned at Date Recorded Not on file documented as of this encounter Last Filed Vital Signs Vital Sign Reading Time Taken Comments Blood Pressure 143/88 01/29/2011 10:50 AM EDT Pulse 70 01/29/2011 10:50 AM EDT Temperature - - Respiratory Rate - - Oxygen Saturation - - Inhaled Oxygen Concentration - - Weight 90.7 kg (200 lb) 01/29/2011 10:50 AM EDT Height 157.5 cm (5' 2) 01/29/2011 10:50 AM EDT Body Mass Index 36.58 01/29/2011 10:50 AM EDT documented in this encounter Progress Notes [facility] PA - 01/29/2011 11:47 AM EDT Subjective: Patient ID: Francisca Kong is a 65 y.o. female. Neck Pain Associated symptoms include headaches, leg pain, numbness and tingling. Pertinent negatives include no fever or weight loss. Back Pain This is a chronic problem. The current episode started more than 1 year ago. The problem occurs constantly. The problem is unchanged. The pain is present in the thoracic spine and lumbar spine (neck pain). The quality of the pain is described as aching, burning and stabbing. The pain is at a severity of 7/10. The symptoms are aggravated by lying down and bending. The pain is the same all the time. Associated symptoms include bladder incontinence, headaches, leg pain, numbness and tingling. Pertinentnegatives include no bowel incontinence, fever or weight loss. Risk factors include history of osteoporosis and menopause. She has tried analgesics, NSAIDs, home exercises and muscle relaxant for the sy mptoms. Review of Systems Constitutional: Negative for fever, chills and weight loss. HENT: Positive for neck pain. Gastrointestinal: Positive for constipation. Negative for bowel incontinence. Genitourinary: Positive for bladder incontinence. Stress incontinence Musculoskeletal: Positive for back pain. Neurological: Positive for tingling, numbness and headaches. Objective: Physical Exam Back Exam Sensation: Decreased. Gait: Abnormal. Tenderness The patient is experiencing tenderness in the there was tenderness through the whole spine, with tenderness at both clavicle, both shoulders, both knees, and both elbows, matching 18/18 tenderpoints for fibromyalgia. Range of Motion Flexion: 90 Extension: 10 Lateral Bend Left: Lateral Bend Right: Rotation Right: Rotation Left: SLR Right: Negative Left: Negative Muscle Strength Normal Tests Toe Walk: Normal Heel Walk: Normal Reflexes Patellar: 2/4 Achilles: 2/4 Biceps: 2/4 Triceps: 2/4 Babinski: Normal Comments: Alignment: there is a mild scoliosis convex to the left. Gait: there is a slight shufflinggait. ROM: There was increased LBP with extension, and there was full cervical ROM with pain on all cervical motions. Sensation: there is a sense of decreased sensation in all dermatones of both upper and lower extremity, but is more significant on the right, especially in digits 1-3 on the hand and the right upper anterior thigh. There was a negative Sifuentes's, and no clonus. Spurling's test was negative with only axial neck pain. There was a positive tinel's and positive Phalen's tested on both wrists. There was a negative FLAQUITA's test. Distal pulses are intact. Neurologic Exam Assessment and Plan: No problem-specific visit notes found for this encounter. Imaging: There are no current images for this patient but there are plain films that are about 6 months old loaded onto [employer], and also reports and MRIs of both the lumbar and cervical spine from a number of years ago. All the imaging reports indicate that there is severe degenerative changes of the cervical, thoracic and lumbar spine. There was clear facet hypertrophic changes in the lower thoracic and upper lumbar spine. There appeared to be complete disk space collapse at L5-S1, and there was a degenerative spondylolisthesis of L4 on L5. The MRI report seems to indicate that there was some mild central canal stenosis at this level. There is also cervical spondylotic changes at multiple levels. I reviewed the findings with the patient. Assessment: Chronic diffuse spine and body pain symptoms that is complicated by multiple different conditions including: Fibromyalgia, degenerative spine changes, psoriatic arthritis, Rheumatoid arthritis and osteoporosis. In Summary: This patient is a 65-year-old female who returns to the spine center for diffuse chronicpain symptoms through much of the body but significantly in the spinal region from the cervical spine to the sacrum. She has a known history of fibromyalgia, rheumatoid arthritis, psoriatic arthritis, osteoporosis and degenerative spine changes. She was referred here today by her automatic spinning lathe setter to give other options for this patient to try to help her manage some of her pain symptoms. She does have pain throughout her entire spine from her occiput to the sacrum and she also does have bilateral leg pain that travels down the anterolateral thigh and can go to the level of the ankle. Episodically she can also get bilateral arm pain that she is not able to identify a specific pattern. All of her pain symptoms started in approximately 2002, stating she was working with the patient, and the patient pulled down on her head causing her to be in a flexed and rotated position. She reports that she is functioning at a high level and managing fairly well with her pain but does still have difficulty associated with her pain. She rates her pain between a 4-8/10 and feels worse when she is laying down, but can also have pain with bending or increased house chores activities and she feels better with medication and sitting in a recliner. She is a retried treatments to include physical therapy, medications, meditation, and she is are ready participated [facility]. Her physical exam findings reveals that she does have a relatively poor posture with a mild scoliotic curve convex to the left. She has a shuffling gait and she had tenderness throughout her entire spine with 18/18 tender points for fibromyalgia. She had some low back pain on lumbar extension and had neck pain in all cervical range of motion is her she had full cervical range of motion. Neurologically she had some vague decreased sensation in both upper and lower extremities that is more profound on the right side but otherwise she was intact with negative nerve tension signs. Her Spurling's test was negative reproducing only axial neck pain that might radiate to her shoulder. She did have a positive Tinel's test and a positive Phalen's test at both wrists. Imaging of her spine does indicate severe degenerative changes throughout her spine. This leads me to feel that she is dealing with chronic diffuse pain symptoms throughout her body related to multiple different conditions including fibromyalgia, degenerative changes to her spine, psoriatic arthritis, rheumatoid arthritis and osteoporosis. Plan: I have discussed with the patient that she does have a complex pain picture and she has multiple possible conditions that could be causing her pain symptoms. We have discussed that I do not believe there is anything that will cause her to be pain free, but we may be able to provide her some options to manage some of her pain symptoms. What will be difficult is that she does also have reactions to multiple different medications and may not tolerate any of the treatment options that I can offer her very well. We have discussed that these symptoms are hurtful and not harmful. Treatment options that were discussed include: Functional mandaeism program, Neurontin, ordering a lumbar MRI to rule out spinal stenosis and consider treatments for spinal stenosis, pool therapy. The patient notes thatleonides can only have MRIs in a standing position, which appear I can only occur in [place], and she notes that she is unable to lay down for an MRI as this increases pain symptoms. She did express an interest in pool therapy, and was also interested in the option of Neurontin. She stated she would prefer to talk her primary care physician about the Neurontin as she has adverse reactions to multiple medications. She does note that she had issues with Lyrica and Cymbalta in the past. We've also discussed the possibility of cognitive behavioral therapy. At this point I have written her a prescription for pool therapy and given her my card to call the spine center if she wishes to follow up with me at [facility]. I've also given her a schedule for dosing up Neurontin and discussed that she can eithercall the spine center and asked the nursing staff to have me fill this prescription or she can turn to her primary care physician to manage this medication. documented in this encounter Plan of Treatment Upcoming Encounters Date Type Specialty Care Team Description 02/26/2023 Office Visit Rheumatology Toño Rodriguez PA [facility] [address], [place] [address] (Wo rk) Scheduled Referrals Name Type Priority Associated Diagnoses Order S chedule REFERRAL TO Outpatient Referral Routine Chronic back pain Ordered: PHYSICAL THERAPY Degenerative Disk 2010 Disease Degenerative spondylolisthesi s Fibromyalgia documented as of this encounter Visit Diagnoses Diagnosis Chronic back pain - Primary Backache, unspecified Degenerative disk disease Degeneration of intervertebral disc, sit e unspecified Degenerative spondylolisthesis Acquired spondylolisthesis Fibromyalgia Mylagia and myositis, unspecified documented in this encounter Care Teams Sweeper Driver Relationship Specialty Start Date End Date Jennifer Silva APRN PCP - General 09/10/10 07/01/17 documented as of this encounter
--- OUTSIDE RECORDS SUMMARY | 2022-07-08 09:37 | XMS_ITS | Encounter Summary ---
:1945 Author Organization [facility] [address] Care Team Providers Name Role Phone Jennifer Silva JAIRO Primary Care Provider Reason for Visit Reason Comments Oral Pain tongue pain Encounter Details Date Type Department Care Team Description 01/29/2011 Office Visit Otolaryngology at [facility] Juventino Solis, Throat pain (Primary [facility] Jade LEONARD Dx) [place] [address] [facility] [phone] CENTER OTOLARYNGOLOGY DEPT. [place], [place] [address] Social History Tobacco Use Types Packs/Day Years Used Date Former Smoker Alcohol Use Standard Drinks/Week Comments No 0 (1 standard drink = 0.6 oz pure alcoho l) Sex Assigned at Date Recorded Not on file documented as of this encounter Last Filed Vital Signs Vital Sign Reading Time Taken Comments Blood Pressure - - Pulse - - Temperature - - Respiratory Rate - - Oxygen Saturation - - Inhaled Oxygen Concentration - - Weight 90.7 kg (200 lb) 01/29/2011 1:27 PM EDT Height 157.5 cm (5' 2) 01/29/2011 1:27 PM EDT Body Mass Index 36.58 01/29/2011 1:27 PM EDT documented in this encounter Progress Notes Juventino Solis PA - 01/29/2011 2:10 PM EDT Francisca Kong is 65 years of age. She presents today for evaluation of persistent tongue and throat pain, more so on the right side, and with this she experiences some referred otalgia. This began in August with cough, sore throat. She feels has improved, but has not completely resolved. She was actually seen by Dr. Patricia for some swollen glands in her right neck and fine needle aspirate results are reportedly normal. There is a question whether or not this is all related to reflux, but what she does have and takes Nexium twice a day until things settle down and then goes on once a day. She was then referred to Dr. Grewal in [place], [place], an ears, nose, and throat physician there who was concerned that there may be an abnormality the right side of her tongue. Mentioned to her that it may represent cancer and also told her she had polyps in the throat. A RAST test was performed, but unfortunately another patients results were given and Ms. Knog decided that she would like a second opinion so returns here. I have actually seen her for similar symptoms in the past and I would refer you to my past clinic note for that visit. She reports now she continues to experience right throat discomfort with continued discomfort intermittently to the right ear. She has noted some swallowing problems, occasionally will bring up some pink tinged mucus. However, she does admit when she blows her nose she is noting some blood, which is the most likely source. She does take Flonase on an as-needed basis. She also uses rinse and saline sprays and uses humidification in the home. Her past medical history is significant for osteoporosis, arthritis. She has some significant spinal issues, and heart disease. Social History: Tobacco: Approximately two packs per day on and off over a 20-year period, quit in 1980. Does not use alcohol. 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 On physical exam, Ms. Kong is healthy appearing. She is in no acute distress today. Neck: I detect no palpable adenopathy. There is no asymmetry. Oral cavity: The tongue actually appears normal. Some of the papillae are a bit larger than normal, but I do not see anything that looks like serious pathology. I see no ulceration of the tongue or chronic irritation, or leukoplakia. The palate, buccal gutters are normal. Ears: External auditory canals found to be patent. Tympanic membranes are both translucent, no sign of middle ear pathology. Fiberoptic laryngoscopy is completed through the right nostril with video recording. Due to allergy to numbing agents, none were used today. I was able to easily perform laryngoscopy through the right nostril. There is a bit of irritation of the right inferior turbinate with evidence of fresh blood, but no active bleeding. No mass, mucosa lesions. No abnormal discharge. Nasopharynx is found to be clear. Further exam of the oropharynx and hypopharynx nonremarkable. Exam of the larynx, tongue base, and vallecular normal. Epiglottis normal shape, contour without erythema, edema. The vocal cords normal without discrete lesion, irritation, or paralysis. The tips of the arytenoids slightly edematous, which would be consistent with her history of reflux, but no lesion noted. Postcricoid region and piriform sinuses are clear. Base of tongue is thoroughly examined, and I see no evidence of pathology, which would account for referred otalgia. Impression and Plan: The patient has had persistent symptoms of throat discomfort right side with some radiation edema. We did discuss CT scan of the neck, but with her significant allergies to CONTRAST DYE with her needing to go on high doses of prednisone and the symptoms slightly improving with time, we discussed taking a short wait and see approach to see if things continue to improve and will set up a followup in three months for repeat examination. Certainly, if she notes any worsening of her symptoms, she will contact our clinic sooner. Juventino Solis PA-C Department of Otolaryngology [facility] [place] [address] Office Phone - documented in this encounter Plan of Treatment Upcoming Encounters Date Type Specialty Care Team Description 02/26/2023 Office Visit Rheumatology Toño Rodriguez PA [facility] [address] [place], [place] [address] (Wo rk) documented as of this encounter Visit Diagnoses Diagnosis Throat pain - Primary documented in this encounter Care Teams Medical Educator Relationship Specialty Start Date End Date Jennifer Silva APRN PCP - General 09/10/10 07/01/17 documented as of this encounter
--- OUTSIDE RECORDS SUMMARY | 2022-07-08 09:37 | XMS_ITS | Encounter Summary ---
:1945 Author Organization [facility] [place] [address] Care Team Providers Name Role Phone Jennifer Silva APRN Primary Care Provider Encounter Details Date Type Department Care Team Description 01/28/2011 Abstract Spine Center at [facility] Boni Vargas [place] [facility] [place] [address] [facility] [phone] [place], [place] [address] (Wo rk) Social History Tobacco Use Types Packs/Day Years Used Date Never Assessed Sex Assigned at Date Recorded Not on file documented as of this encounter Plan of Treatment Upcoming Encounters Date Type Specialty Care Team Description 02/26/2023 Office Visit Rheumatology Toño Rodriguez PA [facility] ER [address] [place], [place] [address] (Wo rk) documented as of this encounter Visit Diagnoses Not on filedocumented in this encounter Care Teams Forensic Locksmith Relationship Specialty Start Date End Date Jennifer Silva APRN PCP - General 09/10/10 07/01/17 (work) documented as of this encounter
--- OUTSIDE RECORDS SUMMARY | 2022-07-08 09:37 | XMS_ITS | Encounter Summary ---
:1945 Author Organization [facility] [place] [address] Care Team Providers Name Role Phone Jennifer Silva APRN Primary Care Provider Encounter Details Date Type Department Care Team Description 02/25/2011 Orders Only Rheumatology at [facility] Alisha Heredia APRN [facility] [place] [address] RHEUMATOLOGY DEPT. [phone] [place], [place] [address] (Wo rk) Social History Tobacco [...] Visit Rheumatology Toño Rodriguez PA [facility] [address] [place], [place] [address] (Wo rk) documented as of this encounter Procedures Procedure Name Priority Date/Time Associated Diagnosis Comme nts FILM LIBRARY Routine 02/25/2011 9:51 PM Results f or this STORAGE ONLY DX EDT procedure ar e in CHEST the results section. documented in this encounter Results FILM LIBRARY- STORAGE ONLY DX CHEST (02/25/2011 9:51 PM EDT) Specimen (Source) Anatomical Collection Method Collection Time Re ceived Time Location / / Volume Laterality 02/25/2011 9:51 PM EDT Narrative RAD - 02/22/2014 7:03 PM EDT This is a non-reportable exam. Procedure Note Fabrizio Mauro - 02/22/2014Formatting of t his note might be different from the original. This is a non-reportable exam. Alisha Heredia APRN [facility] FILM LIBRARY ORDERABLES Performing Organization Address City/State/ZIP Code Phon e Number [facility] [address] [facility] [place] [address] documented in this encounter Visit Diagnoses Not on filedocumented in this encounter Care Teams Director Part Relationship Specialty Start Date End Date Jennifer Silva APRN PCP - General 09/10/10 07/01/17 documented as of this encounter
--- OUTSIDE RECORDS SUMMARY | 2022-07-08 09:44 | XMS_ITS ---
:1945 Author Care Team Providers Name Role Phone DR. MACARENA VAUGHAN Primary Care Provider [phone] DR. MACARENA VAUGHAN Referring Provider [phone] Allergies Code Code System Name Reaction Severity Status Onset 435 RxNorm Albuterol ? ? Active ? [id number] RxNorm Bactrim ? ? Active ? 030696 RxNorm Celexa ? ? Active ? 2231 RxNorm Cephalexin ? ? Active ? 2582 RxNorm Clindamycin ? ? Active ? 3992 RxNorm Epinephrine Anaphylaxis Severe Active ? 59935 RxNorm Gabapentin ? ? Active ? 6451 RxNorm Methotrexate Other Severe Active ? 7984 RxNorm Penicillin v ? ? Active ? 67023 RxNorm Prozac ? ? Active ? Medications Name Status Start Date Stop Date ? ? Arava 20 mg tablet Completed ? 06/25/2021 Take 1 tablet every day by oral route. Asmanex HFA 100 mcg/actuation aerosol inhaler Active ? Not available Inhale 1 puff twice a day by inhalation route. aspirin 325 mg tablet Completed ? 02/25/2021 Take 1 tablet every day by oral route. aspirin 81 mg tablet,delayed release Active ? Not available Take 1 tablet every day by oral route. cholecalciferol (vitamin D3) 50 mcg (2,000 unit) tablet Active ? Not available Take 1 tablet every day by oral route. Crestor 10 mg tablet Active ? Not availab le Take 1 tablet 3 times a week by oral route. Crestor 5 mg tablet Active ? Not availabl e Take once daily 4 times a week. Dexcom G6 Boat Builder Active ? Not available Dexcom G6 Sensor device Active ? Not avai lable Dexcom G6 Transmitter device Active ? Not available Digox 125 mcg (0.125 mg) tablet Active ? Not available Take 0.5 tablets every day by oral route. doxycycline hyclate 100 mg capsule Active ? Not available Take 1 capsule twice a day by oral route for 14 days. Dulcolax (bisacodyl) 10 mg rectal suppository Active [...] 100 unit/mL subcutaneous Active ? Not available via insulin pump (Ominpod ) Pumps deliv er insulin by Basal and Bolus Protocols Basal 0.6 units /hour (14 units to Max 18 u/da in Basal) Bolus: pre mealsCa rbo coverage prior to learn Carbo counti ng.3 unit s pre breakst plus correction dose4 units pre lunch plus correction dose5 units at supper plus corretion dose bedtimeUse correction dose but subtaract 3 unitsMaxium 40 units daily Humalog U-100 Insulin 100 unit/mL subcutaneous solution Active ? Not available via insulin pump (Ominpod ) Pumps deliv er insulin by Basal and Bolus ProtocolsBasal 0.6 units /hour (14 units to Max 18 u/da in Basal)Bolus 1 unit / 10 gram and I unit per 20 mg above target 120 --Bolu s Max 18 units)[Total Daily Insulin Maxi um 40 units daily of both Basal and Bolus] Humira Completed ? 02/25/2021 hydrochlorothiazide 25 mg tablet Completed ? 11/09/2019 Take 1 tablet every day by oral route as needed. Levemir FlexTouch U-100 Insulin 100 unit/mL (3 mL) subcutaneous pen Active ? Not available Inject 16 units at 9 am lidocaine 5 % topical ointment Active ? N ot available APPLY TO AFFECTED AREA(S) BY TOPICAL ROUTE 1-4 TIMES DAILY N EEDED Lidoderm 5 % topical patch Active ? Not a vailable APPLY 1 PATCH BY TRANSDERMAL ROUTE ONCE DAILY (MAY WEAR UP TO 1 2HOURS.) lisinopril 10 mg tablet Completed 05/01/2020 11/27/19 21 Take 0.5 tablets every day by oral route. lisinopril 5 mg tablet Active ? Not avail able Take 1 tablet every day by oral route. magnesium oxide [...] 1 tablet as needed by sublingual route. [place] 3 Active ? Not available Take one tablet 3 times a day. Omnipod Classic Pods (Gen 3) subcutaneous cartridge Active ? Not available Inject by subcutaneous route. OneTouch Delica Lancets Active 11/27/2020 Not avai lable Fine OneTouch Verio Meter Active ? Not availab le OneTouch Verio test strips Active ? Not a vailable oxycodone 5 mg tablet Active ? Not availa ble Take 1 tablet twice a day by oral route as needed. pantoprazole 40 mg tablet,delayed release Active ? Not available Take 1 tablet twice a day by oral route. potassium citrate Active ? Not available Two (50 mg) tab BID. prednisone Active ? Not available 5 mg daily. prednisone 1 mg tablet,delayed release Completed ? 07/05/2019 Take 4 tablets every day by oral route. prednisone 5 mg tablet Completed 07/31/2020 1 Take 1 tablet every day by oral route. Restasis 0.05 % eye drops in a dropperette Active ? Not available INSTILL 1 DROP INTO AFFECTED EYE(S) BY OPHTHALMIC ROUTE BID Valium 2 mg tablet Completed ? 11/09/2019 Take 0.5 tablets 4 times a day by oral route as needed. verapamil 40 mg tablet Active ? Not avail able Take 1 tablet twice a day by oral route. Vitamin D 2,000 unit capsule Completed ? 07/2021 Take 1 capsule every day by oral [...] II Diabetes Mellitus Uncontrolled Active 0 ? Polyneuropathy Due to Diabetes Mellitus Active 01/07/20 22 ? Chronic Kidney Disease Stage 2 Active 01/06/2022 ? Mixed Hyperlipidemia Due to Type 2 Diabetes Mellitus Active 01/06/2022 ? Herpes Zoster Active ? ? Type [...] Interpretation Description Value Range Status Address ? 04/01/2022 Glucose, Blood ? Blood 184 ? ? [facility] - Fingerstick, capillary Glucose: mg/dl Specialty: [address] [facility] 02/17/2022 Glucose, Blood ? Blood 242 ? ? Rhc - Fingerstick, capillary Glucose: mg/dl Specialty: [address] [facility] 01/27/2022 Fructosamine, ? No observation ? ? ? [facility] Serum recorded. [facility]: [address] [place] [address] 01/27/2022 BMP, Serum or ? No observation ? ? ? [facility] Plasma recorded. [facility]: [address] [place] [address] 09/30/2021 Glucose, Blood ? Blood 250 ? ? [facility] - Fingerstick, capillary Glucose: mg/dl Specialty: [address] [facility] 06/25/2021 Glucose, Blood ? Blood 150 ? ? [facility] - Fingerstick, capillary Glucose: mg/dl Specialty: [address] [facility] 06/07/2021 BMP, Serum or ? No observation ? ? ? [facility] Plasma recorded. [facility] L ab: [address], [place] 02/25/2021 Glucose, Blood ? Blood 143 ? ? [facility] - Fingerstick, capillary Glucose: mg/dl Specialty: [address] [facility] 02/19/2021 Fructosamine, ? No observation ? ? ? [facility] Serum recorded. [facility] L ab: [address], [place] 02/19/2021 HbA1C ? No observation ? ? ? [facility] (Hemoglobin recorded. [facility] a1C), Blood [facility] L ab: [address], [place] 02/19/2021 BMP, Serum or ? No observation ? ? ? [facility] Plasma recorded. [facility] L ab: [address], [place] 07/31/2020 Glucose, Blood ? Blood 177 ? ? [facility] - Fingerstick, capillary Glucose: mg/dl Specialty: [address] [facility] 07/24/2020 Parathyroid Ab, ? No observation ? ? ? [facility] Serum recorded. Center: [address] [facility] [address] 06/21/2020 BMP, Serum or ? No observation ? ? ? [facility] Plasma recorded. [facility]: [address] [place] [address] 05/02/2020 Glucose, ? Blood 143 ? ? [facility] - Fingerstick, Glucose: mg/dl Specialty: [address] Blood [facility] 04/26/2020 Fructosamine, ? No observation ? ? ? [facility] Serum recorded. [facility]: [address] [place] [address] 04/26/2020 HbA1C ? No observation ? ? ? [facility] (Hemoglobin recorded. [facility] a1C), [facility]: [address] [place] [address] 11/09/2019 Glucose, Blood ? Blood 165 ? ? [facility] - Fingerstick, capillary Glucose: mg/dl Specialty: [address] [facility] 09/20/2019 HbA1C ? No observation ? ? ? [facility] (Hemoglobin recorded. [facility] a1C), [facility]: [address] [place] [address] 09/20/2019 BMP, Serum or ? No observation ? ? ? [facility] Plasma recorded. [facility]: [address] [place] [address] 09/20/2019 Fructosamine, ? No observation ? ? ? [facility] Serum recorded. [facility]: [address] [place] [address] 07/05/2019 Glucose, Blood ? Blood 195 ? ? [facility] - Fingerstick, capillary Glucose: mg/dl Specialty: [address] Blood [facility] Past Encounters 04/01/2022 Type II Diabetes Mellitus Uncontrolled; Polyneuropathy Due to Diabetes Mellitus; Psoriatic Arthritis; Mixed Hyperlipidemia Due to Type 2 Diabetes Mellitus; Chronic Kidney Disease Stage 2 Bunny Santiago MD-FACE: [address] [place] [address], Ph. 02/17/2022 Type II Diabetes Mellitus Uncontrolled; Polyneuropathy Due to Diabetes Mellitus; Psoriatic Arthritis; Mixed Hyperlipidemia Due to Type 2 Diabetes Mellitus; Chronic Kidney Disease Stage 2 Bunny Santiago MD-FACE: [address] [place] [address], Ph. 01/06/2022 Type II Diabetes Mellitus Uncontrolled; Polyneuropathy Due to Diabetes Mellitus; Psoriatic Arthritis; Mixed Hyperlipidemia Due to Type 2 Diabetes Mellitus; Chronic Kidney Disease Stage 2 Bunny Santiago MD-FACE: [address] [place] [address], Ph. 11/11/2021 Type II Diabetes Mellitus Uncontrolled; Polyneuropathy Due to Diabetes Mellitus; Psoriatic Arthritis; Mixed Hyperlipidemia Due to Type 2 Diabetes Mellitus; Chronic Kidney Disease Stage 2 Bunny Santiago MD-FACE: [address] [place] [address], Ph. 09/30/2021 Type II Diabetes Mellitus Uncontrolled; Polyneuropathy Due to Diabetes Mellitus; Psoriatic Arthritis; Mixed Hyperlipidemia Due to Type 2 Diabetes Mellitus; Chronic Kidney Disease Stage 2 Bunny Santiago MD-FACE: [address] [place] [address], Ph. 06/25/2021 Type II Diabetes Mellitus Uncontrolled; Polyneuropathy Due to Diabetes Mellitus; Psoriatic Arthritis; Mixed Hyperlipidemia Due to Type 2 Diabetes Mellitus; Chronic Kidney Disease Stage 2 Bunny Santiago MD-FACE: [address] [place] [address], Ph. 02/25/2021 Type II Diabetes Mellitus Uncontrolled; Polyneuropathy Due to Diabetes Mellitus; Chronic Kidney Disease Stage 3; Psoriatic Arthritis Bunny Santiago MD-FACE: [address] [place] [address], Ph. Social History Tobacco Smoking Status Former Smoker Notes: Second h and smoke. Vaccine List Vaccine Type COVID-19 (SARS-COV-2) vaccine, unspecifi ed 12/23/2020 01/20/2021 COVID-19, mRNA, LNP-S, PF, 100 mcg/0.5 m L dose (Moderna) 08/18/2021 02/06/2022 influenza, injectable, quadrivalent 08/02/2021 Plan of Care Patient Goals A1c near 7.5% Pre meals Bg low to mid 100s AVOID Moderate or Severe Hypoglycemia Avoid any Nocturnal Hypoglycemia A1c near 7.5% Pre meals Bg low to mid 100s AVOID Moderate or Severe Hypoglycemia Avoid any Nocturnal Hypoglycemia A1c near 7.5% Pre meals Bg low to mid 100s AVOID Moderate or Severe Hypoglycemia Avoid any Nocturnal Hypoglycemia A1c near 7.5% Pre meals Bg low to mid 100s AVOID Moderate or Severe Hypoglycemia Avoid any Nocturnal Hypoglycemia A1c near 7.5% Pre meals Bg low to mid 100s AVOID Moderate or Severe Hypoglycemia Avoid any Nocturnal Hypoglycemia A1c near 7.5% Pre meals Bg low to mid 100s AVOID Moderate or Severe Hypoglycemia Avoid any Nocturnal Hypoglycemia A1c near 7.5% Pre meals Bg low to mid 100s AVOID Moderate or Severe Hypoglycemia Avoid any Nocturnal Hypoglycemia Patient Instructions GO FOR LABS week of June 10 2021 (fas ting, water only for 12 hours HEALTHY EATING HABITS ----Limited Carbohydrate: a) Limit [...] neck to toes. ------ Balance ORAL MEDICATIONS: ----Continue Metformin XR 500 mg one meño ly STOP IF Hospitalization or if Creatinine rises. GLP-1 AGONIST Injections ?No INSULIN THERAPY: --- Humalog according Pump Plan Now on Omnipod Pump. Basal rate 1,70 units hourly (down from 1.85) Bolus: pre meals Carbo coverage prior to learn Carbo coun ting. 4 unit s pre breakst 9 -10 AM 5 units pre lunch b 1 -2 PM 5 units at supper 6 P bedtime Use correction dose but subtaract 3 uni ts SHould Moniotr record Cabo intac BG TEST PLAN Record Blood Sugar daily Record BG pre meals / 2hour post meals / bedtime and 2 -3 AM P 1. we use Night Glucose and alana PREBREAK FAST To adjust Basal Rate 2. We use the Rise from Pre meal to 2 ho ur Post meals to adjust the quick bolus .CONTINUE KEEPING GOOD RECORDS. GO FOR LABS week of June 10 2021 (fas ting, water only for 12 hours HEALTHY EATING HABITS ----Limited Carbohydrate: a) Limit [...] neck to toes. ------ Balance ORAL MEDICATIONS: ----Continue Metformin XR 500 mg one meño ly STOP IF Hospitalization or if Creatinine rises. GLP-1 AGONIST Injections ?No INSULIN THERAPY: --- Humalog according Pump Plan Now on Omnipod Pump. Basal rate 0.5 units hourly Bolus: pre meals Carbo coverage prior to learn Carbo coun ting. 3 unit s pre breakst 9 -10 AM 4 units pre lunch b 1 -2 PM 4 units at supper 6 P bedtime Use correction dose but subtaract 3 uni ts SHould Moniotr record Cabo intac BG TEST PLAN Record Blood Sugar daily Record BG pre meals / 2hour post meals / bedtime and 2 -3 AM P 1. we use Night Glucose and alana PREBREAK FAST To adjust Basal Rate 2. We use the Rise from Pre meal to 2 ho ur Post meals to adjust the quick bolus .CONTINUE KEEPING GOOD RECORDS. GO FOR LABS week of June 10 2021 (fas ting, water only for 12 hours HEALTHY EATING HABITS ----Limited Carbohydrate: a) Limit [...] neck to toes. ------ Balance ORAL MEDICATIONS: ----Continue Metformin XR 500 mg one meño ly STOP IF Hospitalization or if Creatinine rises. GLP-1 AGONIST Injections ?No INSULIN THERAPY: --- Humalog according Pump Plan Transistioning to Omnipod Pump. Basal rate 0.6 units hourly Bolus: pre meals Carbo coverage prior to learn Carbo coun ting. 3 unit s pre breakst plus correction do se 4 units pre lunch plus correction dose 5 units at supper plus corretion dose bedtime Use correction dose but subtaract 3 uni ts Later with carbo 1 unit / 10 grams carbo units for each 60 gram 1 units / 30 mg above target 120 mg pre meals Omnipod BG TEST PLAN Record Blood Sugar daily Record BG pre meals / 2hour post meals / bedtime and 2 -3 AM P 1. we use Night Glucose and alana PREBREAK FAST To adjust Basal Rate 2. We use the Rise from Pre meal to 2 ho ur Post meals to adjust the carbo bolus .CONTINUE KEEPING GOOD RECORDS. GO FOR LABS week of June 10 2021 (fas ting, water only for 12 hours HEALTHY EATING HABITS ----Limited Carbohydrate: Learn to Count Carbo in grams a) Limit Bread, Noodles, Pasta, Potato, Rice [...] neck to toes. ------ Balance ORAL MEDICATIONS: ----Continue Metformin XR 500 mg one meño ly STOP IF Hospitalization or if Creatinine rises. GLP-1 AGONIST Injections ?No INSULIN THERAPY: Transistioning to Omnipod Pump. Basal rate 0.6 units hourly Bolus: 1 unit / 10 grams carbo eg 6 units for each 60 gram 1 units / 20 mg above target 120 mg pre meals Omnipod BG TEST PLAN Test Blood Sugar daily before meals and bedtime; Then test paired BG pre/ 2hour post meal s Test pre breakfast and 2 hours post kasia kfast every 4nd day of sixteen days ( of : ) [Total 2 times] T.est Pre and 2 hours Post lunch every 1 2 day of sixteen days ( of , ) [total 2 times] and Test Blood Sugar pre Supper and 2 ho urs Post supper every 8th day ( 8, 16, 24, ) . [total; 3 times] The daily pre breakfast blood sugar will document your fasting Glucose Control. The paired pre and 2 hour Post meal will document you Glucose Control after Meal Carbohydrate Load .CONTINUE KEEPING GOOD RECORDS. GO FOR LABS week of June 10 2021 (fas ting, water only for 12 hours HEALTHY EATING HABITS ----Limited Carbohydrate: a) Limit [...] neck to toes. ------ Balance ORAL MEDICATIONS: ----Continue Metformin XR 500 mg one meño ly STOP IF Hospitalization or if Creatinine rises. GLP-1 AGONIST Injections ?No INSULIN THERAPY: --- STOP Levemir day before start pump eg Oct 01. take no Levemir when pump begn --- Humalog according Pump Plan Transistioning to Omnipod Pump. Basal rate 0.6 units hourly Bolus: 1 unit / 10 grams carbo eg 6 units for each 60 gram 1 units / 20 mg above target 120 mg pre meals Omnipod TSLim IQ BG TEST PLAN Test Blood Sugar daily before meals and bedtime; Then test paired BG pre/ 2hour post meal s Test pre breakfast and 2 hours post kasia kfast every 4nd day of sixteen days ( of : ) [Total 2 times] T.est Pre and 2 hours Post lunch every 1 2 day of sixteen days ( of ) [...] Meal Carbohydrate Load .CONTINUE KEEPING GOOD RECORDS. GO FOR LABS week of June 10 2021 (fas ting, water only for 12 hours HEALTHY EATING HABITS ----Limited Carbohydrate: a) Limit [...] neck to toes. ------ Balance ORAL MEDICATIONS: ----Continue Metformin XR 500 mg one meño ly STOP IF Hospitalization or if Creatinine rises. GLP-1 AGONIST Injections ?No INSULIN THERAPY: ---Levemir 14 units in morning and 0 un its STOP If Hospitalized or if Creatinine r ises dramatically --- Humalog according to scale 3 to 24 u nits at each meal USe Higher dose HUmalog when on Prednis one return to old plan as blood sugar decre ase Considering Pump. Basal rate 0.6 units hourly Bolus: 1 unit / 10 grams carbo eg 6 units for each 60 gram 1 units / 20 mg above target 120 mg pre meals Omnipod TSLim IQ BG TEST PLAN Test Blood Sugar daily before meals and bedtime; Then test paired BG pre/ 2hour post meal s Test pre breakfast and 2 hours post kasia kfast every 4nd day of days ( of : ) [Total 2 [...] Meal Carbohydrate Load .CONTINUE KEEPING GOOD RECORDS. GO FOR LABS week of June 10 2021 (fas ting, water only for 12 hours HEALTHY EATING HABITS ----Limited Carbohydrate: a) Limit [...] neck to toes. ------ Balance ORAL MEDICATIONS: ----Continue Metformin XR 500 mg one meño ly STOP IF Hospitalization or if Creatinine rises. GLP-1 AGONIST Injections ?No INSULIN THERAPY: ---Levemir 12 units in morning and 0 un its STOP If Hospitalized or if Creatinine r ises dramatically --- Humalog according to scale 3 to 24 u nits at each meal USe Higher dose HUmalog when on Prednis one return to old plan as blood sugar [...] 2th day of sixteen days (days of month 12, 28 ) [total 2 times] and Test Blood [...] .CONTINUE KEEPING GOOD RECORDS. Reminders Provider Appointments None recorded. ? ? Lab None recorded. ? ? Referral None recorded. ? ? Procedures None recorded. ? ? Surgeries None recorded. ? ? Imaging None recorded. ? ? Vitals 04/01/2022 04:00PM ENDOCRINOLOGY FOLLOW UP 30 Height Weight BMI Blood Pressure 153.67 cm 88 kg 37.3 kg/m2 100/68 mm[Hg] 02/17/2022 12:30PM ENDOCRINOLOGY FOLLOW UP 30 Height Weight BMI Blood Pressure 153.67 cm 88.9 kg 37.6 kg/m2 124/78 mm[Hg] 01/06/2022 12:30PM Virtual Check-in Phone Height Weight BMI Blood Pressure 153.67 cm 127/65 mm[Hg] 09/30/2021 11:00AM ENDOCRINOLOGY FOLLOW UP 30 Height Weight BMI Blood Pressure 153.67 cm 86.64 kg 36.7 kg/m2 130/72 mm[Hg] 06/25/2021 09:30AM ENDOCRINOLOGY FOLLOW UP 30 Height Blood Pressure 153.67 cm 138/82 mm[Hg] 02/25/2021 10:00AM ENDOCRINOLOGY FOLLOW UP 30 Height Weight BMI Blood Pressure 153.67 cm 88 kg 37.3 kg/m2 126/70 mm[Hg] 11/27/2020 10:30AM Virtual Check-in Phone Height Weight BMI Blood Pressure 153.67 cm 86 kg 36.4 kg/m2 140/74 mm[Hg] 07/31/2020 10:30AM ENDOCRINOLOGY FOLLOW UP 30 Height [...]
[2022-07-10 09:23] VITALS: BP 148/81; PULSE 71
[2022-07-15 09:48] VITALS: BP 148/60; PULSE 71
== END 2022-07-18 23:59 | disposition home or self-care (01) ==
LOC: CR 09:52
PROVIDERS: PCP Family Medicine; Visit Provider Internal Medicine Cardiovascular Disease
DX: R69 Illness, unspecified (principal)

== ENCOUNTER 2022-08-07 10:03 | Outpatient (RCR) | payer SELFPAY ==
[2022-07-19 00:11] VITALS: BP 148/60; PULSE 71
[2022-07-22 09:58] VITALS: BP 138/64; PULSE 70; O2SAT 95
[2022-07-24 09:56] VITALS: BP 148/73; PULSE 85
[2022-07-29 09:44] VITALS: BP 132/59; PULSE 76
[2022-08-05 09:38] VITALS: BP 142/59; PULSE 70
[2022-08-07 10:32] VITALS: BP 149/63; PULSE 68
== END 2022-08-18 23:59 | disposition home or self-care (01) ==
LOC: CR 10:03
PROVIDERS: PCP Family Medicine; Visit Provider Internal Medicine Cardiovascular Disease
DX: R69 Illness, unspecified (principal)
CPT/HCPCS: S9472

== ENCOUNTER 2022-09-04 09:47 | Outpatient (RCR) | payer SELFPAY ==
[2022-08-19 00:05] VITALS: BP 149/63; PULSE 68
[2022-08-19 11:31] VITALS: BP 144/58; PULSE 59
[2022-08-21 09:49] VITALS: BP 137/54; PULSE 71; O2SAT 96
[2022-08-26 09:44] VITALS: BP 141/63; PULSE 68
[2022-09-02 09:37] VITALS: BP 149/71; PULSE 66
[2022-09-04 09:50] VITALS: BP 154/69; PULSE 74
== END 2022-09-17 23:59 | disposition home or self-care (01) ==
LOC: CR 09:47
PROVIDERS: PCP Family Medicine; Visit Provider Internal Medicine Cardiovascular Disease
DX: R69 Illness, unspecified (principal)

== ENCOUNTER 2022-10-07 10:06 | Outpatient (RCR) | payer SELFPAY ==
[2022-09-18 00:05] VITALS: BP 154/69; PULSE 74
[2022-09-23 10:12] VITALS: BP 143/66; PULSE 66
[2022-09-25 10:00] VITALS: BP 133/66; PULSE 78; O2SAT 96
[2022-09-30 10:09] VITALS: BP 134/55; PULSE 68; O2SAT 96
[2022-10-02 09:53] VITALS: BP 125/62; PULSE 61
[2022-10-07 10:02] VITALS: BP 151/66; PULSE 74
== END 2022-10-18 23:59 | disposition home or self-care (01) ==
LOC: CR 10:06
PROVIDERS: PCP Family Medicine; Visit Provider Internal Medicine Cardiovascular Disease
DX: R69 Illness, unspecified (principal)

== ENCOUNTER 2022-10-09 13:12 | Outpatient (REF) | payer MEDICARE, MEDICAID, SELFPAY ==
[2022-10-09 15:52] LABS: HCT 34.7 % (36.0-46.0); HGB 10.7 g/dL (11.2-15.7); MCH 25.4 pg (27.0-33.0); MCHC 30.8 % (32.0-36.0); MCV 82 fL (80-95); MPV 11.8 fL (8.0-11.0); Platelet Count 229 10^3/uL (130-400); RBC 4.21 10^6/uL (3.93-5.22); RDW 15.3 % (11.7-14.6); RDW-SD 46.1 fL; WBC 9.59 10^3/uL (4.4-10.8)
[2022-10-09 16:02] LABS: ESR 15 mm/hr (0-30)
[2022-10-09 16:10] LABS: ALT 24 U/L (14-59); AST 21 U/L (15-37); Albumin 3.7 g/dL (3.4-5.0); Alkaline Phosphatase 66 U/L (46-116); Anion Gap 9.1 mmol/L (3-11); BUN 24 mg/dL (7-18); Bilirubin, Total 0.3 mg/dL (0.2-1.0); C-Reactive Protein 0.15 mg/dL (0.0-0.3); CO2 26.9 mmol/L (21.0-32.0); CREATININE 1.1 mg/dL (0.55-1.02); Calcium 8.9 mg/dL (8.5-10.1); Chloride 104 mmol/L (98-107); Estimated GFR 51.11 (mL/min/1.73m2); Glucose 236 mg/dL (74-106); Potassium 4.3 mmol/L (3.5-5.1); Sodium 140 mmol/L (136-145); TSH (W/Ref FT4) 1.03 uIU/mL (0.36-3.74); Total Protein 7.2 g/dL (6.4-8.2)
[2022-10-10 08:54] LABS: Iron 37 ug/dL (50-170)
[2022-10-10 09:21] LABS: Vitamin B12 716 pg/mL (193-986)
== END 2022-10-09 13:13 | disposition home or self-care (01) ==
LOC: NCHCN 13:12
PROVIDERS: PCP Family Medicine; Visit Provider Family Medicine
DX: R53.83 Other fatigue (principal); E11.65 Type 2 diabetes mellitus with hyperglycemia; D64.9 Anemia, unspecified
CPT/HCPCS: 80053; 85027; 85652; 82607; 83540; 84443; 86140

== ENCOUNTER 2022-11-06 13:16 | Outpatient (REF) | payer MEDICARE, MEDICAID, SELFPAY ==
[2022-11-06 15:22] LABS: HCT 35.7 % (36.0-46.0); HGB 10.8 g/dL (11.2-15.7)
[2022-11-06 15:24] LABS: ESR 13 mm/hr (0-30)
[2022-11-06 15:34] LABS: Anion Gap 7.8 mmol/L (3-11); BUN 24 mg/dL (7-18); CO2 26.2 mmol/L (21.0-32.0); CREATININE 1.1 mg/dL (0.55-1.02); Calcium 9.1 mg/dL (8.5-10.1); Chloride 104 mmol/L (98-107); Estimated GFR 51.11 (mL/min/1.73m2); Glucose 194 mg/dL (74-106); Potassium 4.7 mmol/L (3.5-5.1); Sodium 138 mmol/L (136-145)
[2022-11-06 15:43] LABS: Iron 85 ug/dL (50-170); Total Iron Binding Capacity 391 ug/dL (250-450); Transferrin Sat 22 % (15-50)
[2022-11-06 15:57] LABS: Hemoglobin A1C 8.4 % (<5.7)
[2022-11-06 16:03] LABS: Ferritin 23 ng/mL (8-252)
[2022-11-06 16:20] LABS: C-Reactive Protein 0.16 mg/dL (0.0-0.3)
[2022-11-08 11:33] LABS: Fructosamine 307 mcmol/L (200 - 285)
== END 2022-11-06 13:17 | disposition home or self-care (01) ==
LOC: NCHCN 13:16
PROVIDERS: Internal Medicine Endocrinology, Diabetes & Metabolism; PCP Family Medicine; Visit Provider Family Medicine
DX: D64.9 Anemia, unspecified (principal); E11.65 Type 2 diabetes mellitus with hyperglycemia; M35.3 Polymyalgia rheumatica
CPT/HCPCS: 80048; 85652; 82728; 82746; 82985; 83036; 83540; 83550; 85014; 85018; 86140

== ENCOUNTER 2022-11-18 09:45 | Outpatient (RCR) | payer SELFPAY ==
[2022-10-19 00:17] VITALS: BP 151/66; PULSE 74
[2022-10-21 09:54] VITALS: BP 140/70; PULSE 82
[2022-10-23 09:36] VITALS: BP 122/65; PULSE 81
[2022-10-28 10:07] VITALS: BP 150/70; PULSE 71
[2022-10-30 10:41] VITALS: BP 156/68; PULSE 73
[2022-11-06 09:59] VITALS: BP 152/69; PULSE 67
[2022-11-11 11:05] VITALS: BP 131/66; PULSE 71
[2022-11-18 13:22] VITALS: BP 131/65; PULSE 74
== END 2022-11-18 23:59 | disposition home or self-care (01) ==
LOC: CR 09:45
PROVIDERS: PCP Family Medicine; Visit Provider Internal Medicine Cardiovascular Disease
DX: R69 Illness, unspecified (principal)

== ENCOUNTER 2023-01-13 09:55 | Outpatient (RCR) | payer SELFPAY ==
[2022-12-17 00:17] VITALS: BP 147/74; PULSE 56
[2023-01-01 10:00] VITALS: BP 141/69; PULSE 72
[2023-01-06 10:22] VITALS: BP 150/63; PULSE 71
[2023-01-08 10:09] VITALS: BP 137/64; PULSE 76
[2023-01-13 09:50] VITALS: BP 132/65; PULSE 68
[2023-01-20 10:08] VITALS: BP 126/60; PULSE 69
== END 2023-01-16 23:59 | disposition home or self-care (01) ==
LOC: CR 09:55
PROVIDERS: PCP Family Medicine; Visit Provider Internal Medicine Cardiovascular Disease

== ENCOUNTER 2023-01-29 16:48 | Outpatient (REF) | payer MEDICARE, MEDICAID, SELFPAY ==
[2023-01-29 15:52] LABS: ALT 16 U/L (14-59); AST 20 U/L (15-37); Albumin 3.6 g/dL (3.4-5.0); Alkaline Phosphatase 76 U/L (46-116); Anion Gap 6.6 mmol/L (3-11); BUN 18 mg/dL (7-18); Bilirubin, Total 0.3 mg/dL (0.2-1.0); C-Reactive Protein 0.87 mg/dL (0.0-0.3); CO2 26.4 mmol/L (21.0-32.0); CREATININE 1.1 mg/dL (0.55-1.02); Calcium 9.5 mg/dL (8.5-10.1); Chloride 105 mmol/L (98-107); Creatine Kinase 80 U/L (26-192); Estimated GFR 51.11 (mL/min/1.73m2); Glucose 142 mg/dL (74-106); Potassium 4.8 mmol/L (3.5-5.1); Sodium 138 mmol/L (136-145); Total Protein 7.3 g/dL (6.4-8.2)
[2023-01-29 15:57] LABS: HCT 36.2 % (36.0-46.0); HGB 11.6 g/dL (11.2-15.7); MCH 28.3 pg (27.0-33.0); MCV 88 fL (80-95); MPV 11.2 fL (8.0-11.0); Platelet Count 329 10^3/uL (130-400); RDW 13.1 % (11.7-14.6); RDW-SD 41.8 fL; WBC 8.82 10^3/uL (4.4-10.8)
[2023-01-29 16:25] LABS: ESR 32 mm/hr (0-30)
[2023-01-29 17:15] LABS: Cholesterol 121 mg/dL (<200)
[2023-01-29 17:28] LABS: Calculated LDL 25 mg/dL (<100); HDL Cholesterol 50 mg/dL (40-60); Triglyceride 234 mg/dL (<150)
== END 2023-01-29 16:49 | disposition home or self-care (01) ==
LOC: NCHCN 16:48
PROVIDERS: PCP Family Medicine; Visit Provider Family Medicine
DX: D64.9 Anemia, unspecified (principal); E11.9 Type 2 diabetes mellitus without complications; M35.3 Polymyalgia rheumatica; E78.5 Hyperlipidemia, unspecified
CPT/HCPCS: 80053; 80061; 82550; 85027; 85652; 86140

== ENCOUNTER 2023-02-05 10:07 | Outpatient (RCR) | payer SELFPAY ==
[2023-01-17 00:21] VITALS: BP 132/65; PULSE 68
[2023-01-22 10:14] VITALS: BP 140/61; PULSE 72
[2023-01-27 09:53] VITALS: BP 143/61; PULSE 68
[2023-02-03 10:08] VITALS: BP 132/67; PULSE 66
== END 2023-02-15 23:59 | disposition home or self-care (01) ==
LOC: CR 10:07
PROVIDERS: PCP Family Medicine; Visit Provider Internal Medicine Cardiovascular Disease
DX: R69 Illness, unspecified (principal)

== ENCOUNTER 2023-02-26 14:45 | Outpatient (REF) | payer MEDICARE, MEDICAID, SELFPAY ==
[2023-02-26 16:12] LABS: ESR 30 mm/hr (0-30)
[2023-02-26 16:13] LABS: HCT 37.5 % (36.0-46.0); HGB 11.6 g/dL (11.2-15.7)
[2023-02-26 16:29] LABS: C-Reactive Protein 0.65 mg/dL (0.0-0.3)
[2023-02-27 10:29] LABS: Creatine Kinase 53 U/L (26-192)
== END 2023-02-26 14:46 | disposition home or self-care (01) ==
LOC: NCHCN 14:45
PROVIDERS: PCP Family Medicine; Visit Provider Family Medicine
DX: M35.3 Polymyalgia rheumatica (principal); M25.40 Effusion, unspecified joint; D64.9 Anemia, unspecified; E78.5 Hyperlipidemia, unspecified
CPT/HCPCS: 82550; 85652; 85014; 85018; 86140

== ENCOUNTER 2023-03-11 12:46 | Outpatient (REF) | payer MEDICARE, MEDICAID, SELFPAY ==
[2023-03-11 16:03] LABS: Hemoglobin A1C 7.2 % (<5.7)
[2023-03-11 16:12] LABS: Anion Gap 8.6 mmol/L (3-11); BUN 22 mg/dL (7-18); CO2 27.4 mmol/L (21.0-32.0); CREATININE 0.9 mg/dL (0.55-1.02); Chloride 105 mmol/L (98-107); Estimated GFR 65.03 (mL/min/1.73m2); Glucose 98 mg/dL (74-106); Potassium 4.1 mmol/L (3.5-5.1); Sodium 141 mmol/L (136-145)
[2023-03-13 13:07] LABS: Fructosamine 241 mcmol/L (200 - 285)
== END 2023-03-11 12:47 | disposition home or self-care (01) ==
LOC: LBN 12:46
PROVIDERS: PCP Family Medicine; Visit Provider Internal Medicine Endocrinology, Diabetes & Metabolism
DX: E11.65 Type 2 diabetes mellitus with hyperglycemia (principal)
CPT/HCPCS: 80048; 82985; 83036

== ENCOUNTER 2023-03-13 00:27 | Outpatient (CLI) | payer MEDICARE, MEDICAID, SELFPAY ==
--- NOTE | 2023-03-13 | DI.RAD_ITS ---
Exam(s) XR ARTHRITIS SERIES EXAM: XR ARTHRITIS SERIES CLINICAL HISTORY: BILAT HAND PAIN,? H/O PSORIASIS,EVALUATE FOR PSA,OA OR CPDD. TECHNIQUE: 2D digital imaging was performed. COMPARISON: No exams were available for comparison FINDINGS: Two views: No evidence of fractures. No soft tissue calcifications. No erosions. Moderate degenerative change s are noted at the 1st carpometacarpal joint and triscaphe 4 joint on the left side. Less findings a t these joints on the opposite-right side. There is narrowing of the med at carpophalangeal joint se e of the 3rd fingers on both sides but without erosions evident. Mild degenerative changes in the pr oximal interphalangeal joints. With respect of the DIP joints, there are significant narrowing seen in the DIP joints of the bilateral index-2nd fingers. Also in the 4th-ring fingers. IMPRESSION: Findings as above. DATA REPOSITORY: RADIATION DOSE DELIVERED:
== END 2023-03-13 00:47 ==
LOC: DI 00:27
PROVIDERS: PCP Family Medicine; Visit Provider Internal Medicine Rheumatology
DX: M79.641 Pain in right hand (principal); M79.642 Pain in left hand
CPT/HCPCS: 73120

== ENCOUNTER 2023-03-17 10:19 | Outpatient (RCR) | payer SELFPAY ==
[2023-02-16 00:08] VITALS: BP 132/67; PULSE 66
[2023-02-17 10:26] VITALS: BP 131/68; PULSE 56
[2023-02-19 09:57] VITALS: BP 150/77; PULSE 68
[2023-02-24 10:06] VITALS: BP 127/71; PULSE 57
[2023-03-10 09:47] VITALS: BP 135/55; PULSE 58
[2023-03-12 10:02] VITALS: BP 133/60; PULSE 53
[2023-03-17 10:30] VITALS: BP 143/59; PULSE 72
== END 2023-03-18 23:59 | disposition home or self-care (01) ==
LOC: CR 10:19
PROVIDERS: PCP Family Medicine; Visit Provider Internal Medicine Cardiovascular Disease

== ENCOUNTER 2023-04-09 09:54 | Outpatient (RCR) | payer SELFPAY ==
[2023-03-19 00:05] VITALS: BP 143/59; PULSE 72
[2023-03-19 10:23] VITALS: BP 133/64; PULSE 65
[2023-03-24 09:53] VITALS: BP 126/69; PULSE 59
[2023-03-31 10:32] VITALS: BP 148/66; PULSE 68
[2023-04-02 09:51] VITALS: BP 122/65; PULSE 67
[2023-04-07 09:53] VITALS: BP 137/60; PULSE 65
[2023-04-09 09:58] VITALS: BP 141/60; PULSE 68
== END 2023-04-17 23:59 | disposition home or self-care (01) ==
LOC: CR 09:54
PROVIDERS: PCP Family Medicine; Visit Provider Internal Medicine Cardiovascular Disease
DX: R69 Illness, unspecified (principal)

== ENCOUNTER 2023-05-05 08:07 | Outpatient (CLI) | payer MEDICARE, MEDICAID, SELFPAY ==
--- NOTE | 2023-05-05 08:00 | RT.EKG_ITS ---
APPROVED REPORT Exam: Resting ECG Reason for Exam: CAD Patient Location: O HR:77 bpm ECG Measurements Heart Rate 77 AXIS MA 170 P 15 QRSd 139 QRS 18 QT 377 T -3 QTc 427 Conclusion Sinus rhythm...normal P axis, V-rate 50- 99 Right bundle branch block...QRSd>120, terminal axis(90,270) Baseline wander in lead(s) V1,V2,V5,V6
== END 2023-05-05 08:08 | disposition home or self-care (01) ==
LOC: DI.CARD 08:09
PROVIDERS: PCP Family Medicine; Visit Provider Internal Medicine Cardiovascular Disease
DX: I25.10 Atherosclerotic heart disease of native 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 without angina pectoris (principal)
CPT/HCPCS: 93010

== ENCOUNTER → 2023-05-05 10:00 | Outpatient (BNVA) | payer MEDICARE, MEDICAID, SELFPAY | PROVIDERS: PCP Family Medicine; Visit Provider Internal Medicine Cardiovascular Disease | DX: I25.10 Atherosclerotic heart disease of native 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 without angina pectoris (principal); I47.1 Supraventricular tachycardia; I10 Essential (primary) hypertension | CPT/HCPCS: 93005; 99213 ==

== ENCOUNTER 2023-05-14 09:58 | Outpatient (RCR) | payer SELFPAY ==
[2023-04-18 00:14] VITALS: BP 141/60; PULSE 68
[2023-05-05 10:07] VITALS: BP 145/79; PULSE 84
[2023-05-07 09:29] VITALS: BP 132/71; PULSE 63
[2023-05-12 10:06] VITALS: BP 142/65; PULSE 63
[2023-05-14 10:07] VITALS: BP 132/67; PULSE 71
== END 2023-05-18 23:59 | disposition home or self-care (01) ==
LOC: CR 09:58
PROVIDERS: PCP Family Medicine; Visit Provider Internal Medicine Cardiovascular Disease
DX: R69 Illness, unspecified (principal)

== ENCOUNTER 2023-05-21 18:31 | Outpatient (REF) | payer MEDICARE, MEDICAID, SELFPAY ==
[2023-05-21 15:55] LABS: HCT 35.1 % (36.0-46.0); HGB 11.2 g/dL (11.2-15.7)
[2023-05-21 16:12] LABS: ESR 7 mm/hr (0-30)
[2023-05-21 16:37] LABS: C-Reactive Protein 0.08 mg/dL (0.0-0.3)
[2023-05-21 16:46] LABS: Digoxin 0.68 ng/mL (0.90-2.00)
[2023-05-21 17:13] LABS: Hemoglobin A1C 7.1 % (<5.7)
== END 2023-05-21 18:32 | disposition home or self-care (01) ==
LOC: NCHCN 18:31
PROVIDERS: PCP Family Medicine; Visit Provider Family Medicine
DX: M35.3 Polymyalgia rheumatica (principal); E11.65 Type 2 diabetes mellitus with hyperglycemia; I25.10 Atherosclerotic heart disease of native 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 without angina pectoris; I47.1 Supraventricular tachycardia; D64.9 Anemia, unspecified; Z79.899 Other long term (current) drug therapy
CPT/HCPCS: 85652; 80162; 83036; 85014; 85018; 86140

== ENCOUNTER 2023-06-03 12:00 | Outpatient (REF) | payer MEDICARE, MEDICAID, SELFPAY ==
--- NOTE | 2023-06-03 10:15 | TONG_PTH ---
PATIENT: Francisca Kong LOC: [facility] U#:[id number] AGE/SX: 78/F ROOM: RE06/03/[address]: Timothy Colorado MD : 1945 BED: DIS: 06/03/2023 SPEC #: [id number] RECD: 06/04/23 16:47 STATUS: MAYNOR REQ #: [id number] DESHAUN: 06/03/23 10:[address]: Timothy Colorado DEPT: Surgical Specimen RECD BY: Maria Teresa Weems ENTERED: 06/04/23 16:57 SP TYPE: ROB THAKKAR DR: Terri Bowser V Tissues: 1 - TONGUE BIOPSY Procedures: GROSS AND MICRO LEVEL 4 Comments: [id number]
== END 2023-06-03 12:01 | disposition home or self-care (01) ==
LOC: LBN 12:00
PROVIDERS: PCP Family Medicine; Visit Provider Otolaryngology
DX: K14.3 Hypertrophy of tongue papillae (principal); K14.0 Glossitis
CPT/HCPCS: 88305

== ENCOUNTER → 2023-06-16 01:28 | Outpatient (CLI) | payer MEDICARE, MEDICAID, SELFPAY ==
--- NOTE | 2023-06-16 11:01 | DI.RAD_ITS ---
Exam(s) XR SHOULDER LT COMPLETE 2+V EXAM: XR SHOULDER LT COMPLETE 2+V CLINICAL HISTORY: CHRONIC PAIN BOTH SHOULDERS M25.511 G89.29 M25.512 EVAL FOR OA IMFLAMMATORY. TECHNIQUE: 2D digital imaging was performed of the left shoulder. Four images were obtained. AP, G rashey, and Y views were obtained. COMPARISON: CR XR SHOULDER LT COMPLETE 2+V from 11/23/2019 FINDINGS: BONES: No acute fracture is present. No bony destructive lesion is seen. JOINTS: No dislocation present. Mild degenerative changes are seen at the acromioclavicular and gleno humeral joints. No erosions are seen. SOFT TISSUE: Incidental note is again made of a large hiatal hernia. Faint calcification is seen adj acent to the greater tuberosity suggesting calcific tendinitis. IMPRESSION: Mild degenerative changes of the shoulder. Calcific tendinosis. DATA REPOSITORY: RADIATION DOSE DELIVERED:
--- NOTE | 2023-06-16 11:01 | DI.RAD_ITS ---
Exam(s) XR SHOULDER RT COMPLETE 2+V EXAM: XR SHOULDER RT COMPLETE 2+V CLINICAL HISTORY: CHRONIC PAIN BOTH SHOULDERS M25.511 G89.29 M25.512 EVAL FOR OA IMFLAMMATORY. TECHNIQUE: 2D digital imaging was performed of the right shoulder. Four images were obtained. AP, Grashey, and Y views were obtained. COMPARISON: No exams were available for comparison FINDINGS: BONES: No acute fracture is present. No bony destructive lesion is seen. JOINTS: No dislocation present. Degenerative changes are seen at the acromioclavicular and glenohumer al joints. No erosions are seen. SOFT TISSUE: Normal. IMPRESSION: Mild degenerative changes of the shoulder. DATA REPOSITORY: RADIATION DOSE DELIVERED:
== END ==
PROVIDERS: PCP Family Medicine; Visit Provider Internal Medicine Rheumatology
DX: M19.011 Primary osteoarthritis, right shoulder (principal); M19.012 Primary osteoarthritis, left shoulder; M65.222 Calcific tendinitis, left upper arm
CPT/HCPCS: 73030

== ENCOUNTER 2023-06-18 09:58 | Outpatient (RCR) | payer SELFPAY ==
[2023-05-19 00:13] VITALS: BP 132/67; PULSE 71
[2023-05-19 10:09] VITALS: BP 131/65; PULSE 65
[2023-06-02 10:12] VITALS: BP 132/66; PULSE 65
[2023-06-04 09:58] VITALS: BP 143/62; PULSE 72
[2023-06-09 09:52] VITALS: BP 126/67; PULSE 67
[2023-06-16 10:04] VITALS: BP 153/81; PULSE 71
[2023-06-18 10:09] VITALS: BP 136/57; PULSE 61
== END 2023-06-18 23:59 | disposition home or self-care (01) ==
LOC: CR 09:58
PROVIDERS: PCP Family Medicine; Visit Provider Internal Medicine Cardiovascular Disease
DX: R69 Illness, unspecified (principal)

== ENCOUNTER 2023-07-09 10:34 | Outpatient (RCR) | payer SELFPAY ==
[2023-06-19 00:19] VITALS: BP 136/57; PULSE 61
[2023-06-23 11:17] VITALS: BP 161/70; PULSE 68
[2023-06-25 10:03] VITALS: BP 123/55; PULSE 53
[2023-06-30 10:07] VITALS: BP 142/65; PULSE 64
[2023-07-02 10:10] VITALS: BP 121/57; PULSE 57
[2023-07-07 10:05] VITALS: BP 112/66; PULSE 48
[2023-07-09 10:35] VITALS: BP 112/58; PULSE 69
== END 2023-07-18 23:59 | disposition home or self-care (01) ==
LOC: CR 10:34
PROVIDERS: PCP Family Medicine; Visit Provider Internal Medicine Cardiovascular Disease
DX: R69 Illness, unspecified (principal)

== ENCOUNTER 2023-07-13 15:22 | Outpatient (CLI) | payer MEDICARE, MEDICAID, SELFPAY ==
--- NOTE | 2023-07-13 13:45 | DI.RAD_ITS ---
Exam(s) XR KNEE LT 3V AP,LAT,JOSE EXAM: XR KNEE LT 3V AP,LAT,JOSE CLINICAL HISTORY: knee pain. TECHNIQUE: 2D digital imaging was performed of the left knee. Three images were obtained. AP, late ral and PA tunnel views were obtained. COMPARISON: CR XR CHEST 2V PA LATERAL from 03/12/2021 FINDINGS: BONES: No acute fracture is present. No bony destructive lesion is seen. JOINTS: There are marked tricompartment degenerative changes in the left knee characterized by joint space narrowing and osteophytes. The findings are most marked in the medial femoral tibial and recinos lofemoral joint. No significant joint effusion is seen. No loose body. SOFT TISSUE: Atherosclerosis. IMPRESSION: Marked osteoarthritis of the left knee. DATA REPOSITORY: RADIATION DOSE DELIVERED:
--- NOTE | 2023-07-13 13:45 | DI.RAD_ITS ---
Exam(s) XR KNEE RT 3V AP,LAT,JOSE EXAM: XR KNEE RT 3V AP,LAT,JOSE CLINICAL HISTORY: knee pain. TECHNIQUE: 2D digital imaging was performed of the right knee. Three views obtained. AP, lateral an d PA tunnel views were obtained. COMPARISON: CR XR KNEE LT 3V AP,LAT,JOSE from 07/13/2023 FINDINGS: BONES: No acute fracture is present. No bony destructive lesion is seen. JOINTS: There are marked degenerative changes in the right knee seen in all 3 joint compartments blanca acterized by joint space narrowing and osteophytes. The findings are most marked in the medial femor al tibial patellofemoral joints. There is chondrocalcinosis noted in the lateral femoral tibial join t. No joint effusion is seen. SOFT TISSUE: Atherosclerosis. IMPRESSION: Marked osteoarthritis of the right knee. DATA REPOSITORY: RADIATION DOSE DELIVERED:
== END 2023-07-13 15:23 | disposition home or self-care (01) ==
LOC: DIORS 15:22
PROVIDERS: PCP Family Medicine; Referring Provider Family Medicine; Visit Provider Student in an Organized Health Care Education/Training Program
DX: M17.11 Unilateral primary osteoarthritis, right knee; M17.12 Unilateral primary osteoarthritis, left knee
CPT/HCPCS: 20610; 73562; 99213; J1030

== ENCOUNTER → 2023-07-14 01:13 | Outpatient (CLI) | payer MEDICARE, MEDICAID, SELFPAY ==
--- NOTE | 2023-07-14 | DI.US_ITS ---
Exam(s) US RENAL EXAM: US RENAL CLINICAL HISTORY: F/U RENAL CYSTS, N28.1. TECHNIQUE: [place] scale, color and spectral Doppler were used. COMPARISON: US US RENAL from 07/18/2019 US US ABDOMEN from 12/14/[address] ABDOMEN WO/W from 07/09/2022 FINDINGS: Renal size in cm: Right: 10. Left: 10. Echogenicity: Normal. Hydronephrosis: No. Cyst or mass: There are bilateral renal cysts. There is a stable 1.1 cm left renal cysts. There are several right renal cysts. The largest is seen inferiorly and measures 6.4 x 7 x 7.2 cm. There is linear internal echogenic focus which may represent a calcification which was present on the prior ex aminations. There is a complex 2.3 x 1.8 x 1.9 cm cyst in the renal pelvis. This can be seen on the CT scan from 07/09/2022. Prior ultrasound does show some internal septation on the cyst which has a similar appearance. There is a simple 1.8 cm superior pole renal cyst on the right. Nephrolithiasis: No. Other findings: None. Bladder:Bladder is not fully distended. Ureteral jets: Right: Not visualized on this examination. Left: Not visualized on this examination. Prevoid vol:130 cc Postvoid vol:0 cc Renal color flow: Symmetric and within normal limits. IMPRESSION: Stable bilateral renal cysts. DATA REPOSITORY:
== END ==
PROVIDERS: PCP Family Medicine; Visit Provider Surgery
DX: N28.1 Cyst of kidney, acquired (principal)
CPT/HCPCS: 76770

== ENCOUNTER 2023-08-07 10:40 | Outpatient (CLI) | payer MEDICARE, MEDICAID, SELFPAY ==
--- NOTE | 2023-08-07 08:15 | DI.US_ITS ---
Exam(s) US LOWER EXTREMITY VENOUS LT EXAM: US LOWER EXTREMITY VENOUS LT CLINICAL HISTORY: calf pain left, DVT left, I82.402, I82.409, M79.662 pain TECHNIQUE: Grayscale, color, and doppler imaging of the deep venous system of the left lower extremi ty was performed. COMPARISON: US US RENAL from 07/14/2023 FINDINGS: There is no evidence of intraluminal thrombus and there is normal compression and augmentation demons trated within the common femoral vein, femoral vein, and popliteal vein. In the ipsilateral calf the interrogated veins also exhibit normal compression/ augmentation properti es. The ipsilateral saphenofemoral junction is patent. IMPRESSION: 1. No evidence of DVT in the left lower extremity. DATA REPOSITORY:
== END 2023-08-07 11:00 ==
LOC: DI 10:41
PROVIDERS: PCP Family Medicine; Visit Provider Podiatrist
DX: I82.402 Acute embolism and thrombosis of unspecified deep veins of left lower extremity (principal); M79.662 Pain in left lower leg
CPT/HCPCS: 93971

== ENCOUNTER 2023-08-13 13:09 | Outpatient (REF) | payer MEDICARE, MEDICAID, SELFPAY ==
[2023-08-13 16:30] LABS: ESR 7 mm/hr (0-30); HCT 33.8 % (36.0-46.0); HGB 10.6 g/dL (11.2-15.7)
[2023-08-13 16:41] LABS: ALT 25 U/L (14-59); AST 20 U/L (15-37); Albumin 4.1 g/dL (3.4-5.0); Alkaline Phosphatase 59 U/L (46-116); Anion Gap 5.1 mmol/L (3-11); BUN 22 mg/dL (7-18); Bilirubin, Total 0.3 mg/dL (0.2-1.0); C-Reactive Protein < 0.05 mg/dL (0.0-0.3); CO2 28.9 mmol/L (21.0-32.0); Calcium 9.7 mg/dL (8.5-10.1); Chloride 103 mmol/L (98-107); Estimated GFR 56.95 (mL/min/1.73m2); Glucose 143 mg/dL (74-106); Potassium 4.5 mmol/L (3.5-5.1); Sodium 137 mmol/L (136-145); Total Protein 7.5 g/dL (6.4-8.2)
[2023-08-13 19:50] LABS: Bacteria Rare HPF (Negative); C & S Indicated? C&S Done As Ordered; Casts Negative LPF (Negative); Crystals Negative HPF (Negative); Epithelial Cells Few HPF (Negative); Mucus Negative (Negative); RBC Negative HPF (0-2)
== END 2023-08-13 13:10 | disposition home or self-care (01) ==
LOC: NCHCN 13:09
PROVIDERS: PCP Family Medicine; Visit Provider Family Medicine
DX: E11.65 Type 2 diabetes mellitus with hyperglycemia (principal); R35.0 Frequency of micturition; R32 Unspecified urinary incontinence
CPT/HCPCS: 80053; 85652; 81015; 85014; 85018; 86140; 87086

== ENCOUNTER 2023-08-18 09:53 | Outpatient (RCR) | payer SELFPAY ==
[2023-07-19 00:16] VITALS: BP 112/58; PULSE 69
[2023-07-21 10:01] VITALS: BP 137/66; PULSE 64
[2023-07-30 09:55] VITALS: BP 114/64; PULSE 69
[2023-07-30 10:06] VITALS: BP 114/64; PULSE 69
[2023-08-04 10:06] VITALS: BP 127/55; PULSE 57
[2023-08-06 10:18] VITALS: BP 131/64; PULSE 62
[2023-08-11 10:46] VITALS: BP 140/54; PULSE 70
[2023-08-18 10:48] VITALS: BP 153/83; PULSE 67
== END 2023-08-18 23:59 | disposition home or self-care (01) ==
LOC: CR 09:53
PROVIDERS: PCP Family Medicine; Visit Provider Internal Medicine Cardiovascular Disease
DX: R69 Illness, unspecified (principal)

== ENCOUNTER → 2023-09-15 02:31 | Outpatient (CLI) | payer MEDICARE, MEDICAID, SELFPAY ==
--- NOTE | 2023-09-15 | DI.RAD_ITS ---
Exam(s) XR CHEST 2V PA LATERAL EXAM: XR CHEST 2V PA LATERAL CLINICAL HISTORY: CHRONIC OBSTRUCTIVE LUNG DISEASE J44.9. TECHNIQUE: 2D digital imaging was performed. COMPARISON: CR XR CHEST 2V PA LATERAL from 03/12/2021 FINDINGS: 2 views: There is a prominent hiatal hernia again noted. This measures 12 cm across by 9 cm cephalocaudal by 8 cm AP. Heart size is normal. The mediastinum is not widened. Lungs are clear. No infiltrates nor pleural effusions. IMPRESSION: No acute pulmonary findings. Large hiatal hernia. This has slightly further increased in size. Measurements as above. DATA REPOSITORY: RADIATION DOSE DELIVERED:
== END ==
PROVIDERS: PCP Family Medicine; Visit Provider Family Medicine
DX: J44.9 Chronic obstructive pulmonary disease, unspecified (principal)
CPT/HCPCS: 71046

== ENCOUNTER 2023-09-17 09:52 | Outpatient (RCR) | payer SELFPAY ==
[2023-08-19 00:21] VITALS: BP 112/58; PULSE 69
[2023-09-01 10:20] VITALS: BP 150/64; PULSE 69
[2023-09-03 10:49] VITALS: BP 134/66; PULSE 68
[2023-09-15 09:49] VITALS: BP 153/72; PULSE 66
[2023-09-17 10:09] VITALS: BP 152/65; PULSE 72
== END 2023-09-17 23:59 | disposition home or self-care (01) ==
LOC: CR 09:52
PROVIDERS: PCP Family Medicine; Visit Provider Internal Medicine Cardiovascular Disease
DX: Z51.89 Encounter for other specified aftercare (principal); I25.10 Atherosclerotic heart disease of native 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 without angina pectoris

== ENCOUNTER 2023-10-15 10:00 | Outpatient (RCR) | payer SELFPAY ==
[2023-09-18 00:11] VITALS: BP 112/58; PULSE 69
[2023-10-13 14:53] VITALS: BP 165/82; PULSE 69
[2023-10-15 10:03] VITALS: BP 134/70; PULSE 65
== END 2023-10-18 23:59 | disposition home or self-care (01) ==
LOC: CR 10:00
PROVIDERS: PCP Family Medicine; Visit Provider Internal Medicine Cardiovascular Disease
DX: R69 Illness, unspecified (principal)

== ENCOUNTER → 2023-10-16 01:39 | Outpatient (CLI) | payer MEDICARE, MEDICAID, SELFPAY ==
[2023-09-29 10:15] VITALS: BP 141/65; PULSE 69
[2023-10-08 10:11] VITALS: BP 144/72; PULSE 71
--- NOTE | 2023-10-16 11:30 | DI.MAMMO_ITS ---
Exam(s) MG MAMMO SCREENING 60 MIN DUR EXAM: MG MAMMO SCREENING 60 MIN DUR CLINICAL HISTORY: SCREENING, Z12.31. TECHNIQUE: Bilateral full field digital CC and MLO mammographic images were obtained with 3D tomosyn thesis and utilizing computer aided detection (CAD). COMPARISON: Prior mammograms were reviewed. FINDINGS: There has been no significant change in the appearance and distribution of the fibroglandular tissue. Benign-appearing microcalcifications in both breasts are again noted. There are no new spiculated masses nor malignant appearing microcalcification groups. There is no significant architectural distortion nor skin thickening-retraction. IMPRESSION: No radiographic evidence of malignancy. BI-RADS Category 1 - Negative Breast Density - Category B - Scattered areas of fibroglandular density Breast density Category C or D implies that the patient has dense breast tissue. Dense breast tissue can make it harder to find cancer on a mammogram. Dense breast tissue is also associated with an incr eased risk of breast cancer. This information about the result of the mammogram report was provided to the patient to raise their awareness. Use this report when you speak with the patient about their risks for breast cancer, which includes their family history. At that time, you may recommend additional screening tests (Ultrasoun d or MRI) as these tests may add significant information. A negative radiographic report should not delay biopsy if a dominant or clinically suspicious mass is present. Up to ten percent of cancers are not identified on mammography. A negative report may reinforce clinical impression. Adenosis and dense breasts may obscure an underlying neoplasm. False positive reports average 6 to 10%. Patient will receive a letter notifying them of these results.
== END ==
PROVIDERS: PCP Family Medicine; Visit Provider Family Medicine
DX: Z12.31 Encounter for screening mammogram for malignant neoplasm of breast (principal)
CPT/HCPCS: 77063; 77067

== ENCOUNTER → 2023-10-26 10:18 | Outpatient (BNVA) | payer MEDICARE, MEDICAID, SELFPAY | PROVIDERS: PCP Family Medicine; Referring Provider Podiatrist; Visit Provider Physical Therapy Assistant | DX: I73.89 Other specified peripheral vascular diseases (principal); I82.402 Acute embolism and thrombosis of unspecified deep veins of left lower extremity; E11.40 Type 2 diabetes mellitus with diabetic neuropathy, unspecified | CPT/HCPCS: 93922 ==

== ENCOUNTER 2023-11-06 15:05 | Outpatient (REF) | payer MEDICARE, MEDICAID, SELFPAY ==
[2023-11-06 15:23] LABS: HCT 39.5 % (36.0-46.0); HGB 12.8 g/dL (11.2-15.7); MCH 29.4 pg (27.0-33.0); MCHC 32.4 % (32.0-36.0); MCV 91 fL (80-95); Platelet Count 212 10^3/uL (130-400); RBC 4.35 10^6/uL (3.93-5.22); RDW 13.8 % (11.7-14.6); RDW-SD 46.2 fL; WBC 7.68 10^3/uL (4.4-10.8)
[2023-11-06 15:29] LABS: ESR 5 mm/hr (0-30)
[2023-11-06 15:35] LABS: Anion Gap 9.3 mmol/L (3-11); BUN 21 mg/dL (7-18); C-Reactive Protein 0.11 mg/dL (0.0-0.3); CO2 28.7 mmol/L (21.0-32.0); Calcium 9.6 mg/dL (8.5-10.1); Chloride 103 mmol/L (98-107); Estimated GFR 56.95 (mL/min/1.73m2); Glucose 151 mg/dL (74-106); Potassium 4.9 mmol/L (3.5-5.1); Sodium 141 mmol/L (136-145)
== END 2023-11-06 15:06 | disposition home or self-care (01) ==
LOC: NCHCN 15:05
PROVIDERS: PCP Family Medicine; Visit Provider Family Medicine
DX: E11.9 Type 2 diabetes mellitus without complications (principal); M35.3 Polymyalgia rheumatica
CPT/HCPCS: 80048; 85027; 85652; 83036; 86140

== ENCOUNTER → 2023-11-10 10:27 | Outpatient (BNVA) | payer MEDICARE, MEDICAID, SELFPAY | PROVIDERS: PCP Family Medicine; Visit Provider Internal Medicine Interventional Cardiology | DX: I47.10 Supraventricular tachycardia, unspecified (principal); I25.10 Atherosclerotic heart disease of native 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 without angina pectoris; I10 Essential (primary) hypertension | CPT/HCPCS: 99213 ==

== ENCOUNTER 2023-11-17 09:46 | Outpatient (RCR) | payer SELFPAY ==
[2023-10-19 00:05] VITALS: BP 112/58; PULSE 69
[2023-10-20 10:04] VITALS: BP 139/72; PULSE 72
[2023-10-27 10:04] VITALS: BP 159/75; PULSE 73
[2023-11-05 10:06] VITALS: BP 144/67; PULSE 75
[2023-11-10 09:49] VITALS: BP 153/82; PULSE 74
[2023-11-12 10:00] VITALS: BP 132/68; PULSE 70
[2023-11-17 09:48] VITALS: BP 151/68; PULSE 70
== END 2023-11-18 23:59 | disposition home or self-care (01) ==
LOC: CR 09:46
PROVIDERS: PCP Family Medicine; Visit Provider Internal Medicine Interventional Cardiology
DX: R69 Illness, unspecified (principal)

== ENCOUNTER → 2023-11-19 08:37 | Outpatient (BNVA) | payer MEDICARE, MEDICAID, SELFPAY | PROVIDERS: PCP Family Medicine; Referring Provider Family Medicine; Visit Provider Podiatrist | DX: M79.662 Pain in left lower leg (principal); L60.3 Nail dystrophy; E11.65 Type 2 diabetes mellitus with hyperglycemia; M79.671 Pain in right foot; M79.672 Pain in left foot; I73.9 Peripheral vascular disease, unspecified | CPT/HCPCS: 11719 ==

== ENCOUNTER 2023-11-30 10:45 | Outpatient (REF) | payer MEDICARE, MEDICAID, SELFPAY ==
[2023-11-30 15:38] LABS: ESR 6 mm/hr (0-30)
[2023-11-30 15:59] LABS: C-Reactive Protein < 0.50 mg/dL (<or=0.5)
== END 2023-11-30 10:46 | disposition home or self-care (01) ==
LOC: NCHCN 10:45
PROVIDERS: PCP Family Medicine; Visit Provider Family Medicine
DX: M35.3 Polymyalgia rheumatica (principal)
CPT/HCPCS: 85652; 86140

== ENCOUNTER 2023-12-15 09:55 | Outpatient (RCR) | payer SELFPAY ==
[2023-11-19 00:18] VITALS: BP 112/58; PULSE 69
[2023-11-19 10:04] VITALS: BP 166/73; PULSE 63
[2023-11-24 10:11] VITALS: BP 126/66; PULSE 70
[2023-11-26 10:19] VITALS: BP 129/65; PULSE 67
[2023-12-01 10:06] VITALS: BP 157/60; PULSE 68
[2023-12-10 10:29] VITALS: BP 140/70; PULSE 76
[2023-12-15 10:14] VITALS: BP 157/65; PULSE 78
== END 2023-12-17 23:59 | disposition home or self-care (01) ==
LOC: CR 09:55
PROVIDERS: PCP Family Medicine; Visit Provider Internal Medicine Cardiovascular Disease
DX: R69 Illness, unspecified (principal)

== ENCOUNTER 2024-01-01 13:48 | Outpatient (REF) | payer MEDICARE, MEDICAID, SELFPAY ==
[2024-01-01 15:18] LABS: HCT 38.8 % (36.0-46.0); HGB 12.8 g/dL (11.2-15.7); MCH 30.8 pg (27.0-33.0); MCV 94 fL (80-95); MPV 11.3 fL (8.0-11.0); Platelet Count 221 10^3/uL (130-400); RBC 4.15 10^6/uL (3.93-5.22); RDW 12.8 % (11.7-14.6); RDW-SD 43.8 fL; WBC 7.87 10^3/uL (4.4-10.8)
[2024-01-01 15:21] LABS: ESR 4 mm/hr (0-30)
[2024-01-01 15:47] LABS: ALT 32 U/L (14-59); AST 25 U/L (15-37); Albumin 3.9 g/dL (3.4-5.0); Alkaline Phosphatase 76 U/L (46-116); Anion Gap 9.8 mmol/L (3-11); BUN 22 mg/dL (7-18); Bilirubin, Total 0.3 mg/dL (0.2-1.0); C-Reactive Protein < 0.50 mg/dL (<or=0.5); CO2 27.2 mmol/L (21.0-32.0); CREATININE 0.9 mg/dL (0.55-1.02); Calcium 9.2 mg/dL (8.5-10.1); Chloride 105 mmol/L (98-107); Estimated GFR 64.63 (mL/min/1.73m2); Glucose 130 mg/dL (74-106); Potassium 4.7 mmol/L (3.5-5.1); Sodium 142 mmol/L (136-145); Total Protein 7.1 g/dL (6.4-8.2)
== END 2024-01-01 13:49 | disposition home or self-care (01) ==
LOC: NCHCN 13:48
PROVIDERS: PCP Family Medicine; Referring Provider Family Medicine; Visit Provider Family Medicine
DX: M35.3 Polymyalgia rheumatica (principal); I10 Essential (primary) hypertension
CPT/HCPCS: 80053; 85027; 85652; 86140

== ENCOUNTER 2024-01-14 09:52 | Outpatient (RCR) | payer SELFPAY ==
[2023-12-18 00:07] VITALS: BP 112/58; PULSE 69
[2023-12-22 09:59] VITALS: BP 134/66; PULSE 62
[2023-12-24 10:02] VITALS: BP 128/68; PULSE 58
[2023-12-29 10:04] VITALS: BP 132/69; PULSE 70
[2023-12-31 10:02] VITALS: BP 156/62; PULSE 78
[2024-01-05 13:07] VITALS: BP 135/62; PULSE 52
[2024-01-12 10:06] VITALS: BP 147/64; PULSE 68
[2024-01-14 10:21] VITALS: BP 136/62; PULSE 69
== END 2024-01-17 23:59 | disposition home or self-care (01) ==
LOC: CR 09:52
PROVIDERS: PCP Family Medicine; Visit Provider Internal Medicine Cardiovascular Disease
DX: R69 Illness, unspecified (principal)

== ENCOUNTER 2024-02-16 10:23 | Outpatient (RCR) | payer SELFPAY ==
[2024-01-19 11:00] VITALS: BP 143/68; PULSE 60
[2024-02-02 10:07] VITALS: BP 166/72; PULSE 67
[2024-02-04 09:51] VITALS: BP 149/68; PULSE 65
[2024-02-09 10:02] VITALS: BP 147/69; PULSE 66
[2024-02-16 10:25] VITALS: BP 128/70; PULSE 77
== END 2024-02-16 23:59 | disposition home or self-care (01) ==
LOC: CR 10:23
PROVIDERS: PCP Family Medicine; Visit Provider Internal Medicine Cardiovascular Disease
DX: R69 Illness, unspecified (principal)

== ENCOUNTER → 2024-02-16 11:04 | Outpatient (BNVA) | payer MEDICARE, MEDICAID, SELFPAY | PROVIDERS: PCP Family Medicine; Referring Provider Family Medicine | DX: M17.11 Unilateral primary osteoarthritis, right knee (principal); M17.12 Unilateral primary osteoarthritis, left knee | CPT/HCPCS: 20610; J1010 ==

== ENCOUNTER → 2024-02-18 09:04 | Outpatient (BNVA) | payer MEDICARE, MEDICAID, SELFPAY | PROVIDERS: PCP Family Medicine; Referring Provider Family Medicine; Visit Provider Podiatrist | DX: M79.662 Pain in left lower leg (principal); L60.3 Nail dystrophy; M79.671 Pain in right foot; E11.65 Type 2 diabetes mellitus with hyperglycemia; M79.672 Pain in left foot | CPT/HCPCS: 11719 ==

== ENCOUNTER 2024-03-17 10:02 | Outpatient (RCR) | payer SELFPAY ==
[2024-02-17 00:29] VITALS: BP 128/70; PULSE 77
[2024-02-23 11:26] VITALS: BP 140/63; PULSE 55
[2024-02-25 10:42] VITALS: BP 150/71; PULSE 75
[2024-03-01 10:17] VITALS: BP 141/60; PULSE 71
[2024-03-03 10:32] VITALS: BP 137/66; PULSE 69
[2024-03-08 10:19] VITALS: BP 123/66; PULSE 69
[2024-03-10 10:08] VITALS: BP 123/62; PULSE 54
[2024-03-15 10:06] VITALS: BP 138/70; PULSE 56
[2024-03-17 10:06] VITALS: BP 133/67; PULSE 61
== END 2024-03-18 23:59 | disposition home or self-care (01) ==
LOC: CR 10:02
PROVIDERS: PCP Family Medicine; Visit Provider Internal Medicine Cardiovascular Disease
DX: R69 Illness, unspecified (principal)

== ENCOUNTER 2024-04-14 10:14 | Outpatient (RCR) | payer SELFPAY ==
[2024-03-19 00:11] VITALS: BP 128/70; PULSE 77
[2024-03-24 10:18] VITALS: BP 154/70; PULSE 66
[2024-03-29 11:53] VITALS: BP 146/58; PULSE 55
[2024-04-05 13:13] VITALS: BP 125/65; PULSE 60
[2024-04-07 10:16] VITALS: BP 136/73; PULSE 64
[2024-04-14 10:10] VITALS: BP 120/72; PULSE 68
== END 2024-04-17 23:59 | disposition home or self-care (01) ==
LOC: CR 10:14
PROVIDERS: PCP Family Medicine; Visit Provider Internal Medicine Cardiovascular Disease
DX: R69 Illness, unspecified (principal)

== ENCOUNTER 2024-05-12 10:00 | Outpatient (RCR) | payer SELFPAY ==
[2024-04-19 10:18] VITALS: BP 132/65; PULSE 56
[2024-05-03 10:15] VITALS: BP 131/60; PULSE 58
[2024-05-05 13:33] VITALS: BP 136/59; PULSE 55
[2024-05-12 10:00] VITALS: BP 123/64; PULSE 53
== END 2024-05-18 23:59 | disposition home or self-care (01) ==
LOC: CR 10:00
PROVIDERS: PCP Family Medicine; Visit Provider Internal Medicine Cardiovascular Disease
DX: R69 Illness, unspecified (principal)

== ENCOUNTER 2024-05-19 12:59 | Outpatient (REF) | payer MEDICARE, MEDICAID, SELFPAY ==
[2024-05-19 15:17] LABS: HCT 38.9 % (36.0-46.0); HGB 12.9 g/dL (11.2-15.7); MCH 31.3 pg (27.0-33.0); MCHC 33.2 % (32.0-36.0); MCV 94 fL (80-95); MPV 11.3 fL (8.0-11.0); Platelet Count 196 10^3/uL (130-400); RBC 4.12 10^6/uL (3.93-5.22); RDW 11.9 % (11.7-14.6); RDW-SD 41.3 fL; WBC 6.89 10^3/uL (4.4-10.8)
[2024-05-19 15:19] LABS: ESR 4 mm/hr (0-30)
[2024-05-19 15:34] LABS: Anion Gap 8.7 mmol/L (3-11); BUN 25 mg/dL (7-18); CO2 29.3 mmol/L (21.0-32.0); CREATININE 1.2 mg/dL (0.55-1.02); Calcium 9.3 mg/dL (8.5-10.1); Chloride 104 mmol/L (98-107); Estimated GFR 45.48 (mL/min/1.73m2); Glucose 187 mg/dL (74-106); Potassium 4.8 mmol/L (3.5-5.1); Sodium 142 mmol/L (136-145)
[2024-05-19 15:42] LABS: C-Reactive Protein < 0.50 mg/dL (<or=0.5)
[2024-05-19 16:03] LABS: Hemoglobin A1C 7.5 % (<5.7)
[2024-05-20 18:35] LABS: C-Peptide 7.2 ng/mL (1.1 - 4.4)
[2024-05-21 16:44] LABS: Fructosamine 303 mcmol/L (200 - 285)
== END 2024-05-19 13:00 | disposition home or self-care (01) ==
LOC: NCHCN 12:59
PROVIDERS: Internal Medicine Endocrinology, Diabetes & Metabolism; PCP Family Medicine; Visit Provider Family Medicine
DX: N18.32 Chronic kidney disease, stage 3b
CPT/HCPCS: 80048; 85027; 85652; 82985; 83036; 84681; 86140

== ENCOUNTER → 2024-06-08 13:49 | Outpatient (BNVA) | payer MEDICARE, MEDICAID, SELFPAY | PROVIDERS: PCP Family Medicine; Referring Provider Family Medicine; Visit Provider Podiatrist | DX: L60.3 Nail dystrophy (principal); E11.65 Type 2 diabetes mellitus with hyperglycemia; M79.671 Pain in right foot; M79.672 Pain in left foot; N18.30 Chronic kidney disease, stage 3 unspecified; I73.89 Other specified peripheral vascular diseases; G62.9 Polyneuropathy, unspecified; M35.3 Polymyalgia rheumatica; Z79.52 Long term (current) use of systemic steroids | CPT/HCPCS: 11719; NC OV ==

== ENCOUNTER 2024-06-16 10:09 | Outpatient (RCR) | payer SELFPAY ==
[2024-05-19 00:33] VITALS: BP 123/64; PULSE 53
[2024-05-26 10:32] VITALS: BP 118/60; PULSE 51
[2024-05-31 09:54] VITALS: BP 139/68; PULSE 55
[2024-06-02 10:25] VITALS: BP 161/70; PULSE 69
[2024-06-07 10:11] VITALS: BP 130/66; PULSE 60
[2024-06-09 09:58] VITALS: BP 128/67; PULSE 53
[2024-06-16 10:15] VITALS: BP 145/65; PULSE 52
== END 2024-06-18 23:59 | disposition home or self-care (01) ==
LOC: CR 10:09
PROVIDERS: PCP Family Medicine; Visit Provider Internal Medicine Cardiovascular Disease
DX: R69 Illness, unspecified (principal)

== ENCOUNTER 2024-07-12 10:19 | Outpatient (RCR) | payer SELFPAY ==
[2024-06-19 00:12] VITALS: BP 123/64; PULSE 53
[2024-06-23 10:11] VITALS: BP 141/71; PULSE 54
[2024-06-30 10:29] VITALS: BP 131/59; PULSE 53
[2024-07-05 10:53] VITALS: BP 133/65; PULSE 53
[2024-07-07 10:54] VITALS: BP 152/73; PULSE 63
[2024-07-12 10:22] VITALS: BP 138/70; PULSE 50
== END 2024-07-18 23:59 | disposition home or self-care (01) ==
LOC: CR 10:19
PROVIDERS: PCP Family Medicine; Visit Provider Internal Medicine Cardiovascular Disease
DX: R69 Illness, unspecified (principal)

== ENCOUNTER 2024-08-16 10:10 | Outpatient (RCR) | payer SELFPAY ==
[2024-07-19 13:17] VITALS: BP 137/63; PULSE 52
[2024-07-21 09:58] VITALS: BP 132/61; PULSE 55; O2SAT 95
[2024-07-26 10:09] VITALS: BP 131/55; PULSE 50
[2024-07-28 10:00] VITALS: BP 157/67; PULSE 52
[2024-08-02 10:00] VITALS: BP 132/67; PULSE 55
[2024-08-04 09:44] VITALS: BP 138/68; PULSE 59; O2SAT 97
[2024-08-09 10:16] VITALS: BP 125/59; PULSE 62
[2024-08-11 09:56] VITALS: BP 123/58; PULSE 49; O2SAT 94
[2024-08-16 10:16] VITALS: BP 160/66; PULSE 66
== END 2024-08-18 23:59 | disposition home or self-care (01) ==
LOC: CR 10:10
PROVIDERS: PCP Family Medicine; Visit Provider Internal Medicine Cardiovascular Disease
DX: R69 Illness, unspecified (principal)

== ENCOUNTER → 2024-08-17 12:50 | Outpatient (BNVA) | payer MEDICARE, MEDICAID, SELFPAY | PROVIDERS: PCP Family Medicine; Referring Provider Family Medicine; Visit Provider Podiatrist | DX: E11.42 Type 2 diabetes mellitus with diabetic polyneuropathy (principal); D64.9 Anemia, unspecified; N18.9 Chronic kidney disease, unspecified; I73.89 Other specified peripheral vascular diseases | CPT/HCPCS: 11719 ==

== ENCOUNTER 2024-08-17 17:23 | Outpatient (REF) | payer MEDICARE, MEDICAID, SELFPAY ==
--- NOTE | 2024-08-17 10:45 | TONG_PTH ---
PATIENT: Francisca Kong LOC: [facility] U#:[id number] AGE/SX: 79/F ROOM: RE08/17/[address]: Timothy Colorado MD : 1945 BED: DIS: 08/17/2024 SPEC #: [id number] RECD: 08/17/24 17:33 STATUS: MAYNOR REJunito #: [id number] DESHAUN: 08/17/24 10:[address]: Timothy Colorado DEPT: Surgical Specimen RECD BY: Tosin Barros ENTERED: 08/17/24 17:34 SP TYPE: ROB THAKKAR DR: Terri Bowser V Tissues: 1 - TONGUE BIOPSY Procedures: GROSS AND MICRO LEVEL 4 Comments: [id number]
== END 2024-08-17 17:24 | disposition home or self-care (01) ==
LOC: LBN 17:23
PROVIDERS: PCP Family Medicine; Referring Provider Family Medicine; Visit Provider Otolaryngology
DX: R21 Rash and other nonspecific skin eruption (principal); K14.8 Other diseases of tongue
CPT/HCPCS: 88305

== ENCOUNTER 2024-09-08 10:02 | Outpatient (RCR) | payer SELFPAY ==
[2024-08-19 00:35] VITALS: BP 160/66; PULSE 66
[2024-08-23 10:08] VITALS: BP 129/67; PULSE 60
[2024-08-25 10:14] VITALS: BP 117/55; PULSE 49
[2024-08-30 09:55] VITALS: BP 155/75; PULSE 57
[2024-09-01 09:50] VITALS: BP 121/65; PULSE 56
[2024-09-06 10:07] VITALS: BP 138/48; PULSE 53
[2024-09-08 10:07] VITALS: BP 123/57; PULSE 50
== END 2024-09-17 23:59 | disposition home or self-care (01) ==
LOC: CR 10:02
PROVIDERS: PCP Family Medicine; Visit Provider Internal Medicine Cardiovascular Disease
DX: R69 Illness, unspecified (principal)

== ENCOUNTER 2024-09-27 01:10 | Outpatient (CLI) | payer MEDICARE, MEDICAID, SELFPAY ==
--- NOTE | 2024-09-27 07:00 | DI.CT_ITS ---
Exam(s) CT NECK W EXAM: CT NECK W INDICATION: Lt tongue lesion,concern for ca,tongue ulcer,k14.0. COMPARISON: No exams were available for comparison TECHNIQUE: Contrast: 100 mL Omnipaque 350 intravenous FINDINGS: VISUALIZED PARANASAL SINUSES: Unremarkable. NASOPHARYNX: Unremarkable ORODENTAL: Unremarkable. No obvious focal findings in the tongue. OROPHARYNX: Unremarkable. No masses evident. Uvula midline. HYPOPHARYNX: Unremarkable. Valleculae and epiglottis and aryepiglottic folds appear normal. VOCAL CORDS: Unremarkable. No masses evident. Subglottic airway appears unremarkable. THYROID GLAND: Unremarkable. Normal size and no obvious nodules. SALIVARY GLANDS: Unremarkable. No significant findings in the parotid and submandibular glands. LYMPH NODES: There is no adenopathy evident in the neck and supraclavicular regions. OTHER: Orbits appear unremarkable VISUALIZED LUNG APICES: No significant findings. IMPRESSION: 1. No significant focal findings on this CT scan of the soft tissues of the neck. 2. No obvious abnormalities evident at the level of the tongue (which is apparently the area of clin ical concern). 3. If clinically indicated follow-up MRI can be performed RADIATION DOSE DELIVERED: 244.41mGy.cm Total DLP DATA REPOSITORY: All CT scans at this facility are submitted to the National Radiology Data Registry (NRDR) Dose Index Registry (DIR) with the [employer] (ACR). RADIATION OPTIMIZATION: All CT scans at this facility use at least one of these dose optimization te chniques: automated exposure control; mA and/or kV adjustment per patient size (includes targeted exa ms where dose is matched to clinical indication); or iterative reconstruction.
[2024-09-27 09:34] LABS: CREATININE 1.3 mg/dL (0.55-1.02); Estimated GFR 41.31 (mL/min/1.73m2)
[2024-09-27] MEDS: Normal Saline - Diluent 50 ML VIAL IJ (10:46)
[2024-09-27] MEDS: Omnipaque 350 MG/ML 100 ML BTL IJ (10:47)
== END 2024-09-27 01:30 ==
PROVIDERS: PCP Family Medicine; Visit Provider Otolaryngology
DX: K14.8 Other diseases of tongue (principal)
CPT/HCPCS: 70491; 82565; J3490

== ENCOUNTER 2024-10-11 13:30 | Outpatient (CLI) | payer MEDICARE, MEDICAID, SELFPAY ==
--- NOTE | 2024-10-11 08:30 | DI.US_ITS ---
APPROVED REPORT EXAM: Comprehensive 2D, Doppler, and color-flow Echocardiogram Patient Location: Out-Patient Orchestra Leader: Bryson Humphreys RDCS (AE) Indications: Dyspnea, SOB Conclusion Normal left ventricular wall thickness and chamber size. Ejection fraction of 60%. Wall motion is n ormal Normal right ventricular size and function Left atrium is moderately dilated. Normal right atrial size Mitral annular calcification. Mild mitral regurgitation Mild tricuspid regurgitation. Estimated right ventricular systolic pressure is 27 mmHg Ascending aorta measures 3.58 cm Wall motion Left Ventricle The left ventricle is normal size. The left ventricular systolic function is normal. The left ventric ular ejection fraction is within the normal range. There is normal left ventricular wall thickness. T here is normal LV segmental wall motion. There is no ventricular septal defect visualized. LVEF is 60 -%. Right Ventricle The right ventricle is normal size. The right ventricular systolic function is normal. Atria Left atrium is moderately dilated. The right atrium size is normal. The interatrial septum is intact with no evidence for an atrial septal defect. Aortic Valve The aortic valve is normal in structure. Aortic valve is trileaflet. There is no aortic valvular sten osis. No aortic regurgitation is present. Mitral Valve Moderate mitral annular calcification. No evidence of mitral valve stenosis. Mild mitral regurgitatio n. Tricuspid Valve The tricuspid valve is normal in structure. There is no tricuspid valve stenosis. Mild tricuspid regu rgitation. The RVSP is 27.0 mmHg. Pulmonic Valve The pulmonary valve is normal in structure. There is no pulmonic valvular stenosis. Mild pulmonic reg urgitation. Great Vessels The aortic root is normal in size. The ascending aorta is mildly dilated. IVC is normal in size and c ollapses >50% with inspiration. Pericardium There is no pericardial effusion. 2D Dimensions IVSD d PLAX 0.56 cm F: 0.6-1.0 Ao Root d 2.68 cm F: 2.7 - 3.3 LVPW d PLAX 0.57 cm F: 0.6 - 1.0 Ao Asc Diam d 3.58 cm F: 2.3 - 3.1 LVID d PLAX 4.94 cm F: 3.8 - 5.2 LVDs 3.28 cm F: 2.2 - 3.5 LV EF Teichholz 62.1 % FS 33.53 % LV EDV (Teich) 114.7 mL LV ESV (Teich) 43.5 mL Stroke Vol Index (Teich) 41.41 M-Mode TAPSE 2.47 cm (M/F) >1.7 Auto EF LV EDV A4C 97.9 mL LV EDV A2C 92.2 mL LV EDV BP 95.9 mL LV ESV A4C 37.3 mL LV ESV A2C 36.5 mL LV ESV BP 37.1 mL LVEF(%) A4C 62.0 % LVEF(%) A2C 60.4 % LVEF(%) BP 61.3 % LV SV A4C 60.7 ml LV SV A2C 55.7 ml LV SV BP 58.8 ml LV CO A4C 3.0 L/min LV CO A2C 2.9 L/min LV CO BP 2.9 L/min HR A4C 49.12 BPM HR A2C 51.28 BPM LV EDV Index (BP) LA Volume LA Length A4C 5.6 cm LA Length A2C LA Area A4C s 20.81 cm2 LA Area A2C s LA Vol A4C A-L 65.49 mL LA Vol A2C A-L LA Vol Biplane A-L LA Vol A4C MOD 65.2 mL LA Vol A2C MOD LA Vol BP MOD RA Volume RA Area A4C 5.1 cm2 RA ESV A4C (A-L) 6.7mL RA Vol/BSA A4C A-L RA Length A4C 3.3 cm RA ESV A4C (MOD) 6.3mL LV Diastology MV E' medial 0.064 (>0.07 m/s) MV E Vmax 0.55 (0.4-1.3 m/s) MV E/E' MED 8.61 (<14) MV A Vmax 1.05 (0.4-1.3 m/s) MV E' lateral 0.071 (>0.1 m/s) E/A Ratio 0.5 MV E/E' LAT 7.75 (<14) MV E' Average 0.068 m/s MV E/E'(average) 8.15 Aortic Valve AoV Vmax 1.15 m/s LVOT Vmax 0.96 m/s AoV Peak Grad 5.3 mmHg LVOT Peak Grad 3.7 mmHg AoV Area (Vmax) 2.69 cm2 LVOT VTI 0.260 m AoV VTI 0.319 m LVOT Mean Grad 2.1 mmHg AoV Mean Charly. 0.82 m/s LVOT SV 83.65 mL AoV Mean Grad 3.0 mmHg LVOT Diam s 2.00 cm AoV Area (VTI) 2.62 cm2 AV Regurg Peak Gr. 5.31 mmHg Velocity Ratio 0.83 Mitral Valve MV DT 253 (160-240 msec) MV Vmax TIPS 1.05 m/s MV Mean Grad 1.1 (<2mmHg) MV VTI 0.322 m Pulmonary Valve PV Vmax 1.12 (0.5-1.5 m/s) RVOT Vmax 1.02 m/s PV Peak Grad 5.0 mmHg RVOT Peak Gr. 4.2 mmHg PV Mean Charly 0.73 m/s RVOT VTI 0.230 m PV Mean Grad 2.5 mmHg RVOT Mean Gr. 2.1 mmHg Tricuspid Valve RA Pressure 3.00 mmHg TR Vmax 2.45 m/s TR Peak Grad 23.9 mmHg RVSP (TR) 27.0 mmHg
== END 2024-10-11 13:50 ==
LOC: DI 13:34
PROVIDERS: PCP Family Medicine; Visit Provider Family Medicine
DX: R06.00 Dyspnea, unspecified (principal); I36.0 Nonrheumatic tricuspid (valve) stenosis; I34.0 Nonrheumatic mitral (valve) insufficiency
CPT/HCPCS: 93306

== ENCOUNTER 2024-10-18 10:52 | Outpatient (RCR) | payer SELFPAY ==
[2024-09-18 00:13] VITALS: BP 160/66; PULSE 66
[2024-09-20 10:38] VITALS: BP 137/64; PULSE 52
[2024-10-04 10:07] VITALS: BP 131/71; PULSE 68
[2024-10-11 09:58] VITALS: BP 127/59; PULSE 58
[2024-10-13 09:53] VITALS: BP 145/66; PULSE 55; O2SAT 97
[2024-10-18 10:59] VITALS: BP 127/68; PULSE 56
== END 2024-10-18 23:59 | disposition home or self-care (01) ==
LOC: CR 10:52
PROVIDERS: PCP Family Medicine; Visit Provider Internal Medicine Cardiovascular Disease
DX: R69 Illness, unspecified (principal)

== ENCOUNTER 2024-10-20 10:16 | Outpatient (RCR) | payer SELFPAY ==
[2024-10-19 00:22] VITALS: BP 160/66; PULSE 66
[2024-10-20 10:18] VITALS: BP 125/63; PULSE 79
== END 2024-11-18 23:59 | disposition home or self-care (01) ==
LOC: CR 10:16
PROVIDERS: PCP Family Medicine; Visit Provider Internal Medicine Cardiovascular Disease
DX: R69 Illness, unspecified (principal)

== ENCOUNTER 2024-12-27 16:05 | Outpatient (REF) | payer MEDICARE, MEDICAID, SELFPAY ==
[2024-12-27 22:08] LABS: ALT 16 U/L (14-59); AST 14 U/L (15-37); Alkaline Phosphatase 89 U/L (46-116); Anion Gap 11.5 mmol/L (3-11); BUN 25 mg/dL (7-18); Bilirubin, Total 0.3 mg/dL (0.2-1.0); CO2 24.5 mmol/L (21.0-32.0); CREATININE 1.1 mg/dL (0.55-1.02); Calcium 9.4 mg/dL (8.5-10.1); Chloride 105 mmol/L (98-107); Estimated GFR 50.48 (mL/min/1.73m2); Glucose 151 mg/dL (74-106); Potassium 4.6 mmol/L (3.5-5.1); Sodium 141 mmol/L (136-145); Total Protein 6.9 g/dL (6.4-8.2)
[2025-01-06 10:20] LABS: Fructosamine 291 mcmol/L (200-285)
== END 2024-12-27 16:06 | disposition home or self-care (01) ==
LOC: LBN 16:05
PROVIDERS: PCP Family Medicine; Visit Provider Internal Medicine Endocrinology, Diabetes & Metabolism
DX: E11.65 Type 2 diabetes mellitus with hyperglycemia (principal); E11.42 Type 2 diabetes mellitus with diabetic polyneuropathy; E11.22 Type 2 diabetes mellitus with diabetic chronic kidney disease; E11.69 Type 2 diabetes mellitus with other specified complication; K14.8 Other diseases of tongue
CPT/HCPCS: 80053; 82985

== ENCOUNTER → 2024-12-30 10:43 | Outpatient (BNVA) | payer MEDICARE, MEDICAID, SELFPAY | PROVIDERS: PCP Family Medicine; Referring Provider Family Medicine; Visit Provider Internal Medicine Cardiovascular Disease | DX: I25.10 Atherosclerotic heart disease of native 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 without angina pectoris (principal); I10 Essential (primary) hypertension; E11.9 Type 2 diabetes mellitus without complications | CPT/HCPCS: 99214 ==

== ENCOUNTER 2025-01-12 10:02 | Outpatient (RCR) | payer SELFPAY ==
[2025-01-03 10:19] VITALS: BP 154/77; PULSE 53
[2025-01-10 11:11] VITALS: BP 137/67; PULSE 62
[2025-01-12 10:07] VITALS: BP 154/71; PULSE 59; O2SAT 98
== END 2025-01-16 23:59 | disposition home or self-care (01) ==
LOC: CR 10:02
PROVIDERS: PCP Family Medicine; Visit Provider Internal Medicine Cardiovascular Disease
DX: R69 Illness, unspecified (principal)

== ENCOUNTER 2025-02-07 10:00 | Outpatient (RCR) | payer SELFPAY ==
[2025-01-17 00:11] VITALS: BP 154/71; PULSE 59
[2025-01-17 11:02] VITALS: BP 121/63; PULSE 54
[2025-01-26 10:00] VITALS: BP 158/78; PULSE 77; O2SAT 98
[2025-01-31 10:49] VITALS: BP 152/76; PULSE 67
[2025-02-02 10:19] VITALS: BP 155/74; PULSE 68
[2025-02-07 12:36] VITALS: BP 139/69; PULSE 63
== END 2025-02-15 23:59 | disposition home or self-care (01) ==
LOC: CR 10:00
PROVIDERS: PCP Family Medicine; Visit Provider Internal Medicine Cardiovascular Disease
DX: R69 Illness, unspecified (principal)

== ENCOUNTER 2025-02-10 00:24 | Outpatient (CLI) | payer MEDICARE, MEDICAID, SELFPAY ==
--- NOTE | 2025-02-10 | DI.CT_ITS ---
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 COMPARISON: CT CT CHEST W from 10/20/2024 TECHNIQUE: FINDINGS: CT NECK WITH: VISUALIZED PARANASAL SINUSES: Unremarkable. NASOPHAXRYNX: Unremarkable ORODENTAL: Unremarkable. No masses evident. OROPHARYNX: Unremarkable. No masses evident. HYPOPHARYNX: Unremarkable. Valleculae and epiglottis and aryepiglottic folds appear normal. VOCAL CORDS: Unremarkable. No masses evident. Subglottic airway appears unremarkable. THYROID GLAND: Unremarkable. Normal size and no obvious nodules. SALIVARY GLANDS: No significant focal findings in the parotid and submandibular glands. LYMPH NODES: There is an abnormally enlarged and centrally hypodense lymph node in the left side of t he neck anterior to the sternocleidomastoid muscle and left internal jugular vein (series 15/image 42 ), this measuring 1.4 x 1.2 cm lymp node in the upper left neck. No other left-sided lymphadenopathy. There is no adenopathy in the right side of the neck. There is no adenopathy in the supraclavicular regions. CT CHEST WITH: Lungs: There is a small 2 millimeter peripherally located noncalcified nodule in the lateral aspect o f the right upper lobe. Another 2 millimeter nodule seen in similar subpleural peripheral location i n right middle lobe. No infiltrates nor pleural effusion on the right side. In the opposite-left lung there are no significant focal findings and no pleural effusion. Mediastinum: There is a large posterior mediastinal retrocardiac hiatal hernia which measures 10 cm w silver by 6 cm AP. Visualized thyroid appears unremarkable. There is no hilar nor mediastinal adenopat hy. No axillary adenopathy. Cardiac: Heart size is normal. There is no pericardial effusion. The diameter of the ascending thor acic aorta is upper normal as is the diameter of the aortic arch and descending thoracic aorta. Ther e is no evidence of aortic dissection. Coronary artery calcification is noted. Osseous: No fractures nor significant osseous lesions Other: No adrenal masses. No splenomegaly. Small cyst or hemangioma is noted in the left hepatic lo be. IMPRESSION: 1. There is an abnormal appearing centrally hypodense lymph node in the upper left neck as described above measuring 14 x 12 mm. Concerning for metastatic given the history of left-sided lung cancer i n this patient. 2. There are 2 tiny peripherally located subpleural nodules in the right lung as described above. T hese are doubtful for metastatic disease. No significant left lung nodules. No infiltrates, pleural effusions nor intrathoracic adenopathy. 3. Large hiatal hernia noted measuring 10 cm wide by 6 cm AP. RADIATION DOSE DELIVERED: 352.77mGy.cm Total DLP DATA REPOSITORY: All CT scans at this facility are submitted to the National Radiology Data Registry (NRDR) Dose Index Registry (DIR) with the [employer] (ACR). RADIATION OPTIMIZATION: All CT scans at this facility use at least one of these dose optimization te chniques: automated exposure control; mA and/or kV adjustment per patient size (includes targeted exa ms where dose is matched to clinical indication); or iterative reconstruction.
[2025-02-10 12:27] LABS: Hemoglobin A1C 7.5 % (<5.7)
[2025-02-10 12:33] LABS: ALT 24 U/L (14-59); AST 13 U/L (15-37); Albumin 4.2 g/dL (3.4-5.0); Alkaline Phosphatase 96 U/L (46-116); Anion Gap 14.5 mmol/L (3-11); BUN 29 mg/dL (7-18); Bilirubin, Total 0.3 mg/dL (0.2-1.0); CO2 22.5 mmol/L (21.0-32.0); CREATININE 1.4 mg/dL (0.55-1.02); Calcium 9.6 mg/dL (8.5-10.1); Chloride 100 mmol/L (98-107); Glucose 441 mg/dL (74-106); Potassium 4.9 mmol/L (3.5-5.1); Sodium 137 mmol/L (136-145); Total Protein 7.8 g/dL (6.4-8.2)
[2025-02-10] MEDS: Normal Saline - Diluent 50 ML VIAL IJ (13:11)
[2025-02-10] MEDS: Omnipaque 350 MG/ML 100 ML BTL IJ (13:13)
[2025-02-14 15:54] LABS: Fructosamine 337 mcmol/L (200 - 285)
== END 2025-02-10 00:44 ==
PROVIDERS: PCP Family Medicine; Visit Provider Student in an Organized Health Care Education/Training Program
DX: K14.8 Other diseases of tongue (principal); K44.9 Diaphragmatic hernia without obstruction or gangrene
CPT/HCPCS: 70491; 80053; 71260; 82985; 83036; J3490

== ENCOUNTER → 2025-02-15 08:45 | Outpatient (BNVA) | payer MEDICARE, MEDICAID, SELFPAY | PROVIDERS: PCP Family Medicine; Referring Provider Family Medicine; Visit Provider Podiatrist | DX: E11.42 Type 2 diabetes mellitus with diabetic polyneuropathy (principal); D64.9 Anemia, unspecified; N18.9 Chronic kidney disease, unspecified; I73.89 Other specified peripheral vascular diseases; M79.671 Pain in right foot; M79.672 Pain in left foot; M35.3 Polymyalgia rheumatica; R09.89 Other specified symptoms and signs involving the circulatory and respiratory systems; R20.8 Other disturbances of skin sensation; L65.9 Nonscarring hair loss, unspecified; I83.93 Asymptomatic varicose veins of bilateral lower extremities; R60.0 Localized edema; R23.8 Other skin changes; L60.2 Onychogryphosis; M79.674 Pain in right toe(s); M79.675 Pain in left toe(s); R23.4 Changes in skin texture; L85.8 Other specified epidermal thickening | CPT/HCPCS: 11055; 11719 ==

== ENCOUNTER 2025-03-16 10:30 | Outpatient (RCR) | payer SELFPAY ==
[2025-02-16 00:06] VITALS: BP 154/71; PULSE 59
[2025-02-16 11:03] VITALS: BP 137/74; PULSE 57
[2025-02-21 10:18] VITALS: BP 113/61; PULSE 54
[2025-02-23 10:21] VITALS: BP 126/57; PULSE 55
[2025-03-02 10:47] VITALS: BP 136/71; PULSE 59
[2025-03-14 11:59] VITALS: BP 140/67; PULSE 56
[2025-03-16 10:53] VITALS: BP 116/64; PULSE 55
== END 2025-03-18 23:59 | disposition home or self-care (01) ==
LOC: CR 10:30
PROVIDERS: PCP Family Medicine; Visit Provider Internal Medicine Cardiovascular Disease
DX: R69 Illness, unspecified (principal)

== ENCOUNTER 2025-03-17 00:19 | Outpatient (CLI) | payer MEDICARE, MEDICAID, SELFPAY ==
--- NOTE | 2025-03-17 10:47 | DI.MAMMO_ITS ---
Exam(s) MG MAMMO SCREENING 60 MIN DUR EXAM: MG MAMMO SCREENING 60 MIN DUR CLINICAL HISTORY: Z12.31 Screening. TECHNIQUE: Bilateral full field digital CC and MLO mammographic images were obtained with 3D tomosyn thesis and utilizing computer aided detection (CAD). COMPARISON: Prior mammograms were reviewed. FINDINGS: There has been no significant change in the appearance and distribution of the fibroglandular tissue. There are no new spiculated masses nor malignant appearing microcalcification groups. There is no significant architectural distortion nor skin thickening-retraction. IMPRESSION: No radiographic evidence of malignancy. BI-RADS Category 1 - Negative Breast Density - Category B - There are scattered areas of fibroglandular density. Breast density Category C or D implies that the patient has dense breast tissue. Dense breast tissue can make it harder to find cancer on a mammogram. Dense breast tissue is also associated with an incr eased risk of breast cancer. This information about the result of the mammogram report was provided to the patient to raise their awareness. Use this report when you speak with the patient about their risks for breast cancer, which includes their family history. At that time, you may recommend additional screening tests (Ultrasoun d or MRI) as these tests may add significant information. A negative radiographic report should not delay biopsy if a dominant or clinically suspicious mass is present. Up to ten percent of cancers are not identified on mammography. A negative report may reinforce clinical impression. Adenosis and dense breasts may obscure an underlying neoplasm. False positive reports average 6 to 10%. Patient will receive a letter notifying them of these results.
== END 2025-03-17 00:39 ==
LOC: DI 00:20
PROVIDERS: PCP Family Medicine; Visit Provider Family Medicine
DX: Z12.31 Encounter for screening mammogram for malignant neoplasm of breast (principal); R92.323 Mammographic fibroglandular density, bilateral breasts
CPT/HCPCS: 77063; 77067

== ENCOUNTER 2025-04-13 10:00 | Outpatient (RCR) | payer SELFPAY ==
[2025-03-19 00:05] VITALS: BP 154/71; PULSE 59
[2025-03-21 11:14] VITALS: BP 144/69; PULSE 52
[2025-03-28 10:35] VITALS: BP 149/73; PULSE 61
[2025-03-30 11:26] VITALS: BP 140/67; PULSE 69
[2025-04-04 10:06] VITALS: BP 145/65; PULSE 60
[2025-04-06 10:38] VITALS: BP 132/72; PULSE 57
[2025-04-13 10:00] VITALS: BP 148/70; PULSE 58
== END 2025-04-17 23:59 | disposition home or self-care (01) ==
LOC: CR 10:00
PROVIDERS: PCP Family Medicine; Visit Provider Internal Medicine Cardiovascular Disease
DX: R69 Illness, unspecified (principal)

== ENCOUNTER 2025-04-27 13:21 | Outpatient (REF) | payer MEDICARE, MEDICAID, SELFPAY ==
[2025-04-27 16:01] LABS: HCT 35.3 % (36.0-46.0); HGB 11.8 g/dL (11.2-15.7); MCH 30.9 pg (27.0-33.0); MCHC 33.4 % (32.0-36.0); MCV 92 fL (80-95); MPV 10.9 fL (8.0-11.0); Platelet Count 196 10^3/uL (130-400); RBC 3.82 10^6/uL (3.93-5.22); RDW 12.9 % (11.7-14.6); RDW-SD 43.6 fL; WBC 9.25 10^3/uL (4.4-10.8)
[2025-04-27 16:05] LABS: Anion Gap 5.9 mmol/L (3-11); BUN 34 mg/dL (7-18); CO2 31.1 mmol/L (21.0-32.0); Calcium 9.4 mg/dL (8.5-10.1); Chloride 103 mmol/L (98-107); Estimated GFR 56.25 (mL/min/1.73m2); Glucose 89 mg/dL (74-106); Potassium 4.5 mmol/L (3.5-5.1); Sodium 140 mmol/L (136-145)
[2025-04-27 16:17] LABS: Hemoglobin A1C 7.7 % (<5.7)
[2025-04-27 16:21] LABS: Digoxin 0.51 ng/mL (0.90-2.00)
== END 2025-04-27 13:22 | disposition home or self-care (01) ==
LOC: NCHCN 13:21
PROVIDERS: PCP Family Medicine; Visit Provider Family Medicine
DX: I25.10 Atherosclerotic heart disease of native 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 without angina pectoris (principal); D64.9 Anemia, unspecified; E11.65 Type 2 diabetes mellitus with hyperglycemia; I10 Essential (primary) hypertension
CPT/HCPCS: 80048; 85027; 80162; 83036

== ENCOUNTER → 2025-04-28 10:19 | Outpatient (BNVA) | payer MEDICARE, MEDICAID, SELFPAY | PROVIDERS: PCP Family Medicine; Visit Provider Internal Medicine Cardiovascular Disease | DX: I25.10 Atherosclerotic heart disease of native 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 without angina pectoris (principal); I10 Essential (primary) hypertension | CPT/HCPCS: 99214 ==

== ENCOUNTER 2025-05-04 10:00 | Outpatient (RCR) | payer SELFPAY ==
[2025-04-25 10:06] VITALS: BP 113/67; PULSE 74
[2025-04-27 10:23] VITALS: BP 128/79; PULSE 54
[2025-05-02 10:40] VITALS: BP 125/73; PULSE 63
[2025-05-04 09:20] VITALS: BP 131/75; PULSE 84
== END 2025-05-18 23:59 | disposition home or self-care (01) ==
LOC: CR 10:00
PROVIDERS: PCP Family Medicine; Visit Provider Internal Medicine Cardiovascular Disease
DX: I25.10 Atherosclerotic heart disease of native 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 without angina pectoris (principal); I10 Essential (primary) hypertension
CPT/HCPCS: S9472

== ENCOUNTER → 2025-05-30 08:38 | Outpatient (BNVA) | payer MEDICARE, MEDICAID, SELFPAY | PROVIDERS: PCP Family Medicine; Referring Provider Family Medicine; Visit Provider Podiatrist | DX: E11.42 Type 2 diabetes mellitus with diabetic polyneuropathy (principal); D64.9 Anemia, unspecified; N18.9 Chronic kidney disease, unspecified; I73.89 Other specified peripheral vascular diseases; M79.671 Pain in right foot; M79.672 Pain in left foot; L60.2 Onychogryphosis; R09.89 Other specified symptoms and signs involving the circulatory and respiratory systems; R20.8 Other disturbances of skin sensation; L65.9 Nonscarring hair loss, unspecified; I83.93 Asymptomatic varicose veins of bilateral lower extremities; R60.0 Localized edema; R23.8 Other skin changes; L85.8 Other specified epidermal thickening | CPT/HCPCS: 11055; 11719 ==

== ENCOUNTER 2025-06-14 01:12 | Outpatient (CLI) | payer MEDICARE, MEDICAID, SELFPAY ==
--- NOTE | 2025-06-14 | DI.US_ITS ---
Exam(s) US PELVIS TRANSVAGINAL EXAM: US PELVIS TRANSVAGINAL CLINICAL HISTORY: F/U CYSTIC,SEPTATED RT PELVIC MASS,R19.00. TECHNIQUE: Transabdominal and transvaginal pelvic ultrasound was performed using standard protocol. COMPARISON: US PELVIS TRANSVAG from 03/21/2014 US US RENAL from 06/01/2025 FINDINGS: UTERUS: Position: Anteverted. Size: 6.2 long by 3.4 AP by 4.2 transverse cm Endometrium: 0.6 cm. This is considered thickened in this postmenopausal patient. Myometrium: Unremarkable. Cervix: Unremarkable. OVARIES: The ovaries were not visualized on this examination. No adnexal masses identified. CUL-DE-SAC: Free fluid: None. Other: The previously described cystic right adnexal lesion likely reflects the cyst in the inferior pole of the right kidney. IMPRESSION: 1. There is a 6 mm endometrial stripe in this postmenopausal patient. Gynecologic consult should be considered. 2. The ovaries were not visualized on this examination. No adnexal masses are seen sonographically. 3. The cystic lesion described in the adnexa on the previous ultrasound likely reflected the right renal cyst. DATA REPOSITORY:
== END 2025-06-14 01:32 ==
LOC: DI 01:13
PROVIDERS: PCP Family Medicine; Visit Provider Family Medicine
DX: R93.5 Abnormal findings on diagnostic imaging of other abdominal regions, including retroperitoneum (principal)
CPT/HCPCS: 76830; 76856

== ENCOUNTER 2025-06-15 10:00 | Outpatient (RCR) | payer SELFPAY ==
[2025-05-19 00:10] VITALS: BP 131/75; PULSE 84
[2025-05-30 10:00] VITALS: BP 102/59; PULSE 57
[2025-06-13 10:15] VITALS: BP 124/51; PULSE 57
[2025-06-15 10:00] VITALS: BP 121/58; PULSE 51
== END 2025-06-18 23:59 | disposition home or self-care (01) ==
LOC: CR 10:00
PROVIDERS: PCP Family Medicine; Visit Provider Internal Medicine Cardiovascular Disease
DX: R69 Illness, unspecified (principal)

== ENCOUNTER 2025-06-29 14:15 | Outpatient (REF) | payer MEDICARE, MEDICAID, SELFPAY | END 2025-06-29 14:16 | disposition home or self-care (01) | LOC: LBN 14:15 | PROVIDERS: PCP Family Medicine; Visit Provider Obstetrics & Gynecology | DX: N85.8 Other specified noninflammatory disorders of uterus (principal) | CPT/HCPCS: 88305 ==

== ENCOUNTER 2025-07-18 10:00 | Outpatient (RCR) | payer SELFPAY ==
[2025-06-20 10:34] VITALS: BP 147/70; PULSE 73
[2025-06-22 10:25] VITALS: BP 127/70; PULSE 49
[2025-06-27 10:11] VITALS: BP 136/69; PULSE 57
[2025-07-04 10:44] VITALS: BP 134/57; PULSE 56
[2025-07-06 10:29] VITALS: BP 143/60; PULSE 59
[2025-07-11 10:09] VITALS: BP 143/69; PULSE 62
[2025-07-13 10:00] VITALS: BP 152/72; PULSE 57
[2025-07-18 10:26] VITALS: BP 132/67; PULSE 49
== END 2025-07-18 23:59 | disposition home or self-care (01) ==
LOC: CR 10:00
PROVIDERS: PCP Family Medicine; Visit Provider Internal Medicine Cardiovascular Disease
DX: R69 Illness, unspecified (principal)

== ENCOUNTER 2025-08-10 10:00 | Outpatient (RCR) | payer SELFPAY ==
[2025-07-19 00:21] VITALS: BP 132/67; PULSE 49
[2025-07-20 10:48] VITALS: BP 147/57; PULSE 57
[2025-08-01 11:28] VITALS: BP 134/74; PULSE 53
[2025-08-03 10:17] VITALS: BP 150/85; PULSE 49
[2025-08-10 10:10] VITALS: BP 143/62; PULSE 64
== END 2025-08-18 23:59 | disposition home or self-care (01) ==
LOC: CR 10:00
PROVIDERS: PCP Family Medicine; Visit Provider Internal Medicine Cardiovascular Disease
DX: R69 Illness, unspecified (principal)

== ENCOUNTER → 2025-08-18 10:27 | Outpatient (BNVA) | payer MEDICARE, MEDICAID, SELFPAY | PROVIDERS: PCP Family Medicine; Referring Provider Family Medicine; Visit Provider Physician Assistant | DX: M17.0 Bilateral primary osteoarthritis of knee (principal) | CPT/HCPCS: 20610; J1010 ==

== ENCOUNTER 2025-08-23 11:19 | Emergency (ER) | payer MEDICARE, MEDICAID, SELFPAY ==
[2025-08-23 11:21] VITALS: BP 150/85; PULSE 66; RESP 18; TEMP 36.2; O2SAT 95
[2025-08-23 12:13] LABS: Abs Immature Grans 0.06 10^3/uL (0.0-0.06); HCT 39.4 % (36.0-46.0); HGB 12.9 g/dL (11.2-15.7); Immature Grans % 0.6 %; MCH 30.8 pg (27.0-33.0); MCHC 32.7 % (32.0-36.0); MCV 94 fL (80-95); MPV 10.5 fL (8.0-11.0); Platelet Count 206 10^3/uL (130-400); RBC 4.19 10^6/uL (3.93-5.22); RDW 11.7 % (11.7-14.6); RDW-SD 40.4 fL; WBC 10.66 10^3/uL (4.4-10.8)
[2025-08-23 12:28] LABS: ALT 11 U/L (14-59); AST 8 U/L (15-37); Albumin 4.0 g/dL (3.4-5.0); Alkaline Phosphatase 82 U/L (46-116); Anion Gap 10.1 mmol/L (3-11); BUN 27 mg/dL (7-18); Bilirubin, Total 0.4 mg/dL (0.2-1.0); CO2 26.9 mmol/L (21.0-32.0); Calcium 9.3 mg/dL (8.5-10.1); Chloride 102 mmol/L (98-107); Glucose 185 mg/dL (74-106); Lipase 19 U/L (<78); Potassium 4.4 mmol/L (3.5-5.1); Sodium 139 mmol/L (136-145); Total Protein 7.6 g/dL (6.4-8.2)
[2025-08-23] MEDS: Lidocaine 5% Patch 1 PATCH TP (12:28)
[2025-08-23 12:32] VITALS: BP 148/90; PULSE 59; RESP 20; O2SAT 97
[2025-08-23 12:55] VITALS: BP 148/90; PULSE 59; RESP 20; TEMP 36.2; O2SAT 97
--- NOTE | 2025-08-23 13:05 | DI.RAD_ITS ---
Exam(s) XR RIBS RT W PA LAT CHEST EXAM: XR RIBS RT W PA LAT CHEST CLINICAL HISTORY: right rib pain, crepitus ribs 7-9(ant/lifting inj TECHNIQUE: 2D digital imaging was performed. COMPARISON: CR XR CHEST 2V PA LATERAL from 09/15/2023 FINDINGS: SIX VIEWS TOTAL RIBS 4 VIEWS-RIGHT There are no obvious acute rib fractures evident. No lytic rib lesions identified. CXR- 2 VIEWS: No lung contusion or pneumothorax. There is no pleural effusion evident. Heart size normal. Large retrocardiac hiatal hernia is again noted. IMPRESSION: 1. No obvious rib fractures evident. Also no significant rib lesions. 2. No ipsilateral lung nor pleural abnormality evident. No pneumothorax. Large hiatus hernia again noted. DATA REPOSITORY: RADIATION DOSE DELIVERED:
[2025-08-23] MEDS: oxyCODONE 5 MG TAB PO (13:14)
[2025-08-23 14:42] VITALS: BP 155/95; PULSE 62; O2SAT 97
[2025-08-23] MEDS: Lidocaine 5% Patch 3 PATCH TP (14:53)
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
== END 2025-08-23 14:52 | disposition home or self-care (01) ==
PROVIDERS: Emergency Provider Physician Assistant; PCP Family Medicine
DX: R07.9 Chest pain, unspecified (principal)
CPT/HCPCS: 99284 ×2; 80053; 83690; 71046; 71100; 85025

== ENCOUNTER → 2025-08-30 01:17 | Outpatient (CLI) | payer MEDICARE, MEDICAID, SELFPAY ==
--- NOTE | 2025-08-30 | DI.CT_ITS ---
Exam(s) CT NECK CHEST W EXAM: CT NECK CHEST W CLINICAL HISTORY: CA ORAL CAVITY, C06.9, RADIOTHERAPY HEAD/NECK CA RECURRENCE TECHNIQUE: Imaging Protocol: Axial computed tomography images with coronal and sagittal reformatted images were created and reviewed. Computer aided detection (CAD) was utilized. CONTRAST MATERIAL: Intravenous: Omnipaque 350 Contrast volume:100 ml Oral: no COMPARISON: CT CT NECK CHEST W from 02/10/2025 CR XR RIBS RT W PA LAT CHEST from 08/23/2025 FINDINGS: Neck: Parotids/submandibular/thyroid gland: Normal. Lymphadenopathy: Slight decrease in size of previously noted left sided necrotic lymph node in the retro mandibular region measuring 10 x 12 millimeters compared to 14 by 12 millimeters the previous exam. Carotids/Jugular: There is heavy plaque at both common carotid bulbs and proximal internal carotid arteries causing moderate stenosis. Soft tissues: The floor the mouth is unremarkable. No visible tongue mass. The epiglottis and vocal cords are within normal limits. Bones: No fracture. No lytic or blastic lesions. Chest: Tracheobronchial tree: Patent where visualized. Mediastinum and Theodora: Necrotic node noted in the subcarinal region which is new from the prior exam measuring 2.2 by 1.8 cm. Mild right superior hilar adenopathy measuring 16 millimeters. Large hiatal hernia again noted. Pulmonary parenchyma: Several new areas of nodularity in the posterior right upper lobe, largest measuring 7 millimeters. Two tiny nodules are again noted in the right upper and middle lobes. Atelectasis adjacent to the large hiatal hernia. Pleura: No effusion or pneumothorax. Heart/Aorta: Thoracic aorta non-dilated. The heart is not dilated. Stents and 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 calcifications are seen. Pulmonary arteries: No evidence of emboli. Bones: No fracture. No lytic or blastic lesions. Visualized portions of the upper abdomen: Liver: Evaluation mildly limited by streak artifact related to arm positioning. Normal density. Cysts again noted in the left lobe. Pancreas: Somewhat atrophic., No abnormal calcifications or inflammatory process. Spleen: Normal. Adrenal glands: No masses seen. Abdominal Aorta: Abdominal portion non-dilated. IMPRESSION: Neck CT: Decreased size of necrotic lymph node in the upper left neck. Chest CT: New pulmonary nodules in the superior segment of the right upper lobe. New right hilar and subcarinal adenopathy. RADIATION DOSE DELIVERED: 400.88mGy.cm Total DLP DATA REPOSITORY: All CT scans at this facility are submitted to the National Radiology Data Registry (NRDR) Dose Index Registry (DIR) with the [employer] [place] ([employer]). RADIATION OPTIMIZATION: All CT scans at this facility use at least one of these dose optimization techniques: automated exposure control; mA and/or kV adjustment per patient size (includes targeted exams where dose is matched to clinical indication); or iterative reconstruction.
[2025-08-30] MEDS: Normal Saline - Diluent 50 ML VIAL IJ (13:56)
[2025-08-30] MEDS: Normal Saline Flush 10 ML SYR IVP (13:56)
[2025-08-30] MEDS: Omnipaque 350 MG/ML 100 ML BTL IJ (13:56)
== END ==
PROVIDERS: PCP Family Medicine; Visit Provider Preventive Medicine Undersea and Hyperbaric Medicine
DX: C06.9 Malignant neoplasm of mouth, unspecified (principal)
CPT/HCPCS: 70491; 71260; 82565; J3490

== ENCOUNTER 2025-09-05 10:00 | Outpatient (RCR) | payer SELFPAY ==
[2025-08-19 00:24] VITALS: BP 143/62; PULSE 64
[2025-08-31 10:23] VITALS: BP 147/70; PULSE 56
[2025-09-05 10:26] VITALS: BP 147/61; PULSE 54
== END 2025-09-17 23:59 | disposition home or self-care (01) ==
LOC: CR 10:00
PROVIDERS: PCP Family Medicine; Visit Provider Internal Medicine Cardiovascular Disease
DX: R69 Illness, unspecified (principal)

== ENCOUNTER 2025-09-15 16:03 | Outpatient (REF) | payer MEDICARE, MEDICAID, SELFPAY ==
[2025-09-15 19:41] LABS: ESR 16 mm/hr (0-30)
== END 2025-09-15 16:04 | disposition home or self-care (01) ==
LOC: NCHCN 16:03
PROVIDERS: PCP Family Medicine; Visit Provider Family Medicine
DX: M35.3 Polymyalgia rheumatica (principal)
CPT/HCPCS: 85652

== ENCOUNTER → 2025-09-19 08:04 | Outpatient (BNVA) | payer MEDICARE, MEDICAID, SELFPAY | PROVIDERS: PCP Family Medicine; Referring Provider Family Medicine; Visit Provider Podiatrist | DX: E11.22 Type 2 diabetes mellitus with diabetic chronic kidney disease (principal); E11.42 Type 2 diabetes mellitus with diabetic polyneuropathy; N18.9 Chronic kidney disease, unspecified; I73.89 Other specified peripheral vascular diseases; M35.3 Polymyalgia rheumatica; D64.9 Anemia, unspecified; M79.671 Pain in right foot; M79.672 Pain in left foot; L60.2 Onychogryphosis; L84 Corns and callosities; R09.89 Other specified symptoms and signs involving the circulatory and respiratory systems; R20.8 Other disturbances of skin sensation; L65.9 Nonscarring hair loss, unspecified; I83.93 Asymptomatic varicose veins of bilateral lower extremities; R60.0 Localized edema; M20.41 Other hammer toe(s) (acquired), right foot; M20.42 Other hammer toe(s) (acquired), left foot; R23.4 Changes in skin texture; L85.8 Other specified epidermal thickening | CPT/HCPCS: 11055; 11719 ==

== ENCOUNTER 2025-10-03 10:00 | Outpatient (RCR) | payer SELFPAY ==
[2025-09-18 00:19] VITALS: BP 147/61; PULSE 54
[2025-09-19 10:48] VITALS: BP 136/65; PULSE 55
[2025-09-26 10:33] VITALS: BP 137/70; PULSE 58
[2025-10-03 10:54] VITALS: BP 133/65; PULSE 53
== END 2025-10-18 23:59 | disposition home or self-care (01) ==
LOC: CR 10:00
PROVIDERS: PCP Family Medicine; Visit Provider Internal Medicine Cardiovascular Disease
DX: R69 Illness, unspecified (principal)